=== PATIENT | male | born 1945 | race Caucasian/White ===

== ENCOUNTER → 2021-12-14 16:17 | Outpatient (CLI) | payer MEDICARE, SELFPAY | PROVIDERS: PCP Family Medicine; Visit Provider Ophthalmology | DX: Z01.812 Encounter for preprocedural laboratory examination (principal); Z20.822 Contact with and (suspected) exposure to COVID-19 | CPT/HCPCS: C9803; U0003; U0005 ==

== ENCOUNTER 2021-12-15 08:47 | Day surgery (SDC) | payer MEDICARE, OTHER, SELFPAY ==
[2021-12-15] VITALS (8 sets, daily range): BP systolic 131–170; BP diastolic 69–86; PULSE 56–64; RESP 16–18; TEMP 36.2–36.8; O2SAT 97–100; BMI 33.0
== END 2021-12-15 11:14 | disposition home or self-care (01) ==
LOC: OR 08:50
PROVIDERS: PCP Family Medicine; Visit Provider Ophthalmology
DX: H26.9 Unspecified cataract (principal); J44.9 Chronic obstructive pulmonary disease, unspecified; M19.90 Unspecified osteoarthritis, unspecified site; Z72.0 Tobacco use
CPT/HCPCS: 66982; V2632

== ENCOUNTER → 2021-12-28 11:04 | Outpatient (CLI) | payer MEDICARE, SELFPAY | PROVIDERS: PCP Family Medicine; Visit Provider Ophthalmology | DX: Z01.812 Encounter for preprocedural laboratory examination (principal); Z20.822 Contact with and (suspected) exposure to COVID-19 | CPT/HCPCS: C9803; U0003; U0005 ==

== ENCOUNTER 2021-12-29 07:31 | Day surgery (SDC) | payer MEDICARE, OTHER, SELFPAY ==
[2021-12-24 16:08] VITALS: BMI 33.0
[2021-12-29] VITALS (7 sets, daily range): BP systolic 135–169; BP diastolic 67–87; PULSE 54–60; RESP 16–18; TEMP 36.3–36.4; O2SAT 96–100
== END 2021-12-29 10:01 | disposition home or self-care (01) ==
LOC: OR 07:32
PROVIDERS: PCP Family Medicine; Visit Provider Ophthalmology
DX: H25.811 Combined forms of age-related cataract, right eye (principal)
CPT/HCPCS: 66984; V2632

== ENCOUNTER → 2022-02-09 08:56 | Outpatient (CLI) | payer MEDICARE, OTHER, SELFPAY ==
--- NOTE | 2022-02-09 09:04 | XR_ITS ---
FINAL REPORT CLINICAL HISTORY: hand pain..no trauma FINDINGS: Right hand Three views were obtained. There is no acute fracture or dislocation. There are moderate degenerative changes of the 1st carpometacarpal joint. Mild degenerative changes are seen elsewhere in the hand and wrist. There is several soft tissue calcifications at the palm. IMPRESSION: Degenerative changes without acute bony abnormality. Reviewed, Interpreted and Dictated by Spenser Gong III, MD Transcribed by Eleonora Bazan Authenticated and [facility]
--- NOTE | 2022-02-09 09:04 | XR_ITS ---
FINAL REPORT CLINICAL HISTORY: hand pain..no trauma FINDINGS: Left hand Three views were obtained. There is no acute fracture or dislocation. There are moderate degenerative changes of the 1st carpometacarpal joint. Mild degenerative changes are seen elsewhere in the hand and wrist. There is calcification in the region of the triangular fibrocartilage. IMPRESSION: Degenerative changes without acute bony abnormality. Reviewed, Interpreted and Dictated by Spenser Gong III, MD Transcribed by Eleonora Bazan Authenticated and [facility]
== END ==
PROVIDERS: PCP Family Medicine; Visit Provider Orthopaedic Surgery
DX: M79.641 Pain in right hand; M79.642 Pain in left hand
CPT/HCPCS: 73130

== ENCOUNTER → 2022-12-30 10:54 | Outpatient (POV) | payer MEDICARE, OTHER, SELFPAY ==
[2022-12-30 11:20] VITALS: BP 116/65; PULSE 69; RESP 20; O2SAT 100; BMI 32.4
--- NOTE | 2022-12-30 13:38 | EXP.PAIN.OV ---
HPI Data of Consult Patient: new to practice Consult date: 12/30/22 Requesting Physician: Charity Yang APRN Primary Care Provider: Raphael Mendoza MD Consult Narrative Reason for consult: Low back pain, bilateral leg pain, left buttocks pain History of present illness: Mr. Basurto is a 77 year old male who presents today as a new patient. He is a referral from Dr. Mendoza's office. Today he rates his pain a 7 out of 10. Patient states his pain is all in his low back with radiating symptoms into his lower extremities with numbness and tingling along with left buttocks pain. Patient states this has been going on for over 12 years and progressively worsened over time. 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 He does also have a history of neck pain with cervical fusion years ago and he still continues to have numbness into his bilateral hands and fingers. Patient does describe his back pain as a achy sensation that is worse with increased activity. Patient states he has had injections in the past that did provide significant relief however approximately 2 years ago he went to a pain doctor in [place] who did a epidural that caused significant pain and worsening symptoms. He states at that time he decided to stop injective therapy however his back has gotten much worse and he feels like he needs injections again. Patient has tried Tylenol and ibuprofen along with topicals with minimal relief. He is currently in physical therapy at [facility] in [place] however he has not noticed significant relief. Patient does have a longstanding history of neuropathy and sciatica. He states years ago he did go to a chiropractor 6 different occasions and he was able to relieve his right SI pain. He does frequently use a walker to get around at home and does present today in wheelchair. Patient is currently managed with pregabalin 200 mg 3 times a day from an outside provider. Patient denies any side effects from this medication. Patient also denies any recent imaging of his lumbar spine for at least 10 years. His Dionisio is [id number]. Its been reviewed and appropriate. CC: Charity Yang APRN [facility] Disclaimer: The information contained in this section may have been updated after the patient was seen, as this information can be updated by other users. Medical History (Updated 12/30/22 @ 13:49 by Charity Yang APRN) Aneurysm Anxiety BPH (benign prostatic hyperplasia) Chronic pain syndrome DDD (degenerative disc disease) History of alcohol abuse History of substance abuse HLD (hyperlipidemia) HTN (hypertension) Hypertension Kyphosis Neuropathy Obesity Osteoarthritis Osteopenia Peripheral neuropathy Surgical History (Updated 12/30/22 @ 11:30 by Roula Holder, RN) History of heart bypass surgery Hx of cervical spinal arthrodesis S/p total knee replacement, bilateral Family History Other Cancer Social History (Updated 12/30/22 @ 11:30 by Roula Holder RN) Smoking Status: Current every day smoker tobacco type: cigarettes packs per day: 1 alcohol intake: never current occupational status: retired Travel in the last 8 weeks: None household members: spouse housing: house current occupational exposures/hazards: No caffeine: Yes Review of Systems Review of Systems Review of systems:: pertinent systems reviewed and negative unless documented below Review of systems (narrative): Review of Systems: General: No recent weight changes, no fever, no sleep disturbances Respiratory: No cough, no shortness of air, no recurring pulmonary infections Cardiovascular/peripheral vascular: No chest pain, no palpitations, no edema, no shortness of breath Gastrointestinal: No new onset incontinence, normal bowel movements reported Genitourinary: No new onset incontinence Musculoskeletal: L
== END ==
PROVIDERS: PCP Family Medicine; Visit Provider Nurse Practitioner Family
DX: M54.42 Lumbago with sciatica, left side; M54.41 Lumbago with sciatica, right side; G89.29 Other chronic pain; M54.16 Radiculopathy, lumbar region; M48.02 Spinal stenosis, cervical region; M79.18 Myalgia, other site; M50.10 Cervical disc disorder with radiculopathy, unspecified cervical region
CPT/HCPCS: 99202; G0463

== ENCOUNTER 2023-01-14 10:31 | Day surgery (SDC) | payer MEDICARE, OTHER, SELFPAY ==
[2023-01-14 10:44] VITALS: BP 132/78; PULSE 66; RESP 16; TEMP 36.6; O2SAT 97; BMI 31.5
[2023-01-14 11:03] VITALS: BP 126/80; PULSE 81; RESP 18; O2SAT 97
[2023-01-14 11:04] VITALS: BP 126/80; PULSE 82; RESP 18; O2SAT 97
--- NOTE | 2023-01-14 11:18 | EXP.PAIN.PRO ---
Procedure Date: 01/14/23 Time: 10:50 Anesthesiologist:: Yared Lockhart CRNA Complications:: None Pre-procedure Diagnosis:: Degenerative disc lumbar spine multilevels. Lumbar radiculopathy. Lumbar spondylosis. Multilevel lumbar facet arthropathy. Post-procedure Diagnosis:: Same. Indications for Procedure:: Patient is a pleasant 77-year-old male that comes our clinic today for lumbar epidural steroid injection at L4-5 level. Patient states he has difficulty standing, sitting, walking for any distance secondary to extreme low back pain as well as bilateral hip and leg radicular symptoms. He rates his pain 7/10. Procedure Details:: Procedure: Lumbar epidural steroid injection under fluoroscopy Informed consent was obtained and the risks and benefits of the procedure were explained to the patient. The patient was taken to the procedure room and noninvasive monitors placed, including noninvasive blood pressure cuff and pulse oximeter. The back was viewed using C-arm Fluoroscopy and prepped using Chloraprep as a cleansing solution and the L4-L5 interspace was palpated. Skin and subcutaneous tissues were anesthetized using lidocaine 1.5% and a 25-gauge needle. After this, an 18-gauge Touhy epidural needle was placed into the L4-L5 interspace and advanced using fluoroscopic guidance and loss of resistance to air until the epidural space was encountered. After confirmation of needle placement in the epidural space, with dye, a solution containing normal saline, 3 mL and Depo-Medrol 80 mg were incrementally injected into the lumbar epidural space. The patient tolerated the procedure well with no complications. The patient was observed in the Pain Clinic and then discharged home neurologically intact. Plan and Disposition:: Patient was discharged without incident.
[2023-01-14 11:20] VITALS: BP 131/72; PULSE 62; RESP 18; O2SAT 96
== END 2023-01-14 11:20 | disposition home or self-care (01) ==
PROVIDERS: PCP Family Medicine; Visit Provider Nurse Anesthetist, Certified Registered
DX: M51.16 Intervertebral disc disorders with radiculopathy, lumbar region (principal); M47.26 Other spondylosis with radiculopathy, lumbar region
CPT/HCPCS: 62323; J1040

== ENCOUNTER → 2023-02-02 12:36 | Outpatient (POV) | payer MEDICARE, OTHER, SELFPAY ==
--- NOTE | 2023-02-02 12:45 | EXP.PAIN.SOA ---
[facility] Pain Management SOAP Note Subjective:: Patient is a pleasant 77-year-old male who presents today for follow-up of lumbar epidural steroid injection L4-L5 on 01/14/2023. We are currently treating the patient for degenerative disc disease of cervical and lumbar spine with cervical and lumbar radiculopathy symptoms, cervical spinal stenosis, buttocks pain. Today he rates his pain a 7 out of 10. Patient states he had at least 80% improvement following this injection however after approximately 1 week he was back to his baseline. Patient does state during that 1 week he was able to increase his activity with decreased pain symptoms and felt overall more functional. Today he does continue to state that his more bothersome pain area is in his low back and describes it as a aching, throbbing sensation with numbness and tingling into his bilateral lower extremities. Patient does state the pain interferes with his ability perform activities of daily living such as cooking and cleaning. Patient does state that he was very impressed with how quick and painless the injection blanco. He is interested in repeating this injection at today's visit. He is currently managed with pregabalin 200 mg 3 times a day from an outside provider. Patient denies any side effects from this medication. Patient has tried and failed conservative therapy such as oral medications, heat and ice, topicals, physical therapy and chiropractor in the past. His Dionisio has been reviewed and is appropriate. Review of Systems: General: No recent weight changes, no fever, no sleep disturbances Respiratory: No cough, no shortness of air, no recurring pulmonary infections Cardiovascular/peripheral vascular: No chest pain, no palpitations, no edema, no shortness of breath Gastrointestinal: No new onset incontinence, normal bowel movements reported Genitourinary: No new onset incontinence Musculoskeletal: Low back pain, bilateral leg pain Psychiatric: [Normal mood/affect] Neurological: [Denies weakness in extremities], [denies balance issues] Objective:: Physical Exam: General: Alert and oriented x3, no acute distress, pleasant and cooperative Lungs: Respirations even and unlabored, symmetrical chest expansion Eyes: PERRL Musculoskeletal: Flexion and extension of lumbar [spine] somewhat guarded secondary to pain, [antalgic gait noted] Neurological: Speech clear, no gross sensory deficit Assessment:: Degenerative disc disease of cervical and lumbar spine with cervical and lumbar radiculopathy symptoms, cervical spinal stenosis, buttocks pain Plan:: Patient did have significant improvement of approximately 80% following his lumbar epidural however he is experiencing worsening pain in his low back and legs at today's visit. Patient had limited range of motion of his lumbar spine during today's exam. I have discussed with the patient that he may benefit from a repeat lumbar epidural steroid injection. Risk and benefits were explained to the patient and he would like to proceed forward with this plan of care. Patient is not on any blood thinners. We will schedule the patient an LESI L4-L5. Patient has been instructed to contact the clinic with any concerns before the next appointment. Dr. Dorsey has reviewed this note and agrees with this plan of care. This note was dictated using voice recognition software and make contain errors or omissions. [facility] Disclaimer: The information contained in this section may have been updated after the patient was seen, as this information can be updated by other users. Medical History Aneurysm Anxiety BPH (benign prostatic hyperplasia) Chronic pain syndrome DDD (degenerative disc disease) History of alcohol abuse History of substance abuse HLD (hyperlipidemia) HTN (hypertension) Hypertension Kyphosis Neuropathy Obesity Osteoarthritis Osteopenia Peripheral neuropathy Surgical History (Review
[2023-02-02 13:27] VITALS: BP 141/78; PULSE 64; RESP 18; O2SAT 98; BMI 33.0
== END ==
PROVIDERS: Visit Provider Nurse Practitioner Family
DX: M50.10 Cervical disc disorder with radiculopathy, unspecified cervical region (principal); M48.02 Spinal stenosis, cervical region; M51.16 Intervertebral disc disorders with radiculopathy, lumbar region; M79.18 Myalgia, other site
CPT/HCPCS: 99212; G0463

== ENCOUNTER 2023-02-15 10:46 | Day surgery (SDC) | payer MEDICARE, OTHER, SELFPAY ==
[2023-02-15 11:07] VITALS: BP 122/65; PULSE 64; RESP 16; TEMP 36.4; O2SAT 97; BMI 31.5
[2023-02-15 11:22] VITALS: BP 126/75; PULSE 72; RESP 18; O2SAT 96
[2023-02-15 11:26] VITALS: BP 126/75; PULSE 72; RESP 18; O2SAT 96
--- NOTE | 2023-02-15 11:26 | EXP.PAIN.PRO ---
Procedure Date: 02/15/23 Time: 11:15 Anesthesiologist:: Yared Lockhart CRNA Complications:: None Pre-procedure Diagnosis:: Degenerative disc lumbar spine multilevels. Lumbar radiculopathy. Lumbar spinal stenosis. Lumbar facet arthropathy. Lumbar spondylosis. Post-procedure Diagnosis:: Same. Indications for Procedure:: Very pleasant 77-year-old male that comes our clinic today for lumbar epidural steroid injection at the L4-5 level. Patient has had lumbar epidural steroid injection in the past with 1 to 2 weeks of significant improvement terms of his overall low back pain. He describes low back pain as constant, dull, aching. Patient denies any significant radiculopathy. Procedure Details:: Procedure: Lumbar epidural steroid injection under fluoroscopy Informed consent was obtained and the risks and benefits of the procedure were explained to the patient. The patient was taken to the procedure room and noninvasive monitors placed, including noninvasive blood pressure cuff and pulse oximeter. The back was viewed using C-arm Fluoroscopy and prepped using Chloraprep as a cleansing solution and the L4-L5 interspace was palpated. Skin and subcutaneous tissues were anesthetized using lidocaine 1.5% and a 25-gauge needle. After this, an 18-gauge Touhy epidural needle was placed into the L4-L5 interspace and advanced using fluoroscopic guidance and loss of resistance to air until the epidural space was encountered. After confirmation of needle placement in the epidural space, with dye, a solution containing normal saline, 3 mL and Depo-Medrol 80 mg were incrementally injected into the lumbar epidural space. The patient tolerated the procedure well with no complications. The patient was observed in the Pain Clinic and then discharged home neurologically intact. Plan and Disposition:: Patient was discharged without incident.
[2023-02-15 11:40] VITALS: BP 124/67; PULSE 58; RESP 20
== END 2023-02-15 11:40 | disposition home or self-care (01) ==
PROVIDERS: PCP Family Medicine; Visit Provider Nurse Anesthetist, Certified Registered
DX: M51.16 Intervertebral disc disorders with radiculopathy, lumbar region (principal); M48.061 Spinal stenosis, lumbar region without neurogenic claudication; M47.26 Other spondylosis with radiculopathy, lumbar region
CPT/HCPCS: 62323; J1040

== ENCOUNTER → 2023-03-02 13:48 | Outpatient (POV) | payer MEDICARE, OTHER, SELFPAY ==
[2023-03-02 14:40] VITALS: BP 149/67; PULSE 72; RESP 20; O2SAT 94; BMI 31.5
--- NOTE | 2023-03-02 15:43 | EXP.PAIN.SOA ---
[facility] Pain Management SOAP Note Subjective:: Patient is a pleasant 77-year-old male who presents today for follow-up of lumbar epidural steroid injection L4-L5 on 02/15/2023. We are currently treating the patient for degenerative disc disease of cervical and lumbar spine with cervical and lumbar radiculopathy symptoms, lumbar facet arthropathy, cervical spinal stenosis, buttocks pain. Today he rates his pain a 8 out of 10. Patient denies any new trauma or injury. He does state that he had approximately 50% improvement following this injection however it only lasted 1 week. Patient does state he is back to his baseline today and that all his pain seems to be around his low back and denies any additional radiating symptoms into his legs. Patient does state the pain is worse when he is twisting, bending or trying to get up from a seated or laying position to standing. Patient does describe the pain as an aching, throbbing sensation that does make performing activities of daily living such as cooking and cleaning difficult. He does state that he has been having to rely on a wheelchair more due to worsening pain with ambulation as well. Patient is currently managed with pregabalin 200 mg 3 times a day from outside provider. He denies any side effects from this medication. His Dionisio is [id number]. Its been reviewed and appropriate. Review of Systems: General: No recent weight changes, no fever, no sleep disturbances Respiratory: No cough, no shortness of air, no recurring pulmonary infections Cardiovascular/peripheral vascular: No chest pain, no palpitations, no edema, no shortness of breath Gastrointestinal: No new onset incontinence, normal bowel movements reported Genitourinary: No new onset incontinence Musculoskeletal: Low back pain Psychiatric: [Normal mood/affect] Neurological: [Denies weakness in extremities], [denies balance issues] Objective:: physical Exam: General: Alert and oriented x3, no acute distress, pleasant and cooperative Lungs: Respirations even and unlabored, symmetrical chest expansion Eyes: PERRL Musculoskeletal: Flexion and extension of lumbar [spine] somewhat guarded secondary to pain, [antalgic gait noted] positive Kemps test Neurological: Speech clear, no gross sensory deficit Assessment:: Degenerative disc disease of cervical and lumbar spine with cervical and lumbar radiculopathy symptoms, lumbar facet arthropathy, cervical spinal stenosis, buttocks pain Plan:: Patient is experiencing worsening pain in his low back with limited range of motion. Patient did have a positive Kemps test during today's exam. I have discussed with the patient that he may benefit from a lumbar medial branch block. Risk and benefits were discussed with the patient and he would like to proceed forward with this plan of care. Patient is not on any blood thinners. I have also counseled the patient in future he may benefit fit from a intrathecal pain pump trial. Risk and benefits and educational handouts were given at today's visit. I will discuss this at future appointments. I will also order the patient a compounded cream. Patient will be scheduled for a lumbar medial branch block bilaterally L4-L5 and L5-S1. Patient has been instructed to contact the clinic with any concerns before the next appointment. Dr. Dorsey has reviewed this note and agrees with this plan of care. This note was dictated using voice recognition software and make contain errors or omissions. [facility] Disclaimer: The information contained in this section may have been updated after the patient was seen, as this information can be updated by other users. Medical History Aneurysm Anxiety BPH (benign prostatic hyperplasia) Chronic pain syndrome DDD (degenerative disc disease) History of alcohol abuse History of substance abuse HLD (hyperlipidemia) HTN (hypertension) Hypertension Kyphosis Neuropathy Obesity Osteoart
== END ==
PROVIDERS: PCP Family Medicine; Visit Provider Nurse Practitioner Family
DX: M50.10 Cervical disc disorder with radiculopathy, unspecified cervical region (principal); M51.16 Intervertebral disc disorders with radiculopathy, lumbar region; M47.26 Other spondylosis with radiculopathy, lumbar region; M48.02 Spinal stenosis, cervical region; M79.18 Myalgia, other site
CPT/HCPCS: 99212; G0463

== ENCOUNTER 2023-03-22 12:53 | Day surgery (SDC) | payer MEDICARE, OTHER, SELFPAY ==
[2023-03-22 13:04] VITALS: BP 148/66; BP 151/67; PULSE 67; PULSE 73; RESP 18; TEMP 36.6; O2SAT 96; O2SAT 98; BMI 32.3
--- NOTE | 2023-03-22 13:40 | EXP.PAIN.PRO ---
Procedure Date: 03/22/23 Time: 13:40 Anesthesiologist:: Yared Lockhart CRNA Complications:: None Pre-procedure Diagnosis:: Degenerative disc lumbar spine multilevels. Lumbar radiculopathy. Lumbar spondylosis. Multilevel lumbar facet arthropathy. Lumbar spinal stenosis. Post-procedure Diagnosis:: Same. Indications for Procedure:: Patient is a very pleasant 78-year-old male comes our clinic today for medial branch blocks/facet injections bilateral L4-5, L5-S1. Patient has low back pain he describes as constant, dull, aching. Patient has difficulty standing or ambulating secondary to low back pain. Patient has difficulty with flexion, extension, left and right rotation. He rates his pain 8/10. Procedure Details:: Informed consent was obtained and the risk and benefits of the procedure was explained to the patient. Patient was taken to the procedure room where noninvasive monitors were placed, including noninvasive blood pressure cuff as well as pulse oximeter. The area over the lumbar spine was cleansed using chlorhexidine as a cleansing solution. I anesthetized the skin and subcutaneous tissues with 1% Lidocaine. I placed 22-gauge spinal needles into the facet joint/ medial branches of [L3-L4, L4-L5, and L5-S1] bilaterally. Needle placement was confirmed with fluoroscopy. After confirmation of needle placement, each site was injected with 1 mL of 1% lidocaine and 0.25 % Marcaine and 10 mg of Depo-Medrol. A total of 80 mg of depo medrol was used for bilateral medial branch blocks of [L3-L4, L4-L5, and L5-S1] bilaterally. Patient tolerated the procedure without difficulty. There were no complications. Plan and Disposition:: Patient was discharged without incident.
== END 2023-03-22 14:00 | disposition home or self-care (01) ==
PROVIDERS: PCP Family Medicine; Visit Provider Nurse Anesthetist, Certified Registered
DX: M47.896 Other spondylosis, lumbar region (principal); M51.16 Intervertebral disc disorders with radiculopathy, lumbar region
CPT/HCPCS: 64493; 64494; J1040

== ENCOUNTER 2023-10-17 09:37 | Outpatient (POV) | payer MEDICARE, OTHER, SELFPAY ==
--- OUTSIDE RECORDS SUMMARY | 2023-10-17 09:40 | XMS_ITS | Summary of Care ---
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 Name Role Phone Raphael Mendoza Primary Care Physician Unavailab le Encounter 05/11/22 - 05/25/22 [facility] [address] [place] [phone] Discharge Disposition: Discharged to Home or Self Care Attending Physician: Americo Hartman DO Admitting Physician: Americo Hartman DO Referring Physician: Conner Fry Dr Allergies, Adverse Reactions, Alerts Substance Reaction Severity Status No Known Allergies Active Assessment and Plan Extracted from: Title:Discharge Summary Rehab Author:Americo Hartman DO Date:05/25/22 Discharge Plan Discharge Summary Plan Discharge Medication Post Reconcillation (ST) Home Medications (11) Active acetaminophen 500 mg oral tablet 500 mg = 1 tab, PRN, Oral, q4hr aspirin 81 mg oral tablet, chewable 81 mg = 1 tab, Oral, Daily atorvastatin 40 mg oral tablet 40 mg = 1 tab, Oral, QHS bifidobacterium-lactobacillus oral capsule 1 cap, Oral, Daily DULoxetine 60 mg oral delayed release capsule 60 mg = 1 cap, Oral, Daily Lasix 20 mg oral tablet 20 mg = 1 tab, Oral, qM,W,F Multiple Vitamins with Minerals oral tablet 1 tab, Oral, Daily potassium chloride 10 mEq oral tablet, extended release 10 mEq = 1 tab, Oral, Daily pregabalin 150 mg oral capsule 300 mg = 2 cap, Oral, TID Protonix 20 mg oral delayed release tablet 20 mg = 1 tab, Oral, Daily traMADol 50 mg oral tablet 50 mg = 1 tab, PRN, Oral, q6hr . Disposition: Home with family Discharge Diet: No active diet orders available. Services: Pt will benefit from continuing therapy in an appropriate setting Follow appointments: f/u LMD in 1 to 2 weeks follow up labs as ordered - results to LMD Time Spent on Discharge: _58 minutes Please note that portions of this note have been completed with a voice recognition program. Efforts were made to edit the dictations, but occasionally words are missed transcribed and may demonstrate nonsensical language or typographical errors. Medications acetaminophen 500 mg oral tablet 500 mg = 1 tab, Tab, Oral, q4hr PRN, 0 Refill(s), PAIN (Scale 1-6) Start Date: 05/24/22 Status: Ordered aspirin 81 mg oral tablet, chewable 81 mg, = 1 tab, Indication: Intermittent claudication Tab-Chew, Oral, Daily, 30 tab, 0 Refill(s), Route to Pharmacy Electronically, [facility], 178, 05/18/22 5:26:00 EST, Height/Length Dosing, cm, 105.9, 05/18/22 5:26:00 EST, Weight... Start Date: 05/24/22 Status: Ordered atorvastatin 40 mg oral tablet 40 mg = 1 tab, Tab, Oral, QHS, 30 tab, 0 Refill(s), Route to Pharmacy Electronically, [facility], [address], 05/18/22 5:26:00 EST, Height/Length Dosing, cm, 105.9, 05/18/22 5:26:00 EST, Weight Dosing, kg Start Date: 05/24/22 Status: Ordered bifidobacterium-lactobacillus oral capsule 1 cap, Cap, Oral, Daily, 30 cap, 0 Refill(s), Route to Pharmacy Electronically, [facility], 178, 05/18/22 5:26:00 EST, Height/Length Dosing, cm, 105.9, 05/18/22 5:26:00 EST, WeightDosing, kg Start Date: 05/24/22 Stop Date: 06/23/22 Status: Ordered DULoxetine 60 mg oral delayed release capsule 60 mg = 1 cap, Cap-DR, Oral, Daily, 30 cap, 0 Refill(s), Route to Pharmacy Electronically, [facility], 178, 05/18/22 5:26:00 EST, Height/Length Dosing, cm, 105.9, 05/18/22 5:26:00 EST, Weight Dosing, kg Start Date: 05/24/22 Status: Ordered Lasix 20 mg oral tablet 20 mg = 1 tab, Tab, Oral, qM,W,F, 13 tab, 0 Refill(s), Route to Pharmacy Electronically, [facility], 178, 05/18/22 5:26:00 EST, Height/Length Dosing, cm, 105.9, 05/18/22 5:26:00 EST, Weight Dosing, kg Start Date: 05/24/22 Status: Ordered Multiple Vitamins with Minerals oral tablet 1 tab, Tab, Oral, Daily, 30 tab, 0 Refill(s), Route to Pharmacy Electronically, [facility], 178, 05/18/22 5:26:00 EST, Height/Length Dosing, cm, 105.9, 05/18/22 5:26:00 EST, WeightDosing, kg Start Date: 05/24/22 Stop Date: 06/23/22 Status: Ordered potassium chloride 10 mEq oral tablet, extended release 10 mEq = 1 tab, Tab-ER, Oral, Daily, 30 tab, 0 Refill(s), Route to Pharmacy Electronically, [facility], 178, 05/18/22 5:26:00 EST, Height/Length Dosing, cm, 105.9, 05/18/22 5:26:00EST, Weight Dosing, kg Start Date: 05/24/22 Status: Ordered pregabalin 150 mg oral capsule 300 mg, = 2 cap, Indication: Neuopathic Pain - Spinal Cap, Oral, TID, 180 cap, 0 Refill(s), Route to Pharmacy Electronically, [facility], 178, 05/18/22 5:26:00 EST, Height/Length Dosing, cm, 105.9, 05/18/22 5:26:00 EST, Weight Dosin... Start Date: 05/24/22 Status: Ordered Protonix 20 mg oral delayed release tablet 20 mg = 1 tab, Tab-DR, Oral, Daily, 30 tab, 0 Refill(s), Route to Pharmacy Electronically, [facility], 178, 05/18/22 5:26:00 EST, Height/Length Dosing, cm, 105.9, 05/18/22 5:26:00 EST, Weight Dosing, kg Start Date: 05/24/22 Status: Ordered traMADol 50 mg oral tablet 50 mg = 1 tab, Tab, Oral, q6hr PRN, 20 tab, 0 Refill(s), Dispense: 5 day, PAIN (Scale 7-10), Stop date 05/29/22 14:26:00 EST, Route to Pharmacy Electronically, [facility], 178, 05/18/22 5:26:00 EST, Height/Length Dosing, cm, 105.9,... Start Date: 05/24/22 Stop Date: 05/29/22 Status: Ordered Problem List Condition Effective Dates Status Health Status Inform ant Cognitive impairment(Confirmed) Active Dysphagia(Confirmed) Active Impaired mobility(Confirmed) Active Motor speech disorder(Confirmed) Active Self-care ability(Confirmed) Active Results Laboratory List Name Date Automated Diff HSL 05/24/22 Basic Metabolic Panel HSL 05/24/22 Complete Blood Count w/Auto Diff HSL C difficile Toxin Gene (PCR) HSL (CDiff Toxin Gene (PCR) HSL) 05/21/22 Automated Diff HSL 05/20/22 Basic Metabolic Panel HSL 05/20/22 Complete Blood Count w/Auto Diff HSL Basic Metabolic Panel HSL (BMP HSL) 05/06 09/25 Automated Diff HSL 05/17/22 Complete Blood Count w/Auto Diff HSL 05/27 Prealbumin HSL 05/12/22 Most recent to oldest [Reference Range]: 1 2 3 4 Creatinine Level 0.80 mg/dL (05/24/22 6:44 AM) 1.00 mg/dL (05/20/22 7:48 AM) 1.00 mg/dL (05/19/22 7:00 AM) Estimated Creatinine Clearance 63.02 mL/min 1 (05/24/22 6:44 AM) 63.02 mL/min 2 (05/20/22 7:48 AM) 63.02 mL/min 3 (05/19/22 7:00 AM) Corrected WBC HSL [4-12 x10(3)/mcL] 11 x10(3)/mcL (05/24/22 6:44 AM) 9 x10(3)/mcL (05/20/22 7:48 AM) 6 x10(3)/mcL (05/17/22 6:58 AM) WBC HSL [4.4-11.6 10^3/uL] 11.2 10^3/uL (05/24/22 6:44 AM) 8.8 10^3/uL (05/20/22 7:48 AM) 6.4 10^3/uL (05/17/22 6:58 AM) RBC HSL [04.10-05.80 10^3/uL] 04.50 10^3/uL (05/24/22 6:44 AM) 04.42 10^3/uL (05/20/22 7:48 AM) 04.27 10^3/uL (05/17/22 6:58 AM) Hemoglobin HSL [13.4-17.6 g/dL] 14.0 g/dL (05/24/22 6:44 AM) 13.8 g/dL (05/20/22 7:48 AM) 13.6 g/dL (05/17/22 6:58 AM) Hematocrit HSL [39.9-53.1 %] 39.1 % *LOW* (05/24/22 6:44 AM) 39.1 % *LOW* (05/20/22 7:48 AM) 38.2 % *LOW* (05/17/22 6:58 AM) MCV HSL [79.9-103.5 fL] 86.9 fL (05/24/22 6:44 AM) 88.5 fL (05/20/22 7:48 AM) 89.3 fL (05/17/22 6:58 AM) MCH HSL [25.9-34.1 g/dL] 31.2 g/dL (05/24/22 6:44 AM) 31.1 g/dL (05/20/22 7:48 AM) 31.8 g/dL (05/17/22 6:58 AM) MCHC HSL [31.9-35.4 g/dL] 35.9 g/dL *HI* (05/24/22 6:44 AM) 35.2 g/dL (05/20/22 7:48 AM) 35.6 g/dL *HI* (05/17/22 6:58 AM) Platelet HSL [149-451 10^3/uL] 167 10^3/uL (05/24/22 6:44 AM) 128 10^3/uL *LOW* (05/20/22 7:48 AM) 117 10^3/uL *LOW* (05/17/22 6:58 AM) RDW-CV% HSL [11.5-14.5 %] 13.6 % (05/24/22 6:44 AM) 13.9 % (05/20/22 7:48 AM) 13.9 % (05/17/22 6:58 AM) RDW-SD HSL [35.5-44.0 fL] 42.4 fL (05/24/22 6:44 AM) 42.4 fL (05/24/22 6:44 AM) 45.1 fL *HI* (05/20/22 7:48 AM) 45.1 fL *HI* (05/20/22 7:48 AM) MPV HSL [8.9-13.1 fL] 10.8 fL (05/24/22 6:44 AM) 10.5 fL (05/20/22 7:48 AM) 9.8 fL (05/17/22 6:58 AM) Neutrophil Auto HSL [39.6-77.4 %] 74.8 % (05/24/22 6:44 AM) 71.8 % (05/20/22 7:48 AM) 58.5 % (05/17/22 6:58 AM) Lymphocyte Auto HSL [17.7-51.9 %] 13.0 % *LOW* (05/24/22 6:44 AM) 16.1 % *LOW* (05/20/22 7:48 AM) 22.2 % (05/17/22 6:58 AM) Monocyte Auto HSL [2.9-10.5 %] 8.5 % (05/24/22 6:44 AM) 7.5 % (05/20/22 7:48 AM) 11.4 % *HI* (05/17/22 6:58 AM) Eosinophil Auto HSL [0.0-7.1 %] 2.4 % (05/24/22 6:44 AM) 3.8 % (05/20/22 7:48 AM) 6.4 % (05/17/22 6:58 AM) Basophil Auto HSL [0.0-9.1 %] 1.3 % (05/24/22 6:44 AM) 0.8 % (05/20/22 7:48 AM) 1.5 % (05/17/22 6:58 AM) Neutrophil Absolute HSL [1.1-5.4 10^3/uL] 8.4 10^3/uL *HI* (05/24/22 6:44 AM) 6.4 10^3/uL *HI* (05/20/22 7:48 AM) 3.7 10^3/uL (05/17/22 6:58 AM) Lymphocyte Absolute HSL [0.7-2.8 10^3/uL] 1.5 10^3/uL (05/24/22 6:44 AM) 1.4 10^3/uL (05/20/22 7:48 AM) 1.4 10^3/uL (05/17/22 6:58 AM) Monocyte Absolute HSL [0.0-1.1 10^3/uL] 1.0 10^3/uL (05/24/22 6:44 AM) 0.7 10^3/uL (05/20/22 7:48 AM) 0.7 10^3/uL (05/17/22 6:58 AM) Eosinophil Absolute HSL [0.0-0.5 10^3/uL] 0.3 10^3/uL (05/24/22 6:44 AM) 0.3 10^3/uL (05/20/22 7:48 AM) 0.4 10^3/uL (05/17/22 6:58 AM) Basophil Absolute HSL [0.00-0.06 10^3/uL] 0.10 10^3/uL *HI* (05/24/22 6:44 AM) 0.10 10^3/uL *HI* (05/20/22 7:48 AM) 0.10 10^3/uL *HI* (05/17/22 6:58 AM) Nucleated RBC HSL 0.0 *NA* (05/24/22 6:44 AM) 0.0 *NA* (05/20/22 7:48 AM) 0.0 *NA* (05/17/22 6:58 AM) Sodium HSL [135.9-146.1 mEq/L] 138.0 mEq/L (05/24/22 6:44 AM) 146.0 mEq/L (05/20/22 7:48 AM) 145.0 mEq/L (05/19/22 7:00 AM) Potassium HSL [3.4-4.6 mEq/L] 3.7 mEq/L (05/24/22 6:44 AM) 3.5 mEq/L (05/20/22 7:48 AM) 3.6 mEq/L (05/19/22 7:00 AM) Chloride HSL [95.9-106.1 mEq/L] 105.0 mEq/L (05/24/22 6:44 AM) 115.0 mEq/L *HI* (05/20/22 7:48 AM) 111.0 mEq/L *HI* (05/19/22 7:00 AM) Carbon Dioxide HSL [21.9-29.1 mEq/L] 24.0 mEq/L (05/24/22:44 AM) 23.0 mEq/L (05/20/22 7:48 AM) 27.0 mEq/L (05/19/22 7:00 AM) Anion Gap HSL [8-16 mmol/L] 13 mmol/L (05/24/22 6:44 AM) 12 mmol/L (05/20/22 7:48 AM) 11 mmol/L (05/19/22 7:00 AM) Glucose HSL [74.9-115.1 mg/dL] 98.0 mg/dL (05/24/22 6:44 AM) 119.0 mg/dL *HI* (05/20/22 7:48 AM) 97.0 mg/dL (05/19/22 7:00 AM) BUN HSL [10.9-23.1 mg/dL] 12.0 mg/dL (05/24/22 6:44 AM) 22.0 mg/dL (05/20/22 7:48 AM) 21.0 mg/dL (05/19/22 7:00 AM) Creatinine HSL [0.6-1.6 mg/dL] 0.8 mg/dL (05/24/22 6:44 AM) 1.0 mg/dL (05/20/22 7:48 AM) 1.0 mg/dL (05/19/22 7:00 AM) eGFR-AA HSL 78 *NA* (05/24/22 6:44 AM) 57 *NA* (05/20/22 7:48 AM) 58 *NA* (05/19/22 7:00 AM) eGFR-Non AA HSL 93 *NA* (05/24/22 6:44 AM) 69 *NA* (05/20/22 7:48 AM) 70 *NA* (05/19/22 7:00 AM) BUN/Creat Ratio HSL [5-20 ratio] 15 ratio (05/24/22 6:44 AM) 22 ratio *HI* (05/20/22 7:48 AM) 21 ratio *HI* (05/19/22 7:00 AM) Calcium Total HSL [8.9-11.1 mg/dL] 9.4 mg/dL (05/24/22 6:44 AM) 9.1 mg/dL (05/20/22 7:48 AM) 9.1 mg/dL (05/19/22 7:00 AM) Prealbumin HSL [14.9-36.1 mg/dL] 16.4 mg/dL (05/12/22 6:48 AM) Reason C Diff Toxin HSL Admission (05/21/22 7:00 AM) Toxogenic C Diff HSL Neg (05/21/22 7:00 AM) [id number]-[id number] HSL [Presumptive Neg] Presumptive Neg (05/21/22 7:00 AM) 1Result Comment: Calculated using method: Cockcroft-Gault (default) Calculated using Formula : (140-ageInYears)*IBW/(72) Age: 77 (44720087168.0) Serum Creatinine: 0.80 mg/dL (63684776499.0) Height: 178 cm (52185232368.0) Weight: 105.9 kg (IBW = 73.181 kg) 2Result Comment: Calculated using method: Cockcroft-Gault (default) Calculated using Formula : (140-ageInYears)*IBW/(72*scrInMGperDL) Age: 77 (93421535717.0) Serum Creatinine: 1.00 mg/dL (39910987795.0) Height: 178 cm (58799951837.0) Weight: 105.9 kg (IBW = 73.181 kg) 3Result Comment: Calculated using method: Cockcroft-Gault (default) Calculated using Formula : (140-ageInYears)*IBW/(72*scrInMGperDL) Age: 77 (35860587210.0) Serum Creatinine: 1.00 mg/dL (02811852797.0) Height: 178 cm (72681025144.0) Weight: 105.9 kg (IBW = 73.181 kg) Vital Signs Most recent to oldest [Reference Range]: 1 2 3 Temperature Oral F [96.4-99.1 DegF] 98.4 DegF (05/25/22 8:12 AM) 99 DegF (05/24/22 8:12 PM) 98.3 DegF (05/24/22 7:35 AM) Temperature Axillary F [96.4-99.1 DegF] 97.8 DegF (05/23/22 1:30 PM) Apical Heart Rate [60-100 bpm] 76 bpm (05/23/22 5:00 PM) 79 bpm (05/23/22 1:30 PM) Peripheral Pulse Rate [60-100 bpm] 86 bpm (05/25/22 8:12 AM) 92 bpm (05/24/22 8:12 PM) 75 bpm (05/24/22 7:36 AM) Respiratory Rate [14-20 br/min] 16 br/min (05/25/22 8:12 AM) 18 br/min (05/24/22 8:12 PM) 16 br/min (05/24/22 7:36 AM) Blood Pressure [90-140/60-90 mmHg] 121/74mmHg (05/25/22 8:12 AM) 104/71mmHg (05/24/22 7:35 AM) Systolic Blood Pressure [90-140 mmHg] 170 mmHg *HI* (05/24/22 8:12 PM) Diastolic Blood Pressure [60-90 mmHg] 85 mmHg (05/24/22 8:12 PM) Mean Arterial Pressure, Cuff 82 mmHg (05/24/22 7:35 AM) 106 mmHg (05/23/22 7:15 PM) 89 mmHg (05/22/22 7:13 PM) Vital Signs Additional Information Intialliy SpO2 84-87% on room air. Pt plaed on 2L O2, SpO2 98%. BP checked prior to placement of B aron hose (05/14/22 7:30 AM) Per PT- pt has low BP in earlier session. OT checked BP and pt 82/46, RN aware. Pt asympomatic and wishes to partipcate in therapy (05/13/22 11:00 AM) Temperature Oral [35.8-37.3 DegC] 37.2 DegC (05/24/22 8:12 PM) Temperature Oral 36.8 DegC 1 (05/24/22 7:35 AM) 36.4 DegC 2 (05/23/22 7:15 PM) 1Result Comment: Charted by SYSTEM secondary to charting of Temperature Oral F on a Vitals Monitor. Rule: VITALSLINK_CALCULATIONS_2 2Result Comment: Charted by SYSTEM secondary to charting of Temperature Oral F on a Vitals Monitor. Rule: VITALSLINK_CALCULATIONS_2 Care Team Personnel Name: Raphael Mendoza
--- NOTE | 2023-10-17 10:29 | EXP.PAIN.SOA ---
[facility] Pain Management SOAP Note Subjective:: Patient is a pleasant 78-year-old male who presents today for his second lumbar medial branch block bilaterally L4-L5 and L5-S1 on 03/22/2023. He denies any new trauma or injury. He rates his pain an 8 out of 10. Patient states that this 1 did not daily as well as his last. Patient states at least 40% however it only lasted for 1 week. Patient had 50% relief for more lasting 1 week with his first lumbar medial branch block. Patient states that he continues to still have the chronic low back pain that is worse with certain movements. He is prescribed pregabalin and duloxetine from an outside provider. His Dionisio has been reviewed and is appropriate. Review of Systems: General: No recent weight changes, no fever, no sleep disturbances Respiratory: No cough, no shortness of air, no recurring pulmonary infections Cardiovascular/peripheral vascular: No chest pain, no palpitations, no edema, no shortness of breath Gastrointestinal: No new onset incontinence, normal bowel movements reported Genitourinary: No new onset incontinence Musculoskeletal: Low back pain Psychiatric: [Normal mood/affect] Neurological: [Denies weakness in extremities], [denies balance issues] Objective:: Physical Exam: General: Alert and oriented x3, no acute distress, pleasant and cooperative Lungs: Respirations even and unlabored, symmetrical chest expansion Eyes: PERRL Musculoskeletal: Flexion and extension of lumbar [spine] somewhat guarded secondary to pain, [antalgic gait noted] positive Kemps test Neurological: Speech clear, no gross sensory deficit Assessment:: 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 I have discussed with the patient that he may benefit from a lumbar RFA however the patient is not interested in this option at this time. We will follow-up with this at future visits. I will send in a 2-week dose of tramadol 50 mg twice daily. Patient will return to clinic in 1 month for reevaluation of symptoms and plan of care. Patient has been instructed to contact the clinic with any concerns before the next appointment. Dr. Dorsey has reviewed this note and agrees with this plan of care. This note was dictated using voice recognition software and make contain errors or omissions. [facility] Disclaimer: The information contained in this section may have been updated after the patient was seen, as this information can be updated by other users. Medical History Kyphosis Osteoarthritis BPH (benign prostatic hyperplasia) Osteopenia DDD (degenerative disc disease) Peripheral neuropathy Chronic pain syndrome Anxiety Obesity HTN (hypertension) HLD (hyperlipidemia) Aneurysm History of alcohol abuse History of substance abuse Hypertension Neuropathy Surgical History Hx of cervical spinal arthrodesis S/p total knee replacement, bilateral History of heart bypass surgery Family History Other Cancer Social History (Updated 03/22/23 @ 13:05 by Frances Carpenter RN) Smoking Status: Current every day smoker tobacco type: cigarettes packs per day: 1 alcohol intake: never current occupational status: other Travel in the last 8 weeks: None household members: spouse housing: house current occupational exposures/hazards: No caffeine: Yes
[2023-10-17 10:46] VITALS: BP 140/74; PULSE 80; RESP 18; O2SAT 98; BMI 30.1
== END 2023-10-17 23:59 | disposition home or self-care (01) ==
PROVIDERS: Visit Provider Nurse Practitioner Family
DX: M51.16 Intervertebral disc disorders with radiculopathy, lumbar region (principal); M47.896 Other spondylosis, lumbar region; M50.10 Cervical disc disorder with radiculopathy, unspecified cervical region; M48.02 Spinal stenosis, cervical region; M79.18 Myalgia, other site
CPT/HCPCS: 99212; G0463

== ENCOUNTER 2023-11-16 08:55 | Outpatient (POV) | payer MEDICARE, OTHER, SELFPAY ==
--- NOTE | 2023-11-16 09:19 | EXP.PAIN.SOA ---
[facility] Pain Management SOAP Note Subjective:: Patient is a pleasant 78-year-old male who presents today for 1 month follow-up. Today he rates his pain an 8 out of 10. He denies any new trauma or injury. He does state that he continues to have the chronic pain they are in his low back. Patient states that the tramadol medication that we sent in did not seem to do anything. He stated he noticed no changes overall. Patient is requesting if we can do other medication. Patient is prescribed pregabalin and duloxetine from outside providers. His Dionisio has been reviewed and is appropriate. Review of Systems: General: No recent weight changes, no fever, no sleep disturbances Respiratory: No cough, no shortness of air, no recurring pulmonary infections Cardiovascular/peripheral vascular: No chest pain, no palpitations, no edema, no shortness of breath Gastrointestinal: No new onset incontinence, normal bowel movements reported Genitourinary: No new onset incontinence Musculoskeletal: Low back pain Psychiatric: [Normal mood/affect] Neurological: [Denies weakness in extremities], [denies balance issues] Objective:: Physical Exam: General: Alert and oriented x3, no acute distress, pleasant and cooperative Lungs: Respirations even and unlabored, symmetrical chest expansion Eyes: PERRL Musculoskeletal: Flexion and extension of lumbar [spine] somewhat guarded secondary to pain, [antalgic gait noted] Neurological: Speech clear, no gross sensory deficit Assessment:: 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 We did previously get cervical imaging. I have counseled the patient that we will try Mason 5 mg twice a day and provide a 1 month supply of this medication. Patient was counseled that we will have to see him monthly in order to prescribe this medication and that we will have to also do urine drug screens and possible random pill counts. Patient is agreeable to this option. We did discuss additional injection therapy such as the lumbar RFA however he does continue to state he has not been pleased with how the injections have done and that it is very temporary and he feels like the oral medications would be more beneficial. Patient will return to clinic in 1 month for reevaluation of symptoms and plan of care. Risks and benefits of the medication have been explained in detail to the patient. The patient does understand the risk of dependence on the medication when given over a prolonged period. Patient has been advised of risks of oversedation with the prescribed medication. Narcan has been offered to the paitent in the event of oversedation. Patient has been advised that a family member should also be educated regarding administration of Narcan. The patient has been advised to consult with his/her primary care provider and pharmacist regarding drug-drug interaction of medications currently prescribed. Patient has been prescribed a controlled substance after being counseled on the medication, medication safety, and possible side effects. Opioid contract was reviewed and signed by the patient, and that they have agreed to all of the terms set forth by our compliance program. Patient has been instructed to contact the clinic with any concerns before the next appointment. Dr. Dorsey has reviewed this note and agrees with this plan of care. This note was dictated using voice recognition software and make contain errors or omissions. [facility] Disclaimer: The information contained in this section may have been updated after the patient was seen, as this information can be updated by other users. Medical History Kyphosis Osteoarthritis BPH (benign prostatic hyperplasia) Osteopenia DDD (degenerative disc disease) Peripheral neuropathy Chronic pain syndrome Anxiety Obesity HTN (hypertension) HLD (hyperlipidemia) Aneurysm History of alcohol abuse History of substance abuse Hypertension Neuropathy Surgical History Hx of cervical spinal arthrodesis S/p total knee replacement, bilateral History of heart bypass surgery Family History Other Cancer Social History Smoking Status: Current every day smoker tobacco type: cigarettes packs per day: 1 alcohol intake: never current occupational status: other Travel in the last 8 weeks: None household members: spouse housing: house current occupational exposures/hazards: No caffeine: Yes
[2023-11-16 09:26] VITALS: BP 165/61; PULSE 60; RESP 18; O2SAT 96; BMI 31.5
== END 2023-11-16 23:59 | disposition home or self-care (01) ==
PROVIDERS: PCP Family Medicine; Visit Provider Nurse Practitioner Family
DX: M50.10 Cervical disc disorder with radiculopathy, unspecified cervical region (principal); M51.16 Intervertebral disc disorders with radiculopathy, lumbar region; M47.22 Other spondylosis with radiculopathy, cervical region; M48.02 Spinal stenosis, cervical region; M79.18 Myalgia, other site
CPT/HCPCS: 99212; G0463

== ENCOUNTER 2023-12-15 08:46 | Outpatient (POV) | payer MEDICARE, OTHER, SELFPAY ==
[2023-12-15 09:21] VITALS: BP 148/63; BP 174/93; PULSE 73; RESP 18; O2SAT 98; BMI 31.5
--- NOTE | 2023-12-15 10:24 | A.OFFVIS_ITS ---
[facility] Disclaimer: The information contained in this section may have been updated after the patient was seen, as this information can be updated by other users. Medical History Kyphosis Osteoarthritis BPH (benign prostatic hyperplasia) Osteopenia DDD (degenerative disc disease) Peripheral neuropathy Chronic pain syndrome Anxiety Obesity HTN (hypertension) HLD (hyperlipidemia) Aneurysm History of alcohol abuse History of substance abuse Hypertension Neuropathy Surgical History Hx of cervical spinal arthrodesis S/p total knee replacement, bilateral History of heart bypass surgery Family History Other Cancer Social History Smoking Status: Current every day smoker tobacco type: cigarettes packs per day: 1 alcohol intake: never current occupational status: other Travel in the last 8 weeks: None household members: spouse housing: house current occupational exposures/hazards: No caffeine: Yes PM Subjective & Objective Subjective Subjective:: Patient is a pleasant 78-year-old male who presents today for medication refill and follow-up. Today he rates his pain an 8 out of 10. Patient denies any new trauma or injury. Patient was tried on Gage 5 mg twice a day at his last visit and does state that this helps however it does not seem to help long and is requesting if we can do any additional changes to the medication. Patient does have chronic pain throughout his neck and low back and does have a prior cervical fusion. Patient is prescribed pregabalin and duloxetine from outside providers. His Dionisio has been reviewed and is appropriate. Review of Systems: General: No recent weight changes, no fever, no sleep disturbances Respiratory: No cough, no shortness of air, no recurring pulmonary infections Cardiovascular/peripheral vascular: No chest pain, no palpitations, no edema, no shortness of breath Gastrointestinal: No new onset incontinence, normal bowel movements reported Genitourinary: No new onset incontinence Musculoskeletal: Chronic neck and low back pain Psychiatric: [Normal mood/affect] Neurological: [Denies weakness in extremities], [denies balance issues] Pain at rest (0-10 scale): 8 Objective Objective:: Physical Exam: General: Alert and oriented x3, no acute distress, pleasant and cooperative Lungs: Respirations even and unlabored, symmetrical chest expansion Eyes: PERRL Musculoskeletal: Flexion and extension of cervical [spine] somewhat guarded secondary to pain, [antalgic gait noted] Neurological: Speech clear, no gross sensory deficit Has patient had previous pain injection?: No Conservative treatment options previously tried: Home exercise plan Length of treatment: Longer than 6 weeks and Prescription medications Length of treatment: Longer than 6 weeks Meds Home Medications and Allergies Home Medications Medication Instructions Recorded Confirmed Type duloxetine 60 mg capsule,delayed 1 cap PO DAILY . 02/09/22 12/15/23 History release furosemide 40 mg tablet 40 mg PO DAILY . 02/09/22 12/15/23 History pregabalin 200 mg capsule 200 mg PO TID . 02/09/22 12/15/23 History tramadol 50 mg tablet 50 mg PO BID PRN pain #28 tabs 10/17/23 12/15/23 Rx hydrocodone 5 mg-acetaminophen 325 1 tab PO BID #60 tabs 11/16/23 12/15/23 Rx mg tablet New Prescriptions to Start Prescriptions: Allergies Allergy/AdvReac Type Severity Reaction Status Date / Time No Known Allergies Allergy Verified 01/14/23 10:45 Assessment and Plan *Assessment and plan (1) Spinal stenosis, cervical region: Status: Acute Category: Medical Code(s): M48.02 - Spinal stenosis, cervical region (2) Lumbar radiculopathy: Status: Acute Category: Medical Code(s): M54.16 - Radiculopathy, lumbar region (3) Low back pain: Status: Acute Qualifiers: Chronicity: chronic Back pain laterality: bilateral Sciatica presence: with sciatica Sciatica laterality: bilateral sciatica Qualified Code(s): M54.42 - Lumbago with sciatica, left side; M54.41 - Lumbago with sciatica, right side; G89.29 - Other chronic pain Category: Medical Code(s): M54.50 - Low back pain, unspecified (4) Cervical radiculopathy: Status: Acute Category: Medical Code(s): M54.12 - Radiculopathy, cervical region (5) Degenerative disc disease, cervical: Status: Acute Category: Medical Code(s): M50.30 - Other cervical disc degeneration, unspecified cervical region Plan I have counseled the patient due to his chronic pain that he may be a beneficial candidate of a intrathecal pain pump trial. Risk and benefits and educational handouts were given at today's visit. We will change his prescription to Gage 7.5 mg 3 times a day and provide a 1 month supply of this medication. Patient will return to clinic in 1 month for reevaluation of symptoms and plan of care. Risks and benefits of the medication have been explained in detail to the patient. The patient does understand the risk of dependence on the medication when given over a prolonged period. Patient has been advised of risks of oversedation with the prescribed medication. Narcan has been offered to the paitent in the event of oversedation. Patient has been advised that a family member should also be educated regarding administration of Narcan. The patient has been advised to consult with his/her primary care provider and pharmacist regarding drug-drug interaction of medications currently prescribed. Patient has been prescribed a controlled substance after being counseled on the medication, medication safety, and possible side effects. Opioid contract was reviewed and signed by the patient, and that they have agreed to all of the terms set forth by our compliance program. Patient has been instructed to contact the clinic with any concerns before the next appointment. Dr. Dorsey has reviewed this note and agrees with this plan of care. This note was dictated using voice recognition software and make contain errors or omissions.
== END 2023-12-15 23:59 | disposition home or self-care (01) ==
PROVIDERS: PCP Family Medicine; Visit Provider Nurse Practitioner Family
DX: G89.29 Other chronic pain; M48.02 Spinal stenosis, cervical region; M50.10 Cervical disc disorder with radiculopathy, unspecified cervical region
CPT/HCPCS: 99212; G0463

== ENCOUNTER 2024-01-12 10:17 | Outpatient (POV) | payer MEDICARE, OTHER, SELFPAY ==
--- NOTE | 2024-01-12 10:21 | A.OFFVIS_ITS ---
[facility] Disclaimer: The information contained in this section may have been updated after the patient was seen, as this information can be updated by other users. Medical History Kyphosis Osteoarthritis BPH (benign prostatic hyperplasia) Osteopenia DDD (degenerative disc disease) Peripheral neuropathy Chronic pain syndrome Anxiety Obesity HTN (hypertension) HLD (hyperlipidemia) Aneurysm History of alcohol abuse History of substance abuse Hypertension Neuropathy Surgical History Hx of cervical spinal arthrodesis S/p total knee replacement, bilateral History of heart bypass surgery Family History Other Cancer Social History Smoking Status: Current every day smoker tobacco type: cigarettes packs per day: 1 alcohol intake: never current occupational status: other Travel in the last 8 weeks: None household members: spouse housing: house current occupational exposures/hazards: No caffeine: Yes PM Subjective & Objective Subjective Subjective:: Patient is a pleasant 78-year-old male who presents today for medication refill and follow-up. Today he rates his pain an 2 out of 10. Patient denies any new trauma or injury. He does continue to have pain throughout his neck and low back. Patient is prescribed [place] 7.5 mg 3 times a day from our office. He denies any side effects from this medication. This medication was increased at the last visit and he states it has been a complete difference from what his pain had been. He states that he wakes up with pain and that typically it does take about an hour for the medicine to kick in but will increase dosage and extra tablets is 100 times better than what it has been. Patient is prescribed pregabalin and duloxetine from outside providers. His Dionisio has been reviewed and is appropriate. Review of Systems: General: No recent weight changes, no fever, no sleep disturbances Respiratory: No cough, no shortness of air, no recurring pulmonary infections Cardiovascular/peripheral vascular: No chest pain, no palpitations, no edema, no shortness of breath Gastrointestinal: No new onset incontinence, normal bowel movements reported Genitourinary: No new onset incontinence Musculoskeletal: Chronic neck and low back pain Psychiatric: [Normal mood/affect] Neurological: [Denies weakness in extremities], [denies balance issues] Pain at rest (0-10 scale): 2 Objective Objective:: Physical Exam: General: Alert and oriented x3, no acute distress, pleasant and cooperative Lungs: Respirations even and unlabored, symmetrical chest expansion Eyes: PERRL Musculoskeletal: Flexion and extension of cervical [spine] somewhat guarded secondary to pain, [antalgic gait noted] Neurological: Speech clear, no gross sensory deficit Has patient had previous pain injection?: No Conservative treatment options previously tried: Prescription medications Length of treatment: Longer than 6 weeks Meds Home Medications and Allergies Home Medications ?Medication ?Instructions ?Recorded ?Confirmed ?Type duloxetine 60 mg capsule,delayed 1 cap PO DAILY . 02/09/22 12/15/23 History release furosemide 40 mg tablet 40 mg PO DAILY . 02/09/22 12/15/23 History pregabalin 200 mg capsule 200 mg PO TID . 02/09/22 12/15/23 History tramadol 50 mg tablet 50 mg PO BID PRN pain #28 tabs 10/17/23 12/15/23 Rx hydrocodone 5 mg-acetaminophen 325 1 tab PO BID #60 tabs 11/16/23 12/15/23 Rx mg tablet hydrocodone 7.5 mg-acetaminophen 1 tab PO TID #90 tabs 12/15/23 Rx 325 mg tablet New Prescriptions to Start Prescriptions: Allergies Allergy/AdvReac Type Severity Reaction Status Date / Time No Known Allergies Allergy Verified 01/14/23 10:45 Assessment and Plan *Assessment and plan (1) Lumbar radiculopathy: Status: Acute Category: Medical Code(s): M54.16 - Radiculopathy, lumbar region (2) Cervical radiculopathy: Status: Acute Category: Medical Code(s): M54.12 - Radiculopathy, cervical region (3) Degenerative disc disease, cervical: Status: Acute Category: Medical Code(s): M50.30 - Other cervical disc degeneration, unspecified cervical region Plan We will refill the patient's [place] and provide a 1 month supply of this medication. Patient will return to clinic in 1 month for reevaluation of symptoms and plan of care. Risks and benefits of the medication have been explained in detail to the patient. The patient does understand the risk of dependence on the medication when given over a prolonged period. Patient has been advised of risks of oversedation with the prescribed medication. Narcan has been offered to the paitent in the event of oversedation. Patient has been advised that a family member should also be educated regarding administration of Narcan. The patient has been advised to consult with his/her primary care provider and pharmacist regarding drug-drug interaction of medications currently prescribed. Patient has been prescribed a controlled substance after being counseled on the medication, medication safety, and possible side effects. Opioid contract was reviewed and signed by the patient, and that they have agreed to all of the terms set forth by our compliance program. Patient has been instructed to contact the clinic with any concerns before the next appointment. Dr. Dorsey has reviewed this note and agrees with this plan of care. This note was dictated using voice recognition software and make contain errors or omissions.
[2024-01-12 10:59] VITALS: BP 149/85; PULSE 65; RESP 18; O2SAT 95; BMI 31.5
== END 2024-01-12 23:59 | disposition home or self-care (01) ==
PROVIDERS: PCP Family Medicine; Visit Provider Nurse Practitioner Family
DX: M50.10 Cervical disc disorder with radiculopathy, unspecified cervical region (principal); F17.210 Nicotine dependence, cigarettes, uncomplicated; Z95.1 Presence of aortocoronary bypass graft; Z96.653 Presence of artificial knee joint, bilateral
CPT/HCPCS: 99212; G0463

== ENCOUNTER 2024-11-15 22:23 | Inpatient (IN) | payer MEDICARE, OTHER, SELFPAY ==
[2024-11-15 22:35] VITALS: BP 134/83; PULSE 50; RESP 20; TEMP 36.5; O2SAT 98
--- NOTE | 2024-11-15 22:36 | PC.NURSE ---
PT ARRIVED TO FLOOR AT 22:30 BY EMS
--- NOTE | 2024-11-15 22:44 | ECG_ITS ---
APPROVED REPORT Exam: Resting ECG HR:63 bpm ECG Measurements Heart Rate 63 AXES QRSd 158 QRS -67 QT 455 T 106 QTc 462 Conclusion UNCERTAIN IRREGULAR RHYTHM LEFT AXIS DEVIATION [QRS AXIS < -30] LEFT BUNDLE BRANCH BLOCK [120+ ms QRS DURATION, 80+ ms Q/S IN V1/V2, 85+ ms R IN I/aVL/V5/V6] ABNORMAL ECG UNCONFIRMED REPORT Electronically signed by : Alejo Gordillo MD 11/17/2024 12:48:50
--- NOTE | 2024-11-15 22:45 | XR_ITS ---
PROCEDURE INFORMATION: Exam: XR Chest Exam date and time: 11/15/2024 10:56 PM Age: 79 years old Clinical indication: Shortness of breath; Additional info: SOB TECHNIQUE: Imaging protocol: Radiologic exam of the chest. Views: 1 view. COMPARISON: No relevant prior studies available. FINDINGS: Lungs: Pulmonary vascular congestion and interstitial opacities bilaterally. No focal consolidation. Pleural spaces: Unremarkable. No pleural effusion. No pneumothorax. Heart/Mediastinum: The heart is enlarged. Prosthetic cardiac valve. Sternal wires. Bones/joints: Unremarkable. IMPRESSION: Cardiomegaly, pulmonary vascular congestion and interstitial opacities. Suspicious for congestive heart failure.
[2024-11-15 23:15] LABS: Basophils # 0.1 K/mm3 (0-0.2); Basophils % 0.9 % (0.1-2.0); Eosinophils # 0.3 Kmm3 (0.0-0.4); Eosinophils % 3.4 % (0.1-12.0); Hematocrit 38.1 % (42.0-52.0); Hemoglobin 12.4 g/dL (14.1-18.0); Immature Granulocytes # 0.08 10^3uL; Immature Granulocytes % 0.8 %; Lymphocytes # 1.1 K/mm3 (0.7-4.5); Lymphocytes % 11.6 % (10-50); Mean Corpuscular HGB Conc 32.5 g/dL (31.8-35.4); Mean Corpuscular Hemoglobin 27.2 pg (27.0-31.2); Mean Corpuscular Volume 83.6 fl (80-94); Mean Platelet Volume 11.3 fl (7.4-10.4); Monocytes # 0.8 K/mm3 (0.1-1.0); Neutrophils # 7.3 K/mm3 (1.8-7.8); Neutrophils % 75.3 % (37.0-80.0); Nucleated Red Blood Cells # 0 10^3/uL; Nucleated Red Blood Cells % 0 %; Platelet Count 162 K/mm3 (142-424); Red Blood Count 4.56 M/mm3 (4.60-6.20); Red Cell Distribution Width 18.5 % (11.5-17.5); Red Cell Distribution Width-SD 55.5 fL; White Blood Count 9.7 K/mm3 (4.8-10.8)
[2024-11-15 23:25] LABS: Albumin Level 3.6 g/dl (3.5-5.0); Chloride 104 mmol/L (98-107)
[2024-11-15 23:26] LABS: Potassium 3.4 mmoL/L (3.5-5.1); Sodium 139 mmol/L (136-145)
[2024-11-15 23:28] LABS: Alanine Aminotransferase 27 U/L (12-78); Anion Gap 7.4 mEq/L (5-15); Aspartate Amino Transferase 38 U/L (17-59); Blood Urea Nitrogen 32 mg/dl (9-20); Carbon Dioxide 31 mmol/L (22.0-30.0); Estimated Glomerular Filt Rate 64 ml/min (>60); GFR (African American) 78 ML/MIN (>60)
[2024-11-15 23:29] LABS: Albumin/Globulin Ratio 1.2 (1.1-1.8); Alkaline Phosphatase 149 U/L (38-126); Bilirubin,Total 0.8 mg/dl (0.2-1.3); Calcium 10.1 mg/dl (8.4-10.2); Chol/HDL Ratio 5.1 (1-3.5); Cholesterol 139 mg/dl (140-200); Glucose 103 mg/dl (74-100); HDL Cholesterol 27 mg/dl (40-60); Magnesium 1.8 mg/dl (1.6-2.3); Total Protein,Serum 6.6 g/dl (6.3-8.2); Triglycerides 64 mg/dl (30-150); VLDL Cholesterol 13 mg/dL (0-40)
[2024-11-15 23:38] LABS: INR 1.12 (0.9-1.1); Prothrombin Time 12.3 seconds (10.1-12.5)
[2024-11-15 23:39] VITALS: BMI 34.7
[2024-11-15 23:43] LABS: Direct LDL Cholesterol 87.93 mg/dL (100-129)
--- NOTE | 2024-11-15 23:45 | EXP.HP ---
History of Present Illness *Admission Date: 11/15/24 *Reason for visit:: SOB *History of present illness: Patient is a 79-year-old male with past medical history of CHF, who presents to the hospital due to complaints of bilateral lower extremity swelling as well as elevated troponin. Patient presented as a transfer from outside facility, patient was noted to have elevated troponin and was sent to [facility] for cardiology evaluation. Cardiology was called from the outside facility and recommended transfer. Patient otherwise denied active chest pain, he mentions he has been having shortness of breath as well as bilateral lower extremity edema. Patient denied fevers chills nausea vomiting diarrhea constipation dysuria. [facility] Disclaimer: The information contained in this section may have been updated after the patient was seen, as this information can be updated by other users. Medical History (Updated 11/16/24 @ 06:19 by Fracisco Tony MD) Kyphosis Osteoarthritis BPH (benign prostatic hyperplasia) Osteopenia DDD (degenerative disc disease) Peripheral neuropathy Chronic pain syndrome Anxiety Obesity HTN (hypertension) HLD (hyperlipidemia) Aneurysm History of alcohol abuse History of substance abuse Hypertension Neuropathy Surgical History Hx of cervical spinal arthrodesis S/p total knee replacement, bilateral History of heart bypass surgery Family History Other Cancer Social History (Updated 11/15/24 @ 23:21 by Lauren Mccabe RN) Smoking Status: Current every day smoker tobacco type: cigarettes packs per day: 1 alcohol intake: never current occupational status: other Travel in the last 8 weeks?: None household members: spouse housing: house current occupational exposures/hazards: No caffeine: Yes Have you lived/traveled outside [place] in past 30 days?: No Contact w/someone who lives/traveled outside [place] past 30 days?: No Exposure to someone with infectious disease in past 14 days?: No Do you have a fever (greater than 100.4 F or 38 C)?: No Have you tested positive for COVID-19?: No Exposed to someone with COVID-19 in past 14 days?: No Do you have a sore throat?: No Do you have a cough?: No Do you have any weakness?: No Do you have any diarrhea?: No Are you experiencing any unusual bleeding?: No Do you have any muscle aches/pain?: No Do you have any abdominal pain?: No Are you experiencing loss of taste or smell?: No Other Medical History Have you received the Flu Vaccine for this season: No Have you received the Pneumonia Vaccine: Yes Review of Systems Review of Systems Review of systems:: pertinent systems reviewed and negative unless documented below Meds Home Medications and Allergies Home Medications ?Medication ?Instructions ?Recorded ?Confirmed ?Type duloxetine 60 mg capsule,delayed 1 cap PO DAILY . 02/09/22 11/15/24 History release furosemide 40 mg tablet 40 mg PO DAILY . 02/09/22 11/15/24 History pregabalin 200 mg capsule 200 mg PO TID . 02/09/22 11/15/24 History New Prescriptions to Start Prescriptions: Allergies Allergy/AdvReac Type Severity Reaction Status Date / Time No Known Allergies Allergy Verified 01/14/23 10:45 Exam Data for Last 24 hours Vital signs and Labs for Last 24 Hours: O2 Del Method Room Air 11/15/24 22:29 Laboratory Results - last 24 hr 11/15/24 23:00: WBC 9.7, RBC 4.56 L, Hgb 12.4 L, Hct 38.1 L, MCV 83.6, MCH 27.2, MCHC 32.5, RDW 18.5 H, Plt Count 162, MPV 11.3 H, Neut % (Auto) 75.3, Lymph % (Auto) 11.6, [place] % (Auto) 8.0, Eos % (Auto) 3.4, Baso % (Auto) 0.9, Neut # (Auto) 7.3, Lymph # (Auto) 1.1, [place] # (Auto) 0.8, Eos # (Auto) 0.3, Baso # (Auto) 0.1, PT 12.3, INR 1.12 H, Sodium 139, Potassium 3.4 L, Chloride 104, Carbon Dioxide 31 H, Anion Gap 7.4, BUN 32 H, Creatinine 1.10, Estimated GFR 64, Est GFR ( Amer) 78, Glucose 103 H, Lactate 1.0, Calcium 10.1, Magnesium 1.8, Total Bilirubin 0.8, AST 38, ALT 27, Alkaline Phosphatase 149 H, Total Protein 6.6, Albumin 3.6, Globulin 3.0, Albumin/Globulin Ratio 1.2, Triglycerides 64, Cholesterol 139 L, VLDL Cholesterol 13, HDL Cholesterol 27 L, Cholesterol/HDL Ratio 5.1 H I & O for Last 24 hours: Intake & Output 11/12/24 11/13/24 11/14/24 11/15/24 23:59 23:59 23:59 23:59 Output Total 1150 / 1150 Balance -1150 / -1150 Weight 109.633 kg Constitutional Constitutional: no acute distress *Routine HEENT Exam Head: Present normocephalic Eye: Present EOMI and PERRL ENT: Present mucous membranes moist *Routine Neck Exam Neck: Present supple; Absent lymphadenopathy *Routine Respiratory Exam Respiratory: Present CTA bilaterally *Routine Cardiovascular Exam Cardiovascular: Present RRR *Routine Abdominal Exam Abdominal: Present soft and normoactive bowel sounds; Absent tenderness *Routine Rectal Exam Rectal:: deferred *Routine Genitalia Exam Genitalia:: deferred *Routine Extremities Exam Extremities: Present edema; Absent cyanosis or clubbing *Routine Skin Exam Skin: Present warm; Absent rash *Routine Neurological Exam Neurological: Present alert and oriented X3 Assessment and Plan *Assessment and plan (1) Acute CHF: Status: Acute Category: Medical Code(s): I50.9 - Heart failure, unspecified (2) Elevated troponin: Status: Acute Category: Medical Code(s): R79.89 - Other specified abnormal findings of blood chemistry Plan Patient is a 79-year-old male with past medical history of CHF, who presents to the hospital due to complaints of bilateral lower extremity swelling as well as elevated troponin. Patient presented as a transfer from outside facility, patient was noted to have elevated troponin and was sent to [facility] for cardiology evaluation. Cardiology was called from the outside facility and recommended transfer. Patient otherwise denied active chest pain, he mentions he has been having shortness of breath as well as bilateral lower extremity edema. Patient denied fevers chills nausea vomiting diarrhea constipation dysuria. Assessment and plan Shortness of breath, bilateral lower extremity edema likely secondary to acute CHF Ordered echocardiogram Ordered 20 IV twice daily Lasix Consult cardiology Monitor on cardiac telemetry Elevated troponin Order echocardiogram Consult cardiology Rule out ACS Chronic medical conditions Hypertension Hyperlipidemia Resume home medications when medication list is updated DVT prophylaxis-heparin
[2024-11-15 23:47] LABS: Troponin I 0.09 ng/ml (0.00-0.034)
[2024-11-16] VITALS (9 sets, daily range): BP systolic 110–157; BP diastolic 53–76; PULSE 45–74; RESP 13–20; TEMP 36.6–37.1; O2SAT 96–98; BMI 34.5
--- NOTE | 2024-11-16 04:11 | PC.NURSE ---
Pt was a direct admit from [facility] ED for NSTEMI and CHF Exacerbation. Pt is A&Ox4. Pt is on RA. Pt has 3+ pitting edema in BLE that is weeping. Pt has had 1650 ml of UOP since arrival. Pt has expiratory rhonchi bilaterally throughout lungs. Pt has been Afib with Bradycardia and a BBB on telemetry. Pt has not voiced any concerns at this time. Pt is resting in bed, call light is within reach. Plan of care ongoing.
--- NOTE | 2024-11-16 05:21 | CA_ITS ---
APPROVED REPORT EXAM: Comprehensive 2D, Doppler, and color-flow Echocardiogram Industrial Economics Professor: Elis Emmanuel RT(R) Ht: 5 ft 10 in Wt: 241lbs BSA: 2.26 BP: 142/79 mmHg Indications: NSTEMI, elevated troponins. 2D Dimensions EF AP2 42.4 % GL Strain -16.1 % M-Mode Dimensions RVDd 2.54 cm (0.9-2.6) LA Diam 4.22 cm (1.9-4.0) LVDd 5.71 cm (3.5-5.7) LVDs 4.92 cm (3.5-5.7) IVSd 1.33 cm (0.6-1.1) PWd 0.58 cm (0.6-1.1) EF (Teich) 29.10% FS 13.80% EDV (Teich) 160.70 mL ESV (Teich) 113.90 mL Aortic Valve LOREN Index 1.23 cm2/m2 AoV Peak Steve. 132.0 (50-130 cm/s) AO Peak GR. 6.90 mmHg AO Mean GR. 3.50 (<5 mmHg) AO VTI 27.9 (18-25 cm) LOREN (VTI) 2.85 (2.5-4.5 cm2) Left Ventricle The left ventricle is normal size. The left ventricular systolic function is low-normal. There is increased LV wall thickness. The septum is asynchronous. Diastolic function is indeterminate. LVEF is 50%. Right Ventricle Right ventricle is mildly dilated. The right ventricular systolic function is normal. Atria Left atrium is moderately dilated. Right atrium is moderately dilated. There is no Doppler evidence of interatrial shunt. Aortic Valve The aortic valve is mildly thickened. There is no aortic valvular stenosis. Mild aortic regurgitation. Mitral Valve The mitral valve is normal in structure. No evidence of mitral valve stenosis. Mild mitral regurgitation. Tricuspid Valve Tricuspid valve is grossly normal in structure and function. Trace tricuspid regurgitation. There is insufficient TR jet to estimate RVSP. Pulmonic Valve The pulmonary valve is normal in structure. Mild pulmonic regurgitation. Great Vessels The aortic root is normal in size. IVC is normal in size and collapses >50% with inspiration. Pericardium There is no pericardial effusion. Other Information Study Quality: Fair Conclusion Low-normal LV systolic function (LVEF 50%). Mild RV dilation with normal RV function. Biatrial dilation. Mild AI, mild MR, mild PI. Electronically signed by : Gail Dumont MD 11/16/2024 13:25:26
[2024-11-16] MEDS: FUROSEMIDE 20 MG/2 ML VIAL IV (05:56)
[2024-11-16 06:11] LABS: NT Pro Brain Natriuretic Pep. 8700 pg/mL (0-450)
--- NOTE | 2024-11-16 08:01 | HMH.PHAINT1 ---
Pharmacy Intervention Comments: MEDICATION RECONCILIATION COMPLETED ON PATIENT USING EXTERNAL FILL HISTORY FROM PHARMACY. -RENZO GREGORY, GREGD
[2024-11-16 08:15] LABS: NT Pro Brain Natriuretic Pep. 8510 pg/mL (0-450)
[2024-11-16] MEDS: DULOXETINE 30MG CAPSULE.DR 60 MG PO (08:16)
[2024-11-16] MEDS: HEPARIN SODIUM 5,000 UNIT/ML VIAL 5000 UNIT SUBCUT ×3 (08:16→20:28)
[2024-11-16] MEDS: PREGABALIN 100MG CAPSULE 200 MG PO ×2 (08:16→20:28)
[2024-11-16 08:48] LABS: Troponin I 0.08 ng/ml (0.00-0.034)
[2024-11-16 08:59] LABS: Hemoglobin A1C 5.6 % (4.0-6.0)
--- NOTE | 2024-11-16 10:14 | ECG_ITS ---
APPROVED REPORT Exam: Resting ECG HR:64 bpm ECG Measurements Heart Rate 64 AXES QRSd 162 QRS -73 QT 488 T 104 QTc 497 Conclusion ATRIAL FIBRILLATION WITH ABERRANT CONDUCTION OR VENTRICULAR PREMATURE COMPLEXES LEFT AXIS DEVIATION [QRS AXIS < -30] LEFT BUNDLE BRANCH BLOCK [120+ ms QRS DURATION, 80+ ms Q/S IN V1/V2, 85+ ms R IN I/aVL/V5/V6] ABNORMAL ECG UNCONFIRMED REPORT Electronically signed by : Alejo Gordillo MD 11/17/2024 12:48:43
[2024-11-16] MEDS: FUROSEMIDE 100MG/10ML VIAL 80 MG IV ×2 (11:19→17:01)
--- NOTE | 2024-11-16 12:10 | EXP.CARD.CON ---
History of Present Illness History of Present Illness Consult date: 11/16/24 Chief complaint: Shortness of breath and lower extremity edema History of present illness: 79-year-old white male with history of CAD status post CABG approximately 7 years ago as well as congestive heart failure and atrial fibrillation. He does not take medications for any of these conditions. States he sees a greenkeeper occasionally in [facility] but refuses medication. states he occasionally takes Lasix but often even refuses to take that. Patient presents with several weeks of worsening shortness of breath and severe lower extremity edema associated with orthopnea. In the emergency room here his EKG reveals atrial fibrillation with frequent ventricular ectopy, left bundle branch block, troponin peaked at 0.09 then trended down, proBNP 8700, chest x-ray consistent with congestive heart failure. [facility] Disclaimer: The information contained in this section may have been updated after the patient was seen, as this information can be updated by other users. Medical History (Updated 11/16/24 @ 12:16 by ROSHAN Louise) Kyphosis Osteoarthritis BPH (benign prostatic hyperplasia) Osteopenia DDD (degenerative disc disease) Peripheral neuropathy Chronic pain syndrome Anxiety Obesity HTN (hypertension) HLD (hyperlipidemia) Aneurysm History of alcohol abuse History of substance abuse Hypertension Neuropathy Surgical History Hx of cervical spinal arthrodesis S/p total knee replacement, bilateral History of heart bypass surgery Family History Other Cancer Social History (Updated 11/15/24 @ 23:21 by Lauren Mccabe RN) Smoking Status: Current every day smoker tobacco type: cigarettes packs per day: 1 alcohol intake: never current occupational status: other Travel in the last 8 weeks?: None household members: spouse housing: house current occupational exposures/hazards: No caffeine: Yes Have you lived/traveled outside [place] in past 30 days?: No Contact w/someone who lives/traveled outside [place] past 30 days?: No Exposure to someone with infectious disease in past 14 days?: No Do you have a fever (greater than 100.4 F or 38 C)?: No Have you tested positive for COVID-19?: No Exposed to someone with COVID-19 in past 14 days?: No Do you have a sore throat?: No Do you have a cough?: No Do you have any weakness?: No Do you have any diarrhea?: No Are you experiencing any unusual bleeding?: No Do you have any muscle aches/pain?: No Do you have any abdominal pain?: No Are you experiencing loss of taste or smell?: No Review of Systems Constitutional Constitutional: Denies fatigue and Reports weakness Eyes Eyes: Denies loss of vision ENT Ears, Nose, Mouth, and Throat: Denies hearing loss and Denies vertigo *Cardiovascular Cardiovascular: Reports dyspnea, Reports dyspnea on exertion, Reports edema and Denies syncope *Respiratory Respiratory: Denies cough, Reports dyspnea and Reports dyspnea on exertion *Gastrointestinal Gastrointestinal: Denies change in stool character, Denies nausea and Denies vomiting *Genitourinary Genitourinary: Denies difficulty urinating *Musculoskeletal Musculoskeletal: Denies muscle weakness Integumentary/Breasts Skin/Breast: Denies changing lesions *Neurologic Neurologic: Denies loss of vision, Denies syncope, Denies vertigo and Reports weakness Endocrine Endocrine: Denies fatigue Exam Data for Last 24 hours Vital signs and Labs for Last 24 Hours: Temp Pulse Resp BP Pulse Ox O2 Del Method O2 Flow Rate 98.1 F 74 18 144/76 H 97 Room Air 2 11/16/24 08:00 11/16/24 08:00 11/16/24 08:00 11/16/24 08:00 11/16/24 08:00 11/16/24 09:00 11/15/24 22:35 Laboratory Results - last 24 hr 11/15/24 23:00: WBC 9.7, RBC 4.56 L, Hgb 12.4 L, Hct 38.1 L, MCV 83.6, MCH 27.2, MCHC 32.5, RDW 18.5 H, Plt Count 162, MPV 11.3 H, Neut % (Auto) 75.3, Lymph % (Auto) 11.6, Jennings % (Auto) 8.0, Eos % (Auto) 3.4, Baso % (Auto) 0.9, Neut # (Auto) 7.3, Lymph # (Auto) 1.1, Jennings # (Auto) 0.8, Eos # (Auto) 0.3, Baso # (Auto) 0.1, PT 12.3, INR 1.12 H, Sodium 139, Potassium 3.4 L, Chloride 104, Carbon Dioxide 31 H, Anion Gap 7.4, BUN 32 H, Creatinine 1.10, Estimated GFR 64, Est GFR ( Amer) 78, Glucose 103 H, Lactate 1.0, Calcium 10.1, Magnesium 1.8, Total Bilirubin 0.8, AST 38, ALT 27, Alkaline Phosphatase 149 H, Troponin I 0.09 H, NT-Pro-B Natriuret Pep 8700 H, Total Protein 6.6, Albumin 3.6, Globulin 3.0, Albumin/Globulin Ratio 1.2, Triglycerides 64, Cholesterol 139 L, LDL Cholesterol Direct 87.93 L, VLDL Cholesterol 13, HDL Cholesterol 27 L, Cholesterol/HDL Ratio 5.1 H 11/16/24 07:25: Hemoglobin A1c 5.6, Troponin I 0.08 H, NT-Pro-B Natriuret Pep 8510 H I & O for Last 24 hours: Intake & Output 11/13/24 11/14/24 11/15/24 11/16/24 23:59 23:59 23:59 23:59 Intake Total 360 / 360 Output Total 1150 / 1150 1100 / 1100 Balance -1150 / -1150 -740 / -740 Weight 241 lb 11.2 oz Constitutional Constitutional: no acute distress and cooperative *Routine HEENT Exam Eye: Present PERRL *Routine Respiratory Exam Respiratory: Present CTA bilaterally; Absent accessory muscle use, wheezes or crackles *Routine Cardiovascular Exam Cardiovascular: Present RRR, Normal S1 and Normal S2; Absent murmur, gallop or rubs *Routine Abdominal Exam Abdominal: Present soft; Absent tenderness *Routine Extremities Exam Extremities: Present edema and pulses intact; Absent cyanosis Comments: Severe bilateral lower extremity edema with erythema noted thigh-high *Routine Skin Exam Skin: Present intact; Absent erythema or wounds *Routine Neurological Exam Neurological: Present alert and oriented X3 Routine Psychiatric Exam Psychiatric: Present cooperative Meds Home Medications and Allergies Home Medications ?Medication ?Instructions ?Recorded ?Confirmed ?Type duloxetine 60 mg capsule,delayed 60 mg PO DAILY 02/09/22 11/16/24 History release furosemide 40 mg tablet 40 mg PO DAILY 02/09/22 11/15/24 History pregabalin 200 mg capsule 200 mg PO BID 02/09/22 11/16/24 History albuterol sulfate 90 mcg/actuation 2 puff inhalation Q4HP PRN 11/16/24 11/16/24 History aerosol inhaler Shortness Of Breath fluticasone 250 mcg-salmeterol 50 1 inh inhalation BID 11/16/24 11/16/24 History mcg/dose blistr powdr for inhalation ([facility]) New Prescriptions to Start Prescriptions: Allergies Allergy/AdvReac Type Severity Reaction Status Date / Time No Known Allergies Allergy Verified 01/14/23 10:45 Assessment and Plan *Assessment and plan (1) Acute on chronic left systolic heart failure: Status: Acute Category: Medical Code(s): I50.23 - Acute on chronic systolic (congestive) heart failure (2) NSTEMI (non-ST elevated myocardial infarction): Status: Acute Category: Medical Code(s): I21.4 - Non-ST elevation (NSTEMI) myocardial infarction (3) Paroxysmal atrial fibrillation: Status: Acute Category: Medical Code(s): I48.0 - Paroxysmal atrial fibrillation (4) PVCs (premature ventricular contractions): Status: Acute Category: Medical Code(s): I49.3 - Ventricular premature depolarization (5) Left bundle branch block: Status: Acute Category: Medical Code(s): I44.7 - Left bundle-branch block, unspecified (6) Noncompliance with medication regimen: Status: Acute Category: Medical Code(s): Z91.148 - Patient's other noncompliance with medication regimen for other reason Plan Acute on chronic left systolic heart failure - Unknown duration, reports history of CHF but details are unclear - Presented here with severe peripheral and pulmonary edema, proBNP 8000 - Check 2D echo - Start Lasix 80 mg twice daily - Strict I/O - Start beta-juani and ARB, SGLT2 later NSTEMI - Acute congestive heart failure with elevated troponin, left bundle branch block, ventricular ectopy - Patient denies anginal chest pains at this time and is in no distress - Continue heparin, add aspirin, beta-juani, statin - Plan for left heart cath on Tuesday after diuresis this Atrial fibrillation - Not on OAC or rate control at home - Add beta-juani here - Continue heparin PVC - Frequent ventricular ectopy noted on EKG - Continue telemetry monitoring - Add beta-juani - Consider addition of amnio Nonadherence to treatment - Despite patient's numerous diagnoses and symptoms he does not take medications at home - This was discussed with him in detail, if he wants to live he will need to comply with medication regimen, he is agreeable *Will add GDMT, diuresis over the weekend, plan for left heart cath Tuesday. 2D echo is pending.
--- OUTSIDE RECORDS SUMMARY | 2024-11-16 13:07 | XMS_ITS | Data Portability ---
Author Organization [facility] TREVON Martinez ADMIN Address [address] [place] [id number] Assessment No assessment recorded. Plan of Treatment Reminders Order Date Submit Date Provider Last Modified By Organization Details Last Modified Time Details Appointments AWV 30 2024 10:00A Viki Mendoza MD Not available Not available Not available Medicare Annual Wellness 30min 2024 08:30A M Raphael Mendoza MD Not available Not available Not available Lab PSA, total, serum or plasma 2023 024 [facility], [address], [address], [place], [address], 12/15/2023 08:23:59 CMP, serum or plasma 2023 024 [facility], [address], [address], [place], [address], 12/15/2023 08:23:57 lipid panel, serum 2023 024 [facility], [address], [address], [place], [address], 12/15/2023 08:23:57 CBC w/ auto diff 2023 024 [facility], [address], [address], [place], [address], 12/15/2023 08:23:56 thyroid panel, serum 2023 024 [facility], [address], [address], [place], [address], 12/15/2023 08:23:58 CMP, serum or plasma 2022 023 [facility], [address], [address], [place], [address], 12/01/2022 04:09:02 PSA, total, serum or plasma 2022 023 [facility], [address], [address], [place], [address], 12/01/2022 04:09:03 CBC w/ auto diff 2022 023 [facility], [address], [address], [place], [address], 12/01/2022 04:09:00 CMP, serum or plasma 2022 023 [email or web address] [facility], [address], [address], [place], [address], 12/08/2022 10:12:09 lipid panel, serum 2022 023 [facility], [address], [address], [place], [address], 12/01/2022 04:09:02 vitamin B12 + folate, serum or blood 2021 022 [facility], [address], [address], [place], [address], 03/24/2022 08:20:24 Referral None recorded. Procedures None recorded. Surgeries None recorded. Imaging pharmacol ogic nuclear stress test 2023 024 [email or web address] [facility], [address], [place], [address], 03/28/2024 11:57:47 LDCT, chest, for lung cancer screening 2022 023 [email or web address] [facility] [place] (Centralized Scheduling), [address], [place], [address], 01/26/2023 16:58:12 Medication Orders Lasix 40 mg tablet 2023 024 [facility], [address] [place] [address], [address], 12/06/2023 10:04:25 potassium chloride ER 10 mEq tablet,ex tended release 2023 024 [facility], [address] [place] [address], [address], 12/06/2023 10:04:26 Xarelto 20 mg tablet 2023 024 [facility], [address] [place] [address], [address], 12/06/2023 10:04:24 Advair Diskus 250 mcg-50 mcg/dose powder for inhalatio n 2023 024 [facility], [address] [place] [address], [address], 12/06/2023 10:04:29 Wixela Inhub 100 mcg-50 mcg/dose powder for inhalatio n 2023 024 [facility], [address] [place] [address], [address], 12/14/2023 10:11:45 duloxetin e 60 mg capsule,d elayed release 2023 024 [facility], [address] [place] [address], [id number], 12/06/2023 09:10:56 triamcino lone acetonide 0.1 % topical ointment [email or web address]/[facility], [address] [place] [address], [address], 10/14/2023 11:11:19 ketoconaz ole 200 mg tablet [address]/Pharmacy #2332, [address] [place] [address], [address], 11/30/2022 10:16:25 Ozempic 0.25 mg or 0.5 mg (2 mg/1.5 mL) subcutane ous pen injector [email or web address]/[facility], [address] [place] [address], [id number], 11/30/2022 10:16:04 Patient TargetsNo targets recorded. Patient Instructions Encounter Date Encounter Id Patient Instructions Last Modified By Organization Details Last Modified Time 11/30/2022 [id number] advance directives: care instructions [email or web address] Not available 11/30/2022 11:20:29 Health Maintenance Recommendations: (5-10 year screening/prevent ion plan) [email or web address] Not available 11/30/2022 10:13:54 12/14/2023 [id number] advance directives: care instructions [email or web address] Not available 12/14/2023 10:23:41 Health Maintenance Recommendations: (5-10 year screening/prevent ion plan) [email or web address] Not available 12/14/2023 09:54:18 Reason for Referral None Reported. Results Created Date Observation Date Name Description Value Unit Range Abnormal Flag Note LastModifiedBy Organization Detail LastModifiedTime 03/23/2003/24/2022 VITAM IN B12 AND FOLAT E vitamin B12 609 pg/mL 232-12 45 Not Available [facility] ([facility]) [address] [facility], [place], [address], 03/24/2022 08:20:24 03/23/2003/24/2022 VITAM IN B12 AND FOLAT E folate (folic acid), serum 19.8 NG/mL >3.0 A serum folat e vicki ntrat ion of less than 3.1 ng/mL is consi dered to repre sent clini cade defic iency . Not Available [facility] ([facility]) [address] [place], [address], 03/24/2022 08:20:24 12/01/1912/01/2022 CBC WITH DIFFE RENTI AL/PL ATELE T WBC 7.6 x10e3 /uL 3.4-10 .8 Not Available [facility] ([facility]) [address] [place], [address], 12/01/2022 04:09:00 12/01/19 23 12/01/2022 CBC WITH DIFFE RENTI AL/PL ATELE T RBC 4.72 x10e6 /uL 4.14-5 .80 Not Available [facility] ([facility]) [address] [place], [address], 12/01/2022 04:09:00 12/01/1912/01/2022 CBC WITH DIFFE RENTI AL/PL ATELE T hemoglobin 13.8 g/dL 13.0-1 7.7 Not Available [facility] ([facility]) [address] [place], [address], 12/01/2022 04:09:00 12/01/19 23 12/01/2022 CBC WITH DIFFE RENTI AL/PL ATELE T hematocrit 41.5 % 37.5-5 1.0 Not Available [facility] ([facility]) [address] [place], [address], 12/01/2022 04:09:00 12/01/19 23 12/01/2022 CBC WITH DIFFE RENTI AL/PL ATELE T MCV 88 fL 79-97 Not Available [facility] ([facility]) [address] [place], [address], 12/01/2022 04:09:00 12/01/19 23 12/01/2022 CBC WITH DIFFE RENTI AL/PL ATELE T MCH 29.2 pg 26.6-3 3.0 Not Available [facility] ([facility]) [address] [facility], [place], [address], 12/01/2022 04:09:00 12/01/19 23 12/01/2022 CBC WITH DIFFE RENTI AL/PL ATELE T MCHC 33.3 g/dL 31.5-3 5.7 Not Available [facility] ([facility]) [address] [facility], [place], [address], 12/01/2022 04:09:00 12/01/19 23 12/01/2022 CBC WITH DIFFE RENTI AL/PL ATELE T RDW 14.0 % 11.6-1 5.4 Not Available [facility] ([facility]) [address] [facility], [place], [address], 12/01/2022 04:09:00 12/01/1912/01/2022 CBC WITH DIFFE RENTI AL/PL ATELE T platelets 176 x10e3 /uL 150-45 0 Not Available [facility] ([facility]) [address] [place], [address], 12/01/2022 04:09:00 12/01/19 23 12/01/2022 CBC WITH DIFFE RENTI AL/PL ATELE T neutrophils 64 % not estab. Not Available [facility] ([facility]) [address] [place], [address], 12/01/2022 04:09:00 12/01/19 23 12/01/2022 CBC WITH DIFFE RENTI AL/PL ATELE T lymphs 20 % not estab. Not Available [facility] ([facility]) [address] [place], [address], 12/01/2022 04:09:00 12/01/19 23 12/01/2022 CBC WITH DIFFE RENTI AL/PL ATELE T monocytes 8 % not estab. Not Available [facility] ([facility]) [address] [place], [address], 12/01/2022 04:09:00 12/01/19 23 12/01/2022 CBC WITH DIFFE RENTI AL/PL ATELE T eos 7 % not estab. Not Available [facility] ([facility]) [address] [facility], [place], [address], 12/01/2022 04:09:00 12/01/1912/01/2022 CBC WITH DIFFE RENTI AL/PL ATELE T basos 1 % not estab. Not Available [facility] ([facility]) [address] [place], [address], 12/01/2022 04:09:00 12/01/19 23 12/01/2022 CBC WITH DIFFE RENTI AL/PL ATELE T immature cells SIDE GUIDER Not Available [facility] ([facility]) [address] [place], [address], 12/01/2022 04:09:00 12/01/1912/01/2022 CBC WITH DIFFE RENTI AL/PL ATELE T neutrophils (absolute) 4.9 x10e3 /uL 1.4-7. 0 Not Available [facility] ([facility]) [address] [place], [address], 12/01/2022 04:09:00 12/01/1912/01/2022 CBC WITH DIFFE RENTI AL/PL ATELE T lymphs (absolute) 1.5 x10e3 /uL 0.7-3. 1 Not Available [facility] ([facility]) [address] [place], [address], 12/01/2022 04:09:00 12/01/19 23 12/01/2022 CBC WITH DIFFE RENTI AL/PL ATELE T monocytes(ab solute) 0.6 x10e3 /uL 0.1-0. 9 Not Available [facility] ([facility]) [address] [facility], [place], [address], 12/01/2022 04:09:00 12/01/19 23 12/01/2022 CBC WITH DIFFE RENTI AL/PL ATELE T eos (absolute) 0.5 x10e3 /uL 0.0-0. 4 above high normal Not Available [facility] ([facility]) [address] [facility], [place], [address], 12/01/2022 04:09:00 12/01/19 23 12/01/2022 CBC WITH DIFFE RENTI AL/PL ATELE T baso (absolute) 0.1 x10e3 /uL 0.0-0. 2 Not Available [facility] ([facility]) [address] [facility], [place], [address], 12/01/2022 04:09:00 12/01/19 23 12/01/2022 CBC WITH DIFFE RENTI AL/PL ATELE T immature granulocytes 0 % not estab. Not Available [facility] ([facility]) [address] [facility], [place], [address], 12/01/2022 04:09:00 12/01/1912/01/2022 CBC WITH DIFFE RENTI AL/PL ATELE T immature grans (abs) 0.0 x10e3 /uL 0.0-0. 1 Not Available [facility] ([facility]) [address] [facility], [place], [address], 12/01/2022 04:09:00 12/01/19 23 12/01/2022 CBC WITH DIFFE RENTI AL/PL ATELE T NRBC SIDE GUIDER Not Available [facility] ([facility]) [address] [facility], [place], [address], 12/01/2022 04:09:00 12/01/19 23 12/01/2022 CBC WITH DIFFE RENTI AL/PL ATELE T hematology comments: SIDE GUIDER Not Available [facility] ([facility]) [address] [facility], [place], [address], 12/01/2022 04:09:00 12/01/19 23 12/01/2022 COMP. METAB OLIC PANEL (14) glucose 99 mg/dL 70-99 Not Available [facility] ([facility]) [address] [facility], [place], [address], 12/01/2022 04:09:02 12/01/19 23 12/01/2022 COMP. METAB OLIC PANEL (14) BUN 13 mg/dL 8-27 Not Available [facility] ([facility]) [address] [facility], [place], [address], 12/01/2022 04:09:02 12/01/19 23 12/01/2022 COMP. METAB OLIC PANEL (14) creatinine 1.07 mg/dL 0.76-1 .27 Not Available [facility] ([facility]) [address] [place], [address], 12/01/2022 04:09:02 12/01/19 23 12/01/2022 COMP. METAB OLIC PANEL (14) eGFR 71 mL/mi n/1.7 3 >59 Not Available [facility] ([facility]) [address] [place], [address], 12/01/2022 04:09:02 12/01/19 23 12/01/2022 COMP. METAB OLIC PANEL (14) BUN/creatini ne ratio 12 10-24 Not Available [facility] ([facility]) [address] [place], [address], 12/01/2022 04:09:02 12/01/19 23 12/01/2022 COMP. METAB OLIC PANEL (14) sodium 138 mmol/ L 134-14 4 Not Available [facility] ([facility]) [address] [place], [address], 12/01/2022 04:09:02 12/01/19 23 12/01/2022 COMP. METAB OLIC PANEL (14) potassium 4.3 mmol/ L 3.5-5. 2 Not Available [facility] ([facility]) [address] [place], [address], 12/01/2022 04:09:02 12/01/19 23 12/01/2022 COMP. METAB OLIC PANEL (14) chloride 102 mmol/ L 96-106 Not Available [facility] ([facility]) [address] [place], [address], 12/01/2022 04:09:02 12/01/19 23 12/01/2022 COMP. METAB OLIC PANEL (14) carbon dioxide, total 24 mmol/ L 20-29 Not Available [facility] ([facility]) [address] [place], [address], 12/01/2022 04:09:02 12/01/19 23 12/01/2022 COMP. METAB OLIC PANEL (14) calcium 9.2 mg/dL 8.6-10 .2 Not Available [facility] ([facility]) [address] [place], [address], 12/01/2022 04:09:02 12/01/19 23 12/01/2022 COMP. METAB OLIC PANEL (14) protein, total 7.0 g/dL 6.0-8. 5 Not Available [facility] ([facility]) [address] [place], [address], 12/01/2022 04:09:02 12/01/19 23 12/01/2022 COMP. METAB OLIC PANEL (14) albumin 3.8 g/dL 3.7-4. 7 Eff ectiv e December 13, 2022 Album in refer ence inter vincenzo will be duggan ing to: Age Male Femal e 0 - 7 days 3.6 - 4.9 3.6 - 4.9 8 - 30 days 3.5 - 4.6 3.5 - 4.6 1 - 6 month s 3.7 - 4.8 3.7 - 4.8 7 month s - 2 years 4.0 - 5.0 4.0 - 5.0 3 - 5 years 4.1 - 5.0 4.1 - 5.0 6 - 12 years 4.2 - 5.0 4.2 - 5.0 13 - 30 years 4.3 - 5.2 4.0 - 5.0 31 - 50 years 4.1 - 5.1 3.9 - 4.9 51 - 60 years 3.8 - 4.9 3.8 - 4.9 61 - 70 years 3.9 - 4.9 3.9 - 4.9 71 - 80 years 3.8 - 4.8 3.8 - 4.8 81 - 89 years 3.7 - 4.7 3.7 - 4.7 90 - 199 years 3.6 - 4.6 3.6 - 4.6 Not Available [facility] ([facility]) [address] [place], [address], 12/01/2022 04:09:02 12/01/19 23 12/01/2022 COMP. METAB OLIC PANEL (14) globulin, total 3.2 g/dL 1.5-4. 5 Not Available [facility] ([facility]) [address] [place], [address], 12/01/2022 04:09:02 12/01/19 23 12/01/2022 COMP. METAB OLIC PANEL (14) A/G ratio 1.2 1.2-2. 2 Not Available [facility] ([facility]) [address] [place], [address], 12/01/2022 04:09:02 12/01/19 23 12/01/2022 COMP. METAB OLIC PANEL (14) bilirubin, total 0.4 mg/dL 0.0-1. 2 Not Available [facility] ([facility]) [address] [place], [address], 12/01/2022 04:09:02 12/01/19 23 12/01/2022 COMP. METAB OLIC PANEL (14) alkaline phosphatase 116 IU/L 44-121 Not Available [facility]) [address] [place], [address], 12/01/2022 04:09:02 12/01/19 23 12/01/2022 COMP. METAB OLIC PANEL (14) AST (SGOT) 17 IU/L 0-40 Not Available [facility] ([facility]) [address] [place], [address], 12/01/2022 04:09:02 12/01/19 23 12/01/2022 COMP. METAB OLIC PANEL (14) ALT (SGPT) 7 IU/L 0-44 Not Available [facility] ([facility]) [address] [facility], [place], [address], 12/01/2022 04:09:02 12/01/19 23 12/01/2022 LIPID PANEL cholesterol, total 143 mg/dL 100-19 9 Not Available [facility] ([facility]) [address] [place], [address], 12/01/2022 04:09:02 12/01/19 23 12/01/2022 LIPID PANEL triglyceride s 110 mg/dL 0-149 Not Available [facility] ([facility]) [address] [place], [address], 12/01/2022 04:09:02 12/01/19 23 12/01/2022 LIPID PANEL HDL cholesterol 24 mg/dL >39 below low normal Not Available [facility] ([facility]) [address] [place], [address], 12/01/2022 04:09:02 06/27/12/01/2022 LIPID PANEL VLDL cholesterol cade 21 mg/dL 5-40 Not Available [facility] ([facility]) [address] [facility], [place], [address], 12/01/2022 04:09:02 12/01/19 23 12/01/2022 LIPID PANEL LDL chol calc ([facility]) 98 mg/dL 0-99 Not Available [facility]) [address] [facility], [place], [address], 12/01/2022 04:09:02 12/01/19 23 12/01/2022 LIPID PANEL comment: SIDE GUIDER Not Available [facility] ([facility]) [address] [facility], [place], [address], 12/01/2022 04:09:02 12/01/19 23 12/01/2022 PROST ATE-S PECIF IC AG prostate specific Ag 2.2 NG/mL 0.0-4. 0 Karen ECLIA metho dolog y. Accor ding to the Ameri can [employer] i[employer] n, Serum PSA shoul d decre ase and remai n at undet ectab le level s after radic al prost atect nirmala. The AUA defin es bioch emica l recur rence as an initi al PSA value 0.2 ng/mL or great er follo wed by a subse quent confi rmato ry PSA value 0.2 ng/mL or great er. Value s obtai nadia with diffe rent assay metho ds or kits canno t be used inter duggan eably . Resul ts canno t be inter prete d as absol mynor evide nce of the prese nce or absen ce of david hayes se. Not Available [facility] ([facility]) [address] [facility], [place], [address], 12/01/2022 04:09:03 12/14/19 24 12/15/2023 CBC WITH DIFFE RENTI AL/PL ATELE T WBC 8.1 x10e3 /uL 3.4-10 .8 Not Available [facility] ([facility]) [address] [facility], [place], [address], 12/15/2023 08:23:56 12/14/19 24 12/15/2023 CBC WITH DIFFE RENTI AL/PL ATELE T RBC 5.01 x10e6 /uL 4.14-5 .80 Not Available [facility] ([facility]) [address] [facility], [place], [address], 12/15/2023 08:23:56 12/14/19 24 12/15/2023 CBC WITH DIFFE RENTI AL/PL ATELE T hemoglobin 14.3 g/dL 13.0-1 7.7 Not Available [facility] ([facility]) [address] [facility], [place], [address], 12/15/2023 08:23:56 12/14/19 24 12/15/2023 CBC WITH DIFFE RENTI AL/PL ATELE T hematocrit 44.1 % 37.5-5 1.0 Not Available [facility] ([facility]) [address] [place], [address], 12/15/2023 08:23:56 12/14/19 24 12/15/2023 CBC WITH DIFFE RENTI AL/PL ATELE T MCV 88 fL 79-97 Not Available [facility] ([facility]) [address] [place], [address], 12/15/2023 08:23:56 12/14/19 24 12/15/2023 CBC WITH DIFFE RENTI AL/PL ATELE T MCH 28.5 pg 26.6-3 3.0 Not Available [facility] ([facility]) [address] [place], [address], 12/15/2023 08:23:56 12/14/19 24 12/15/2023 CBC WITH DIFFE RENTI AL/PL ATELE T MCHC 32.4 g/dL 31.5-3 5.7 Not Available [facility] ([facility]) [address] [facility], [place], [address], 12/15/2023 08:23:56 12/14/19 24 12/15/2023 CBC WITH DIFFE RENTI AL/PL ATELE T RDW 13.8 % 11.6-1 5.4 Not Available [facility] ([facility]) [address] [facility], [place], [address], 12/15/2023 08:23:56 12/14/19 24 12/15/2023 CBC WITH DIFFE RENTI AL/PL ATELE T platelets 192 x10e3 /uL 150-45 0 Not Available [facility] ([facility]) [address] [facility], [place], [address], 12/15/2023 08:23:56 12/14/19 24 12/15/2023 CBC WITH DIFFE RENTI AL/PL ATELE T neutrophils 67 % not estab. Not Available [facility] ([facility]) [address] [facility], [place], [address], 12/15/2023 08:23:56 12/14/19 24 12/15/2023 CBC WITH DIFFE RENTI AL/PL ATELE T lymphs 19 % not estab. Not Available [facility] ([facility]) [address] [facility], [place], [address], 12/15/2023 08:23:56 12/14/19 24 12/15/2023 CBC WITH DIFFE RENTI AL/PL ATELE T monocytes 7 % not estab. Not Available [facility] ([facility]) [address] [facility], [place], [address], 12/15/2023 08:23:56 12/14/19 24 12/15/2023 CBC WITH DIFFE RENTI AL/PL ATELE T eos 6 % not estab. Not Available [facility] ([facility]) [address] [facility], [place], [address], 12/15/2023 08:23:56 12/14/19 24 12/15/2023 CBC WITH DIFFE RENTI AL/PL ATELE T basos 1 % not estab. Not Available [facility] ([facility]) [address] [place], [address], 12/15/2023 08:23:56 12/14/19 24 12/15/2023 CBC WITH DIFFE RENTI AL/PL ATELE T immature cells SIDE GUIDER Not Available [facility] ([facility]) [address] [place], [address], 12/15/2023 08:23:56 12/14/19 24 12/15/2023 CBC WITH DIFFE RENTI AL/PL ATELE T neutrophils (absolute) 5.3 x10e3 /uL 1.4-7. 0 Not Available [facility] ([facility]) [address] [place], [address], 12/15/2023 08:23:56 12/14/19 24 12/15/2023 CBC WITH DIFFE RENTI AL/PL ATELE T lymphs (absolute) 1.6 x10e3 /uL 0.7-3. 1 Not Available [facility] ([facility]) [address] [place], [address], 12/15/2023 08:23:56 12/14/19 24 12/15/2023 CBC WITH DIFFE RENTI AL/PL ATELE T monocytes(ab solute) 0.6 x10e3 /uL 0.1-0. 9 Not Available [facility] ([facility]) [address] [place], [address], 12/15/2023 08:23:56 12/14/19 24 12/15/2023 CBC WITH DIFFE RENTI AL/PL ATELE T eos (absolute) 0.5 x10e3 /uL 0.0-0. 4 above high normal Not Available [facility] ([facility]) [address] [place], [address], 12/15/2023 08:23:56 12/14/19 24 12/15/2023 CBC WITH DIFFE RENTI AL/PL ATELE T baso (absolute) 0.1 x10e3 /uL 0.0-0. 2 Not Available [facility] ([facility]) [address] [facility], [place], [address], 12/15/2023 08:23:56 12/14/19 24 12/15/2023 CBC WITH DIFFE RENTI AL/PL ATELE T immature granulocytes 0 % not estab. Not Available [facility] ([facility]) [address] [facility], [place], [address], 12/15/2023 08:23:56 12/14/19 24 12/15/2023 CBC WITH DIFFE RENTI AL/PL ATELE T immature grans (abs) 0.0 x10e3 /uL 0.0-0. 1 Not Available [facility] ([facility]) [address] [facility], [place], [address], 12/15/2023 08:23:56 12/14/19 24 12/15/2023 CBC WITH DIFFE RENTI AL/PL ATELE T NRBC SIDE GUIDER Not Available [facility] ([facility]) [address] [facility], [place], [address], 12/15/2023 08:23:56 12/14/19 24 12/15/2023 CBC WITH DIFFE RENTI AL/PL ATELE T hematology comments: SIDE GUIDER Not Available [facility] ([facility]) [address] [facility], [place], [address], 12/15/2023 08:23:56 12/14/19 24 12/15/2023 COMP. METAB OLIC PANEL (14) glucose 99 mg/dL 70-99 Not Available [facility] ([facility]) [address] [facility], [place], [address], 12/15/2023 08:23:57 12/14/19 24 12/15/2023 COMP. METAB OLIC PANEL (14) BUN 23 mg/dL 8-27 Not Available [facility] ([facility]) [address] [facility], [place], [address], 12/15/2023 08:23:57 12/14/19 24 12/15/2023 COMP. METAB OLIC PANEL (14) creatinine 1.20 mg/dL 0.76-1 .27 Not Available [facility] ([facility]) [address] [facility], [place], [address], 12/15/2023 08:23:57 12/14/19 24 12/15/2023 COMP. METAB OLIC PANEL (14) eGFR 62 mL/mi n/1.7 3 >59 Not Available [facility] ([facility]) [address] [facility], [place], [address], 12/15/2023 08:23:57 12/14/19 24 12/15/2023 COMP. METAB OLIC PANEL (14) BUN/creatini ne ratio 19 10-24 Not Available [facility] ([facility]) [address] [facility], [place], [address], 12/15/2023 08:23:57 12/14/19 24 12/15/2023 COMP. METAB OLIC PANEL (14) sodium 139 mmol/ L 134-14 4 Not Available [facility] ([facility]) [address] [facility], [place], [address], 12/15/2023 08:23:57 12/14/19 24 12/15/2023 COMP. METAB OLIC PANEL (14) potassium 4.2 mmol/ L 3.5-5. 2 Not Available [facility] ([facility]) [address] [facility], [place], [address], 12/15/2023 08:23:57 12/14/19 24 12/15/2023 COMP. METAB OLIC PANEL (14) chloride 99 mmol/ L 96-106 Not Available [facility] ([facility]) [address] [place], [address], 12/15/2023 08:23:57 12/14/19 24 12/15/2023 COMP. METAB OLIC PANEL (14) carbon dioxide, total 22 mmol/ L 20-29 Not Available [facility] ([facility]) [address] [place], [address], 12/15/2023 08:23:57 12/14/19 24 12/15/2023 COMP. METAB OLIC PANEL (14) calcium 9.3 mg/dL 8.6-10 .2 Not Available [facility] ([facility]) [address] [place], [address], 12/15/2023 08:23:57 12/14/19 24 12/15/2023 COMP. METAB OLIC PANEL (14) protein, total 7.2 g/dL 6.0-8. 5 Not Available [facility] ([facility]) [address] [place], [address], 12/15/2023 08:23:57 12/14/19 24 12/15/2023 COMP. METAB OLIC PANEL (14) albumin 4.0 g/dL 3.8-4. 8 Not Available [facility] ([facility]) [address] [place], [address], 12/15/2023 08:23:57 12/14/19 24 12/15/2023 COMP. METAB OLIC PANEL (14) globulin, total 3.2 g/dL 1.5-4. 5 Not Available [facility] ([facility]) [address] [place], [address], 12/15/2023 08:23:57 12/14/19 24 12/15/2023 COMP. METAB OLIC PANEL (14) bilirubin, total 0.4 mg/dL 0.0-1. 2 Not Available [facility] ([facility]) [address] [place], [address], 12/15/2023 08:23:57 12/14/19 24 12/15/2023 COMP. METAB OLIC PANEL (14) alkaline phosphatase 120 IU/L 44-121 Not Available [facility] ([facility]) [address] [facility], [place], [address], 12/15/2023 08:23:57 12/14/19 24 12/15/2023 COMP. METAB OLIC PANEL (14) AST (SGOT) 16 IU/L 0-40 Not Available [facility] ([facility]) [address] [place], [address], 12/15/2023 08:23:57 12/14/19 24 12/15/2023 COMP. METAB OLIC PANEL (14) ALT (SGPT) 10 IU/L 0-44 Not Available [facility] ([facility]) [address], [place], [address], 12/15/2023 08:23:57 12/14/19 24 12/15/2023 LIPID PANEL cholesterol, total 142 mg/dL 100-19 9 Not Available [facility] ([facility]) [address] [facility], [place], [address], 12/15/2023 08:23:57 12/14/19 24 12/15/2023 LIPID PANEL triglyceride s 87 mg/dL 0-149 Not Available [facility] ([facility]) [address] [place], [address], 12/15/2023 08:23:57 12/14/19 24 12/15/2023 LIPID PANEL HDL cholesterol 30 mg/dL >39 below low normal Not Available [facility] ([facility]) [address] [place], [address], 12/15/2023 08:23:57 12/14/19 24 12/15/2023 LIPID PANEL VLDL cholesterol cade 17 mg/dL 5-40 Not Available [facility] ([facility]) [address] [place], [address], 12/15/2023 08:23:57 12/14/19 24 12/15/2023 LIPID PANEL LDL chol calc ([facility]) 95 mg/dL 0-99 Not Available [facility] ([facility]) [address] [place], [address], 12/15/2023 08:23:57 12/14/19 24 12/15/2023 LIPID PANEL LDL calc comment: SIDE GUIDER Not Available [facility] ([facility]) [address] [place], [address], 12/15/2023 08:23:57 12/14/19 24 12/15/2023 THYRO ID PANEL WITH TSH TSH 1.220 uIU/m L 0.450- 4.500 Not Available [facility] ([facility]) [address] [place], [address], 12/15/2023 08:23:58 12/14/19 24 12/15/2023 THYRO ID PANEL WITH TSH thyroxine (T4) 7.2 ug/dL 4.5-12 .0 Not Available [facility] ([facility]) [address] [place], [address], 12/15/2023 08:23:58 12/14/19 24 12/15/2023 THYRO ID PANEL WITH TSH T3 uptake 31 % 24-39 Not Available [facility] ([facility]) [address] [place], [address], 12/15/2023 08:23:58 12/14/19 24 12/15/2023 THYRO ID PANEL WITH TSH free thyroxine index 2.2 1.2-4. 9 Not Available [facility] ([facility]) [address] [place], [address], 12/15/2023 08:23:58 12/14/19 24 12/15/2023 PROST ATE-S PECIF IC AG prostate specific Ag 3.5 NG/mL 0.0-4. 0 Karen ECLIA metho dolog y. Accor wesley to the [employer]i can [employer] i[employer] n, Serum PSA shoul d decre ase and remai n at undet ectab le level s after radic al prost atect nirmala. The AUA defin es bioch emica l recur rence as an initi al PSA value 0.2 ng/mL or great er follo wed by a subse quent confi rmato ry PSA value 0.2 ng/mL or great er. Value s obtai nadia with diffe rent assay metho ds or kits canno t be used inter duggan eably . Resul ts canno t be inter prete d as absol mynor evide nce of the prese nce or absen ce of [facility] se. Not Available [facility] ([facility]) [address] [facility], [place], [address], 12/15/2023 08:23:59 04/06/20 22 04/05/2022 MRI, lumba r spine , w/o contr ast No observ ation record ed. [email or web address] [facility] [address], [place], [address], 04/06/2022 09:48:22 04/26/20 22 04/26/2022 MRI, brain , w/o contr ast No observ ation record ed. [email or web address] [facility] [address], [place], [address], 05/03/2022 08:24:44 11/25/19 23 10/31/2014 DEXA No observ ation record ed. [email or web address] Not Available 17:09:05 12/15/19 24 12/15/2023 elect jaime irizarry am No observ ation record ed. [facility] [place] [place] [facility] [address], [place], [address], 12/15/2023 16:23:03 12/15/19 24 12/06/2023 elect jaime irizarry am No observ ation record ed. [facility] [place] [place] [facility] [address], [place], [address], 12/15/2023 16:22:37 03/07/20 24 03/07/2024 XR, chest No observ ation record ed. [email or web address] [facility] (Radiology) [address] , [place], [address], 03/09/2024 11:18:01 Result Notes None recorded. Problems Name Problem SNOMED Code Status Onset Date Resolution Date Notes Provider Name and Address Organization Details Recorded Time Obesity 791977461 Active Bing Couch null, [place] - [facility] - [facility] & [place] 2 11:27:47 Degenerati on of lumbar interverte bral disc 40693064 Active Bing Couch [place], [place] [facility] [place] [facility] & [place] 2 11:27:47 Low back pain 148829601 Active 2011 Bing Couch null, [place] [facility] [place] [facility] & [place] 2 11:27:47 Neuropathy 007307425 Active Bing Couch [place], [place] [facility] [place] & [place] 2 11:27:47 Pruritic disorder 219415861 Active 2010 Bing Couch [place], [place] [facility] [place] & [place] 2 11:27:47 Benign essential hypertensi on 6490939 Active 2010 Bing Couch null, [place] [facility] [place] & [place] 2 11:27:47 First degree atrioventr icular block 012458320 Active Bing Couch null, [place] [facility] [place] & [place] 2 11:27:47 Chronic pain 14987031 Active Bing Couch null[place] [facility] [place] & [place] 2 11:27:47 Generalize d anxiety disorder 68928018 Active 2011 Bing Couch null[place] [facility] [place] & [place] 2 11:27:47 Long-term current use of drug therapy 853334891 Active Bing Vázquez null, [place] [facility] [place] & [place] 2 11:27:47 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 480901653 Active 2010 Bing Baronech null, [place] [facility] [place] & [place] 2 11:27:47 Contact dermatitis 63244336 Active 2011 Bing Couch [place] [facility] [place] & [place] 2 11:27:47 Coronary arterioscl erosis 14842478 Active Bing Baronech [place] [facility] [place] & [place] 2 11:27:47 Disorder of cardiovasc ular system 33586017 Active Bing Baronech null, [place] [facility] [place] & [place] 2 11:27:47 Acute bronchitis 64492692 Active Bign Baronech null[place] [facility] [place] & [place] 2 11:27:47 Hypertensi ve disorder 40106080 Active Bing Couch [place] [facility] [place] & [place] 2 11:27:47 Kyphosis of thoracic spine 381648824 Active Bing Baronech [place] [facility] [place] & [place] 2 11:27:47 Chronic pain syndrome 728151782 Active Bing Lizabethch null[place] [facility] [place] & [place] 2 11:27:47 Arthritis of right knee 9519828453261 102 Active Bing Couch [place] [facility] [place] & [place] 2 11:27:47 Coronary arterioscl erosis in [place] artery 4516116962552 Active Bing Couch [place] [facility] [place] [facility] [place] 2 11:27:47 Chronic obstructiv e pulmonary disease 47789647 Active 2011 Bing Couch [place] & [place] 2 11:27:47 Morbid obesity 780845567 Active Bing Couch [place] [facility] & [place] 2 11:27:48 Arthritis of left knee 5618535249875 104 Active Bing Couch [place] [facility] [place] & [place] 2 11:27:48 Tobacco dependence syndrome 99679507 Active Bing Couch [place] [facility] [place] & [place] 2 11:27:48 Eruption 292654597 Active 2010 Bing Couch [place] & [place] 2 11:27:48 Abnormal gait 11645796 Active Bing Couch [place] & [place] 2 11:27:48 Sinusitis 35861260 Active Bing Couch [place] & [place] 2 11:27:48 Osteopenia 996695088 Active Bing Couch [place] & [place] 2 11:27:48 Hereditary peripheral neuropathy 44326817 Active 2010 Bing Couch [place] 2 11:27:48 Hyperlipid emia 82867985 Active Bing Couch [place] & [place] 2 11:27:48 Injury of tendon 141760141 Active Bing Couch [place] & [place] 2 11:27:48 Aortic aneurysm 70636251 Active 2011 Bing Couch [place] [facility] 2 11:27:48 Cigarette smoker 86811430 Active [address], [place], [address] , [place] [facility] [place] & [place] 4 09:35:07 Dyspnea 245942181 Active [address], [place], [address] , [facility] - [facility] & [place] 4 09:39:15 Coronary atheroscle rosis 533681160 Active 2023 Doron Nicholas MD [address], [place], [address] , [facility] & [place] 4 09:39:43 Paroxysmal atrial fibrillati on 575444359 Active 2023 Doron Nicholas MD [address] , [place], [address] , [facility] & [place] 4 10:01:02 Ischemic congestive cardiomyop athy 243710722 Active 2023 Doron Nicholas MD [address], [place], [address] , [facility] & [place] 4 10:02:51 Notes:Some problems listed i n Document: #[id number] could not be added to this patient's chart. Please review this document and add these problems to the patient's chart manually as needed. Problem Notes None recorded. Procedures Surgical History Date Name Laterality Status Provider Name and Address Organization Details Recorded Time 9 [facility]G [facility] & [place] 11/24/2022 16:56:29 8 procedure [facility] & [place] 11/24/2022 16:57:32 repair of tendo achilles [facility] & [place] 11/24/2022 16:55:48 Imaging Results None recorded. Procedure Notes None recorded. Medical Equipment None Reported. Allergies No known drug allergies Medications Name Sig Start Date Stop Date Status Note LastModified by Organization Details LastModified Time losartan 50 mg tablet TAKE 1/2 TABLET BY MOUTH DAILY 10/13 completed Not Available Not Available Not Available amoxicillin 500 mg capsule TAKE 1 TABLET 3 TIMES PER DAY FOR 7 DAYS 03/23 completed Not Available Not Available Not Available furosemide 40 mg tablet TAKE 1.5 TABLETS EVERY 12 HOURS BY ORAL ROUTE FOR 90 DAYS. active Not Available Not Available No t Available atorvastati n 40 mg tablet TAKE 1 TABLET BY MOUTH EVERY DAY AT NIGHT 10/13 completed Not Available Not Available Not Available doxycycline hyclate 100 mg capsule TAKE 1 CAPSULE BY MOUTH TWICE A DAY FOR 7 DAYS 03/23 completed Not Available Not Available Not Available ketoconazol e 200 mg tablet TAKE 1 TABLET BY MOUTH EVERY DAY IN THE MORNING FOR 5 DAYS 11/30 completed Not Available Not Available Not Available ibuprofen 800 mg tablet TAKE 1 TABLET BY MOUTH EVERY 6 HOURS NEEDED FOR PAIN 03/23 completed Not Available Not Available Not Available hydrocodone 5 mg-acetamin ophen 325 mg tablet TAKE ONE TABLET BY MOUTH TWICE DAILY MAY CAUSE DROWSINES S active Not Available Not Available No t Available prednisone 20 mg tablet PLEASE SEE ATTACHED FOR DETAILED DIRECTION S 11/30 completed Not Available Not Available Not Available clobetasol 0.05 % topical cream APPLY TO AFFECTED AREA TWICE A DAY 10/13 completed Not Available Not Available Not Available potassium chloride ER 10 mEq tablet,exte nded release TAKE 1 TABLET BY MOUTH EVERY DAY active Not Available Not Available No t Available aspirin 81 mg tablet,gabriel yed release TAKE 1 TABLET BY MOUTH EVERY DAY active Not Available Not Available No t Available tramadol 50 mg tablet TAKE ONE TABLET BY MOUTH TWICE DAILY NEEDED FOR PAIN active Not Available Not Available No t Available carvedilol 3.125 mg tablet TAKE 1 TABLET BY MOUTH TWICE A DAY 10/13 completed Not Available Not Available Not Available pantoprazol e 20 mg tablet,gabriel yed release 11/30 completed Not Available Not Available Not Available hydrocodone 7.5 mg-acetamin ophen 325 mg tablet TAKE ONE TABLET BY MOUTH THREE TIMES DAILY active Not Available Not Available No t Available pantoprazol e 40 mg tablet,gabriel yed release TAKE 1 TABLET BY MOUTH IN THE MORNING FOR 14 DAYS 11/30 completed Not Available Not Available Not Available triamcinolo ne acetonide 0.1 % topical ointment APPLY THIN COAT TO AFFECTED AREA TWICE A DAY 10/13 completed Not Available Not Available Not Available aspirin 81 mg chewable tablet 03/23 completed Not Available Not Available Not Available hydrocortis one 2.5 % topical cream APPLY TO AFFECTED AREA TWICE A DAY 05/10 /2024 completed Not Available Not Available Not Available lisinopril 5 mg tablet TAKE 1 TABLET BY MOUTH EVERY DAY 11/30 completed Not Available Not Available Not Available mupirocin 2 % topical ointment PLEASE SEE ATTACHED FOR DETAILED DIRECTION S 10/13 completed Not Available Not Available Not Available furosemide 20 mg tablet TAKE 1 TABLET BY MOUTH EVERY DAY 10/13 completed Not Available Not Available Not Available nystatin 100,000 unit/gram topical powder APPLY TO AFFECTED AREA EXTERNALL Y TWICE A DAY DIRECTED FOR 10 DAYS 10/13 completed Not Available Not Available Not Available methylpredn isolone 4 mg tablets in a dose pack TAKE 6 TABLETS ON DAY 1 DIRECTED ON PACKAGE AND DECREASE BY 1 TAB EACH DAY FOR A TOTAL OF 6 DAYS 11/30 completed Not Available Not Available Not Available albuterol sulfate HFA 90 mcg/actuati on aerosol inhaler NEEDED 2 PUFFS BY MOUTH EVERY 4-6 HOURS NEEDED FOR WHEEZE active Not Available Not Available No t Available betamethaso ne dipropionat e 0.05 % lotion APPLY 1 APPLICATI ON TOPICALLY EVERY DAY FOR 10 DAYS 11/30 completed Not Available Not Available Not Available doxycycline hyclate 100 mg tablet TAKE 1 TABLET BY MOUTH TWICE A DAY FOR 10 DAYS 11/30 completed Not Available Not Available Not Available naproxen 500 mg tablet TAKE 1 TABLET BY MOUTH TWICE A DAY FOR 14 DAYS 11/30 completed Not Available Not Available Not Available escitalopra m 10 mg tablet TAKE 1 TABLET BY MOUTH EVERY DAY 03/23 completed Not Available Not Available Not Available Klor-Con M20 mEq tablet,exte nded release TAKE 1 TABLET BY MOUTH EVERY DAY 11/30 completed Not Available Not Available Not Available Klor-Con M10 mEq tablet,exte nded release TAKE 1 TABLET BY MOUTH EVERY DAY 10/13 completed Not Available Not Available Not Available duloxetine 30 mg capsule,del ayed release TAKE 1 CAPSULE BY MOUTH EVERY DAY FOR 90 DAYS active Not Available Not Available No t Available duloxetine 60 mg capsule,del ayed release TAKE 1 CAPSULE BY MOUTH EVERY DAY 12/05 completed Not Available Not Available Not Available Cymbalta 20 mg capsule,del ayed release Take 1 {capsule} twice a day by oral route. 03/23 completed Not Available Not Available Not Available pregabalin 100 mg capsule TAKE 1 CAPSULE BY MOUTH THREE TIMES A DAY active Not Available Not Available No t Available pregabalin 150 mg capsule 03/23 completed Not Available Not Available Not Available pregabalin 200 mg capsule TAKE 1 CAPSULE BY MOUTH TWICE A DAY FOR 90 DAYS 10/13 completed Not Available Not Available Not Available pregabalin 300 mg capsule 11/30 completed Not Available Not Available Not Available varenicline tartrate 0.5 mg (11)-1 mg (42) tablets in a dose pack TAKE 1 STARTR PK BY ORAL ROUTE DIRECTED. 11/30 completed Not Available Not Available Not Available cholecalcif kem (vitamin D3) 1,250 mcg (50,000 unit) capsule TAKE 1 CAPSULE BY MOUTH EVERY 84 HOURS 11/30 completed Not Available Not Available Not Available buprenorphi ne 2 mg-naloxone 0.[address] 1 FILM 3 TIMES A DAY BY SUBLINGUA L ROUTE FOR 30 DAYS. 03/23 completed Not Available Not Available Not Available Antiseptic Skin Cleanser (chlorhexid ine) 4 % liquid SHOWER EACH DAY WITH SOLUTION FOR 5 DAYS BEGINNING 5 DAYS BEFORE SURGERY. 11/30 completed Not Available Not Available Not Available Xarelto 20 mg tablet TAKE 1 TABLET BY MOUTH EVERY DAY active Not Available Not Available No t Available buprenorphi ne 4 mg-naloxone [address] 1 FILM TWICE A DAY BY SUBLINGUA L ROUTE FOR 30 DAYS. 03/23 completed Not Available Not Available Not Available potassium chloride ER 20 mEq tablet,exte nded release TAKE 1 TABLET BY MOUTH DAILY 12/13 completed Not Available Not Available Not Available Ozempic 0.25 mg or 0.5 mg (2 mg/1.5 mL) subcutaneou s pen injector INJECT 1MG SUBCUTANE OUSLY WEEKLY 11/30 completed Not Available Not Available Not Available Wixela Inhub 250 mcg-50 mcg/dose powder for inhalation INHALE 1 PUFF TWICE A DAY 2023 active Not Available Not Available Not Avai lable Wixela Inhub 100 mcg-50 mcg/dose powder for inhalation INHALE 1 PUFF TWICE A DAY BY INHALATIO N ROUTE. 12/13 completed Not Available Not Available Not Available Vitals Date Recorded Body height Body mass index (BMI) Body weight Body temperature Oxygen saturation Oxygen saturation in Arterial blood by Pulse oximetry Heart rate Systolic blood pressure Diastolic blood pressure Provider Name and Address Organization Details Last Updated DateTime 4 177.8 cm 34.3 kg/m2 929075. 58 g 98.1 [degF] 96 % 96 % 60 /min 134 mm[Hg] 76 mm[Hg] Bing Baronesimin [facility] & [place] 4 11:09:59 Date Recorded Body height Body mass index (BMI) Body weight Body temperature Oxygen saturation Oxygen saturation in Arterial blood by Pulse oximetry Heart rate Systolic blood pressure Diastolic blood pressure Provider Name and Address Organization Details Last Updated DateTime 3 177.8 cm 32.4 kg/m2 080113. 88 g 97.5 [degF] 89 % 89 % 81 /min 124 mm[Hg] 70 mm[Hg] Bing Baronesimin SADI [facility] [place] 3 10:18:16 Date Recorded Body height Body mass index (BMI) Body weight Oxygen saturation Oxygen saturation in Arterial blood by Pulse oximetry Heart rate Systolic blood pressure Diastolic blood pressure Provider Name and Address Organization Details Last Updated DateTime 4 177.8 cm 33 kg/m2 380859. 25 g 97 % 97 % 41 /min 128 mm[Hg] 78 mm[Hg] Briana Man S[facility] [place] 4 09:13:04 Date Recorded Body height Body mass index (BMI) Body weight Body temperature Oxygen saturation Oxygen saturation in Arterial blood by Pulse oximetry Heart rate Systolic blood pressure Diastolic blood pressure Provider Name and Address Organization Details Last Updated DateTime 4 177.8 cm 32.1 kg/m2 106123. 69 g 97.3 [degF] 96 % 96 % 64 /min 156 mm[Hg] 84 mm[Hg] Bing AVITIA [facility] [place] 4 10:11:07 Date Recorded Body weight Body mass index (BMI) Body height Body temperature Oxygen saturation Oxygen saturation in Arterial blood by Pulse oximetry Heart rate Systolic blood pressure Diastolic blood pressure Provider Name and Address Organization Details Last Updated DateTime 2 589342. 32 g 35.4 kg/m2 177.8 cm 98.2 [degF] 95 % 95 % 67 /min 120 mm[Hg] 70 mm[Hg] Bing AVITIA [facility] [place] 11:27:32 Social History Question Answer Notes LastModified by Organizat ion Details LastModified Time Tobacco Smoking Status Current Every Day Smoker Bing [email or web address], [facility] & [place] 03/23/2022 11:35:49 Do You Have An Advance Directive? Yes Information not available 11/30/2022 Are You Blind Or Do You Have Difficulty Seeing? No [email or web address] Information not available 11/30/2022 What Is Your Level Of Caffeine Consumption? Moderate [email or web address] Information not available 12/06/2023 Are You Deaf Or Do You Have Serious Difficulty Hearing? Yes [email or web address] Information not available 12/14/2023 What Type Of Diet Are You Following? REGULAR [email or web address] Information not available 11/30/2022 Have There Been Any Changes To Your Family Or Social Situation? No [email or web address] Information not available 11/30/2022 In General, Would You Say Your Health Is Good [email or web address] Information not available 12/14/2023 How Would You Describe The Condition Of Your Mouth And Teeth including False Teeth Or Dentures? Fair [email or web address] Information not available 12/14/2023 Each Night, How Many Hours Of Sleep Do You Usually Get? 5-6 Hours [email or web address] Information not available 12/14/2023 Do You Snore Or Has Anyone Told You That You Snore? No [email or web address] Information not available 11/30/2022 In The Past 7 Days, How Often Have You [place] Sleepy During The Daytime? Always [email or web address] Information not available 11/30/2022 Do You Have Chronic Pain? Yes [email or web address] Information not available 11/30/2022 If Yes, Location Of Pain Back [email or web address] Information not available 11/30/2022 In The Past 7 Days, How Would You Rate Your Pain? Moderate Pain(4-6) Information not available 11/30/2022 Are You In A Pain Management Program? No [email or web address] Information not available 11/30/2022 Do You Take Opioids For Your Pain? No [email or web address] Information not available 11/30/2022 How Often Is Stress A Problem For You In Handling Such Things As: Your Health, Your Finances, Your Family And Social Relationships, Your Work? Sometimes [email or web address] Information not available 11/30/2022 How Often Do You Get The Social And Emotional Support You Need: Usually [email or web address] Information not available 11/30/2022 In The Past 7 Days, Did You Need Help From Others To Take Care Of Things Such As Laundry And Housekeep- Ing, Banking, Shopping, Using The Telephone, Food Preparation, Transportation, Or Taking Your Own Medications? Yes Information not available 11/30/2022 Do You Live Alone? No Information not available 11/30/2022 Does Your Home Have Any Fall Risks (un-level Floors, Unfastened Rugs, Poor Lighting, Etc)? No [email or web address] Information not available 11/30/2022 Do You Feel Safe At Home? Yes [email or web address] Information not available 12/14/2023 What Is Your Current Pack Years? [email or web address] Information not available 03/23/2022 What Is Your Relationship Status? [email or web address] Information not available 11/30/2022 Do You Use Your Seat Belt Or Car Seat Routinely? Yes [email or web address] Information not available 11/30/2022 Do You Have Smoke And Carbon Monoxide Detectors In Your Home? Yes [email or web address] Information not available 11/30/2022 At What Age Did You Start Smoking Tobacco? 17 Reduced To 11-15 A Day [email or web address] Information not available 03/23/2022 How Much Tobacco Do You Smoke? 1 PPD [email or web address] Information not available 03/23/2022 How Many Years Have You Smoked Tobacco? 60 [email or web address] Information not available 12/14/2023 Do You Have Difficulty Walking Or Climbing Stairs? Yes Information not available 11/30/2022 Sex: Male Functional Status Question Answer Note LastModified by Organizat ion Details LastModified Time Do you use any illicit or recreational drugs? No [email or web address] Information not available 12/06/2023 What is your level of alcohol consumption? None Information not available 03/23/2022 Do you have transportation difficulties? No Information not available 11/30/2022 Are you able to walk? [email or web address] Information not available 11/30/2022 Do you have difficulty doing errands alone? Yes [email or web address] Information not available 11/30/2022 Are you able to care for yourself? Yes [email or web address] Information not available 11/30/2022 Do you have difficulty dressing or bathing? No [email or web address] Information not available 11/30/2022 What is your exercise level? None [email or web address] Information not available 11/30/2022 Mental Status Question Answer Note LastModified by Organizat ion Details LastModified Time Do you feel stressed (tense, restless, nervous, or anxious, or unable to sleep at night)? [id number] [email or web address] Information not available 11/30/2022 Do you have difficulty concentrating, remembering or making decisions? No [email or web address] Information no t available 11/30/2022 Family History Relationship Description Onset Age of this Age Resolved Age Notes LastModified by Organization Details LastModified Time Father Malignant neoplastic disease [email or web address] Not available 2023 09:34:23 Mother Malignant neoplastic disease [email or web address] Not available 2023 09:34:23 Medical History Condition Response Anxiety Disorder Y Muscle, Joint, or Bone Problems Y Heart Disease Y Depression Y Immunizations Vaccine Type Date Status Note Provider Nam e and Address Organization Details Recorded Time Influenza, high-dose, quadrivalent, PF 2 completed Luz Maria Garza- SUSAN null, [place] - [facility] [place] & [place] 11/24/2022 16:55:19 COVID-19, mRNA, LNP-S, PF, 100 mcg/0.5mL dose or 50 mcg/0.25mL dose 2 completed Luz Maria DAVIS null, [place] - [facility] & [place] 11/24/2022 16:55:19 COVID-19, mRNA, LNP-S, bivalent, PF, 50 mcg/0.5 mL or 25mcg/0.25 mL dose 2 completed Luz Maria DAVIS [place], [place] [facility] [place] [facility] [place] 11/24/2022 16:55:19 Influenza, high-dose, trivalent, PF 7 completed Luz Maria Garza- RCT [place], [place] [facility] [place] [facility] [place] 11/24/2022 16:55:19 Influenza, adjuvanted, trivalent, PF 9 completed Chrissy Ksenia [place] [facility] [place] [facility] [place] 10/12/2023 09:32:07 Influenza, adjuvanted, trivalent, PF 8 completed Chrissy Ksenia [place] [facility] [place] [facility] [place] 10/12/2023 09:32:07 zoster recombinant 1 completed Chrissy Ksenia [place] [facility] [place] [facility] [place] 10/12/2023 09:32:07 COVID-19, mRNA, LNP-S, PF, 100 mcg/0.5mL dose or 50 mcg/0.25mL dose 1 completed Chrissy Ksenia [place] [facility] [place] [facility] [place] 10/12/2023 09:32:07 COVID-19, mRNA, LNP-S, PF, 100 mcg/0.5mL dose or 50 mcg/0.25mL dose 1 completed Chrissy Ksenia null[place] [facility] [place] [facility] [place] 10/12/2023 09:32:07 COVID-19, mRNA, LNP-S, PF, 100 mcg/0.5mL dose or 50 mcg/0.25mL dose 1 completed Chrissy Ksenia [place] [facility] [place] [facility] [place] 10/12/2023 09:32:08 pneumococcal polysaccharide PPV23 1 completed Chrissy Ksenia [place] [facility] [place] [facility] [place] 10/12/2023 09:32:08 Tdap 0 completed Chrissy Ksenia [place] [facility] [place] & [place] 10/12/2023 09:32:08 Pneumococcal conjugate PCV 13 9 completed Chrissy Ksenia [place] [facility] [place] [facility] [place] 10/12/2023 09:32:08 Influenza, high-dose, trivalent, PF 5 completed Chrissy cardoza, SADI - [facility] - [place] & [place] 10/12/2023 09:32:08 Influenza, split virus, quadrivalent, PF 1 completed Chrissy Mccormack null, SADI - [facility] [place] & [place] 10/12/2023 09:32:08 Influenza, split virus, quadrivalent, PF 0 completed Chrissy cardoza, SADI - [facility] [place] & [place] 10/12/2023 09:32:08 Past Encounters Encounter ID Performer Location Encounter Start Date Encounter Closed Date Diagnosis/Indication Diagnosis SNOMED-CT Code Diagnosis ICD10 Code Diagnosis Note [id number] Raphael Mendoza MD [address] [place] [address] 03/23/2022 11:14:02 03/23/2022 11:56:51 Morbid obesity 419383707 E66.01 Neuropathy 164707431 G62 .9 Candidiasis of skin 4988 3006 B37.2 [id number] Raphael Mendoza MD [address] [place] [address] 11/30/2022 09:53:28 11/30/2022 11:01:07 Tobacco dependence syndrome 32152995 F17.210 Obesity 295962969 E66.9 Adult heal th examination 282146019 Z00.00 Discussed need for living well with patient.No evidence of cognitive decline based on verbal interactio ns and physical exam patient. Currently being treated for depression successful ly with Cymbalta. Due to his recent surgery and use of a rolling walker he is a bit of a fall risk. We have discuss some preventive strategies . Medication s reviewed reconciled . He is currently on Lyrica only. No longer on narcotics. Preventive maintenanc e strategies discussed patient and copy in chart. He is due for low-dose lung cancer screening test because of his history of continued nicotine abuse. Depressive disorder 3548 9007 F32.A Low back pain 797693045 M54.50 Nocturia 724004986 R35.1 Eczema 68439176 L30.9 [id number] Raphael Mendoza MD [facility] [address] [place] [address] 10/14/2023 10:49:14 10/14/2023 11:48:09 Chronic low back pain 922496232 M54.50 Depressive disorder 3548 9007 F32.A Asthma 218023396 J45.90 9 [id number] Raphael Mendoza MD [facility] [address] [place] [address] 12/14/2023 09:49:36 12/14/2023 10:41:44 Adult health examination 378162556 Z00.00 Discussed need for living well with patient.No evidence of cognitive decline based on verbal interactio ns and physical exam patient. Currently being treated for depression successful ly with Cymbalta.M edications reviewed reconciled . He is currently on Lyrica only. No longer on narcotics. Preventive maintenanc e strategies discussed patient and copy in chart. He is due for low-dose lung cancer screening test because of his history of continued nicotine abuse. Paroxysmal atrial fibrillation 497662888 I48.0 Ischemic c ongestive cardiomyopathy 620277356 I25.5 Nocturia 082179048 R35.1 Tobacco de pendence syndrome 94640706 F17.799 [id number] Doron Nicholas MD [facility] [address] [place] [address] 12/06/2023 08:55:25 12/06/2023 10:21:12 Cigarette smoker 20600467 F17.210 Complete smoking cessation strongly urged.Risk s associated with smoking including cardiovasc ular affects of [place] stroke in addition to high risk of long bladder and other cancers were discussed. Tips and resources provided as noted below We discuss many products that can help you quit smoking. These products include a nicotine patch, gum, lozenge, nasal spray, and inhaler or other prescripti on medication she has not motivated to quit at this point For more helpful tips and resources, visit:[facility] s smoke-free programs at www.smokef ree.gov 877-44U-QU IT ([phone]) Total of 7 minutes were spent discussing the above Chronic ob structive pulmonary disease 77196201 J44.9 Coronary atherosclerosis 852361065 I25.700 LVEF 45% with wall motion abnormalit ies. Will order stress test for ischemic evaluation .continue aggressive risk factor modificati on Dyspnea 545880696 R06.00 Given clinical presentati on and risk profile , will get stress test for ischemic evaluation and risk stratifica tion Paroxysmal atrial fibrillation 584292820 I48.0 rates well controlled . Will start Xarelto. Ischemic c ongestive cardiomyopathy 910794208 I25.5 LVEF around 45% possibly ischemic, stress test pendingcli nically well compensate d Noncomplia nce with medication regimen 284587687 Z91.148 he has been noncomplia nt with his medication s including statin and anticoagul ation. Health Concerns Section Related Observation LastModified by Organization Detai ls LastModified Time None Recorded Concern Status LastModified by Organization Details LastModified Time None Recorded Advance Directives Directive Y: Payers Insurance Date Sequence Insurance Name Policy Number Policy [place] Covered Member ID [place] Member ID Guarantor Name 10/14/2023 2 [employer] (MEDICARE SUPPLEMENT) José Basurto [id number] José Basurto 01/07/2024 1 [place] José Basurto [id number] José Basurto Notes Date Note Type Note Provider Name and Address Organization Details Recorded Time 2 text/html he is here for few problems. He is having issues with morbid obesity. We put him on Ozempic and what he is tolerating the medication is not really seeing much improvement in his weight. He is on 0.5 mg weekly right now. 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 He has a neurology appointment in the upcoming days. Review of his chart shows this been awhile since we have done a B12 and folate level on this patient. He continues to struggle regarding rash in his groin. Was given the statin powder which seems to make it go away but it just comes right back after he stops the medication. He is primarily wheelchair-bound due to his Raphael Mendoza MD [address], [place], [address], [facility] 03/23/2022 12:53:18 3 text/html He is here for Medicare annual wellness exam discuss his medical problems. He is history of chronic neck and back pain. , depression, COPD with continued nicotine abuse, obesity. He had surgery down a [place] for his neck and seems to be doing much better. He is currently off all narcotic prescriptions but still taking Lyrica. Currently on Cymbalta for his depressive disorder seems to be doing well. His past medical history, social history, surgical history, family history reviewed and preventive maintenance strategies discussed with the patient. Raphael Mendoza MD [address], [place], [address], [facility] [place] 11/30/2022 11:21:18 4 text/html He is here for follow-up. He and his girlfriend who moved back to [place] after the winter in [place]. He is history of chronic low back pain followed by pain management in [place], depression, asthma. He continues get Lyrica from his pain medicine physician in [place]. He needs a new power mobility device. Needs a prescription for this as I believe he already has the paperwork filled out. He is having worsening depression because of his limitations from a physical standpoint he gets very depressed. Especially in his time of year when mowing the yd seems to be something he truly enjoys. He has history of asthma needs refill of his inhaler. Raphael Mendoza MD [address], [place], [address], [facility] [place] 10/14/2023 11:54:43 4 text/html 78 M here for post hospital fuI saw him in the hospital with decompensated heart failure in a setting of noncompliance with diuretic therapy. He is here for follow-up. He has no specific complaints. Has mild peripheral edema but has been taking Lasix. He was also found to be in atrial fibrillation which is a new diagnosis. He is supposed to be on Eliquis but not on his medication list today. He is in AFib but rates are well controlled and asymptomaticNot taking statin either- will reorderHe has a h/o non compliance with mediactions :I saw in with decompensated systolic heart failure due to noncompliance with diuretic regimen. +Coronary artery disease, status post coronary artery bypass grafting.+Atrial fibrillation new diagnosis. The patient denies any palpitations orprior history of atrial fibrillation, rates are well controlled. Continuewith Eliquis for cerebrovascular accident prophylaxis.+Hyperlipid emia. We will get lipid profile. Initiate statin given underlyingcoronary artery disease.+Hypertension. Blood pressure is on the higher side. We will start Coreg3.125 b.i.d.+Tobacco abuse. 1pk/day, not motivated to quit EKG 12/06/2023 atrial fibrillation rate of 61, PVCs, anterior septal Q-waves Echocardiogram 11/2023 showed EF around 45% with hypokinesis to akinesis in theinferior and posterior wall. Mild AI, mild MR. social history: [facility] [place], Doron Nicholas MD [address], [place], [address], [facility] [place] 12/06/2023 16:49:48 4 text/html He is here for Medicare annual wellness exam discuss his medical problems. He is history of paroxysmal atrial fibrillation, ischemic cardiomyopathy, chronic low back pain.He continues see cardiology locally. Continues do relatively well. He is on Xarelto currently. He is on Lyrica for his chronic pain. Currently not on narcotics. Continues to struggle regarding pain. Limits his ability to perform most ADLs. His past medical history, social history, surgical history, family history reviewed and preventive maintenance strategies discussed patient. Raphael Mendoza MD [address], [place], [address], [facility] [place] 12/14/2023 12:40:16
--- OUTSIDE RECORDS SUMMARY | 2024-11-16 13:07 | XMS_ITS | Data Portability ---
Author Organization [place] - [facility] [place], Main Office Address [address] [facility] [address] [place] [address] Care Team Providers Care Support Team Assoc Name Role Phone VIOLETA WEST OTHER CANDY JOHNSON Primary Care Provider SOFI HE[facility] Vascular Surgeon Assessment No assessment recorded. Plan of Treatment Reminders Order Date Submit Date Provider Last Modified By Organization Details Last Modified Time Details Appointments None recorded. Lab None recorded. Referral None recorded. Procedures None recorded. Surgeries None recorded. Imaging US, echocardiog luis, transthorac ic, complete, w/ color flow 2020 021 ELIANA Not available 10:40:17 electrocard iogram 2019 020 ELIANA In-Office Order, Internal Use Only DO Not Attach Compendium DO Not Attach Compendium, Do Not Delete/merge, [id number] 0 12:11:01 Medication Orders None recorded. Patient TargetsNo targets recorded. Patient Instructions Encounter Date Encounter Id Patient Instructions Last Modified By Organization Details Last Modified Time 08/01/2019 [id number] high blood pressure: care instructions vluu Not available 08/01/2019 12:02:26 learning about high blood pressure vluu Not available 08/01/2019 12:02:27 high cholesterol : care instructions vluu Not available 08/01/2019 12:02:26 heart failure: care instructions vluu Not available 08/01/2019 12:02:27 learning about heart failure vluu Not available 08/01/2019 12:02:27 04/24/2021 [id number] high blood pressure: care instructions vluu Not available 04/24/2021 12:12:47 learning about high blood pressure vluu Not available 04/24/2021 12:12:48 high cholesterol : care instructions vluu Not available 04/24/2021 12:12:47 heart failure: care instructions vluu Not available 04/24/2021 12:12:47 learning about heart failure vluu Not available 04/24/2021 12:12:48 07/01/2021 [id number] high blood pressure: care instructions vluu Not available 07/01/2021 17:09:59 learning about high blood pressure vluu Not available 07/01/2021 17:09:59 high cholesterol : care instructions vluu Not available 07/01/2021 17:09:59 heart failure: care instructions vluu Not available 07/01/2021 17:09:59 learning about heart failure vluu Not available 07/01/2021 17:09:59 Reason for Referral None Reported. Results Created Date Observation Date Name Description Value Unit Range Abnormal Flag Note LastModifiedBy Organization Detail LastModifiedTime 04/29/20 21 04/29/2021 [facility] [place] sodium 141 mmol/ L 136-14 5 Not Available [facility] [address], [address], 04/29/2021 13:37:57 04/29/20 21 04/29/2021 [facility] [place] potassium 3.9 mmol/ L 3.5-5. 1 Not Available [facility] [address], [address], 04/29/2021 13:37:57 04/29/20 21 04/29/2021 [facility] [place] chloride 115 mmol/ L 98-107 high Not Available [address], [address], 04/29/2021 13:37:57 04/29/20 21 04/29/2021 [facility] [place] carbon dioxide 21 mmol/ L 21-32 Not Available [facility] [address], [address], 04/29/2021 13:37:57 04/29/20 21 04/29/2021 [facility] [place] BUN 31 mg/dL 7-18 high Not Available [facility] [address], [address], 04/29/2021 13:37:57 04/29/20 21 04/29/2021 [facility] [place] creatinine 1.10 mg/dL 0.60-1 .30 Not Available [facility] [address], [address], 04/29/2021 13:37:57 04/29/20 21 04/29/2021 [facility] [place] glucose 100 mg/dL 74-106 Not Available [facility] [address], [address], 04/29/2021 13:37:57 04/29/20 21 04/29/2021 [facility] [place] calcium 9.2 mg/dL 8.5-10 .1 Not Available [facility] [address], [address], 04/29/2021 13:37:57 04/29/20 21 04/29/2021 [facility] [place] eGFR non 64 mL/mi n/1.7 3_m2 The estim ated GFR (Glom erula r Filtr ation Rate) is based on the CKD-E PI ([employer] Research Technician yovani Kidne y Disea se Epide miolo gy Colla borat ion). Creat inine -base d equat ions are not recom yvonne d for use with: pregn ant women ; patie nts with denia us co-mo rbid condi tions ; and hospi taliz ed patie nts, parti cular ly those with acute renal failu re; perso ns with extre mes in muscl e mass and diet. Creat inine -base d estim ating equat ions shoul d be used only for patie nts with stabl e creat inine vicki ntrat ions. The equat ion has not been valid ated in patie nts less than 18 years old. Inter preta tion of eGFR Value s eGFR (mL/m in/1. 73m2) Inter preta tion ?90 Malina l 60-89 Mild decre ase 45-59 Mild to moder ate decre ase 30-44 Moder ate to sever e decre ase 15-29 Sever e decre ase <15 Kidne y failu re eGFR, estim ated glome rular filtr ation rate. Not Available [facility] [address] [place] [address], [address], 04/29/2021 13:37:57 04/29/20 21 04/29/2021 BMPWT CA eGFR 75 mL/mi n/1.7 3_m2 The estim ated GFR (Glom erula r Filtr ation Rate) is based on the CKD-E PI ([employer] Research Technician yovani Kidne y Disea se Epide miolo gy Colla borat ion). Creat inine -base d equat ions are not recom yvonne d for use with: pregn ant women ; patie nts with denia us co-mo rbid condi tions ; and hospi taliz ed patie nts, parti cular ly those with acute renal failu re; perso ns with extre mes in muscl e mass and diet. Creat inine -base d estim ating equat ions shoul d be used only for patie nts with stabl e creat inine vicki ntrat ions. The equat ion has not been valid ated in patie nts less than 18 years old. Inter preta tion of eGFR Value s eGFR (mL/m in/1. 73m2) Inter preta tion ?90 Malina l 60-89 Mild decre ase 45-59 Mild to moder ate decre ase 30-44 Moder ate to sever e decre ase 15-29 Sever e decre ase <15 Kidne y failu re eGFR, estim ated glome rular filtr ation rate. Not Available [facility] [address] [place] [address], [address], 04/29/2021 13:37:57 04/29/20 21 04/29/2021 [facility] [place] anion gap 9 Not Available Physicia ns [address], [address], 04/29/2021 13:37:57 04/29/20 21 04/29/2021 [facility] [place] BUN/crea ratio 28 ratio Not Available Physic [facility] [address] [place], [address], 04/29/2021 13:37:57 08/01/19 20 08/01/2019 suzi irizarry am No observ ation record ed. vluu In-Office Order Internal Use Only DO Not Attach Compendium DO Not Attach Compendium, Do Not Delete/merge, [id number] 04/24/2021 12:05:02 09/30/19 21 09/26/2020 trans -thor acic echoc ardio gram (TTE) (PROC ) No observ ation record ed. vluu Not Available 2020 12:05:02 03/27/20 21 03/20/2021 US, echoc ardio gram, trans thora cic, compl ete, w/ color flow No observ ation record ed. vluu Not Available 2020 12:05:02 05/05/20 21 05/05/2021 cta abdom en pelvi s [facility] Patien t: SHERMAN Y , JOSÉ W [id number] : 9[birth year] Sex: Male Locati on: [facility] RAD Orderi ng Physic tino: DANICA GARCIA MD Comput ed Tomogr aphy ACCESS ION EXAM DATE/T CARMEN 520-21 -[id number] 2020 09:10 EST Reason For Exam i71.4 Report PROCED URE INFORM ATION: Exam: CTA Abdome n and Pelvis Withou t And With Contra st Exam date and time: 2020 9:00 AM Age: 76 years old Clinic al indica tion: Abdomi nal aortic aneury sm, withou t ruptur e; Condit ion or diseas e; Other: Aaa withou t ruptur e; Prior surger y; Surger y type: Cabg x 3, aaa repair ; Additi onal info: I71.4 TECHNI QUE: Imagin g protoc ol: Comput ed tomogr aphic angiog nathanael of the abdome n and pelvis withou t and with contra st. 3D render ing (Not superv ised by radiol ogist) : MIP and/or 3D recons tructe d images were create d by the techno logist . Radiat ion optimi zation : All CT scans at this facili ty use at least one of these dose optimi zation techni ques: automa aron exposu re contro l; mA and/or kV adjust ment per patien t size (inclu clotilde target ed exams where dose is matche d to clinic al indica tion); or iterat aaron recons tructi on. Contra st materi al: ISO 370; Contra st volume : 100 ml; Contra st route: INTRAV ENOUS (IV); COMPAR BERYL: CT Abdome n Pelvis WO 2020 2:52 PM FINDIN GS: Lungs: Linear scarri ng noted at right lung base. Aorta: Periph eral vascul ar athero sclero tic change s are seen. Patien t is status post aortic stent graft repair of an abdomi nal aortic aneury sm curren tly measur ing 6.5 x 7.3 cm, simila r to prior study. No endole ak. Celiac trunk and mesent consuelo arteri es: No superi or mesent consuelo or celiac artery occlus ion or signif icant stenos is. Inferi or mesent consuelo artery origin is occlud ed.. Renal arteri es: No occlus ion or signif icant stenos is. Right iliac arteri es: No occlus ion or signif icant stenos is. Left iliac arteri es: No occlus ion or signif icant stenos is. Liver: No mass. Gallbl adder and bile ducts: Unrema rkable . No calcif ied stones . No ductal dilati on. Pancre as: Unrema rkable . No mass. No ductal dilati on. Spleen : Unrema rkable . No spleno megaly . Adrena l glands : Unrema rkable . No mass. Kidney s and ureter s: Unrema rkable . No solid mass. No hydron ephros is. Stomac h and bowel: There is coloni c divert iculos is withou t inflam mation or fluid collec tion. Append ix: No eviden ce of append icitis . Comput ed Tomogr aphy Report Intrap eriton eal space: Unrema rkable . No free air. No signif icant fluid collec tion. Lymph nodes: Unrema rkable . No enlarg ed lymph nodes. Urinar y bladde r: Unrema rkable . No mass. Reprod uctive : Unrema rkable as visual ized. Bones/ joints : No acute fractu re. No disloc ation. Soft tissue s: Small fatty ventra l hernia . IMPRES VICKY: Patien t is status post aortic stent graft repair of an abdomi nal aortic aneury sm curren tly measur ing 6.5 x 7.3 cm, simila r to prior study. No endole ak. Maximiliano Schultz MD On 2020 09:47: 14; [facility] [id number] Final Signed by: MAXIMILIANO SCHULTZ MD Signed (Elect ronsusi Signat bruce): 2020 09:47 am [facility] [address] [place], [address], 05/05/2021 10:33:25 05/08/20 21 05/04/2021 US, echoc ardio gram, trans thora cic, compl ete, w/ color flow No observ ation record ed. [facility] - Radiology Scheduling [address] [facility], [place], [address], 07/01/2021 17:07:54 05/20/20 22 05/06/2022 US, echoc ardio gram, trans thora cic, compl ete, w/ color flow No observ ation record ed. [email or web address] [facility] [address], [place], [address], 05/21/2022 13:06:55 Result Notes None recorded. Problems Name Problem SNOMED Code Status Onset Date Resolution Date Notes Provider Name and Address Organization Details Recorded Time Rupture of gastrocn emius tendon 353857383 Active Darryl Crockett LPN null, [place] [facility] [place] 9 15:04:54 Ruptured Achilles tendon - traumati c 074418482 Active Darryl Crockett LPN null, [facility] [place] 9 15:04:54 Lacerati on of lower limb 983081953 Active Darryl Crockett LPN null, [place] [facility] [place] 15:04:54 Open wound of lower leg 923664734 Active Darryl Crockett LPN null, [place] [facility] [place] 15:04:54 Hematoma 868295068 Active Darryl Crockett LPN null, [place] [facility] [place] 15:04:54 Follow-u p visit Completed 09/21/2018 ABDIRASHID CHRISTIE MD [address] ,[address] [place] [address], [phone], [facility] - [facility] [place] 9 15:50:13 Ulcer of heel 967764307 Active Darryl Crockett LPN null, [place] [facility] [place] 15:04:54 Osteoart hritis of knee 313601849 Active Darryl Crockett LPN null, [place] [facility] [place] 15:04:54 Swelling of lower leg 817912679 Completed 09/21/2018 ABDIRASHID CHRISTIE MD [address] ,[address] [place] [address], [phone], [facility] - [facility] [place] 15:50:25 Impairme nt of balance 007388919 Completed 09/21/2018 ABDIRASHID CHRISTIE MD [address] ,[address] [place] [address], [address], [facility] - [facility]14 [place] 9 15:50:21 Ankle pain 635951786 Completed 09/21/2018 ABDIRASHID CHRISTIE MD [address], [place], [address], [facility] - [facility] [place] 9 15:50:33 Tendinit is 95170999 Active Darryl Crockett LPN null, [place] [facility] [place] 15:04:54 Edema of lower extremit y 065704762 Active Darryl Crockett LPN null, [place] [facility] [place] 15:04:54 Arthriti s 4947576 Active VIOLETA WEST MD [address] [place], [address], [address] 7 21:57:07 Coronary arterios clerosis 25480672 Active 2018 S/P CABG 3 vessel, LAD, OM and PDA in 08/2018 ABDIRASHID CHRISTIE MD [address] ,[address], [place], [address], [address] 9 15:49:30 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 823852646 Active 2018 EF 38% by echocardi ogram in 08/2018 ABDIRASHID CHRISTIE MD [address] ,[address] [facility], [place], [address], [address] 9 15:50:06 Essentia l hyperten vicky 73257817 Active 2018 ABDIRASHID CHRISTIE MD [address] ,[address] [place] [address], [address], [address] 9 15:53:46 Hyperlip idemia 11662595 Active 2018 ABDIRASHID CHRISTIE MD [address] ,[address] [place] [address], [address], [address] 9 15:53:53 Overweig ht 595138594 Active 2018 ABDIRASHID CHRISTIE MD [address] ,[address] [place] [address], [address], [address] 9 15:54:04 Congesti ve heart failure 62628102 Active 2018 ABDIRASHID CHRISTIE MD [address], [place], [address], [address] 9 15:54:13 Problem Notes None recorded. Procedures Surgical History Date Name Laterality Status Provider Name and Address Organization Details Recorded Time 022 echocardiogram completed ABDIRASHID CHRISTIE MD [address] [address] [place] [address], [phone], [address] 05/21/2022 13:05:22 021 echocardiogram completed ABDIRASHID CHRISTIE MD [address], [place], [address] [place] [address], [address] 05/21/2022 13:04:10 021 Other completed America Bashir LPN [address] 07/01/2021 16:51:09 021 echocardiogram completed ABDIRASHID CHRISTIE MD [address], [place], [address] [place] [address], [address] 09/30/2020 12:17:32 020 Electrocardiogram complete completed America Bashir [address] 08/01/2019 11:43:31 019 Electrocardiogram complete completed America Bashir [address] 04/18/2019 12:24:07 019 Electrocardiogram complete completed ABDIRASHID CHRISTIE MD [address], [place], [address] [place] [address] 10/18/2018 10:07:44 019 Other completed ABDIRASHID CHRISTIE MD [address], [place], [address] [place] [address] 10/20/2018 14:41:49 019 cardiac catheterization completed ABDIRASHID CHRISTIE MD [address], [place], [address] [place] [address] 03/20/2021 16:42:35 019 echocardiogram completed ABDIRASHID CHRISTIE MD [address], [place], [address] [place] [address] 09/21/2018 15:52:59 019 Cabg vein three completed ABDIRASHID CHRISTIE MD [address], [place], [address] [place] [address], [address] 09/21/2018 15:52:19 016 [place]orticosteroid [place] [address] [place] [address], [phone], [facility] - [address] 11/25/2015 13:19:45 016 Corticosteroid Injection completed Briana Jones [place] - [address] 10/21/2015 12:51:53 016 Cortisone Injection (Knee) 80 [place] [address] [place] [address], [phone], [facility] - [address] 07/02/2015 10:49:10 015 Synvisc/Gel-One Injection completed VIOLETA WEST MD [address] [place] [address], [address], [address] 05/20/2015 23:39:34 015 Synvisc/Gel-One Injection completed VIOLETA WEST MD [address] [place] [address], [address], [address] 05/06/2015 10:33:08 015 Synvisc/Gel-One Injection completed VIOLETA WEST MD [address] [place] [address], [phone], [address] 04/29/2015 14:33:01 015 Cortisone Injection (Knee) completed Abiola Osullivan [address] 04/08/2015 10:33:45 015 Other completed Rashmi Villeda [address] 10/14/2014 10:21:27 Remove tonsils and adenoids completed Es Gomez [address] 08/20/2014 15:16:33 Imaging Results None recorded. Procedure Notes None recorded. Medical Equipment None Reported. Allergies No known drug allergies Medications Name Sig Start Date Stop Date Status Note LastModified by Organization Details LastModified Time budesonid e 0.5 mg/2ml susp 09/21 completed Not Available Not Available Not Available chantix starting month brandon 0.5 mg x11 & 1 mg x 42 tabs 04/18 completed Not Available Not Available Not Available tramadol hcl er 200 mg tb24 09/21 completed Not Available Not Available Not Available furosemid e 40 mg tabs 09/21 completed Not Available Not Available Not Available pregabali n 150 mg caps 04/18 completed Not Available Not Available Not Available dexametha sone 0.5 mg/5ml soln 04/18 completed Not Available Not Available Not Available lyrica 150 mg caps 04/18 completed Not Available Not Available Not Available zohydro er 15 mg c12a 09/21 completed Not Available Not Available Not Available escitalop luis oxalate 10 mg tabs 04/18 completed Not Available Not Available Not Available butrans 5 mcg/hr ptwk 09/21 completed Not Available Not Available Not Available metoprolo l tartrate 25 mg tabs 09/21 completed Not Available Not Available Not Available amitiza 8 mcg caps 10/18 completed Not Available Not Available Not Available advair diskus 250-50 mcg/dose aepb 09/21 completed Not Available Not Available Not Available Prescript ion - New 09/21 completed Xeroform Not Available Not Available Not Available amiodaron e hcl 200 mg tabs 09/21 completed Not Available Not Available Not Available monteluka st sodium 10 mg tabs 09/21 completed Not Available Not Available Not Available hydrocodo ne/acetam inophen 10-325 mg tabs 04/18 completed Not Available Not Available Not Available buprenorp jone 5 mcg/hr ptwk 10/18 completed Not Available Not Available Not Available atorvasta tin calcium 40 mg tabs 04/18 completed Not Available Not Available Not Available furosemid e 20 mg tabs 04/18 completed Not Available Not Available Not Available buprenorp jone 15 mcg/hr ptwk 04/18 completed Not Available Not Available Not Available buprenorp jone 7.5 mcg/hr ptwk 04/18 completed Not Available Not Available Not Available lisinopri l 20 mg tabs 04/18 completed Not Available Not Available Not Available benzonata te 100 mg caps 09/21 completed Not Available Not Available Not Available metoprolo l succinate er 25 mg tb24 09/21 completed Not Available Not Available Not Available alprazola m 0.5 mg tabs 09/21 completed Not Available Not Available Not Available potassium chloride er 20 meq tbcr 04/18 completed Not Available Not Available Not Available cephalexi n 500 mg caps 09/21 completed Not Available Not Available Not Available lyrica 300 mg caps 09/21 completed Not Available Not Available Not Available hydrocodo ne/acetam inophen 5-325 mgtabs 09/21 completed Not Available Not Available Not Available linzess 145 mcg caps 04/18 completed Not Available Not Available Not Available zolpidem tartrate 5 mg tabs 09/21 completed Not Available Not Available Not Available proair hfa 108 (90 base) mcg/act aers 09/21 completed Not Available Not Available Not Available wixela inhub 250-50 mcg/dose aepb 04/18 completed Not Available Not Available Not Available amitiza 24 mcg caps 04/18 completed Not Available Not Available Not Available celecoxib 200 mg capsule TAKE 1 CAPSULES BY MOUTH THE DAY BEFORE SURGERY; THEN TAKE 2 CAPSULES BY MOUTH THE DAY OF SURGERY WITH A SIP OF WATER 07/01 completed Not Available Not Available Not Available Santyl 250 unit/gram topical ointment USE DIRECTED active Not Available Not Available No t Available amoxicill in 500 mg capsule 07/01 completed Not Available Not Available Not Available furosemid e 40 mg tablet TAKE 1 TABLET BY MOUTH EVERY DAY 2020 active Not Available Not Available Not Avai lable atorvasta tin 40 mg tablet TAKE ONE TABLET BY MOUTH ONE TIME DAILY AT BEDTIME active Not Available Not Available No t Available silver sulfadiaz ine 1 % topical cream 07/01 completed Not Available Not Available Not Available carvedilo l 6.25 mg tablet 07/01 completed Not Available Not Available Not Available prednison e 10 mg tablet TAKE 2 TABLETS BY MOUTH TWICE A DAY FOR 5 DAYS THEN 1 TAB TWICE A DAY active Not Available Not Available No t Available doxycycli ne hyclate 100 mg capsule 07/01 completed Not Available Not Available Not Available atorvasta tin 10 mg tablet TAKE ONE TABLET BY MOUTH ONE TIME DAILY 04/24 completed Not Available Not Available Not Available azithromy sandra 250 mg tablet TAKE TWO TABLETS BY MOUTH ON DAY 1, THEN TAKE ONE TABLET EVERY DAY ON DAYS 2-5 09/21 completed Not Available Not Available Not Available ibuprofen 800 mg tablet Take by oral route for 6 days. 07/01 completed Not Available Not Available Not Available amiodaron e 200 mg tablet TAKE ONE TABLET BY MOUTH ONE TIME DAILY 10/18 completed Not Available Not Available Not Available benzonata te 200 mg capsule TAKE ONE CAPSULE BY MOUTH 3 TIMES A DAY NEEDED active Not Available Not Available No t Available hydrocodo ne 5 mg-acetam inophen 325 mg tablet TAKE ONE TABLET BY MOUTH EVERY 4 HOURS NEEDED FOR PAIN 10/18 completed Not Available Not Available Not Available Celestone Soluspan 6 mg/mL suspensio n for injection Take 1.5 mL as needed by injectio n route as directed . 09/21 completed Not Available Not Available Not Available ondansetr on HCl 8 mg tablet TAKE 1 TABLET BY MOUTH EVERY DAY 09/21 completed Not Available Not Available Not Available promethaz ine 12.5 mg tablet Take 1 tablet as needed by oral route as needed. 2014 active Not Available Not Available Not Avai lable lisinopri l 20 mg tablet Take 1 tablet every day by oral route for 90 days. 07/01 completed Not Available Not Available Not Available prednison e 20 mg tablet TAKE 1 TABLET BY MOUTH TWICE A DAY 07/01 completed Not Available Not Available Not Available Synvisc 16 mg/2 mL intra-art icular syringe 09/21 completed SYNVISC APPLICAT ION Not Available Not Available Not Available clobetaso l 0.05 % topical cream DIRECTED APPLY TO RASH ON ARMS AND LEGS TWICE DAILY FOR 10 DAYS active Not Available Not Available No t Available lidocaine HCl 2 % mucosal jelly 09/21 completed Not Available Not Available Not Available amlodipin e 5 mg tablet TAKE 1 TABLET BY MOUTH EVERY DAY 09/21 completed Not Available Not Available Not Available sulfameth oxazole 800 mg-trimet hoprim 160 mg tablet active Not Available Not Available Not Available hydrocodo ne 10 mg-acetam inophen 325 mg tablet TAKE ONE TABLET BY MOUTH EVERY 4 TO 6 HOURS NEEDED FOR PAIN 07/01 completed Not Available Not Available Not Available tramadol 50 mg tablet TAKE ONE TABLET BY MOUTH EVERY 6 TO 8 HOURS NEEDED FOR PAIN 08/01 completed Not Available Not Available Not Available Depo-Medr ol 80 mg/mL suspensio n for injection Take 80 mg as needed by injectio n route as needed for 1 day. 09/21 completed Not Available Not Available Not Available alprazola m 0.5 mg tablet TAKE 1 TABLET BY MOUTH TWICE A DAY NEEDED 09/21 completed Not Available Not Available Not Available Marcaine 0.5 % (5 mg/mL) injection solution 09/21 completed Not Available Not Available Not Available potassium chloride ER 20 mEq tablet,ex tended release(p art/cryst ) Take 1 tablet every day by oral route as needed. active Not Available Not Available No t Available oxycodone -acetamin ophen 10 mg-325 mg tablet 07/01 completed Not Available Not Available Not Available benzonata te 100 mg capsule TAKE TWO CAPSULES BY MOUTH THREE TIMES A DAY FOR 5 DAYS NEEDED FOR COUGH 10/18 completed Not Available Not Available Not Available cephalexi n 500 mg capsule TAKE ONE CAPSULE BY MOUTH EVERY 6 HOURS FOR 10 DAYS 07/01 completed Not Available Not Available Not Available Promethaz ine VC 6.25 mg-5 mg/5 mL oral syrup TAKE 1 TEASPOON FUL BY MOUTH EVERY 6 HOURS 09/21 completed Not Available Not Available Not Available Guaifenes in AC 10 mg-100 mg/5 mL oral liquid TAKE 10 ML BY MOUTH AT BEDTIME NEEDED 09/21 completed Not Available Not Available Not Available promethaz ine 25 mg tablet TAKE 1/2 TABLET BY MOUTH NEEDED 09/21 completed Not Available Not Available Not Available Advair Diskus 250 mcg-50 mcg/dose powder for inhalatio n INHALE 1 PUFF TWICE DAILY 09/21 completed Not Available Not Available Not Available mupirocin calcium 2 % topical cream APPLY TO AFFECTED AREA 3 TIMES DAILY FOR 10 DAYS 09/21 completed Not Available Not Available Not Available docusate sodium 100 mg capsule TAKE 1 CAPSULE( S) TWICE DAILY active Not Available Not Available No t Available omeprazol e 20 mg capsule,d elayed release TAKE ONE CAPSULE BY MOUTH EVERY DAY NEEDED FOR GERD 09/21 completed Not Available Not Available Not Available budesonid e 0.5 mg/2 mL suspensio n for nebulizat ion INHALE ONE VIAL VIA NEBULIZE R TWICE A DAY 09/21 completed Not Available Not Available Not Available monteluka st 10 mg tablet TAKE ONE TABLET BY MOUTH ONE TIME DAILY AT BEDTIME active Not Available Not Available No t Available lisinopri l 5 mg tablet Take 1 tablet every day by oral route for 90 days. active Not Available Not Available No t Available mupirocin 2 % topical ointment APPLY TO NOSTRILS THREE TIMES A DAY FOR 7 DAYS PRIOR TO SURGERY; DO NOT USE THE DAY OF PREADMIT AT HOSPITAL 07/01 completed Not Available Not Available Not Available furosemid e 20 mg tablet TAKE ONE TABLET BY MOUTH ONE TIME DAILY NEEDED 04/10 completed Not Available Not Available Not Available metoprolo l succinate ER 25 mg tablet,ex tended release 24 hr Take 1 tablet every day by oral route for 90 days. 2021 active Not Available Not Available Not Avai lable Aspir-81 mg tablet,de layed release Take 1 tablet every day by oral route. active Not Available Not Available No t Available cefuroxim e axetil 500 mg tablet TAKE 1 TABLET BY MOUTH EVERY 12 HOURS active Not Available Not Available No t Available levofloxa sandra 500 mg tablet TAKE 1 TABLET BY MOUTH FOR 10 DAYS active Not Available Not Available No t Available zolpidem 10 mg tablet TAKE 1 TABLET BY MOUTH AT BEDTIME 09/21 completed Not Available Not Available Not Available albuterol sulfate HFA 90 mcg/actua tion aerosol inhaler INHALE TWO PUFFS BY MOUTH EVERY 4 HOURS NEEDED FOR WHEEZING active Not Available Not Available No t Available doxycycli ne hyclate 100 mg tablet Take 1 tablet twice a day by oral route for 7 days. 07/01 completed Not Available Not Available Not Available nicotine 7 mg/24 hr daily transderm al patch Apply 1 patch every day by transder mal route. 04/18 completed Not Available Not Available Not Available oxycodone 5 mg tablet TAKE ONE TO TWO TABLETS BY MOUTH EVERY 4 HOURS NEEDED FOR PAIN 07/01 completed Not Available Not Available Not Available hydroxyzi ne pamoate 25 mg capsule 07/01 completed Not Available Not Available Not Available escitalop luis 10 mg tablet TAKE ONE TABLET BY MOUTH ONE TIME DAILY 07/01 completed Not Available Not Available Not Available metoprolo l tartrate 25 mg tablet TAKE ONE-HALF TABLET BY MOUTH TWICE A DAY 09/21 completed Not Available Not Available Not Available duloxetin e 30 mg capsule,d elayed release 07/01 completed Not Available Not Available Not Available duloxetin e 60 mg capsule,d elayed release Take 1 capsule every day by oral route for 30 days. active Not Available Not Available No t Available pregabali n 150 mg capsule TAKE ONE CAPSULE BY MOUTH FOUR TIMES A DAY FOR 30 DAYS 07/01 completed Not Available Not Available Not Available pregabali n 200 mg capsule Take 1 capsule 3 times a day by oral route for 30 days. active Not Available Not Available No t Available Lyrica 100 mg capsule TAKE ONE CAPSULE BY MOUTH 4 TIMES A DAY 09/21 completed Not Available Not Available Not Available Lyrica 300 mg capsule TAKE ONE CAPSULE BY MOUTH TWICE A DAY 09/21 completed Not Available Not Available Not Available zolpidem ER 12.5 mg tablet,ex tended release,m ultiphase TAKE 1 TABLET BY MOUTH AT BEDTIME 09/21 completed Not Available Not Available Not Available albuterol 2 puff inhalati on every 4 hours as needed for wheezing 07/01 completed Not Available Not Available Not Available Amitiza 24 mcg capsule TAKE ONE CAPSULE BY MOUTH TWICE A DAY WITH MEALS FOR 30 DAYS 04/18 completed Not Available Not Available Not Available Chantix 0.5 mg tablet 07/01 completed Not Available Not Available Not Available cholecalc iferol (vitamin D3) 1,250 mcg (50,000 unit) capsule TAKE 1 CAPSULE BY MOUTH ONCE A WEEK FOR 14 DAYS PRIOR TO SURGERY 07/01 completed Not Available Not Available Not Available CoQ-10 100 mg capsule Take 1 capsule every day by oral route. 2018 active Not Available Not Available Not Avai lable Voltaren 1 % topical gel APPLY 2 GRAM TO THE AFFECTED AREA(S) BY TOPICAL ROUTE 4 TIMES PER DAY active Not Available Not Available No t Available Amitiza 8 mcg capsule TAKE ONE CAPSULE BY MOUTH TWICE A DAY WITH MEAL(S) 10/18 completed Not Available Not Available Not Available buprenorp jone 2 mg-naloxo ne 0.5 mg sublingua l film Place 1 film every day by sublingu al route for 30 days. 07/01 completed Not Available Not Available Not Available buprenorp jone 5 mcg/hour weekly transderm al patch APPLY ONE PATCH TO THE SKIN EVERY WEEK DIRECTED FOR 28 DAYS 04/18 completed Not Available Not Available Not Available Chantix Starting Month Box 0.5 mg (11)-1 mg (42) tablets in dose pack 07/01 completed Not Available Not Available Not Available Linzess 145 mcg capsule TAKE ONE CAPSULE BY MOUTH ONE TIME DAILY DIRECTED 04/18 completed Not Available Not Available Not Available buprenorp jone 4 mg-naloxo ne 1 mg sublingua l film Place 1 film every day by sublingu al route for 30 days. active Not Available Not Available No t Available buprenorp jone 15 mcg/hour weekly transderm al patch APPLY ONE PATCH TO THE SKIN EVERY WEEK. REMOVE OLD PATCH BEFORE REPLACIN G WITH NEW PATCH 04/18 completed Not Available Not Available Not Available potassium chloride ER 20 mEq tablet,ex tended release 07/01 completed Not Available Not Available Not Available buprenorp jone 7.5 mcg/hour weekly transderm al patch APPLY 1 PATCH TO THE SKIN EVERY 7 DAYS DIRECTED , REMOVE OLD PATCH BEFORE APPLYING NEW PATCH 04/18 completed Not Available Not Available Not Available Zohydro ER 15 mg capsule, oral only,exte nded release TAKE ONE CAPSULE BY MOUTH EVERY 12 HOURS DIRECTED FOR 30 DAYS 09/21 completed Not Available Not Available Not Available Fluzone High-Dose (PF) 180 mcg/0.5 mL intramusc ular syringe TO BE ADMINIST ERED BY PHARMACI ST FOR IMMUNIZA TION 10/18 completed Not Available Not Available Not Available Entresto 24 mg-26 mg tablet Take 1 tablet twice a day by oral route for 30 days. 2021 active Not Available Not Available Not Avai lable Symproic 0.2 mg tablet 07/01 completed Not Available Not Available Not Available Fluad 65yr up(PF)45 mcg(15 mcgx3)/0. 5 mL intramusc ular syringe DIRECTED 10/18 completed Not Available Not Available Not Available Fluad 65yr up(PF)45 mcg(15 mcgx3)/0. 5 mL intramusc ular syringe USE DIRECTED 04/18 completed Not Available Not Available Not Available Vitals Date Recorded Body height Body mass index (BMI) Body weight Respiratory rate Heart rate Oxygen saturation Oxygen saturation in Arterial blood by Pulse oximetry Systolic blood pressure Diastolic blood pressure Provider Name and Address Organization Details Last Updated DateTime 2 175.26 cm 35.6 kg/m2 787264. 76 g 15 /min 69 /min 96 % 96 % 128 mm[Hg] 72 mm[Hg] America [facility] [place] 2 16:53:38 Date Recorded Body height Body mass index (BMI) Body weight Respiratory rate Oxygen saturation Oxygen saturation in Arterial blood by Pulse oximetry Heart rate Systolic blood pressure Diastolic blood pressure Provider Name and Address Organization Details Last Updated DateTime 0 175.26 cm 31.2 kg/m2 36060.9 9 g 16 /min 98 % 98 % 58 /min 122 mm[Hg] 74 mm[Hg] America Bashir [facility]14 [place] 0 11:42:40 Date Recorded Body weight Heart rate Respiratory rate Oxygen saturation Oxygen saturation in Arterial blood by Pulse oximetry Body temperature Body mass index (BMI) Body height Systolic blood pressure Diastolic blood pressure Provider Name and Address Organization Details Last Updated DateTime 1 13967.3 2 g 62 /min 16 /min 95 % 95 % 97.5 [degF] 32.5 kg/m2 175.26 cm 120 mm[Hg] 80 mm[Hg] Mj Billingsley [facility]14 [place] 1 09:31:11 Date Recorded Body height Body mass index (BMI) Body weight Heart rate Respiratory rate Oxygen saturation Oxygen saturation in Arterial blood by Pulse oximetry Body temperature Systolic blood pressure Diastolic blood pressure Provider Name and Address Organization Details Last Updated DateTime 1 175.26 cm 32.5 kg/m2 12958.3 2 g 61 /min 16 /min 97 % 97 % 97.1 [degF] 130 mm[Hg] 62 mm[Hg] Zhane zavala [facility]14 [place] 1 14:28:10 Date Recorded Body height Body mass index (BMI) Body weight Heart rate Respiratory rate Oxygen saturation Oxygen saturation in Arterial blood by Pulse oximetry Systolic blood pressure Diastolic blood pressure Provider Name and Address Organization Details Last Updated DateTime 1 175.26 cm 35.4 kg/m2 093597. 17 g 70 /min 15 /min 97 % 97 % 129 mm[Hg] 67 mm[Hg] America Bashir, LEATHER CARVER [facility]14 [place] 12:26:57 Social History Question Answer Notes LastModified by Organizat ion Details LastModified Time Tobacco Smoking Status Former Smoker Es cardoza, [address] 08/20/2014 15:16:34 What Is Your Level Of Caffeine Consumption? Occasional [email or web address] Information not available 08/20/2014 Marital Status Informatio n not available 08/20/2014 What Was The Date Of Your Most Recent Tobacco Screening? 10/18/2018 Information not available 12/29/2018 How Many Children Do You Have? 0 [email or web address] Information not available 08/20/2014 At What Age Did You Start Smoking Tobacco? 39 [email or web address] Information not available 08/20/2014 How Much Tobacco Do You Smoke? 0.5 PPD [email or web address] Information not available 08/20/2014 Sex: Unknown Functional Status Question Answer Note LastModified by Organizat ion Details LastModified Time What is your level of alcohol consumption? 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 Family History Relationship Description Onset Age of this Age Resolved Age Notes LastModified by Organization Details LastModified Time Father Hypertensive disorder Not available 2016 21:57:07 Mother Dementia [email or web address] Not available 06/07/2016 21:57:07 Medical History Condition Response Coronary Artery Disease N Heart Problems N Gout N Thyroid disorder N Blood clot/deep vein thrombosis N Hernia N Migraines N Thyroid Problems N Blood Clots N Lung Disease N GI Problems N Depression N Anemia N No past medical history reported N Ulcers N Heart Attack ([place]) N Diabetes N Anxiety Disorder N Bleeding Disorder N Hiatal hernia N Arthritis N Seizures/Epilepsy N Headaches or Migraines N Tuberculosis N AIDS/HIV N Immunizations N Urinary Tract Infection N Asthma N Leg or Foot Ulcers N Peripheral Vascular Disease N GERD/Reflux N Hepatitis N Liver Disease N Heart Disease N Rheumatoid Arthritis N Pulmonary Embolism N Dialysis N Hypertension N Osteoporosis N Kidney Disease N Past Encounters Encounter ID Performer Location Encounter Start Date Encounter Closed Date Diagnosis/Indication Diagnosis SNOMED-CT Code Diagnosis ICD10 Code Diagnosis Note [id number] VIOLETA WEST MD [facility] [address] [address] 08/20/2014 14:38:32 08/20/2014 15:38:45 Rupture of gastrocnemius tendon 287607678 Ruptured A chilles tendon - traumatic 581164085 Laceration of lower limb 603450429 [id number] VIOLETA WEST [facility] [address] [address] 09/17/2014 10:56:12 09/17/2014 11:42:44 Laceration of lower limb 174590611 Ruptured A chilles tendon - traumatic 552913888 Open wound of lower leg 966405464 verbal consent obtained and wound debrided. no complicati ons noted. xeroform drsg applied. recommend daily xeroform drsg changes. wbat with boot and wedges. f/u 2 weeks. no xrays. [id number] MD [facility] [address] [address] 10/01/2014 12:56:48 10/01/2014 13:29:57 Ruptured Achilles tendon - traumatic 119497158 wbat with boot. non viable tissue removed with forceps. xeroform dressing applied. f/u 2 weeks. Hematoma 524045291 verba l consent obtained. hematoma debrided with 15 blade scalpel. stable base obtained. xeroform dressing applied. boot applied. wound rn instructio ns given for donut dressing. may d/c boot when not wb. f/u 2 weeks. Ulcer of heel 019766948 wound debrided and dressed. elevate and donut pressure relief dressing rx'd. f/u 2 weeks. [id number] VIOLETA WEST MD [facility] [address] [place] [address] 10/14/2014 09:38:55 10/14/2014 10:31:36 Rupture of gastrocnemius tendon 516008878 continue wbat with boot. removed one wedge. f/u north to remove one juanjo every 2 weeks. d/c boot in 6-8 weeks. start PT when appropriat e. Ulcer of heel 502771234 wound debrided and dressed. elevate and donut pressure relief dressing rx'd. f/u 2 weeks. [id number] MD [facility]ON [facility]ARD[address] [facility] [address] [employer] [address] [place] [address] 03/11/2015 08:53:59 03/11/2015 09:18:07 Rupture of gastrocnemius tendon 965617505 M66.369 Recommende d physical therapy for Achilles tendon due to residual pain. Patient doesn't have a car available for him to use. Discussed expected maximum of 75% in strength compared to right calf. Will order an MRI if pain persists. Ulcer of heel 884960482 L97.409 monitor changes. [id number] MD DAMON [facility]OD[facility]ARD[address] [facility] [address] [address] 04/08/2015 09:15:32 04/08/2015 09:47:05 Rupture of gastrocnemius tendon 778113447 M66.362 Continue physical therapy for gastroc tendon due to improvemen t. Patient doesn't have a car available for him to use. Discussed expected maximum of 75% in strength compared to right calf. Will order an MRI if pain persists. monitor changes. Ulcer of heel 885109472 L97.409 monitor changes. Osteoarthr itis of knee 072370288 M17.0 Discussed non-surgic al and surgical options. Discussed bilateral knee cortisone injections to alleviate current pain. Recommende d bilateral Synvisc injections due to arthritic changes. Discussed that patient's typically notice a decrease in pain after the 1st injection more so than the 2nd. Discussed that a cortisone injection is sometimes necessary after Synvisc to help with residual swelling. [id number] MD DAMON STODDARD[facility] [facility] [address] [address] 04/29/2015 09:33:30 04/29/2015 10:00:29 Osteoarthritis of knee 392357140 M17.0 Discussed Synvisc injections due to arthritic changes to alleviate pain. Rupture of gastrocnemius tendon 426899907 M66.362 continue activity as tolerated. pt is undergoing home exercise program. [id number] MD DAMON STODDARD[facility] [facility] [address] [place] [address] 05/06/2015 09:30:21 05/06/2015 11:36:30 Osteoarthritis of knee 312713047 M17.0 Patient received his 2nd round of Synvisc injections in bilateral knees in the office today. RTC 1 week for 3rd injection Rupture of gastrocnemius tendon 953386202 M66.362 continue activity as tolerated. pt is undergoing home exercise program. [id number] MD DAMON STODDARD[facility] [facility] [address] [place] [address] 05/13/2015 09:38:28 05/13/2015 10:08:38 Osteoarthritis of knee 677131530 M17.0 Bilateral knees - 3rd round of Synvisc injections in bilateral knees was administer ed in the office today. Patient should begin noticing an improvemen t with pain over the next few weeks. He cannot receive another round of injections for 6 months. This was discussed with the patient. If the injections fail to alleviate pain, will further discuss additional options for pain treatment. I do not have any xrays of the patient's knees therefore he will need to get xrays done so I can evaluate additional treatment options, including possible knee replacemen t. Follow up in 1 month if pain does not resolve. Rupture of gastrocnemius tendon 399065543 M66.362 continue activity as tolerated. [id number] VIOLETA WEST MD [facility] [address] [place] [address] 07/02/2015 08:37:47 07/02/2015 09:28:38 Osteoarthritis of knee 401019233 M17.0 Patient completed his Synvisc injections on 05/13/15. Explained that a cortisone injection is sometimes necessary after Synvisc to help with residual swelling. Recommende d a cortisone injection in his right knee today since the pain has worsened. Right knee injection given. Patient will RTC for a left knee cortisone injection at his convenienc e. Rupture of gastrocnemius tendon 232967837 M66.362 Continue physical therapy as long as the patient reports improvemen t in his gait and pain. continue gentle stretches to improve pliability . Swelling of lower leg 44 8458120 R22.42 continue PT and lymphedema massage. Impairment of balance 38 0111722 R26.89 continue PT. if not improving then will consider neurology consult. [id number] MD DAMON STODDARDTIN [facility] [address] [address] 10/21/2015 11:32:35 10/21/2015 12:30:38 Ankle pain 327208013 M25.572 No acute osseous abnormalit y noted in xrays. Due to severe worsening, I offered the patient a cortisone inj at this time. He agreed and tolerated the procedure well. f/u prn. Edema of l ower extremity 352112816 R60.0 Inflammati on should improve with inj. f/u prn. Tendinitis 14116065 M77. 9 Discussed US results with the patient. Cortisone inj given. f/u prn. Rupture of gastrocnemius tendon 204109380 M66.362 pt is s/p gastrocnem ius tendon repair on 08/26/14. Osteoarthr itis of knee 875072326 M17.0 Previous cortisone inj did not provide any relief. Pt would like to proceed with b/l TKA when he returns to [place] in the fall. Discussed the r/b/a of TKA as well as the post-opera tive and recovery period. Explained to the patient that b/l TKA has increased risks and complicati ons, and advised pt to start with more painful knee before proceeding with the other at a later time. Pt understand s and will f/u in the fall. [id number] MD DAMON STODDARDTIN [facility] [address] [address] 10/28/2015 09:42:28 10/28/2015 10:05:37 Ankle pain 836443175 M25.572 Pain has improved but still persists 1 week following cortisone inj. Begin physical therapy 3x/week x6 weeks. Will also order for an MRI if symptoms do not improve with physical therapy prior to next visit. Edema of l ower extremity 009299642 R60.0 Inflammati on has improved but still persists 1 week following cortisone inj. Begin physical therapy 3x/week x6 weeks. Will also order for an MRI if symptoms do not improve with physical therapy prior to next visit. Tendinitis 33735312 M76. 62 See above Rupture of gastrocnemius tendon 227718848 M66.362 Inflammati on and pain improved but still persists 1 week following cortisone inj. and s/p gastrocnem ius tendon repair on 08/26/14. Begin physical therapy 3x/week x6 weeks. Will also order for an MRI if symptoms do not improve with physical therapy prior to next visit. See above. Osteoarthr itis of knee 358082428 M17.0 Pt would like to proceed with b/l TKA when he returns to [place] in the fall. Discussed the r/b/a of TKA as well as the post-opera tive and recovery period. Explained to the patient that b/l TKA has increased risks and complicati ons, and advised pt to start with more painful knee before proceeding with the other at a later time. Pt understand s and will f/u in the fall. [id number] VIOLETA WEST MD [facility] [address] [facility] [address] [place] [address] 11/18/2015 09:39:10 11/18/2015 10:10:00 Ankle pain 616091021 M25.572 Per patient, previous cortisone inj provided minimal relief, however pt reports improvemen t with physical therapy. Cont PT. Patient would like to go [place]. Explained to pt that going home is acceptable at this time. Advised pt to cont swimming and perform PT exercises at home. RICE. pain meds prn. f/u prn. Edema of l ower extremity 100505269 R60.0 Inflammati on has improved. Will monitor. f/u prn Tendinitis 96861265 M76. 62 See above Rupture of gastrocnemius tendon 756779187 M66.362 s/p gastrocnem ius tendon repair on 08/26/14. Patient reports improvemen t with physical therapy. Cont PT. f/u prn Osteoarthr itis of knee 593638007 M17.0 Pt would like to proceed with b/l TKA when he returns to [place] in the fall. Discussed the r/b/a of TKA as well as the post-opera tive and recovery period. Explained to the patient that b/l TKA has increased risks and complicati ons, and advised pt to start with more painful knee before proceeding with the other at a later time. Pt understand s and will f/u in the fall. Arthritis 0620966 M19.17 2 Reviewed MRI results with the pt. Will monitor. [id number] MD DAMON STODDARD[facility] [facility] [address] [facility] [address] [place] [address] 11/25/2015 10:11:52 11/25/2015 10:49:09 Ankle pain 889947251 M25.572 Discussed MRI results. Pt reports minimal improvemen t in pain. Discussed r/b/a of arthroscop y with subchondro plasty and arthrobros trum, as well as the post-opera tive tx and recovery period. Discussed home emily for PT/OT before and after sx. Explained that swelling may persist after sx. Pt understand s and will call to schedule. Advised pt to cont swimming and perform PT exercises. RICE. pain meds prn. f/u prn Edema of l ower extremity 141556203 R60.0 Will monitor. Tendinitis 84541071 M76. 62 Due to severe worsening, I offered the pt a cortisone inj at this time. He agreed and tolerated the procedure well. US results: limited study- ATFL thickening ; mild ankle effusion; partial tear of ATFL Rupture of gastrocnemius tendon 844218579 M66.362 s/p gastrocnem ius tendon repair on 08/26/14. Patient reports improvemen t with physical therapy. Cont PT. f/u prn Osteoarthr itis of knee 654970735 M17.0 Pt would like to proceed with b/l TKA when he returns to [place] in the fall. Discussed the r/b/a of TKA as well as the post-opera tive and recovery period. Explained to the patient that b/l TKA has increased risks and complicati ons, and advised pt to start with more painful knee before proceeding with the other at a later time. Pt understand s and will f/u in the fall. Arthritis 4151908 M19.17 2 Reviewed MRI results with the pt. Discussed surgical tx. f/u prn [id number] MD [facility] [address] [facility] [address] [place] [address] 04/13/2016 16:08:51 04/13/2016 16:41:50 Edema of lower extremity 887446844 R60.0 Will monitor. Arthritis 2618993 M19.17 2 Reviewed MRI results with the pt. Discussed surgical tx. f/u prn Osteoarthr itis of knee 905361055 M17.0 Discussed the r/b/a of Left TKA as well as the post-opera tive and recovery period. Explained to the patient that b/l TKA has increased risks and complicati ons, and advised pt to start with more painful knee before proceeding with the other at a later time. Rx: norco. Tentative surgery date: 05/07/16. F/u for 1st post-op appointmen t on 05/25/16. patient encouraged to go to pre op knee replacemen t coaching/c lass with his . [id number] VIOLETA WEST MD [facility] [address] [facility] [address] [place] [address] 05/25/2016 09:16:59 05/25/2016 10:15:43 Osteoarthritis of knee 960709467 M17.0 Discussed the r/b/a of Left TKA as well as the post-opera tive and recovery period. Explained to the patient that b/l TKA has increased risks and complicati ons, and advised pt to start with more painful knee before proceeding with the other at a later time. Will call pt to schedule tentative sx date in June. F/u for 1st post-op appointmen t. patient encouraged to go to pre op knee replacemen t coaching/c lass with his . Edema of l ower extremity [id number] R60.0 Will monitor. Arthritis 6781227 M19.17 2 Reviewed MRI results with the pt. Discussed surgical tx. f/u prn [id number] ABDIRASHID CHRISTIE MD [address] [place] [address] 09/21/2018 14:15:25 09/21/2018 15:52:09 Coronary arteriosclerosis 72659873 I25.10 Review diagnosis and care plan. Discuss cardiac rehab post CABG and he wants to do that in [place] as he is going back there soon. Discuss risk modificati on. FU in 6mo when he returns to [place] for the next season. Advise to see his local cardiologi st when he gets back to [place]. 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 Recent loss blood pressure at his physical therapy (80/50), and tolerates current medication s with acceptable blood pressure. Essential hypertension 42598873 I10 Continue to take current medication s, encourage to stay physically active as tolerate. Hyperlipidemia 07328272 E78.2 Continue medication , advise to bring a copy of the latest lab to the next OV when he has it done with his PCP for review. Overweight 545417084 E66 .3 Review weight reduction strategy, encouragem ent and support provided. Congestive heart failure 01984602 I50.9 Stable with medication s and to continue. Review risk of CHF exacerbati on. [id number] ABDIRASHID CHRISTIE MD [address] [place] [address] 10/18/2018 08:31:31 10/18/2018 10:12:23 Hyperlipidemia 53357919 E78.2 Tolerates atorvastat in and to continue. Encourage to bring a copy of the latest lab result to the next OV. Essential hypertension 37227444 I10 Continue to take current medication s, encourage to stay physically active as tolerate. Coronary arteriosclerosis 58927696 I25.10 Stable with medication s to continue metoprolol and furosemide . Discuss risk modificati on. Discuss cardiac rehab in [place] when he is back home. FU in 6mo when he returns to [place] for the next winter. ECG today shows sinus rhythm, will stop amiodarone . Generalize d ischemic myocardial dysfunction 718819716 I25.5 Stable with medication s to continue metoprolol and furosemide . Congestive heart failure 87349660 I50.9 Review risk of CHF exacerbati on. Continue furosemide . Monitor. Overweight 388853657 E66 .3 Review weight reduction strategy, encouragem ent and support provided. Edema of l ower extremity 441271903 R60.0 New findings, will send for leg US to screen for DVT. Will call with result and advice. [id number] ABDIRASHID CHRISTIE MD [address] [place] [address] 04/18/2019 11:05:27 04/18/2019 12:41:18 Congestive heart failure 08070968 I50.9 Stable without over fluid retention. Continue furosemide . Monitor. Hyperlipidemia 59468660 E78.2 He has stopped atorvastat in due to leg cramp. Restart at lower dose of 10mg qd with coq10. Essential hypertension 92292354 I10 Blood pressure is acceptable and to continue medication s, encourage to stay physically active as tolerate. Coronary arteriosclerosis 50663723 I25.10 Stable without episodes and to continue monitor. Discuss risk modificati on. FU in 6mo. Generalize d ischemic myocardial dysfunction 822189272 I25.5 Stable, continue furosemide . Repeat echocardio gram to assess LVEF, will call with result and advice. Overweight 163338878 E66 .3 Review weight reduction strategy, encouragem ent and support provided. Pain in right knee 16193 58557 28486 M25.[address] Lopez, cardiac clearance letter sent via [employer]. [id number] ABDIRASHID CHRISTIE MD [address] [facility] [address] [place] [address] 08/01/2019 11:12:20 08/01/2019 12:09:55 Coronary arteriosclerosis 15230002 I25.10 Stable with ASA and to continue medication and monitor. Preop ECG today shows sinus rhythm with PVCs and acceptable heart rate. Discuss risk modificati on. FU in 6mo. Congestive heart failure 70221922 I50.9 Stable with acceptable blood pressure and no signs of fluid retention, review risk of CHF exacerbati on. Continue furosemide prn. Monitor. Essential hypertension 27239973 I10 Blood pressure is stable and to continue medication s. Encourage to stay physically active as tolerate. Hyperlipidemia 73355540 E78.2 Tolerates low dose of atorvastat in with coq10 and to continue. Repeat lab annually. Generalize d ischemic myocardial dysfunction 131012485 I25.5 Stable, monitor. Overweight 689385566 E66 .3 Review weight reduction strategy, encouragem ent and support provided. Pain in right knee 62162 71979 19162 M25.[address] Lopez, cardiac clearance letter sent via [employer]. [id number] SOFI HEART MD [address] [place] [address] 04/03/2021 08:47:23 04/03/2021 09:48:13 Abdominal aortic aneurysm without rupture 02858341 I71.4 Status post endovascul ar repair. Overall progressin g satisfacto rily. Slight erythema in the vicinity of the groin incisions. There appears to be no marley evidence of infection. However given the insertion of a aortic endograft the patient is going to be placed prophylact ically on doxycyclin e for 1 week. He will continue with localized wound care. Follow-up in 1 week for staple removal. Also he is to be scheduled 4 to 6 weeks from the procedure for a baseline CTA [id number] SOFI HEART MD [address] [place] [address] 04/13/2021 14:04:32 04/13/2021 15:31:55 Abdominal aortic aneurysm without rupture 85515646 I71.4 Status post endovascul ar repair. Overall progressin g satisfacto rily. [place] were removed. Patient at this point is cleared to resume all of his physical activities . Within the next 2 to 4 weeks a baseline CTA of the abdomen pelvis will be obtained. Depending those findings further recommenda tions will follow [id number] ABDIRASHID CHRISTIE MD [address] [place] [address] 04/24/2021 11:26:37 04/24/2021 12:24:04 Coronary arteriosclerosis 24496919 I25.10 Stable without episodes. Discuss risk modificati on. Congestive heart failure 23302794 I50.9 Stable with medication s, review risk of CHF exacerbati on. Essential hypertension 09852916 I10 Blood pressure is stable and to continue medication s. Encourage to stay physically active as tolerate. Hyperlipidemia 35565949 E78.2 Tolerates low dose of atorvastat in with coq10 and to continue. Repeat lab annually. Generalize d ischemic myocardial dysfunction 453657556 I25.5 Will repeat echocardio gram. Continue medication s. FU in 2 m, consider AICD if EF is still low. Overweight 093752354 E66 .3 Review weight reduction strategy, encouragem ent and support provided. [id number] ABDIRASHID CHRISTIE MD [address] [place] [address] 07/01/2021 16:00:14 07/01/2021 17:40:07 Hyperlipidemia 61441449 E78.2 Stable and to continue medication s. Repeat lab annually. Essential hypertension 26495129 I10 Blood pressure is good, monitor. Encourage to stay physically active as tolerate. Coronary arteriosclerosis 94394071 I25.10 Stable as he tolerates daily physical activities . Review and encourage to report back if having sxs. Discuss risk modificati on. FU in 3m. Congestive heart failure 27461475 I50.9 Stable edema, continue monitor, review risk of CHF exacerbati on. Generalize d ischemic myocardial dysfunction 275392087 I25.5 Result of the echocardio gram reviewed, EF 38%, continue current medication s. Overweight 393386321 E66 .3 Review weight reduction strategy, encouragem ent and support provided. Health Concerns Section Related Observation LastModified by Organization Detai ls LastModified Time None Recorded Concern Status LastModified by Organization Details LastModified Time None Recorded Advance Directives Directive None Recorded Payers Insurance Date Sequence Insurance Name Policy Number Policy [place] Covered Member ID [place] Member ID Guarantor Name 09/13/2024 1 [place] José Basurto [id number] José Basurto 05/21/2023 2 [employer] (MEDICARE SUPPLEMENT) José Basurto [id number] José Basurto 05/21/2023 2 INTERFACE REVIEW REQUIRED José Basurto [id number] José Basurto 05/21/2023 2 [employer] - LOCAL 150 (SECONDARY) José Basurto [id number] José Basurto Notes Date Note Type Note Provider Name and Address Organization Details Recorded Time 08/01/2019 text/html Mr Basurto comes in for follow up of CAD s/p CABG 3 vessel in 08/2018, ischemic cardiomyopathy, CHF, HTN, HLD and overweight. Had a successful knee surgery with good result and no pain without cardiac complications. He now needs to have the left knee surgery due to pain, uses a cane to walk, no chest pain, no palpitations or dizziness, some shortness of breath at baseline. Weight is stable. ABDIRASHID CHRISTIE MD [address], [place], [address], [address] 08/01/2019 12:09:45 04/03/2021 text/html Patient is a 76-year-old gentleman who approximately a week ago underwent an endovascular peripheral infrarenal abdominal aortic aneurysm. Appears to be doing well. However he did develop some erythema at the site of the groin incisions. No fevers no chills. Slight clear drainage. No foul order. No purulence. Some difficulty ambulating due to overall debility. SOFI HEART MD [address] [place] [address], [address], [address] 04/03/2021 10:09:26 04/13/2021 text/html Patient is a 76-year-old gentleman who approximately 2 weeks ago underwent an endovascular repair of an infrarenal abdominal aortic aneurysm. Appears to be doing well. He developed some erythema at the left groin. He was placed on a short course of doxycycline. Returns now for follow-up. Appears to be doing well. No fevers no chills. No incision dehiscence. No drainage. He does complain of constipation. SOFI HEART MD [address] [place] [address], [phone], [address] 04/13/2021 17:05:53 04/24/2021 text/html Mr Basurto comes in for follow up of CAD s/p CABG 3 vessel in 08/2018, ischemic cardiomyopathy, CHF, HTN, HLD and overweight. Shortness of breath and limited walking, weight is stable, edema is stable. No palpitations. ABDIRASHID CHRISTIE MD [address], [place], [address], [address] 04/24/2021 12:27:46 07/01/2021 text/html Mr Basurto comes in for follow up of CAD s/p CABG 3 vessel in 08/2018, ischemic cardiomyopathy, CHF, HTN, HLD and overweight. Stable shortness of breath, walks daily using a cane, tolerates ok with slow pace, edema is stable, had echocardiogram done with result reviewed. He is not sure what medications he is taking at home. ABDIRASHID CHRISTIE MD [address] [facility], [place], [address], [facility] [place] 07/01/2021 17:19:37
--- OUTSIDE RECORDS SUMMARY | 2024-11-16 13:07 | XMS_ITS | Clinical Summary ---
Author Organization [facility] Address [address] [place] [address] Care Team Providers Care Supervisor Cigarette Making Department Name Role Phone Peyton Alan DO Primary Care Provider [phone] Allergies No known active allergies Active Problems Problem Noted Date Diagnosed Date Bilateral arm weakness 06/09/2022 Immunizations Immunization Administration Dates Next Due Influenza, High Dose Seasonal, Preservative Free 02/02/2021 Moderna SARS-CoV-2 Vaccination 08/28/2020,2020 Pneumococcal Conjugate PCV 13 08/19/2018 Pneumococcal Polysaccharide PPSV23 02/02/2021 Tdap 05/13/2020,04/17/2020 Family History Medical History Relation Name Comments Cancer Father Cancer Mother Relation Name Status Comments Father Mother Social History Tobacco Use Types Packs/Day Years Used Date Smoking Tobacco: Never Assessed Sex and Gender Information Value Date Recorded Sex Assigned at Not on file Legal Sex Male 9:31 PM EDT Gender Identity Not on file Sexual Orientation Not on file Last Filed Vital Signs Vital Sign Reading Time Taken Comments Blood Pressure 113/70 02/02/2021 2:08 PM EDT Pulse 81 02/02/2021 2:08 PM EDT Temperature - - Respiratory Rate 12 08/04/2020 8:38 AM EST Oxygen Saturation - - Inhaled Oxygen Concentration - - Weight 98.2 kg (216 lb 7.9 oz) 04/10/2020 1:18 A M EST Height 175 cm (5' 8.9 ) 02/02/2021 2:08 PM EDT Body Mass Index 32.81 04/09/2020 10:10 AM EST Plan of Treatment Health Maintenance Due Date Last Done Comments Zoster Vaccines (2 of 2) 04/03/2021 02/06/2021 Medicare Annual Wellness (AWV) 11/14/2022 10/15/2021 COVID-19 Vaccine ( season) 2024 05/04/2021, 08/28/2020, 07/31/2020 Influenza Vaccine (Season Ended) 2025 02/24/2022, 02/02/2021, 03/16/2020, Additional history exists Pneumococcal Vaccine: 65+ Years Completed 02/02/2021, 08/19/2018 HIB Vaccines Aged Out No longer eligi ble based on patient's age to complete this topic HPV Vaccines Aged Out No longer eligi ble based on patient's age to complete this topic Hepatitis A Vaccines Aged Out No long er eligible based on patient's age to complete this topic Hepatitis B Vaccines Aged Out No long er eligible based on patient's age to complete this topic IPV Vaccines Aged Out No longer eligi ble based on patient's age to complete this topic Meningococcal B Vaccine Aged Out No l onger eligible based on patient's age to complete this topic Meningococcal Vaccine Aged Out No magaly mery eligible based on patient's age to complete this topic Rotavirus Vaccines Aged Out No longer eligible based on patient's age to complete this topic Insurance MEDICARE [facility] OTHER GENERIC COMMERCIAL Care Teams Supervisor Cigarette Making Department Relationship Specialty Start Date End Date Peyton Alan DO [address] [place], [place] [id number] PCP - General 05/13/20
--- OUTSIDE RECORDS SUMMARY | 2024-11-16 13:07 | XMS_ITS | Data Portability ---
Author Organization [place] - [employer], [employer], [facility] Address [address] [place] [address] Care Team Providers Care Head Of Stock Name Role Phone CAMERON YAP Primary Care Provider [phone] CAMERON YAP Referring Provider [phone] FRANCISCO WOODY Referring Provider [phone] Assessment Encounter Date Assessment Date Assessment LastModified by Organization Details LastModified Time 08/20/2015 08/20/2015 cough keeping pt awake- will give meds to use at bedtime tcalamari Not available 08/20/2015 11:32:17 Plan of Treatment Reminders Order Date Submit Date Provider Last Modified By Organization Details Last Modified Time Details Appointments None recorded. Lab None recorded. Referral None recorded. Procedures None recorded. Surgeries None recorded. Imaging None recorded. Medication Orders Zithromax Z-Du 250 mg tablet 2015 016 tcal[facility]ari [id number], [address] [place], [address], 6 11:32:17 Cheratussi n AC 10 mg-100 mg/5 mL oral liquid 2015 016 tcalamari [id number], [address] [place], [address], 6 11:32:17 ceftriaxon e 1 gram solution for injection 2015 016 tcalamari Not available 6 11:32:17 Patient TargetsNo targets recorded. Patient Instructions Encounter Date Encounter Id Patient Instructions Last Modified By Organization Details Last Modified Time 08/20/2015 [id number] bronchitis: care instructions tcalamari Not available 08/20/2015 11:32:17 bronchial infection. Recommend to use Mucinex max strength during the day. Fluids. To start antibiotics tomorrow since you got the shot here Use the robitussin with codeine to use at bedtime- 2 teaspoons zyrtec daily to dry up the post nasal drainage Return to the clinic if not better or if worsened symptoms tcalamari Not available 08/20/2015 09:30:15 Reason for Referral None Reported. Problems Name Problem SNOMED Code Status Onset Date Resolution Date Notes Provider Name and Address Organization Details Recorded Time Hypertensive disorder 30773600 Active Elsa Gabriel [facility], [employer] 6 08:24:26 Problem Notes None recorded. Procedures Surgical History Date Name Laterality Status Provider Name and Address Organization Details Recorded Time 5 [facility] 08/20/2015 08:23:02 Imaging Results None recorded. Procedure Notes None recorded. Medical Equipment None Reported. Allergies No known drug allergies Medications Name Sig Start Date Stop Date Status Note LastModified by Organization Details LastModified Time Santyl 250 unit/gram topical ointment active Not Available Not Available Not Available prednisone 10 mg tablet active Not Available Not Available No t Available azithromycin 250 mg tablet TAKE TWO TABLETS BY MOUTH ON DAY 1, THEN TAKE ONE TABLET EVERY DAY ON DAYS 2-5 active Not Available Not Available No t Available benzonatate 200 mg capsule active Not Available Not Availab le Not Available ondansetron HCl 8 mg tablet active Not Available Not Available Not Available prednisone 20 mg tablet active Not Available Not Available No t Available clobetasol 0.05 % topical cream active Not Available Not Available Not Available amlodipine 5 mg tablet active Not Available Not Available No t Available hydrocodone 10 mg-acetaminoph en 325 mg tablet active Not Available Not Available Not Available alprazolam 0.5 mg tablet active Not Available Not Available No t Available ceftriaxone 1 gram solution for injection 2015 active 1GM given IM Not Available Not Available Not Available amlodipine 10 mg tablet Take 1 tablet every day by oral route. active Not Available Not Available No t Available Guaifenesin AC 10 mg-100 mg/5 mL oral liquid TAKE 10 ML BY MOUTH AT BEDTIME NEEDED active Not Available Not Available No t Available Advair Diskus 250 mcg-50 mcg/dose powder for inhalation active Not Available Not Available N ot Available hydrocodone-ho matropine 5 mg-1.5 mg/5 mL oral solution active Not Available Not Availabl e Not Available mupirocin calcium 2 % topical cream active Not Available Not Availabl e Not Available omeprazole 20 mg capsule,delaye d release active Not Available Not Available No t Available mupirocin 2 % topical ointment active Not Available Not Available Not Available levofloxacin 500 mg tablet active Not Available Not Availabl e Not Available zolpidem 10 mg tablet active Not Available Not Available Not Available escitalopram 10 mg tablet active Not Available Not Available Not Available metoprolol tartrate 25 mg tablet active Not Available Not Available Not Available Lyrica 100 mg capsule active Not Available Not Available Not Available zolpidem ER 12.5 mg tablet,extende d release,multip hase active Not Available Not Available Not Available Voltaren 1 % topical gel active Not Available Not Available Not Available Vitals Date Recorded Oxygen saturation Oxygen saturation in Arterial blood by Pulse oximetry Body mass index (BMI) Body temperature Body weight Heart rate Body height Systolic blood pressure Diastolic blood pressure Provider Name and Address Organization Details Last Updated DateTime 6 96 % 96 % 33.4 kg/m2 98.1 [degF] 010017. 52302 g 71 /min 175.26 cm 140 mm[Hg] 60 mm[Hg] [facility] 6 08:49:28 Social History Question Answer Notes LastModified by [employer] Details LastModified Time Tobacco Smoking Status Current Every Day Smoker Elsa [facility] 08/20/2015 08:24:26 Which Illicit Or Recreational Drugs Have You Used? Denies Information not available 08/20/2015 Alcohol Use No Information n ot available 08/20/2015 Marital Status Informatio n not available 08/20/2015 How Much Tobacco Do You Smoke? 1 PPD Information not available 08/20/2015 How Many Years Have You Smoked Tobacco? 35 Information not available 08/20/2015 Sex: Unknown Functional Status Question Answer Note LastModified by Organizat ion Details LastModified Time What is your exercise level? Occasional Information not available 08/20/2015 Mental Status None recorded. Family History Relationship Description Onset Age of this Age Resolved Age Notes LastModified by Organization Details LastModified Time Mother Old-age 96 tcalamari Not available 08/20/2015 09:17:58 Father Myocardial infarction 53 tcalamari Not available 08/19 09:17:58 Medical History Condition Response Emphysema/COPD Y Arthritis Y High blood pressure Y Back pain Y Past Encounters Encounter ID Performer Location Encounter Start Date Encounter Closed Date Diagnosis/Indication Diagnosis SNOMED-CT Code Diagnosis ICD10 Code Diagnosis Note [id number] ROSHAN Temple [facility] [address] [place] [address] 08/20/2015 08:01:06 08/20/2015 09:34:57 Acute bronchitis 64664617 J20.9 Health Concerns Section Related Observation LastModified by Organization Detai ls LastModified Time None Recorded Concern Status LastModified by Organization Details LastModified Time None Recorded Advance Directives Directive None Recorded Payers Insurance Date Sequence Insurance Name Policy Number Policy [place] Covered Member ID [place] Member ID Guarantor Name 08/20/2015 2 [employer] (MEDICARE SUPPLEMENT) José Basurto [id number] José Basurto 04/07/2020 1 [place] Jsoé Basurto Jr [id number] José Basurto 08/20/2015 2 [place] José Basurto Jr [id number] José Basurto Notes Date Note Type Note Provider Name and Address Organization Details Recorded Time 08/20/2015 text/html Cough / ColdReported bypatient.Reason for visit:acute complaint Quality:productive ;deep;hacky Sputum Quality:yellow;whi te Severity:moderate Duration:intermitt ent Onset/Timin days ago Alleviating factors:nothing helps Aggravating factors:lying down Associated Symptoms:congestio n;cold/flu like symptoms;sore throat(last night); no fever; no post nasal drip ROSHAN Temple [address] [facility] [address], [place], [address], [facility] - [facility] 08/20/2015 11:32:23
[2024-11-16] MEDS: IRBESARTAN 75MG TABLET 75 MG PO (14:51)
[2024-11-16] MEDS: METOPROLOL SUCCINATE XL 25MG TABLET 25 MG PO (14:51)
[2024-11-16] MEDS: ASPIRIN EC 81MG TABLET 81 MG PO (14:51)
[2024-11-16] MEDS: NICOTINE 21MG/24HR PATCH 21 MG TD (17:02)
[2024-11-16 17:44] LABS: Microscopic, Urine URINE MICROSCOPIC (MICROSCOPIC)
--- NOTE | 2024-11-16 17:45 | PC.NURSE ---
a&ox4. tolerating ra w/ sats >90%. Pt has 3+ pitting edema in BLE. Pt has had 3000 ml of UOP since 0000 11/16. diuretics given per aug. Pt has been Afib with Bradycardia and a BBB on tele. pt did have a bm this shift. ambulatory to BR with walker and standby assistance. call light is within reach. no needs at this time.
[2024-11-16 18:00] LABS: Appearance,Urine CLEAR (Clear); Bilirubin,Urine Negative (Negative); Blood, Urine Negative (Negative); Color,Urine YELLOW (Yellow); Glucose,Urine (UA) Negative (Negative); Ketones,Urine Negative (Negative); Leukocyte Esterase,Urine Negative (Negative); Nitrate,Urine Negative (Negative); Protein,Urine Negative (Negative); Urobilinogen,Urine 0.2 EU/dl (0.2)
[2024-11-16 18:38] LABS: Amorphous Sediment,Urine Trace /lpf; Bacteria,Urine 1+ /lpf; RBC,Urine Occasional #/hpf (0-3); Squamous Epithelial Cell,Urine Occasional #/hpf (0-5)
[2024-11-16] MEDS: ATORVASTATIN 40MG TABLET 80 MG PO (20:28)
--- NOTE | 2024-11-16 21:50 | P.PN_ITS ---
Subjective *Date: 11/16/24 *Time: 21:50 Exam Data for Last 24 hours Vital signs and Labs for Last 24 Hours: Temp Pulse Resp BP Pulse Ox O2 Del Method O2 Flow Rate 98.6 F 52 L 18 110/53 L 98 Room Air 2 11/16/24 19:58 11/16/24 20:00 11/16/24 20:00 11/16/24 19:58 11/16/24 20:00 11/16/24 21:00 11/16/24 19:58 Laboratory Results - last 24 hr 11/15/24 23:00: WBC 9.7, RBC 4.56 L, Hgb 12.4 L, Hct 38.1 L, MCV 83.6, MCH 27.2, MCHC 32.5, RDW 18.5 H, Plt Count 162, MPV 11.3 H, Neut % (Auto) 75.3, Lymph % (Auto) 11.6, Reeves % (Auto) 8.0, Eos % (Auto) 3.4, Baso % (Auto) 0.9, Neut # (Auto) 7.3, Lymph # (Auto) 1.1, Reeves # (Auto) 0.8, Eos # (Auto) 0.3, Baso # (Auto) 0.1, PT 12.3, INR 1.12 H, Sodium 139, Potassium 3.4 L, Chloride 104, Carbon Dioxide 31 H, Anion Gap 7.4, BUN 32 H, Creatinine 1.10, Estimated GFR 64, Est GFR ( Amer) 78, Glucose 103 H, Lactate 1.0, Calcium 10.1, Magnesium 1.8, Total Bilirubin 0.8, AST 38, ALT 27, Alkaline Phosphatase 149 H, Troponin I 0.09 H, NT-Pro-B Natriuret Pep 8700 H, Total Protein 6.6, Albumin 3.6, Globulin 3.0, Albumin/Globulin Ratio 1.2, Triglycerides 64, Cholesterol 139 L, LDL Cholesterol Direct 87.93 L, VLDL Cholesterol 13, HDL Cholesterol 27 L, Cholesterol/HDL Ratio 5.1 H 11/16/24 07:25: Hemoglobin A1c 5.6, Troponin I 0.08 H, NT-Pro-B Natriuret Pep 8510 H 11/16/24 17:40: Urine Color Yellow, Urine Appearance Clear, Urine pH 7.0, Ur Specific Thornton 1.010, Urine Protein Negative, Urine Glucose (UA) Negative, Urine Ketones Negative, Urine Blood Negative, Urine Nitrate Negative, Urine Bilirubin Negative, Urine Urobilinogen 0.2, Ur Leukocyte Esterase Negative, Urine RBC Occasional, Urine WBC 3-5, Ur Squamous Epith Cells Occasional, Amorphous Sediment Trace, Urine Bacteria 1+ Temp Pulse Resp BP Pulse Ox O2 Del Method O2 Flow Rate 98.1 F 74 18 144/76 H 97 Room Air 2 11/16/24 08:00 11/16/24 08:00 11/16/24 08:00 11/16/24 08:00 11/16/24 08:00 11/16/24 09:00 11/15/24 22:35 Laboratory Results - last 24 hr 11/15/24 23:00: WBC 9.7, RBC 4.56 L, Hgb 12.4 L, Hct 38.1 L, MCV 83.6, MCH 27.2, MCHC 32.5, RDW 18.5 H, Plt Count 162, MPV 11.3 H, Neut % (Auto) 75.3, Lymph % (Auto) 11.6, Reeves % (Auto) 8.0, Eos % (Auto) 3.4, Baso % (Auto) 0.9, Neut # (Auto) 7.3, Lymph # (Auto) 1.1, Reeves # (Auto) 0.8, Eos # (Auto) 0.3, Baso # ( Auto) 0.1, PT 12.3, INR 1.12 H, Sodium 139, Potassium 3.4 L, Chloride 104, Carbon Dioxide 31 H, Anion Gap 7.4, BUN 32 H, Creatinine 1.10, Estimated GFR 64, Est GFR ( Amer) 78, Glucose 103 H, Lactate 1.0, Calcium 10.1, Magnesium 1.8, Total Bilirubin 0.8, AST 38, ALT 27, Alkaline Phosphatase 149 H, Troponin I 0.09 H, NT-Pro-B Natriuret Pep 8700 H, Total Protein 6.6, Albumin 3.6, Globulin 3.0, Albumin/Globulin Ratio 1.2, Triglycerides 64, Cholesterol 139 L, LDL Cholesterol Direct 87.93 L, VLDL Cholesterol 13, HDL Cholesterol 27 L, Cholesterol/HDL Ratio 5.1 H 11/16/24 07:25: Hemoglobin A1c 5.6, Troponin I 0.08 H, NT-Pro-B Natriuret Pep 8510 H I & O for Last 24 hours: Intake & Output 11/13/24 11/14/24 11/15/24 11/16/24 23:59 23:59 23:59 23:59 Intake Total 960 / 960 Output Total 1150 / 1150 4500 / 4500 Balance -1150 / -1150 -3540 / -3540 Weight 109.633 kg 109.6 kg Intake & Output 11/13/24 11/14/24 11/15/24 11/16/24 23:59 23:59 23:59 23:59 Intake Total 360 / 360 Output Total 1150 / 1150 1100 / 1100 Balance -1150 / -1150 -740 / -740 Weight 241 lb 11.2 oz Constitutional Constitutional: no acute distress and cooperative *Routine HEENT Exam Eye: Present PERRL *Routine Respiratory Exam Respiratory: Present CTA bilaterally; Absent accessory muscle use, wheezes or crackles *Routine Cardiovascular Exam Cardiovascular: Present RRR, Normal S1 and Normal S2; Absent murmur, gallop or rubs *Routine Abdominal Exam Abdominal: Present soft; Absent tenderness *Routine Extremities Exam Extremities: Present edema and pulses intact; Absent cyanosis Comments: Severe bilateral lower extremity edema with erythema noted thigh-high *Routine Skin Exam Skin: Present intact; Absent erythema or wounds *Routine Neurological Exam Neurological: Present alert and oriented X3 Routine Psychiatric Exam Psychiatric: Present cooperative Assessment and Plan *Assessment and plan (1) Acute CHF: Status: Acute Category: Medical Code(s): I50.9 - Heart failure, unspecified (2) Elevated troponin: Status: Acute Category: Medical Code(s): R79.89 - Other specified abnormal findings of blood chemistry Plan Patient is a 79-year-old male with past medical history of CHF, who presents to the hospital due to complaints of bilateral lower extremity swelling as well as elevated troponin. Patient presented as a transfer from outside facility, patient was noted to have elevated troponin and was sent to [facility] for cardiology evaluation. Cardiology was called from the outside facility and recommended transfer. Patient otherwise denied active chest pain, he mentions he has been having shortness of breath as well as bilateral lower extremity edema. Patient denied fevers chills nausea vomiting diarrhea constipation dysuria. Assessment and plan Shortness of breath, bilateral lower extremity edema likely secondary to acute CHF #NSTEMI Ordered echocardiogram Increased IV Lasix 80 mg twice daily Consult cardiology, recommend diuresing over the weekend and possible heart cath on Tuesday. However, states patient will likely refuse. Will reevaluate tomorrow. Monitor on cardiac telemetry Elevated troponin Order echocardiogram Consult cardiology Rule out ACS Chronic medical conditions Hypertension Hyperlipidemia Resume home medications when medication list is updated DVT prophylaxis-heparin
[2024-11-16] MEDS: ONDANSETRON 4MG/2ML VIAL 4 MG IV (22:45)
[2024-11-17] VITALS (7 sets, daily range): BP systolic 97–115; BP diastolic 54–64; PULSE 50–70; RESP 13–21; TEMP 36.3–37; O2SAT 93–97; BMI 33.5
--- NOTE | 2024-11-17 04:30 | PC.NURSE ---
Patient is alert and oriented x4. He was observed to have eyes closed, respirations even and unlabored, and no apparent distress throughout the majority of the night. Patient has remained on 2 L of oxygen via nasal cannula during resting periods to maintain oxygen saturations > 90%. Lung sounds diminished upon auscultation, heart rate irregular. Afib/BBB/PVCs on telemetry. Bilateral lower extremities were assessed; no weeping or moisture was noticed. However, redness and swelling was observed (+ 2 edema in left leg, +3 edema in right leg). Both legs were elevated with pillows. Scattered scabs noted to upper forehead and back of neck areas, left lower forearm skin tear remains dressed with a band-aid (clean, dry, intact). No reports of chest pain. A male purewick remains in place for monitoring urine output (documented accordingly). Patient ambulates with standby assistance + use of a walker in his room/to the bathroom. Scheduled medications administered per AUG. Zofran was given once for nausea; reported relief was given by the patient post-administration. At this time, the patient is resting in bed without any further complaints. No new needs thus far. Call light within reach.
[2024-11-17 06:53] LABS: Lactate Venous 1.6 mmol/L (0.4-2.0); VBG Base Excess 4.7 mmol/L (-2.4-2.3); VBG PCO2 52.8 mmol/L (35-51); VBG PH 7.37 mmol/L (7.31-7.41); VBG PO2 51.7 mmol/L (28-40); VBG Total CO2 31.6 mmol/L (23-27)
[2024-11-17 07:10] LABS: Basophils # 0.1 K/mm3 (0-0.2); Basophils % 0.6 % (0.1-2.0); Eosinophils # 0.3 Kmm3 (0.0-0.4); Eosinophils % 4.3 % (0.1-12.0); Hematocrit 38.6 % (42.0-52.0); Hemoglobin 12.1 g/dL (14.1-18.0); Immature Granulocytes # 0.04 10^3uL; Immature Granulocytes % 0.5 %; Lymphocytes # 0.9 K/mm3 (0.7-4.5); Lymphocytes % 10.9 % (10-50); Mean Corpuscular HGB Conc 31.3 g/dL (31.8-35.4); Mean Corpuscular Hemoglobin 26.7 pg (27.0-31.2); Mean Platelet Volume 11.8 fl (7.4-10.4); Monocytes # 0.8 K/mm3 (0.1-1.0); Monocytes % 9.5 % (1.7-9.3); Neutrophils # 5.8 K/mm3 (1.8-7.8); Neutrophils % 74.2 % (37.0-80.0); Nucleated Red Blood Cells # 0 10^3/uL; Nucleated Red Blood Cells % 0 %; Platelet Count 162 K/mm3 (142-424); Red Blood Count 4.54 M/mm3 (4.60-6.20); Red Cell Distribution Width 18.7 % (11.5-17.5); Red Cell Distribution Width-SD 57.3 fL; White Blood Count 7.9 K/mm3 (4.8-10.8)
[2024-11-17 07:16] LABS: Chol/HDL Ratio 5.6 (1-3.5); Cholesterol 134 mg/dl (140-200); HDL Cholesterol 24 mg/dl (40-60); Triglycerides 74 mg/dl (30-150); VLDL Cholesterol 15 mg/dL (0-40)
[2024-11-17 07:20] LABS: Albumin Level 3.4 g/dl (3.5-5.0); Chloride 109 mmol/L (98-107); Potassium 3.5 mmoL/L (3.5-5.1); Sodium 144 mmol/L (136-145)
[2024-11-17 07:22] LABS: Blood Urea Nitrogen 36 mg/dl (9-20); Creatinine Clearance Estimated 68 mL/min (50-200); Estimated Glomerular Filt Rate 53 ml/min (>60); GFR (African American) 64 ML/MIN (>60)
[2024-11-17 07:23] LABS: Alanine Aminotransferase 21 U/L (12-78); Albumin/Globulin Ratio 1.1 (1.1-1.8); Alkaline Phosphatase 118 U/L (38-126); Anion Gap 5.5 mEq/L (5-15); Aspartate Amino Transferase 34 U/L (17-59); Calcium 8.8 mg/dl (8.4-10.2); Carbon Dioxide 33 mmol/L (22.0-30.0); Glucose 96 mg/dl (74-100); Total Protein,Serum 6.4 g/dl (6.3-8.2)
[2024-11-17 07:27] LABS: Direct LDL Cholesterol 86.91 mg/dL (100-129)
[2024-11-17] MEDS: FUROSEMIDE 100MG/10ML VIAL 80 MG IV ×2 (08:24→16:29)
[2024-11-17] MEDS: ENOXAPARIN 40MG/0.4ML SYRINGE 40 MG SUBCUT (08:24)
[2024-11-17] MEDS: NICOTINE 21MG/24HR PATCH 21 MG TD (08:24)
[2024-11-17] MEDS: IRBESARTAN 75MG TABLET 75 MG PO (08:24)
[2024-11-17] MEDS: DULOXETINE 30MG CAPSULE.DR 60 MG PO (08:25)
[2024-11-17] MEDS: METOPROLOL SUCCINATE XL 25MG TABLET 25 MG PO (08:25)
[2024-11-17] MEDS: PREGABALIN 100MG CAPSULE 200 MG PO ×2 (08:25→21:04)
[2024-11-17] MEDS: ASPIRIN EC 81MG TABLET 81 MG PO (08:25)
[2024-11-17] MEDS: BELLADONNA ALKALOIDS 60 ML ML PO (12:17)
[2024-11-17] MEDS: SPIRONOLACTONE 25MG TABLET 25 MG PO (12:23)
--- NOTE | 2024-11-17 14:57 | PC.NURSE ---
Aox 4, up with assistance times one, on 02-2L nc, pt and ot following, cardiac diet, 20g L AC SL, purewick in place and bed alarm active.
--- NOTE | 2024-11-17 15:36 | HMH.PTEV ---
Physical Therapy Evaluation Rehab PT IP Evaluation Start: 11/17/24 11:57 Freq: ONCE Status: Active Protocol: Document 11/17/24 15:16 LUPILLO (Rec: 11/17/24 15:22 LUPILLO Desktop) Subjective/History History History Per H&P: Patient is an 79-year-old male with past medical history of CHF, who presents to the hospital due to complaints of bilateral lower extremity swelling as well as elevated troponin. Patient presented as a transfer from outside facility, patient was noted to have elevated troponin and was sent to [facility] for cardiology evaluation. Cardiology was called from the outside facility and recommended transfer. Patient otherwise denied active chest pain, he mentions he has been having shortness of breath as well as bilateral lower extremity edema. Patient denied fevers chills nausea vomiting diarrhea constipation dysuria. Subjective Subjective Pt reports he lives with his who care for him as needed. Pt is normally IND with mobility using a RW. Pt lives in a single-story home and is still driving. Pt denies fall in past 60 days. New diagnosis of No cancer in past 12 months? [facility] How much help from another person do you currently need... Turning from your None back to your side while in a flat bed without using bedrails? Moving from lying on A little back to sitting on the side of a flat bed without using bedrails? Moving to and from a None bed to a chair ( including a wheelchair)? Standing up from a None chair using your arms? (e.g., wheelchair, bedside chair) Walking in hospital None room? Climbing 3-5 steps A little with a railing? Mobility Score 22 Mobility Level [facility] Mobility Walk 25 feet or more Mobility Calculator Rehab PT IP Eval Objective Appearance Patient Behavior Appropriate,Cooperative Patient Orientation Person,Situation Difficulty following none instructions Speech Pattern Clear Ambulation Patient Able to Yes Ambulate Ambulation Observation IP General Gait Antalgic Gait,Wide Based Gait Pattern Observation Ambulation Distance 40 (feet) Ambulation Assistive Rolling Walker Device Ambulation Ability Supervision/Stand by Balance Ability to Arise Able, uses arms to help Sitting Balance Steady, safe Standing Balance Steady, wide stance Dynamic Sitting Good Balance Ability Dynamic Standing Good Balance Ability Transfers Bed Transfer Ability Minimal x 1 (25% assist) Sit to Stand Bed Supervision/Stand by Transfer Ability Rehab PT IP prob,goals,plan Problems Date of Evaluation: 11/17/24 PT IP Problems Bed Mobility,Gait,Balance,Self care Rehab Potential Rehab Potential Good Plan PT Intervention Plan Bed Mobility,Transfers,Gait,Balance,Therapeutic Exercise Other Intervention 1-2 times Plan PT Plan Frequency Daily Duration LOS Discharge Goals Bed Transfer Ability Supervision/Stand by Sit to Stand Chair Independent Transfer Ability Discharge Plan PT Discharge Plan Pt is almost at his baseline with his mobility but would benefit from skilled acute care PT to address endurance deficits and prevent functional decline while at [facility]. Pt most appropriate for a d/c home with PT services. Eval Complexity Eval Charge Codes 97839 - Moderate Complexity PHYSICIAN CERTIFICATION: I certify the specified therapy services for José Basurto are required, authorized, and reviewed every 30 days.
--- NOTE | 2024-11-17 18:48 | EXP.PN ---
Subjective *Date: 11/17/24 *Time: 18:48 Interval history: Patient states he feels better today, breathing better. Less fluid on his body. Highly recommended heart cath on Tuesday, patient states he will think about it. Exam Data for Last 24 hours Vital signs and Labs for Last 24 Hours: Temp Pulse Resp BP Pulse Ox O2 Del Method O2 Flow Rate 97.9 F 53 L 16 110/62 93 L Nasal Cannula 2 11/17/24 16:00 11/17/24 16:00 11/17/24 16:00 11/17/24 16:00 11/17/24 16:00 11/17/24 18:26 11/17/24 18:26 Laboratory Results - last 24 hr 11/17/24 06:00: VBG pH 7.37, VBG pCO2 52.8 H, VBG pO2 51.7 H, VBG HCO3 30.0, VBG Total CO2 31.6 H, VBG O2 Saturation 84.0 H, VBG Base Excess 4.7 H, VBG Lactic Acid 1.6 11/17/24 06:25: WBC 7.9, RBC 4.54 L, Hgb 12.1 L, Hct 38.6 L, MCV 85.0, MCH 26.7 L, MCHC 31.3 L, RDW 18.7 H, Plt Count 162, MPV 11.8 H, Neut % (Auto) 74.2, Lymph % (Auto) 10.9, [place] % (Auto) 9.5 H, Eos % (Auto) 4.3, Baso % (Auto) 0.6, Neut # (Auto) 5.8, Lymph # (Auto) 0.9, [place] # (Auto) 0.8, Eos # (Auto) 0.3, Baso # (Auto) 0.1, Sodium 144, Potassium 3.5, Chloride 109 H, Carbon Dioxide 33 H, Anion Gap 5.5, BUN 36 H, Creatinine 1.30 H, Estimated Creat Clear 68, Estimated GFR 53 L, Est GFR ( Amer) 64, Glucose 96, Calcium 8.8, Magnesium 2.0 D, Total Bilirubin 1.0, AST 34, ALT 21, Alkaline Phosphatase 118, Total Protein 6.4, Albumin 3.4 L, Globulin 3.0, Albumin/Globulin Ratio 1.1, Triglycerides 74, Cholesterol 134 L, LDL Cholesterol Direct 86.91 L, VLDL Cholesterol 15, HDL Cholesterol 24 L, Cholesterol/HDL Ratio 5.6 H Temp Pulse Resp BP Pulse Ox O2 Del Method O2 Flow Rate 98.1 F 74 18 144/76 H 97 Room Air 2 11/16/24 08:00 11/16/24 08:00 11/16/24 08:00 11/16/24 08:00 11/16/24 08:00 11/16/24 09:00 11/15/24 22:35 Laboratory Results - last 24 hr 11/15/24 23:00: WBC 9.7, RBC 4.56 L, Hgb 12.4 L, Hct 38.1 L, MCV 83.6, MCH 27.2, MCHC 32.5, RDW 18.5 H, Plt Count 162, MPV 11.3 H, Neut % (Auto) 75.3, Lymph % (Auto) 11.6, [place] % (Auto) 8.0, Eos % (Auto) 3.4, Baso % (Auto) 0.9, Neut # (Auto) 7.3, Lymph # (Auto) 1.1, [place] # (Auto) 0.8, Eos # (Auto) 0.3, Baso # (Auto) 0.1, PT 12.3, INR 1.12 H, Sodium 139, Potassium 3.4 L, Chloride 104, Carbon Dioxide 31 H, Anion Gap 7.4, BUN 32 H, Creatinine 1.10, Estimated GFR 64, Est GFR ( Amer) 78, Glucose 103 H, Lactate 1.0, Calcium 10.1, Magnesium 1.8, Total Bilirubin 0.8, AST 38, ALT 27, Alkaline Phosphatase 149 H, Troponin I 0.09 H, NT-Pro-B Natriuret Pep 8700 H, Total Protein 6.6, Albumin 3.6, Globulin 3.0, Albumin/Globulin Ratio 1.2, Triglycerides 64, Cholesterol 139 L, LDL Cholesterol Direct 87.93 L, VLDL Cholesterol 13, HDL Cholesterol 27 L, Cholesterol/HDL Ratio 5.1 H 11/16/24 07:25: Hemoglobin A1c 5.6, Troponin I 0.08 H, NT-Pro-B Natriuret Pep 8510 H I & O for Last 24 hours: Intake & Output 11/14/24 11/15/24 11/16/2411/17/25 23:59 23:59 23:59 23:59 Intake Total 1060 / 1414 1794 / 1794 Output Total 1150 / 1150 4850 / 4950 1500 / 1500 Balance -1150 / -1150 -3790 / -3536 294 / 294 Weight 109.633 kg 109.6 kg 106.231 kg Intake & Output 11/13/24 11/14/24 11/15/24 11/16/24 23:59 23:59 23:59 23:59 Intake Total 360 / 360 Output Total 1150 / 1150 1100 / 1100 Balance -1150 / -1150 -740 / -740 Weight 241 lb 11.2 oz Constitutional Constitutional: no acute distress and cooperative *Routine HEENT Exam Eye: Present PERRL *Routine Respiratory Exam Respiratory: Present CTA bilaterally; Absent accessory muscle use, wheezes or crackles *Routine Cardiovascular Exam Cardiovascular: Present RRR, Normal S1 and Normal S2; Absent murmur, gallop or rubs *Routine Abdominal Exam Abdominal: Present soft; Absent tenderness *Routine Extremities Exam Extremities: Present edema and pulses intact; Absent cyanosis Comments: Severe bilateral lower extremity edema with erythema noted thigh-high *Routine Skin Exam Skin: Present intact; Absent erythema or wounds *Routine Neurological Exam Neurological: Present alert and oriented X3 Routine Psychiatric Exam Psychiatric: Present cooperative Assessment and Plan *Assessment and plan (1) Acute CHF: Status: Acute Category: Medical Code(s): I50.9 - Heart failure, unspecified (2) Elevated troponin: Status: Acute Category: Medical Code(s): R79.89 - Other specified abnormal findings of blood chemistry Plan Patient is a 79-year-old male with past medical history of CHF, who presents to the hospital due to complaints of bilateral lower extremity swelling as well as elevated troponin. Patient presented as a transfer from outside facility, patient was noted to have elevated troponin and was sent to [facility] for cardiology evaluation. Cardiology was called from the outside facility and recommended transfer. Patient otherwise denied active chest pain, he mentions he has been having shortness of breath as well as bilateral lower extremity edema. Patient denied fevers chills nausea vomiting diarrhea constipation dysuria. Assessment and plan Shortness of breath, bilateral lower extremity edema likely secondary to acute CHF #NSTEMI Ordered echocardiogram Continue IV Lasix 80 mg twice daily Consult cardiology, recommend diuresing over the weekend and heart cath on Tuesday. However, states patient will likely refuse. Patient states he will think about it. Monitor on cardiac telemetry Elevated troponin Order echocardiogram Consult cardiology Rule out ACS Chronic medical conditions Hypertension Hyperlipidemia Resume home medications when medication list is updated DVT prophylaxis-heparin
[2024-11-17] MEDS: ATORVASTATIN 40MG TABLET 80 MG PO (21:04)
[2024-11-18] VITALS: BP 107/62; PULSE 60; PULSE 70; RESP 21; TEMP 36.8; O2SAT 95
[2024-11-18 04:00] VITALS: BP 118/64; PULSE 50; PULSE 60; RESP 16; TEMP 36.7; O2SAT 98; BMI 33.4
--- NOTE | 2024-11-18 05:29 | PC.NURSE ---
Pt is A&Ox4. Pt is tolerating 2L well @ 98%. Pt has rested well this shift. Pt denies pain and needs when asked. Diuresis is ongoing Pt has lost 2 lbs in the past 24 hours.
[2024-11-18 06:27] LABS: Basophils # 0.1 K/mm3 (0-0.2); Basophils % 0.6 % (0.1-2.0); Eosinophils # 0.5 Kmm3 (0.0-0.4); Eosinophils % 4.7 % (0.1-12.0); Hematocrit 37.9 % (42.0-52.0); Immature Granulocytes # 0.06 10^3uL; Immature Granulocytes % 0.6 %; Lymphocytes # 1.3 K/mm3 (0.7-4.5); Mean Corpuscular HGB Conc 31.7 g/dL (31.8-35.4); Mean Corpuscular Hemoglobin 27.1 pg (27.0-31.2); Mean Corpuscular Volume 85.7 fl (80-94); Mean Platelet Volume 11.5 fl (7.4-10.4); Monocytes # 0.9 K/mm3 (0.1-1.0); Monocytes % 9.5 % (1.7-9.3); Neutrophils % 71.6 % (37.0-80.0); Nucleated Red Blood Cells # 0 10^3/uL; Nucleated Red Blood Cells % 0 %; Platelet Count 169 K/mm3 (142-424); Red Blood Count 4.42 M/mm3 (4.60-6.20); Red Cell Distribution Width 18.7 % (11.5-17.5); Red Cell Distribution Width-SD 58.2 fL; White Blood Count 9.8 K/mm3 (4.8-10.8)
[2024-11-18 06:54] LABS: Albumin Level 3.2 g/dl (3.5-5.0); Chloride 107 mmol/L (98-107); Potassium 3.7 mmoL/L (3.5-5.1); Sodium 143 mmol/L (136-145)
[2024-11-18 06:56] LABS: Anion Gap 6.7 mEq/L (5-15); Blood Urea Nitrogen 46 mg/dl (9-20); Carbon Dioxide 33 mmol/L (22.0-30.0); Creatinine Clearance Estimated 63 mL/min (50-200); Estimated Glomerular Filt Rate 49 ml/min (>60); GFR (African American) 59 ML/MIN (>60)
[2024-11-18 06:57] LABS: Alanine Aminotransferase 16 U/L (12-78); Albumin/Globulin Ratio 1.1 (1.1-1.8); Alkaline Phosphatase 120 U/L (38-126); Aspartate Amino Transferase 28 U/L (17-59); Bilirubin,Total 0.5 mg/dl (0.2-1.3); Calcium 8.7 mg/dl (8.4-10.2); Glucose 116 mg/dl (74-100); Total Protein,Serum 6.2 g/dl (6.3-8.2)
[2024-11-18 08:00] VITALS: BP 139/54; PULSE 56; PULSE 60; RESP 16; TEMP 36.6; O2SAT 97
[2024-11-18] MEDS: PREGABALIN 100MG CAPSULE 200 MG PO ×2 (08:00→20:21)
[2024-11-18] MEDS: ENOXAPARIN 40MG/0.4ML SYRINGE 40 MG SUBCUT (08:00)
[2024-11-18] MEDS: FUROSEMIDE 100MG/10ML VIAL 80 MG IV ×2 (08:00→15:19)
[2024-11-18] MEDS: IRBESARTAN 75MG TABLET 75 MG PO (08:00)
[2024-11-18] MEDS: NICOTINE 21MG/24HR PATCH 21 MG TD (08:00)
[2024-11-18] MEDS: DULOXETINE 30MG CAPSULE.DR 60 MG PO (08:01)
[2024-11-18] MEDS: ASPIRIN EC 81MG TABLET 81 MG PO (08:01)
[2024-11-18] MEDS: METOPROLOL SUCCINATE XL 25MG TABLET 25 MG PO (08:01)
[2024-11-18] MEDS: SPIRONOLACTONE 25MG TABLET 25 MG PO (08:01)
[2024-11-18 12:00] VITALS: BP 134/71; PULSE 58; PULSE 60; RESP 17; TEMP 36.6; O2SAT 96
--- NOTE | 2024-11-18 15:28 | EXP.PN ---
Subjective *Date: 11/18/24 *Time: 15:28 Interval history: Patient feeling much better, but desaturating on room air. Adamantly refusing [facility] that Dr. Butler recommends tomorrow, will reevaluate tomorrow. Continue diuresis, wean oxygen as tolerated. Exam Data for Last 24 hours Vital signs and Labs for Last 24 Hours: Temp Pulse Resp BP Pulse Ox O2 Del Method O2 Flow Rate 98 F 58 L 17 134/71 96 Nasal Cannula 2 11/18/24 12:00 11/18/24 12:00 11/18/24 12:00 11/18/24 12:00 11/18/24 12:00 11/18/24 14:14 11/18/24 14:14 Laboratory Results - last 24 hr 11/18/24 06:00: WBC 9.8, RBC 4.42 L, Hgb 12.0 L, Hct 37.9 L, MCV 85.7, MCH 27.1, MCHC 31.7 L, RDW 18.7 H, Plt Count 169, MPV 11.5 H, Neut % (Auto) 71.6, Lymph % (Auto) 13.0, Weber % (Auto) 9.5 H, Eos % (Auto) 4.7, Baso % (Auto) 0.6, Neut # (Auto) 7.0, Lymph # (Auto) 1.3, [place] # (Auto) 0.9, Eos # (Auto) 0.5 H, Baso # (Auto) 0.1, Sodium 143, Potassium 3.7, Chloride 107, Carbon Dioxide 33 H, Anion Gap 6.7, BUN 46 H D, Creatinine 1.40 H, Estimated Creat Clear 63, Estimated GFR 49 L, Est GFR ( Amer) 59, Glucose 116 H D, Calcium 8.7, Magnesium 2.0, Total Bilirubin 0.5, AST 28, ALT 16, Alkaline Phosphatase 120, Total Protein 6.2 L, Albumin 3.2 L, Globulin 3.0, Albumin/Globulin Ratio 1.1 Temp Pulse Resp BP Pulse Ox O2 Del Method O2 Flow Rate 98.1 F 74 18 144/76 H 97 Room Air 2 11/16/24 08:00 11/16/24 08:00 11/16/24 08:00 11/16/24 08:00 11/16/24 08:00 11/16/24 09:00 11/15/24 22:35 Laboratory Results - last 24 hr 11/15/24 23:00: WBC 9.7, RBC 4.56 L, Hgb 12.4 L, Hct 38.1 L, MCV 83.6, MCH 27.2, MCHC 32.5, RDW 18.5 H, Plt Count 162, MPV 11.3 H, Neut % (Auto) 75.3, Lymph % (Auto) 11.6, [place] % (Auto) 8.0, Eos % (Auto) 3.4, Baso % (Auto) 0.9, Neut # (Auto) 7.3, Lymph # (Auto) 1.1, [place] # (Auto) 0.8, Eos # (Auto) 0.3, Baso # (Auto) 0.1, PT 12.3, INR 1.12 H, Sodium 139, Potassium 3.4 L, Chloride 104, Carbon Dioxide 31 H, Anion Gap 7.4, BUN 32 H, Creatinine 1.10, Estimated GFR 64, Est GFR ( Amer) 78, Glucose 103 H, Lactate 1.0, Calcium 10.1, Magnesium 1.8, Total Bilirubin 0.8, AST 38, ALT 27, Alkaline Phosphatase 149 H, Troponin I 0.09 H, NT-Pro-B Natriuret Pep 8700 H, Total Protein 6.6, Albumin 3.6, Globulin 3.0, Albumin/Globulin Ratio 1.2, Triglycerides 64, Cholesterol 139 L, LDL Cholesterol Direct 87.93 L, VLDL Cholesterol 13, HDL Cholesterol 27 L, Cholesterol/HDL Ratio 5.1 H 11/16/24 07:25: Hemoglobin A1c 5.6, Troponin I 0.08 H, NT-Pro-B Natriuret Pep 8510 H I & O for Last 24 hours: Intake & Output 11/15/24 11/16/24 11/17/24 11/18/24 23:59 23:59 23:59 23:59 Intake Total 1060 / 1414 2033 / 2033 840 / 840 Output Total 1150 / 1150 4850 / 4950 1500 / 1500 950 / 950 Balance -1150 / -1150 -3790 / -3536 534 / 534 -110 / -110 Weight 109.633 kg 109.6 kg 106.231 kg 105.857 kg Intake & Output 11/13/24 11/14/24 11/15/24 11/16/24 23:59 23:59 23:59 23:59 Intake Total 360 / 360 Output Total 1150 / 1150 1100 / 1100 Balance -1150 / -1150 -740 / -740 Weight 241 lb 11.2 oz Constitutional Constitutional: no acute distress and cooperative *Routine HEENT Exam Eye: Present PERRL *Routine Respiratory Exam Respiratory: Present CTA bilaterally; Absent accessory muscle use, wheezes or crackles *Routine Cardiovascular Exam Cardiovascular: Present RRR, Normal S1 and Normal S2; Absent murmur, gallop or rubs *Routine Abdominal Exam Abdominal: Present soft; Absent tenderness *Routine Extremities Exam Extremities: Present edema and pulses intact; Absent cyanosis *Routine Skin Exam Skin: Present intact; Absent erythema or wounds *Routine Neurological Exam Neurological: Present alert and oriented X3 Routine Psychiatric Exam Psychiatric: Present cooperative Assessment and Plan *Assessment and plan (1) Acute CHF: Status: Acute Category: Medical Code(s): I50.9 - Heart failure, unspecified (2) Elevated troponin: Status: Acute Category: Medical Code(s): R79.89 - Other specified abnormal findings of blood chemistry Plan José Basurto is a 79-year-old male who presented with shortness of breath, increased leg swelling from OSH and was transferred for HFpEF exacerbation and NSTEMI. #HFpEF exacerbation #NSTEMI #History of CABG #Medical nonadherence #Hypertension #Hyperlipidemia ? Presented with shortness of breath, pulmonary edema, leg swelling. BNP 8510. Per , patient has not been adherent to his medications. He is very hard headed. ? Troponin peaked at 0.09, but EKG revealed LBBB. Spoke with Dr. Butler, highly recommends LHC on Tuesday. However, patient is profusely refusing LHC even after extensive conversations about risks of not doing so including sudden cardiac . ? ECHO 11/16/2024 reveals LVEF 50% with biatrial dilation. A1c 5.6, LDL 86, follow-up TSH. ? Continue IV Lasix 80 mg twice daily, spironolactone 25 mg. Net -4.5 L. ? Continue aspirin 81 mg, atorvastatin 80 mg, metoprolol succinate 25 mg, irbesartan 75 mg. ? Continuous cardiac telemetry. ? Continues to desaturate on room air to mid 80s, requiring 2 L nasal cannula. Wean as tolerated. New requirement on admission. #Anxiety depression ? Continue home duloxetine 60 mg. Full code DVT prophylaxis: Lovenox 40 mg
[2024-11-18 16:00] VITALS: BP 112/60; PULSE 59; PULSE 60; RESP 18; TEMP 36.7; O2SAT 94
[2024-11-18 20:00] VITALS: BP 100/50; PULSE 50; PULSE 64; RESP 18; TEMP 36.8; O2SAT 95
[2024-11-18] MEDS: ATORVASTATIN 40MG TABLET 80 MG PO (20:21)
[2024-11-18] MEDS: FLUTICASONE/SALMETEROL 250/50MCG DISKUS 1 PUFF IH (21:27)
[2024-11-19] VITALS (17 sets, daily range): BP systolic 92–155; BP diastolic 52–91; PULSE 46–70; RESP 16–23; TEMP 36.6–36.8; O2SAT 92–100; BMI 32.6
--- NOTE | 2024-11-19 05:46 | PC.NURSE ---
Pt is A&Ox4 and currently tolerating 2L well at this time. Pt edema has decreased somewhat this weekend. Pt continues to state that he is not going to go through with a heart cath today. Pt denies pain and has had no acute changes to note this shift. Pt remains in Afib with a BBB on telemetry.
[2024-11-19] MEDS: FLUTICASONE/SALMETEROL 250/50MCG DISKUS 1 PUFF IH (06:13)
[2024-11-19 07:09] LABS: Albumin Level 3.5 g/dl (3.5-5.0); Basophils # 0.1 K/mm3 (0-0.2); Basophils % 0.6 % (0.1-2.0); Chloride 107 mmol/L (98-107); Eosinophils # 0.4 Kmm3 (0.0-0.4); Eosinophils % 4.5 % (0.1-12.0); Hematocrit 40.2 % (42.0-52.0); Hemoglobin 12.1 g/dL (14.1-18.0); Immature Granulocytes # 0.06 10^3uL; Immature Granulocytes % 0.6 %; Lymphocytes # 1.1 K/mm3 (0.7-4.5); Lymphocytes % 11.8 % (10-50); Mean Corpuscular HGB Conc 30.1 g/dL (31.8-35.4); Mean Corpuscular Hemoglobin 26.1 pg (27.0-31.2); Mean Corpuscular Volume 86.6 fl (80-94); Mean Platelet Volume 11.7 fl (7.4-10.4); Monocytes % 10.5 % (1.7-9.3); Neutrophils # 6.9 K/mm3 (1.8-7.8); Nucleated Red Blood Cells # 0 10^3/uL; Nucleated Red Blood Cells % 0 %; Platelet Count 157 K/mm3 (142-424); Red Blood Count 4.64 M/mm3 (4.60-6.20); Red Cell Distribution Width 18.8 % (11.5-17.5); Red Cell Distribution Width-SD 58.4 fL; White Blood Count 9.6 K/mm3 (4.8-10.8)
[2024-11-19 07:10] LABS: Potassium 3.5 mmoL/L (3.5-5.1); Sodium 142 mmol/L (136-145)
[2024-11-19 07:12] LABS: Alanine Aminotransferase 15 U/L (12-78); Albumin/Globulin Ratio 1.1 (1.1-1.8); Alkaline Phosphatase 124 U/L (38-126); Anion Gap 4.5 mEq/L (5-15); Aspartate Amino Transferase 25 U/L (17-59); Bilirubin,Total 1.2 mg/dl (0.2-1.3); Blood Urea Nitrogen 47 mg/dl (9-20); Carbon Dioxide 34 mmol/L (22.0-30.0); Creatinine Clearance Estimated 62 mL/min (50-200); Estimated Glomerular Filt Rate 49 ml/min (>60); GFR (African American) 59 ML/MIN (>60); Globulin 3.1 g/dL (1.3-3.2); Total Protein,Serum 6.6 g/dl (6.3-8.2)
[2024-11-19 07:13] LABS: Calcium 8.8 mg/dl (8.4-10.2); Glucose 95 mg/dl (74-100); Magnesium 2.1 mg/dl (1.6-2.3)
[2024-11-19 07:42] LABS: Thyroid Stimulating Hormone 0.57 uIU/mL (0.465-4.68)
[2024-11-19] MEDS: ASPIRIN EC 81MG TABLET 81 MG PO (09:42)
[2024-11-19] MEDS: IRBESARTAN 75MG TABLET 75 MG PO (09:42)
[2024-11-19] MEDS: METOPROLOL SUCCINATE XL 25MG TABLET 25 MG PO (09:42)
[2024-11-19] MEDS: ENOXAPARIN 40MG/0.4ML SYRINGE 40 MG SUBCUT (09:43)
[2024-11-19] MEDS: DULOXETINE 30MG CAPSULE.DR 60 MG PO (09:43)
[2024-11-19] MEDS: SPIRONOLACTONE 25MG TABLET 25 MG PO (09:43)
[2024-11-19] MEDS: FUROSEMIDE 100MG/10ML VIAL 80 MG IV ×2 (09:43→16:21)
[2024-11-19] MEDS: NICOTINE 21MG/24HR PATCH 21 MG TD (11:02)
[2024-11-19] MEDS: PREGABALIN 100MG CAPSULE 200 MG PO (11:02)
--- NOTE | 2024-11-19 11:20 | P.PN_ITS ---
Subjective Subjective Date: 11/19/24 Time: 09:30 Principal diagnosis: nonstemi, acute on chronic HFpEF Interval history: This is an 79-year-old patient who was admitted to the hospital with acute on chronic HFpEF and a non-STEMI. The patient has been diuresed over the weekend with IV Lasix. He has a -7 L fluid balance since admission. He states his shortness of breath has significantly improved. However, he is still short of breath with exertion but this is much better. His bilateral lower extremity edema has significantly improved. He denies any chest pain or pressure. He denies any fever, chills, nausea, vomiting or diarrhea. He did have an elevated troponin consistent with a non-STEMI. The patient was recommended to have left cardiac catheterization today after he was diuresed. However, he is apprehensive to proceed with left cardiac catheterization at this time. Exam Data for Last 24 hours Vital signs and Labs for Last 24 Hours: Temp Pulse Resp BP Pulse Ox O2 Del Method O2 Flow Rate 97.9 F 46 L 18 129/55 L 96 Nasal Cannula 2 11/19/24 08:00 11/19/24 08:00 11/19/24 08:00 11/19/24 08:00 11/19/24 08:00 11/19/24 09:00 11/19/24 09:00 Laboratory Results - last 24 hr 11/19/24 05:52: WBC 9.6, RBC 4.64, Hgb 12.1 L, Hct 40.2 L, MCV 86.6, MCH 26.1 L, MCHC 30.1 L, RDW 18.8 H, Plt Count 157, MPV 11.7 H, Neut % (Auto) 72.0, Lymph % (Auto) 11.8, [place] % (Auto) 10.5 H, Eos % (Auto) 4.5, Baso % (Auto) 0.6, Neut # (Auto) 6.9, Lymph # (Auto) 1.1, [place] # (Auto) 1.0, Eos # (Auto) 0.4, Baso # (Auto) 0.1, Sodium 142, Potassium 3.5, Chloride 107, Carbon Dioxide 34 H, Anion Gap 4.5 L, BUN 47 H, Creatinine 1.40 H, Estimated Creat Clear 62, Estimated GFR 49 L, Est GFR ( Amer) 59, Glucose 95, Calcium 8.8, Magnesium 2.1, Total Bilirubin 1.2, AST 25, ALT 15, Alkaline Phosphatase 124, Total Protein 6.6, Albumin 3.5, Globulin 3.1, Albumin/Globulin Ratio 1.1, TSH 0.57 I & O for Last 24 hours: Intake & Output 11/16/24 11/17/24 11/18/24 11/19/24 23:59 23:59 23:59 23:59 Intake Total 1060 / 1414 2033 / 2033 1320 / 1560 240 / 240 Output Total 4850 / 4950 1500 / 1500 3750 / 3750 525 / 525 Balance -3790 / -3536 534 / 534 -2430 / -2190 -285 / -285 Weight 241 lb 10.026 oz 234 lb 3.2 oz 233 lb 6 oz 228 lb Constitutional Constitutional: no acute distress and obese *Routine HEENT Exam Head: Present normocephalic and atraumatic ENT: Present mucous membranes moist *Routine Neck Exam Neck: Present supple, full ROM and normal carotid upstroke; Absent JVD, carotid bruit or lymphadenopathy *Routine Respiratory Exam Respiratory: Present CTA bilaterally, normal respiratory effort, able to speak in complete sentences and symmetric chest movement *Routine Cardiovascular Exam Cardiovascular: Present RRR, Normal S1 and Normal S2; Absent murmur or gallop *Routine Abdominal Exam Abdominal: Present soft and normoactive bowel sounds; Absent tenderness, distended or organomegaly *Routine Extremities Exam Extremities: Present edema, full ROM, pulses intact and normal capillary refill; Absent cyanosis or clubbing *Routine Skin Exam Skin: Present intact and warm; Absent erythema *Routine Neurological Exam Neurological: Present alert, oriented X3 and CN II-XII intact; Absent sensory deficit or motor deficit Routine Psychiatric Exam Psychiatric: Present normal affect Progress Note: A&P Assessment and plan (1) NSTEMI (non-ST elevated myocardial infarction): Status: Acute (2) Elevated troponin: Status: Acute (3) Acute on chronic heart failure with preserved ejection fraction (HFpEF): Status: Acute (4) Paroxysmal atrial fibrillation: Status: Acute (5) PVCs (premature ventricular contractions): Status: Acute (6) History of coronary artery bypass graft: Status: Acute (7) HLD (hyperlipidemia): Status: Acute (8) HTN (hypertension): Status: Acute Assessment and Plan Assessment and Plan for All Diagnoses:: Plan: 1. The patient presented to the emergency department with shortness of breath and edema. The patient was found to have an acute on chronic exacerbation of HFpEF. He has been diuresed with IV Lasix over the weekend. He has a -7 L fluid balance since being in the hospital. Continue with diuresis with IV Lasix and oral spironolactone at this time. 2. The patient also had an elevated troponin consistent with a non-STEMI. After a very long discussion with the patient he is agreeable in proceeding with left cardiac catheterization to evaluate his coronary artery disease due to his non-STEMI, elevated troponin and atypical angina. The patient has known coronary artery disease status post CABG. He has not followed with cardiology consistently and only sees cardiology in [facility] on occasion. 3. Will plan to proceed with left cardiac catheterization today to evaluate his coronary artery disease due to his elevated troponin, non-STEMI and atypical angina. 4. The patient has been educated the risk and benefits of proceeding with left cardiac catheterization. The patient verbalizes understanding and is agreeable in proceeding with the procedure. 5. Continue irbesartan and metoprolol for his non-STEMI and HFpEF. 6. The patient does have atrial fibrillation. He is currently on metoprolol. 7. The patient has not been on long-term anticoagulation. He should be on long-term anticoagulation prior to discharge home due to his atrial fibrillation. He is currently on Lovenox. 8. Blood pressure is well-controlled. 9. His LDL goal is less than 55. LDL is 86. He has been started on a statin. 10. Further recommendations will be made pending the patient's response to treatment and the results of his left cardiac catheterization today. Thank you for the opportunity to help participate in the care of this patient. All recommendations and orders are per Dr. Dumont.
--- NOTE | 2024-11-19 11:21 | IR_ITS ---
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 COMPLICATIONS None Estimated Blood Loss: Less than 10 mls TECHNIQUE One percent lidocaine used to anesthetize the right groin. The right femoral artery was accessed via the Seldinger technique and a 5 Citizen [place] sheath was placed in the right femoral artery. A JL 4, JR4 catheter were used to perform left heart catheterization, left ventriculogram selective coronary angiography as well as selective engagement of the 2 vein grafts and the left internal mammary artery. At the end the diagnostic angiogram therapeutic Was administered giving a therapeutic ACT and an EBU 3.75 guide catheter was used to intubate the left main artery followed by Choice PT extra-support wire placed distally into the LAD. A 4 mm x 12 mm lithotripsy balloon was deployed at 5 david up and down the proximal and mid LAD pretreated the calcified stenosis. Following this a 4 mm x 38 mm Isiah frontier stent was deployed in the proximal to mid LAD and deployed at 16 david. An additional 4.5 x 22 mm Isiah frontier stent was placed proximal to the first stent yet still overlapping and deployed at 20 david. The balloon was advanced a full length and deployed at 20 david. An additional 3.5 x 8 mm Kimberly frontier stent was placed distal to the for stent that was placed yet still overlapping the stent and deployed at 20 david. Excellent angiograph results were obtained with CYRUS-3 flow being present before and after the procedure. At the end of the procedure the apparatus was removed the groin is reprepped closure change sheath was removed and hemostasis was achieved using Angio-Seal device patient was transferred to the postop putting in stable condition ANGIOGRAPHIC RESULTS The left main artery Normal The left anterior descending artery Has proximal eccentric 50 been 70% followed by additional 70% eccentric calcified stenosis with additional 40% followed by a mid vessel 40% stenosis. The LAD is large and wraps the apex The circumflex artery Ostially occluded The right coronary artery Subtotally approximately occluded and completely occluded at mid vessel The GONZALEZ ventriculogram reveals Reduced ejection fraction anterior apical hypokinesis estimate ejection fraction 30% The left ventricular end-diastolic pressure 20 mmHg GAMBLE graft is occluded Left subclavian artery has a 30 mm trans stenotic ostial stenosis/gradient Saphenous graft to the circumflex arteries patent Saphenous graft to the posterior descending artery is patent IMPRESSION Loss of GAMBLE graft to an LAD Heavily calcified ostial proximal and mid LAD with successful stenting reducing the lesions with intravascular lithotripsy followed by 3 contiguous drug-eluting stents reducing the stenosis to 0% Moderate persistent left subclavian artery stenosis Patent saphenous to the circumflex artery and patent saphenous to the right coronary LV gram indicating reduced ejection fraction Elevated LVEDP PLAN 1. Dual antiplatelet therapy 2. If the echocardiogram was good quality then no additional recommendations are made and I would stick with the 50% ejection fraction on echo. If the echo was poor quality I would consider repeating it with Definity to determine if the ejection fraction is 50 or closer to 30 as LV G suggests 3. If ejection fraction is reduced recommend GDMT for LV dysfunction 4. LDL less than 55 achieved with high intensity statin 5. Avoidance of tobacco products 6. Risk factor modification 7. Cardiac rehabilitation 8. If ejection fraction is less than 35% consider LifeVest Electronically signed by : Demond Butler MD 11/19/2024 13:41:48
--- NOTE | 2024-11-19 11:41 | HMH.OTEV ---
OT Inpatient Evaluation Rehab OT IP Evaluation Start: 11/17/24 11:57 Freq: ONCE Status: Active Protocol: Document 11/19/24 11:35 SOLA (Rec: 11/19/24 11:41 SOLA [id number]) Rehab OT IP Assessment Subjective History Per H&P: Patient is an 79-year-old male with past medical history of CHF, who presents to the hospital due to complaints of bilateral lower extremity swelling as well as elevated troponin. Patient presented as a transfer from outside facility, patient was noted to have elevated troponin and was sent to [facility] for cardiology evaluation. Cardiology was called from the outside facility and recommended transfer. Patient otherwise denied active chest pain, he mentions he has been having shortness of breath as well as bilateral lower extremity edema. Patient denied fevers chills nausea vomiting diarrhea constipation dysuria. Subjective I am tired. Pt was supine in bed when therapy arrived. Pt agreed to participate in OT eval this morning. Pt orient x3. Pt reports he lives with his who care for him as needed in a single story home with a few steps with handrails. Pt reported ind in ADLs/IADLs. Pt reports they still drive. Pt reports using walker for functional mobility. Pt reports they have a shower chair and grab bars. Pt reports no O2 use at home, currently on 2 L O2 at [facility]. Pt denies fall in past 60 days. Pt reported they did not want to get out of bed into chair this morning. They reported they wanted to wait for . Pt left supine in bed with call light and all other needs within reach. Objective Patient Orientation Person,Place,Birthday Decrease in Yes Endurance Rehab OT IP prob,goals,plan Problems Date of Evaluation: 11/19/24 OT IP Problems Bed Mobility,Transfers,Balance,Self care,Safety Rehab Potential Rehab Potential Good Equipment Needs Assistive Devices Straight Cane,Standard Walker,Rolling / Wheeled Walker Plan OT intervention Plan Bed Mobility,Transfers,Balance,Self care,Safety, Therapeutic Exercise OT Plan Frequency Daily Duration LOS Discharge Goals Bed Mobility Ability Assistance x1 Sit to Stand Chair Minimal x 1 (25% assist) Transfer Ability Chair Transfer Minimal x 1 (25% assist) Ability Chair Transfer Sit to/from Ambulatory Technique Chair Transfer Standard Walker,Straight Cane,Rolling Walker Assistive Devices Feeding Ability Assist with Tray Set Up Decrease in No Endurance Discharge Plan OT Discharge Plan OT and PT discussed pt as PT completed eval over weekend and pt too tired to engage in any therapeutic activity. Pt is almost at his baseline with his functional mobility and self-care but would benefit from skilled acute care OT to address endurance deficits and prevent functional decline while at [facility]. Pt most appropriate for a d/c home with OT services. Eval Complexity Eval Charge Codes 75840 - Moderate Complexity PHYSICIAN CERTIFICATION: I certify the specified therapy services for José Basurto are required, authorized, and reviewed every 30 days.
[2024-11-19] MEDS: HEPARIN 1,000 UNITS/500ML NS (CATH LAB) 3000 UNIT IV (11:46)
[2024-11-19] MEDS: diphenhydrAMINE 50MG/ML VIAL 50 MG IV (11:46)
[2024-11-19] MEDS: 0.9 % SODIUM CHLORIDE 500 ML 25 ML IV (11:46)
[2024-11-19] MEDS: LIDOCAINE 1% 10ML MDV 10 ML IJ (11:46)
--- NOTE | 2024-11-19 11:58 | SW/DCPLANNER ---
Spoke with patient's regarding home health services once patient is medically stable and ready for discharge. Patient's stated that they are interested in home health and that her could benefit from it. I faxed patients information to [facility] health and they are able to accept patient. Jackie LOPEZ Manager Hardware
[2024-11-19] MEDS: FENTANYL 100MCG/2ML VIAL 50 MCG IV (12:23)
[2024-11-19] MEDS: MIDAZOLAM HCL 1MG/ML 5ML VIAL 1 MG IV (12:23)
[2024-11-19] MEDS: FENTANYL 100MCG/2ML VIAL 25 MCG IV (12:58)
[2024-11-19] MEDS: MIDAZOLAM 2MG/2ML VIAL 1 MG IV (12:58)
[2024-11-19] MEDS: CLOPIDOGREL 300MG TABLET 600 MG PO (13:11)
--- NOTE | 2024-11-19 14:19 | EXP.DC.SUM ---
General Admission date:: 11/15/24 Discharge date: 11/19/24 HPI HPI HPI: Patient is a 79-year-old male with past medical history of CHF, who presents to the hospital due to complaints of bilateral lower extremity swelling as well as elevated troponin. Patient presented as a transfer from outside facility, patient was noted to have elevated troponin and was sent to [facility] for cardiology evaluation. Cardiology was called from the outside facility and recommended transfer. Patient otherwise denied active chest pain, he mentions he has been having shortness of breath as well as bilateral lower extremity edema. Patient denied fevers chills nausea vomiting diarrhea constipation dysuria. Hospital Course Hospital Course Hospital Course: José Basurto is a 79-year-old male who presented with shortness of breath, increased leg swelling from OSH and was transferred for HFpEF exacerbation and NSTEMI. Tolerated diuresis. Given response and improvement clinically, was taken for heart cath on Tuesday. Findings per report below. Ultimately received 3 drug-eluting stents to his LAD. Stable discharge home with further management as an outpatient. Problems addressed as follows: #HFpEF exacerbation #NSTEMI #History of CABG #Medical nonadherence #Hypertension #Hyperlipidemia ? Presented with shortness of breath, pulmonary edema, leg swelling. BNP 8510. Per , patient has not been adherent to his medications. He is very hard headed per her report. Troponin peaked at 0.09, but EKG revealed LBBB. Cardiology consulted over the weekend. Recommended left heart cath on Tuesday. Patient was resistant initially, but agreeable after much discussion. TSH obtained during admission was normal at 0.57. No signs of hypothyroid. Echo obtained on 11/16 revealing EF 50% with biatrial dilation. A1c normal at 5.6. LDL 86. Aggressive diuresis through the weekend with net -7.7 L during admission. Will continue diuresis at discharge Lasix 40 mg daily and spironolactone 25 mg daily. Heart cath performed on 11/19/2024. Findings as follows: Loss of GAMBLE graft to an LAD. Heavily calcified ostial proximal and mid LAD with successful stenting reducing the lesions with intravascular lithotripsy followed by 3 contiguous drug-eluting stents reducing the stenosis to 0%. Moderate persistent left subclavian artery stenosis. Patent saphenous to the circumflex artery and patent saphenous to the right coronary LV gram indicating reduced ejection fraction, Elevated LVEDP Post cath, cardiology recommends continuing medical management with metoprolol succinate 25 mg daily, Plavix 75 mg daily, Lipitor 80 mg daily, aspirin 81 mg daily. Has a component of paroxysmal A-fib. Initiated on apixaban 5 mg twice daily. Will continue triple therapy for 1 month. Wean to Plavix and Eliquis thereafter. Follow-up with cardiology as an outpatient. #Anxiety depression: Continue home duloxetine 60 mg. Neuropathy: Continue pregabalin 200 mg twice daily Total time spent on discharge 32 minutes in counseling, documentation, chart review, and direct care with patient. Exam Data for Last 24 hours Vital signs and Labs for Last 24 Hours: Temp Pulse Resp BP Pulse Ox O2 Del Method O2 Flow Rate 98.1 F 63 17 118/69 94 L Room Air 2 11/19/24 13:05 11/19/24 14:05 11/19/24 14:05 11/19/24 14:05 11/19/24 14:05 11/19/24 14:05 11/19/24 09:00 Laboratory Results - last 24 hr 11/19/24 05:52: WBC 9.6, RBC 4.64, Hgb 12.1 L, Hct 40.2 L, MCV 86.6, MCH 26.1 L, MCHC 30.1 L, RDW 18.8 H, Plt Count 157, MPV 11.7 H, Neut % (Auto) 72.0, Lymph % (Auto) 11.8, [place] % (Auto) 10.5 H, Eos % (Auto) 4.5, Baso % (Auto) 0.6, Neut # (Auto) 6.9, Lymph # (Auto) 1.1, [place] # (Auto) 1.0, Eos # (Auto) 0.4, Baso # (Auto) 0.1, Sodium 142, Potassium 3.5, Chloride 107, Carbon Dioxide 34 H, Anion Gap 4.5 L, BUN 47 H, Creatinine 1.40 H, Estimated Creat Clear 62, Estimated GFR 49 L, Est GFR ( Amer) 59, Glucose 95, Calcium 8.8, Magnesium 2.1, Total Bilirubin 1.2, AST 25, ALT 15, Alkaline Phosphatase 124, Total Protein 6.6, Albumin 3.5, Globulin 3.1, Albumin/Globulin Ratio 1.1, TSH 0.57 I & O for Last 24 hours: Intake & Output 11/16/24 11/17/24 11/18/24 11/19/24 23:59 23:59 23:59 23:59 Intake Total 1060 / 1414 4 / 2034 1320 / 1560 240 / 240 Output Total 4850 / 4950 1500 / 1500 3750 / 3750 1125 / 1125 Balance -3790 / -3536 534 / 534 -2430 / -2190 -885 / -885 Weight 109.6 kg 106.231 kg 105.857 kg 103.419 kg Constitutional Constitutional: no acute distress, obese, chronically ill appearing and cooperative *Routine HEENT Exam Head: Present normocephalic and atraumatic Eye: Present EOMI ENT: Present mucous membranes moist *Routine Neck Exam Neck: Present supple, full ROM and normal carotid upstroke; Absent JVD, carotid bruit or lymphadenopathy *Routine Respiratory Exam Respiratory: Present CTA bilaterally, normal respiratory effort, able to speak in complete sentences and symmetric chest movement; Absent rhonchi or wheezes *Routine Cardiovascular Exam Cardiovascular: Present RRR, Normal S1 and Normal S2; Absent murmur or gallop *Routine Abdominal Exam Abdominal: Present soft, normoactive bowel sounds and distended; Absent tenderness or organomegaly *Routine Rectal Exam Patient deferred: visual exam *Routine Exam Patient deferred: penile exam *Routine Extremities Exam Extremities: Present edema (Trace, improved), full ROM, pulses intact and normal capillary refill; Absent cyanosis or clubbing *Routine Skin Exam Skin: Present intact and warm; Absent erythema Comments: Stasis dermatitis bilateral lower leg *Routine Neurological Exam Neurological: Present alert, oriented X3, CN II-XII intact and moving all extremities; Absent sensory deficit, motor deficit or altered mental status Routine Psychiatric Exam Psychiatric: Present normal affect Results Data Completed and Pending Labs on day of discharge: Labs from last 24 hours 11/19/24 05:52 WBC 9.6 RBC 4.64 Hgb 12.1 L Hct 40.2 L MCV 86.6 MCH 26.1 L MCHC 30.1 L RDW 18.8 H Plt Count 157 MPV 11.7 H Neut % (Auto) 72.0 Lymph % (Auto) 11.8 [place] % (Auto) 10.5 H Eos % (Auto) 4.5 Baso % (Auto) 0.6 Neut # (Auto) 6.9 Lymph # (Auto) 1.1 [place] # (Auto) 1.0 Eos # (Auto) 0.4 Baso # (Auto) 0.1 Sodium 142 Potassium 3.5 Chloride 107 Carbon Dioxide 34 H Anion Gap 4.5 L BUN 47 H Creatinine 1.40 H Estimated Creat Clear 62 Estimated GFR 49 L Est GFR ( Amer) 59 Glucose 95 Calcium 8.8 Magnesium 2.1 Total Bilirubin 1.2 AST 25 ALT 15 Alkaline Phosphatase 124 Total Protein 6.6 Albumin 3.5 Globulin 3.1 Albumin/Globulin Ratio 1.1 TSH 0.57 DS: Diagnosis Discharge Diagnosis (1) NSTEMI (non-ST elevated myocardial infarction): Status: Acute Code(s): I21.4 - Non-ST elevation (NSTEMI) myocardial infarction (2) Elevated troponin: Status: Acute Code(s): R79.89 - Other specified abnormal findings of blood chemistry (3) Acute on chronic heart failure with preserved ejection fraction (HFpEF): Status: Acute Code(s): I50.33 - Acute on chronic diastolic (congestive) heart failure (4) Paroxysmal atrial fibrillation: Status: Acute Code(s): I48.0 - Paroxysmal atrial fibrillation (5) PVCs (premature ventricular contractions): Status: Acute Code(s): I49.3 - Ventricular premature depolarization (6) History of coronary artery bypass graft: Status: Acute Code(s): Z95.1 - Presence of aortocoronary bypass graft (7) HLD (hyperlipidemia): Status: Acute Code(s): E78.5 - Hyperlipidemia, unspecified (8) HTN (hypertension): Status: Acute Code(s): I10 - Essential (primary) hypertension (9) CAD (coronary artery disease): Status: Acute Code(s): I25.10 - Atherosclerotic heart disease of [place] coronary artery without angina pectoris Meds Home Medications and Allergies Home Medications ?Medication ?Instructions ?Recorded ?Confirmed ?Type duloxetine 60 mg capsule,delayed 60 mg PO DAILY 02/09/22 11/16/24 History release furosemide 40 mg tablet 40 mg PO DAILY 02/09/22 11/15/24 History pregabalin 200 mg capsule 200 mg PO BID 02/09/22 11/16/24 History albuterol sulfate 90 mcg/actuation 2 puff inhalation Q4HP PRN 11/16/24 11/16/24 History aerosol inhaler Shortness Of Breath fluticasone 250 mcg-salmeterol 50 1 inh inhalation BID 11/16/24 11/16/24 History mcg/dose blistr powdr for inhalation ([employer] Inhub) apixaban 5 mg tablet 5 mg PO BID #60 tabs 11/19/24 Rx aspirin 81 mg tablet,delayed 81 mg PO DAILY 30 days #30 tabs 11/19/24 Rx release atorvastatin 40 mg tablet 80 mg (2 x 40 mg) PO HS 30 days 11/19/24 Rx #60 tabs clopidogrel 75 mg tablet 75 mg PO DAILY 30 days #30 tabs 11/19/24 Rx metoprolol succinate 25 mg 25 mg PO DAILY 30 days #30 tabs 11/19/24 Rx tablet,extended release 24 hr spironolactone 25 mg tablet 25 mg PO DAILY 30 days #30 tabs 11/19/24 Rx New Prescriptions to Start Prescriptions: apixaban Negin,Frank aspirin Negin,Frank atorvastatin Negin,Frank clopidogrel Negin,Frank metoprolol succinate Negin,Frank spironolactone Frank Kam Allergies Allergy/AdvReac Type Severity Reaction Status Date / Time No Known Allergies Allergy Verified 01/14/23 10:45 Discharge Plan Disposition Patient Disposition: Home Health Service Condition: Fair Discharge Order Discharge Orders: Discharge Order (Routine); Ordered 11/19/24 Ordered By: Frank Kam Follow up Plan Follow up with: Manuel King PA [Physician Boxing Machine Operator, Cardiology] - 11/27/24 11:15 am Raphael Mendoza MD [Primary Care Provider, Medical] - 11/26/24 2:45 pm Prescriptions/Medication Reconciliation: New atorvastatin 40 mg Tablet 80 mg PO HS 30 Days Qty: 60 0RF clopidogrel 75 mg Tablet 75 mg PO DAILY 30 Days Qty: 30 0RF aspirin 81 mg Tablet,Delayed Release (Dr/Ec) 81 mg PO DAILY 30 Days Qty: 30 0RF spironolactone 25 mg Tablet 25 mg PO DAILY 30 Days Qty: 30 0RF metoprolol succinate 25 mg Tablet Extended Release 24 Hr 25 mg PO DAILY 30 Days Qty: 30 0RF apixaban 5 mg tablet 5 mg PO BID Qty: 60 0RF Continued pregabalin 200 mg capsule 200 mg PO BID Patient Comments: TAKE 1 CAPSULE BY MOUTH THREE TIMES A DAY duloxetine 60 mg capsule,delayed release(DR/EC) 60 mg PO DAILY furosemide 40 mg tablet 40 mg PO DAILY Patient Comments: TAKE 1 TABLET BY MOUTH EVERY DAY fluticasone propion-salmeterol [Wixela Inhub] 250-50 mcg/dose blister with device 1 inh INHALATION BID Patient Comments: INHALE 1 PUFF TWICE A DAY albuterol sulfate 90 mcg/actuation HFA aerosol inhaler 2 puff INHALATION Q4HP PRN (Reason: Shortness Of Breath) Patient Comments: TAKE 2 PUFFS BY MOUTH EVERY 4 TO 6 HOURS NEEDED FOR WHEEZE Problem Reconciliation Problems Reviewed?: Yes Patient Discharge Instructions ACTIVITY: Continue current activity DIET: continue same diet Patient Instructions: DI for Heart Failure, Stop Light Heart Failure Print Language: Malian Providers Primary Care Provider: Raphael Mendoza Admit Provider: Frank Kam Attending Provider: Frank Kam
--- NOTE | 2024-11-19 14:43 | PC.NURSE ---
after discussion with cardiology, patient agreed to cardiac cath. consent was signed and on chart.
--- NOTE | 2024-11-19 14:44 | PC.NURSE ---
patient arrived back to floor after heart cath, dressing to right groin puncture site is C/D/I, no s/s of pseudoaneurysm/hematoma. patient laying supine and can elevate HOB at 1500.
[2024-11-19] MEDS: IOPAMIDOL-370 (76%);100ML BOTTLE 150 ML IV (15:05)
[2024-11-19 15:08] LABS: CATHL Activated Clotting Time 339 SEC (74-125)
--- NOTE | 2024-11-20 10:45 | SW/DCPLANNER ---
Spoke with patient on the phone. Patient stated that he is doing well. Patient stated that he is aware of his upcoming appointments. Patient stated that he was able to get his new medicine picked up. Patient stated that he has no concerns or questions at this time. Jackie John
== END 2024-11-19 18:03 | disposition home health service (06) | DRG 323 ==
PROVIDERS: Internal Medicine; Physician Assistant; Student in an Organized Health Care Education/Training Program; Admitting Provider Internal Medicine Adolescent Medicine; PCP Family Medicine; Visit Provider Internal Medicine Adolescent Medicine
PROC: 4A023N7 Measurement of Cardiac Sampling and Pressure, Left Heart, Percutaneous Approach (ICD-10-PCS; CPT 93452; principal; 2024-11-19 11:30)
DX: I11.0 Hypertensive heart disease with heart failure (principal); I21.4 Non-ST elevation (NSTEMI) myocardial infarction; I50.33 Acute on chronic diastolic (congestive) heart failure; E78.5 Hyperlipidemia, unspecified; I48.0 Paroxysmal atrial fibrillation; F41.9 Anxiety disorder, unspecified; F32.A Depression, unspecified; G62.9 Polyneuropathy, unspecified; F17.210 Nicotine dependence, cigarettes, uncomplicated; I44.7 Left bundle-branch block, unspecified; I49.3 Ventricular premature depolarization; I25.10 Atherosclerotic heart disease of native coronary artery without angina pectoris; Z95.1 Presence of aortocoronary bypass graft; Z91.148 Patient's other noncompliance with medication regimen for other reason; Z91.199 Patient's noncompliance with other medical treatment and regimen due to unspecified reason; Z79.899 Other long term (current) drug therapy
CPT/HCPCS: 36415; 71045; 80053; 80061; 81001; 82803; 83036; 83605; 83735; 83880; 84443; 84484; 85025; 85347; 85610; 93005; 93306; 94640; 97116; 97162; 97166; 99152; 99153; C1725; C1760; C1761; C1769; C1874; C1894; J1200; J1644; J1650; J1938; J2003; J2250; J2405; J3010; J7040; Q9967

== ENCOUNTER 2024-11-27 10:28 | Outpatient (CLI) | payer MEDICARE, OTHER, SELFPAY ==
--- OUTSIDE RECORDS SUMMARY | 2024-11-27 10:32 | XMS_ITS | Data Portability ---
Author Organization [place] [facility] [employer] [employer], [facility] Address [address] [place] [address] Care Team Providers Care Diversional Therapist'S Assistant Name Role Phone CAMERON YAP Primary Care Provider CAMERON YAP Referring Provider FRANCISCO WOODY Referring Provider Assessment Encounter Date Assessment Date Assessment LastModified [...] mg tablet [address] [id number] [facility], [address] [place], [address], 6 11:32:17 Cheratussi n AC 10 mg-100 mg/5 mL oral liquid 2015 [address] [id number] [facility], [address] [place], [address], 6 11:32:17 ceftriaxon e 1 gram solution for injection 2015 016 tcalamari Not available 6 11:32:17 Patient TargetsNo targets recorded. Patient Instructions Encounter Date Encounter Id Patient Instructions Last Modified By Organization Details Last Modified Time 08/20/2015 [id number] bronchitis: care instructions tcalamari Not available 08/20/2015 [...] Address Organization Details Recorded Time Hypertensive disorder 38423156 Active Elsa Gabriel [facility] 6 08:24:26 Problem Notes None recorded. Procedures Surgical History Date Name Laterality Status Provider Name and Address Organization Details Recorded Time 5 Foot [facility] 08/20/2015 08:23:02 Imaging Results None recorded. Procedure [...] % 96 % 33.4 kg/m2 98.1 [degF] 678529. 84349 g 71 /min 175.26 cm 140 mm[Hg] 60 mm[Hg] Sinai Smith [facility] 6 08:49:28 Social History Question Answer Notes LastModified by [employer] ion Details LastModified Time Tobacco Smoking Status Current Every Day Smoker Elsa cardoza [facility] [place] 08/20/2015 08:24:26 Which Illicit Or Recreational [...] available 08/19 09:17:58 Medical History Condition Response Back pain Y High blood pressure Y Emphysema/COPD Y Arthritis Y Past Encounters Encounter ID Performer Location Encounter Start Date Encounter Closed Date Diagnosis/Indication Diagnosis SNOMED-CT Code Diagnosis ICD10 Code Diagnosis Note [id number] ROSHAN Temple [facility] [address] [place] [address] 08/20/2015 08:01:06 08/20/2015 09:34:57 Acute bronchitis 46938212 J20.9 Health Concerns Section Related Observation LastModified by Organization Detai ls LastModified Time None Recorded Concern Status LastModified by Organization Details LastModified Time None Recorded Advance Directives Directive None Recorded Payers Insurance Date Sequence Insurance Name Policy Number Policy [place] Covered Member ID [place] Member ID Guarantor Name 08/20/2015 2 [employer] (MEDICARE SUPPLEMENT) José Basurto [id number] José Basurto 04/07/2020 1 [place] José Basurto Jr [id number] José Basurto 08/20/2015 2 [place] José Basurto Jr [id number] José Basurto Notes Date Note Type Note Provider Name and Address Organization Details Recorded Time 08/20/2015 text/html Cough / ColdReported bypatient.Reason for visit:acute complaint Quality:productive ;deep;hacky Sputum Quality:yellow;whi te Severity:moderate Duration:intermitt ent Onset/Timin days ago Alleviating factors:nothing helps Aggravating factors:lying down Associated Symptoms:congestio n;cold/flu like symptoms;sore throat(last night); no fever; no post nasal drip ROSHAN Temple [address] [facility] [address], [place], [address], [facility] 08/20/2015 11:32:23
--- OUTSIDE RECORDS SUMMARY | 2024-11-27 10:32 | XMS_ITS | Data Portability ---
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 Plan of Treatment Reminders Order Date Submit Date Provider Last Modified By Organization Details Last Modified Time Details Appointments Medicare Annual Wellness 30min 2024 08:30A M Kirsty Mendoza MD Not available Not available Not available Lab PSA, total, serum or plasma 2023 024 EL[facility], [address], [address], [place], [address], 12/15/2023 08:23:59 CMP, serum or plasma 2023 024 ELIANA [facility], [address], [address], [place], [address], 12/15/2023 08:23:57 lipid panel, serum 2023 024 ELIANA [facility], [address], [address], [place], [address], 12/15/2023 08:23:57 CBC w/ auto diff 2023 024 ELIANA [facility], [address], [address], [place], [address], 12/15/2023 08:23:56 thyroid panel, serum 2023 024 ELIANA [facility], [address], [address], [place], [address], 12/15/2023 08:23:58 CMP, serum or plasma 2022 023 ELIANA [facility], [address], [address], [place], [address], 12/01/2022 04:09:02 PSA, total, serum or plasma 2022 023 ELIANA [facility], [address], [address], [place], [address], 12/01/2022 04:09:03 CBC w/ auto diff 2022 023 ELIANA [facility], [address], [address], [place], [address], 12/01/2022 04:09:00 CMP, serum or plasma 2022 023 [email or web address] [facility], [address], [address], [place], [address], 12/08/2022 10:12:09 lipid panel, serum 2022 023 ELIANA [facility], [address], [address], [place], [address], 12/01/2022 04:09:02 vitamin B12 + folate, serum or blood 2021 022 ELIANA [facility], [address], [address], [place], [address], 03/24/2022 08:20:24 Referral None recorded. Procedures None recorded. Surgeries None recorded. Imaging pharmacol ogic nuclear stress test 2023 024 [email or web address] [facility], [address], [place], [address], 03/28/2024 11:57:47 LDCT, chest, for lung cancer screening 2022 023 [email or web address] [facility] (Central[facility] Scheduling), [address], [place], [address], 01/26/2023 16:58:12 Medication Orders Lasix 40 mg tablet 2023 024 [facility], [address] [place] [address], [address], 12/06/2023 10:04:25 potassium chloride ER 10 mEq tablet,ex tended release 2023 024 [facility], [address] [place] [address], [address], 12/06/2023 10:04:26 Xarelto 20 mg tablet 2023 024 [facility], [address] [place] [address], [address], 12/06/2023 10:04:24 Advair Diskus 250 mcg-50 mcg/dose powder for inhalatio n 2023 024 [facility], [address] [place] [address], [address], 12/06/2023 10:04:29 Wixela Inhub 100 mcg-50 mcg/dose powder for inhalatio n 2023 024 [facility], [address] [place] [address], [address], 12/14/2023 10:11:45 duloxetin e 60 mg capsule,d elayed release 2023 024 [facility], [address] [place] [address], [address], 12/06/2023 09:10:56 triamcino lone acetonide 0.1 % topical ointment [email or web address], [address] [place], [address], 10/14/2023 11:11:19 ketoconaz ole 200 mg tablet [email or web address], [address] [place] [address], [address], 11/30/2022 10:16:25 Ozempic 0.25 mg or 0.5 mg (2 mg/1.5 mL) subcutane ous pen injector [id number] [place] [address], [address] [place] [address], [address], 11/30/2022 10:16:04 Patient TargetsNo targets recorded. Patient Instructions Encounter Date Encounter Id Patient Instructions Last Modified By Organization Details Last Modified Time 11/30/2022 [id number] advance directives: care instructions [email or web address] Not available 11/30/2022 11:20:29 Health Maintenance Recommendations: (5-10 year screening/prevent ion plan) Not available 11/30/2022 10:13:54 12/14/2023 [id number] advance directives: care instructions [email or web address] Not available 12/14/2023 10:23:41 Health Maintenance Recommendations: (5-10 year screening/prevent ion plan) [email or web address] Not available 12/14/2023 09:54:18 Reason for Referral None Reported. Results Created Date Observation Date Name Description Value Unit Range Abnormal Flag Note LastModifiedBy Organization Detail LastModifiedTime 03/23/2003/24/2022 VITAM IN B12 AND FOLAT E vitamin B12 609 pg/mL 232-12 45 Not Available [facility] ([facility] [place] [facility]) [address], [place], [place], [address], 03/24/2022 08:20:24 03/23/2003/24/2022 VITAM IN B12 AND FOLAT E folate (folic acid), serum 19.8 NG/mL >3.0 A serum folat e vicki ntrat ion of less than 3.1 ng/mL is consi dered to repre sent clini cade defic iency . Not Available [facility] ([facility] [place] [facility]) [address], [place], [place], [address], 03/24/2022 08:20:24 12/01/19 23 12/01/2022 CBC WITH DIFFE RENTI AL/PL ATELE T WBC 7.6 x10e3 /uL 3.4-10 .8 Not Available [facility] ([facility] [place] [facility]) [address] [place], [address], 12/01/2022 04:09:00 12/01/19 23 12/01/2022 CBC WITH DIFFE RENTI AL/PL ATELE T RBC 4.72 x10e6 /uL 4.14-5 .80 Not Available [facility] ([facility] [place] [facility]) [address] [place], [address], 12/01/2022 04:09:00 12/01/19 23 12/01/2022 CBC WITH DIFFE RENTI AL/PL ATELE T hemoglobin 13.8 g/dL 13.0-1 7.7 Not Available [facility] ([facility] [place] [facility]) [address] [place], [address], 12/01/2022 04:09:00 12/01/19 23 12/01/2022 CBC WITH DIFFE RENTI AL/PL ATELE T hematocrit 41.5 % 37.5-5 1.0 Not Available [facility] ([facility] [place] [facility]) [address] [place], [address], 12/01/2022 04:09:00 12/01/19 23 12/01/2022 CBC WITH DIFFE RENTI AL/PL ATELE T MCV 88 fL 79-97 Not Available [facility] ([facility] [place] [facility]) [address] [facility] [place], [address], 12/01/2022 04:09:00 12/01/19 23 12/01/2022 CBC WITH DIFFE RENTI AL/PL ATELE T MCH 29.2 pg 26.6-3 3.0 Not Available [facility] ([facility] [place] [facility]) [address], [place], [place], [address], 12/01/2022 04:09:00 12/01/19 23 12/01/2022 CBC WITH DIFFE RENTI AL/PL ATELE T MCHC 33.3 g/dL 31.5-3 5.7 Not Available [facility] ([facility] [place] [facility]) [address], [place], [place], [address], 12/01/2022 04:09:00 12/01/19 23 12/01/2022 CBC WITH DIFFE RENTI AL/PL ATELE T RDW 14.0 % 11.6-1 5.4 Not Available [facility] ([facility] [place] [facility]) [address], [place], [place], [address], 12/01/2022 04:09:00 12/01/1912/01/2022 CBC WITH DIFFE RENTI AL/PL ATELE T platelets 176 x10e3 /uL 150-45 0 Not Available [facility] ([facility] [place] [facility]) [address], [place], [place], [address], 12/01/2022 04:09:00 12/01/19 23 12/01/2022 CBC WITH DIFFE RENTI AL/PL ATELE T neutrophils 64 % not estab. Not Available [facility] ([facility] [place] [facility]) [address], [place], [place], [address], 12/01/2022 04:09:00 12/01/19 23 12/01/2022 CBC WITH DIFFE RENTI AL/PL ATELE T lymphs 20 % not estab. Not Available [facility] ([facility] [place] [facility]) [address], [place], [place], [address], 12/01/2022 04:09:00 12/01/19 23 12/01/2022 CBC WITH DIFFE RENTI AL/PL ATELE T monocytes 8 % not estab. Not Available [facility] ([facility] [place] [facility]) [address], [place], [place], [address], 12/01/2022 04:09:00 12/01/19 23 12/01/2022 CBC WITH DIFFE RENTI AL/PL ATELE T eos 7 % not estab. Not Available [facility] ([facility] [place] [facility]) [address], [place], [place], [address], 12/01/2022 04:09:00 12/01/19 23 12/01/2022 CBC WITH DIFFE RENTI AL/PL ATELE T basos 1 % not estab. 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 0 Not Available [facility] ([facility] [place] [facility]) [address] [place], [address], 12/01/2022 04:09:00 12/01/1912/01/2022 CBC WITH DIFFE RENTI AL/PL ATELE T lymphs (absolute) 1.5 x10e3 /uL 0.7-3. 1 Not Available [facility] ([facility] [place] [facility]) [address] [place], [address], 12/01/2022 04:09:00 12/01/19 23 12/01/2022 CBC WITH DIFFE RENTI AL/PL ATELE T monocytes(ab solute) 0.6 x10e3 /uL 0.1-0. 9 Not Available [facility] ([facility] [place] [facility]) [address], [place], [place], [address], 12/01/2022 04:09:00 12/01/19 23 12/01/2022 CBC WITH DIFFE RENTI AL/PL ATELE T eos (absolute) 0.5 x10e3 /uL 0.0-0. 4 above high normal Not Available [facility] ([facility] [place] [facility]) [address] [place], [address], 12/01/2022 04:09:00 12/01/19 23 12/01/2022 CBC WITH DIFFE RENTI AL/PL ATELE T baso (absolute) 0.1 x10e3 /uL 0.0-0. 2 Not Available [facility] ([facility] [place] [facility]) [address], [place], [place], [address], 12/01/2022 04:09:00 12/01/19 23 12/01/2022 CBC WITH DIFFE RENTI AL/PL ATELE T immature granulocytes 0 % not estab. Not Available [facility] ([facility] [place] [facility]) [address], [place], [place], [address], 12/01/2022 04:09:00 12/01/1912/01/2022 CBC WITH DIFFE RENTI AL/PL ATELE T immature grans (abs) 0.0 x10e3 /uL 0.0-0. 1 Not Available [facility] ([facility] [place] [facility]) [address] [place], [address], 12/01/2022 04:09:00 12/01/19 23 12/01/2022 CBC WITH DIFFE RENTI AL/PL ATELE T NRBC SHAKE LOADER Not Available [facility] ([facility] [place] [facility]) [address] [place], [address], 12/01/2022 04:09:00 12/01/19 23 12/01/2022 CBC WITH DIFFE RENTI AL/PL ROSALIND T hematology comments: SHAKE LOADER Not Available [facility] ([facility] [place] [facility]) [address], [place], [place], [address], 12/01/2022 04:09:00 12/01/19 23 12/01/2022 COMP. METAB OLIC PANEL (14) glucose 99 mg/dL 70-99 Not Available [facility] ([facility] [place] [facility]) [address], [place], [place], [address], 12/01/2022 04:09:02 12/01/19 23 12/01/2022 COMP. METAB OLIC PANEL (14) BUN 13 mg/dL 8-27 Not Available [facility] ([facility] [place] [facility]) [address], [place], [place], [address], 12/01/2022 04:09:02 12/01/19 23 12/01/2022 COMP. METAB OLIC PANEL (14) creatinine 1.07 mg/dL 0.76-1 .27 Not Available [facility] ([facility] [place] [facility]) [address] [place], [address], 12/01/2022 04:09:02 12/01/19 23 12/01/2022 COMP. METAB OLIC PANEL (14) eGFR 71 mL/mi n/1.7 3 >59 Not Available [facility] ([facility] [place] [facility]) [address], [place], [place], [address], 12/01/2022 04:09:02 12/01/19 23 12/01/2022 COMP. METAB OLIC PANEL (14) BUN/creatini ne ratio 12 10-24 Not Available [facility] ([facility] [place] [facility]) [address] [place], [address], 12/01/2022 04:09:02 12/01/19 23 12/01/2022 COMP. METAB OLIC PANEL (14) sodium 138 mmol/ L 134-14 4 Not Available [facility] ([facility] [place] [facility]) [address] [place], [address], 12/01/2022 04:09:02 12/01/19 23 12/01/2022 COMP. METAB OLIC PANEL (14) potassium 4.3 mmol/ L 3.5-5. 2 Not Available [facility] ([facility] [place] [facility]) [address] [place], [address], 12/01/2022 04:09:02 12/01/19 23 12/01/2022 COMP. METAB OLIC PANEL (14) chloride 102 mmol/ L 96-106 Not Available [facility] ([facility] [place] [facility]) [address] [place], [address], 12/01/2022 04:09:02 12/01/19 23 12/01/2022 COMP. METAB OLIC PANEL (14) carbon dioxide, total 24 mmol/ L 20-29 Not Available [facility] ([facility] [place] [facility]) [address] [place], [address], 12/01/2022 04:09:02 12/01/19 23 12/01/2022 COMP. METAB OLIC PANEL (14) calcium 9.2 mg/dL 8.6-10 .2 Not Available [facility] ([facility] [place] [facility]) [address], [place], [address], 12/01/2022 04:09:02 12/01/19 23 12/01/2022 COMP. METAB OLIC PANEL (14) protein, total 7.0 g/dL 6.0-8. 5 Not Available [facility] ([facility] [place] [facility]) [address], [place], [address], 12/01/2022 04:09:02 12/01/19 23 12/01/2022 COMP. METAB [...] 4.6 3.6 - 4.6 Not Available [facility] ([facility] [place] [facility]) [address] [place], [address], 12/01/2022 04:09:02 12/01/19 23 12/01/2022 COMP. METAB OLIC PANEL (14) globulin, total 3.2 g/dL 1.5-4. 5 Not Available [facility] ([facility] [place] [facility]) [address] [place], [address], 12/01/2022 04:09:02 12/01/19 23 12/01/2022 COMP. METAB OLIC PANEL (14) A/G ratio 1.2 1.2-2. 2 Not Available [facility] ([facility] [place] [facility]) [address] [place], [address], 12/01/2022 04:09:02 12/01/19 23 12/01/2022 COMP. METAB OLIC PANEL (14) bilirubin, total 0.4 mg/dL 0.0-1. 2 Not Available [facility] ([facility] [place] [facility]) [address], [place], [address], 12/01/2022 04:09:02 12/01/19 23 12/01/2022 COMP. METAB OLIC PANEL (14) alkaline phosphatase 116 IU/L 44-121 Not Available [facility] ([facility] [place] [facility]) [address] [place], [address], 12/01/2022 04:09:02 12/01/19 23 12/01/2022 COMP. METAB OLIC PANEL (14) AST (SGOT) 17 IU/L 0-40 Not Available [facility] ([facility] [place] [facility]) [address], [place], [address], 12/01/2022 04:09:02 12/01/19 23 12/01/2022 COMP. METAB OLIC PANEL (14) ALT (SGPT) 7 IU/L 0-44 Not Available [facility] ([facility] [place] [facility]) [address], [place], [address], 12/01/2022 04:09:02 12/01/19 23 12/01/2022 LIPID PANEL cholesterol, total 143 mg/dL 100-19 9 Not Available [facility] ([facility] [place] [facility]) [address], [place], [address], 12/01/2022 04:09:02 12/01/19 23 12/01/2022 LIPID PANEL triglyceride s 110 mg/dL 0-149 Not Available [facility] ([facility] [place] [facility]) [address], [place], [address], 12/01/2022 04:09:02 12/01/19 23 12/01/2022 LIPID PANEL HDL cholesterol 24 mg/dL >39 below low normal Not Available [facility] ([facility] [place] [facility]) [address], [place], [address], 12/01/2022 04:09:02 12/01/19 23 12/01/2022 LIPID PANEL VLDL cholesterol cade 21 mg/dL 5-40 Not Available [facility] ([facility] [place] [facility]) [address], [place], [place], [address], 12/01/2022 04:09:02 12/01/19 23 12/01/2022 LIPID PANEL LDL chol calc ([facility]) 98 mg/dL 0-99 Not Available [facility] ([facility] [place] [facility]) [address], [place], [place], [address], 12/01/2022 04:09:02 12/01/19 23 12/01/2022 LIPID PANEL comment: SHAKE LOADER Not Available [facility] ([facility] [place] [facility]) [address], [place], [place], [address], 12/01/2022 04:09:02 12/01/19 23 12/01/2022 PROST ATE-S [...] kits canno t be used inter duggan eageo . Resul ts canno t be inter prete d as absol [place] evide nce of the prese nce or absen ce of david hayes se. Not Available [facility] ([facility] [place] [facility]) [address], [place], [place], [address], 12/01/2022 04:09:03 12/14/19 24 12/15/2023 CBC WITH DIFFE RENTI AL/PL ATELE T WBC 8.1 x10e3 /uL 3.4-10 .8 Not Available [facility] ([facility] [place] [facility]) [address], [place], [place], [address], 12/15/2023 08:23:56 12/14/19 24 12/15/2023 CBC WITH DIFFE RENTI AL/PL ATELE T RBC 5.01 x10e6 /uL 4.14-5 .80 Not Available [facility] ([facility] [place] [facility]) [address], [place], [place], [address], 12/15/2023 08:23:56 12/14/19 24 12/15/2023 CBC WITH DIFFE RENTI AL/PL ATELE T hemoglobin 14.3 g/dL 13.0-1 7.7 Not Available [facility] ([facility] [place] [facility]) [address], [place], [place], [address], 12/15/2023 08:23:56 12/14/19 24 12/15/2023 CBC WITH DIFFE RENTI AL/PL ATELE T hematocrit 44.1 % 37.5-5 1.0 Not Available [facility] ([facility] [place] [facility]) [address] [place], [address], 12/15/2023 08:23:56 12/14/19 24 12/15/2023 CBC WITH DIFFE RENTI AL/PL ATELE T MCV 88 fL 79-97 Not Available [facility] ([facility] [place] [facility]) [address] [place], [address], 12/15/2023 08:23:56 12/14/19 24 12/15/2023 CBC WITH DIFFE RENTI AL/PL ATELE T MCH 28.5 pg 26.6-3 3.0 Not Available [facility] ([facility] [place] [facility]) [address] [place], [address], 12/15/2023 08:23:56 12/14/19 24 12/15/2023 CBC WITH DIFFE RENTI AL/PL ATELE T MCHC 32.4 g/dL 31.5-3 5.7 Not Available [facility] ([facility] [place] [facility]) [address], [place], [place], [address], 12/15/2023 08:23:56 12/14/19 24 12/15/2023 CBC WITH DIFFE RENTI AL/PL ATELE T RDW 13.8 % 11.6-1 5.4 Not Available [facility] ([facility] [place] [facility]) [address], [place], [place], [address], 12/15/2023 08:23:56 12/14/19 24 12/15/2023 CBC WITH DIFFE RENTI AL/PL ATELE T platelets 192 x10e3 /uL 150-45 0 Not Available [facility] ([facility] [place] [facility]) [address], [place], [place], [address], 12/15/2023 08:23:56 12/14/19 24 12/15/2023 CBC WITH DIFFE RENTI AL/PL ATELE T neutrophils 67 % not estab. Not Available [facility] ([facility] [place] [facility]) [address], [place], [place], [address], 12/15/2023 08:23:56 12/14/19 24 12/15/2023 CBC WITH DIFFE RENTI AL/PL ATELE T lymphs 19 % not estab. Not Available [facility] ([facility] [place] [facility]) [address], [place], [place], [address], 12/15/2023 08:23:56 12/14/19 24 12/15/2023 CBC WITH DIFFE RENTI AL/PL ATELE T monocytes 7 % not estab. Not Available [facility] ([facility] [place] [facility]) [address], [place], [place], [address], 12/15/2023 08:23:56 12/14/19 24 12/15/2023 CBC WITH DIFFE RENTI AL/PL ATELE T eos 6 % not estab. Not Available [facility] ([facility] [place] [facility]) [address], [place], [place], [address], 12/15/2023 08:23:56 12/14/19 24 12/15/2023 CBC WITH DIFFE RENTI AL/PL ATELE T basos 1 % not estab. 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 0 Not Available [facility] ([facility] [place] [facility]) [address] [place], [address], 12/15/2023 08:23:56 12/14/19 24 12/15/2023 CBC WITH DIFFE RENTI AL/PL ATELE T lymphs (absolute) 1.6 x10e3 /uL 0.7-3. 1 Not Available [facility] ([facility] [place] [facility]) [address] [place], [address], 12/15/2023 08:23:56 12/14/19 24 12/15/2023 CBC WITH DIFFE RENTI AL/PL ATELE T monocytes(ab solute) 0.6 x10e3 /uL 0.1-0. 9 Not Available [facility] ([facility] [place] [facility]) [address] [place], [address], 12/15/2023 08:23:56 12/14/19 24 12/15/2023 CBC WITH DIFFE RENTI AL/PL ATELE T eos (absolute) 0.5 x10e3 /uL 0.0-0. 4 above high normal Not Available [facility] ([facility] [place] [facility]) [address] [place], [address], 12/15/2023 08:23:56 12/14/19 24 12/15/2023 CBC WITH DIFFE RENTI AL/PL ATELE T baso (absolute) 0.1 x10e3 /uL 0.0-0. 2 Not Available [facility] ([facility] [place] [facility]) [address], [place], [place], [address], 12/15/2023 08:23:56 12/14/19 24 12/15/2023 CBC WITH DIFFE RENTI AL/PL ATELE T immature granulocytes 0 % not estab. Not Available [facility] ([facility] [place] [facility]) [address], [place], [place], [address], 12/15/2023 08:23:56 12/14/19 24 12/15/2023 CBC WITH DIFFE RENTI AL/PL ATELE T immature grans (abs) 0.0 x10e3 /uL 0.0-0. 1 Not Available [facility] ([facility] [place] [facility]) [address], [place], [place], [address], 12/15/2023 08:23:56 12/14/19 24 12/15/2023 CBC WITH DIFFE RENTI AL/PL ATELE T NRBC SHAKE LOADER Not Available [facility] ([facility] [place] [facility]) [address], [place], [place], [address], 12/15/2023 08:23:56 12/14/19 24 12/15/2023 CBC WITH DIFFE RENTI AL/PL ATELE T hematology comments: SHAKE LOADER Not Available [facility] ([facility] [place] [facility]) [address], [place], [place], [address], 12/15/2023 08:23:56 12/14/19 24 12/15/2023 COMP. METAB OLIC PANEL (14) glucose 99 mg/dL 70-99 Not Available [facility] ([facility] [place] [facility]) [address], [place], [place], [address], 12/15/2023 08:23:57 12/14/19 24 12/15/2023 COMP. METAB OLIC PANEL (14) BUN 23 mg/dL 8-27 Not Available [facility] ([facility] [place] [facility]) [address], [place], [place], [address], 12/15/2023 08:23:57 12/14/19 24 12/15/2023 COMP. METAB OLIC PANEL (14) creatinine 1.20 mg/dL 0.76-1 .27 Not Available [facility] ([facility] [place] [facility]) [address], [place], [place], [address], 12/15/2023 08:23:57 12/14/19 24 12/15/2023 COMP. METAB OLIC PANEL (14) eGFR 62 mL/mi n/1.7 3 >59 Not Available [facility] ([facility] [place] [facility]) [address], [place], [place], [address], 12/15/2023 08:23:57 12/14/19 24 12/15/2023 COMP. METAB OLIC PANEL (14) BUN/creatini ne ratio 19 10-24 Not Available [facility] ([facility] [place] [facility]) [address], [place], [place], [address], 12/15/2023 08:23:57 12/14/19 24 12/15/2023 COMP. METAB OLIC PANEL (14) sodium 139 mmol/ L 134-14 4 Not Available [facility] ([facility] [place] [facility]) [address] [place], [address], 12/15/2023 08:23:57 12/14/19 24 12/15/2023 COMP. METAB OLIC PANEL (14) potassium 4.2 mmol/ L 3.5-5. 2 Not Available [facility] ([facility] [place] [facility]) [address], [place], [place], [address], 12/15/2023 08:23:57 12/14/19 24 12/15/2023 COMP. METAB OLIC PANEL (14) chloride 99 mmol/ L 96-106 Not Available [facility] ([facility] [place] [facility]) [address], [place], [address], 12/15/2023 08:23:57 12/14/19 24 12/15/2023 COMP. METAB OLIC PANEL (14) carbon dioxide, total 22 mmol/ L 20-29 Not Available [facility] ([facility] [place] [facility]) [address] [place], [address], 12/15/2023 08:23:57 12/14/19 24 12/15/2023 COMP. METAB OLIC PANEL (14) calcium 9.3 mg/dL 8.6-10 .2 Not Available [facility] ([facility] [place] [facility]) [address] [place], [address], 12/15/2023 08:23:57 12/14/19 24 12/15/2023 COMP. METAB OLIC PANEL (14) protein, total 7.2 g/dL 6.0-8. 5 Not Available [facility] ([facility] [place] [facility]) [address], [place], [address], 12/15/2023 08:23:57 12/14/19 24 12/15/2023 COMP. METAB OLIC PANEL (14) albumin 4.0 g/dL 3.8-4. 8 Not Available [facility] ([facility] [place] [facility]) [address], [place], [address], 12/15/2023 08:23:57 12/14/19 24 12/15/2023 COMP. METAB OLIC PANEL (14) globulin, total 3.2 g/dL 1.5-4. 5 Not Available [facility] ([facility]) [address], [place], [address], 12/15/2023 08:23:57 12/14/19 24 12/15/2023 COMP. METAB OLIC PANEL (14) bilirubin, total 0.4 mg/dL 0.0-1. 2 Not Available [facility] ([facility]) [address], [place], [place], [address], 12/15/2023 08:23:57 12/14/19 24 12/15/2023 COMP. METAB OLIC PANEL (14) alkaline phosphatase 120 IU/L 44-121 Not Available [facility] ([facility]) [address], [place], [place], [address], 12/15/2023 08:23:57 12/14/19 24 12/15/2023 COMP. METAB OLIC PANEL (14) AST (SGOT) 16 IU/L 0-40 Not Available [facility] ([facility]) [address], [place], [place], [address], 12/15/2023 08:23:57 12/14/19 24 12/15/2023 COMP. METAB OLIC PANEL (14) ALT (SGPT) 10 IU/L 0-44 Not Available [facility] ([facility] [place] [facility]) [address], [place], [place], [address], 12/15/2023 08:23:57 12/14/19 24 12/15/2023 LIPID PANEL cholesterol, total 142 mg/dL 100-19 9 Not Available [facility] ([facility] [place] [facility]) [address], [place], [place], [address], 12/15/2023 08:23:57 12/14/19 24 12/15/2023 LIPID PANEL triglyceride s 87 mg/dL 0-149 Not Available [facility] ([facility] [place] [facility]) [address] [place], [address], 12/15/2023 08:23:57 12/14/19 24 12/15/2023 LIPID PANEL HDL cholesterol 30 mg/dL >39 below low normal Not Available [facility] ([facility] [place] [facility]) [address] [place], [address], 12/15/2023 08:23:57 12/14/19 24 12/15/2023 LIPID PANEL VLDL cholesterol cade 17 mg/dL 5-40 Not Available [facility] ([facility] [place] [facility]) [address] [place], [address], 12/15/2023 08:23:57 12/14/19 24 12/15/2023 LIPID PANEL LDL chol calc ([facility]) 95 mg/dL 0-99 Not Available [facility] ([facility] [place] [facility]) [address] [place], [address], 12/15/2023 08:23:57 12/14/19 24 12/15/2023 LIPID PANEL 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 Not Available [facility] ([facility] [place] [facility]) [address] [place], [address], 12/15/2023 08:23:57 12/14/19 24 12/15/2023 THYRO ID PANEL WITH TSH TSH 1.220 uIU/m L 0.450- 4.500 Not Available [facility] ([facility] [place] [facility]) [address] [place], [address], 12/15/2023 08:23:58 12/14/19 24 12/15/2023 THYRO ID PANEL WITH TSH thyroxine (T4) 7.2 ug/dL 4.5-12 .0 Not Available [facility] ([facility] [place] [facility]) [address] [place], [address], 12/15/2023 08:23:58 12/14/19 24 12/15/2023 THYRO ID PANEL WITH TSH T3 uptake 31 % 24-39 Not Available [facility] ([facility] [place] [facility]) [address] [place], [address], 12/15/2023 08:23:58 12/14/19 24 12/15/2023 THYRO ID PANEL WITH TSH free thyroxine index 2.2 1.2-4. 9 Not Available [facility] ([facility] [place] [facility]) [address] [place], [address], 12/15/2023 08:23:58 12/14/19 24 12/15/2023 PROST ATE-S [...] t be inter prete d as absol [place] evide nce of the prese nce or absen ce of david navarro se. Not Available [facility] ([facility] [place] [facility]) [address], [place], [place], [address], 12/15/2023 08:23:59 04/06/20 22 04/05/2022 MRI, lumba r spine , w/o contr ast No observ ation record ed. [facility] [address] [facility] [address], [place], [address], 04/06/2022 09:48:22 04/26/20 22 04/26/2022 MRI, brain , w/o contr ast No observ ation record ed. [email or web address] [facility] [address] [facility] [address], [place], [address], 05/03/2022 08:24:44 11/25/19 23 10/31/2014 DEXA No observ ation record ed. [email or web address] Not Available 17:09:05 12/15/19 24 12/15/2023 elect jaime irizarry am No observ ation record ed. [facility] [address] [facility] [address], [place], [address], 12/15/2023 16:23:03 12/15/19 24 12/06/2023 elect rocar diogr am No observ ation record ed. [facility] [address], [place], [address], 12/15/2023 16:22:37 03/07/20 24 03/07/2024 XR, chest No observ ation record ed. [address] (Radiology) [address] , [place], [address], 03/09/2024 11:18:01 11/18/19 25 11/16/2024 elect rocar diogr am, routi ne ECG, 12 leads min No observ ation record ed. [address], [place], [address], 11/19/2024 08:56:47 11/18/19 25 11/15/2024 elect rocar diogr am, routi ne ECG, 12 leads min No observ ation record ed. [address], [place], [address], 11/19/2024 08:56:37 Result Notes None recorded. Problems Name Problem SNOMED Code Status Onset Date Resolution Date Notes Provider Name and Address Organization Details Recorded Time Obesity 933764659 Active Bing Couch null, [place] [facility] [place] & [place] 2 11:27:47 Degenerati on of lumbar interverte bral disc 61317164 Active Bing Couch [place] & [place] 2 11:27:47 Low back pain 139349204 Active 2011 Bing Couch [place], [place] 2 11:27:47 Neuropathy 583280921 Active Bing Couch [place] 2 11:27:47 Pruritic disorder 678348480 Active 2010 Bing Couch [place] 2 11:27:47 Benign essential hypertensi on 7121362 Active 2010 Bing Couch [place] 2 11:27:47 First degree atrioventr icular block 992261003 Active Bing Baronech [place] 2 11:27:47 Chronic pain 68714260 Active Bing Lizabethch [place] 2 11:27:47 Generalize d anxiety disorder 38097954 Active 2011 Bing Lizabethch [place] 2 11:27:47 Long-term current use of drug therapy 641150079 Active Bing Couch [place] 2 11:27:47 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 027367435 Active 2010 Bing Couch [place] 2 11:27:47 Contact dermatitis 14138977 Active 2011 Bing Lizabethch [place] 2 11:27:47 Coronary arterioscl erosis 66943575 Active Bing Couch [place] 2 11:27:47 Disorder of cardiovasc ular system 43768369 Active Bing Couch [place] 2 11:27:47 Acute bronchitis 03964775 Active Bing Couch [place] 2 11:27:47 Hypertensi ve disorder 86193038 Active Bing Couch [place] 2 11:27:47 Kyphosis of thoracic spine 821243783 Active Bing Couch [place] & [place] 2 11:27:47 Chronic pain syndrome 858748562 Active Bing Couch [place] 2 11:27:47 Arthritis of right knee 5752697472985 102 Active Bing Couch [place] 2 11:27:47 Coronary arterioscl erosis in [place] artery 0139606204913 Active Bing Couch [place] 2 11:27:47 Chronic obstructiv e pulmonary disease 06087202 Active 2011 Bing Couch [place] 2 11:27:47 Morbid obesity 293474472 Active Bing Couch [place] 2 11:27:48 Arthritis of left knee 8608087454190 104 Active Bing Couch [place] 2 11:27:48 Tobacco dependence syndrome 60560057 Active Bing Couch [place] 2 11:27:48 Eruption 822155708 Active 2010 Bing Couch [place] 2 11:27:48 Abnormal gait 05943171 Active Bing Couch [place] 2 11:27:48 Sinusitis 16761939 Active Bing Couch [place] 2 11:27:48 Osteopenia 103942616 Active Bing Couch [place] 2 11:27:48 Hereditary peripheral neuropathy 63304210 Active 2010 Bing Couch [place] 2 11:27:48 Hyperlipid emia 64835799 Active Bing Couch [place] 2 11:27:48 Injury of tendon 289932008 Active Bing cardoza, [place] 2 11:27:48 Aortic aneurysm 57585139 Active 2011 Bing cardoza, [place] 2 11:27:48 Cigarette smoker 98290996 Active 2023 Doron Nicholas MD [address] [place], [address] , [place] [facility] & [place] 4 09:35:07 Dyspnea 841955714 Active 2023 Doron Nicholas MD [address] [facility] [address] , [place] [facility] & [place] 4 09:39:15 Coronary atheroscle rosis 763954378 Active 2023 Doron Nicholas MD [address] [facility] [address] , [place] [facility] & [place] 4 09:39:43 Paroxysmal atrial fibrillati on 191076212 Active 2023 Doron Nicholas MD [address] [place], [address] , [place] [facility] [facility] & [place] 4 10:01:02 Ischemic congestive cardiomyop athy 385070044 Active 2023 Doron Nicholas MD [address] [place], [address] , [place] [facility] & [place] 4 10:02:51 Notes:Some problems listed i n Document: #[id number] could not be added to this patient's chart. Please review this document and add these problems to the patient's chart manually as needed. Problem Notes None recorded. Procedures Surgical History Date Name Laterality Status Provider Name and Address Organization Details Recorded Time 2 cervical arthrodesis completed Gianna Cordon [place] 11/26/2024 13:52:09 9 CABG completed Luz Maria Garza- SUSAN [place] [facility] & [place] 11/24/2022 16:56:29 8 procedure completed Luz Maria Garza- RUST [place] [facility] & [place] 11/24/2022 16:57:32 repair of tendo achilles completed Luz Maria Garza- RUST [place] [facility] [place] & [place] 11/24/2022 16:55:48 Imaging Results None recorded. Procedure [...] Updated DateTime 4 177.8 cm 34.3 kg/m2 214178. 58 g 98.1 [degF] 96 % 96 % 60 /min 134 mm[Hg] 76 mm[Hg] [facility] 4 11:09:59 Date Recorded Body height Body mass index (BMI) Body weight Body temperature Oxygen saturation Oxygen saturation in Arterial blood by Pulse oximetry Heart rate Systolic blood pressure Diastolic blood pressure Provider Name and Address Organization Details Last Updated DateTime 3 177.8 cm 32.4 kg/m2 128600. 88 g 97.5 [degF] 89 % 89 % 81 /min 124 mm[Hg] 70 mm[Hg] [facility] & [place] 3 10:18:16 Date Recorded Body height Body mass index (BMI) Body weight Oxygen saturation Oxygen saturation in Arterial blood by Pulse oximetry Heart rate Systolic blood pressure Diastolic blood pressure Provider Name and Address Organization Details Last Updated DateTime 4 177.8 cm 33 kg/m2 978386. 25 g 97 % 97 % 41 /min 128 mm[Hg] 78 mm[Hg] Briana Man [facility] & [place] 4 09:13:04 Date Recorded Body height Body mass index (BMI) Body weight Body temperature Oxygen saturation Oxygen saturation in Arterial blood by Pulse oximetry Heart rate Systolic blood pressure Diastolic blood pressure Provider Name and Address Organization Details Last Updated DateTime 4 177.8 cm 32.1 kg/m2 004637. 69 g 97.3 [degF] 96 % 96 % 64 /min 156 mm[Hg] 84 mm[Hg] Bing AVITIA [facility] & [place] 4 10:11:07 Date Recorded Body weight Body mass index (BMI) Body height Body temperature Oxygen saturation Oxygen saturation in Arterial blood by Pulse oximetry Heart rate Systolic blood pressure Diastolic blood pressure Provider Name and Address Organization Details Last Updated DateTime 2 494314. 32 g 35.4 kg/m2 177.8 cm 98.2 [degF] 95 % 95 % 67 /min 120 mm[Hg] 70 mm[Hg] Bing AVITIA [facility] & [place] 2 11:27:32 Social History Question Answer Notes LastModified by Organizat ion Details LastModified Time Tobacco Smoking Status Current Every Day Smoker Bing Vázquez [facility] & [place] 03/23/2022 11:35:49 Do You Have An Advance Directive? Yes [email or web address] Information not available 11/30/2022 Are You Blind Or Do You Have Difficulty Seeing? No [email or web address] Information not available 11/30/2022 What Is Your Level Of Caffeine Consumption? Moderate [email or web address] Information not available 12/06/2023 Are You Deaf Or Do You Have Serious Difficulty Hearing? Yes [email or web address] Information not available 12/14/2023 What Type Of Diet Are You Following? REGULAR Information not available 11/30/2022 Have There Been Any Changes To Your Family Or Social Situation? No Information not available 11/30/2022 In General, Would You Say Your Health Is Good [email or web address] Information not available 12/14/2023 How Would You Describe The Condition Of Your Mouth And Teeth i ncluding False Teeth Or Dentures? Fair [email or web address] Information not available 12/14/2023 Each Night, How Many Hours Of Sleep Do You Usually Get? 5-6 Hours [email or web address] Information not available 12/14/2023 Do You Snore Or Has Anyone Told You That You Snore? No [email or web address] Information not available 11/30/2022 In The Past 7 Days, How Often Have You [place] Sleepy During The Daytime? Always [email or web address] Information not available 11/30/2022 Do You Have Chronic Pain? Yes [email or web address] Information not available 11/30/2022 If Yes, Location Of Pain Back [email or web address] Information not available 11/30/2022 In The Past 7 Days, How Would You Rate Your Pain? Moderate Pain(4-6) [email or web address] Information not available 11/30/2022 Are You In A Pain Management Program? No [email or web address] Information not available 11/30/2022 Do You Take Opioids For Your Pain? No [email or web address] Information not available 11/30/2022 How Often Is Stress A Problem For You In Handling Such Things As: Your Health, Your Finances, Your Family And Social Relationships, Your Work? Sometimes [email or web address] Information not available 11/30/2022 How Often Do You Get The Social And Emotional Support You Need: Usually [email or web address] Information not available 11/30/2022 In The Past 7 Days, Did You Need Help From Others To Take Care Of Things Such As Laundry And Housekeep- Ing, Banking, Shopping, Using The Telephone, Food Preparation, Transportation, Or Taking Your Own Medications? Yes Information not available 11/30/2022 Do You Live Alone? No [email or web address] Information not available 11/30/2022 Does Your Home Have Any Fall Risks (un-level Floors, Unfastened Rugs, Poor Lighting, Etc)? No Information not available 11/30/2022 Do You Feel Safe At Home? Yes [email or web address] Information not available 12/14/2023 What Is Your Current Pack Years? [email or web address] ears [email or web address] Information not available 03/23/2022 What Is Your Relationship Status? [email or web address] Information not available 11/30/2022 Do You Use Your Seat Belt Or Car Seat Routinely? Yes Information not available 11/30/2022 Do You Have Smoke And Carbon Monoxide Detectors In Your Home? Yes Information not available 11/30/2022 At What Age Did You Start Smoking Tobacco? 17 Reduced To 11-15 A Day [email or web address] Information not available 03/23/2022 How Much Tobacco Do You Smoke? 1 PPD [email or web address] Information not available 03/23/2022 How Many Years Have You Smoked Tobacco? 60 Information not available 12/14/2023 Do You Have Difficulty Walking Or Climbing Stairs? Yes [email or web address] Information not available 11/30/2022 Sex: Male Functional Status Question Answer Note LastModified by Organizat ion Details LastModified Time Do you use any illicit or recreational drugs? No Information not available 12/06/2023 What is your level of alcohol consumption? None [email or web address] Information not available 03/23/2022 Do you have transportation difficulties? No [email or web address] Information not available 11/30/2022 Are you able to walk? YESASSIST [email or web address] Information not available 11/30/2022 Do you have difficulty doing errands alone? Yes [email or web address] Information not available 11/30/2022 Are you able to care for yourself? Yes [email or web address] Information not available 11/30/2022 Do you have difficulty dressing or bathing? No Information not available 11/30/2022 What is your exercise level? None [email or web address] Information not available 11/30/2022 Mental Status Question Answer Note LastModified by Organizat ion Details LastModified Time Do you feel stressed (tense, restless, nervous, or anxious, or unable to sleep at night)? [id number] [email or web address] Information not available 11/30/2022 Do you have difficulty concentrating, remembering or making decisions? No [email or web address] Information no t available 11/30/2022 Family History Relationship Description Onset Age of this Age Resolved Age Notes LastModified by Organization Details LastModified Time Father Malignant neoplastic disease [email or web address] Not available 2023 09:34:23 Mother Malignant neoplastic disease [email or web address] Not available 2023 09:34:23 Mother Alzheimer's disease [email or web address] Not available 2024 13:58:27 Brother Malignant neoplastic disease [email or web address] Not available 2024 13:58:53 Medical History Condition Response Anxiety Disorder Y Coronary Artery Disease Y Heart Problems Other Y Obesity Y Arthritis Y Eczema Y Asthma Y COPD Y Depression Y High Cholesterol Y Heart Disease Y Hypertension Y Osteoporosis Immunizations Vaccine Type Date Status Note Provider Nam e and Address Organization Details Recorded Time Influenza, high-dose, quadrivalent, PF 2 completed Luz Maria Garza- [facility] [place], [place] 11/24/2022 16:55:19 COVID-19, mRNA, LNP-S, PF, 100 mcg/0.5mL dose or 50 mcg/0.25mL dose 2 completed Luz Maria Garza- [place] & [place] 11/24/2022 16:55:19 COVID-19, mRNA, LNP-S, bivalent, PF, 50 mcg/0.5 mL or 25mcg/0.25 mL dose 2 completed Luz Maria Garza- [place] 11/24/2022 16:55:19 Influenza, high-dose, trivalent, PF 7 completed Luz Maria Garza- [place] 11/24/2022 16:55:19 Influenza, adjuvanted, trivalent, PF 9 completed Chrissy Mccormack [place] 10/12/2023 09:32:07 Influenza, adjuvanted, trivalent, PF 8 completed Chrissy [place] 10/12/2023 09:32:07 zoster recombinant 1 completed Chrissy Mccormack [place] 10/12/2023 09:32:07 COVID-19, mRNA, LNP-S, PF, 100 mcg/0.5mL dose or 50 mcg/0.25mL dose 1 completed Chrissy Mccormack [place] 10/12/2023 09:32:07 COVID-19, mRNA, LNP-S, PF, 100 mcg/0.5mL dose or 50 mcg/0.25mL dose 1 completed Chrissy [place] 10/12/2023 09:32:07 COVID-19, mRNA, LNP-S, PF, 100 mcg/0.5mL dose or 50 mcg/0.25mL dose 1 completed Chrissy [place] 10/12/2023 09:32:08 pneumococcal polysaccharide PPV23 1 completed Chrissy [place] 10/12/2023 09:32:08 Tdap 0 completed Chrissy [place] 10/12/2023 09:32:08 Pneumococcal conjugate PCV 13 9 completed Chrissy [place] 10/12/2023 09:32:08 Influenza, high-dose, trivalent, PF 5 completed Chrissy [place] 10/12/2023 09:32:08 Influenza, split virus, quadrivalent, PF 1 completed Chrissy [place] 10/12/2023 09:32:08 Influenza, split virus, quadrivalent, PF 0 completed Chrissy [place] 10/12/2023 09:32:08 Past Encounters Encounter ID Performer Location Encounter Start Date Encounter Closed Date Diagnosis/Indication Diagnosis SNOMED-CT Code Diagnosis ICD10 Code Diagnosis Note [id number] MD Ramsey Garcia [facility] [address] [facility] [address] [place] [address] 03/23/2022 11:14:02 03/23/2022 11:56:51 Morbid obesity 342859884 E66.01 Neuropathy 439651310 G62 .9 Candidiasis of skin 4988 3006 B37.2 [id number] Kirsty Mendoza MD [facility] [address] [facility] [address] [place] [address] 11/30/2022 09:53:28 11/30/2022 11:01:07 Tobacco dependence syndrome 64581455 F17.210 Obesity 446739991 E66.9 Adult heal th examination 168924559 Z00.00 Discussed need for living well with [...] disorder 3548 9007 F32.A Low back pain 349697310 M54.50 Nocturia 860328305 R35.1 Eczema 43577074 L30.9 [id number] Kirsty Mendoza MD [facility] [address] [facility] [address] [place] [address] 10/14/2023 10:49:14 10/14/2023 11:48:09 Chronic low back pain 136362695 M54.50 Depressive disorder 3548 9007 F32.A Asthma 936901467 J45.90 9 [id number] Kirsty Mendoza MD [facility] [address] [place] [address] 12/14/2023 09:49:36 12/14/2023 10:41:44 Adult health examination 055304304 Z00.00 Discussed need for living well with [...] of continued nicotine abuse. Paroxysmal atrial fibrillation 906077420 I48.0 Ischemic c ongestive cardiomyopathy 112316012 I25.5 Nocturia 309946882 R35.1 Tobacco de pendence syndrome 51611394 F17.672 [id number] Doron Nicholas MD [facility] [address] [place] [address] 12/06/2023 08:55:25 12/06/2023 10:21:12 Cigarette smoker 70462398 F17.210 Complete smoking cessation strongly urged.Risk s associated with smoking including cardiovasc ular affects of MA stroke in addition to high risk of long bladder and other cancers were discussed. Tips and resources provided as noted below We discuss many products that can help you quit smoking. These products include a nicotine patch, gum, lozenge, nasal spray, and inhaler or other prescripti on medication she has not motivated to quit at this point For more helpful tips and resources, visit:[facility] [place]' s smoke-free programs at www.smokef ree.gov 877-44U-QU IT ) Total of 7 minutes were spent discussing the above Chronic ob structive pulmonary disease 04383844 J44.9 Coronary atherosclerosis 205105148 I25.700 LVEF 45% with wall motion abnormalit ies. Will order stress test for ischemic evaluation .continue aggressive risk factor modificati on Dyspnea 283394700 R06.00 Given clinical presentati on and risk profile , will get stress test for ischemic evaluation and risk stratifica tion Paroxysmal atrial fibrillation 768112465 I48.0 rates well controlled . Will start Xarelto. Ischemic c ongestive cardiomyopathy 696842537 I25.5 LVEF around 45% possibly ischemic, stress test pendingcli nically well compensate d Noncomplia nce with medication regimen 292970899 Z91.148 he has been noncomplia nt with his medication s including statin and anticoagul ation. Health Concerns Section Related Observation LastModified by Organization Detai ls LastModified Time None Recorded Concern Status LastModified by Organization Details LastModified Time None Recorded Advance Directives Directive Y: Payers Insurance Date Sequence Insurance Name Policy Number Policy [place] Covered Member ID [place] Member ID Guarantor Name 10/14/2023 2 [employer] (MEDICARE SUPPLEMENT) José Basurto [id number] José Basurto 11/26/2024 1 [place] José Basurto Jr [id number] José Basurto Notes Date Note Type Note [...] He is primarily wheelchair-bound due to his Kirsty Mendoza MD [address], [place], [address], [facility] & [place] 03/23/2022 12:53:18 3 text/html He is here for Medicare annual wellness exam discuss his medical problems. He is history of chronic neck and back pain. , depression, COPD with continued nicotine abuse, obesity. He had surgery down a [place] for his neck and seems to be doing much better. He is currently off all narcotic prescriptions but still taking Lyrica. Currently on Cymbalta for his depressive disorder seems to be doing well. His past medical history, social history, surgical history, family history reviewed and preventive maintenance strategies discussed with the patient. Kirsty Mendoza MD [address], [place], [address], [facility] & [place] 11/30/2022 11:21:18 4 text/html He is here for follow-up. He and his girlfriend who moved back to [place] after the winter in [place]. He is history of chronic low back pain followed by pain management in [place], depression, asthma. He continues get Lyrica from his pain medicine physician in [place]. He needs a new power mobility device. [...] of asthma needs refill of his inhaler. Kirsty Mendoza MD [address], [place], [address], [facility] & [place] 10/14/2023 11:54:43 4 text/html 78 M here [...] AI, mild MR. social history: He is pins [place] in [place], Doron Nicholas MD [address], [place], [address], [facility] & [place] 12/06/2023 16:49:48 4 text/html He is here [...] reviewed and preventive maintenance strategies discussed patient. Kirsty Mendoza MD [address], [place], [id number], [facility] - [facility] - [place] & [place] 12/14/2023 12:40:16
--- OUTSIDE RECORDS SUMMARY | 2024-11-27 10:33 | XMS_ITS | Data Portability ---
Author Organization [facility]14 [place], Main Office Address [address] [facility] [facility] [address] [place] [address] Care Team Providers Care Digital Cartographer Name Role Phone VIOLETA WEST OTHER CANDY [...] DO Not Attach Compendium, Do Not Delete/merge, [id number] 0 12:11:01 Medication Orders None recorded. Patient TargetsNo targets recorded. Patient Instructions Encounter Date Encounter Id Patient Instructions Last Modified By Organization Details Last Modified Time 08/01/2019 [id number] high blood pressure: care instructions vluu Not available 08/01/2019 12:02:26 learning about high blood pressure vluu Not available 08/01/2019 12:02:27 high cholesterol : care instructions vluu Not available 08/01/2019 12:02:26 heart failure: care instructions vluu Not available 08/01/2019 12:02:27 learning about heart failure vluu Not available 08/01/2019 12:02:27 04/24/2021 [id number] high blood pressure: care instructions vluu Not available 04/24/2021 12:12:47 learning about high blood pressure vluu Not available 04/24/2021 12:12:48 high cholesterol : care instructions vluu Not available 04/24/2021 12:12:47 heart failure: care instructions vluu Not available 04/24/2021 12:12:47 learning about heart failure vluu Not available 04/24/2021 12:12:48 07/01/2021 [id number] high blood pressure: care instructions vluu Not [...] mmol/ L 136-14 5 Not Available Physicians [address], [address], 04/29/2021 13:37:57 04/29/20 21 04/29/2021 BMPWT CA potassium 3.9 mmol/ L 3.5-5. 1 Not Available Physicians [address], [address], 04/29/2021 13:37:57 04/29/2004/29/2021 [facility] [place] chloride 115 mmol/ L 98-107 high Not Available [address], [address], 04/29/2021 13:37:57 04/29/20 21 04/29/2021 [facility] [place] carbon dioxide 21 mmol/ L 21-32 Not Available Physicians [address], [address], 04/29/2021 13:37:57 04/29/20 21 04/29/2021 [facility] [place] BUN 31 mg/dL 7-18 high Not Available Physicians [address], [address], 04/29/2021 13:37:57 04/29/20 21 04/29/2021 [facility] [place] creatinine 1.10 mg/dL 0.60-1 .30 Not Available Physicians [address], [address], 04/29/2021 13:37:57 04/29/20 21 04/29/2021 [facility] CA glucose 100 mg/dL 74-106 Not Available Physicians [address], [address], 04/29/2021 13:37:57 04/29/2004/29/2021 [facility] CA calcium 9.2 mg/dL 8.5-10 .1 Not Available Physicians [address], [address], 04/29/2021 13:37:57 04/29/20 21 04/29/2021 [facility] CA eGFR non 64 mL/mi n/1.7 3_m2 The estim ated GFR (Glom erula r Filtr ation Rate) is based on the CKD-E PI (Handy Man yovani Kidne y Disea se Epide miolo [...] rular filtr ation rate. Not Available Physicians [address], [address], 04/29/2021 13:37:57 04/29/20 21 04/29/2021 BMPWT CA eGFR 75 mL/mi n/1.7 3_m2 The estim ated GFR (Glom erula r Filtr ation Rate) is based on the CKD-E PI (Handy Man yovani Kidne y Disea se Epide miolo [...] rular filtr ation rate. Not Available [facility] [address] [place] [address], [address], 04/29/2021 13:37:57 04/29/20 21 04/29/2021 BMPWT CA anion gap 9 Not Available Physicia ns [address], [address], 04/29/2021 13:37:57 04/29/20 21 04/29/2021 [facility] [place] BUN/crea ratio 28 ratio Not Available Physic ians [facility] [address], [place], [address], 04/29/2021 13:37:57 08/01/19 20 08/01/2019 suzi sandoval [email or web address] am No observ ation record ed. vluu In-Office Order Internal Use Only DO Not Attach Compendium DO Not Attach Compendium, Do Not Delete/merge, [id number] 04/24/2021 12:05:02 09/30/19 21 09/26/2020 trans -thor acic echoc ardio gram (TTE) (PROC ) No observ ation record ed. vluu Not Available 2020 12:05:02 03/27/20 21 03/20/2021 US, echoc ardio gram, trans thora cic, compl ete, w/ color flow No observ ation record ed. vluu Not Available 2020 12:05:02 05/05/20 21 05/05/2021 cta abdom en pelvi s [facility] Pat[facility]: SHERMAN Y JR, JOSÉ W [id number] Sex: Male Locati on: [facility] RAD Orderi Physic tino: DANICA GARCIA MD Comput ed [...] images were create d by the techno merlynt . Radiat ion optimi zation : All [...] Maximiliano Schultz MD On 2020 09:47: 14; -[facility] [id number] Final Signed by: MAXIMILIANO SCHULTZ MD Signed (Elect ronsusi Signat ure): 2020 09:47 am EST [facility] [address] [place], [address], 05/05/2021 10:33:25 05/08/20 21 05/04/2021 US, echoc ardio gram, trans thora cic, compl ete, w/ color flow No observ ation record ed. [facility] - Radiology Scheduling [address] [place], [address], 07/01/2021 17:07:54 05/20/20 22 05/06/2022 US, echoc ardio gram, trans thora cic, compl ete, w/ color flow No observ ation record ed. [email or web address] [facility] [address] [facility] [address], [place], [address], 05/21/2022 13:06:55 Result Notes None recorded. Problems Name Problem SNOMED Code Status Onset Date Resolution Date Notes Provider Name and Address Organization Details Recorded Time Rupture of gastrocn emius tendon 120339822 Active Darryl Crockett LPN null, [place] [facility]14 [place] 9 15:04:54 Ruptured Achilles tendon - traumati c 374935947 Active Darryl Crockett LPN null, [place] [facility]14 [place] 15:04:54 Lacerati on of lower limb 111763159 Active Darryl Crockett LPN null, [place] [facility]14 [place] 15:04:54 Open wound of lower leg 451025932 Active Darryl Crockett LPN null, [place] [facility] [place] 15:04:54 Hematoma 879662408 Active Darryl Crockett LPN null, [place] [facility]14 [place] 15:04:54 Follow-u p visit Completed 09/21/2018 ABDIRASHID CHRISTIE MD [address], [place], [address], [facility] - [address] 15:50:13 Ulcer of heel 327695809 Active Darryl Crockett LPN null, [place] [facility]14 [place] 15:04:54 Osteoart hritis of knee 875797288 Active Darryl Crockett LPN null, [place] - [address] 15:04:54 Swelling of lower leg 710437349 Completed 09/21/2018 ABDIRASHID CHRISTIE MD [address] ,[address] [place] [address], [address], [address] 15:50:25 Impairme nt of balance 957569557 Completed 09/21/2018 ABDIRASHID CHRISTIE MD [address] ,[address] [place] [address], [address], [address] 15:50:21 Ankle pain 411490057 Completed 09/21/2018 ABDIRASHID CHRISTIE MD [address], [place], [address], [facility] - [address] 9 15:50:33 Tendinit is 03597331 Active Darryl Crockett LPN null, [place] [facility]14 [place] 15:04:54 Edema of lower extremit y 776425171 Active Darryl Crockett LPN null, [place] [facility]14 [place] 15:04:54 Arthriti s 8694214 Active VIOLETA WEST MD [address] [place], [address], [address] 7 21:57:07 Coronary arterios clerosis 54482715 Active 2018 S/P CABG 3 vessel, LAD, OM and PDA in 08/2018 ABDIRASHID CHRISTIE MD [address] ,[address] [place] [address], [address], [address] 9 15:49:30 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 369033526 Active 2018 EF 38% by dave ogram in 08/2018 ABDIRASHID CHRISTIE MD [address] ,[address] [place] [address], [address], [address] 9 15:50:06 Essentia l hyperten vicky 17992214 Active 2018 ABDIRASHID CHRISTIE MD [address] ,[address] [place] [address], [address], [address] 9 15:53:46 Hyperlip idemia 89684684 Active 2018 ABDIRASHID CHRISTIE MD [address] ,[address] [facility], [place], [address], [address] 9 15:53:53 Overweig ht 350194434 Active 2018 ABDIRASHID CHRISTIE MD [address] ,[address] [place] [address], [address], [address] 9 15:54:04 Congesti ve heart failure 16358229 Active 2018 ABDIRASHID CHRISTIE MD [address] ,[address] [place] [address], [address], [address] 9 15:54:13 Problem Notes None recorded. Procedures Surgical History Date Name Laterality Status Provider Name and Address Organization Details Recorded Time 022 echocardiogram completed ABDIRASHID CHRISTIE MD [address] [place] [address], [address], [address] 05/21/2022 13:05:22 021 echocardiogram completed ABDIRASHID CHRISTIE MD [address], [place], [address], [address] 05/21/2022 13:04:10 021 Other completed America Bashir LPN [address] 07/01/2021 16:51:09 021 echocardiogram completed ABDIRASHID CHRISTIE MD [address], [place], [address], [address] 09/30/2020 12:17:32 020 Electrocardiogram complete completed America Bashir [address] 08/01/2019 11:43:31 019 Electrocardiogram complete completed America Bashir [address] 04/18/2019 12:24:07 019 Electrocardiogram complete completed ABDIRASHID CHRISTIE MD [address], [place], [place], [address] [place] [address] 10/18/2018 10:07:44 019 Other completed ABDIRASHID CHRISTIE MD [address], [place], [address], [address] 10/20/2018 14:41:49 019 cardiac catheterization completed ABDIRASHID CHRISTIE MD [address], [place], [address], [address] 03/20/2021 16:42:35 019 echocardiogram completed ABDIRASHID CHRITSIE MD [address], [place], [address], [address] 09/21/2018 15:52:59 019 Cabg vein three completed ABDIRASHID CHRISTIE MD [address], [place], [address], [address] 09/21/2018 15:52:19 016 Corticosteroid Injection completed VIOLETA WEST MD [address] [place] [address], [address], [address] 11/25/2015 13:19:45 016 Corticosteroid Injection completed Briana Jones [address] 10/21/2015 12:51:53 016 Cortisone Injection (Knee) 80 MG completed VIOLETA WEST MD [address] [place] [address], [address], [address] 07/02/2015 10:49:10 015 Synvisc/Gel-One Injection completed VIOLETA WEST MD [address] [place] [address], [address], [address] 05/20/2015 23:39:34 015 Synvisc/Gel-One Injection completed VIOLETA WEST MD [address] [place] [address], [address], [address] 05/06/2015 10:33:08 015 Synvisc/Gel-One Injection completed VIOLETA WEST MD [address] [place] [address], [address], [address] 04/29/2015 14:33:01 015 Cortisone Injection (Knee) completed Abiola Osullivan [address] 04/08/2015 10:33:45 015 Other completed Rashmi Villeda [address] 10/14/2014 10:21:27 Remove tonsils and adenoids completed Es Gomez [address] 08/20/2014 15:16:33 Imaging Results None recorded. [...] Available Not Available Not Available Fluzone High-Dose 2014- (PF) 180 mcg/0.5 mL intramusc ular syringe [...] Updated DateTime 2 175.26 cm 35.6 kg/m2 188447. 76 g 15 /min 69 /min 96 % 96 % 128 mm[Hg] 72 mm[Hg] America Bashir LPN [facility]14 [place] 2 16:53:38 Date Recorded Body height Body mass index (BMI) Body weight Respiratory rate Oxygen saturation Oxygen saturation in Arterial blood by Pulse oximetry Heart rate Systolic blood pressure Diastolic blood pressure Provider Name and Address Organization Details Last Updated DateTime 0 175.26 cm 31.2 kg/m2 69669.9 9 g 16 /min 98 % 98 % 58 /min 122 mm[Hg] 74 mm[Hg] America Bashir LPN [facility]14 [place] 0 11:42:40 Date Recorded Body weight Heart rate Respiratory rate Oxygen saturation Oxygen saturation in Arterial blood by Pulse oximetry Body temperature Body mass index (BMI) Body height Systolic blood pressure Diastolic blood pressure Provider Name and Address Organization Details Last Updated DateTime 1 20138.3 2 g 62 /min 16 /min 95 % 95 % 97.5 [degF] 32.5 kg/m2 175.26 cm 120 mm[Hg] 80 mm[Hg] Mj Billingsley CMA [facility]14 [place] 1 09:31:11 Date Recorded Body height Body mass index (BMI) Body weight Heart rate Respiratory rate Oxygen saturation Oxygen saturation in Arterial blood by Pulse oximetry Body temperature Systolic blood pressure Diastolic blood pressure Provider Name and Address Organization Details Last Updated DateTime 1 175.26 cm 32.5 kg/m2 89175.3 2 g 61 /min 16 /min 97 % 97 % 97.1 [degF] 130 mm[Hg] 62 mm[Hg] Zhane zavala RN [place] - [facility]14 [place] 1 14:28:10 Date Recorded Body height Body mass index (BMI) Body weight Heart rate Respiratory rate Oxygen saturation Oxygen saturation in Arterial blood by Pulse oximetry Systolic blood pressure Diastolic blood pressure Provider Name and Address Organization Details Last Updated DateTime 1 175.26 cm 35.4 kg/m2 672023. 17 g 70 /min 15 /min 97 % 97 % 129 mm[Hg] 67 mm[Hg] America Bashir, NANNY/HOUSEHOLD MANAGER [facility]14 [place] 12:26:57 Social History Question Answer Notes LastModified by [email or web address] Details LastModified Time Tobacco Smoking Status Former Smoker Es cardoza, [address] 08/20/2014 15:16:34 What Is Your Level Of Caffeine Consumption? Occasional [email or web address] Information not available 08/20/2014 Marital Status [email or web address] Informatio n not available 08/20/2014 What Was The Date Of Your Most Recent Tobacco Screening? 10/18/2018 Information not available 12/29/2018 How Many Children Do You Have? 0 [email or web address] Information not available 08/20/2014 At What Age Did You Start Smoking Tobacco? 39 [email or web address] Information not available 08/20/2014 How Much Tobacco Do You Smoke? 0.5 PPD [email or web address] Information not available 08/20/2014 Sex: Unknown Functional Status Question Answer Note LastModified by Organizat ion Details LastModified Time What is your level of alcohol consumption? 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 Family History Relationship Description Onset Age of this Age Resolved Age Notes LastModified by Organization Details LastModified Time Father Hypertensive disorder [email or web address] Not available 2016 21:57:07 Mother Dementia [email or web address] Not available 06/07/2016 21:57:07 Medical History Condition Response Coronary Artery Disease N Gout N Blood clot/deep vein thrombosis N Thyroid disorder N Hernia N Lung Disease N Depression N Blood Clots N No past medical history reported N Anxiety Disorder N Hiatal hernia N Arthritis N Leg or Foot Ulcers N Liver Disease N Rheumatoid Arthritis N Dialysis N Kidney Disease N Heart Problems N Migraines N Thyroid Problems N GI Problems N Anemia N Heart Attack (SD) N Ulcers N Diabetes N Bleeding Disorder N Seizures/Epilepsy N Headaches or Migraines N Tuberculosis N AIDS/HIV N Immunizations N Urinary Tract Infection N Asthma N Peripheral Vascular Disease N GERD/Reflux N Hepatitis N Heart Disease N Pulmonary Embolism N Hypertension N Osteoporosis N Past Encounters Encounter ID Performer Location Encounter Start Date Encounter Closed Date Diagnosis/Indication Diagnosis SNOMED-CT Code Diagnosis ICD10 Code Diagnosis Note [id number] VIOLETA WEST MD [address] [address] 08/20/2014 14:38:32 08/20/2014 15:38:45 Rupture of gastrocnemius tendon 978648933 Ruptured A chilles tendon - traumatic 459788354 Laceration of lower limb 247148219 [id number] VIOLETA WEST MD [address] [facility] [address] [address] 09/17/2014 10:56:12 09/17/2014 11:42:44 Laceration of lower limb 086726053 Ruptured A chilles tendon - traumatic 139015056 Open wound of lower leg 461012082 verbal consent obtained and wound debrided. no complicati ons noted. xeroform drsg applied. recommend daily xeroform drsg changes. wbat with boot and wedges. f/u 2 weeks. no xrays. [id number] MD DAMON STODDARD[facility] [facility] [address] [address] 10/01/2014 12:56:48 10/01/2014 13:29:57 Ruptured Achilles tendon - traumatic 444652991 wbat with boot. non viable tissue removed with forceps. xeroform dressing applied. f/u 2 weeks. Hematoma 352287408 verba l consent obtained. hematoma debrided with 15 blade scalpel. stable base obtained. xeroform dressing applied. boot applied. wound rn instructio ns given for donut dressing. october d/c boot when not wb. f/u 2 weeks. Ulcer of heel 078732098 wound debrided and dressed. elevate and donut pressure relief dressing rx'd. f/u 2 weeks. [id number] VIOLETA WEST MD [address] [place] [address] 10/14/2014 09:38:55 10/14/2014 10:31:36 Rupture of gastrocnemius tendon 727060734 continue wbat with boot. removed one wedge. f/u north to remove one juanjo every 2 weeks. d/c boot in 6-8 weeks. start PT when appropriat e. Ulcer of heel 679614926 wound debrided and dressed. elevate and donut pressure relief dressing rx'd. f/u 2 weeks. [id number] MD DAMON STODDARD[address] [facility] [place] [address] 03/11/2015 08:53:59 03/11/2015 09:18:07 Rupture of gastrocnemius tendon 075347453 M66.369 Recommende d physical therapy for Achilles tendon due to residual pain. Patient doesn't have a car available for him to use. Discussed expected maximum of 75% in strength compared to right calf. Will order an MRI if pain persists. Ulcer of heel 953664090 L97.409 monitor changes. [id number] MD DAMON STODDARD[address] [facility] [address] [facility] [address] [place] [address] 04/08/2015 09:15:32 04/08/2015 09:47:05 Rupture of gastrocnemius tendon 757364490 M66.362 Continue physical therapy for gastroc tendon due to improvemen t. Patient doesn't have a car available for him to use. Discussed expected maximum of 75% in strength compared to right calf. Will order an MRI if pain persists. monitor changes. Ulcer of heel 218572590 L97.409 monitor changes. Osteoarthr itis of knee 975806360 M17.0 Discussed non-surgic al and surgical options. Discussed bilateral knee cortisone injections to alleviate current pain. Recommende d bilateral Synvisc injections due to arthritic changes. Discussed that patient's typically notice a decrease in pain after the 1st injection more so than the 2nd. Discussed that a cortisone injection is sometimes necessary after Synvisc to help with residual swelling. [id number] MD DAMON STODDARD[address] [facility] [address] 04/29/2015 09:33:30 04/29/2015 10:00:29 Osteoarthritis of knee 497878249 M17.0 Discussed Synvisc injections due to arthritic changes to alleviate pain. Rupture of gastrocnemius tendon 413200524 M66.362 continue activity as tolerated. pt is undergoing home exercise program. [id number] MD DAMON STODDARD[address] [facility] [place] [address] 05/06/2015 09:30:21 05/06/2015 11:36:30 Osteoarthritis of knee 868190272 M17.0 Patient received his 2nd round of Synvisc injections in bilateral knees in the office today. RTC 1 week for 3rd injection Rupture of gastrocnemius tendon 565338279 M66.362 continue activity as tolerated. pt is undergoing home exercise program. [id number] MD DAMON STODDARD[address] [facility] [address] [place] [address] 05/13/2015 09:38:28 05/13/2015 10:08:38 Osteoarthritis of knee 437615575 M17.0 Bilateral knees - 3rd round of [...] does not resolve. Rupture of gastrocnemius tendon 488703294 M66.362 continue activity as tolerated. [id number] VIOLETA WEST MD [address] [place] [address] 07/02/2015 08:37:47 07/02/2015 09:28:38 Osteoarthritis of knee 268500092 M17.0 Patient completed his Synvisc injections on 05/13/15. Explained that a cortisone injection is sometimes necessary after Synvisc to help with residual swelling. Recommende d a cortisone injection in his right knee today since the pain has worsened. Right knee injection given. Patient will RTC for a left knee cortisone injection at his convenien e. Rupture of gastrocnemius tendon 660529649 M66.362 Continue physical therapy as long as the patient reports improvemen t in his gait and pain. continue gentle stretches to improve pliability . Swelling of lower leg 44 0421825 R22.42 continue PT and lymphedema massage. Impairment of balance 38 2709211 R26.89 continue PT. if not improving then will consider neurology consult. [id number] MD DAMON STODDARDTIN [facility] [address] [address] 10/21/2015 11:32:35 10/21/2015 12:30:38 Ankle pain 830141140 M25.572 No acute osseous abnormalit y noted in xrays. Due to severe worsening, I offered the patient a cortisone inj at this time. He agreed and tolerated the procedure well. f/u prn. Edema of l ower extremity 669173300 R60.0 Inflammati on should improve with inj. f/u prn. Tendinitis 09872811 M77. 9 Discussed US results with the patient. Cortisone inj given. f/u prn. Rupture of gastrocnemius tendon 828280749 M66.362 pt is s/p gastrocnem ius tendon repair on 08/26/14. Osteoarthr itis of knee 224642375 M17.0 Previous cortisone inj did not provide any relief. Pt would like to proceed with b/l TKA when he returns to [place] in the fall. Discussed the r/b/a of TKA as well as the post-opera tive and recovery period. Explained to the patient that b/l TKA has increased risks and complicati ons, and advised pt to start with more painful knee before proceeding with the other at a later time. Pt understand s and will f/u in the fall. [id number] MD FABIANA STODDARD [facility] [address] [address] 10/28/2015 09:42:28 10/28/2015 10:05:37 Ankle pain 404107288 M25.572 Pain has improved but still persists 1 week following cortisone inj. Begin physical therapy 3x/week x6 weeks. Will also order for an MRI if symptoms do not improve with physical therapy prior to next visit. Edema of l ower extremity 474386900 R60.0 Inflammati on has improved but still persists 1 week following cortisone inj. Begin physical therapy 3x/week x6 weeks. Will also order for an MRI if symptoms do not improve with physical therapy prior to next visit. Tendinitis 41382227 M76. 62 See above Rupture of gastrocnemius tendon 357490936 M66.362 Inflammati on and pain improved but still persists 1 week following cortisone inj. and s/p gastrocnem ius tendon repair on 08/26/14. Begin physical therapy 3x/week x6 weeks. Will also order for an MRI if symptoms do not improve with physical therapy prior to next visit. See above. Osteoarthr itis of knee 282224228 M17.0 Pt would like to proceed with b/l TKA when he returns to [place] in the fall. Discussed the r/b/a of TKA as well as the post-opera tive and recovery period. Explained to the patient that b/l TKA has increased risks and complicati ons, and advised pt to start with more painful knee before proceeding with the other at a later time. Pt understand s and will f/u in the fall. [id number] VIOLETA WEST MD [facility] [address] [facility] [address] [place] [address] 11/18/2015 09:39:10 11/18/2015 10:10:00 Ankle pain 520516278 M25.572 Per patient, previous cortisone inj provided minimal relief, however pt reports improvemen t with physical therapy. Cont PT. Patient would like to go North. Explained to pt that going home is acceptable at this time. Advised pt to cont swimming and perform PT exercises at home. RICE. pain meds prn. f/u prn. Edema of l ower extremity 963825693 R60.0 Inflammati on has improved. Will monitor. f/u prn Tendinitis 69033031 M76. 62 See above Rupture of gastrocnemius tendon 784761973 M66.362 s/p gastrocnem ius tendon repair on 08/26/14. Patient reports improvemen t with physical therapy. Cont PT. f/u prn Osteoarthr itis of knee 129431336 M17.0 Pt would like to proceed with b/l TKA when he returns to [place] in the fall. Discussed the r/b/a of TKA as well as the post-opera tive and recovery period. Explained to the patient that b/l TKA has increased risks and complicati ons, and advised pt to start with more painful knee before proceeding with the other at a later time. Pt understand s and will f/u in the fall. Arthritis 7142994 M19.17 2 Reviewed MRI results with the pt. Will monitor. [id number] MD DAMON [address] [facility] [address] [place] [address] 11/25/2015 10:11:52 11/25/2015 10:49:09 Ankle pain 441874482 M25.572 Discussed MRI results. Pt reports minimal [...] f/u prn Edema of l ower extremity 657261126 R60.0 Will monitor. Tendinitis [id number] M76. 62 Due to severe worsening, I offered the pt a cortisone inj at this time. He agreed and tolerated the procedure well. US results: limited study- ATFL thickening ; mild ankle effusion; partial tear of ATFL Rupture of gastrocnemius tendon [id number] M66.362 s/p gastrocnem ius tendon repair on 08/26/14. Patient reports improvemen t with physical therapy. Cont PT. f/u prn Osteoarthr itis of knee 048466865 M17.0 Pt would like to proceed with b/l TKA when he returns to [place] in the fall. Discussed the r/b/a of TKA as well as the post-opera tive and recovery period. Explained to the patient that b/l TKA has increased risks and complicati ons, and advised pt to start with more painful knee before proceeding with the other at a later time. Pt understand s and will f/u in the fall. Arthritis 0739398 M19.17 2 Reviewed MRI results with the pt. Discussed surgical tx. f/u prn [id number] MD [address]ON [address] [place] [address] 04/13/2016 16:08:51 04/13/2016 16:41:50 Edema of lower extremity 525112656 R60.0 Will monitor. Arthritis 0478739 M19.17 2 Reviewed MRI results with the pt. Discussed surgical tx. f/u prn Osteoarthr itis of knee 467799012 M17.0 Discussed the r/b/a of Left TKA [...] replacemen t coaching/c lass with his . [id number] VIOLETA WEST MD [address] [facility] [address] [place] [address] 05/25/2016 09:16:59 05/25/2016 10:15:43 Osteoarthritis of knee 148285552 M17.0 Discussed the r/b/a of Left TKA [...] his . Edema of l ower extremity 344778668 R60.0 Will monitor. Arthritis 6130374 M19.17 2 Reviewed MRI results with the pt. Discussed surgical tx. f/u prn [id number] ABDIRASHID CHRISTIE MD [address] [place] [address] 09/21/2018 14:15:25 09/21/2018 15:52:09 Coronary arteriosclerosis 09422768 I25.10 Review diagnosis and care plan. Discuss cardiac rehab post CABG and he wants to do that in [place] as he is going back there soon. Discuss risk modificati on. FU in 6mo when he returns to [place] for the next season. Advise to see his local cardiologi st when he gets back to [place]. Generalize d ischemic myocardial dysfunction 186364265 I25.5 Stable without evidence of heart failure. Recent loss blood pressure at his physical therapy (80/50), and tolerates current medication s with acceptable blood pressure. Essential hypertension 03740103 I10 Continue to take current medication s, encourage to stay physically active as tolerate. Hyperlipidemia 98925233 E78.2 Continue medication , advise to bring a copy of the latest lab to the next OV when he has it done with his PCP for review. Overweight 604656238 E66 .3 Review weight reduction strategy, encouragem ent and support provided. Congestive heart failure 49478534 I50.9 Stable with medication s and to continue. Review risk of CHF exacerbati on. [id number] ABDIRASHID CHRISTIE MD [address] [place] [address] 10/18/2018 08:31:31 10/18/2018 10:12:23 Hyperlipidemia 24000674 E78.2 Tolerates atorvastat in and to continue. Encourage to bring a copy of the latest lab result to the next OV. Essential hypertension 68562625 I10 Continue to take current medication s, encourage to stay physically active as tolerate. Coronary arteriosclerosis 80936534 I25.10 Stable with medication s to continue metoprolol and furosemide . Discuss risk modificati on. Discuss cardiac rehab in [place] when he is back home. FU in 6mo when he returns to [place] for the next winter. ECG today shows sinus rhythm, will stop amiodarone . Generalize d ischemic myocardial dysfunction 189809875 I25.5 Stable with medication s to continue metoprolol and furosemide . Congestive heart failure 11463878 I50.9 Review risk of CHF exacerbati on. Continue furosemide . Monitor. Overweight 393701866 E66 .3 Review weight reduction strategy, encouragem ent and support provided. Edema of l ower extremity 788924705 R60.0 New findings, will send for leg US to screen for DVT. Will call with result and advice. [id number] ABDIRASHID CHRISTIE MD [address] [place] [address] 04/18/2019 11:05:27 04/18/2019 12:41:18 Congestive heart failure 75005356 I50.9 Stable without over fluid retention. Continue furosemide . Monitor. Hyperlipidemia 69276522 E78.2 He has stopped atorvastat in due to leg cramp. Restart at lower dose of 10mg qd with coq10. Essential hypertension 45287531 I10 Blood pressure is acceptable and to continue medication s, encourage to stay physically active as tolerate. Coronary arteriosclerosis 96443057 I25.10 Stable without episodes and to continue monitor. Discuss risk modificati on. FU in 6mo. Generalize d ischemic myocardial dysfunction 416521966 I25.5 Stable, continue furosemide . Repeat echocardio gram to assess LVEF, will call with result and advice. Overweight 247447351 E66 .3 Review weight reduction strategy, encouragem ent and support provided. Pain in right knee 36677 87604 36389 M25.[address] Lopez, cardiac clearance letter sent via [employer]. [id number] ABDIRASHID CHRISTIE MD [address] [facility] [address] [place] [address] 08/01/2019 11:12:20 08/01/2019 12:09:55 Coronary arteriosclerosis 16683579 I25.10 Stable with ASA and to continue medication and monitor. Preop ECG today shows sinus rhythm with PVCs and acceptable heart rate. Discuss risk modificati on. FU in 6mo. Congestive heart failure 04548166 I50.9 Stable with acceptable blood pressure and no signs of fluid retention, review risk of CHF exacerbati on. Continue furosemide prn. Monitor. Essential hypertension 93613361 I10 Blood pressure is stable and to continue medication s. Encourage to stay physically active as tolerate. Hyperlipidemia 94784459 E78.2 Tolerates low dose of atorvastat in with coq10 and to continue. Repeat lab annually. Generalize d ischemic myocardial dysfunction 599548668 I25.5 Stable, monitor. Overweight 070247973 E66 .3 Review weight reduction strategy, encouragem ent and support provided. Pain in right knee 09951 46806 08752 M25.[address] Lopez, cardiac clearance letter sent via [employer]. [id number] SOFI HEART MD [address] [place] [address] 04/03/2021 08:47:23 04/03/2021 09:48:13 Abdominal aortic aneurysm without rupture 23990437 I71.4 Status post endovascul ar repair. Overall [...] from the procedure for a baseline CTA [id number] SOFI HEART MD [address] [place] [address] 04/13/2021 14:04:32 04/13/2021 15:31:55 Abdominal aortic aneurysm without rupture 04250105 I71.4 Status post endovascul ar repair. Overall progressin g satisfacto rily. Gunlock were removed. Patient at this point is cleared to resume all of his physical activities . Within the next 2 to 4 weeks a baseline CTA of the abdomen pelvis will be obtained. Depending those findings further recommenda tions will follow [id number] ABDIRASHID CHRISTIE MD [address] [place] [address] 04/24/2021 11:26:37 04/24/2021 12:24:04 Coronary arteriosclerosis 48864714 I25.10 Stable without episodes. Discuss risk modificati on. Congestive heart failure 18338792 I50.9 Stable with medication s, review risk of CHF exacerbati on. Essential hypertension 45852513 I10 Blood pressure is stable and to continue medication s. Encourage to stay physically active as tolerate. Hyperlipidemia 24947878 E78.2 Tolerates low dose of atorvastat in with coq10 and to continue. Repeat lab annually. Generalize d ischemic myocardial dysfunction 539744704 I25.5 Will repeat echocardio gram. Continue medication s. FU in 2 m, consider AICD if EF is still low. Overweight 948231761 E66 .3 Review weight reduction strategy, encouragem ent and support provided. [id number] ABDIRASHID CHRISTIE MD [address] [place] [address] 07/01/2021 16:00:14 07/01/2021 17:40:07 Hyperlipidemia 14688770 E78.2 Stable and to continue medication s. Repeat lab annually. Essential hypertension 35798653 I10 Blood pressure is good, monitor. Encourage to stay physically active as tolerate. Coronary arteriosclerosis 83786602 I25.10 Stable as he tolerates daily physical activities . Review and encourage to report back if having sxs. Discuss risk modificati on. FU in 3m. Congestive heart failure 35675549 I50.9 Stable edema, continue monitor, review risk of CHF exacerbati on. Generalize d ischemic myocardial dysfunction 183510684 I25.5 Result of the echocardio gram reviewed, EF 38%, continue current medication s. Overweight 093324612 E66 .3 Review weight reduction strategy, encouragem ent and support provided. Health Concerns Section Related Observation LastModified by Organization Detai ls LastModified Time None Recorded Concern Status LastModified by Organization Details LastModified Time None Recorded Advance Directives Directive None Recorded Payers Insurance Date Sequence Insurance Name Policy Number Policy [place] Covered Member ID [place] Member ID Guarantor Name 09/13/2024 1 [place] José Basurto [id number] José Basurto 05/21/2023 2 [employer] (MEDICARE SUPPLEMENT) José Basurto [id number] José Basurto 05/21/2023 2 INTERFACE REVIEW REQUIRED José Basurto [id number] José Basurto 05/21/2023 2 [employer] - LOCAL [facility] (SECONDARY) José Basurto [id number] José Basurto Notes Date Note Type Note [...] baseline. Weight is stable. ABDIRASHID CHRISTIE MD [address], [place], [address], [address] 08/01/2019 12:09:45 04/03/2021 text/html Patient is a 76-year-old gentleman who approximately a week ago underwent an endovascular peripheral infrarenal abdominal aortic aneurysm. Appears to be doing well. However he did develop some erythema at the site of the groin incisions. No fevers no chills. Slight clear drainage. No foul order. No purulence. Some difficulty ambulating due to overall debility. SOFI HEART MD [address] [place] [address], [address], [address] 04/03/2021 10:09:26 04/13/2021 text/html Patient is [...] does complain of constipation. SOFI HEART MD [address] [place] [address], [address], [address] 04/13/2021 17:05:53 04/24/2021 text/html Mr Basurto comes in for follow up of CAD s/p CABG 3 vessel in 08/2018, ischemic cardiomyopathy, CHF, HTN, HLD and overweight. Shortness of breath and limited walking, weight is stable, edema is stable. No palpitations. ABDIRASHID CHRISTIE MD [address], [place], [address], [address] 04/24/2021 12:27:46 07/01/2021 text/html Mr Basurto [...] is taking at home. ABDIRASHID CHRISTIE MD [address] [facility], [place], [address], [facility] [place] 07/01/2021 17:19:37
[2024-11-27 11:13] LABS: Basophils # 0.1 K/mm3 (0-0.2); Basophils % 1.2 % (0.1-2.0); Eosinophils # 0.4 Kmm3 (0.0-0.4); Eosinophils % 3.5 % (0.1-12.0); Hematocrit 39.7 % (42.0-52.0); Hemoglobin 12.6 g/dL (14.1-18.0); Immature Granulocytes # 0.43 10^3uL; Immature Granulocytes % 3.6 %; Lymphocytes # 1.2 K/mm3 (0.7-4.5); Lymphocytes % 10.1 % (10-50); Mean Corpuscular HGB Conc 31.7 g/dL (31.8-35.4); Monocytes # 0.7 K/mm3 (0.1-1.0); Monocytes % 5.7 % (1.7-9.3); Neutrophils % 75.9 % (37.0-80.0); Nucleated Red Blood Cells # 0 10^3/uL; Nucleated Red Blood Cells % 0 %; Platelet Count 211 K/mm3 (142-424); Red Blood Count 4.67 M/mm3 (4.60-6.20); Red Cell Distribution Width 18.6 % (11.5-17.5); Red Cell Distribution Width-SD 57.2 fL; White Blood Count 11.9 K/mm3 (4.8-10.8)
[2024-11-27 11:41] LABS: Chloride 105 mmol/L (98-107); Sodium 144 mmol/L (136-145)
[2024-11-27 11:44] LABS: Blood Urea Nitrogen 48 mg/dl (9-20); Carbon Dioxide 28 mmol/L (22.0-30.0); Estimated Glomerular Filt Rate 58 ml/min (>60); GFR (African American) 70 ML/MIN (>60)
[2024-11-27 11:45] LABS: Calcium 8.5 mg/dl (8.4-10.2); Glucose 105 mg/dl (74-100)
== END 2024-11-27 23:59 | disposition home or self-care (01) ==
LOC: LAB 10:29
PROVIDERS: PCP Family Medicine; Visit Provider Internal Medicine
DX: I25.10 Atherosclerotic heart disease of native coronary artery without angina pectoris (principal); I10 Essential (primary) hypertension
CPT/HCPCS: 36415; 80048; 85025

== ENCOUNTER 2024-11-29 06:41 | Inpatient (IN) | payer MEDICARE, OTHER, SELFPAY ==
[2024-11-29] VITALS (19 sets, daily range): BP systolic 112–156; BP diastolic 54–83; PULSE 66–80; RESP 16–23; TEMP 36.6–37.1; O2SAT 91–96; BMI 33.0; BMI 35.1
--- NOTE | 2024-11-29 06:51 | ED_ITS ---
Discharge Plan Disposition Patient Disposition: Admitted Prescriptions Prescriptions: No Action pregabalin 200 mg capsule 200 mg PO BID Patient Comments: TAKE 1 CAPSULE BY MOUTH THREE TIMES A DAY duloxetine 60 mg capsule,delayed release(DR/EC) 60 mg PO DAILY furosemide 40 mg tablet 40 mg PO DAILY Patient Comments: TAKE 1 TABLET BY MOUTH EVERY DAY fluticasone propion-salmeterol [Wixela Inhub] 250-50 mcg/dose blister with device 1 inh INHALATION BID Patient Comments: INHALE 1 PUFF TWICE A DAY albuterol sulfate 90 mcg/actuation HFA aerosol inhaler 2 puff INHALATION Q4HP PRN (Reason: Shortness Of Breath) Patient Comments: TAKE 2 PUFFS BY MOUTH EVERY 4 TO 6 HOURS NEEDED FOR WHEEZE atorvastatin 40 mg Tablet 80 mg PO HS 30 Days Qty: 60 0RF clopidogrel 75 mg Tablet 75 mg PO DAILY 30 Days Qty: 30 0RF aspirin 81 mg Tablet,Delayed Release (Dr/Ec) 81 mg PO DAILY 30 Days Qty: 30 0RF spironolactone 25 mg Tablet 25 mg PO DAILY 30 Days Qty: 30 0RF metoprolol succinate 25 mg Tablet Extended Release 24 Hr 25 mg PO DAILY 30 Days Qty: 30 0RF apixaban 5 mg tablet 5 mg PO BID Qty: 60 0RF Referrals Follow up/Referrals: Provider,Referral, [Primary Care Provider, Medical] - See instructions Clinical Impressions Clinical Impression: Acute upper GI bleed, Melena Instructions Patient Instructions: DI for Acute Abdominal Pain Print Language Print Language: Russian Discharge ED Provider: Gary Nava General Adult HPI <Gary Nava MD - Last Filed: 11/29/24 07:05> General Chief complaint: Abdominal Pain Stated complaint: abd pain, nausea, trouble breathing Time Seen by Provider: 11/29/24 06:45 History of Present Illness HPI narrative: 79-year-old male with history of heart failure, hypertension hyperlipidemia, recent heart cath through the groin, prior AAA repair, paroxysmal A-fib presents for abdominal pain that started last night with 4 bowel movements this morning. Reports some nausea but no vomiting. Reports pain is significant. Denies any other abdominal surgery. Related Data Home Medications ?Medication ?Instructions ?Recorded ?Confirmed duloxetine 60 mg capsule,delayed 60 mg PO DAILY 11/16/24 release furosemide 40 mg tablet 40 mg PO DAILY 02/09/2211/04 pregabalin 200 mg capsule 200 mg PO BID 02/09/2211/16 albuterol sulfate 90 mcg/actuation 2 puff inhalation Q 4HP PRN 11/16/24 11/16/24 aerosol inhaler Shortness Of Breath fluticasone 250 mcg-salmeterol 50 1 inh inhalation BID 11/16/24 11/16/24 mcg/dose blistr powdr for inhalation (Wixela Inhub) Previous Rx's ?Medication ?Instructions ?Recorded apixaban 5 mg tablet 5 mg PO BID #60 tabs 5 aspirin 81 mg tablet,delayed 81 mg PO DAILY 30 days #3 0 tabs 11/19/24 release atorvastatin 40 mg tablet 80 mg (2 x 40 mg) PO HS 30 d ays 11/19/24 #60 tabs clopidogrel 75 mg tablet 75 mg PO DAILY 30 days #30 t abs 11/19/24 metoprolol succinate 25 mg 25 mg PO DAILY 30 days #30 tabs 11/19/24 tablet,extended release 24 hr spironolactone 25 mg tablet 25 mg PO DAILY 30 days #30 tabs 11/19/24 Allergies Allergy/AdvReac Type Severity Reaction Status Date / Time No Known Allergies Allergy Verified 01/14/23 10:45 [facility] <Gary Nava MD - Last Filed: 11/29/24 07:05> [facility] Disclaimer: The information contained in this section may have been updated after the patient was seen, as this information can be updated by other users. Medical History (Updated 11/29/24 @ 08:41 by Bret Belle MD) Acute on chronic heart failure with preserved ejection fraction (HFpEF) PVCs (premature ventricular contractions) Paroxysmal atrial fibrillation NSTEMI (non-ST elevated myocardial infarction) Kyphosis Osteoarthritis BPH (benign prostatic hyperplasia) Osteopenia DDD (degenerative disc disease) Peripheral neuropathy Chronic pain syndrome Anxiety Obesity HTN (hypertension) HLD (hyperlipidemia) Aneurysm History of alcohol abuse History of substance abuse Hypertension Neuropathy Surgical History (Updated 11/23/24 @ 00:00 by Gavin Silva) History of coronary artery bypass graft Hx of cervical spinal arthrodesis S/p total knee replacement, bilateral History of heart bypass surgery Family History Other Cancer Social History (Updated 11/15/24 @ 23:21 by Lauren Mccabe RN) Smoking Status: Current every day smoker tobacco type: cigarettes packs per day: 1 alcohol intake: never current occupational status: other Travel in the last 8 weeks?: None household members: spouse housing: house current occupational exposures/hazards: No caffeine: Yes Have you lived/traveled outside [place] in past 30 days?: No Contact w/someone who lives/traveled outside US past 30 days?: No Exposure to someone with infectious disease in past 14 days?: No Do you have a fever (greater than 100.4 F or 38 C)?: No Have you tested positive for COVID-19?: No Exposed to someone with COVID-19 in past 14 days?: No Do you have a sore throat?: No Do you have a cough?: No Do you have any weakness?: Yes Do you have any diarrhea?: No Are you experiencing any unusual bleeding?: No Do you have any muscle aches/pain?: No Do you have any abdominal pain?: Yes Are you experiencing loss of taste or smell?: No Other Medical History Have you received the Flu Vaccine for this season: No Have you received the Pneumonia Vaccine: No <Gary Nava MD - Last Filed: 11/29/24 07:05> ROS Obtained: Yes All systems reviewed & no additional complaints except as documented Physical Exam <Gary Nava MD - Last Filed: 11/29/24 07:05> General General appearance: alert and in no apparent distress Head Head exam: atraumatic and normocephalic Eye Eye exam: Present normal appearance, PERRL and EOMI ENT ENT exam: Present normal oropharynx and normal external ear exam Neck Neck exam: Present normal inspection and full ROM Chest Chest inspection: Present normal inspection and symmetric chest wall rise; Absent tenderness Respiratory Respiratory exam: Present normal lung sounds bilaterally; Absent respiratory distress Cardiovascular Cardiovascular exam: Present regular rate and normal rhythm Abdominal Exam Abdominal exam: Present soft, distention and tenderness (Mild, generalized); Absent guarding Extremities Exam Extremities exam: Present edema; Absent joint swelling Back Exam Back exam: Present normal inspection; Absent tenderness Neurological Exam Neurological exam: Present alert and oriented X3; Absent motor sensory deficit Psychiatric Psychiatric exam: Present normal affect and normal mood Skin Skin exam: Present warm, dry and normal color Lymphatic Lymphatic Findings: no adenopathy Medical Decision Making <Gary Nava MD - Last Filed: 11/29/24 07:05> Medical Records Medical records reviewed: Yes I reviewed the patient's medical records. Screening: Per USPSTF and CDC recommendations, given the prevalence of disease in our region, it is our hospital?s policy to screen for HIV and viral Hepatitis for all patients aged 18 and over and those with ongoing risk factors. Dionisio Inquiry Pt receiving controlled substance: No Dionisio was queried for this patient: No Vital Signs: 11/29/24 06:52 11/29/24 07:02 11/29/24 07:30 Temperature 98.1 F Temperature Source Oral Pulse Rate 67 66 Pulse Rate [Right Radial] 76 Respiratory Rate 16 18 19 Blood Pressure 134/74 135/65 Blood Pressure [Right Arm] 134/54 L Blood Pressure Mean 78 85 Blood Pressure Mean [Right Arm] 80 Blood Pressure Position [Right Arm] Sitting 02 Sat by Pulse Oximetry 96 96 91 L Oxygen Delivery Method Room Air 11/29/24 08:00 Temperature Temperature Source Pulse Rate 80 Pulse Rate [Right Radial] Respiratory Rate 23 Blood Pressure 120/63 Blood Pressure [Right Arm] Blood Pressure Mean Blood Pressure Mean [Right Arm] Blood Pressure Position [Right Arm] 02 Sat by Pulse Oximetry 92 L Oxygen Delivery Method Lab Data Lab results reviewed: Yes I reviewed the patient's lab results. Lab Results 11/29/24 06:49: WBC 14.1 H, RBC 3.91 L, Hgb 10.7 L, Hct 33.4 L, MCV 85.4, MCH 27.4, MCHC 32.0, RDW 18.8 H, Plt Count 206, MPV 11.9 H, Neut % (Auto) 67.0, Lymph % (Auto) 16.2, [facility] % (Auto) 6.3, Eos % (Auto) 3.8, Baso % (Auto) 1.3, N eut # (Auto) 9.5 H, Lymph # (Auto) 2.3, [facility] # (Auto) 0.9, Eos # (Auto) 0.5 H, Baso # (Auto) 0.2, Total Counted 100, Neutrophils % (Manual) 72, Lymphocytes % (Manual) 24, Monocytes % (Manual) 3, Eosinophils % (Manual) 1, Platelet Estimate Normal, Hypochromasia 1+, Sodium 145, Potassium 4.4, Chloride 106, Carbon Dioxide 28, Anion Gap 15.4 H, BUN 85 H D, Creatinine 1.20, Estimated Creat Clear 72, Estimated GFR 58 L, Est GFR ( Amer) 70, Glucose 98, Calcium 8.6, Total Bilirubin 0.2, AST 34, ALT 18, Alkaline Phosphatase 113, Total Protein 6.5, Albumin 3.6, Globulin 2.9, Albumin/Globulin Ratio 1.2, Lipase 79 11/29/24 07:42: Lactate 1.7 11/29/24 06:49 11/29/24 06:49 Orders (Tests/Meds): ED MEDICATIONS Discontinued Medications Generic Name Dose Route Start Last Admin Trade Name Freq PRN Reason Stop Dose Admin Acetaminophen 1,000 mg 11/29/24 06:51 11/29/24 06:58 Acetaminophen 500mg Tab PO 11/29/24 06:52 1,000 mg ONCE ONE Administration Belladonna Alkaloids 60 ml 11/29/24 06:51 11/29/24 06:58 Belladonna Alkaloids 60 Ml Ml PO 11/29/24 06:52 60 ml ONCE ONE Administration Lactated Ringer's 1,000 mls @ 999 mls/hr 11/29/24 07:38 11/29/24 07:45 Lactated Ringer's 1000 Ml Bag IV 11/29/24 08:38 999 mls/hr .Q1H1M ONE Administration Iopamidol 80 ml 11/29/24 07:18 11/29/24 07:18 Iopamidol-370 (76%);100ml Bottle IV 11/29/24 07:19 80 ml ONCE ONE Administration Ondansetron HCl 4 mg 11/29/24 06:51 11/29/24 06:58 Ondansetron 4mg/2ml Vial IV 11/29/24 06:52 4 mg ONCE ONE Administration Sodium Chloride 50 ml 11/29/24 07:18 11/29/24 07:18 0.9 % Sodium Chloride 50 Ml Vial IV 11/29/24 07:19 50 ml ONCE ONE Administration Sodium Chloride 10 ml 11/29/24 07:18 11/29/24 07:18 Sodium Chloride 0.9% 10ml Syr (Rad Only) IV 11/29/24 07:19 10 ml ONCE ONE Administration ORDERS Category Date Time Status CT angio abdomen pelvis Stat Cat Scan 11/29/24 06:51 Completed GI consult [Consult to Gastroenterology] [CONS] Routine Cons 11/29/24 08:11 Active General Surgery Consult [Consult to General Surgery] [ Cons 11/29/24 08:38 Ordered CONS] Stat CBC w/Auto Diff [Complete Blood Count Auto Diff] Stat Lab 11/29/24 06:49 Completed CMP [Comprehensive Metabolic Panel] Stat Lab 11/29/24 06:49 Completed Lactic Acid Stat Lab 11/29/24 07:42 Completed Lipase Stat Lab 11/29/24 06:49 Completed Occult Blood,Stool Stat Lab 11/29/24 08:07 Ordered EKG Request [ECG Request] Stat Y 11/29/24 06:53 Ordered ECG Data Tracing #1: I reviewed this ECG and interpreted as documented below: Atrial fibrillation with ventricular rate of 73, frequent PVCs. ECG initial impression date: 11/29/24 ECG initial impression time: 06:52 Medical Decision Narrative: 79-year-old male with history of coronary artery disease, AAA status postrepair, heart failure presents for abdominal pain starting last night with multiple bowel movements this morning, nausea but no vomiting. History was obtained via interactive discussion with patient, family, chart review. On arrival, patient is [afebrile, hemodynamically stable, satting appropriately, alert, oriented x4, GCS 15], moving all extremities spontaneously. Full physical exam performed and significant for abdominal distention with mild generalized tenderness. Differential includes but is not limited to gastroenteritis, colitis, mesenteric ischemia, pancreatitis,. Patient was given Zofran, Tylenol, GI cocktail for symptomatic management and correction of underlying abnormalities. Workup initiated including CBC CMP lipase CT angio abdomen pelvis. At this time care handoff to oncoming physician. <Bret Belle MD - Last Filed: 11/29/24 08:41> Vital Signs: 11/29/24 06:52 11/29/24 07:02 11/29/24 07:30 Temperature 98.1 F Temperature Source Oral Pulse Rate 67 66 Pulse Rate [Right Radial] 76 Respiratory Rate 16 18 19 Blood Pressure 134/74 135/65 Blood Pressure [Right Arm] 134/54 L Blood Pressure Mean 78 85 Blood Pressure Mean [Right Arm] 80 Blood Pressure Position [Right Arm] Sitting 02 Sat by Pulse Oximetry 96 96 91 L Oxygen Delivery Method Room Air 11/29/24 08:00 Temperature Temperature Source Pulse Rate 80 Pulse Rate [Right Radial] Respiratory Rate 23 Blood Pressure 120/63 Blood Pressure [Right Arm] Blood Pressure Mean Blood Pressure Mean [Right Arm] Blood Pressure Position [Right Arm] 02 Sat by Pulse Oximetry 92 L Oxygen Delivery Method Lab Data Lab Results 11/29/24 06:49: WBC 14.1 H, RBC 3.91 L, Hgb 10.7 L, Hct 33.4 L, MCV 85.4, MCH 27.4, MCHC 32.0, RDW 18.8 H, Plt Count 206, MPV 11.9 H, Neut % (Auto) 67.0, Lymph % (Auto) 16.2, [facility] % (Auto) 6.3, Eos % (Auto) 3.8, Baso % (Auto) 1.3, N eut # (Auto) 9.5 H, Lymph # (Auto) 2.3, [facility] [place] # (Auto) 0.9, Eos # (Auto) 0.5 H, Baso # (Auto) 0.2, Total Counted 100, Neutrophils % (Manual) 72, Lymphocytes % (Manual) 24, Monocytes % (Manual) 3, Eosinophils % (Manual) 1, Platelet Estimate Normal, Hypochromasia 1+, Sodium 145, Potassium 4.4, Chloride 106, Carbon Dioxide 28, Anion Gap 15.4 H, BUN 85 H D, Creatinine 1.20, Estimated Creat Clear 72, Estimated GFR 58 L, Est GFR ( Amer) 70, Glucose 98, Calcium 8.6, Total Bilirubin 0.2, AST 34, ALT 18, Alkaline Phosphatase 113, Total Protein 6.5, Albumin 3.6, Globulin 2.9, Albumin/Globulin Ratio 1.2, Lipase 79 11/29/24 07:42: Lactate 1.7 Orders (Tests/Meds): ED MEDICATIONS Discontinued Medications Generic Name Dose Route Start Last Admin Trade Name Freq PRN Reason Stop Dose Admin Acetaminophen 1,000 mg 11/29/24 06:51 11/29/24 06:58 Acetaminophen 500mg Tab PO 11/29/24 06:52 1,000 mg ONCE ONE Administration Belladonna Alkaloids 60 ml 11/29/24 06:51 11/29/24 06:58 Belladonna Alkaloids 60 Ml Ml PO 11/29/24 06:52 60 ml ONCE ONE Administration Lactated Ringer's 1,000 mls @ 999 mls/hr 11/29/24 07:38 11/29/24 07:45 Lactated Ringer's 1000 Ml Bag IV 11/29/24 08:38 999 mls/hr .Q1H1M ONE Administration Iopamidol 80 ml 11/29/24 07:18 11/29/24 07:18 Iopamidol-370 (76%);100ml Bottle IV 11/29/24 07:19 80 ml ONCE ONE Administration Ondansetron HCl 4 mg 11/29/24 06:51 11/29/24 06:58 Ondansetron 4mg/2ml Vial IV 11/29/24 06:52 4 mg ONCE ONE Administration Sodium Chloride 50 ml 11/29/24 07:18 11/29/24 07:18 0.9 % Sodium Chloride 50 Ml Vial IV 11/29/24 07:19 50 ml ONCE ONE Administration Sodium Chloride 10 ml 11/29/24 07:18 11/29/24 07:18 Sodium Chloride 0.9% 10ml Syr (Rad Only) IV 11/29/24 07:19 10 ml ONCE ONE Administration ORDERS Category Date Time Status CT angio abdomen pelvis Stat Cat Scan 11/29/24 06:51 Completed GI consult [Consult to Gastroenterology] [CONS] Routine Cons 11/29/24 08:11 Active General Surgery Consult [Consult to General Surgery] [ Cons 11/29/24 08:38 Ordered CONS] Stat CBC w/Auto Diff [Complete Blood Count Auto Diff] Stat Lab 11/29/24 06:49 Completed CMP [Comprehensive Metabolic Panel] Stat Lab 11/29/24 06:49 Completed Lactic Acid Stat Lab 11/29/24 07:42 Completed Lipase Stat Lab 11/29/24 06:49 Completed Occult Blood,Stool Stat Lab 11/29/24 08:07 Ordered EKG Request [ECG Request] Stat Y 11/29/24 06:53 Ordered Medical Decision Narrative: 79-year-old male with history of coronary artery disease, AAA status postrepair, heart failure presents for abdominal pain starting last night with multiple bowel movements this morning, nausea but no vomiting. History was obtained via interactive discussion with patient, family, chart review. On arrival, patient is afebrile, hemodynamically stable, satting appropriately, alert, oriented x4, GCS 15, moving all extremities spontaneously. Full physical exam performed and significant for abdominal distention with mild generalized tenderness. Differential includes but is not limited to gastroenteritis, colitis, mesenteric ischemia, pancreatitis,. Patient was given Zofran, Tylenol, GI cocktail for symptomatic management and correction of underlying abnormalities. Workup initiated including CBC CMP lipase CT angio abdomen pelvis. At this time care handoff to oncoming physician. Barbra: I assumed primary responsibility for this patient after signout from previous physician. Hemoglobin dropped from 12.6-10.7, white count 12-14 over the period of 2 days.Patient has isolated BUN elevation to 85 with normal creatinine at 1.2 with normal LFTs, normal lipase. Rectal exam performed and patient has grossly melanotic stool. Sent for fecal occult which was indeterminate for what ever reason, not specified. Because patient had grossly melanotic stool, I do not feel appropriate to perform another. I also independently interpreted patient's CT scan. No obvious evidence of acute arterial GI bleed, no evidence of mesenteric ischemia, wedge infarct, failure of aortic bypass graft, aortoenteric fistula, or other signs of ischemia. No evidence of mesenteric fat stranding, or intra-abdominal fat stranding in general. Gastroenterology was consulted. On vacation. General surgery was contacted around 8:[address] Marquez states that he will do the upper and lower endoscopies for further definitive evaluation and management. Spoke to hospitalist again, agreeable to admission. Procedures <Gary Nava MD - Last Filed: 11/29/24 07:05> Risk/Benefits of Procedure(s) Were Explained: Yes Critical Care <Gary Nava MD - Last Filed: 11/29/24 07:05> Critical Care Time Critical Care Time: No
--- NOTE | 2024-11-29 06:51 | CT_ITS ---
FINAL REPORT TECHNIQUE: Pre-and postcontrast images of the abdomen through the pelvis were performed by computed tomography. Extensive 3-D reconstruction images were performed. A CTA was performed. This study was performed with techniques to keep radiation doses as low as reasonably achievable (ALARA). Individualized dose reduction techniques using automated exposure control or adjustment of mA and/or kV according to the patient's size were employed. CLINICAL HISTORY: diarrhea, abd pain out of proportion, hx AAA COMPARISON: none FINDINGS: ABDOMEN: The lung bases are clear. Precontrast images demonstrate no evidence of nephrolithiasis. No adrenal masses are identified. The liver, spleen and pancreas are unremarkable. Gallbladder unremarkable. No bowel obstruction or bowel wall thickening. Mild diverticular disease of the left colon. PELVIS: The appendix is normal. Moderate sigmoid diverticulosis. No evidence of bowel wall thickening. The urinary bladder is unremarkable. There is no significant free fluid or adenopathy. The bony pelvis is unremarkable. CTA: There is an infrarenal abdominal aortic aneurysm measuring up to 6.0 cm on coronal imaging. Aortic stent graft is present. 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 SMA widely patent. ALOK occluded proximally, typical finding following stent graft repair. Mild left renal artery stenosis. Right renal artery widely patent. IMPRESSION: No evidence of central mesenteric arterial occlusive disease aside from normal ALOK occlusion. No evidence of bowel obstruction or bowel wall thickening. Reviewed, Interpreted and Dictated by Ioana Hall MD Transcribed by Oralia Lockett Authenticated and [facility]
--- NOTE | 2024-11-29 06:52 | ECG_ITS ---
APPROVED REPORT Exam: Resting ECG HR:73 bpm ECG Measurements Heart Rate 73 AXES QRSd 134 QRS -44 QT 412 T 97 QTc 438 Conclusion ATRIAL FIBRILLATION WITH ABERRANT CONDUCTION OR VENTRICULAR PREMATURE COMPLEXES LEFT AXIS DEVIATION [QRS AXIS < -30] INTRAVENTRICULAR CONDUCTION DELAY [130+ ms QRS DURATION] ABNORMAL ECG UNCONFIRMED REPORT Electronically signed by : NADEGE SHUKLA, 11/30/2024 04:12:01
[2024-11-29] MEDS: BELLADONNA ALKALOIDS 60 ML ML PO (06:58)
[2024-11-29] MEDS: ONDANSETRON 4MG/2ML VIAL 4 MG IV ×2 (06:58→21:22)
[2024-11-29] MEDS: ACETAMINOPHEN 500MG TAB 1000 MG PO (06:58)
[2024-11-29 07:00] LABS: Basophils # 0.2 K/mm3 (0-0.2); Basophils % 1.3 % (0.1-2.0); Eosinophils # 0.5 Kmm3 (0.0-0.4); Eosinophils % 3.8 % (0.1-12.0); Hematocrit 33.4 % (42.0-52.0); Hemoglobin 10.7 g/dL (14.1-18.0); Immature Granulocytes # 0.76 10^3uL; Immature Granulocytes % 5.4 %; Lymphocytes # 2.3 K/mm3 (0.7-4.5); Lymphocytes % 16.2 % (10-50); Mean Corpuscular Hemoglobin 27.4 pg (27.0-31.2); Mean Corpuscular Volume 85.4 fl (80-94); Mean Platelet Volume 11.9 fl (7.4-10.4); Monocytes # 0.9 K/mm3 (0.1-1.0); Monocytes % 6.3 % (1.7-9.3); Neutrophils # 9.5 K/mm3 (1.8-7.8); Nucleated Red Blood Cells # 0.04 10^3/uL; Nucleated Red Blood Cells % 0.3 %; Platelet Count 206 K/mm3 (142-424); Red Blood Count 3.91 M/mm3 (4.60-6.20); Red Cell Distribution Width 18.8 % (11.5-17.5); Red Cell Distribution Width-SD 57.2 fL; White Blood Count 14.1 K/mm3 (4.8-10.8)
[2024-11-29 07:07] LABS: MANUAL DIFFERENTIAL MANUAL DIFFERENTIAL (MANUAL DIFF)
--- OUTSIDE RECORDS SUMMARY | 2024-11-29 07:13 | XMS_ITS | Clinical Summary ---
Author Organization [facility] Address [address] [place] [id number] Care Team Providers Care Cork Insulator Name Role Phone Peyton Alan DO Primary Care Provider [phone] Allergies No known active allergies Active Problems [...] age to complete this topic Insurance MEDICARE [facility] OTHER GENERIC COMMERCIAL Care Teams Cork Insulator Relationship Specialty Start Date End Date Peyton Alan DO [address] [place], [place] [id number] PCP - General 05/13/20
--- OUTSIDE RECORDS SUMMARY | 2024-11-29 07:14 | XMS_ITS | Data Portability ---
Author Organization [facility] [place], Main Office Address [address] [facility] [address] [place] [address] Care Team Providers Care Afterschool Name Role Phone VIOLETA WEST OTHER CANDY [...] DO Not Attach Compendium, Do Not Delete/merge, [id number] 0 12:11:01 Medication Orders None recorded. Patient TargetsNo targets recorded. Patient Instructions Encounter Date Encounter Id Patient Instructions Last Modified By Organization Details Last Modified Time 08/01/2019 [id number] high blood pressure: care instructions vluu Not available 08/01/2019 12:02:26 learning about high blood pressure vluu Not available 08/01/2019 12:02:27 high cholesterol : care instructions vluu Not available 08/01/2019 12:02:26 heart failure: care instructions vluu Not available 08/01/2019 12:02:27 learning about heart failure vluu Not available 08/01/2019 12:02:27 04/24/2021 [id number] high blood pressure: care instructions vluu Not available 04/24/2021 12:12:47 learning about high blood pressure vluu Not available 04/24/2021 12:12:48 high cholesterol : care instructions vluu Not available 04/24/2021 12:12:47 heart failure: care instructions vluu Not available 04/24/2021 12:12:47 learning about heart failure vluu Not available 04/24/2021 12:12:48 07/01/2021 [id number] high blood pressure: care instructions vluu Not [...] mmol/ L 136-14 5 Not Available Physicians [address], [address], 04/29/2021 13:37:57 04/29/20 21 04/29/2021 BMP[facility] [place] potassium 3.9 mmol/ L 3.5-5. 1 Not Available Physicians [address], [address], 04/29/2021 13:37:57 04/29/2004/29/2021 [facility] [place] chloride 115 mmol/ L 98-107 high Not Available [address], [address], 04/29/2021 13:37:57 04/29/20 21 04/29/2021 [facility] [place] carbon dioxide 21 mmol/ L 21-32 Not Available Physicians [address], [address], 04/29/2021 13:37:57 04/29/20 21 04/29/2021 [facility] [place] BUN 31 mg/dL 7-18 high Not Available Physicians [address], [address], 04/29/2021 13:37:57 04/29/20 21 04/29/2021 [facility] [place] creatinine 1.10 mg/dL 0.60-1 .30 Not Available Physicians [address], [address], 04/29/2021 13:37:57 04/29/20 21 04/29/2021 [facility] [place] glucose 100 mg/dL 74-106 Not Available Physicians [address], [address], 04/29/2021 13:37:57 04/29/2004/29/2021 [facility] [place] calcium 9.2 mg/dL 8.5-10 .1 Not Available Physicians [address], [address], 04/29/2021 13:37:57 04/29/20 21 04/29/2021 [facility] CA eGFR non 64 mL/mi n/1.7 3_m2 The estim ated GFR (Glom erula r Filtr ation Rate) is based on the CKD-E PI (Communications Supervisor yovani Kidne y Disea se Epide miolo [...] rular filtr ation rate. Not Available Physicians [address], [address], 04/29/2021 13:37:57 04/29/20 21 04/29/2021 BMPWT CA eGFR 75 mL/mi n/1.7 3_m2 The estim ated GFR (Glom erula r Filtr ation Rate) is based on the CKD-E PI (Communications Supervisor yovani Kidne y Disea se Epide miolo [...] rular filtr ation rate. Not Available [facility] [address] [place] [address], [address], 04/29/2021 13:37:57 04/29/20 21 04/29/2021 BMP[facility] CA anion gap 9 Not Available Physicia ns [address], [address], 04/29/2021 13:37:57 04/29/20 21 04/29/2021 [facility] [place] BUN/crea ratio 28 ratio Not Available Physic ians [facility] [address], [place], [address], 04/29/2021 13:37:57 08/01/19 20 08/01/2019 suzi sandoval [email or web address] am No observ ation record ed. [email or web address] In-Office Order Internal Use Only DO Not Attach Compendium DO Not Attach Compendium, Do Not Delete/merge, [id number] 04/24/2021 12:05:02 09/30/19 21 09/26/2020 trans -thor acic echoc ardio gram (TTE) (PROC ) No observ ation record ed. vluu Not Available 2020 12:05:02 03/27/20 21 03/20/2021 US, echoc ardio gram, trans thora cic, compl ete, w/ color flow No observ ation record ed. vluu Not Available 2020 12:05:02 05/05/20 21 05/05/2021 cta abdom en pelvi s [facility]: SHERMAN Y JR, JOSÉ W [id number] : 943 Sex: Male Locati on: [facility] RAD Orderi Physic tino: DANICA GARCIA [...] Maximiliano Schultz MD On 2020 09:47: 14; -[facility] [id number] Final Signed by: MAXIMILIANO SCHULTZ MD Signed (Elect ronsusi Signat ure): 2020 09:47 am EST [facility] [address] [place], [address], 05/05/2021 10:33:25 05/08/20 21 05/04/2021 US, echoc ardio gram, trans thora cic, compl ete, w/ color flow No observ ation record ed. [facility] - Radiology Scheduling [address] [place], [address], 07/01/2021 17:07:54 05/20/20 22 05/06/2022 US, echoc ardio gram, trans thora cic, compl ete, w/ color flow No observ ation record ed. [email or web address] [facility] [address] [facility] [address], [place], [address], 05/21/2022 13:06:55 Result Notes None recorded. Problems Name Problem SNOMED Code Status Onset Date Resolution Date Notes Provider Name and Address Organization Details Recorded Time Rupture of gastrocn emius tendon 218946158 Active Darryl Crockett LPN null, [place] - [facility] [place] 9 15:04:54 Ruptured Achilles tendon - traumati c 722060438 Active Darryl Crockett LPN null, [place] - [facility]14 [place] 15:04:54 Lacerati on of lower limb 608295705 Active Darryl Crockett LPN null, [place] - [facility]14 [place] 15:04:54 Open wound of lower leg 967310150 Active Darryl Crockett LPN null, [place] - [facility]14 [place] 15:04:54 Hematoma 985377181 Active Darryl Crockett LPN null, [place] - [facility]14 [place] 15:04:54 Follow-u p visit Completed 09/21/2018 ABDIRASHID CHRISTIE MD [address], [place], [address], [facility] - [address] 15:50:13 Ulcer of heel 357220838 Active Darryl Crockett LPN null, [place] - [facility]14 [place] 15:04:54 Osteoart hritis of knee 537267516 Active Darryl Crockett LPN [place], [place] - [address] 15:04:54 Swelling of lower leg 559796603 Completed 09/21/2018 ABDIRASHID CHRISTIE MD [address] ,[address] [place] [address], [address], [address] 15:50:25 Impairme nt of balance 376789196 Completed 09/21/2018 ABDIRASHID CHRISTIE MD [address] ,[address] [place] [address], [address], [address] 15:50:21 Ankle pain 574827983 Completed 09/21/2018 ABDIRASHID CHRISTIE MD [address], [place], [address], [facility] - [address] 9 15:50:33 Tendinit is 89175111 Active Darryl Crockett LPN null, [place] - [facility]14 [place] 15:04:54 Edema of lower extremit y 536850997 Active Darryl Crockett LPN null, [place] - [facility]14 [place] 15:04:54 Arthriti s 2774468 Active VIOLETA WEST MD [address] [place], [address], [address] 7 21:57:07 Coronary arterios clerosis 34579881 Active 2018 S/P CABG 3 vessel, LAD, OM and PDA in 08/2018 ABDIRASHID CHRISTIE MD [address] ,[address] [place] [address], [address], [address] 9 15:49:30 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 774146907 Active 2018 EF 38% by dave ogram in 08/2018 ABDIRASHID CHRISTIE MD [address] ,[address] [place] [address], [address], [address] 9 15:50:06 Essentia l hyperten vicky 51912451 Active 2018 ABDIRASHID CHRISTIE MD [address] ,[address] [place] [address], [address], [address] 9 15:53:46 Hyperlip idemia 31211055 Active 2018 ABDIRASHID CHRISTIE MD [address] ,[address] [facility], [place], [address], [address] 9 15:53:53 Overweig ht 156928424 Active 2018 ABDIRASHID CHRISTIE MD [address] ,[address] [place] [address], [address], [address] 9 15:54:04 Congesti ve heart failure 90426877 Active 2018 ABDIRASHID CHRISTIE MD [address] ,[address] [place] [address], [address], [address] 9 15:54:13 Problem Notes None recorded. Procedures Surgical History Date Name Laterality Status Provider Name and Address Organization Details Recorded Time 022 echocardiogram completed ABDIRASHID CHRISTIE MD [address] [place] [address], [address], [address] 05/21/2022 13:05:22 021 echocardiogram completed ABDIRASHID CHRISTIE MD [address], [place], [address], [address] 05/21/2022 13:04:10 021 Other completed America Bashir LPN [address] 07/01/2021 16:51:09 021 echocardiogram completed ABDIRASHID CHRISTIE MD [address], [place], [address], [address] 09/30/2020 12:17:32 020 Electrocardiogram complete completed America Bashir [address] 08/01/2019 11:43:31 019 Electrocardiogram complete completed America Bashir [address] 04/18/2019 12:24:07 019 Electrocardiogram complete completed ABDIRASHID CHRISTIE MD [address], [place], [place], [address] [place] [address] 10/18/2018 10:07:44 019 Other completed ABDIRASHID CHRISTIE MD [address], [place], [address], [address] 10/20/2018 14:41:49 019 cardiac catheterization completed ABDIRASHID CHRISTIE MD [address], [place], [address], [address] 03/20/2021 16:42:35 019 echocardiogram completed ABDIRASHID CHRISTIE MD [address], [place], [address], [address] 09/21/2018 15:52:59 019 Cabg vein three completed ABDIRASHID CHRISTIE MD [address], [place], [address], [address] 09/21/2018 15:52:19 016 Corticosteroid Injection completed VIOLETA WEST MD [address] [place] [address], [address], [address] 11/25/2015 13:19:45 016 Corticosteroid Injection completed Briana Jones [address] 10/21/2015 12:51:53 016 Cortisone Injection (Knee) 80 MG completed VIOLETA WEST MD [address] [place] [address], [address], [address] 07/02/2015 10:49:10 015 Synvisc/Gel-One Injection completed VIOLETA WEST MD [address] [place] [address], [address], [address] 05/20/2015 23:39:34 015 Synvisc/Gel-One Injection completed VIOLETA WEST MD [address] [place] [address], [address], [address] 05/06/2015 10:33:08 015 Synvisc/Gel-One Injection completed VIOLETA WEST MD [address] [place] [address], [address], [address] 04/29/2015 14:33:01 015 Cortisone Injection (Knee) completed Abiola Osullivan [address] 04/08/2015 10:33:45 015 Other completed Rashmi Villeda [address] 10/14/2014 10:21:27 Remove tonsils and adenoids completed Es Gomez [address] 08/20/2014 15:16:33 Imaging Results None recorded. [...] Updated DateTime 2 175.26 cm 35.6 kg/m2 077129. 76 g 15 /min 69 /min 96 % 96 % 128 mm[Hg] 72 mm[Hg] America Bashir LPN [facility]14 [place] 2 16:53:38 Date Recorded Body height Body mass index (BMI) Body weight Respiratory rate Oxygen saturation Oxygen saturation in Arterial blood by Pulse oximetry Heart rate Systolic blood pressure Diastolic blood pressure Provider Name and Address Organization Details Last Updated DateTime 0 175.26 cm 31.2 kg/m2 46794.9 9 g 16 /min 98 % 98 % 58 /min 122 mm[Hg] 74 mm[Hg] America Bashir LPN [facility]14 [place] 0 11:42:40 Date Recorded Body weight Heart rate Respiratory rate Oxygen saturation Oxygen saturation in Arterial blood by Pulse oximetry Body temperature Body mass index (BMI) Body height Systolic blood pressure Diastolic blood pressure Provider Name and Address Organization Details Last Updated DateTime 1 21759.3 2 g 62 /min 16 /min 95 % 95 % 97.5 [degF] 32.5 kg/m2 175.26 cm 120 mm[Hg] 80 mm[Hg] Mj Billingsley CMA [facility]14 [place] 1 09:31:11 Date Recorded Body height Body mass index (BMI) Body weight Heart rate Respiratory rate Oxygen saturation Oxygen saturation in Arterial blood by Pulse oximetry Body temperature Systolic blood pressure Diastolic blood pressure Provider Name and Address Organization Details Last Updated DateTime 1 175.26 cm 32.5 kg/m2 66191.3 2 g 61 /min 16 /min 97 % 97 % 97.1 [degF] 130 mm[Hg] 62 mm[Hg] Zhane zavala RN [place] - [facility]14 [place] 1 14:28:10 Date Recorded Body height Body mass index (BMI) Body weight Heart rate Respiratory rate Oxygen saturation Oxygen saturation in Arterial blood by Pulse oximetry Systolic blood pressure Diastolic blood pressure Provider Name and Address Organization Details Last Updated DateTime 1 175.26 cm 35.4 kg/m2 281454. 17 g 70 /min 15 /min 97 % 97 % 129 mm[Hg] 67 mm[Hg] America Bashir, [employer] [facility]14 [place] 12:26:57 Social History Question Answer Notes LastModified by [email or web address] Details LastModified Time Tobacco Smoking Status Former Smoker Es cardoza, [address] 08/20/2014 15:16:34 What Is Your Level Of Caffeine Consumption? Occasional [email or web address] Information not available 08/20/2014 Marital Status [email or web address] Informatio n not available 08/20/2014 What Was The Date Of Your Most Recent Tobacco Screening? 10/18/2018 Information not available 12/29/2018 How Many Children Do You Have? 0 Information not available 08/20/2014 At What Age Did You Start Smoking Tobacco? 39 [email or web address] Information not available 08/20/2014 How Much Tobacco Do You Smoke? 0.5 PPD [email or web address] Information not available 08/20/2014 Sex: Unknown Functional Status Question Answer Note LastModified by Organizat ion Details LastModified Time What is your level of alcohol consumption? 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 Family History Relationship Description Onset Age of this Age Resolved Age Notes LastModified by Organization Details LastModified Time Father Hypertensive disorder [email or web address] Not available 2016 21:57:07 Mother Dementia [email or web address] Not available 06/07/2016 21:57:07 Medical History Condition Response Coronary Artery Disease N Heart Problems N Gout N Thyroid disorder N Blood clot/deep vein thrombosis N Hernia N Migraines N Thyroid Problems N Lung Disease N Depression N Blood Clots N GI Problems N Anemia N No past medical history reported N Ulcers N Heart Attack ([place]) N Anxiety Disorder N Diabetes N Bleeding Disorder N Seizures/Epilepsy N Hiatal hernia N Arthritis N Headaches or Migraines N Tuberculosis N Immunizations N AIDS/HIV N Urinary Tract Infection N Asthma N Leg or Foot Ulcers N Peripheral Vascular Disease N GERD/Reflux N Hepatitis N Liver Disease N Heart Disease N Rheumatoid Arthritis N Pulmonary Embolism N Dialysis N Hypertension N Osteoporosis N Kidney Disease N Past Encounters Encounter ID Performer Location Encounter Start Date Encounter Closed Date Diagnosis/Indication Diagnosis SNOMED-CT Code Diagnosis ICD10 Code Diagnosis Note [id number] VIOLETA WEST MD [address] [facility] [address] 08/20/2014 14:38:32 08/20/2014 15:38:45 Rupture of gastrocnemius tendon 880259000 Ruptured A chilles tendon - traumatic 858583140 Laceration of lower limb 679901172 [id number] VIOLETA WEST MD [address] [facility] [address] [address] 09/17/2014 10:56:12 09/17/2014 11:42:44 Laceration of lower limb 555595984 Ruptured A chilles tendon - traumatic 888097413 Open wound of lower leg 508069315 verbal consent obtained and wound debrided. no complicati ons noted. xeroform drsg applied. recommend daily xeroform drsg changes. wbat with boot and wedges. f/u 2 weeks. no xrays. [id number] MD DAMON STODDARD[facility] [facility] [address] [address] 10/01/2014 12:56:48 10/01/2014 13:29:57 Ruptured Achilles tendon - traumatic 151385098 wbat with boot. non viable tissue removed with forceps. xeroform dressing applied. f/u 2 weeks. Hematoma 269537695 verba l consent obtained. hematoma debrided with 15 blade scalpel. stable base obtained. xeroform dressing applied. boot applied. wound rn instructio ns given for donut dressing. october d/c boot when not wb. f/u 2 weeks. Ulcer of heel 041374351 wound debrided and dressed. elevate and donut pressure relief dressing rx'd. f/u 2 weeks. [id number] VIOLETA WEST MD [address] [place] [address] 10/14/2014 09:38:55 10/14/2014 10:31:36 Rupture of gastrocnemius tendon 796871719 continue wbat with boot. removed one wedge. f/u north to remove one juanjo every 2 weeks. d/c boot in 6-8 weeks. start PT when appropriat e. Ulcer of heel 607745853 wound debrided and dressed. elevate and donut pressure relief dressing rx'd. f/u 2 weeks. [id number] MD DAMON STOD[facility]ARD[address] [facility] [address] [place] [address] 03/11/2015 08:53:59 03/11/2015 09:18:07 Rupture of gastrocnemius tendon 296591287 M66.369 Recommende d physical therapy for Achilles tendon due to residual pain. Patient doesn't have a car available for him to use. Discussed expected maximum of 75% in strength compared to right calf. Will order an MRI if pain persists. Ulcer of heel 702971388 L97.409 monitor changes. [id number] MD DAMON STOD[facility]ARD[address] [facility] [address] [facility] [facility] [address] [place] [address] 04/08/2015 09:15:32 04/08/2015 09:47:05 Rupture of gastrocnemius tendon 174690803 M66.362 Continue physical therapy for gastroc tendon due to improvemen t. Patient doesn't have a car available for him to use. Discussed expected maximum of 75% in strength compared to right calf. Will order an MRI if pain persists. monitor changes. Ulcer of heel 431609677 L97.409 monitor changes. Osteoarthr itis of knee 319849182 M17.0 Discussed non-surgic al and surgical options. Discussed bilateral knee cortisone injections to alleviate current pain. Recommende d bilateral Synvisc injections due to arthritic changes. Discussed that patient's typically notice a decrease in pain after the 1st injection more so than the 2nd. Discussed that a cortisone injection is sometimes necessary after Synvisc to help with residual swelling. [id number] MD DAMON [address]ODDARD[address] [facility] [address] [address] 04/29/2015 09:33:30 04/29/2015 10:00:29 Osteoarthritis of knee 529224298 M17.0 Discussed Synvisc injections due to arthritic changes to alleviate pain. Rupture of gastrocnemius tendon 443985917 M66.362 continue activity as tolerated. pt is undergoing home exercise program. [id number] MD DAMON STOD[address]ARD[address] [facility] [address] [place] [address] 05/06/2015 09:30:21 05/06/2015 11:36:30 Osteoarthritis of knee 664460156 M17.0 Patient received his 2nd round of Synvisc injections in bilateral knees in the office today. RTC 1 week for 3rd injection Rupture of gastrocnemius tendon 948867504 M66.362 continue activity as tolerated. pt is undergoing home exercise program. [id number] MD DAMON STOD[address]ARD[address] [facility] [address] [place] [address] 05/13/2015 09:38:28 05/13/2015 10:08:38 Osteoarthritis of knee 163854296 M17.0 Bilateral knees - 3rd round of [...] does not resolve. Rupture of gastrocnemius tendon 657727129 M66.362 continue activity as tolerated. [id number] VIOLETA WEST MD [address] [place] [address] 07/02/2015 08:37:47 07/02/2015 09:28:38 Osteoarthritis of knee 714155836 M17.0 Patient completed his Synvisc injections on 05/13/15. Explained that a cortisone injection is sometimes necessary after Synvisc to help with residual swelling. Recommende d a cortisone injection in his right knee today since the pain has worsened. Right knee injection given. Patient will RTC for a left knee cortisone injection at his convenien e. Rupture of gastrocnemius tendon 196283357 M66.362 Continue physical therapy as long as the patient reports improvemen t in his gait and pain. continue gentle stretches to improve pliability . Swelling of lower leg 44 9247199 R22.42 continue PT and lymphedema massage. Impairment of balance 38 1942719 R26.89 continue PT. if not improving then will consider neurology consult. [id number] MD DAMON STODDARD[facility]IN [facility] [address] [address] 10/21/2015 11:32:35 10/21/2015 12:30:38 Ankle pain 631757665 M25.572 No acute osseous abnormalit y noted in xrays. Due to severe worsening, I offered the patient a cortisone inj at this time. He agreed and tolerated the procedure well. f/u prn. Edema of l ower extremity 139509710 R60.0 Inflammati on should improve with inj. f/u prn. Tendinitis 46781783 M77. 9 Discussed US results with the patient. Cortisone inj given. f/u prn. Rupture of gastrocnemius tendon 065146228 M66.362 pt is s/p gastrocnem ius tendon repair on 08/26/14. Osteoarthr itis of knee 698817021 M17.0 Previous cortisone inj did not provide any relief. Pt would like to proceed with b/l TKA when he returns to [place] in the fall. Discussed the r/b/a of TKA as well as the post-opera tive and recovery period. Explained to the patient that b/l TKA has increased risks and complicati ons, and advised pt to start with more painful knee before proceeding with the other at a later time. Pt understand s and will f/u in the fall. [id number] MD FABIANA STODDARD [facility] [address] [address] 10/28/2015 09:42:28 10/28/2015 10:05:37 Ankle pain 148882296 M25.572 Pain has improved but still persists 1 week following cortisone inj. Begin physical therapy 3x/week x6 weeks. Will also order for an MRI if symptoms do not improve with physical therapy prior to next visit. Edema of l ower extremity 295721619 R60.0 Inflammati on has improved but still persists 1 week following cortisone inj. Begin physical therapy 3x/week x6 weeks. Will also order for an MRI if symptoms do not improve with physical therapy prior to next visit. Tendinitis 89883674 M76. 62 See above Rupture of gastrocnemius tendon 917088720 M66.362 Inflammati on and pain improved but still persists 1 week following cortisone inj. and s/p gastrocnem ius tendon repair on 08/26/14. Begin physical therapy 3x/week x6 weeks. Will also order for an MRI if symptoms do not improve with physical therapy prior to next visit. See above. Osteoarthr itis of knee 259855561 M17.0 Pt would like to proceed with b/l TKA when he returns to [place] in the fall. Discussed the r/b/a of TKA as well as the post-opera tive and recovery period. Explained to the patient that b/l TKA has increased risks and complicati ons, and advised pt to start with more painful knee before proceeding with the other at a later time. Pt understand s and will f/u in the fall. [id number] VIOLETA WEST MD [facility] [address] [facility] [address] [place] [address] 11/18/2015 09:39:10 11/18/2015 10:10:00 Ankle pain 543157516 M25.572 Per patient, previous cortisone inj provided minimal relief, however pt reports improvemen t with physical therapy. Cont PT. Patient would like to go North. Explained to pt that going home is acceptable at this time. Advised pt to cont swimming and perform PT exercises at home. RICE. pain meds prn. f/u prn. Edema of l ower extremity 830338480 R60.0 Inflammati on has improved. Will monitor. f/u prn Tendinitis 20934478 M76. 62 See above Rupture of gastrocnemius tendon 062312412 M66.362 s/p gastrocnem ius tendon repair on 08/26/14. Patient reports improvemen t with physical therapy. Cont PT. f/u prn Osteoarthr itis of knee 856646354 M17.0 Pt would like to proceed with b/l TKA when he returns to [place] in the fall. Discussed the r/b/a of TKA as well as the post-opera tive and recovery period. Explained to the patient that b/l TKA has increased risks and complicati ons, and advised pt to start with more painful knee before proceeding with the other at a later time. Pt understand s and will f/u in the fall. Arthritis 1946783 M19.17 2 Reviewed MRI results with the pt. Will monitor. [id number] MD DAMON [address]ARD[address] [facility] [address] [facility] [address] [place] [address] 11/25/2015 10:11:52 11/25/2015 10:49:09 Ankle pain 390111639 M25.572 Discussed MRI results. Pt reports minimal [...] f/u prn Edema of l ower extremity [id number] R60.0 Will monitor. Tendinitis 56838744 M76. 62 Due to severe worsening, I offered the pt a cortisone inj at this time. He agreed and tolerated the procedure well. US results: limited study- ATFL thickening ; mild ankle effusion; partial tear of ATFL Rupture of gastrocnemius tendon [id number] M66.362 s/p gastrocnem ius tendon repair on 08/26/14. Patient reports improvemen t with physical therapy. Cont PT. f/u prn Osteoarthr itis of knee [id number] M17.0 Pt would like to proceed with b/l TKA when he returns to [place] in the fall. Discussed the r/b/a of TKA as well as the post-opera tive and recovery period. Explained to the patient that b/l TKA has increased risks and complicati ons, and advised pt to start with more painful knee before proceeding with the other at a later time. Pt understand s and will f/u in the fall. Arthritis 5850428 M19.17 2 Reviewed MRI results with the pt. Discussed surgical tx. f/u prn [id number] MD [address]ON [address] [place] [address] 04/13/2016 16:08:51 04/13/2016 16:41:50 Edema of lower extremity 260560132 R60.0 Will monitor. Arthritis 9701541 M19.17 2 Reviewed MRI results with the pt. Discussed surgical tx. f/u prn Osteoarthr itis of knee 215567444 M17.0 Discussed the r/b/a of Left TKA [...] replacemen t coaching/c lass with his . [id number] VIOLETA WEST MD [address] [facility] [address] [place] [address] 05/25/2016 09:16:59 05/25/2016 10:15:43 Osteoarthritis of knee 109913474 M17.0 Discussed the r/b/a of Left TKA [...] his . Edema of l ower extremity 781127556 R60.0 Will monitor. Arthritis 3878089 M19.17 2 Reviewed MRI results with the pt. Discussed surgical tx. f/u prn [id number] ABDIRASHID CHRISTIE MD [address] [place] [address] 09/21/2018 14:15:25 09/21/2018 15:52:09 Coronary arteriosclerosis 73154133 I25.10 Review diagnosis and care plan. Discuss cardiac rehab post CABG and he wants to do that in [place] as he is going back there soon. Discuss risk modificati on. FU in 6mo when he returns to [place] for the next season. Advise to see his local cardiologi st when he gets back to [place]. Generalize d ischemic myocardial dysfunction 101260069 I25.5 Stable without evidence of heart failure. Recent loss blood pressure at his physical therapy (80/50), and tolerates current medication s with acceptable blood pressure. Essential hypertension 39624839 I10 Continue to take current medication s, encourage to stay physically active as tolerate. Hyperlipidemia 63451748 E78.2 Continue medication , advise to bring a copy of the latest lab to the next OV when he has it done with his PCP for review. Overweight 214109511 E66 .3 Review weight reduction strategy, encouragem ent and support provided. Congestive heart failure 31303620 I50.9 Stable with medication s and to continue. Review risk of CHF exacerbati on. [id number] ABDIRASHID CHRISTIE MD [address] [place] [address] 10/18/2018 08:31:31 10/18/2018 10:12:23 Hyperlipidemia 09667880 E78.2 Tolerates atorvastat in and to continue. Encourage to bring a copy of the latest lab result to the next OV. Essential hypertension 34012678 I10 Continue to take current medication s, encourage to stay physically active as tolerate. Coronary arteriosclerosis 21454392 I25.10 Stable with medication s to continue metoprolol and furosemide . Discuss risk modificati on. Discuss cardiac rehab in [place] when he is back home. FU in 6mo when he returns to [place] for the next winter. ECG today shows sinus rhythm, will stop amiodarone . Generalize d ischemic myocardial dysfunction 742021882 I25.5 Stable with medication s to continue metoprolol and furosemide . Congestive heart failure 63700638 I50.9 Review risk of CHF exacerbati on. Continue furosemide . Monitor. Overweight 916652181 E66 .3 Review weight reduction strategy, encouragem ent and support provided. Edema of l ower extremity 398322559 R60.0 New findings, will send for leg US to screen for DVT. Will call with result and advice. [id number] ABDIRASHID CHRISTIE MD [address] [place] [address] 04/18/2019 11:05:27 04/18/2019 12:41:18 Congestive heart failure 10150081 I50.9 Stable without over fluid retention. Continue furosemide . Monitor. Hyperlipidemia 51535653 E78.2 He has stopped atorvastat in due to leg cramp. Restart at lower dose of 10mg qd with coq10. Essential hypertension 62057848 I10 Blood pressure is acceptable and to continue medication s, encourage to stay physically active as tolerate. Coronary arteriosclerosis 41783680 I25.10 Stable without episodes and to continue monitor. Discuss risk modificati on. FU in 6mo. Generalize d ischemic myocardial dysfunction 155691761 I25.5 Stable, continue furosemide . Repeat echocardio gram to assess LVEF, will call with result and advice. Overweight 110368457 E66 .3 Review weight reduction strategy, encouragem ent and support provided. Pain in right knee 37723 28451 71786 M25.[address] Lopez, cardiac clearance letter sent via [employer]. [id number] ABDIRASHID CHRISTIE MD [address] [facility] [address] [place] [address] 08/01/2019 11:12:20 08/01/2019 12:09:55 Coronary arteriosclerosis 26726607 I25.10 Stable with ASA and to continue medication and monitor. Preop ECG today shows sinus rhythm with PVCs and acceptable heart rate. Discuss risk modificati on. FU in 6mo. Congestive heart failure 45741736 I50.9 Stable with acceptable blood pressure and no signs of fluid retention, review risk of CHF exacerbati on. Continue furosemide prn. Monitor. Essential hypertension 44904874 I10 Blood pressure is stable and to continue medication s. Encourage to stay physically active as tolerate. Hyperlipidemia 89379097 E78.2 Tolerates low dose of atorvastat in with coq10 and to continue. Repeat lab annually. Generalize d ischemic myocardial dysfunction 511836187 I25.5 Stable, monitor. Overweight 419962989 E66 .3 Review weight reduction strategy, encouragem ent and support provided. Pain in right knee 16297 80448 36928 M25.[address] Lopez, cardiac clearance letter sent via [employer]. [id number] SOFI HEART MD [address] [facility] [address] [place] [address] 04/03/2021 08:47:23 04/03/2021 09:48:13 Abdominal aortic aneurysm without rupture 12029238 I71.4 Status post endovascul ar repair. Overall [...] from the procedure for a baseline CTA [id number] SOFI HEART MD [address] [place] [address] 04/13/2021 14:04:32 04/13/2021 15:31:55 Abdominal aortic aneurysm without rupture 88840875 I71.4 Status post endovascul ar repair. Overall progressin g satisfacto rily. [place] were removed. Patient at this point is cleared to resume all of his physical activities . Within the next 2 to 4 weeks a baseline CTA of the abdomen pelvis will be obtained. Depending those findings further recommenda tions will follow [id number] ABDIRASHID CHRISTIE MD [address] [place] [address] 04/24/2021 11:26:37 04/24/2021 12:24:04 Coronary arteriosclerosis 10649505 I25.10 Stable without episodes. Discuss risk modificati on. Congestive heart failure 78906537 I50.9 Stable with medication s, review risk of CHF exacerbati on. Essential hypertension 12550997 I10 Blood pressure is stable and to continue medication s. Encourage to stay physically active as tolerate. Hyperlipidemia 58946233 E78.2 Tolerates low dose of atorvastat in with coq10 and to continue. Repeat lab annually. Generalize d ischemic myocardial dysfunction 746606797 I25.5 Will repeat echocardio gram. Continue medication s. FU in 2 m, consider AICD if EF is still low. Overweight 807201843 E66 .3 Review weight reduction strategy, encouragem ent and support provided. [id number] ABDIRASHID CHRISTIE MD [address] [place] [address] 07/01/2021 16:00:14 07/01/2021 17:40:07 Hyperlipidemia 48893772 E78.2 Stable and to continue medication s. Repeat lab annually. Essential hypertension 55748572 I10 Blood pressure is good, monitor. Encourage to stay physically active as tolerate. Coronary arteriosclerosis 84619760 I25.10 Stable as he tolerates daily physical activities . Review and encourage to report back if having sxs. Discuss risk modificati on. FU in 3m. Congestive heart failure 19746874 I50.9 Stable edema, continue monitor, review risk of CHF exacerbati on. Generalize d ischemic myocardial dysfunction 288592365 I25.5 Result of the echocardio gram reviewed, EF 38%, continue current medication s. Overweight 995636336 E66 .3 Review weight reduction strategy, encouragem ent and support provided. Health Concerns Section Related Observation LastModified by Organization Detai ls LastModified Time None Recorded Concern Status LastModified by Organization Details LastModified Time None Recorded Advance Directives Directive None Recorded Payers Insurance Date Sequence Insurance Name Policy Number Policy [place] Covered Member ID [place] Member ID Guarantor Name 09/13/2024 1 [place] (MEDICARE[place] José Basurto [id number] José Basurto 05/21/2023 2 [employer] (MEDICARE SUPPLEMENT) José Basurto [id number] José Basurto 05/21/2023 2 INTERFACE REVIEW REQUIRED José Basurto [id number] José Basurto 05/21/2023 2 [employer] - [facility] (SECONDARY) José Basurto [id number] José Basurto Notes Date Note Type Note [...] baseline. Weight is stable. ABDIRASHID CHRISTIE MD [address], [place], [phone], [address] 08/01/2019 12:09:45 04/03/2021 text/html Patient is a 76-year-old gentleman who approximately a week ago underwent an endovascular peripheral infrarenal abdominal aortic aneurysm. Appears to be doing well. However he did develop some erythema at the site of the groin incisions. No fevers no chills. Slight clear drainage. No foul order. No purulence. Some difficulty ambulating due to overall debility. SOFI HEART MD [address] [place] [address], [phone], [address] 04/03/2021 10:09:26 04/13/2021 text/html Patient is [...] does complain of constipation. SOFI HEART MD [address] [place] [address], [phone], [address] 04/13/2021 17:05:53 04/24/2021 text/html Mr Basurto comes in for follow up of CAD s/p CABG 3 vessel in 08/2018, ischemic cardiomyopathy, CHF, HTN, HLD and overweight. Shortness of breath and limited walking, weight is stable, edema is stable. No palpitations. ABDIRASHID CHRISTIE MD [address], [place], [address], [address] 04/24/2021 12:27:46 07/01/2021 text/html Mr Basurto [...] is taking at home. ABDIRASHID CHRISTIE MD [address] [facility], [place], [address], [facility] [place] 07/01/2021 17:19:37
--- OUTSIDE RECORDS SUMMARY | 2024-11-29 07:14 | XMS_ITS | Data Portability ---
Author Organization [facility] & TREVON Martinez ADMIN Address [address] [place] [id number] Care Team Providers Care Roller Turner Name Role Phone KIRSTY MENDOZA Primary Care Provider Assessment No assessment recorded. Plan of Treatment Reminders Order Date Submit Date Provider Last Modified By Organization Details Last Modified Time Details Appointments Medicare Annual Wellness 30min 2024 08:30A M Kirsty Mendoza MD Not available Not available Not available Lab PSA, total, serum or plasma 2023 024 [facility], [address], [address], [place], [address], 12/15/2023 08:23:59 CMP, serum or plasma 2023 024 EL[facility]NA [facility], [address], [address], [place], [address], 12/15/2023 08:23:57 lipid panel, serum 2023 024 [facility], [address], [address], [place], [address], 12/15/2023 08:23:57 CBC w/ auto diff 2023 024 EL[facility]NA [facility], [address], [address], [place], [address], 12/15/2023 08:23:56 thyroid panel, serum 2023 024 [facility]NA [facility], [address], [address], [place], [address], 12/15/2023 08:23:58 CMP, serum or plasma 2022 023 [facility], [address], [address], [place], [address], 12/01/2022 04:09:02 PSA, total, serum or plasma 2022 023 [facility], [address], [address], [place], [address], 12/01/2022 04:09:03 CBC w/ auto diff 2022 023 EL[facility]NA [facility], [address], [address], [place], [address], 12/01/2022 04:09:00 CMP, serum or plasma 2022 023 [email or web address] [facility], [address], [address], [place], [address], 12/08/2022 10:12:09 lipid panel, serum 2022 023 ELIANA [facility], [address], [address], [place], [address], 12/01/2022 04:09:02 vitamin B12 + folate, serum or blood 2021 022 ELIANA [facility], [address], [address], [place], [address], 03/24/2022 08:20:24 Referral None recorded. Procedures None recorded. Surgeries None recorded. Imaging pharmacol ogic nuclear stress test 2023 024 [email or web address] [facility], [address], [place], [address], 03/28/2024 11:57:47 LDCT, chest, for lung cancer screening 2022 023 [email or web address] [facility] ([facility] Sched[facility]), [address], [place], [address], 01/26/2023 16:58:12 Medication Orders Lasix 40 mg tablet 2023 024 [facility], [address] [place] [address], [address], 12/06/2023 10:04:25 potassium chloride ER 10 mEq tablet,ex tended release 2023 024 [facility], [address] [place] [address], [address], 12/06/2023 10:04:26 Xarelto 20 mg tablet 2023 024 [facility], [address] [place] [address], [address], 12/06/2023 10:04:24 Advair Diskus 250 mcg-50 mcg/dose powder for inhalatio n 2023 024 [facility] [address] [place] [address], [address], 12/06/2023 10:04:29 Wixela Inhub 100 mcg-50 mcg/dose powder for inhalatio n 2023 024 [facility], [address] [place] [address], [address], 12/14/2023 10:11:45 duloxetin e 60 mg capsule,d elayed release 2023 024 [facility] [address] [place] [address], [address], 12/06/2023 09:10:56 triamcino lone acetonide 0.1 % topical ointment [email or web address], [address] [place], [address], 10/14/2023 11:11:19 ketoconaz ole 200 mg tablet [email or web address], [address] [place] [address], [address], 11/30/2022 10:16:25 Ozempic 0.25 mg or 0.5 mg (2 mg/1.5 mL) subcutane ous pen injector [id number], [address] [place] [address], [address], 11/30/2022 10:16:04 Patient TargetsNo targets recorded. Patient Instructions Encounter Date Encounter Id Patient Instructions Last Modified By Organization Details Last Modified Time 11/30/2022 [id number] advance directives: care instructions [email or web address] Not available 11/30/2022 11:20:29 Health Maintenance Recommendations: (5-10 year screening/prevent ion plan) [email or web address] Not available 11/30/2022 10:13:54 12/14/2023 [id number] advance directives: care instructions [email or web address] Not available 12/14/2023 10:23:41 Health Maintenance Recommendations: (5-10 year screening/prevent ion plan) [email or web address] Not available 12/14/2023 09:54:18 Reason for Referral None Reported. Results Created Date Observation Date Name Description Value Unit Range Abnormal Flag Note LastModifiedBy Organization Detail LastModifiedTime 03/23/2003/24/2022 VITAM IN B12 AND FOLAT E vitamin B12 609 pg/mL 232-12 45 Not Available [facility] ([facility]) [address] [facility], [place], [address], 03/24/2022 08:20:24 03/23/2003/24/2022 VITAM IN B12 AND FOLAT E folate (folic acid), serum 19.8 NG/mL >3.0 A serum folat e vicki ntrat ion of less than 3.1 ng/mL is consi dered to repre sent clini cade defic iency . Not Available [facility] ([facility]) [address] [facility], [place], [address], 03/24/2022 08:20:24 12/01/19 23 12/01/2022 CBC WITH DIFFE RENTI AL/PL ATELE T WBC 7.6 x10e3 /uL 3.4-10 .8 Not Available [facility] ([facility]) [address] [place], [address], 12/01/2022 04:09:00 12/01/19 23 12/01/2022 CBC WITH DIFFE RENTI AL/PL ATELE T RBC 4.72 x10e6 /uL 4.14-5 .80 Not Available [facility] ([facility]) [address] [place], [address], 12/01/2022 04:09:00 12/01/19 23 12/01/2022 CBC WITH DIFFE RENTI AL/PL ATELE T hemoglobin 13.8 g/dL 13.0-1 7.7 Not Available [facility] ([facility]) [address] [place], [address], 12/01/2022 04:09:00 12/01/19 23 12/01/2022 CBC WITH DIFFE RENTI AL/PL ATELE T hematocrit 41.5 % 37.5-5 1.0 Not Available [facility] ([facility]) [address] [place], [address], 12/01/2022 04:09:00 12/01/19 23 12/01/2022 CBC WITH DIFFE RENTI AL/PL ATELE T MCV 88 fL 79-97 Not Available [facility] ([facility]) [address] [facility] [place], [address], 12/01/2022 04:09:00 12/01/19 23 12/01/2022 CBC WITH DIFFE RENTI AL/PL ATELE T MCH 29.2 pg 26.6-3 3.0 Not Available [facility] ([facility]) [address] [facility], [place], [address], 12/01/2022 04:09:00 12/01/19 23 12/01/2022 CBC WITH DIFFE RENTI AL/PL ATELE T MCHC 33.3 g/dL 31.5-3 5.7 Not Available [facility] ([facility]) [address] [facility], [place], [address], 12/01/2022 04:09:00 12/01/19 23 12/01/2022 CBC WITH DIFFE RENTI AL/PL ATELE T RDW 14.0 % 11.6-1 5.4 Not Available [facility] ([facility]) [address] [facility], [place], [address], 12/01/2022 04:09:00 12/01/1912/01/2022 CBC WITH DIFFE RENTI AL/PL ATELE T platelets 176 x10e3 /uL 150-45 0 Not Available [facility] ([facility]) [address] [facility], [place], [address], 12/01/2022 04:09:00 12/01/19 23 12/01/2022 CBC WITH DIFFE RENTI AL/PL ATELE T neutrophils 64 % not estab. Not Available [facility] ([facility]) [address] [facility], [place], [address], 12/01/2022 04:09:00 12/01/19 23 12/01/2022 CBC WITH DIFFE RENTI AL/PL ATELE T lymphs 20 % not estab. Not Available [facility] ([facility]) [address] [facility], [place], [address], 12/01/2022 04:09:00 12/01/19 23 12/01/2022 CBC WITH DIFFE RENTI AL/PL ATELE T monocytes 8 % not estab. Not Available [facility] ([facility]) [address] [facility], [place], [address], 12/01/2022 04:09:00 12/01/19 23 12/01/2022 CBC WITH DIFFE RENTI AL/PL ATELE T eos 7 % not estab. Not Available [facility] ([facility]) [address] [facility], [place], [address], 12/01/2022 04:09:00 12/01/19 23 12/01/2022 CBC WITH DIFFE RENTI AL/PL ATELE T basos 1 % not estab. 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 0 Not Available [facility] ([facility]) [address] [place], [address], 12/01/2022 04:09:00 12/01/1912/01/2022 CBC WITH DIFFE RENTI AL/PL ATELE T lymphs (absolute) 1.5 x10e3 /uL 0.7-3. 1 Not Available [facility] ([facility]) [address] [place], [address], 12/01/2022 04:09:00 12/01/19 23 12/01/2022 CBC WITH DIFFE RENTI AL/PL ATELE T monocytes(ab solute) 0.6 x10e3 /uL 0.1-0. 9 Not Available [facility] ([facility]) [address] [facility], [place], [address], 12/01/2022 04:09:00 12/01/19 23 12/01/2022 CBC WITH DIFFE RENTI AL/PL ATELE T eos (absolute) 0.5 x10e3 /uL 0.0-0. 4 above high normal Not Available [facility] ([facility]) [address] [place], [address], 12/01/2022 04:09:00 12/01/19 23 12/01/2022 CBC WITH DIFFE RENTI AL/PL ATELE T baso (absolute) 0.1 x10e3 /uL 0.0-0. 2 Not Available [facility] ([facility]) [address] [facility], [place], [address], 12/01/2022 04:09:00 12/01/19 23 12/01/2022 CBC WITH DIFFE RENTI AL/PL ATELE T immature granulocytes 0 % not estab. Not Available [facility] ([facility]) [address] [facility], [place], [address], 12/01/2022 04:09:00 12/01/1912/01/2022 CBC WITH DIFFE RENTI AL/PL ATELE T immature grans (abs) 0.0 x10e3 /uL 0.0-0. 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 METAB OLIC PANEL (14) glucose 99 mg/dL 70-99 Not Available [facility] ([facility]) [address] [facility], [place], [address], 12/01/2022 04:09:02 12/01/19 23 12/01/2022 COMP. METAB OLIC PANEL (14) BUN 13 mg/dL 8-27 Not Available [facility] ([facility]) [address] [facility], [place], [address], 12/01/2022 04:09:02 12/01/19 23 12/01/2022 COMP. METAB OLIC PANEL (14) creatinine 1.07 mg/dL 0.76-1 .27 Not Available [facility] ([facility]) [address] [place], [address], 12/01/2022 04:09:02 12/01/19 23 12/01/2022 COMP. METAB OLIC PANEL (14) eGFR 71 mL/mi n/1.7 3 >59 Not Available [facility] ([facility]) [address] [facility], [place], [address], 12/01/2022 04:09:02 12/01/19 23 12/01/2022 COMP. METAB OLIC PANEL (14) BUN/creatini ne ratio 12 10-24 Not Available [facility] ([facility]) [address] [place], [address], 12/01/2022 04:09:02 12/01/19 23 12/01/2022 COMP. METAB OLIC PANEL (14) sodium 138 mmol/ L 134-14 4 Not Available [facility] ([facility]) [address] [place], [address], 12/01/2022 04:09:02 12/01/19 23 12/01/2022 COMP. METAB OLIC PANEL (14) potassium 4.3 mmol/ L 3.5-5. 2 Not Available [facility] ([facility]) [address] [place], [address], 12/01/2022 04:09:02 12/01/19 23 12/01/2022 COMP. METAB OLIC PANEL (14) chloride 102 mmol/ L 96-106 Not Available [facility] ([facility]) [address] [place], [address], 12/01/2022 04:09:02 12/01/19 23 12/01/2022 COMP. METAB OLIC PANEL (14) carbon dioxide, total 24 mmol/ L 20-29 Not Available [facility] ([facility]) [address] [place], [address], 12/01/2022 04:09:02 12/01/19 23 12/01/2022 COMP. METAB OLIC PANEL (14) calcium 9.2 mg/dL 8.6-10 .2 Not Available [facility] ([facility]) [address] [facility] [place], [address], 12/01/2022 04:09:02 12/01/19 23 12/01/2022 COMP. METAB OLIC PANEL (14) protein, total 7.0 g/dL 6.0-8. 5 Not Available [facility] ([facility]) [address] [facility] [place], [address], 12/01/2022 04:09:02 12/01/19 23 12/01/2022 COMP. METAB [...] 4.6 3.6 - 4.6 Not Available [facility] ([facility]) [address] [place], [address], 12/01/2022 04:09:02 12/01/19 23 12/01/2022 COMP. METAB OLIC PANEL (14) globulin, total 3.2 g/dL 1.5-4. 5 Not Available [facility] ([facility]) [address] [place], [address], 12/01/2022 04:09:02 12/01/19 23 12/01/2022 COMP. METAB OLIC PANEL (14) A/G ratio 1.2 1.2-2. 2 Not Available [facility] ([facility]) [address] [place], [address], 12/01/2022 04:09:02 12/01/19 23 12/01/2022 COMP. METAB OLIC PANEL (14) bilirubin, total 0.4 mg/dL 0.0-1. 2 Not Available [facility] ([facility]) [address] [facility] [place] [place], [address], 12/01/2022 04:09:02 12/01/19 23 12/01/2022 COMP. METAB OLIC PANEL (14) alkaline phosphatase 116 IU/L 44-121 Not Available [facility] ([facility]) [address] [place], [address], 12/01/2022 04:09:02 12/01/19 23 12/01/2022 COMP. METAB OLIC PANEL (14) AST (SGOT) 17 IU/L 0-40 Not Available [facility] ([facility]) [address] [facility] [place] [place], [address], 12/01/2022 04:09:02 12/01/19 23 12/01/2022 COMP. METAB OLIC PANEL (14) ALT (SGPT) 7 IU/L 0-44 Not Available [facility] ([facility]) [address] [facility] [place], [address], 12/01/2022 04:09:02 12/01/19 23 12/01/2022 LIPID PANEL cholesterol, total 143 mg/dL 100-19 9 Not Available [facility] ([facility]) [address] [facility] [place] [place], [address], 12/01/2022 04:09:02 12/01/19 23 12/01/2022 LIPID PANEL triglyceride s 110 mg/dL 0-149 Not Available [facility] ([facility]) [address] [facility] [place] [place], [address], 12/01/2022 04:09:02 12/01/19 23 12/01/2022 LIPID PANEL HDL cholesterol 24 mg/dL >39 below low normal Not Available [facility] ([facility]) [address] [facility] [place] [place], [address], 12/01/2022 04:09:02 12/01/19 23 12/01/2022 LIPID PANEL VLDL cholesterol cade 21 mg/dL 5-40 Not Available [facility] ([facility]) [address] [facility], [place], [address], 12/01/2022 04:09:02 12/01/19 23 12/01/2022 LIPID PANEL LDL chol calc ([facility]) 98 mg/dL 0-99 Not Available [facility] ([facility]) [address] [facility], [place], [address], 12/01/2022 04:09:02 12/01/19 23 12/01/2022 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 Not Available [facility] ([facility]) [address] [facility], [place], [address], 12/01/2022 04:09:03 12/14/19 24 12/15/2023 CBC WITH DIFFE RENTI AL/PL ATELE T WBC 8.1 x10e3 /uL 3.4-10 .8 Not Available [facility] ([facility]) [address] [facility], [place], [address], 12/15/2023 08:23:56 12/14/19 24 12/15/2023 CBC WITH DIFFE RENTI AL/PL ATELE T RBC 5.01 x10e6 /uL 4.14-5 .80 Not Available [facility] ([facility]) [address] [facility], [place], [address], 12/15/2023 08:23:56 12/14/19 24 12/15/2023 CBC WITH DIFFE RENTI AL/PL ATELE T hemoglobin 14.3 g/dL 13.0-1 7.7 Not Available [facility] ([facility]) [address] [facility], [place], [address], 12/15/2023 08:23:56 12/14/19 24 12/15/2023 CBC WITH DIFFE RENTI AL/PL ATELE T hematocrit 44.1 % 37.5-5 1.0 Not Available [facility] ([facility]) [address] [place], [address], 12/15/2023 08:23:56 12/14/19 24 12/15/2023 CBC WITH DIFFE RENTI AL/PL ATELE T MCV 88 fL 79-97 Not Available [facility] ([facility]) [address] [place], [address], 12/15/2023 08:23:56 12/14/19 24 12/15/2023 CBC WITH DIFFE RENTI AL/PL ATELE T MCH 28.5 pg 26.6-3 3.0 Not Available [facility] ([facility]) [address] [place], [address], 12/15/2023 08:23:56 12/14/19 24 12/15/2023 CBC WITH DIFFE RENTI AL/PL ATELE T MCHC 32.4 g/dL 31.5-3 5.7 Not Available [facility] ([facility]) [address] [facility], [place], [address], 12/15/2023 08:23:56 12/14/19 24 12/15/2023 CBC WITH DIFFE RENTI AL/PL ATELE T RDW 13.8 % 11.6-1 5.4 Not Available [facility] ([facility]) [address] [facility], [place], [address], 12/15/2023 08:23:56 12/14/19 24 12/15/2023 CBC WITH DIFFE RENTI AL/PL ATELE T platelets 192 x10e3 /uL 150-45 0 Not Available [facility] ([facility]) [address] [facility], [place], [address], 12/15/2023 08:23:56 12/14/19 24 12/15/2023 CBC WITH DIFFE RENTI AL/PL ATELE T neutrophils 67 % not estab. Not Available [facility] ([facility]) [address] [facility], [place], [address], 12/15/2023 08:23:56 12/14/19 24 12/15/2023 CBC WITH DIFFE RENTI AL/PL ATELE T lymphs 19 % not estab. Not Available [facility] ([facility]) [address] [facility], [place], [address], 12/15/2023 08:23:56 12/14/19 24 12/15/2023 CBC WITH DIFFE RENTI AL/PL ATELE T monocytes 7 % not estab. Not Available [facility] ([facility]) [address] [facility], [place], [address], 12/15/2023 08:23:56 12/14/19 24 12/15/2023 CBC WITH DIFFE RENTI AL/PL ATELE T eos 6 % not estab. Not Available [facility] ([facility]) [address] [facility], [place], [address], 12/15/2023 08:23:56 12/14/19 24 12/15/2023 CBC WITH DIFFE RENTI AL/PL ATELE T basos 1 % not estab. 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 0 Not Available [facility] ([facility]) [address] [place], [address], 12/15/2023 08:23:56 12/14/19 24 12/15/2023 CBC WITH DIFFE RENTI AL/PL ATELE T lymphs (absolute) 1.6 x10e3 /uL 0.7-3. 1 Not Available [facility] ([facility]) [address] [place], [address], 12/15/2023 08:23:56 12/14/19 24 12/15/2023 CBC WITH DIFFE RENTI AL/PL ATELE T monocytes(ab solute) 0.6 x10e3 /uL 0.1-0. 9 Not Available [facility] ([facility]) [address] [place], [address], 12/15/2023 08:23:56 12/14/19 24 12/15/2023 CBC WITH DIFFE RENTI AL/PL ATELE T eos (absolute) 0.5 x10e3 /uL 0.0-0. 4 above high normal Not Available [facility] ([facility]) [address] [place], [address], 12/15/2023 08:23:56 12/14/19 24 12/15/2023 CBC WITH DIFFE RENTI AL/PL ATELE T baso (absolute) 0.1 x10e3 /uL 0.0-0. 2 Not Available [facility] ([facility]) [address] [facility], [place], [address], 12/15/2023 08:23:56 12/14/19 24 12/15/2023 CBC WITH DIFFE RENTI AL/PL ATELE T immature granulocytes 0 % not estab. Not Available [facility] ([facility]) [address] [facility], [place], [address], 12/15/2023 08:23:56 12/14/19 24 12/15/2023 CBC WITH DIFFE RENTI AL/PL ATELE T immature grans (abs) 0.0 x10e3 /uL 0.0-0. 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 METAB OLIC PANEL (14) glucose 99 mg/dL 70-99 Not Available [facility] ([facility]) [address] [facility], [place], [address], 12/15/2023 08:23:57 12/14/19 24 12/15/2023 COMP. METAB OLIC PANEL (14) BUN 23 mg/dL 8-27 Not Available [facility] ([facility]) [address] [facility], [place], [address], 12/15/2023 08:23:57 12/14/19 24 12/15/2023 COMP. METAB OLIC PANEL (14) creatinine 1.20 mg/dL 0.76-1 .27 Not Available [facility] ([facility]) [address] [facility], [place], [address], 12/15/2023 08:23:57 12/14/19 24 12/15/2023 COMP. METAB OLIC PANEL (14) eGFR 62 mL/mi n/1.7 3 >59 Not Available [facility] ([facility]) [address] [facility], [place], [address], 12/15/2023 08:23:57 12/14/19 24 12/15/2023 COMP. METAB OLIC PANEL (14) BUN/creatini ne ratio 19 10-24 Not Available [facility] ([facility]) [address] [facility], [place], [address], 12/15/2023 08:23:57 12/14/19 24 12/15/2023 COMP. METAB OLIC PANEL (14) sodium 139 mmol/ L 134-14 4 Not Available [facility] ([facility]) [address] [place], [address], 12/15/2023 08:23:57 12/14/19 24 12/15/2023 COMP. METAB OLIC PANEL (14) potassium 4.2 mmol/ L 3.5-5. 2 Not Available [facility] ([facility]) [address] [facility], [place], [address], 12/15/2023 08:23:57 12/14/19 24 12/15/2023 COMP. METAB OLIC PANEL (14) chloride 99 mmol/ L 96-106 Not Available [facility] ([facility]) [address] [facility] [place] [place], [address], 12/15/2023 08:23:57 12/14/19 24 12/15/2023 COMP. METAB OLIC PANEL (14) carbon dioxide, total 22 mmol/ L 20-29 Not Available [facility] ([facility]) [address] [place], [address], 12/15/2023 08:23:57 12/14/19 24 12/15/2023 COMP. METAB OLIC PANEL (14) calcium 9.3 mg/dL 8.6-10 .2 Not Available [facility] ([facility]) [address] [place], [address], 12/15/2023 08:23:57 12/14/19 24 12/15/2023 COMP. METAB OLIC PANEL (14) protein, total 7.2 g/dL 6.0-8. 5 Not Available [facility] ([facility]) [address] [facility] [place] [place], [address], 12/15/2023 08:23:57 12/14/19 24 12/15/2023 COMP. METAB OLIC PANEL (14) albumin 4.0 g/dL 3.8-4. 8 Not Available [facility] ([facility]) [address] [facility] [place] [place], [address], 12/15/2023 08:23:57 12/14/19 24 12/15/2023 COMP. METAB OLIC PANEL (14) globulin, total 3.2 g/dL 1.5-4. 5 Not Available [facility] ([facility]) [address] [facility] [place] [place], [address], 12/15/2023 08:23:57 12/14/19 24 12/15/2023 COMP. METAB OLIC PANEL (14) bilirubin, total 0.4 mg/dL 0.0-1. 2 Not Available [facility] ([facility]) [address] [facility], [place], [address], 12/15/2023 08:23:57 12/14/19 24 12/15/2023 COMP. METAB OLIC PANEL (14) alkaline phosphatase 120 IU/L 44-121 Not Available [facility] ([facility]) [address] [facility], [place], [address], 12/15/2023 08:23:57 12/14/19 24 12/15/2023 COMP. METAB OLIC PANEL (14) AST (SGOT) 16 IU/L 0-40 Not Available [facility] ([facility]) [address] [facility], [place], [address], 12/15/2023 08:23:57 12/14/19 24 12/15/2023 COMP. METAB OLIC PANEL (14) ALT (SGPT) 10 IU/L 0-44 Not Available [facility] ([facility]) [address] [facility], [place], [address], 12/15/2023 08:23:57 12/14/19 24 12/15/2023 LIPID PANEL cholesterol, total 142 mg/dL 100-19 9 Not Available [facility] ([facility]) [address] [facility], [place], [address], 12/15/2023 08:23:57 12/14/19 24 12/15/2023 LIPID PANEL triglyceride s 87 mg/dL 0-149 Not Available [facility] ([facility]) [address] [place], [address], 12/15/2023 08:23:57 12/14/19 24 12/15/2023 LIPID PANEL HDL cholesterol 30 mg/dL >39 below low normal Not Available [facility] ([facility]) [address] [place], [address], 12/15/2023 08:23:57 12/14/19 24 12/15/2023 LIPID PANEL VLDL cholesterol cade 17 mg/dL 5-40 Not Available [facility] ([facility]) [address] [place], [address], 12/15/2023 08:23:57 12/14/19 24 12/15/2023 LIPID PANEL LDL chol calc ([facility]) 95 mg/dL 0-99 Not Available [facility] ([facility]) [address] [place], [address], 12/15/2023 08:23:57 12/14/19 24 12/15/2023 LIPID PANEL LDL calc comment: [employer]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 Not Available [facility] ([facility]) [address] [place], [address], 12/15/2023 08:23:57 12/14/19 24 12/15/2023 THYRO ID PANEL WITH TSH TSH 1.220 uIU/m L 0.450- 4.500 Not Available [facility] ([facility]) [address] [place], [address], 12/15/2023 08:23:58 12/14/19 24 12/15/2023 THYRO ID PANEL WITH TSH thyroxine (T4) 7.2 ug/dL 4.5-12 .0 Not Available [facility] ([facility]) [address] [place], [address], 12/15/2023 08:23:58 12/14/19 24 12/15/2023 THYRO ID PANEL WITH TSH T3 uptake 31 % 24-39 Not Available [facility] ([facility]) [address] [place], [address], 12/15/2023 08:23:58 12/14/19 24 12/15/2023 THYRO ID PANEL WITH TSH free thyroxine index 2.2 1.2-4. 9 Not Available [facility] ([facility]) [address] [place], [address], 12/15/2023 08:23:58 12/14/19 24 12/15/2023 PROST ATE-S [...] t be inter prete d as absol bishop paiute evide nce of the prese nce or absen ce of david navarro se. Not Available [facility] ([facility]) [address] [facility], [place], [address], 12/15/2023 08:23:59 04/06/20 22 04/05/2022 MRI, lumba r spine , w/o contr ast No observ ation record ed. [facility] [address] [facility] [address], [place], [address], 04/06/2022 09:48:22 04/26/20 22 04/26/2022 MRI, brain , w/o contr ast No observ ation record ed. [email or web address] [facility] [address] [facility] [address], [place], [address], 05/03/2022 08:24:44 11/25/19 23 10/31/2014 DEXA No observ ation record ed. [email or web address] Not Available 17:09:05 12/15/19 24 12/15/2023 elect jaime irizarry am No observ ation record ed. [facility] [address] [facility] [address], [place], [address], 12/15/2023 16:23:03 12/15/19 24 12/06/2023 elect rocar diogr am No observ ation record ed. [facility] [address], [place], [address], 12/15/2023 16:22:37 03/07/20 24 03/07/2024 XR, chest No observ ation record ed. [address] (Radiology) [address] , [place], [address], 03/09/2024 11:18:01 11/18/19 25 11/16/2024 elect rocar diogr am, routi ne ECG, 12 leads min No observ ation record ed. [address], [place], [address], 11/19/2024 08:56:47 11/18/19 25 11/15/2024 elect rocar diogr am, routi ne ECG, 12 leads min No observ ation record ed. [address], [place], [address], 11/19/2024 08:56:37 Result Notes None recorded. Problems Name Problem SNOMED Code Status Onset Date Resolution Date Notes Provider Name and Address Organization Details Recorded Time Obesity 933228374 Active Bing Couch null, [place] [facility] [place] & [place] 2 11:27:47 Degenerati on of lumbar interverte bral disc 68295685 Active Bing Couch [place], [place] [place] & [place] 2 11:27:47 Low back pain 561216227 Active 2011 Bing Couch [place], [place] 2 11:27:47 Neuropathy 305130175 Active Bing Couch [place] 2 11:27:47 Pruritic disorder 765831112 Active 2010 Bing Couch [place] 2 11:27:47 Benign essential hypertensi on 7057731 Active 2010 Bing Couch [place] 2 11:27:47 First degree atrioventr icular block 297658561 Active Bing Baronech null, [place] 2 11:27:47 Chronic pain 25744510 Active Bing Lizabethch [place] 2 11:27:47 Generalize d anxiety disorder 02995076 Active 2011 Bing Lizabethch [place] 2 11:27:47 Long-term current use of drug therapy 827395654 Active Bing Couch [place] 2 11:27:47 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 847676176 Active 2010 Bing Couch [place] 2 11:27:47 Contact dermatitis 21433065 Active 2011 Bing Lizabethch [place] 2 11:27:47 Coronary arterioscl erosis 41905008 Active Bing Couch [place] 2 11:27:47 Disorder of cardiovasc ular system 23415423 Active Bing Couch [place] 2 11:27:47 Acute bronchitis 98043459 Active Bing Couch [place] 2 11:27:47 Hypertensi ve disorder 93747013 Active Bing Couch [place] 2 11:27:47 Kyphosis of thoracic spine 357003561 Active Bing Couch [place] 2 11:27:47 Chronic pain syndrome 732657473 Active Bing Couch [place] 2 11:27:47 Arthritis of right knee 3428530370811 102 Active Bing Couch [place] 2 11:27:47 Coronary arterioscl erosis in [place] artery 5514950620753 Active Bing Couch [place] 2 11:27:47 Chronic obstructiv e pulmonary disease 54199569 Active 2011 Bing Couch [place] 2 11:27:47 Morbid obesity 348715645 Active Bing Couch [place] 2 11:27:48 Arthritis of left knee 9771188477035 104 Active Bing Couch [place] 2 11:27:48 Tobacco dependence syndrome 48996691 Active Bing Couch [place] 2 11:27:48 Eruption 243616778 Active 2010 Bing Couch [place] 2 11:27:48 Abnormal gait 04343811 Active Bing Couch [place] 2 11:27:48 Sinusitis 29904008 Active Bing Couch [place] 2 11:27:48 Osteopenia 403161769 Active Bing Couch [place] 2 11:27:48 Hereditary peripheral neuropathy 64905435 Active 2010 Bing Couch [place] 2 11:27:48 Hyperlipid emia 50566606 Active Bing Couch [place] 2 11:27:48 Injury of tendon 648599693 Active Bing cardoza, [place] & [place] 2 11:27:48 Aortic aneurysm 12717093 Active 2011 Bing cardoza, [place] 2 11:27:48 Cigarette smoker 92296203 Active 2023 Doron Nicholas MD [address] [place], [address] , [place] [facility] [place] 4 09:35:07 Dyspnea 034479252 Active 2023 Doron Nichloas MD [address] [facility] [address] , [place] - [facility] & [place] 4 09:39:15 Coronary atheroscle rosis 153902318 Active 2023 Doron Nicholas MD [address] [facility] [address] , [place] [facility] [facility] & [place] 4 09:39:43 Paroxysmal atrial fibrillati on 681537070 Active 2023 Doron Nicholas MD [address] [place], [address] , [place] [facility] [facility] & [place] 4 10:01:02 Ischemic congestive cardiomyop athy 496581732 Active 2023 Doron Nicholas MD [address] [place], [address] , [place] [facility] & [place] 4 10:02:51 Notes:Some problems listed i n Document: #[id number] could not be added to this patient's chart. Please review this document and add these problems to the patient's chart manually as needed. Problem Notes None recorded. Procedures Surgical History Date Name Laterality Status Provider Name and Address Organization Details Recorded Time 2 cervical arthrodesis completed Gianna Cordon [place] & [place] 11/26/2024 13:52:09 9 CABG completed Luz Maria Garza- [facility] [place] [facility] [place] & [place] 11/24/2022 16:56:29 8 procedure completed Luz Maria Garza- [facility] [place] [facility] [place] & [place] 11/24/2022 16:57:32 repair of tendo achilles completed Luz Maria Garza- [facility] [place] [facility] [place] & [place] 11/24/2022 16:55:48 Imaging Results None recorded. Procedure [...] Updated DateTime 4 177.8 cm 34.3 kg/m2 205002. 58 g 98.1 [degF] 96 % 96 % 60 /min 134 mm[Hg] 76 mm[Hg] [facility] 4 11:09:59 Date Recorded Body height Body mass index (BMI) Body weight Body temperature Oxygen saturation Oxygen saturation in Arterial blood by Pulse oximetry Heart rate Systolic blood pressure Diastolic blood pressure Provider Name and Address Organization Details Last Updated DateTime 3 177.8 cm 32.4 kg/m2 767488. 88 g 97.5 [degF] 89 % 89 % 81 /min 124 mm[Hg] 70 mm[Hg] [facility] & [place] 3 10:18:16 Date Recorded Body height Body mass index (BMI) Body weight Oxygen saturation Oxygen saturation in Arterial blood by Pulse oximetry Heart rate Systolic blood pressure Diastolic blood pressure Provider Name and Address Organization Details Last Updated DateTime 4 177.8 cm 33 kg/m2 099789. 25 g 97 % 97 % 41 /min 128 mm[Hg] 78 mm[Hg] Briana Man [facility] & [place] 4 09:13:04 Date Recorded Body height Body mass index (BMI) Body weight Body temperature Oxygen saturation Oxygen saturation in Arterial blood by Pulse oximetry Heart rate Systolic blood pressure Diastolic blood pressure Provider Name and Address Organization Details Last Updated DateTime 4 177.8 cm 32.1 kg/m2 616626. 69 g 97.3 [degF] 96 % 96 % 64 /min 156 mm[Hg] 84 mm[Hg] Bing AVITIA [facility] & [place] 4 10:11:07 Date Recorded Body weight Body mass index (BMI) Body height Body temperature Oxygen saturation Oxygen saturation in Arterial blood by Pulse oximetry Heart rate Systolic blood pressure Diastolic blood pressure Provider Name and Address Organization Details Last Updated DateTime 2 330609. 32 g 35.4 kg/m2 177.8 cm 98.2 [degF] 95 % 95 % 67 /min 120 mm[Hg] 70 mm[Hg] Bing AVITIA [facility] & [place] 2 11:27:32 Social History Question Answer Notes LastModified by Organizat ion Details LastModified Time Tobacco Smoking Status Current Every Day Smoker Bing Vázquez [facility] & [place] 03/23/2022 11:35:49 Do You Have An Advance Directive? Yes [email or web address] Information not available 11/30/2022 Are You Blind Or Do You Have Difficulty Seeing? No [email or web address] Information not available 11/30/2022 What Is Your Level Of Caffeine Consumption? Moderate [email or web address] Information not available 12/06/2023 Are You Deaf Or Do You Have Serious Difficulty Hearing? Yes Information not available 12/14/2023 What Type Of Diet Are You Following? REGULAR [email or web address] Information not available 11/30/2022 Have There Been Any Changes To Your Family Or Social Situation? No [email or web address] Information not available 11/30/2022 In General, Would You Say Your Health Is Good [email or web address] Information not available 12/14/2023 How Would You Describe The Condition Of Your Mouth And Teeth including False Teeth Or Dentures? Fair [email or web address] Information not available 12/14/2023 Each Night, How Many Hours Of Sleep Do You Usually Get? 5-6 Hours [email or web address] Information not available 12/14/2023 Do You Snore Or Has Anyone Told You That You Snore? No [email or web address] Information not available 11/30/2022 In The Past 7 Days, How Often Have You [place] Sleepy During The Daytime? Always [email or web address] Information not available 11/30/2022 Do You Have Chronic Pain? Yes [email or web address] Information not available 11/30/2022 If Yes, Location Of Pain Back [email or web address] Information not available 11/30/2022 In The Past 7 Days, How Would You Rate Your Pain? Moderate Pain(4-6) [email or web address] Information not available 11/30/2022 Are You In A Pain Management Program? No Information not available 11/30/2022 Do You Take Opioids For Your Pain? No [email or web address] Information not available 11/30/2022 How Often Is Stress A Problem For You In Handling Such Things As: Your Health, Your Finances, Your Family And Social Relationships, Your Work? Sometimes [email or web address] Information not available 11/30/2022 How Often Do You Get The Social And Emotional Support You Need: Usually [email or web address] Information not available 11/30/2022 In The Past 7 Days, Did You Need Help From Others To Take Care Of Things Such As Laundry And Housekeep- Ing, Banking, Shopping, Using The Telephone, Food Preparation, Transportation, Or Taking Your Own Medications? Yes Information not available 11/30/2022 Do You Live Alone? No [email or web address] Information not available 11/30/2022 Does Your Home Have Any Fall Risks (un-level Floors, Unfastened Rugs, Poor Lighting, Etc)? No [email or web address] Information not available 11/30/2022 Do You Feel Safe At Home? Yes Information not available 12/14/2023 What Is Your Current Pack Years? 30ormorepacky ears [email or web address] Information not available 03/23/2022 What Is Your Relationship Status? [email or web address] Information not available 11/30/2022 Do You Use Your Seat Belt Or Car Seat Routinely? Yes [email or web address] Information not available 11/30/2022 Do You Have Smoke And Carbon Monoxide Detectors In Your Home? Yes [email or web address] Information not available 11/30/2022 At What Age Did You Start Smoking Tobacco? 17 Reduced To 11-15 A Day [email or web address] Information not available 03/23/2022 How Much Tobacco Do You Smoke? 1 PPD Information not available 03/23/2022 How Many Years Have You Smoked Tobacco? 60 [email or web address] Information not available 12/14/2023 Do You Have Difficulty Walking Or Climbing Stairs? Yes [email or web address] Information not available 11/30/2022 Sex: Male Functional Status Question Answer Note LastModified by Organizat ion Details LastModified Time Do you use any illicit or recreational drugs? No [email or web address] Information not available 12/06/2023 What is your level of alcohol consumption? None Information not available 03/23/2022 Do you have transportation difficulties? No [email or web address] Information not available 11/30/2022 Are you able to walk? [email or web address] Information not available 11/30/2022 Do you have difficulty doing errands alone? Yes [email or web address] Information not available 11/30/2022 Are you able to care for yourself? Yes [email or web address] Information not available 11/30/2022 Do you have difficulty dressing or bathing? No [email or web address] Information not available 11/30/2022 What is your exercise level? None [email or web address] Information not available 11/30/2022 Mental Status Question Answer Note LastModified by Organizat ion Details LastModified Time Do you feel stressed (tense, restless, nervous, or anxious, or unable to sleep at night)? [id number] Information not available 11/30/2022 Do you have difficulty concentrating, remembering or making decisions? No [email or web address] Information no t available 11/30/2022 Family History Relationship Description Onset Age of this Age Resolved Age Notes LastModified by Organization Details LastModified Time Father Malignant neoplastic disease [email or web address] Not available 2023 09:34:23 Mother Malignant neoplastic disease [email or web address] Not available 05/08/ 2024 09:34:23 Mother Alzheimer's disease [email or web address] Not available [...] Garza- [facility] [place], [place] 11/24/2022 16:55:19 COVID-19, mRNA, LNP-S, PF, 100 mcg/0.5mL dose or 50 mcg/0.25mL dose 2 completed Luz Maria Garza- [facility] [place] 11/24/2022 16:55:19 COVID-19, mRNA, LNP-S, bivalent, PF, 50 mcg/0.5 mL or 25mcg/0.25 mL dose 2 completed Luz Maria Garza- [facility] [place] 11/24/2022 16:55:19 Influenza, high-dose, trivalent, PF 7 completed Luz Maria Garza- [place] 11/24/2022 16:55:19 Influenza, adjuvanted, trivalent, PF 9 completed Chrissy Mccormack [place] 10/12/2023 09:32:07 Influenza, adjuvanted, trivalent, PF 8 completed Chrissy Ksenia [place] 10/12/2023 09:32:07 zoster recombinant 1 completed Chrissy Mccormack [place] 10/12/2023 09:32:07 COVID-19, mRNA, LNP-S, PF, 100 mcg/0.5mL dose or 50 mcg/0.25mL dose 1 completed Chrissy Mccormack [place] 10/12/2023 09:32:07 COVID-19, mRNA, LNP-S, PF, 100 mcg/0.5mL dose or 50 mcg/0.25mL dose 1 completed Chrissy [place]senia [place] 10/12/2023 09:32:07 COVID-19, mRNA, LNP-S, PF, 100 mcg/0.5mL dose or 50 mcg/0.25mL dose 1 completed Chrissy [place]senia [place] 10/12/2023 09:32:08 pneumococcal polysaccharide PPV23 1 completed Chrissy [place] 10/12/2023 09:32:08 Tdap 0 completed Chrissy Ksen[place] 10/12/2023 09:32:08 Pneumococcal conjugate PCV 13 9 completed Chrissy Ksenia [place] 10/12/2023 09:32:08 Influenza, high-dose, trivalent, PF 5 completed Chrissy [place] 10/12/2023 09:32:08 Influenza, split virus, quadrivalent, PF 1 completed Chrissy [place]sen[place] 10/12/2023 09:32:08 Influenza, split virus, quadrivalent, PF 0 completed Chrissy [place] [facility] & [place] 10/12/2023 09:32:08 Past Encounters Encounter ID Performer Location Encounter Start Date Encounter Closed Date Diagnosis/Indication Diagnosis SNOMED-CT Code Diagnosis ICD10 Code Diagnosis Note [id number] Kirsty Mendoza MD [address] [place] [address] 03/23/2022 11:14:02 03/23/2022 11:56:51 Morbid obesity 244101496 E66.01 Neuropathy 132255221 G62 .9 Candidiasis of skin 4988 3006 B37.2 [id number] Kirsty Mendoza MD [facility] [address] [facility] [address] [place] [address] 11/30/2022 09:53:28 11/30/2022 11:01:07 Tobacco dependence syndrome 82342643 F17.210 Obesity 196446848 E66.9 Adult heal th examination 959368747 Z00.00 Discussed need for living well with [...] disorder 3548 9007 F32.A Low back pain 023385330 M54.50 Nocturia 538827477 R35.1 Eczema 26944672 L30.9 [id number] Kirsty Mendoza MD [facility] [address] [facility] [address] [place] [address] 10/14/2023 10:49:14 10/14/2023 11:48:09 Chronic low back pain 189650103 M54.50 Depressive disorder 3548 9007 F32.A Asthma 488248903 J45.90 9 [id number] Kirsty Mendoza MD [facility] [address] [place] [address] 12/14/2023 09:49:36 12/14/2023 10:41:44 Adult health examination 768218046 Z00.00 Discussed need for living well with [...] of continued nicotine abuse. Paroxysmal atrial fibrillation 685394717 I48.0 Ischemic c ongestive cardiomyopathy 681910432 I25.5 Nocturia 518453456 R35.1 Tobacco de pendence syndrome 62647800 F17.089 [id number] Doron Nicholas MD [facility] [address] [place] [address] 12/06/2023 08:55:25 12/06/2023 10:21:12 Cigarette smoker 00470828 F17.210 Complete smoking cessation strongly urged.Risk s associated with smoking including cardiovasc ular affects of [place] stroke in addition to high risk of long bladder and other cancers were discussed. Tips and resources provided as noted below We discuss many products that can help you quit smoking. These products include a nicotine patch, gum, lozenge, nasal spray, and inhaler or other prescripti on medication she has not motivated to quit at this point For more helpful tips and resources, visit:[facility] Cancer Soper' s smoke-free programs at www.smokef ree.gov 877-44U-QU IT ) Total of 7 minutes were spent discussing the above Chronic ob structive pulmonary disease 32118829 J44.9 Coronary atherosclerosis 262882046 I25.700 LVEF 45% with wall motion abnormalit ies. Will order stress test for ischemic evaluation .continue aggressive risk factor modificati on Dyspnea 225926126 R06.00 Given clinical presentati on and risk profile , will get stress test for ischemic evaluation and risk stratifica tion Paroxysmal atrial fibrillation 058132094 I48.0 rates well controlled . Will start Xarelto. Ischemic c ongestive cardiomyopathy 535981987 I25.5 LVEF around 45% possibly ischemic, stress test pendingcli nically well compensate d Noncomplia nce with medication regimen 688201146 Z91.148 he has been noncomplia nt with his medication s including statin and anticoagul ation. Health Concerns Section Related Observation LastModified by Organization Detai ls LastModified Time None Recorded Concern Status LastModified by Organization Details LastModified Time None Recorded Advance Directives Directive Y: Payers Insurance Date Sequence Insurance Name Policy Number Policy [place] Covered Member ID [place] Member ID Guarantor Name 10/14/2023 2 [employer] (MEDICARE SUPPLEMENT) José Basurto [id number] José Luna Alconde 11/26/2024 1 [place] José Basurto Jr [id number] José Luna Artemrashad Notes Date Note Type Note Provider Name [...] his Kirsty Mendoza MD [address], [place], [address], [facility] 03/23/2022 12:53:18 3 text/html He is here for Medicare annual wellness exam discuss his medical problems. He is history of chronic neck and back pain. , depression, COPD with continued nicotine abuse, obesity. He had surgery down a [place] for his neck and seems to be doing much better. He is currently off all narcotic prescriptions but still taking Lyrica. Currently on Cymbalta for his depressive disorder seems to be doing well. His past medical history, social history, surgical history, family history reviewed and preventive maintenance strategies discussed with the patient. Kirsty Mendoza MD [address], [place], [address], [facility] 11/30/2022 11:21:18 4 text/html He is here for follow-up. He and his girlfriend who moved back to [place] after the winter in [place]. He is history of chronic low back pain followed by pain management in [place], depression, asthma. He continues get Lyrica from his pain medicine physician in [place]. He needs a new power mobility device. [...] inhaler. Kirsty Mendoza MD [address], [place], [address], [facility] & [place] 10/14/2023 11:54:43 4 text/html 78 M here [...] social history: He is [place] in [place], Doron Nicholas MD [address], [place], [address], [facility] & [place] 12/06/2023 16:49:48 4 text/html He is here [...] maintenance strategies discussed patient. Kirsty Mendoza MD [address], [place], [address], [facility] - [place] - [place] & [place] 12/14/2023 12:40:16
--- OUTSIDE RECORDS SUMMARY | 2024-11-29 07:14 | XMS_ITS | Data Portability ---
Author Organization [place] - [employer], [employer], [facility] Address [address] [place] [address] Care Team Providers Care Brick Paver Name Role Phone CAMERON YAP Primary Care Provider CAMERON YAP Referring Provider [phone] FRANCISCO WOODY Referring Provider Assessment Encounter Date [...] mg tablet 2015 016 t[facility]ari [id number], [address] [place], [address], 6 11:32:17 Cheratussi n AC 10 mg-100 mg/5 mL oral liquid 2015 016 tcal[id number], [address] [place], [address], 6 11:32:17 ceftriaxon e 1 gram solution for injection 2015 016 tcalamari Not available 6 11:32:17 Patient TargetsNo targets recorded. Patient Instructions Encounter Date Encounter Id Patient Instructions Last Modified By Organization Details Last Modified Time 08/20/2015 [id number] bronchitis: care instructions tcalamari Not available 08/20/2015 [...] Address Organization Details Recorded Time Hypertensive disorder [id number] Active Elsa Gabriel [facility] 6 08:24:26 Problem Notes None recorded. Procedures Surgical History Date Name Laterality Status Provider Name and Address Organization Details Recorded Time 5 Foot [facility] completed [facility] 08/20/2015 08:23:02 Imaging Results None recorded. Procedure [...] % 96 % 33.4 kg/m2 98.1 [degF] 265085. 63322 g 71 /min 175.26 cm 140 mm[Hg] 60 mm[Hg] Sinai Smith [facility] 6 08:49:28 Social History Question Answer Notes LastModified by Reppify ion Details LastModified Time Tobacco Smoking Status Current Every Day Smoker Elsa cardoza [facility] 08/20/2015 08:24:26 Which Illicit Or Recreational [...] SNOMED-CT Code Diagnosis ICD10 Code Diagnosis Note [id number] ROSHAN Temple G [facility] [address] [place] [address] 08/20/2015 08:01:06 08/20/2015 09:34:57 Acute bronchitis 64281134 J20.9 Health Concerns Section Related Observation LastModified by Organization Detai ls LastModified Time None Recorded Concern Status LastModified by Organization Details LastModified Time None Recorded Advance Directives Directive None Recorded Payers Insurance Date Sequence Insurance Name Policy Number Policy [place] Covered Member ID [place] Member ID Guarantor Name 08/20/2015 2 [employer] (MEDICARE SUPPLEMENT) José Basurto [id number] José Basurto 04/07/2020 1 [place] José Basurto Jr [id number] José Basurto 08/20/2015 2 [place] José Basurto Jr [id number] José Basurto Notes Date Note Type Note Provider Name and Address Organization Details Recorded Time 08/20/2015 text/html Cough / ColdReported bypatient.Reason for visit:acute complaint Quality:productive ;deep;hacky Sputum Quality:yellow;whi te Severity:moderate Duration:intermitt ent Onset/Timin days ago Alleviating factors:nothing helps Aggravating factors:lying down Associated Symptoms:congestio n;cold/flu like symptoms;sore throat(last night); no fever; no post nasal drip ROSHAN Temple [address] [facility] [address], [place], [address], [facility] 08/20/2015 11:32:23
[2024-11-29] MEDS: SODIUM CHLORIDE 0.9% 10ML SYR (RAD ONLY) 10 ML IV (07:18)
[2024-11-29] MEDS: IOPAMIDOL-370 (76%);100ML BOTTLE 80 ML IV (07:18)
[2024-11-29] MEDS: 0.9 % SODIUM CHLORIDE 50 ML VIAL IV (07:18)
[2024-11-29 07:21] LABS: Albumin Level 3.6 g/dl (3.5-5.0); Chloride 106 mmol/L (98-107); Potassium 4.4 mmoL/L (3.5-5.1); Sodium 145 mmol/L (136-145)
[2024-11-29 07:23] LABS: Alanine Aminotransferase 18 U/L (12-78); Anion Gap 15.4 mEq/L (5-15); Aspartate Amino Transferase 34 U/L (17-59); Carbon Dioxide 28 mmol/L (22.0-30.0); Creatinine Clearance Estimated 72 mL/min (50-200); Estimated Glomerular Filt Rate 58 ml/min (>60); GFR (African American) 70 ML/MIN (>60)
[2024-11-29 07:24] LABS: Albumin/Globulin Ratio 1.2 (1.1-1.8); Alkaline Phosphatase 113 U/L (38-126); Bilirubin,Total 0.2 mg/dl (0.2-1.3); Calcium 8.6 mg/dl (8.4-10.2); Globulin 2.9 g/dL (1.3-3.2); Glucose 98 mg/dl (74-100); Lipase 79 U/L (23-300); Total Protein,Serum 6.5 g/dl (6.3-8.2)
--- NOTE | 2024-11-29 07:32 | PC.NURSE ---
Rounded on the pt. no new complaints at this time. no needs voiced. call neil in reach.
[2024-11-29 07:38] LABS: Blood Urea Nitrogen 85 mg/dl (9-20)
[2024-11-29] MEDS: LACTATED RINGERS 1000ML 1,000 ML 999 ML IV (07:45)
[2024-11-29 07:59] LABS: Lactic Acid 1.7 mmol/L (0.7-2.1)
--- NOTE | 2024-11-29 08:09 | PC.NURSE ---
speaking with the hospitalist about admission.
--- NOTE | 2024-11-29 08:11 | PC.NURSE ---
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
--- NOTE | 2024-11-29 08:14 | PC.NURSE ---
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
[2024-11-29 08:26] LABS: Eosinophils % 1 % (0-3); Hypochromasia 1+; Lymphocytes % 24 % (10-50); Monocytes % 3 % (2-9); Neutrophils % 72 % (42-76); Platelet Estimate Normal; Total Cells Counted 100
--- NOTE | 2024-11-29 08:26 | PC.NURSE ---
spoke with who states to admit the pt and he will scope him.
--- NOTE | 2024-11-29 08:42 | EXP.HP ---
History of Present Illness *Admission Date: 11/29/24 *Reason for visit:: nausea, weakness *History of present illness: Mr. Basurto is an 79-year-old male with history of heart failure, hypertension, hyperlipidemia. Underwent heart cath 10 days ago through the right groin. Has paroxysmal A-fib and prior AAA repair. On triple therapy with aspirin, Plavix, Eliquis. Presented to the ER today due to complaint of nausea without vomiting but this was followed by multiple bowel movements. Had some abdominal pain. That is improved at this time. Denies chest pain or shortness of breath. No loss of consciousness. Did not appreciate if his bowel movements were black or bloody. On arrival to the ER, patient is hemodynamically stable. Workup including labs showed white count of 14, hemoglobin of 10, down 2 points in 3 days. Creatinine 1.2 but BUN severely elevated 85. Strong concern for GI bleed. Medicine consulted for admission and further management [facility] Disclaimer: The information contained in this section may have been updated after the patient was seen, as this information can be updated by other users. Medical History Acute on chronic heart failure with preserved ejection fraction (HFpEF) PVCs (premature ventricular contractions) Paroxysmal atrial fibrillation NSTEMI (non-ST elevated myocardial infarction) Kyphosis Osteoarthritis BPH (benign prostatic hyperplasia) Osteopenia DDD (degenerative disc disease) Peripheral neuropathy Chronic pain syndrome Anxiety Obesity HTN (hypertension) HLD (hyperlipidemia) Aneurysm History of alcohol abuse History of substance abuse Hypertension Neuropathy Surgical History History of coronary artery bypass graft Hx of cervical spinal arthrodesis S/p total knee replacement, bilateral History of heart bypass surgery Family History Other Cancer Social History Smoking Status: Current every day smoker tobacco type: cigarettes packs per day: 1 alcohol intake: never current occupational status: other Travel in the last 8 weeks?: None household members: spouse housing: house current occupational exposures/hazards: No caffeine: Yes Have you lived/traveled outside US in past 30 days?: No Contact w/someone who lives/traveled outside US past 30 days?: No Exposure to someone with infectious disease in past 14 days?: No Do you have a fever (greater than 100.4 F or 38 C)?: No Have you tested positive for COVID-19?: No Exposed to someone with COVID-19 in past 14 days?: No Do you have a sore throat?: No Do you have a cough?: No Do you have any weakness?: Yes Do you have any diarrhea?: No Are you experiencing any unusual bleeding?: No Do you have any muscle aches/pain?: No Do you have any abdominal pain?: Yes Are you experiencing loss of taste or smell?: No Other Medical History Have you received the Flu Vaccine for this season: No Have you received the Pneumonia Vaccine: No Review of Systems Review of Systems Review of systems (narrative): 14 point review of systems performed, pertinent positives and negatives as per HPI Meds Home Medications and Allergies Home Medications ?Medication ?Instructions ?Recorded ?Confirmed ?Type duloxetine 60 mg capsule,delayed 60 mg PO DAILY 02/09/22 11/29/24 History release furosemide 40 mg tablet 40 mg PO DAILY 02/09/22 11/29/24 History pregabalin 200 mg capsule 200 mg PO BID 02/09/22 11/29/24 History albuterol sulfate 90 mcg/actuation 2 puff inhalation Q4HP PRN 11/16/24 11/29/24 History aerosol inhaler Shortness Of Breath fluticasone 250 mcg-salmeterol 50 1 inh inhalation BID 11/16/24 11/29/24 History mcg/dose blistr powdr for inhalation (Wixela Inhub) apixaban 5 mg tablet 5 mg PO BID #60 tabs 11/19/24 11/29/24 Rx aspirin 81 mg tablet,delayed 81 mg PO DAILY 30 days #30 tabs 11/19/24 11/29/24 Rx release clopidogrel 75 mg tablet 75 mg PO DAILY 30 days #30 tabs 11/19/24 11/29/24 Rx metoprolol succinate 25 mg 25 mg PO DAILY 30 days #30 tabs 11/19/24 11/29/24 Rx tablet,extended release 24 hr spironolactone 25 mg tablet 25 mg PO DAILY 30 days #30 tabs 11/19/24 11/29/24 Rx atorvastatin 80 mg tablet 80 mg PO HS 11/29/24 11/29/24 History New Prescriptions to Start Prescriptions: Allergies Allergy/AdvReac Type Severity Reaction Status Date / Time No Known Allergies Allergy Verified 01/14/23 10:45 Exam Data for Last 24 hours Vital signs and Labs for Last 24 Hours: Temp Pulse Resp BP Pulse Ox O2 Del Method 98.1 F 80 23 120/63 92 L Room Air 11/29/24 06:52 11/29/24 08:00 11/29/24 08:00 11/29/24 08:00 11/29/24 08:00 11/29/24 06:52 Laboratory Results - last 24 hr 11/29/24 06:49: WBC 14.1 H, RBC 3.91 L, Hgb 10.7 L, Hct 33.4 L, MCV 85.4, MCH 27.4, MCHC 32.0, RDW 18.8 H, Plt Count 206, MPV 11.9 H, Neut % (Auto) 67.0, Lymph % (Auto) 16.2, [place] % (Auto) 6.3, Eos % (Auto) 3.8, Baso % (Auto) 1.3, Neut # (Auto) 9.5 H, Lymph # (Auto) 2.3, [place] # (Auto) 0.9, Eos # (Auto) 0.5 H, Baso # (Auto) 0.2, Total Counted 100, Neutrophils % (Manual) 72, Lymphocytes % (Manual) 24, Monocytes % (Manual) 3, Eosinophils % (Manual) 1, Platelet Estimate Normal, Hypochromasia 1+, Sodium 145, Potassium 4.4, Chloride 106, Carbon Dioxide 28, Anion Gap 15.4 H, BUN 85 H D, Creatinine 1.20, Estimated Creat Clear 72, Estimated GFR 58 L, Est GFR ( Amer) 70, Glucose 98, Calcium 8.6, Total Bilirubin 0.2, AST 34, ALT 18, Alkaline Phosphatase 113, Total Protein 6.5, Albumin 3.6, Globulin 2.9, Albumin/Globulin Ratio 1.2, Lipase 79 11/29/24 07:42: Lactate 1.7 I & O for Last 24 hours: Intake & Output 11/26/24 11/27/24 11/28/24 11/29/24 23:59 23:59 23:59 23:59 Weight 104.326 kg Constitutional Constitutional: no acute distress, obese, chronically ill appearing and cooperative *Routine HEENT Exam Head: Present normocephalic Eye: Present EOMI and PERRL ENT: Present mucous membranes moist *Routine Neck Exam Neck: Present supple; Absent lymphadenopathy *Routine Respiratory Exam Respiratory: Present CTA bilaterally; Absent rhonchi, wheezes or crackles *Routine Cardiovascular Exam Cardiovascular: Present RRR *Routine Abdominal Exam Abdominal: Present soft and normoactive bowel sounds; Absent tenderness *Routine Rectal Exam Rectal:: deferred *Routine Genitalia Exam Genitalia:: deferred *Routine Extremities Exam Extremities: Present edema (Trace bilateral lower extremity); Absent cyanosis or clubbing *Routine Skin Exam Skin: Present intact and warm; Absent rash *Routine Neurological Exam Neurological: Present alert, oriented X3 and moving all extremities; Absent altered mental status Assessment and Plan *Assessment and plan (1) Acute upper GI bleed: Status: Acute Category: Medical Code(s): K92.2 - Gastrointestinal hemorrhage, unspecified (2) Chronic heart failure with preserved ejection fraction (HFpEF, >= 50%): Status: Acute Category: Medical Code(s): I50.32 - Chronic diastolic (congestive) heart failure (3) CAD (coronary artery disease): Status: Acute Qualifiers: Coronary Disease-Associated Artery/Lesion type: [place] artery [place] vs. transplanted heart: [place] heart Associated angina: without angina Qualified Code(s): I25.10 - Atherosclerotic heart disease of [place] coronary artery without angina pectoris Category: Medical Code(s): I25.10 - Atherosclerotic heart disease of [place] coronary artery without angina pectoris (4) HLD (hyperlipidemia): Status: Acute Qualifiers: Hyperlipidemia type: mixed hyperlipidemia Qualified Code(s): E78.2 - Mixed hyperlipidemia Category: Medical Code(s): E78.5 - Hyperlipidemia, unspecified (5) HTN (hypertension): Status: Acute Qualifiers: Hypertension type: primary hypertension Qualified Code(s): I10 - Essential (primary) hypertension Category: Medical Code(s): I10 - Essential (primary) hypertension (6) Acute blood loss anemia: Status: Acute Category: Medical Code(s): D62 - Acute posthemorrhagic anemia (7) Obesity (BMI 30.0-34.9): Status: Acute Category: Medical Code(s): E66.811 - Obesity, class 1 Plan José Basurto is a 79-year-old male who presented with upset stomach and multiple episodes of bowel movements this morning. Found to have worsening anemia. Highly suspicious for GI bleed. Elevated BUN disproportionate to creatinine. Discussed case with ER physician, request admission for further management of suspected upper GI bleed in patient who recently received stenting 10 days ago. I decided to admit for further care. Necessitating inpatient management. Have consulted surgery to evaluate for possible EGD. Cardiology consulted to assist with medication management given recent stenting and need for antiplatelet therapy as well as anticoagulation. Problems addressed as follows: Suspected upper GI bleed Acute blood loss anemia - Hemoglobin 2 days ago of 12.6, 10.7 on presentation. Multiple bowel movements this morning suspected secondary to cathartic effect of blood loss. On triple therapy with aspirin, Plavix, Eliquis. - BUN elevated 85, disproportionate to creatinine of 1.2, consistent with GI blood - Discussed case with surgery, planning on scoping in the morning. - Initiating on pantoprazole 80 mg bolus once. Continue 40 mg IV twice daily - Initiate misoprostol 200 mg every 6 hours due to component of NSAID and suspected irritation of stomach versus ulceration - Repeat H&H ordered for this afternoon. Transfusion threshold of hemoglobin of 9 given CAD, recent stenting, CHF. - Repeat CBC, CMP, magnesium ordered - Abdomen/pelvis CT per my review with no extravasation of contrast into the lumen of the gut. Relatively unremarkable CT #HFpEF, stable #History of CABG # CAD status post stenting 10 days ago #Hypertension #Hyperlipidemia ?Recent cath performed on 11/19. Received 3 stents to LAD. Currently on triple therapy with aspirin, Plavix, Eliquis. -Consulted cardiology, will hold aspirin at this time and Eliquis. Continue Plavix 75 mg daily -No chest pain. No concern for ACS ? ECHO 11/16/2024 reveals LVEF 50% with biatrial dilation. A1c 5.6, LDL 86 ?Continue lipid milligrams nightly Lasix 40 mg daily, metoprolol succinate 25 mg daily, and spironolactone 25 mg daily - Reevaluate anticoagulation at discharge pending findings on EGD #Anxiety depression ? Continue home duloxetine 60 mg. Full code DVT prophylaxis: On hold due to GI bleed Full liquid diet today, n.p.o. at midnight for possible scope in the
--- NOTE | 2024-11-29 09:00 | PC.NURSE ---
spoke with house regarding bed for admission
--- NOTE | 2024-11-29 09:22 | PC.NURSE ---
attempted to call report. per RN they will call me back
--- NOTE | 2024-11-29 09:32 | PC.NURSE ---
report called to Davy GODOY
--- NOTE | 2024-11-29 09:49 | PC.NURSE ---
Pt arrived to floor via wheelchair from ER @ 0266
--- NOTE | 2024-11-29 11:32 | EXP.SURG.CON ---
History of Present Illness *Admission Date: 11/29/24 *Reason for visit:: Melena, anemia *History of present illness: Patient is an 79-year-old male with history of congestive heart failure, coronary artery disease, hyperlipidemia, prior coronary artery bypass grafting, left bundle branch block, history of paroxysmal atrial fibrillation, previous abdominal aortic aneurysm repair, spinal stenosis, from [facility] with recent admission to this facility on 11/15/2024 after transfer from outside facility due to elevated troponins. He was treated for non-STEMI and underwent deployment of multiple stents. He was started on Eliquis, Plavix, and aspirin. Patient presented to the emergency department early this morning due to abdominal pain and multiple bowel movements. Evaluation revealed hemoglobin at 10.7 which was down from prior 12.6 48 hours prior along with an isolated BUN elevation to 85 with normal creatinine. He was found to have grossly melanic stool. He had CT angiogram of the abdomen and pelvis which revealed no evidence of central mesenteric arterial occlusive disease aside from normal ALOK occlusion. No evidence of bowel obstruction or bowel wall thickening. He was admitted for inpatient management and surgical consultation was obtained for GI blood loss. [facility] Disclaimer: The information contained in this section may have been updated after the patient was seen, as this information can be updated by other users. Medical History (Updated 11/29/24 @ 08:41 by Bret Belle MD) Acute on chronic heart failure with preserved ejection fraction (HFpEF) PVCs (premature ventricular contractions) Paroxysmal atrial fibrillation NSTEMI (non-ST elevated myocardial infarction) Kyphosis Osteoarthritis BPH (benign prostatic hyperplasia) Osteopenia DDD (degenerative disc disease) Peripheral neuropathy Chronic pain syndrome Anxiety Obesity HTN (hypertension) HLD (hyperlipidemia) Aneurysm History of alcohol abuse History of substance abuse Hypertension Neuropathy Surgical History (Updated 11/23/24 @ 00:00 by Gavin Silva) History of coronary artery bypass graft Hx of cervical spinal arthrodesis S/p total knee replacement, bilateral History of heart bypass surgery Family History Other Cancer Social History (Updated 11/15/24 @ 23:21 by Lauren Mccabe RN) Smoking Status: Current every day smoker tobacco type: cigarettes packs per day: 1 alcohol intake: never current occupational status: other Travel in the last 8 weeks?: None household members: spouse housing: house current occupational exposures/hazards: No caffeine: Yes Have you lived/traveled outside [place] in past 30 days?: No Contact w/someone who lives/traveled outside US past 30 days?: No Exposure to someone with infectious disease in past 14 days?: No Do you have a fever (greater than 100.4 F or 38 C)?: No Have you tested positive for COVID-19?: No Exposed to someone with COVID-19 in past 14 days?: No Do you have a sore throat?: No Do you have a cough?: No Do you have any weakness?: Yes Do you have any diarrhea?: No Are you experiencing any unusual bleeding?: No Do you have any muscle aches/pain?: No Do you have any abdominal pain?: Yes Are you experiencing loss of taste or smell?: No Meds Home Medications and Allergies Home Medications ?Medication ?Instructions ?Recorded ?Confirmed ?Type duloxetine 60 mg capsule,delayed 60 mg PO DAILY 02/09/22 11/29/24 History release furosemide 40 mg tablet 40 mg PO DAILY 02/09/22 11/29/24 History pregabalin 200 mg capsule 200 mg PO BID 02/09/22 11/29/24 History albuterol sulfate 90 mcg/actuation 2 puff inhalation Q4HP PRN 11/16/24 11/29/24 History aerosol inhaler Shortness Of Breath fluticasone 250 mcg-salmeterol 50 1 inh inhalation BID 11/16/24 11/29/24 History mcg/dose blistr powdr for inhalation ([employer] In[employer]) apixaban 5 mg tablet 5 mg PO BID #60 tabs 11/19/24 11/29/24 Rx aspirin 81 mg tablet,delayed 81 mg PO DAILY 30 days #30 tabs 11/19/24 11/29/24 Rx release clopidogrel 75 mg tablet 75 mg PO DAILY 30 days #30 tabs 11/19/24 11/29/24 Rx metoprolol succinate 25 mg 25 mg PO DAILY 30 days #30 tabs 11/19/24 11/29/24 Rx tablet,extended release 24 hr spironolactone 25 mg tablet 25 mg PO DAILY 30 days #30 tabs 11/19/24 11/29/24 Rx atorvastatin 80 mg tablet 80 mg PO HS 11/29/24 11/29/24 History New Prescriptions to Start Prescriptions: Allergies Allergy/AdvReac Type Severity Reaction Status Date / Time No Known Allergies Allergy Verified 01/14/23 10:45 Exam (Inpt) Vital signs and Labs for Last 24 Hours: Temp Pulse Resp BP Pulse Ox O2 Del Method 98.3 F 74 19 124/62 92 L Room Air 11/29/24 09:39 11/29/24 09:56 11/29/24 09:56 11/29/24 09:56 11/29/24 09:00 11/29/24 09:39 Laboratory Results - last 24 hr 11/29/24 06:49: WBC 14.1 H, RBC 3.91 L, Hgb 10.7 L, Hct 33.4 L, MCV 85.4, MCH 27.4, MCHC 32.0, RDW 18.8 H, Plt Count 206, MPV 11.9 H, Neut % (Auto) 67.0, Lymph % (Auto) 16.2, [place] % (Auto) 6.3, Eos % (Auto) 3.8, Baso % (Auto) 1.3, Neut # (Auto) 9.5 H, Lymph # (Auto) 2.3, [place] # (Auto) 0.9, Eos # (Auto) 0.5 H, Baso # (Auto) 0.2, Total Counted 100, Neutrophils % (Manual) 72, Lymphocytes % (Manual) 24, Monocytes % (Manual) 3, Eosinophils % (Manual) 1, Platelet Estimate Normal, Hypochromasia 1+, Sodium 145, Potassium 4.4, Chloride 106, Carbon Dioxide 28, Anion Gap 15.4 H, BUN 85 H D, Creatinine 1.20, Estimated Creat Clear 72, Estimated GFR 58 L, Est GFR ( Amer) 70, Glucose 98, Calcium 8.6, Total Bilirubin 0.2, AST 34, ALT 18, Alkaline Phosphatase 113, Total Protein 6.5, Albumin 3.6, Globulin 2.9, Albumin/Globulin Ratio 1.2, Lipase 79 11/29/24 07:42: Lactate 1.7 I & O for Labs for Last 24 Hours: Intake & Output 11/26/24 11/27/24 11/28/24 11/29/24 11:59 11:59 11:59 11:59 Weight 230 lb Constitutional: no acute distress GI: Present soft; Absent tenderness Rectal (male): Present deferred Results Labs 11/29/24 06:49 11/29/24 06:49 Labs: Laboratory Results - last 24 hr 11/29/24 06:49: WBC 14.1 H, RBC 3.91 L, Hgb 10.7 L, Hct 33.4 L, MCV 85.4, MCH 27.4, MCHC 32.0, RDW 18.8 H, Plt Count 206, MPV 11.9 H, Neut % (Auto) 67.0, Lymph % (Auto) 16.2, [place] % (Auto) 6.3, Eos % (Auto) 3.8, Baso % (Auto) 1.3, Neut # (Auto) 9.5 H, Lymph # (Auto) 2.3, [place] # (Auto) 0.9, Eos # (Auto) 0.5 H, Baso # (Auto) 0.2, Total Counted 100, Neutrophils % (Manual) 72, Lymphocytes % (Manual) 24, Monocytes % (Manual) 3, Eosinophils % (Manual) 1, Platelet Estimate Normal, Hypochromasia 1+, Sodium 145, Potassium 4.4, Chloride 106, Carbon Dioxide 28, Anion Gap 15.4 H, BUN 85 H D, Creatinine 1.20, Estimated Creat Clear 72, Estimated GFR 58 L, Est GFR ( Amer) 70, Glucose 98, Calcium 8.6, Total Bilirubin 0.2, AST 34, ALT 18, Alkaline Phosphatase 113, Total Protein 6.5, Albumin 3.6, Globulin 2.9, Albumin/Globulin Ratio 1.2, Lipase 79 11/29/24 07:42: Lactate 1.7 Assessment and Plan *Assessment and plan (1) Acute upper GI bleed: Status: Acute Category: Medical Code(s): K92.2 - Gastrointestinal hemorrhage, unspecified (2) Melena: Status: Acute Category: Medical Code(s): K92.1 - Melena Plan Patient has evidence of mild anemia with GI blood loss. At this time no evidence of any appreciable acute bleeding. Plan will be for medical management. Understandably with his recent stenting after non-STEMI he needs to stay on dual antiplatelet therapy. Plan will be for tentative EGD tomorrow for diagnostic and potentially therapeutic purposes if indicated.
[2024-11-29] MEDS: PANTOPRAZOLE SODIUM 80 MG in 0.9 % SODIUM CHLORIDE 100 ML 100 MG IV (13:22)
[2024-11-29] MEDS: ASPIRIN EC 81MG TABLET 81 MG PO (13:24)
[2024-11-29] MEDS: CLOPIDOGREL 75MG TAB 75 MG PO (13:25)
[2024-11-29] MEDS: miSOPROStoL 200 MCG TABLET PO ×2 (13:28→19:45)
--- NOTE | 2024-11-29 15:03 | EXP.CARD.CON ---
History of Present Illness History of Present Illness Consult date: 11/29/24 Requesting physician: Frank Kam Consult reason: known to you Chief complaint: GI bleed, recent coronary stenting, A. fib, HFpEF Additional Medical History:: 1. HFpEF A. Echo, 11/2024, LVEF 50%, mild RV dilation with normal RV function. Mild biatrial dilation. Mild AI/MR/PI. B. Exacerbation, 11/16/2024 2. CAD with history of CABG A. Cardiac catheterization, 11/19/2024, occluded GAMBLE to LAD, patent SVG to circumflex, patent SVG to RCA. Lithotripsy with 3 LESA placed to ostial proximal and mid LAD. Left subclavian artery has a 30 mm trans stenotic ostial stenosis/gradient. LVEDP 20 mmHg. 3. Atrial fibrillation A. Started Eliquis therapy 11/2024 4. History of CVA A. Early 2024 5. History of medication noncompliance 6. Frequent ventricular ectopy noted during hospitalization 11/2024 A. Beta-juani therapy 7. Hypertension 8. Hyperlipidemia A. Statin therapy 9. History of anxiety/depression History of present illness: 79-year-old white male recently discharged from [facility] after treatment of HFpEF, non-STEMI and coronary stenting presented with nausea and multiple bowel movements. ER evaluation revealed melanotic stool with decrease in hemoglobin from 12.6-10.7 over the period of 2 days with isolated elevated BUN to 85 with normal creatinine. Patient was admitted for further GI evaluation. Due to recent coronary stenting cardiology consulted for guidance on DAPT therapy in the setting of oral anticoagulation (Eliquis) for his A-fib. At this time we will discontinue aspirin. Hold Eliquis. Continue Plavix. Patient denies any chest pain, pressure or tightness and in fact states his previous chest pain resolved with coronary stenting earlier this month. [facility] Disclaimer: The information contained in this section may have been updated after the patient was seen, as this information can be updated by other users. Medical History (Updated 11/29/24 @ 15:35 by Frank Kam MD) Acute on chronic heart failure with preserved ejection fraction (HFpEF) PVCs (premature ventricular contractions) Paroxysmal atrial fibrillation NSTEMI (non-ST elevated myocardial infarction) Kyphosis Osteoarthritis BPH (benign prostatic hyperplasia) Osteopenia DDD (degenerative disc disease) Peripheral neuropathy Chronic pain syndrome Anxiety Obesity HTN (hypertension) HLD (hyperlipidemia) Aneurysm History of alcohol abuse History of substance abuse Hypertension Neuropathy Surgical History (Updated 11/23/24 @ 00:00 by Gavin Silva) History of coronary artery bypass graft Hx of cervical spinal arthrodesis S/p total knee replacement, bilateral History of heart bypass surgery Family History Other Cancer Social History (Updated 11/15/24 @ 23:21 by Lauren Mccabe RN) Smoking Status: Current every day smoker tobacco type: cigarettes packs per day: 1 alcohol intake: never current occupational status: other Travel in the last 8 weeks?: None household members: spouse housing: house current occupational exposures/hazards: No caffeine: Yes Have you lived/traveled outside [place] in past 30 days?: No Contact w/someone who lives/traveled outside [place] past 30 days?: No Exposure to someone with infectious disease in past 14 days?: No Do you have a fever (greater than 100.4 F or 38 C)?: No Have you tested positive for COVID-19?: No Exposed to someone with COVID-19 in past 14 days?: No Do you have a sore throat?: No Do you have a cough?: No Do you have any weakness?: Yes Do you have any diarrhea?: No Are you experiencing any unusual bleeding?: No Do you have any muscle aches/pain?: No Do you have any abdominal pain?: Yes Are you experiencing loss of taste or smell?: No Review of Systems Review of Systems Review of systems:: pertinent systems reviewed and negative unless documented below *Cardiovascular Cardiovascular: Denies chest pain and Reports dyspnea on exertion *Respiratory Respiratory: Reports dyspnea on exertion *Gastrointestinal Gastrointestinal: Reports diarrhea, Reports melena and Denies vomiting Exam Data for Last 24 hours Vital signs and Labs for Last 24 Hours: Temp Pulse Resp BP Pulse Ox O2 Del Method 98.3 F 74 19 124/62 92 L Room Air 11/29/24 09:39 11/29/24 09:56 11/29/24 09:56 11/29/24 09:56 11/29/24 09:00 11/29/24 09:39 Laboratory Results - last 24 hr 11/29/24 06:49: WBC 14.1 H, RBC 3.91 L, Hgb 10.7 L, Hct 33.4 L, MCV 85.4, MCH 27.4, MCHC 32.0, RDW 18.8 H, Plt Count 206, MPV 11.9 H, Neut % (Auto) 67.0, Lymph % (Auto) 16.2, [place] % (Auto) 6.3, Eos % (Auto) 3.8, Baso % (Auto) 1.3, Neut # (Auto) 9.5 H, Lymph # (Auto) 2.3, [place] # (Auto) 0.9, Eos # (Auto) 0.5 H, Baso # (Auto) 0.2, Total Counted 100, Neutrophils % (Manual) 72, Lymphocytes % (Manual) 24, Monocytes % (Manual) 3, Eosinophils % (Manual) 1, Platelet Estimate Normal, Hypochromasia 1+, Sodium 145, Potassium 4.4, Chloride 106, Carbon Dioxide 28, Anion Gap 15.4 H, BUN 85 H D, Creatinine 1.20, Estimated Creat Clear 72, Estimated GFR 58 L, Est GFR ( Amer) 70, Glucose 98, Calcium 8.6, Total Bilirubin 0.2, AST 34, ALT 18, Alkaline Phosphatase 113, Total Protein 6.5, Albumin 3.6, Globulin 2.9, Albumin/Globulin Ratio 1.2, Lipase 79 11/29/24 07:42: Lactate 1.7 I & O for Last 24 hours: Intake & Output 11/27/24 11/28/24 11/29/24 11/30/24 11:59 11:59 11:59 11:59 Intake Total 400 / 400 Output Total 600 / 600 Balance -200 / -200 Weight 230 lb Constitutional Constitutional: no acute distress Comments: Alert and oriented with ability to answer questions appropriately. *Routine Respiratory Exam Respiratory: Present CTA bilaterally; Absent rhonchi or wheezes *Routine Cardiovascular Exam Cardiovascular: Present irregularly irregular; Absent murmur, gallop or rubs *Routine Extremities Exam Extremities: Present edema *Routine Neurological Exam Neurological: Present alert, oriented X3 and CN II-XII intact Meds Home Medications and Allergies Home Medications ?Medication ?Instructions ?Recorded ?Confirmed ?Type duloxetine 60 mg capsule,delayed 60 mg PO DAILY 02/09/22 11/29/24 History release furosemide 40 mg tablet 40 mg PO DAILY 02/09/22 11/29/24 History pregabalin 200 mg capsule 200 mg PO BID 02/09/22 11/29/24 History albuterol sulfate 90 mcg/actuation 2 puff inhalation Q4HP PRN 11/16/24 11/29/24 History aerosol inhaler Shortness Of Breath fluticasone 250 mcg-salmeterol 50 1 inh inhalation BID 11/16/24 11/29/24 History mcg/dose blistr powdr for inhalation ([facility]ix[facility] Inhub) apixaban 5 mg tablet 5 mg PO BID #60 tabs 11/19/24 11/29/24 Rx aspirin 81 mg tablet,delayed 81 mg PO DAILY 30 days #30 tabs 11/19/24 11/29/24 Rx release clopidogrel 75 mg tablet 75 mg PO DAILY 30 days #30 tabs 11/19/24 11/29/24 Rx metoprolol succinate 25 mg 25 mg PO DAILY 30 days #30 tabs 11/19/24 11/29/24 Rx tablet,extended release 24 hr spironolactone 25 mg tablet 25 mg PO DAILY 30 days #30 tabs 11/19/24 11/29/24 Rx atorvastatin 80 mg tablet 80 mg PO HS 11/29/24 11/29/24 History New Prescriptions to Start Prescriptions: Allergies Allergy/AdvReac Type Severity Reaction Status Date / Time No Known Allergies Allergy Verified 01/14/23 10:45 Assessment and Plan *Assessment and plan (1) Melena: Status: Acute Category: Medical Code(s): K92.1 - Melena (2) CAD (coronary artery disease): Status: Acute Qualifiers: Coronary Disease-Associated Artery/Lesion type: [place] artery [place] vs. transplanted heart: [place] heart Associated angina: without angina Qualified Code(s): I25.10 - Atherosclerotic heart disease of [place] coronary artery without angina pectoris Category: Medical Code(s): I25.10 - Atherosclerotic heart disease of [place] coronary artery without angina pectoris (3) HLD (hyperlipidemia): Status: Acute Qualifiers: Hyperlipidemia type: mixed hyperlipidemia Qualified Code(s): E78.2 - Mixed hyperlipidemia Category: Medical Code(s): E78.5 - Hyperlipidemia, unspecified (4) HTN (hypertension): Status: Acute Qualifiers: Hypertension type: primary hypertension Qualified Code(s): I10 - Essential (primary) hypertension Category: Medical Code(s): I10 - Essential (primary) hypertension (5) History of coronary artery bypass graft: Status: Acute Category: Surgical Code(s): Z95.1 - Presence of aortocoronary bypass graft (6) Chronic heart failure with preserved ejection fraction (HFpEF, >= 50%): Status: Acute Category: Medical Code(s): I50.32 - Chronic diastolic (congestive) heart failure (7) Acute on chronic heart failure with preserved ejection fraction (HFpEF): Status: Acute Category: Medical Code(s): I50.33 - Acute on chronic diastolic (congestive) heart failure Plan 1. Nausea, abdominal pain with multiple BMs with subsequent melanotic stool -Plan for EGD in a.m. -Monitor hemoglobin with threshold of 9 for consideration of transfusion -On Cytotec and PPI therapy 2. CAD, prior bypass with recent LAD stenting, 11/19/2024 -Discontinue aspirin and continue Plavix therapy -On metoprolol and statin therapy -GDMT not implemented due to prior hypotension 3. History of hypertension, well-controlled 4. HFpEF -Continue spironolactone and use Lasix as needed 5. Hyperlipidemia, continue statin therapy 6. History of CVA 7. History of A-fib with CHADS-VASC score of 7 (9.6% chance of CVA per year) with HAS BLED score of 4 (8.9% risk of recurrent bleed) -Continue rate control with metoprolol -Holding Eliquis due to GI bleed. We should definitely consider restarting in near future (1-2 wks) due to prior CVA and Consider referral for Watchman device as outpatient. No plans for cardiac testing. Restart spironolactone and use lasix PRN
[2024-11-29 16:57] LABS: Hematocrit 26.8 % (42.0-52.0)
[2024-11-29 17:03] LABS: Hemoglobin 8.7 g/dL (14.1-18.0)
[2024-11-29] MEDS: FLUTICASONE/SALMETEROL 250/50MCG DISKUS 1 PUFF IH (18:12)
--- NOTE | 2024-11-29 18:55 | ECG_ITS ---
APPROVED REPORT Exam: Resting ECG HR:75 bpm ECG Measurements Heart Rate 75 AXES QRSd 142 QRS -51 QT 396 T 101 QTc 425 Conclusion ATRIAL FIBRILLATION WITH ABERRANT CONDUCTION OR VENTRICULAR PREMATURE COMPLEXES LEFT AXIS DEVIATION [QRS AXIS < -30] LEFT BUNDLE BRANCH BLOCK [120+ ms QRS DURATION, 80+ ms Q/S IN V1/V2, 85+ ms R IN I/aVL/V5/V6] ABNORMAL ECG UNCONFIRMED REPORT Electronically signed by : Alejo Gordillo MD 12/01/2024 07:52:03
--- NOTE | 2024-11-29 20:57 | PC.NURSE ---
Patient left for with staff for ICU at 20:56.
--- NOTE | 2024-11-29 21:19 | PC.NURSE ---
Pt arrived to ICU unit via bed from [facility] @20:59
[2024-11-29] MEDS: PANTOPRAZOLE 40MG VIAL 40 MG IV (21:23)
[2024-11-29] MEDS: 0.9 % SODIUM CHLORIDE 250 ML 100 ML IV (21:32)
[2024-11-29] MEDS: ATORVASTATIN 40MG TABLET 80 MG PO (22:34)
[2024-11-30] VITALS (35 sets, daily range): BP systolic 93–165; BP diastolic 45–97; PULSE 66–85; RESP 16–27; TEMP 36.4–36.9; O2SAT 91–99; BMI 34.9; BMI 34.7
[2024-11-30] MEDS: 0.9 % SODIUM CHLORIDE 250 ML 100 ML IV (00:24)
[2024-11-30] MEDS: miSOPROStoL 200 MCG TABLET PO (01:23)
--- NOTE | 2024-11-30 02:30 | PC.NURSE ---
Pt called out to this RN c/o SOA. Pt sat 96% on RA on assessment. RR 24. Auscultated pt lungs. Pt noted to have fine crackles in his RLL. 2L nc applied to pt for comfort. Blood titrated down to 100ml/hr. Hospitalist notified-states she will order one time dose lasix.
[2024-11-30] MEDS: FUROSEMIDE 40MG/4ML VIAL 40 MG IV (02:41)
[2024-11-30 03:35] LABS: Hematocrit 31.7 % (42.0-52.0)
[2024-11-30 04:03] LABS: Hemoglobin 10.3 g/dL (14.1-18.0)
[2024-11-30] MEDS: ACETAMINOPHEN 325MG TAB 650 MG PO (04:55)
[2024-11-30] MEDS: ONDANSETRON 4MG/2ML VIAL 4 MG IV ×2 (05:08→17:40)
--- NOTE | 2024-11-30 05:19 | PC.NURSE ---
Notified Angel Luis Oviedo pt is complaining of felling overall not well. Pt will not give details as to symptoms he is feeling to make him feel unwell. Angel Luis Oviedo states she will order tylenol for pt PRN
--- NOTE | 2024-11-30 05:23 | ECG_ITS ---
APPROVED REPORT Exam: Resting ECG HR:80 bpm ECG Measurements Heart Rate 80 AXES QRSd 147 QRS -46 QT 408 T 108 QTc 445 Conclusion ATRIAL FIBRILLATION WITH ABERRANT CONDUCTION OR VENTRICULAR PREMATURE COMPLEXES LEFT AXIS DEVIATION [QRS AXIS < -30] LEFT BUNDLE BRANCH BLOCK [120+ ms QRS DURATION, 80+ ms Q/S IN V1/V2, 85+ ms R IN I/aVL/V5/V6] ABNORMAL ECG UNCONFIRMED REPORT Electronically signed by : Alejo Gordillo MD 12/01/2024 07:51:55
--- NOTE | 2024-11-30 05:23 | PC.NURSE ---
Cardiac rhythm appears different from earlier in shift. EKG ordered. RT notified.
[2024-11-30 06:08] LABS: Basophils # 0.1 K/mm3 (0-0.2); Basophils % 0.7 % (0.1-2.0); Eosinophils # 0.4 Kmm3 (0.0-0.4); Eosinophils % 2.4 % (0.1-12.0); Hematocrit 32.4 % (42.0-52.0); Hemoglobin 10.2 g/dL (14.1-18.0); Immature Granulocytes # 0.35 10^3uL; Immature Granulocytes % 2.4 %; Lymphocytes # 1.2 K/mm3 (0.7-4.5); Lymphocytes % 8.2 % (10-50); Mean Corpuscular HGB Conc 31.5 g/dL (31.8-35.4); Mean Corpuscular Hemoglobin 27.1 pg (27.0-31.2); Mean Corpuscular Volume 85.9 fl (80-94); Mean Platelet Volume 11.6 fl (7.4-10.4); Monocytes # 0.9 K/mm3 (0.1-1.0); Monocytes % 6.1 % (1.7-9.3); Neutrophils # 11.8 K/mm3 (1.8-7.8); Neutrophils % 80.2 % (37.0-80.0); Nucleated Red Blood Cells # 0.05 10^3/uL; Nucleated Red Blood Cells % 0.3 %; Platelet Count 149 K/mm3 (142-424); Red Blood Count 3.77 M/mm3 (4.60-6.20); Red Cell Distribution Width 17.6 % (11.5-17.5); Red Cell Distribution Width-SD 53.6 fL; White Blood Count 14.7 K/mm3 (4.8-10.8)
[2024-11-30 06:17] LABS: Albumin Level 3.2 g/dl (3.5-5.0); Chloride 109 mmol/L (98-107); Potassium 3.8 mmoL/L (3.5-5.1); Sodium 145 mmol/L (136-145)
[2024-11-30 06:20] LABS: Alanine Aminotransferase 15 U/L (12-78); Albumin/Globulin Ratio 1.2 (1.1-1.8); Alkaline Phosphatase 91 U/L (38-126); Anion Gap 13.8 mEq/L (5-15); Aspartate Amino Transferase 28 U/L (17-59); Bilirubin,Total 0.6 mg/dl (0.2-1.3); Blood Urea Nitrogen 68 mg/dl (9-20); Calcium 8.5 mg/dl (8.4-10.2); Carbon Dioxide 26 mmol/L (22.0-30.0); Creatinine Clearance Estimated 79 mL/min (50-200); Estimated Glomerular Filt Rate 64 ml/min (>60); GFR (African American) 78 ML/MIN (>60); Globulin 2.7 g/dL (1.3-3.2); Glucose 125 mg/dl (74-100); Magnesium 1.9 mg/dl (1.6-2.3); Total Protein,Serum 5.9 g/dl (6.3-8.2)
--- NOTE | 2024-11-30 06:37 | EXP.SURG.PN ---
Subjective Narrative: Patient transferred to ICU for closer monitoring yesterday after he developed some abdominal symptomatology and increasing confusion. Noted to have hemoglobin decreased to 8.7. Received 2 units transfusion with posttransfusion hemoglobin of 10.3. Exam Data for Last 24 hours Vital signs and Labs for Last 24 Hours: Temp Pulse Resp BP Pulse Ox O2 Del Method O2 Flow Rate 98.4 F 72 18 128/64 97 Nasal Cannula 2 11/30/24 04:00 11/30/24 06:00 11/30/24 06:00 11/30/24 06:00 11/30/24 06:00 11/30/24 04:56 11/30/24 04:56 Laboratory Results - last 24 hr 11/29/24 06:45: Blood Type Confirm B Positive 11/29/24 06:49: WBC 14.1 H, RBC 3.91 L, Hgb 10.7 L, Hct 33.4 L, MCV 85.4, MCH 27.4, MCHC 32.0, RDW 18.8 H, Plt Count 206, MPV 11.9 H, Neut % (Auto) 67.0, Lymph % (Auto) 16.2, [place] % (Auto) 6.3, Eos % (Auto) 3.8, Baso % (Auto) 1.3, Neut # (Auto) 9.5 H, Lymph # (Auto) 2.3, [place] # (Auto) 0.9, Eos # (Auto) 0.5 H, Baso # (Auto) 0.2, Total Counted 100, Neutrophils % (Manual) 72, Lymphocytes % (Manual) 24, Monocytes % (Manual) 3, Eosinophils % (Manual) 1, Platelet Estimate Normal, Hypochromasia 1+, Sodium 145, Potassium 4.4, Chloride 106, Carbon Dioxide 28, Anion Gap 15.4 H, BUN 85 H D, Creatinine 1.20, Estimated Creat Clear 72, Estimated GFR 58 L, Est GFR ( Amer) 70, Glucose 98, Calcium 8.6, Total Bilirubin 0.2, AST 34, ALT 18, Alkaline Phosphatase 113, Total Protein 6.5, Albumin 3.6, Globulin 2.9, Albumin/Globulin Ratio 1.2, Lipase 79 11/29/24 07:42: Lactate 1.7 11/29/24 16:48: Hgb 8.7 L D, Hct 26.8 L 11/29/24 19:00: Blood Type B Positive, Antibody Screen Negative, Crossmatch (AHG) See Detail 11/30/24 03:04: Hgb 10.3 L D, Hct 31.7 L 11/30/24 05:33: WBC 14.7 H, RBC 3.77 L, Hgb 10.2 L, Hct 32.4 L, MCV 85.9, MCH 27.1, MCHC 31.5 L, RDW 17.6 H, Plt Count 149 D, MPV 11.6 H, Neut % (Auto) 80.2 H, Lymph % (Auto) 8.2 L, [place] % (Auto) 6.1, Eos % (Auto) 2.4, Baso % (Auto) 0.7, Neut # (Auto) 11.8 H, Lymph # (Auto) 1.2, [place] # (Auto) 0.9, Eos # (Auto) 0.4, Baso # (Auto) 0.1, Sodium 145, Potassium 3.8, Chloride 109 H, Carbon Dioxide 26, Anion Gap 13.8, BUN 68 H, Creatinine 1.10, Estimated Creat Clear 79, Estimated GFR 64, Est GFR ( Amer) 78, Glucose 125 H D, Calcium 8.5, Magnesium 1.9, Total Bilirubin 0.6, AST 28, ALT 15, Alkaline Phosphatase 91, Total Protein 5.9 L, Albumin 3.2 L D, Globulin 2.7, Albumin/Globulin Ratio 1.2 I & O for Last 24 hours: Intake & Output 11/27/24 11/28/24 11/29/24 11/30/24 11:59 11:59 11:59 11:59 Intake Total 1500 / 1500 Output Total 1999 / 1999 Balance -500 / -500 Weight 230 lb 231 lb 0.006 oz Progress Note: A&P Assessment and plan (1) Melena: Status: Acute Assessment and plan: Tentative EGD this morning. (2) CAD (coronary artery disease): Status: Acute (3) HLD (hyperlipidemia): Status: Acute (4) HTN (hypertension): Status: Acute (5) History of coronary artery bypass graft: Status: Acute (6) Chronic heart failure with preserved ejection fraction (HFpEF, >= 50%): Status: Acute (7) Acute on chronic heart failure with preserved ejection fraction (HFpEF): Status: Acute (8) Acute upper GI bleed: Status: Acute (9) Acute blood loss anemia: Status: Acute (10) Obesity (BMI 30.0-34.9): Status: Acute
--- NOTE | 2024-11-30 06:39 | PC.NURSE ---
Pt alert and oriented x4 this AM. Some confusion noted throughout night. Pt has made multiple complaints to staff that he does not feel good. When pt asked what is bothering him, he states he does not know. Pt has been given 2x doses of Zofran PRN for nausea and 1x dose tylenol PRN for generalized pain. Pt continues to be on 2L nc this AM for pt comfort. O2 sat upper 90s. Pt has been afib/bbb with frequent PVCs noted on telemetry. Pt received 2 units of PRBC during shift. Pt did state he felt short of breath while 2nd unit was finishing. One time dose lasix was administered. Pt has had a large amount of urine output since receiving lasix. 1000ml measured, 2 large unmeasured voids due to purewick malfunction. Call light within reach.
--- NOTE | 2024-11-30 08:04 | P.PN_ITS ---
Subjective *Date: 11/30/24 *Time: 21:32 Interval history: Patient was again diaphoretic this morning and just not feeling well. Complaining of nausea. Concerned this may be a side effect from the misoprostol. Seems to get worse after taking medication. N.p.o. awaiting scope this morning. Denies any bright red blood per rectum or hematemesis overnight. On 2 L oxygen. Medical Exam Vital signs and Labs for Last 24 Hours: Vital Signs Temp Pulse Pulse Resp BP BP Pulse Ox 11/30/24 06:47 11/30/24 06:00 72 18 97 11/30/24 06:00 128/64 11/30/24 04:56 11/30/24 04:13 71 11/30/24 04:00 98.4 F 74 27 H 133/60 94 L 11/30/24 03:46 98.2 F 76 17 151/97 H 98 11/30/24 02:57 11/30/24 02:46 98.1 F 67 18 140/63 99 11/30/24 02:15 72 94 L 11/30/24 01:50 98.1 F 71 19 119/82 91 L 11/30/24 01:35 97.6 F 68 18 126/55 L 94 L 11/30/24 01:20 97.7 F 66 17 127/73 98 11/30/24 01:05 97.8 F 76 20 137/72 96 11/30/24 01:00 97.7 F 70 20 138/67 97 11/30/24 00:55 98.0 F 77 22 117/65 98 11/30/24 00:53 11/30/24 00:50 97.6 F 71 19 142/65 H 96 11/30/24 00:45 97.8 F 73 21 123/71 93 L 11/30/24 00:19 97.6 F 85 19 132/73 98 11/30/24 00:10 97.9 F 70 16 165/81 H 95 11/30/24 00:08 77 11/29/24 23:10 98.1 F 68 17 136/66 92 L 11/29/24 22:55 97.8 F 68 18 141/56 H 92 L 11/29/24 22:40 98.4 F 76 20 129/69 91 L 11/29/24 22:30 11/29/24 22:25 98.6 F 79 22 137/75 93 L 11/29/24 22:20 98.7 F 70 20 126/72 94 L 11/29/24 22:15 98.5 F 72 19 141/64 H 93 L 11/29/24 22:13 98.4 F 74 21 134/55 L 93 L 11/29/24 22:01 76 20 128/69 91 L 11/29/24 22:01 98.2 F 77 19 128/69 91 L 11/29/24 21:45 77 94 L 11/29/24 21:21 98.1 F 78 19 156/83 H 96 11/29/24 21:20 78 11/29/24 21:00 11/29/24 18:59 11/29/24 09:56 74 19 124/62 11/29/24 09:39 98.3 F 70 20 112/63 11/29/24 09:19 11/29/24 09:00 17 124/70 92 L 11/29/24 08:30 75 18 121/69 91 L O2 Del Method O2 Flow Rate 11/30/24 06:47 Nasal Cannula 2 11/30/24 06:00 11/30/24 06:00 11/30/24 04:56 Nasal Cannula 2 11/30/24 04:13 11/30/24 04:00 Nasal Cannula 2 11/30/24 03:46 11/30/24 02:57 Nasal Cannula 2 11/30/24 02:46 11/30/24 02:15 Room Air 11/30/24 01:50 11/30/24 01:35 11/30/24 01:20 11/30/24 01:05 11/30/24 01:00 11/30/24 00:55 11/30/24 00:53 Room Air 11/30/24 00:50 11/30/24 00:45 11/30/24 00:19 11/30/24 00:10 11/30/24 00:08 11/29/24 23:10 11/29/24 22:55 11/29/24 22:40 11/29/24 22:30 Room Air 11/29/24 22:25 11/29/24 22:20 11/29/24 22:15 11/29/24 22:13 11/29/24 22:01 Room Air 11/29/24 22:01 11/29/24 21:45 Room Air 11/29/24 21:21 Room Air 11/29/24 21:20 11/29/24 21:00 Room Air 11/29/24 18:59 Room Air 11/29/24 09:56 11/29/24 09:39 Room Air 11/29/24 09:19 Room Air 11/29/24 09:00 11/29/24 08:30 Intake and Output 11/29/24 11/30/24 11/30/24 23:59 07:59 15:59 Intake Total 600 / 1000 500 / 500 Output Total 400 / 1000 1450 / 1450 Balance 200 / 0 -950 / -950 Intake: Intake, Oral Amount 600 / 1000 Intake (Blood Product) Amt 0 / 0 500 / 500 Red Blood Cells Unit 0 / 0 250 / 250 [id number] Red Blood Cells Unit 250 / 250 [id number] Output: Output, Urine Amount 400 / 1000 1450 / 1450 Other: Number of Unmeasured Voids 0 0 Weight 104.78 kg 104.78 kg Patient Weight 11/30/24 23:59 Weight 104.78 kg Laboratory Results - last 24 hr 11/29/24 06:45: Blood Type Confirm B Positive 11/29/24 06:49: Total Counted 100, Neutrophils % (Manual) 72, Lymphocytes % (Manual) 24, Monocytes % (Manual) 3, Eosinophils % (Manual) 1, Platelet Estimate Normal, Hypochromasia 1+ 11/29/24 07:42: Lactate 1.7 11/29/24 16:48: Hgb 8.7 L D, Hct 26.8 L 11/29/24 19:00: Blood Type B Positive, Antibody Screen Negative, Crossmatch (AHG) See Detail 11/30/24 03:04: Hgb 10.3 L D, Hct 31.7 L 11/30/24 05:33: WBC 14.7 H, RBC 3.77 L, Hgb 10.2 L, Hct 32.4 L, MCV 85.9, MCH 27.1, MCHC 31.5 L, RDW 17.6 H, Plt Count 149 D, MPV 11.6 H, Neut % (Auto) 80.2 H, Lymph % (Auto) 8.2 L, [place] % (Auto) 6.1, Eos % (Auto) 2.4, Baso % (Auto) 0.7, Neut # (Auto) 11.8 H, Lymph # (Auto) 1.2, [place] # (Auto) 0.9, Eos # (Auto) 0.4, Baso # (Auto) 0.1, Sodium 145, Potassium 3.8, Chloride 109 H, Carbon Dioxide 26, Anion Gap 13.8, BUN 68 H, Creatinine 1.10, Estimated Creat Clear 79, Estimated GFR 64, Est GFR ( Amer) 78, Glucose 125 H D, Calcium 8.5, Magnesium 1.9, Total Bilirubin 0.6, AST 28, ALT 15, Alkaline Phosphatase 91, Total Protein 5.9 L, Albumin 3.2 L D, Globulin 2.7, Albumin/Globulin Ratio 1.2 I & O for Labs for Last 24 Hours: Intake & Output 11/27/24 11/28/24 11/29/24 11/30/24 23:59 23:59 23:59 23:59 Intake Total 1000 / 1000 500 / 500 Output Total 1000 / 1000 1450 / 1450 Balance 0 / 0 -950 / -950 Weight 104.78 kg 104.78 kg Constitutional: Present mild distress, obese, chronically ill appearing and cooperative Head: Present atraumatic and normocephalic ENT: Present normal exam Respiratory: Present normal respiratory effort; Absent rhonchi, wheezes or crackles Comment:: Irregular rhythm, pacemaker in left chest, well-healed sternotomy scar GI: Present soft, tenderness (Mild epigastric) and normal bowel sounds; Absent distention Extremities: Present normal inspection and full ROM Skin: Present intact; Absent erythema Neuro: Present Grossly Intact, alert, awake and moves all extremities Comment:: Baseline mentation. She is oriented. Assessment and Plan *Assessment and plan (1) Acute upper GI bleed: Status: Acute Category: Medical Code(s): K92.2 - Gastrointestinal hemorrhage, unspecified (2) Chronic heart failure with preserved ejection fraction (HFpEF, >= 50%): Status: Acute Category: Medical Code(s): I50.32 - Chronic diastolic (congestive) heart failure (3) CAD (coronary artery disease): Status: Acute Qualifiers: Coronary Disease-Associated Artery/Lesion type: [place] artery [place] vs. transplanted heart: [place] heart Associated angina: without angina Qualified Code(s): I25.10 - Atherosclerotic heart disease of [place] coronary artery without angina pectoris Category: Medical Code(s): I25.10 - Atherosclerotic heart disease of [place] coronary artery without angina pectoris (4) HLD (hyperlipidemia): Status: Acute Qualifiers: Hyperlipidemia type: mixed hyperlipidemia Qualified Code(s): E78.2 - Mixed hyperlipidemia Category: Medical Code(s): E78.5 - Hyperlipidemia, unspecified (5) HTN (hypertension): Status: Acute Qualifiers: Hypertension type: primary hypertension Qualified Code(s): I10 - E ssential (primary) hypertension Category: Medical Code(s): I10 - Essential (primary) hypertension (6) Acute blood loss anemia: Status: Acute Category: Medical Code(s): D62 - Acute posthemorrhagic anemia (7) Obesity (BMI 30.0-34.9): Status: Acute Category: Medical Code(s): E66.811 - Obesity, class 1 Plan José Basurto is a 79-year-old male who presented with upset stomach and multiple episodes of bowel movements this morning. Found to have worsening anemia. Highly suspicious for GI bleed. Elevated BUN disproportionate to creatinine. Discussed case with ER physician, request admission for further management of suspected upper GI bleed in patient who recently received stenting 10 days ago. I decided to admit for further care. Necessitating inpatient management. Have consulted surgery to evaluate for possible EGD. Cardiology consulted to assist with medication management given recent stenting and need for antiplatelet therapy as well as anticoagulation. Taken for EGD this morning. Problems addressed as follows: Upper GI bleed Peptic ulcer Acute blood loss anemia - Hemoglobin prior to admission 12.6, 10.7 on admission, dropped last night to low 8 range. Patient was diaphoretic. Transfused 2 units. Improved to 10.2 this morning. White count 14.7, likely reactive. - BUN improved this morning 68, creatinine 1.1 - EGD performed by surgery, reviewed results, found to have punctate ulcer. Was injected with epi and clipped. Had some oozing. Will continue clear liquid diet. -Continue pantoprazole 40 mg IV twice daily. Discontinue misoprostol due to patient's symptoms concerning for side effect of nausea, diaphoresis, upset stomach -Repeat CBC, CMP, magnesium ordered for the morning. - Transfusion threshold hemoglobin less than 9. Received 2 units yesterday. Stable today. Will monitor for stable hemoglobin prior to discharge home #HFpEF, stable #History of CABG # CAD status post stenting 10 days ago #Hypertension #Hyperlipidemia ?Recent cath performed on 11/19. Received 3 stents to LAD. Currently on triple therapy with aspirin, Plavix, Eliquis. -Consulted cardiology, will hold aspirin at this time and Eliquis. Continue Plavix 75 mg daily -No chest pain. No concern for ACS ? ECHO 11/16/2024 reveals LVEF 50% with biatrial dilation. A1c 5.6, LDL 86 ?Continue Lipitor 80 mg nightly Lasix 40 mg daily, metoprolol succinate 25 mg daily, and spironolactone 25 mg daily #Anxiety depression: Continue home duloxetine 60 mg. Full code DVT prophylaxis: On hold due to GI bleed Clear liquid diet
[2024-11-30] MEDS: SPIRONOLACTONE 25MG TABLET 25 MG PO (08:46)
[2024-11-30] MEDS: PREGABALIN 100MG CAPSULE 200 MG PO ×2 (08:46→20:23)
[2024-11-30] MEDS: DULOXETINE 30MG CAPSULE.DR 60 MG PO (08:47)
[2024-11-30] MEDS: PANTOPRAZOLE 40MG VIAL 40 MG IV ×2 (08:47→20:23)
[2024-11-30] MEDS: SODIUM CHLORIDE 0.9% 10ML VIAL 10 ML IV ×2 (08:47→20:23)
[2024-11-30] MEDS: METOPROLOL SUCCINATE XL 25MG TABLET 25 MG PO (08:47)
--- NOTE | 2024-11-30 09:22 | PC.NURSE ---
patient went to surgery via bed with surgery RN @[phone]
[2024-11-30] MEDS: EPINEPHrine 0.1 MG/ML 10ML SYRINGE (CRASH CART) 1 MG (10:21)
--- NOTE | 2024-11-30 10:23 | P.PN_ITS ---
Subjective Subjective Date: 11/30/24 Time: 10:23 Principal diagnosis: GI bleed, recent coronary stenting Interval history: 79-year-old white male complaining of nausea and not feeling well. Patient appears diaphoretic with baseline vitals including heart rate and blood pressure appear stable. Going for EGD this AM Exam Data for Last 24 hours Vital signs and Labs for Last 24 Hours: Temp Pulse Resp BP Pulse Ox O2 Del Method O2 Flow Rate 98.0 F 82 20 130/67 99 Nasal Cannula 2 11/30/24 09:09 11/30/24 09:09 11/30/24 09:09 11/30/24 09:09 11/30/24 09:09 11/30/24 09:09 11/30/24 09:00 FiO2 2 11/30/24 09:09 Laboratory Results - last 24 hr 11/29/24 06:45: Blood Type Confirm B Positive 11/29/24 16:48: Hgb 8.7 L D, Hct 26.8 L 11/29/24 19:00: Blood Type B Positive, Antibody Screen Negative, Crossmatch (AHG) See Detail 11/30/24 03:04: Hgb 10.3 L D, Hct 31.7 L 11/30/24 05:33: WBC 14.7 H, RBC 3.77 L, Hgb 10.2 L, Hct 32.4 L, MCV 85.9, MCH 27.1, MCHC 31.5 L, RDW 17.6 H, Plt Count 149 D, MPV 11.6 H, Neut % (Auto) 80.2 H, Lymph % (Auto) 8.2 L, [place] % (Auto) 6.1, Eos % (Auto) 2.4, Baso % (Auto) 0.7, Neut # (Auto) 11.8 H, Lymph # (Auto) 1.2, [place] # (Auto) 0.9, Eos # (Auto) 0.4, Baso # (Auto) 0.1, Sodium 145, Potassium 3.8, Chloride 109 H, Carbon Dioxide 26, Anion Gap 13.8, BUN 68 H, Creatinine 1.10, Estimated Creat Clear 79, Estimated GFR 64, Est GFR ( Amer) 78, Glucose 125 H D, Calcium 8.5, Magnesium 1.9, Total Bilirubin 0.6, AST 28, ALT 15, Alkaline Phosphatase 91, Total Protein 5.9 L, Albumin 3.2 L D, Globulin 2.7, Albumin/Globulin Ratio 1.2 I & O for Last 24 hours: Intake & Output 11/27/24 11/28/24 11/29/24 11/30/24 11:59 11:59 11:59 11:59 Intake Total 1500 / 1500 Output Total 2450 / 2450 Balance -950 / -950 Weight 230 lb 231 lb 0.006 oz Constitutional Constitutional: mild distress and moderate distress *Routine Respiratory Exam Respiratory: Present CTA bilaterally *Routine Cardiovascular Exam Cardiovascular: Present RRR Progress Note: A&P Assessment and plan (1) Melena: Status: Acute (2) CAD (coronary artery disease): Status: Acute (3) HLD (hyperlipidemia): Status: Acute (4) HTN (hypertension): Status: Acute (5) History of coronary artery bypass graft: Status: Acute (6) Acute on chronic heart failure with preserved ejection fraction (HFpEF): Status: Acute (7) Acute upper GI bleed: Status: Acute (8) Acute blood loss anemia: Status: Acute (9) Obesity (BMI 30.0-34.9): Status: Acute (10) NSTEMI (non-ST elevated myocardial infarction): Status: Acute (11) Paroxysmal atrial fibrillation: Status: Acute (12) PVCs (premature ventricular contractions): Status: Acute Assessment and Plan Assessment and Plan for All Diagnoses:: 1. Nausea, abdominal pain with multiple BMs with subsequent melanotic stool -EGD today -Monitor hemoglobin with threshold of 9 for consideration of transfusion -On Cytotec and PPI therapy 2. CAD, prior bypass with recent LAD stenting, 11/19/2024 -Discontinue aspirin and continue Plavix therapy -On metoprolol and statin therapy -GDMT not implemented due to prior hypotension 3. History of hypertension, well-controlled 4. HFpEF -Continue spironolactone and use Lasix as needed 5. Hyperlipidemia, continue statin therapy 6. History of CVA 7. History of A-fib with CHADS-VASC score of 7 (9.6% chance of CVA per year) with HAS BLED score of 4 (8.9% risk of recurrent bleed) -Continue rate control with metoprolol -Holding Eliquis due to GI bleed. We should definitely consider restarting in near future (1-2 wks) due to prior CVA. -Consider referral for Watchman device as outpatient. Nothing further to add. Continue plavix. Follow up in office in 1-2 wks to consider restarting eliquis and referring for Watchman device.
--- NOTE | 2024-11-30 10:30 | P.PCN_ITS ---
Procedure: Date: 11/30/24 Patient Date of :: 1945 Procedure Performed:: Esophagogastroduodenoscopy with epinephrine injection and clip deployment for hemostasis Indications:: Patient is an 79-year-old male with history of congestive heart failure, coronary artery disease, hyperlipidemia, prior coronary artery bypass grafting, left bundle branch block, history of paroxysmal atrial fibrillation, previous abdominal aortic aneurysm repair, spinal stenosis with recent admission to this facility on 11/15/2024 after transfer from outside facility due to elevated troponins. He was treated for non-STEMI and underwent deployment of multiple stents. He was started on Eliquis, Plavix, and aspirin. Patient presented to the emergency department early this morning due to abdominal pain and multiple bowel movements. Evaluation revealed hemoglobin at 10.7 which was down from prior 12.6 48 hours prior along with an isolated BUN elevation to 85 with normal creatinine. He was found to have grossly melanic stool. He had CT angiogram of the abdomen and pelvis which revealed no evidence of central mesenteric arterial occlusive disease aside from normal ALOK occlusion. No evidence of bowel obstruction or bowel wall thickening. He was admitted for inpatient management and surgical consultation was obtained for GI blood loss. In the afternoon of 11/29/2024 he did have further decrease in his hemoglobin to 8.7 and was transferred to the intensive care unit for close monitoring. He underwent 2 unit transfusion with posttransfusion hemoglobin of 10.3. . Performing Provider:: Spenser Marquez MD Referring Provider:: . Sedation:: MAC sedation Procedure:: Patient history was obtained and appropriate physical examination was performed. Patient's medications and allergies were reviewed. Informed consent was obtained after explaining the benefits, alternatives, and risks of the procedure including, but not limited to, bleeding, perforation, missed lesions, and adverse reaction to anesthesia medications. Patient was transported to endoscopy procedure room. Patient was connected to monitoring devices. Throughout the procedure the patient's blood pressure, pulse, and oxygen saturations were monitored continuously. Patient identification and planned procedure were verified by the staff. Patient was positioned in lateral decubitus position. Olympus endoscope was inserted via the oropharynx. Esophagus was cannulated. There was some mild tortuosity to the esophagus consistent with esophageal dysmotility. Gastroesophageal junction was encountered at 42 cm from the incisors. Stomach was cannulated and insufflated. There was liquid heme like material within the stomach. This was largely irrigated and suctioned free. Retroflexion revealed a small sliding hiatal hernia. There was evidence of presumed diffuse scattered erosions consistent with erosive gastritis. Gastric mucosa easily bled with minimal manipulation/instrumentation. Pylorus was traversed. Within the duoden al bulb there appeared to be fresher appearing blood. It was difficult to evaluate any source but there did appear to be some evidence of erosive duodenitis characterized by punctate exudates. The endoscope was able to be advanced into the distal duodenum which appeared relatively unremarkable. I was once again withdrawn into the duodenal bulb and the second portion of the duodenum was carefully inspected. There was a punctate area which appeared to show likely some slow ooze of fresher blood. Irrigation and suctioning was performed of this area this appeared to be a small punctate ulcer with visible red spot. Due to the stigmata of recent bleeding and evidence of ongoing slow ooze epinephrine was injected circumferentially consisting of a total of 2-1/2 cc epinephrine. This resulted in mucosal blanching. Thorough inspection was then carried out this did appear to be a tiny ulcer with visible red spot consistent with healing visible vessel. A couple of hemoclips were deployed for assurance of hemostasis. The area appeared to be completely hemostatic at the time of completion of the procedure. Stomach was desufflated and the endoscope was withdrawn. . Findings:: Mild esophageal dysmotility Gastroesophageal junction at 42 cm Small sliding hiatal hernia Liquid he material within the stomach Erosive antral gastritis Erosive duodenitis Punctate ulcer in the second portion of the duodenum, post bulbar, with slow ooze and stigmata of bleeding, epinephrine injected and Hemoclip x 2 deployed Recommendations:: Limited to clear liquids for today. Maximize medical therapy. Transfuse as needed. Monitor hemoglobin hematocrit Complications:: None immediately apparent Estimated blood obtained (mL): 2 Colonoscopy Component Colonoscopy Component Was a colonoscopy performed during today's procedure?: No
--- NOTE | 2024-11-30 10:37 | P.PNANES_ITS ---
[facility] Disclaimer: The information contained in this section may have been updated after the patient was seen, as this information can be updated by other users. Medical History Acute on chronic heart failure with preserved ejection fraction (HFpEF) PVCs (premature ventricular contractions) Paroxysmal atrial fibrillation NSTEMI (non-ST elevated myocardial infarction) Kyphosis Osteoarthritis BPH (benign prostatic hyperplasia) Osteopenia DDD (degenerative disc disease) Peripheral neuropathy Chronic pain syndrome Anxiety Obesity HTN (hypertension) HLD (hyperlipidemia) Aneurysm History of alcohol abuse History of substance abuse Hypertension Neuropathy Surgical History History of coronary artery bypass graft Hx of cervical spinal arthrodesis S/p total knee replacement, bilateral History of heart bypass surgery Family History Other Cancer Social History Smoking Status: Current every day smoker tobacco type: cigarettes packs per day: 1 alcohol intake: never substance use type: denies use current occupational status: other Travel in the last 8 weeks?: None household members: spouse housing: house current occupational exposures/hazards: No caffeine: Yes [facility] Anesthesia Checklist Patient Identification Patient Identification: Arm Band and Family Structural Data Admitted From: Inpatient Planned Operative Procedure/s: EGD Consent for Planned Operative Procedure(s) Verified: Yes Verified Documents: Surgical Consent and History and Physical NPO Status Verified Time NPO: 00:00 Additional verifications Anesthesia Reactions: No Hx Blood Transfusions: No Blood Transfusion Reaction: No Airway Assessment Mallampati Score:: Class II C-Spine Mobility Assessed: Yes TMJ Mobility Assessed: Yes Dentition: Dentures-good fit (dentures removed) Neurological Assessment Level of Consciousness: Awake Anesthesia Plan Anesthesia Risk discussed: Yes Anesthesia Plan: Verified ASA Class: III Anesthesia Type: MAC
--- NOTE | 2024-11-30 10:51 | PC.NURSE ---
patient arrived back to the ICU in room 264 via bed from surgery with surgery RN @[phone]
[2024-11-30] MEDS: CLOPIDOGREL 75MG TAB 75 MG PO (11:26)
--- NOTE | 2024-11-30 12:12 | PC.NURSE ---
brianne care and pure wick change was done on patient per Qshift protocol and due to a pure wick malfunction.
--- NOTE | 2024-11-30 14:37 | HMH.PTEV ---
Physical Therapy Evaluation Rehab PT IP Evaluation Start: 11/30/24 08:58 Freq: ONCE Status: Active Protocol: Document 11/30/24 14:33 LUPILLO (Rec: 11/30/24 14:37 LUPILLO [id number]) Subjective/History History History Per H&P: Mr. Bsaurto is an 79-year-old male with history of heart failure, hypertension, hyperlipidemia. Underwent heart cath 10 days ago through the right groin. Has paroxysmal A-fib and prior AAA repair. On triple therapy with aspirin, Plavix, Eliquis. Presented to the ER today due to complaint of nausea without vomiting but this was followed by multiple bowel movements. Had some abdominal pain. That is improved at this time. Denies chest pain or shortness of breath. No loss of consciousness. Did not appreciate if his bowel movements were black or bloody. On arrival to the ER, patient is hemodynamically stable. Workup including labs showed white count of 14 , hemoglobin of 10, down 2 points in 3 days. Creatinine 1.2 but BUN severely elevated 85. Strong concern for GI bleed. Medicine consulted for admission and further management Subjective Subjective PLOF: IND with short amb distances using rollator. Still driving. HOME: lives with in single-story home with 0 KELSI. Available assistance: able to assist as needed but not 27/12 per her report. New diagnosis of No cancer in past 12 months? [facility] How much help from another person do you currently need... Turning from your A little back to your side while in a flat bed without using bedrails? Moving from lying on A little back to sitting on the side of a flat bed without using bedrails? Moving to and from a A little bed to a chair ( including a wheelchair)? Standing up from a A little chair using your arms? (e.g., wheelchair, bedside chair) Walking in hospital A little room? Climbing 3-5 steps A lot with a railing? Mobility Score 17 Mobility Level [facility] Mobility 5 Stand (1 or more minutes) Mobility Calculator Rehab PT IP Eval Objective Appearance Patient Behavior Appropriate,Cooperative Patient Orientation Situation Difficulty following none instructions Speech Pattern Clear Ambulation Patient Able to Yes Ambulate Ambulation Observation IP General Gait Wide Based Gait Pattern Observation Ambulation Distance 5 (feet) Ambulation Ability Minimal x 1 (25% assist) Balance Ability to Arise Able, uses arms to help Sitting Balance Steady, safe Standing Balance Steady, wide stance Dynamic Sitting Good Balance Ability Dynamic Standing Fair Balance Ability Transfers Bed Transfer Ability Minimal x 1 (25% assist) Sit to Stand Bed Minimal x 1 (25% assist) Transfer Ability Rehab PT IP prob,goals,plan Problems Date of Evaluation: 11/30/24 PT IP Problems Bed Mobility,Transfers,Gait,Balance,Self care,Safety Rehab Potential Rehab Potential Good Plan PT Intervention Plan Bed Mobility,Transfers,Gait,Balance,Self care,Safety, Therapeutic Exercise Other Intervention 1-2 times Plan PT Plan Frequency Daily Duration LOS Discharge Goals Bed Transfer Ability Supervision/Stand by Sit to Stand Chair Supervision/Stand by Transfer Ability Discharge Plan PT Discharge Plan Initial physical therapy evaluation performed. Patient presents below baseline at this time in functional mobility, transfers, and strength. Pt only safe to d/c home if he is able to secure 24/7 assistance or improve his mobility while at [facility]. If not, PT recommending short-term rehabilitation stay upon d/c from [facility] to maximize safety. Pt would benefit from skilled PT while at [facility] to prevent further functional decline and maximize safety with mobility. Eval Complexity Eval Charge Codes 47670 - Moderate Complexity PHYSICIAN CERTIFICATION: I certify the specified therapy services for José Basurto JR are required, authorized, and reviewed every 30 days.
--- NOTE | 2024-11-30 14:38 | SW/DCPLANNER ---
Addendum entered by Salima Foley 12/03/24 10:55: I faxed patient's information to [facility] and will update when i hear if they can accept patient or not. Jackie John Original Note: I spoke w/ patient and his regarding plans once medically stable for discharge. PT/OT evaluated patient and recommended SNF level of care. I had a lengthy discussion w/ patient and regarding placement. Patient would require private pay due to OBS status. stated that she was not interested in private pay and felt comfortable taking patient home w/ home health services. stated that [facility] was set up previous discharge (11 days ago) and they've yet to hear from agency. is interested in [facility] or [facility]. CM will set up home health services at time of discharge. Per patient has all appropriate DME at home.
--- OUTSIDE RECORDS SUMMARY | 2024-11-30 14:43 | XMS_ITS | Clinical Summary ---
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
--- OUTSIDE RECORDS SUMMARY | 2024-11-30 14:44 | XMS_ITS | Data Portability ---
Author Organization [facility] [place], Main Office Address [address] [facility] [address] [place] [address] Care Team Providers Care Septic Tank Servicer Name Role Phone VIOLETA WEST OTHER CANDY [...] DO Not Attach Compendium, Do Not Delete/merge, [id number] 0 12:11:01 Medication Orders None recorded. Patient TargetsNo targets recorded. Patient Instructions Encounter Date Encounter Id Patient Instructions Last Modified By Organization Details Last Modified Time 08/01/2019 [id number] high blood pressure: care instructions vluu Not available 08/01/2019 12:02:26 learning about high blood pressure vluu Not available 08/01/2019 12:02:27 high cholesterol : care instructions vluu Not available 08/01/2019 12:02:26 heart failure: care instructions vluu Not available 08/01/2019 12:02:27 learning about heart failure vluu Not available 08/01/2019 12:02:27 04/24/2021 [id number] high blood pressure: care instructions vluu Not available 04/24/2021 12:12:47 learning about high blood pressure vluu Not available 04/24/2021 12:12:48 high cholesterol : care instructions vluu Not available 04/24/2021 12:12:47 heart failure: care instructions vluu Not available 04/24/2021 12:12:47 learning about heart failure vluu Not available 04/24/2021 12:12:48 07/01/2021 [id number] high blood pressure: care instructions vluu Not [...] mmol/ L 136-14 5 Not Available Physicians [address], [address], 04/29/2021 13:37:57 04/29/20 21 04/29/2021 [facility] [place] potassium 3.9 mmol/ L 3.5-5. 1 Not Available Physicians [address], [address], 04/29/2021 13:37:57 04/29/2004/29/2021 [facility] [place] chloride 115 mmol/ L 98-107 high Not Available [address], [address], 04/29/2021 13:37:57 04/29/20 21 04/29/2021 [facility] [place] carbon dioxide 21 mmol/ L 21-32 Not Available Physicians [address], [address], 04/29/2021 13:37:57 04/29/20 21 04/29/2021 [facility] [place] BUN 31 mg/dL 7-18 high Not Available Physicians [address], [address], 04/29/2021 13:37:57 04/29/20 21 04/29/2021 [facility] [place] creatinine 1.10 mg/dL 0.60-1 .30 Not Available Physicians [address], [address], 04/29/2021 13:37:57 04/29/20 21 04/29/2021 [facility] [place] glucose 100 mg/dL 74-106 Not Available Physicians [address], [address], 04/29/2021 13:37:57 04/29/2004/29/2021 [facility] [place] calcium 9.2 mg/dL 8.5-10 .1 Not Available Physicians [address], [address], 04/29/2021 13:37:57 04/29/20 21 04/29/2021 [facility] [place] eGFR non 64 mL/mi n/1.7 3_m2 The estim ated GFR (Glom erula r Filtr ation Rate) is based on the CKD-E PI (Ic Design Engineer yovani Kidne y Disea se Epide miolo [...] rular filtr ation rate. Not Available Physicians [address], [address], 04/29/2021 13:37:57 04/29/20 21 04/29/2021 [facility] CA eGFR 75 mL/mi n/1.7 3_m2 The estim ated GFR (Glom erula r Filtr ation Rate) is based on the CKD-E PI (Ic Design Engineer yovani Kidne y Disea se Epide miolo [...] rular filtr ation rate. Not Available [facility] [address] [place] [address], [address], 04/29/2021 13:37:57 04/29/20 21 04/29/2021 [facility] [place] anion gap 9 Not Available Physicia ns [address], [address], 04/29/2021 13:37:57 04/29/20 21 04/29/2021 [facility] [place] BUN/crea ratio 28 ratio Not Available Physic ians [facility] [address], [place], [address], 04/29/2021 13:37:57 08/01/19 20 08/01/2019 suzi sandoval [email or web address] am No observ ation record ed. vluu In-Office Order Internal Use Only DO Not Attach Compendium DO Not Attach Compendium, Do Not Delete/merge, [id number] 04/24/2021 12:05:02 09/30/19 21 09/26/2020 trans -thor acic echoc ardio gram (TTE) (PROC ) No observ ation record ed. vluu Not Available 2020 12:05:02 03/27/20 21 03/20/2021 US, echoc ardio gram, trans thora cic, compl ete, w/ color flow No observ ation record ed. vluu Not Available 2020 12:05:02 05/05/20 21 05/05/2021 cta abdom en pelvi s [facility]: SHERMAN Y JR, JOSÉ W [id number] Sex: Male Locati on: [facility] RAD Orderi Physic tino: DANICA GARCIA MD [...] Maximiliano Schultz MD On 2020 09:47: 14; -[facility] [id number] Final Signed by: MAXIMILIANO SCHULTZ MD Signed (Elect ronsusi Signat ure): 2020 09:47 am EST [facility] [address] [place], [address], 05/05/2021 10:33:25 05/08/20 21 05/04/2021 US, echoc ardio gram, trans thora cic, compl ete, w/ color flow No observ ation record ed. [facility] - Radiology Scheduling [address] [place], [address], 07/01/2021 17:07:54 05/20/20 22 05/06/2022 US, echoc ardio gram, trans thora cic, compl ete, w/ color flow No observ ation record ed. [facility] [address] [facility] [address], [place], [address], 05/21/2022 13:06:55 Result Notes None recorded. Problems Name Problem SNOMED Code Status Onset Date Resolution Date Notes Provider Name and Address Organization Details Recorded Time Rupture of gastrocn emius tendon 908997250 Active Darryl Crockett LPN null, [place] - [facility] [place] 9 15:04:54 Ruptured Achilles tendon - traumati c 114731880 Active Darryl Crockett LPN [place], [place] - [facility] [place] 15:04:54 Lacerati on of lower limb 244106983 Active Darryl Crockett LPN null, [place] - [facility] [place] 15:04:54 Open wound of lower leg 643546905 Active Darryl Crockett LPN null, [place] - [facility] [place] 15:04:54 Hematoma 833734120 Active Darryl Crockett LPN null, [place] - [facility] [place] 15:04:54 Follow-u p visit Completed 09/21/2018 ABDIRASHID CHRISTIE MD [address], [place], [address], [facility] - [address] 15:50:13 Ulcer of heel 353969351 Active Darryl Crockett LPN null, [place] - [facility] [place] 15:04:54 Osteoart hritis of knee 903457251 Active Darryl Crockett LPN [place] - [address] 15:04:54 Swelling of lower leg 636966454 Completed 09/21/2018 ABDIRASHID CHRISTIE MD [address] ,[address] [place] [address], [address], [address] 15:50:25 Impairme nt of balance 601688046 Completed 09/21/2018 ABDIRASHID CHRISTIE MD [address] ,[address] [place] [address], [address], [address] 15:50:21 Ankle pain 365220493 Completed 09/21/2018 ABDIRASHID CHRISTIE MD [address], [place], [address], [facility] - [address] 9 15:50:33 Tendinit is 40917439 Active Darryl Crockett LPN null, [place] - [facility] [place] 15:04:54 Edema of lower extremit y 828065567 Active Darryl Crockett LPN null, [place] - [facility] [place] 15:04:54 Arthriti s 5688271 Active VIOLETA WEST MD [address] [place], [address], [address] 7 21:57:07 Coronary arterios clerosis 90242267 Active 2018 S/P CABG 3 vessel, LAD, OM and PDA in 08/2018 ABDIRASHID CHRISTIE MD [address] ,[address] [place] [address], [address], [address] 9 15:49:30 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 007226527 Active 2018 EF 38% by dave ogram in 08/2018 ABDIRASHID CHRISTIE MD [address] ,[address] [place] [address], [address], [address] 9 15:50:06 Essentia l hyperten vicky 09312740 Active 2018 ABDIRASHID CHRISTIE MD [address] ,[address] [place] [address], [address], [address] 9 15:53:46 Hyperlip idemia 28823021 Active 2018 ABDIRASHID CHRISTIE MD [address] ,[address] [facility], [place], [address], [address] 9 15:53:53 [place]weig ht 409961633 Active 2018 ABDIRASHID CHRISTIE MD [address] ,[address] [place] [address], [address], [address] 9 15:54:04 Congesti ve heart failure 05554622 Active 2018 ABDIRASHID CHRISTIE MD [address] ,[address] [place] [address], [address], [address] 9 15:54:13 Problem Notes None recorded. Procedures Surgical History Date Name Laterality Status Provider Name and Address Organization Details Recorded Time 022 echocardiogram completed ABDIRASHID CHRISTIE MD [address] [place] [address], [address], [address] 05/21/2022 13:05:22 021 echocardiogram completed ABDIRASHID CHRISTIE MD [address], [place], [address], [address] 05/21/2022 13:04:10 021 Other completed America Bashir LPN [address] 07/01/2021 16:51:09 021 echocardiogram completed ABDIRASHID CHRISTIE MD [address], [place], [address], [address] 09/30/2020 12:17:32 020 Electrocardiogram complete completed America Bashir [address] 08/01/2019 11:43:31 019 Electrocardiogram complete completed America Bashir [address] 04/18/2019 12:24:07 019 Electrocardiogram complete completed ABDIRASHID CHRISTIE MD [address], [place], [address] [place] [address] 10/18/2018 10:07:44 019 Other completed ABDIRASHID CHRISTIE MD [address], [place], [address], [address] 10/20/2018 14:41:49 019 cardiac catheterization completed ABDIRASHID CHRISTIE MD [address], [place], [address], [address] 03/20/2021 16:42:35 019 echocardiogram completed ABDIRASHID CHRISTIE MD [address], [place], [address], [address] 09/21/2018 15:52:59 019 Cabg vein three completed ABDIRASHID CHRISTIE MD [address], [place], [address], [address] 09/21/2018 15:52:19 016 Corticosteroid Injection completed VIOLETA WEST MD [address] [place] [address], [address], [address] 11/25/2015 13:19:45 016 Corticosteroid Injection completed Briana Jones [address] 10/21/2015 12:51:53 016 Cortisone Injection (Knee) 80 MG completed VIOLETA WEST MD [address] [place] [address], [address], [address] 07/02/2015 10:49:10 015 Synvisc/Gel-One Injection completed VIOLETA WEST MD [address] [place] [address], [address], [address] 05/20/2015 23:39:34 015 Synvisc/Gel-One Injection completed VIOLETA WEST MD [address] [place] [address], [address], [address] 05/06/2015 10:33:08 015 Synvisc/Gel-One Injection completed VIOLETA WEST MD [address] [place] [address], [address], [address] 04/29/2015 14:33:01 015 Cortisone Injection (Knee) completed Abiola Osullivan [address] 04/08/2015 10:33:45 015 Other completed Rashmi Villeda [address] 10/14/2014 10:21:27 Remove tonsils and adenoids completed Es Gomez [address] 08/20/2014 15:16:33 Imaging Results None recorded. [...] Updated DateTime 2 175.26 cm 35.6 kg/m2 631387. 76 g 15 /min 69 /min 96 % 96 % 128 mm[Hg] 72 mm[Hg] America Bashir LPN [facility]14 [place] 2 16:53:38 Date Recorded Body height Body mass index (BMI) Body weight Respiratory rate Oxygen saturation Oxygen saturation in Arterial blood by Pulse oximetry Heart rate Systolic blood pressure Diastolic blood pressure Provider Name and Address Organization Details Last Updated DateTime 0 175.26 cm 31.2 kg/m2 00095.9 9 g 16 /min 98 % 98 % 58 /min 122 mm[Hg] 74 mm[Hg] America Bashir LPN [facility]14 [place] 0 11:42:40 Date Recorded Body weight Heart rate Respiratory rate Oxygen saturation Oxygen saturation in Arterial blood by Pulse oximetry Body temperature Body mass index (BMI) Body height Systolic blood pressure Diastolic blood pressure Provider Name and Address Organization Details Last Updated DateTime 1 45889.3 2 g 62 /min 16 /min 95 % 95 % 97.5 [degF] 32.5 kg/m2 175.26 cm 120 mm[Hg] 80 mm[Hg] Mj Billingsley CMA [facility]14 [place] 1 09:31:11 Date Recorded Body height Body mass index (BMI) Body weight Heart rate Respiratory rate Oxygen saturation Oxygen saturation in Arterial blood by Pulse oximetry Body temperature Systolic blood pressure Diastolic blood pressure Provider Name and Address Organization Details Last Updated DateTime 1 175.26 cm 32.5 kg/m2 38190.3 2 g 61 /min 16 /min 97 % 97 % 97.1 [degF] 130 mm[Hg] 62 mm[Hg] Zhane zavala RN [place] - [facility] [place] 1 14:28:10 Date Recorded Body height Body mass index (BMI) Body weight Heart rate Respiratory rate Oxygen saturation Oxygen saturation in Arterial blood by Pulse oximetry Systolic blood pressure Diastolic blood pressure Provider Name and Address Organization Details Last Updated DateTime 1 175.26 cm 35.4 kg/m2 645640. 17 g 70 /min 15 /min 97 % 97 % 129 mm[Hg] 67 mm[Hg] America Bashir, AVIONICS SYSTEM ENGINEER [facility] [place] 12:26:57 Social History Question Answer Notes LastModified by [employer] Details LastModified Time Tobacco Smoking Status Former Smoker Es cardoza, [address] 08/20/2014 15:16:34 What Is Your Level Of Caffeine Consumption? Occasional [email or web address] Information not available 08/20/2014 Marital Status [email or web address] Informatio n not available 08/20/2014 What Was The Date Of Your Most Recent Tobacco Screening? 10/18/2018 Information not available 12/29/2018 How Many Children Do You Have? 0 [email or web address] Information not available 08/20/2014 At What Age Did You Start Smoking Tobacco? 39 [email or web address] Information not available 08/20/2014 How Much Tobacco Do You Smoke? 0.5 PPD [email or web address] Information not available 08/20/2014 Sex: Unknown Functional Status Question Answer Note LastModified by Organizat ion Details LastModified Time What is your level of alcohol consumption? 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 Family History Relationship Description Onset Age of this Age Resolved Age Notes LastModified by Organization Details LastModified Time Father Hypertensive disorder [email or web address] Not available 2016 21:57:07 Mother Dementia [email or web address] Not available 06/07/2016 21:57:07 Medical History Condition [...] GI Problems N Anemia N Heart Attack (ND) N Ulcers N Diabetes N Bleeding Disorder [...] SNOMED-CT Code Diagnosis ICD10 Code Diagnosis Note [id number] VIOLETA WEST MD [address] [facility] [address] [address] 08/20/2014 14:38:32 08/20/2014 15:38:45 Rupture of gastrocnemius tendon 128547639 Ruptured A chilles tendon - traumatic 025652865 Laceration of lower limb 541284535 [id number] VIOLETA WEST MD [address] [address] [address] 09/17/2014 10:56:12 09/17/2014 11:42:44 Laceration of lower limb 450775805 Ruptured A chilles tendon - traumatic 673813849 Open wound of lower leg 360274861 verbal consent obtained and wound debrided. no complicati ons noted. xeroform drsg applied. recommend daily xeroform drsg changes. wbat with boot and wedges. f/u 2 weeks. no xrays. [id number] MD DAMON STODDARD[facility] [facility] [address] [address] 10/01/2014 12:56:48 10/01/2014 13:29:57 Ruptured Achilles tendon - traumatic 274161536 wbat with boot. non viable tissue removed with forceps. xeroform dressing applied. f/u 2 weeks. Hematoma 433705775 verba l consent obtained. hematoma debrided with 15 blade scalpel. stable base obtained. xeroform dressing applied. boot applied. wound rn instructio ns given for donut dressing. october d/c boot when not wb. f/u 2 weeks. Ulcer of heel 175496407 wound debrided and dressed. elevate and donut pressure relief dressing rx'd. f/u 2 weeks. [id number] VIOLETA WEST MD [address] [place] [address] 10/14/2014 09:38:55 10/14/2014 10:31:36 Rupture of gastrocnemius tendon 448809923 continue wbat with boot. removed one wedge. f/u north to remove one juanjo every 2 weeks. d/c boot in 6-8 weeks. start PT when appropriat e. Ulcer of heel 061355204 wound debrided and dressed. elevate and donut pressure relief dressing rx'd. f/u 2 weeks. [id number] MD DAMON STODDARD[address] [facility] [place] [address] 03/11/2015 08:53:59 03/11/2015 09:18:07 Rupture of gastrocnemius tendon 382083154 M66.369 Recommende d physical therapy for Achilles tendon due to residual pain. Patient doesn't have a car available for him to use. Discussed expected maximum of 75% in strength compared to right calf. Will order an MRI if pain persists. Ulcer of heel 459122706 L97.409 monitor changes. [id number] MD DAMON STODDARD[address] [facility] [address] [place] [address] 04/08/2015 09:15:32 04/08/2015 09:47:05 Rupture of gastrocnemius tendon 480537941 M66.362 Continue physical therapy for gastroc tendon due to improvemen t. Patient doesn't have a car available for him to use. Discussed expected maximum of 75% in strength compared to right calf. Will order an MRI if pain persists. monitor changes. Ulcer of heel 063473965 L97.409 monitor changes. Osteoarthr itis of knee 344216735 M17.0 Discussed non-surgic al and surgical options. Discussed bilateral knee cortisone injections to alleviate current pain. Recommende d bilateral Synvisc injections due to arthritic changes. Discussed that patient's typically notice a decrease in pain after the 1st injection more so than the 2nd. Discussed that a cortisone injection is sometimes necessary after Synvisc to help with residual swelling. [id number] MD DAMON [address]ARD[address] [facility] [address] 04/29/2015 09:33:30 04/29/2015 10:00:29 Osteoarthritis of knee 146282814 M17.0 Discussed Synvisc injections due to arthritic changes to alleviate pain. Rupture of gastrocnemius tendon 346093986 M66.362 continue activity as tolerated. pt is undergoing home exercise program. [id number] MD DAMON STOD[address]ARD[address] [place] [address] 05/06/2015 09:30:21 05/06/2015 11:36:30 Osteoarthritis of knee 190924136 M17.0 Patient received his 2nd round of Synvisc injections in bilateral knees in the office today. RTC 1 week for 3rd injection Rupture of gastrocnemius tendon 573984162 M66.362 continue activity as tolerated. pt is undergoing home exercise program. [id number] MD DAMON STOD[address] [place] [address] 05/13/2015 09:38:28 05/13/2015 10:08:38 Osteoarthritis of knee 132263025 M17.0 Bilateral knees - 3rd round of [...] does not resolve. Rupture of gastrocnemius tendon 392145463 M66.362 continue activity as tolerated. [id number] VIOLETA WEST MD [address] [place] [address] 07/02/2015 08:37:47 07/02/2015 09:28:38 Osteoarthritis of knee 067735877 M17.0 Patient completed his Synvisc injections on 05/13/15. Explained that a cortisone injection is sometimes necessary after Synvisc to help with residual swelling. Recommende d a cortisone injection in his right knee today since the pain has worsened. Right knee injection given. Patient will RTC for a left knee cortisone injection at his convenien e. Rupture of gastrocnemius tendon 569008574 M66.362 Continue physical therapy as long as the patient reports improvemen t in his gait and pain. continue gentle stretches to improve pliability . Swelling of lower leg 44 9797360 R22.42 continue PT and lymphedema massage. Impairment of balance 38 2309184 R26.89 continue PT. if not improving then will consider neurology consult. [id number] MD DAMON STODDARD[facility]IN [facility] [address] [address] 10/21/2015 11:32:35 10/21/2015 12:30:38 Ankle pain 430078538 M25.572 No acute osseous abnormalit y noted in xrays. Due to severe worsening, I offered the patient a cortisone inj at this time. He agreed and tolerated the procedure well. f/u prn. Edema of l ower extremity 087084258 R60.0 Inflammati on should improve with inj. f/u prn. Tendinitis 17725458 M77. 9 Discussed US results with the patient. Cortisone inj given. f/u prn. Rupture of gastrocnemius tendon 023880081 M66.362 pt is s/p gastrocnem ius tendon repair on 08/26/14. Osteoarthr itis of knee 064275922 M17.0 Previous cortisone inj did not provide any relief. Pt would like to proceed with b/l TKA when he returns to [place] in the fall. Discussed the r/b/a of TKA as well as the post-opera tive and recovery period. Explained to the patient that b/l TKA has increased risks and complicati ons, and advised pt to start with more painful knee before proceeding with the other at a later time. Pt understand s and will f/u in the fall. [id number] MD FABIANA STODDARD [facility] [address] [address] 10/28/2015 09:42:28 10/28/2015 10:05:37 Ankle pain 348000122 M25.572 Pain has improved but still persists 1 week following cortisone inj. Begin physical therapy 3x/week x6 weeks. Will also order for an MRI if symptoms do not improve with physical therapy prior to next visit. Edema of l ower extremity 610930720 R60.0 Inflammati on has improved but still persists 1 week following cortisone inj. Begin physical therapy 3x/week x6 weeks. Will also order for an MRI if symptoms do not improve with physical therapy prior to next visit. Tendinitis 95887842 M76. 62 See above Rupture of gastrocnemius tendon 208668754 M66.362 Inflammati on and pain improved but still persists 1 week following cortisone inj. and s/p gastrocnem ius tendon repair on 08/26/14. Begin physical therapy 3x/week x6 weeks. Will also order for an MRI if symptoms do not improve with physical therapy prior to next visit. See above. Osteoarthr itis of knee 171927755 M17.0 Pt would like to proceed with b/l TKA when he returns to [place] in the fall. Discussed the r/b/a of TKA as well as the post-opera tive and recovery period. Explained to the patient that b/l TKA has increased risks and complicati ons, and advised pt to start with more painful knee before proceeding with the other at a later time. Pt understand s and will f/u in the fall. [id number] VIOLETA WEST MD [facility] [address] [facility] [address] [place] [address] 11/18/2015 09:39:10 11/18/2015 10:10:00 Ankle pain 571632202 M25.572 Per patient, previous cortisone inj provided minimal relief, however pt reports improvemen t with physical therapy. Cont PT. Patient would like to go [place]. Explained to pt that going home is acceptable at this time. Advised pt to cont swimming and perform PT exercises at home. RICE. pain meds prn. f/u prn. Edema of l ower extremity 892230107 R60.0 Inflammati on has improved. Will monitor. f/u prn Tendinitis 81921409 M76. 62 See above Rupture of gastrocnemius tendon 914922642 M66.362 s/p gastrocnem ius tendon repair on 08/26/14. Patient reports improvemen t with physical therapy. Cont PT. f/u prn Osteoarthr itis of knee 736465165 M17.0 Pt would like to proceed with b/l TKA when he returns to [place] in the fall. Discussed the r/b/a of TKA as well as the post-opera tive and recovery period. Explained to the patient that b/l TKA has increased risks and complicati ons, and advised pt to start with more painful knee before proceeding with the other at a later time. Pt understand s and will f/u in the fall. Arthritis 1298337 M19.17 2 Reviewed MRI results with the pt. Will monitor. [id number] MD DAMON STOD[address]ARD[address] [facility] [facility] [address] [place] [address] 11/25/2015 10:11:52 11/25/2015 10:49:09 Ankle pain 968661517 M25.572 Discussed MRI results. Pt reports minimal [...] f/u prn Edema of l ower extremity 953673990 R60.0 Will monitor. Tendinitis 61877900 M76. 62 Due to severe worsening, I offered the pt a cortisone inj at this time. He agreed and tolerated the procedure well. US results: limited study- ATFL thickening ; mild ankle effusion; partial tear of ATFL Rupture of gastrocnemius tendon 208714084 M66.362 s/p gastrocnem ius tendon repair on 08/26/14. Patient reports improvemen t with physical therapy. Cont PT. f/u prn Osteoarthr itis of knee 231697347 M17.0 Pt would like to proceed with b/l TKA when he returns to [place] in the fall. Discussed the r/b/a of TKA as well as the post-opera tive and recovery period. Explained to the patient that b/l TKA has increased risks and complicati ons, and advised pt to start with more painful knee before proceeding with the other at a later time. Pt understand s and will f/u in the fall. Arthritis 8065181 M19.17 2 Reviewed MRI results with the pt. Discussed surgical tx. f/u prn [id number] MD DAMON [address]OD[address]ARD[address] [place] [address] 04/13/2016 16:08:51 04/13/2016 16:41:50 Edema of lower extremity [id number] R60.0 Will monitor. Arthritis 0738561 M19.17 2 Reviewed MRI results with the pt. Discussed surgical tx. f/u prn Osteoarthr itis of knee 672211522 M17.0 Discussed the r/b/a of Left TKA [...] replacemen t coaching/c lass with his . [id number] VIOLETA WEST MD [address] [facility] [address] [place] [address] 05/25/2016 09:16:59 05/25/2016 10:15:43 Osteoarthritis of knee 047619193 M17.0 Discussed the r/b/a of Left TKA [...] his . Edema of l ower extremity 578470019 R60.0 Will monitor. Arthritis 8782720 M19.17 2 Reviewed MRI results with the pt. Discussed surgical tx. f/u prn [id number] ABDIRASHID CHRISTIE MD [address] [place] [address] 09/21/2018 14:15:25 09/21/2018 15:52:09 Coronary arteriosclerosis 34383940 I25.10 Review diagnosis and care plan. Discuss cardiac rehab post CABG and he wants to do that in [place] as he is going back there soon. Discuss risk modificati on. FU in 6mo when he returns to [place] for the next season. Advise to see his local cardiologi st when he gets back to [place]. Generalize d ischemic myocardial dysfunction 010390427 I25.5 Stable without evidence of heart failure. Recent loss blood pressure at his physical therapy (80/50), and tolerates current medication s with acceptable blood pressure. Essential hypertension 16233184 I10 Continue to take current medication s, encourage to stay physically active as tolerate. Hyperlipidemia 33268961 E78.2 Continue medication , advise to bring a copy of the latest lab to the next OV when he has it done with his PCP for review. Overweight 641161236 E66 .3 Review weight reduction strategy, encouragem ent and support provided. Congestive heart failure 01991128 I50.9 Stable with medication s and to continue. Review risk of CHF exacerbati on. [id number] ABDIRASHID CHRISTIE MD [address] [place] [address] 10/18/2018 08:31:31 10/18/2018 10:12:23 Hyperlipidemia 09653177 E78.2 Tolerates atorvastat in and to continue. Encourage to bring a copy of the latest lab result to the next OV. Essential hypertension 13527674 I10 Continue to take current medication s, encourage to stay physically active as tolerate. Coronary arteriosclerosis 58695373 I25.10 Stable with medication s to continue metoprolol and furosemide . Discuss risk modificati on. Discuss cardiac rehab in [place] when he is back home. FU in 6mo when he returns to [place] for the next winter. ECG today shows sinus rhythm, will stop amiodarone . 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 Congestive heart failure 10865077 I50.9 Review risk of CHF exacerbati on. Continue furosemide . Monitor. Overweight 004882085 E66 .3 Review weight reduction strategy, encouragem ent and support provided. Edema of l ower extremity 827135482 R60.0 New findings, will send for leg US to screen for DVT. Will call with result and advice. [id number] ABDIRASHID CHRISTIE MD [address] [place] [address] 04/18/2019 11:05:27 04/18/2019 12:41:18 Congestive heart failure 52676382 I50.9 Stable without over fluid retention. Continue furosemide . Monitor. Hyperlipidemia 73820086 E78.2 He has stopped atorvastat in due to leg cramp. Restart at lower dose of 10mg qd with coq10. Essential hypertension 04925039 I10 Blood pressure is acceptable and to continue medication s, encourage to stay physically active as tolerate. Coronary arteriosclerosis 87162232 I25.10 Stable without episodes and to continue monitor. Discuss risk modificati on. FU in 6mo. Generalize d ischemic myocardial dysfunction 902570237 I25.5 Stable, continue furosemide . Repeat echocardio gram to assess LVEF, will call with result and advice. Overweight 182942621 E66 .3 Review weight reduction strategy, encouragem ent and support provided. Pain in right knee 60640 49686 52136 M25.[address] Lopez, cardiac clearance letter sent via [employer]. [id number] ABDIRASHID CHRISTIE MD [address] [facility] [address] [place] [address] 08/01/2019 11:12:20 08/01/2019 12:09:55 Coronary arteriosclerosis 76928112 I25.10 Stable with ASA and to continue medication and monitor. Preop ECG today shows sinus rhythm with PVCs and acceptable heart rate. Discuss risk modificati on. FU in 6mo. Congestive heart failure 92741210 I50.9 Stable with acceptable blood pressure and no signs of fluid retention, review risk of CHF exacerbati on. Continue furosemide prn. Monitor. Essential hypertension 16145146 I10 Blood pressure is stable and to continue medication s. Encourage to stay physically active as tolerate. Hyperlipidemia 24418260 E78.2 Tolerates low dose of atorvastat in with coq10 and to continue. Repeat lab annually. Generalize d ischemic myocardial dysfunction 112299740 I25.5 Stable, monitor. Overweight 193260016 E66 .3 Review weight reduction strategy, encouragem ent and support provided. Pain in right knee 68281 90377 34916 M25.[address] Lopez, cardiac clearance letter sent via [employer]. [id number] SOFI HEART MD [address] [place] [address] 04/03/2021 08:47:23 04/03/2021 09:48:13 Abdominal aortic aneurysm without rupture 89962143 I71.4 Status post endovascul ar repair. Overall [...] from the procedure for a baseline CTA [id number] SOFI HEART MD [address] [place] [address] 04/13/2021 14:04:32 04/13/2021 15:31:55 Abdominal aortic aneurysm without rupture 76387039 I71.4 Status post endovascul ar repair. Overall progressin g satisfacto rily. Cobb were removed. Patient at this point is cleared to resume all of his physical activities . Within the next 2 to 4 weeks a baseline CTA of the abdomen pelvis will be obtained. Depending those findings further recommenda tions will follow [id number] ABDIRASHID CHRISTIE MD [address] [place] [address] 04/24/2021 11:26:37 04/24/2021 12:24:04 Coronary arteriosclerosis 93475941 I25.10 Stable without episodes. Discuss risk modificati on. Congestive heart failure 62715908 I50.9 Stable with medication s, review risk of CHF exacerbati on. Essential hypertension 58126213 I10 Blood pressure is stable and to continue medication s. Encourage to stay physically active as tolerate. Hyperlipidemia 28060866 E78.2 Tolerates low dose of atorvastat in with coq10 and to continue. Repeat lab annually. Generalize d ischemic myocardial dysfunction 051176623 I25.5 Will repeat echocardio gram. Continue medication s. FU in 2 m, consider AICD if EF is still low. Overweight 351247758 E66 .3 Review weight reduction strategy, encouragem ent and support provided. [id number] ABDIRASHID CHRISTIE MD [address] [place] [address] 07/01/2021 16:00:14 07/01/2021 17:40:07 Hyperlipidemia 03737013 E78.2 Stable and to continue medication s. Repeat lab annually. Essential hypertension 72453787 I10 Blood pressure is good, monitor. Encourage to stay physically active as tolerate. Coronary arteriosclerosis 40365231 I25.10 Stable as he tolerates daily physical activities . Review and encourage to report back if having sxs. Discuss risk modificati on. FU in 3m. Congestive heart failure 07900139 I50.9 Stable edema, continue monitor, review risk of CHF exacerbati on. Generalize d ischemic myocardial dysfunction 115417008 I25.5 Result of the echocardio gram reviewed, EF 38%, continue current medication s. Overweight 364635456 E66 .3 Review weight reduction strategy, encouragem ent and support provided. Health Concerns Section Related Observation LastModified by Organization Detai ls LastModified Time None Recorded Concern Status LastModified by Organization Details LastModified Time None Recorded Advance Directives Directive None Recorded Payers Insurance Date Sequence Insurance Name Policy Number Policy [place] Covered Member ID [place] Member ID Guarantor Name 09/13/2024 1 [place] José Basurto [id number] José Basurto 05/21/2023 2 [employer] (MEDICARE SUPPLEMENT) José Basurto [id number] José Basurto 05/21/2023 2 INTERFACE REVIEW REQUIRED José Basurto [id number] José Basurto 05/21/2023 2 [employer] - LOCAL 150 (SECONDARY) José Basurto [id number] José Basurto Notes Date Note Type Note [...] baseline. Weight is stable. ABDIRASHID CHRISTIE MD [address], [place], [address], [address] 08/01/2019 12:09:45 04/03/2021 text/html Patient is a 76-year-old gentleman who approximately a week ago underwent an endovascular peripheral infrarenal abdominal aortic aneurysm. Appears to be doing well. However he did develop some erythema at the site of the groin incisions. No fevers no chills. Slight clear drainage. No foul order. No purulence. Some difficulty ambulating due to overall debility. SOFI HEART MD [address] [place] [address], [address], [address] 04/03/2021 10:09:26 04/13/2021 text/html Patient is [...] does complain of constipation. SOFI HEART MD [address] [place] [address], [address], [address] 04/13/2021 17:05:53 04/24/2021 text/html Mr Basurto comes in for follow up of CAD s/p CABG 3 vessel in 08/2018, ischemic cardiomyopathy, CHF, HTN, HLD and overweight. Shortness of breath and limited walking, weight is stable, edema is stable. No palpitations. ABDIRASHID CHRISTIE MD [address], [place], [address], [address] 04/24/2021 12:27:46 07/01/2021 text/html Mr Basurto [...] is taking at home. ABDIRASHID CHRISTIE MD [address] [facility], [place], [address], [facility] [place] 07/01/2021 17:19:37
--- OUTSIDE RECORDS SUMMARY | 2024-11-30 14:44 | XMS_ITS | Data Portability ---
Author Organization [place] - [employer], [employer], [facility] Address [address] [place] [address] Care Team Providers Care [employer] Name Role Phone CAMERON YAP Primary Care Provider [phone] CAMERON YAP Referring Provider FRANCISCO WOODY Referring Provider [phone] Assessment Encounter Date Assessment Date Assessment LastModified [...] 2015 016 [address] [id number], [address] [place], [address], 6 11:32:17 Cheratussi n AC 10 mg-100 mg/5 mL oral liquid 2015 016 [address] [id number] [facility], [address] [place], [address], 6 11:32:17 ceftriaxon e 1 gram solution for injection 2015 016 t[place]ari Not available 6 11:32:17 Patient TargetsNo targets recorded. Patient Instructions Encounter Date Encounter Id Patient Instructions Last Modified By Organization Details Last Modified Time 08/20/2015 [id number] bronchitis: care instructions tcalamari Not available 08/20/2015 [...] Address Organization Details Recorded Time Hypertensive disorder [id number] Active Elsa Gabriel [facility] 6 08:24:26 Problem Notes None recorded. Procedures Surgical History Date Name Laterality Status Provider Name and Address Organization Details Recorded Time 5 Foot [facility] 08/20/2015 08:23:02 Imaging Results None recorded. Procedure [...] % 96 % 33.4 kg/m2 98.1 [degF] 347894. 13758 g 71 /min 175.26 cm 140 mm[Hg] 60 mm[Hg] Sinai Smith [facility] 6 08:49:28 Social History Question Answer Notes LastModified by [employer] ion Details LastModified Time Tobacco Smoking Status Current Every Day Smoker Elsa cardoza [facility] 08/20/2015 08:24:26 Which Illicit Or Recreational Drugs [...] SNOMED-CT Code Diagnosis ICD10 Code Diagnosis Note [id number] ROSHAN Temple G [facility] [address] [place] [address] 08/20/2015 08:01:06 08/20/2015 09:34:57 Acute bronchitis 91906759 J20.9 Health Concerns Section Related Observation LastModified by Organization Detai ls LastModified Time None Recorded Concern Status LastModified by Organization Details LastModified Time None Recorded Advance Directives Directive None Recorded Payers Insurance Date Sequence Insurance Name Policy Number Policy [place] Covered Member ID [place] Member ID Guarantor Name 08/20/2015 2 [employer] (MEDICARE SUPPLEMENT) José Basurto [id number] José Basurto 04/07/2020 1 [place] José Basurto Jr [id number] José Basurto 08/20/2015 2 [place] José Basurto Jr [id number] José Basurto Notes Date Note Type Note Provider Name and Address Organization Details Recorded Time 08/20/2015 text/html Cough / ColdReported bypatient.Reason for visit:acute complaint Quality:productive ;deep;hacky Sputum Quality:yellow;whi te Severity:moderate Duration:intermitt ent Onset/Timin days ago Alleviating factors:nothing helps Aggravating factors:lying down Associated Symptoms:congestio n;cold/flu like symptoms;sore throat(last night); no fever; no post nasal drip ROSHAN Temple [address] [facility], [place], [address], [facility] 08/20/2015 11:32:23
--- OUTSIDE RECORDS SUMMARY | 2024-11-30 14:44 | XMS_ITS | Data Portability ---
Author Organization [facility] & TREVON Martinez ADMIN Address [address] [place] [id number] Care Team Providers Care Investment Officer Name Role Phone KIRSTY MENDOZA Primary Care Provider [phone] Assessment No assessment recorded. Plan of Treatment Reminders Order Date Submit Date Provider Last Modified By Organization Details Last Modified Time Details Appointments Medicare Annual Wellness 30min 2024 08:30A M Kirsty Mendoza MD Not available Not available Not available Lab PSA, total, serum or plasma 2023 024 ELIANA [facility], [address], [address], [place], [address], 12/15/2023 08:23:59 CMP, serum or plasma 2023 024 ELIANA [facility], [address], [address], [place], [address], 12/15/2023 08:23:57 lipid panel, serum 2023 024 ELIANA [facility], [address], [address], [place], [address], 12/15/2023 08:23:57 CBC w/ auto diff 2023 024 ELIANA [facility], [address], [address], [place], [address], 12/15/2023 08:23:56 thyroid panel, serum 2023 024 ELIANA [facility], [address], [address], [place], [address], 12/15/2023 08:23:58 CMP, serum or plasma 2022 023 ELIANA [facility], [address], [address], [place], [address], 12/01/2022 04:09:02 PSA, total, serum or plasma 2022 023 ELIANA [facility], [address], [address], [place], [address], 12/01/2022 04:09:03 CBC w/ auto diff 2022 023 ELIANA [facility], [address], [address], [place], [address], 12/01/2022 04:09:00 CMP, serum or plasma 2022 023 [email or web address] [facility], [address], [address], [place], [address], 12/08/2022 10:12:09 lipid panel, serum 2022 023 ELIANA [facility], [address], [address], [place], [address], 12/01/2022 04:09:02 vitamin B12 + folate, serum or blood 2021 022 ELIANA [facility], [address], [address], [place], [address], 03/24/2022 08:20:24 Referral None recorded. Procedures None recorded. Surgeries None recorded. Imaging pharmacol ogic nuclear stress test 2023 024 [email or web address] [facility], [address], [place], [address], 03/28/2024 11:57:47 LDCT, chest, for lung cancer screening 2022 023 [email or web address] [facility] ([facility]), [address], [place], [address], 01/26/2023 16:58:12 Medication Orders Lasix 40 mg tablet 2023 024 [facility], [address] [place] [address], [address], 12/06/2023 10:04:25 potassium chloride ER 10 mEq tablet,ex tended release 2023 024 [facility], [address] [place] [address], [address], 12/06/2023 10:04:26 Xarelto 20 mg tablet 2023 024 [facility], [address] [place] [address], [address], 12/06/2023 10:04:24 Advair Diskus 250 mcg-50 mcg/dose powder for inhalatio n 2023 024 [facility], [address] [place] [address], [address], 12/06/2023 10:04:29 Wixela Inhub 100 mcg-50 mcg/dose powder for inhalatio n [address] [facility], [address] [place] [address], [address], 12/14/2023 10:11:45 duloxetin e 60 mg capsule,d elayed release 2023 024 [facility], [address] [place] [address], [address], 12/06/2023 09:10:56 triamcino lone acetonide 0.1 % topical ointment [email or web address], [address] [place], [address], 10/14/2023 11:11:19 ketoconaz ole 200 mg tablet [email or web address], [address] [place] [address], [address], 11/30/2022 10:16:25 Ozempic 0.25 mg or 0.5 mg (2 mg/1.5 mL) subcutane ous pen injector [email or web address], [address] [place] [address], [id number], 11/30/2022 10:16:04 Patient TargetsNo targets recorded. Patient Instructions Encounter Date Encounter Id Patient Instructions Last Modified By Organization Details Last Modified Time 11/30/2022 [id number] advance directives: care instructions [email or web address] Not available 11/30/2022 11:20:29 Health Maintenance Recommendations: (5-10 year screening/prevent ion plan) [email or web address] Not available 11/30/2022 10:13:54 12/14/2023 [id number] advance directives: care instructions [email or web address] Not available 12/14/2023 10:23:41 Health Maintenance Recommendations: (5-10 year screening/prevent ion plan) [email or web address] Not available 12/14/2023 09:54:18 Reason for Referral None Reported. Results Created Date Observation Date Name Description Value Unit Range Abnormal Flag Note LastModifiedBy Organization Detail LastModifiedTime 03/23/2003/24/2022 VITAM IN B12 AND FOLAT E vitamin B12 609 pg/mL 232-12 45 Not Available [facility] ([facility]) [address] [facility], [place], [address], 03/24/2022 08:20:24 03/23/2003/24/2022 VITAM IN B12 AND FOLAT E folate (folic acid), serum 19.8 NG/mL >3.0 A serum folat e vicki ntrat ion of less than 3.1 ng/mL is consi dered to repre sent clini cade defic iency . Not Available [facility] ([facility]) [address] [facility], [place], [address], 03/24/2022 08:20:24 12/01/19 23 12/01/2022 CBC WITH DIFFE RENTI AL/PL ATELE T WBC 7.6 x10e3 /uL 3.4-10 .8 Not Available [facility] ([facility]) [address] [place], [address], 12/01/2022 04:09:00 12/01/19 23 12/01/2022 CBC WITH DIFFE RENTI AL/PL ATELE T RBC 4.72 x10e6 /uL 4.14-5 .80 Not Available [facility] ([facility]) [address] [place], [address], 12/01/2022 04:09:00 12/01/19 23 12/01/2022 CBC WITH DIFFE RENTI AL/PL ATELE T hemoglobin 13.8 g/dL 13.0-1 7.7 Not Available [facility] ([facility]) [address] [place], [address], 12/01/2022 04:09:00 12/01/19 23 12/01/2022 CBC WITH DIFFE RENTI AL/PL ATELE T hematocrit 41.5 % 37.5-5 1.0 Not Available [facility] ([facility]) [address] [place], [address], 12/01/2022 04:09:00 12/01/19 23 12/01/2022 CBC WITH DIFFE RENTI AL/PL ATELE T MCV 88 fL 79-97 Not Available [facility] ([facility]) [address] [place], [address], 12/01/2022 04:09:00 12/01/19 23 12/01/2022 CBC WITH DIFFE RENTI AL/PL ATELE T MCH 29.2 pg 26.6-3 3.0 Not Available [facility] ([facility]) [address] [facility], [place], [address], 12/01/2022 04:09:00 12/01/19 23 12/01/2022 CBC WITH DIFFE RENTI AL/PL ATELE T MCHC 33.3 g/dL 31.5-3 5.7 Not Available [facility] ([facility]) [address] [facility], [place], [address], 12/01/2022 04:09:00 12/01/19 23 12/01/2022 CBC WITH DIFFE RENTI AL/PL ATELE T RDW 14.0 % 11.6-1 5.4 Not Available [facility] ([facility]) [address] [facility], [place], [address], 12/01/2022 04:09:00 12/01/1912/01/2022 CBC WITH DIFFE RENTI AL/PL ATELE T platelets 176 x10e3 /uL 150-45 0 Not Available [facility] ([facility]) [address] [facility], [place], [address], 12/01/2022 04:09:00 12/01/19 23 12/01/2022 CBC WITH DIFFE RENTI AL/PL ATELE T neutrophils 64 % not estab. Not Available [facility] ([facility]) [address] [facility], [place], [address], 12/01/2022 04:09:00 12/01/19 23 12/01/2022 CBC WITH DIFFE RENTI AL/PL ATELE T lymphs 20 % not estab. Not Available [facility] ([facility]) [address] [facility], [place], [address], 12/01/2022 04:09:00 12/01/19 23 12/01/2022 CBC WITH DIFFE RENTI AL/PL ATELE T monocytes 8 % not estab. Not Available [facility] ([facility]) [address] [facility], [place], [address], 12/01/2022 04:09:00 12/01/19 23 12/01/2022 CBC WITH DIFFE RENTI AL/PL ATELE T eos 7 % not estab. Not Available [facility] ([facility]) [address] [facility], [place], [address], 12/01/2022 04:09:00 12/01/19 23 12/01/2022 CBC WITH DIFFE RENTI AL/PL ATELE T basos 1 % not estab. Not Available [facility] ([facility]) [address] [place], [address], 12/01/2022 04:09:00 12/01/19 23 12/01/2022 CBC WITH DIFFE RENTI AL/PL ATELE T immature cells RUSSIAN LANGUAGE PROFESSOR Not Available [facility] ([facility]) [address] [place], [address], 12/01/2022 04:09:00 12/01/19 23 12/01/2022 CBC WITH DIFFE RENTI AL/PL ATELE T neutrophils (absolute) 4.9 x10e3 /uL 1.4-7. 0 Not Available [facility] ([facility]) [address] [place], [address], 12/01/2022 04:09:00 12/01/1912/01/2022 CBC WITH DIFFE RENTI AL/PL ATELE T lymphs (absolute) 1.5 x10e3 /uL 0.7-3. 1 Not Available [facility] ([facility]) [address] [place], [address], 12/01/2022 04:09:00 12/01/19 23 12/01/2022 CBC WITH DIFFE RENTI AL/PL ATELE T monocytes(ab solute) 0.6 x10e3 /uL 0.1-0. 9 Not Available [facility] ([facility]) [address] [facility], [place], [address], 12/01/2022 04:09:00 12/01/19 23 12/01/2022 CBC WITH DIFFE RENTI AL/PL ATELE T eos (absolute) 0.5 x10e3 /uL 0.0-0. 4 above high normal Not Available [facility] ([facility]) [address] [place], [address], 12/01/2022 04:09:00 12/01/19 23 12/01/2022 CBC WITH DIFFE RENTI AL/PL ATELE T baso (absolute) 0.1 x10e3 /uL 0.0-0. 2 Not Available [facility] ([facility]) [address] [facility], [place], [address], 12/01/2022 04:09:00 12/01/19 23 12/01/2022 CBC WITH DIFFE RENTI AL/PL ATELE T immature granulocytes 0 % not estab. Not Available [facility] ([facility]) [address] [facility], [place], [address], 12/01/2022 04:09:00 12/01/1912/01/2022 CBC WITH DIFFE RENTI AL/PL ATELE T immature grans (abs) 0.0 x10e3 /uL 0.0-0. 1 Not Available [facility] ([facility]) [address] [place], [address], 12/01/2022 04:09:00 12/01/19 23 12/01/2022 CBC WITH DIFFE RENTI AL/PL ATELE T NRBC RUSSIAN LANGUAGE PROFESSOR Not Available [facility] ([facility]) [address] [place], [address], 12/01/2022 04:09:00 12/01/19 23 12/01/2022 CBC WITH DIFFE RENTI AL/PL ROSALIND T hematology comments: RUSSIAN LANGUAGE PROFESSOR Not Available [facility] ([facility]) [address] [facility], [place], [address], 12/01/2022 04:09:00 12/01/19 23 12/01/2022 COMP. METAB OLIC PANEL (14) glucose 99 mg/dL 70-99 Not Available [facility] ([facility]) [address] [facility], [place], [address], 12/01/2022 04:09:02 12/01/19 23 12/01/2022 COMP. METAB OLIC PANEL (14) BUN 13 mg/dL 8-27 Not Available [facility] ([facility]) [address] [facility], [place], [address], 12/01/2022 04:09:02 12/01/19 23 12/01/2022 COMP. METAB OLIC PANEL (14) creatinine 1.07 mg/dL 0.76-1 .27 Not Available [facility] ([facility]) [address] [place], [address], 12/01/2022 04:09:02 12/01/19 23 12/01/2022 COMP. METAB OLIC PANEL (14) eGFR 71 mL/mi n/1.7 3 >59 Not Available [facility] ([facility]) [address] [facility], [place], [address], 12/01/2022 04:09:02 12/01/19 23 12/01/2022 COMP. METAB OLIC PANEL (14) BUN/creatini ne ratio 12 10-24 Not Available [facility] ([facility]) [address] [place], [address], 12/01/2022 04:09:02 12/01/19 23 12/01/2022 COMP. METAB OLIC PANEL (14) sodium 138 mmol/ L 134-14 4 Not Available [facility] ([facility]) [address] [place], [address], 12/01/2022 04:09:02 12/01/19 23 12/01/2022 COMP. METAB OLIC PANEL (14) potassium 4.3 mmol/ L 3.5-5. 2 Not Available [facility] ([facility]) [address] [place], [address], 12/01/2022 04:09:02 12/01/19 23 12/01/2022 COMP. METAB OLIC PANEL (14) chloride 102 mmol/ L 96-106 Not Available [facility] ([facility]) [address] [place], [address], 12/01/2022 04:09:02 12/01/19 23 12/01/2022 COMP. METAB OLIC PANEL (14) carbon dioxide, total 24 mmol/ L 20-29 Not Available [facility] ([facility]) [address] [place], [address], 12/01/2022 04:09:02 12/01/19 23 12/01/2022 COMP. METAB OLIC PANEL (14) calcium 9.2 mg/dL 8.6-10 .2 Not Available [facility] ([facility]) [address] [facility] [place], [address], 12/01/2022 04:09:02 12/01/19 23 12/01/2022 COMP. METAB OLIC PANEL (14) protein, total 7.0 g/dL 6.0-8. 5 Not Available [facility] ([facility]) [address] [facility] [place], [address], 12/01/2022 04:09:02 12/01/19 23 12/01/2022 COMP. METAB [...] 4.6 3.6 - 4.6 Not Available [facility] ([facility]) [address] [place], [address], 12/01/2022 04:09:02 12/01/19 23 12/01/2022 COMP. METAB OLIC PANEL (14) globulin, total 3.2 g/dL 1.5-4. 5 Not Available [facility] ([facility]) [address] [place], [address], 12/01/2022 04:09:02 12/01/19 23 12/01/2022 COMP. METAB OLIC PANEL (14) A/G ratio 1.2 1.2-2. 2 Not Available [facility] ([facility]) [address] [place], [address], 12/01/2022 04:09:02 12/01/19 23 12/01/2022 COMP. METAB OLIC PANEL (14) bilirubin, total 0.4 mg/dL 0.0-1. 2 Not Available [facility] ([facility]) [address] [facility] [place], [address], 12/01/2022 04:09:02 12/01/19 23 12/01/2022 COMP. METAB OLIC PANEL (14) alkaline phosphatase 116 IU/L 44-121 Not Available [facility] ([facility]) [address] [place], [address], 12/01/2022 04:09:02 12/01/19 23 12/01/2022 COMP. METAB OLIC PANEL (14) AST (SGOT) 17 IU/L 0-40 Not Available [facility] ([facility]) [address] [facility] [place], [address], 12/01/2022 04:09:02 12/01/19 23 12/01/2022 COMP. METAB OLIC PANEL (14) ALT (SGPT) 7 IU/L 0-44 Not Available [facility] ([facility]) [address] [facility] [place], [address], 12/01/2022 04:09:02 12/01/19 23 12/01/2022 LIPID PANEL cholesterol, total 143 mg/dL 100-19 9 Not Available [facility] ([facility]) [address] [facility] [place], [address], 12/01/2022 04:09:02 12/01/19 23 12/01/2022 LIPID PANEL triglyceride s 110 mg/dL 0-149 Not Available [facility] ([facility]) [address] [facility] [place] [place], [address], 12/01/2022 04:09:02 12/01/19 23 12/01/2022 LIPID PANEL HDL cholesterol 24 mg/dL >39 below low normal Not Available [facility] ([facility]) [address] [facility] [place], [address], 12/01/2022 04:09:02 12/01/19 23 12/01/2022 LIPID PANEL VLDL cholesterol cade 21 mg/dL 5-40 Not Available [facility] ([facility]) [address] [facility], [place], [address], 12/01/2022 04:09:02 12/01/19 23 12/01/2022 LIPID PANEL LDL chol calc ([facility]) 98 mg/dL 0-99 Not Available [facility] ([facility]) [address] [facility], [place], [address], 12/01/2022 04:09:02 12/01/19 23 12/01/2022 LIPID PANEL comment: RUSSIAN LANGUAGE PROFESSOR Not Available [facility] ([facility]) [address] [facility], [place], [address], 12/01/2022 04:09:02 12/01/19 23 12/01/2022 PROST ATE-S [...] t be inter prete d as absol pilot point evide nce of the prese nce or absen ce of david hayes se. Not Available [facility] ([facility]) [address] [facility], [place], [address], 12/01/2022 04:09:03 12/14/19 24 12/15/2023 CBC WITH DIFFE RENTI AL/PL ATELE T WBC 8.1 x10e3 /uL 3.4-10 .8 Not Available [facility] ([facility]) [address] [facility], [place], [address], 12/15/2023 08:23:56 12/14/19 24 12/15/2023 CBC WITH DIFFE RENTI AL/PL ATELE T RBC 5.01 x10e6 /uL 4.14-5 .80 Not Available [facility] ([facility]) [address] [facility], [place], [address], 12/15/2023 08:23:56 12/14/19 24 12/15/2023 CBC WITH DIFFE RENTI AL/PL ATELE T hemoglobin 14.3 g/dL 13.0-1 7.7 Not Available [facility] ([facility]) [address] [facility], [place], [address], 12/15/2023 08:23:56 12/14/19 24 12/15/2023 CBC WITH DIFFE RENTI AL/PL ATELE T hematocrit 44.1 % 37.5-5 1.0 Not Available [facility] ([facility]) [address] [place], [address], 12/15/2023 08:23:56 12/14/19 24 12/15/2023 CBC WITH DIFFE RENTI AL/PL ATELE T MCV 88 fL 79-97 Not Available [facility] ([facility]) [address] [place], [address], 12/15/2023 08:23:56 12/14/19 24 12/15/2023 CBC WITH DIFFE RENTI AL/PL ATELE T MCH 28.5 pg 26.6-3 3.0 Not Available [facility] ([facility]) [address] [place], [address], 12/15/2023 08:23:56 12/14/19 24 12/15/2023 CBC WITH DIFFE RENTI AL/PL ATELE T MCHC 32.4 g/dL 31.5-3 5.7 Not Available [facility] ([facility]) [address] [facility], [place], [address], 12/15/2023 08:23:56 12/14/19 24 12/15/2023 CBC WITH DIFFE RENTI AL/PL ATELE T RDW 13.8 % 11.6-1 5.4 Not Available [facility] ([facility]) [address] [facility], [place], [address], 12/15/2023 08:23:56 12/14/19 24 12/15/2023 CBC WITH DIFFE RENTI AL/PL ATELE T platelets 192 x10e3 /uL 150-45 0 Not Available [facility] ([facility]) [address] [facility], [place], [address], 12/15/2023 08:23:56 12/14/19 24 12/15/2023 CBC WITH DIFFE RENTI AL/PL ATELE T neutrophils 67 % not estab. Not Available [facility] ([facility]) [address] [facility], [place], [address], 12/15/2023 08:23:56 12/14/19 24 12/15/2023 CBC WITH DIFFE RENTI AL/PL ATELE T lymphs 19 % not estab. Not Available [facility] ([facility]) [address] [facility], [place], [address], 12/15/2023 08:23:56 12/14/19 24 12/15/2023 CBC WITH DIFFE RENTI AL/PL ATELE T monocytes 7 % not estab. Not Available [facility] ([facility]) [address] [facility], [place], [address], 12/15/2023 08:23:56 12/14/19 24 12/15/2023 CBC WITH DIFFE RENTI AL/PL ATELE T eos 6 % not estab. Not Available [facility] ([facility]) [address] [facility], [place], [address], 12/15/2023 08:23:56 12/14/19 24 12/15/2023 CBC WITH DIFFE RENTI AL/PL ATELE T basos 1 % not estab. Not Available [facility] ([facility]) [address] [place], [address], 12/15/2023 08:23:56 12/14/19 24 12/15/2023 CBC WITH DIFFE RENTI AL/PL ATELE T immature cells RUSSIAN LANGUAGE PROFESSOR Not Available [facility] ([facility]) [address] [place], [address], 12/15/2023 08:23:56 12/14/19 24 12/15/2023 CBC WITH DIFFE RENTI AL/PL ATELE T neutrophils (absolute) 5.3 x10e3 /uL 1.4-7. 0 Not Available [facility] ([facility]) [address] [place], [address], 12/15/2023 08:23:56 12/14/19 24 12/15/2023 CBC WITH DIFFE RENTI AL/PL ATELE T lymphs (absolute) 1.6 x10e3 /uL 0.7-3. 1 Not Available [facility] ([facility]) [address] [place], [address], 12/15/2023 08:23:56 12/14/19 24 12/15/2023 CBC WITH DIFFE RENTI AL/PL ATELE T monocytes(ab solute) 0.6 x10e3 /uL 0.1-0. 9 Not Available [facility] ([facility]) [address] [place], [address], 12/15/2023 08:23:56 12/14/19 24 12/15/2023 CBC WITH DIFFE RENTI AL/PL ATELE T eos (absolute) 0.5 x10e3 /uL 0.0-0. 4 above high normal Not Available [facility] ([facility]) [address] [place], [address], 12/15/2023 08:23:56 12/14/19 24 12/15/2023 CBC WITH DIFFE RENTI AL/PL ATELE T baso (absolute) 0.1 x10e3 /uL 0.0-0. 2 Not Available [facility] ([facility]) [address] [facility], [place], [address], 12/15/2023 08:23:56 12/14/19 24 12/15/2023 CBC WITH DIFFE RENTI AL/PL ATELE T immature granulocytes 0 % not estab. Not Available [facility] ([facility]) [address] [facility], [place], [address], 12/15/2023 08:23:56 12/14/19 24 12/15/2023 CBC WITH DIFFE RENTI AL/PL ATELE T immature grans (abs) 0.0 x10e3 /uL 0.0-0. 1 Not Available [facility] ([facility]) [address] [facility], [place], [address], 12/15/2023 08:23:56 12/14/19 24 12/15/2023 CBC WITH DIFFE RENTI AL/PL ATELE T NRBC RUSSIAN LANGUAGE PROFESSOR Not Available [facility] ([facility]) [address] [facility], [place], [address], 12/15/2023 08:23:56 12/14/19 24 12/15/2023 CBC WITH DIFFE RENTI AL/PL ATELE T hematology comments: RUSSIAN LANGUAGE PROFESSOR Not Available [facility] ([facility]) [address] [facility], [place], [address], 12/15/2023 08:23:56 12/14/19 24 12/15/2023 COMP. METAB OLIC PANEL (14) glucose 99 mg/dL 70-99 Not Available [facility] ([facility]) [address] [facility], [place], [address], 12/15/2023 08:23:57 12/14/19 24 12/15/2023 COMP. METAB OLIC PANEL (14) BUN 23 mg/dL 8-27 Not Available [facility] ([facility]) [address] [facility], [place], [address], 12/15/2023 08:23:57 12/14/19 24 12/15/2023 COMP. METAB OLIC PANEL (14) creatinine 1.20 mg/dL 0.76-1 .27 Not Available [facility] ([facility]) [address] [facility], [place], [address], 12/15/2023 08:23:57 12/14/19 24 12/15/2023 COMP. METAB OLIC PANEL (14) eGFR 62 mL/mi n/1.7 3 >59 Not Available [facility] ([facility]) [address] [facility], [place], [address], 12/15/2023 08:23:57 12/14/19 24 12/15/2023 COMP. METAB OLIC PANEL (14) BUN/creatini ne ratio 19 10-24 Not Available [facility] ([facility]) [address] [facility], [place], [address], 12/15/2023 08:23:57 12/14/19 24 12/15/2023 COMP. METAB OLIC PANEL (14) sodium 139 mmol/ L 134-14 4 Not Available [facility] ([facility]) [address] [place], [address], 12/15/2023 08:23:57 12/14/19 24 12/15/2023 COMP. METAB OLIC PANEL (14) potassium 4.2 mmol/ L 3.5-5. 2 Not Available [facility] ([facility]) [address] [facility], [place], [address], 12/15/2023 08:23:57 12/14/19 24 12/15/2023 COMP. METAB OLIC PANEL (14) chloride 99 mmol/ L 96-106 Not Available [facility] ([facility]) [address] [facility] [place], [address], 12/15/2023 08:23:57 12/14/19 24 12/15/2023 COMP. METAB OLIC PANEL (14) carbon dioxide, total 22 mmol/ L 20-29 Not Available [facility] ([facility]) [address] [place], [address], 12/15/2023 08:23:57 12/14/19 24 12/15/2023 COMP. METAB OLIC PANEL (14) calcium 9.3 mg/dL 8.6-10 .2 Not Available [facility] ([facility]) [address] [place], [address], 12/15/2023 08:23:57 12/14/19 24 12/15/2023 COMP. METAB OLIC PANEL (14) protein, total 7.2 g/dL 6.0-8. 5 Not Available [facility] ([facility]) [address] [facility] [place], [address], 12/15/2023 08:23:57 12/14/19 24 12/15/2023 COMP. METAB OLIC PANEL (14) albumin 4.0 g/dL 3.8-4. 8 Not Available [facility] ([facility]) [address] [facility] [place], [address], 12/15/2023 08:23:57 12/14/19 24 12/15/2023 COMP. METAB OLIC PANEL (14) globulin, total 3.2 g/dL 1.5-4. 5 Not Available [facility] ([facility]) [address] [facility] [place], [address], 12/15/2023 08:23:57 12/14/19 24 12/15/2023 COMP. METAB OLIC PANEL (14) bilirubin, total 0.4 mg/dL 0.0-1. 2 Not Available [facility] ([facility]) [address] [facility], [place], [address], 12/15/2023 08:23:57 12/14/19 24 12/15/2023 COMP. METAB OLIC PANEL (14) alkaline phosphatase 120 IU/L 44-121 Not Available [facility] ([facility]) [address] [facility], [place], [address], 12/15/2023 08:23:57 12/14/19 24 12/15/2023 COMP. METAB OLIC PANEL (14) AST (SGOT) 16 IU/L 0-40 Not Available [facility] ([facility]) [address] [facility], [place], [address], 12/15/2023 08:23:57 12/14/19 24 12/15/2023 COMP. METAB OLIC PANEL (14) ALT (SGPT) 10 IU/L 0-44 Not Available [facility] ([facility]) [address] [facility], [place], [address], 12/15/2023 08:23:57 12/14/19 24 12/15/2023 LIPID PANEL cholesterol, total 142 mg/dL 100-19 9 Not Available [facility] ([facility]) [address] [facility], [place], [address], 12/15/2023 08:23:57 12/14/19 24 12/15/2023 LIPID PANEL triglyceride s 87 mg/dL 0-149 Not Available [facility] ([facility]) [address] [place], [address], 12/15/2023 08:23:57 12/14/19 24 12/15/2023 LIPID PANEL HDL cholesterol 30 mg/dL >39 below low normal Not Available [facility] ([facility]) [address] [place], [address], 12/15/2023 08:23:57 12/14/19 24 12/15/2023 LIPID PANEL VLDL cholesterol cade 17 mg/dL 5-40 Not Available [facility] ([facility]) [address] [place], [address], 12/15/2023 08:23:57 12/14/19 24 12/15/2023 LIPID PANEL LDL chol calc ([facility]) 95 mg/dL 0-99 Not Available [facility] ([facility]) [address] [place], [address], 12/15/2023 08:23:57 12/14/19 24 12/15/2023 LIPID PANEL LDL calc comment: [employer] Not Available [facility] ([facility]) [address] [place], [address], 12/15/2023 08:23:57 12/14/19 24 12/15/2023 THYRO ID PANEL WITH TSH TSH 1.220 uIU/m L 0.450- 4.500 Not Available [facility] ([facility]) [address] [place], [address], 12/15/2023 08:23:58 12/14/19 24 12/15/2023 THYRO ID PANEL WITH TSH thyroxine (T4) 7.2 ug/dL 4.5-12 .0 Not Available [facility] ([facility]) [address] [place], [address], 12/15/2023 08:23:58 12/14/19 24 12/15/2023 THYRO ID PANEL WITH TSH T3 uptake 31 % 24-39 Not Available [facility] ([facility]) [address] [place], [address], 12/15/2023 08:23:58 12/14/19 24 12/15/2023 THYRO ID PANEL WITH TSH free thyroxine index 2.2 1.2-4. 9 Not Available [facility] ([facility]) [address] [place], [address], 12/15/2023 08:23:58 12/14/19 24 12/15/2023 PROST ATE-S [...] t be inter prete d as absol pilot point evide nce of the prese nce or absen ce of david navarro se. Not Available [facility] ([facility]) [address] [facility], [place], [address], 12/15/2023 08:23:59 04/06/20 22 04/05/2022 MRI, lumba r spine , w/o contr ast No observ ation record ed. [email or web address] [facility] [address] [facility] [address], [place], [address], 04/06/2022 09:48:22 04/26/20 22 04/26/2022 MRI, brain , w/o contr ast No observ ation record ed. [email or web address] [facility] [address] [facility] [address], [place], [address], 05/03/2022 08:24:44 11/25/19 23 10/31/2014 DEXA No observ ation record ed. [email or web address] Not Available 17:09:05 12/15/19 24 12/15/2023 elect jaime irizarry am No observ ation record ed. [facility] [address] [facility] [address], [place], [address], 12/15/2023 16:23:03 12/15/19 24 12/06/2023 elect rocar diogr am No observ ation record ed. [facility] [address], [place], [address], 12/15/2023 16:22:37 03/07/20 24 03/07/2024 XR, chest No observ ation record ed. [address] (Radiology) [address] , [place], [address], 03/09/2024 11:18:01 11/18/19 25 11/16/2024 elect rocar diogr am, routi ne ECG, 12 leads min No observ ation record ed. [address], [place], [address], 11/19/2024 08:56:47 11/18/19 25 11/15/2024 elect rocar diogr am, routi ne ECG, 12 leads min No observ ation record ed. [address], [place], [address], 11/19/2024 08:56:37 Result Notes None recorded. Problems Name Problem SNOMED Code Status Onset Date Resolution Date Notes Provider Name and Address Organization Details Recorded Time Obesity 325333330 Active Bing Couch null, [place] & [place] 2 11:27:47 Degenerati on of lumbar interverte bral disc 12988039 Active Bing Couch [place] 2 11:27:47 Low back pain 913956425 Active 2011 Bing Couch [place] 2 11:27:47 Neuropathy 427587854 Active Bing Couch [place] 2 11:27:47 Pruritic disorder 287705726 Active 2010 Bing Couch [place] 2 11:27:47 Benign essential hypertensi on 7280462 Active 2010 Bing Couch [place] 2 11:27:47 First degree atrioventr icular block 444710174 Active Bing Baronech [place] 2 11:27:47 Chronic pain 75663988 Active Bing Lizabethch [place] 2 11:27:47 Generalize d anxiety disorder 06790542 Active 2011 Bing Lizabethch [place] 2 11:27:47 Long-term current use of drug therapy 190283410 Active Bing Couch [place] 2 11:27:47 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 267214020 Active 2010 Bing Couch [place] 2 11:27:47 Contact dermatitis 09038423 Active 2011 Bing Lizabethch [place] 2 11:27:47 Coronary arterioscl erosis 80730186 Active Bing Couch [place] 2 11:27:47 Disorder of cardiovasc ular system 49995439 Active Bing Couch [place] 2 11:27:47 Acute bronchitis 31352656 Active Bing Couch [place] 2 11:27:47 Hypertensi ve disorder 95358748 Active Bing Couch [place] 2 11:27:47 Kyphosis of thoracic spine 744681664 Active Bing Couch [place] 2 11:27:47 Chronic pain syndrome 268806190 Active Bing Couch [place] 2 11:27:47 Arthritis of right knee 6622087857405 102 Active Bing Couch [place] 2 11:27:47 Coronary arterioscl erosis in [place] artery 9903021465641 Active Bing Couch [place] 2 11:27:47 Chronic obstructiv e pulmonary disease 93960020 Active 2011 Bing Couch [place] 2 11:27:47 Morbid obesity 808083357 Active Bing Couch [place] 2 11:27:48 Arthritis of left knee 4911003721897 104 Active Bing Couch [place] 2 11:27:48 Tobacco dependence syndrome 97889949 Active Bing Couch [place] 2 11:27:48 Eruption 024726626 Active 2010 Bing Couch [place] 2 11:27:48 Abnormal gait 41542023 Active Bing Couch [place] 2 11:27:48 Sinusitis 17278367 Active Bing Couch [place] 2 11:27:48 Osteopenia 725930900 Active Bing Couch [place] 2 11:27:48 Hereditary peripheral neuropathy 94864702 Active 2010 Bing Couch [place] 2 11:27:48 Hyperlipid emia 47911360 Active Bing Couch [place] 2 11:27:48 Injury of tendon 120724275 Active Bing cardoza[place] 2 11:27:48 Aortic aneurysm 80896519 Active 2011 Bing cardoza, [place] 2 11:27:48 Cigarette smoker 48925993 Active 2023 Doron Nichoals MD [address] [place], [address] , [place] 4 09:35:07 Dyspnea 382552356 Active 2023 Doron Nicholas MD [address] [facility] [address] , [place] [facility] [facility] & [place] 4 09:39:15 Coronary atheroscle rosis 826936166 Active 2023 Doron Nicholas MD [address] [facility] [address] , [place] [facility] & [place] 4 09:39:43 Paroxysmal atrial fibrillati on 070123459 Active 2023 Doron Nicholas MD [address] [place], [address] , [place] [facility] & [place] 4 10:01:02 Ischemic congestive cardiomyop athy 694312571 Active 2023 Doron Nicholas MD [address] [place], [address] , [place] [facility] & [place] 4 10:02:51 Notes:Some problems listed i n Document: #[id number] could not be added to this patient's chart. Please review this document and add these problems to the patient's chart manually as needed. Problem Notes None recorded. Procedures Surgical History Date Name Laterality Status Provider Name and Address Organization Details Recorded Time 2 cervical arthrodesis completed Gianna Cordon [place] 11/26/2024 13:52:09 9 CABG completed Luz Maria Garza- [facility] 11/24/2022 16:56:29 8 procedure completed Luz Maria Garza- [facility] [place] [facility] [place] 11/24/2022 16:57:32 repair of tendo achilles completed Luz Maria Garza- [facility] [place] [facility] [place] 11/24/2022 16:55:48 Imaging Results None recorded. Procedure [...] Updated DateTime 4 177.8 cm 34.3 kg/m2 910923. 58 g 98.1 [degF] 96 % 96 % 60 /min 134 mm[Hg] 76 mm[Hg] [facility] 4 11:09:59 Date Recorded Body height Body mass index (BMI) Body weight Body temperature Oxygen saturation Oxygen saturation in Arterial blood by Pulse oximetry Heart rate Systolic blood pressure Diastolic blood pressure Provider Name and Address Organization Details Last Updated DateTime 3 177.8 cm 32.4 kg/m2 349183. 88 g 97.5 [degF] 89 % 89 % 81 /min 124 mm[Hg] 70 mm[Hg] [facility] & [place] 3 10:18:16 Date Recorded Body height Body mass index (BMI) Body weight Oxygen saturation Oxygen saturation in Arterial blood by Pulse oximetry Heart rate Systolic blood pressure Diastolic blood pressure Provider Name and Address Organization Details Last Updated DateTime 4 177.8 cm 33 kg/m2 685775. 25 g 97 % 97 % 41 /min 128 mm[Hg] 78 mm[Hg] Briana Man [facility] & [place] 4 09:13:04 Date Recorded Body height Body mass index (BMI) Body weight Body temperature Oxygen saturation Oxygen saturation in Arterial blood by Pulse oximetry Heart rate Systolic blood pressure Diastolic blood pressure Provider Name and Address Organization Details Last Updated DateTime 4 177.8 cm 32.1 kg/m2 124446. 69 g 97.3 [degF] 96 % 96 % 64 /min 156 mm[Hg] 84 mm[Hg] Bing AVITIA [facility] & [place] 4 10:11:07 Date Recorded Body weight Body mass index (BMI) Body height Body temperature Oxygen saturation Oxygen saturation in Arterial blood by Pulse oximetry Heart rate Systolic blood pressure Diastolic blood pressure Provider Name and Address Organization Details Last Updated DateTime 2 069834. 32 g 35.4 kg/m2 177.8 cm 98.2 [degF] 95 % 95 % 67 /min 120 mm[Hg] 70 mm[Hg] Bing AVITIA [facility] & [place] 2 11:27:32 Social History Question Answer Notes LastModified by Organizat ion Details LastModified Time Tobacco Smoking Status Current Every Day Smoker Bing Vázquez [facility] & [place] 03/23/2022 11:35:49 Do You Have An Advance Directive? Yes [email or web address] Information not available 11/30/2022 Are You Blind Or Do You Have Difficulty Seeing? No [email or web address] Information not available 11/30/2022 What Is Your Level Of Caffeine Consumption? Moderate [email or web address] Information not available 12/06/2023 Are You Deaf Or Do You Have Serious Difficulty Hearing? Yes [email or web address] Information not available 12/14/2023 What Type Of Diet Are You Following? REGULAR [email or web address] Information not available 11/30/2022 Have There Been Any Changes To Your Family Or Social Situation? No Information not available 11/30/2022 In General, Would You Say Your Health Is Good [email or web address] Information not available 12/14/2023 How Would You Describe The Condition Of Your Mouth And Teeth including False Teeth Or Dentures? Fair [email or web address] Information not available 12/14/2023 Each Night, How Many Hours Of Sleep Do You Usually Get? 5-6 Hours Information not available 12/14/2023 Do You Snore Or Has Anyone Told You That You Snore? No [email or web address] Information not available 11/30/2022 In The Past 7 Days, How Often Have You [place] Sleepy During The Daytime? Always [email or web address] Information not available 11/30/2022 Do You Have Chronic Pain? Yes [email or web address] Information not available 11/30/2022 If Yes, Location Of Pain Back [email or web address] Information not available 11/30/2022 In The Past 7 Days, How Would You Rate Your Pain? Moderate Pain(4-6) [email or web address] Information not available 11/30/2022 Are You In A Pain Management Program? No [email or web address] Information not available 11/30/2022 Do You Take Opioids For Your Pain? No [email or web address] Information not available 11/30/2022 How Often Is Stress A Problem For You In Handling Such Things As: Your Health, Your Finances, Your Family And Social Relationships, Your Work? Sometimes [email or web address] Information not available 11/30/2022 How Often Do You Get The Social And Emotional Support You Need: Usually [email or web address] Information not available 11/30/2022 In The Past 7 Days, Did You Need Help From Others To Take Care Of Things Such As Laundry And Housekeep- Ing, Banking, Shopping, Using The Telephone, Food Preparation, Transportation, Or Taking Your Own Medications? Yes [email or web address] Information not available 11/30/2022 Do You Live Alone? No [email or web address] Information not available 11/30/2022 Does Your Home Have Any Fall Risks (un-level Floors, Unfastened Rugs, Poor Lighting, Etc)? No [email or web address] Information not available 11/30/2022 Do You Feel Safe At Home? Yes [email or web address] Information not available 12/14/2023 What Is Your Current Pack Years? [email or web address] Information not available 03/23/2022 What Is Your Relationship Status? Information not available 11/30/2022 Do You Use Your Seat Belt Or Car Seat Routinely? Yes [email or web address] Information not available 11/30/2022 Do You Have Smoke And Carbon Monoxide Detectors In Your Home? Yes [email or web address] Information not available 11/30/2022 At What Age Did You Start Smoking Tobacco? 17 Reduced To 11-15 A Day Information not available 03/23/2022 How Much Tobacco Do You Smoke? 1 PPD [email or web address] Information not available 03/23/2022 How Many Years Have You Smoked Tobacco? 60 [email or web address] Information not available 12/14/2023 Do You Have Difficulty Walking Or Climbing Stairs? Yes [email or web address] Information not available 11/30/2022 Sex: Male Functional Status Question Answer Note LastModified by Organizat ion Details LastModified Time Do you use any illicit or recreational drugs? No [email or web address] Information not available 12/06/2023 What is your level of alcohol consumption? None [email or web address] Information not available 03/23/2022 Do you have transportation difficulties? No Information not available 11/30/2022 Are you able to walk? YESASSIST [email or web address] Information not available 11/30/2022 Do you have difficulty doing errands alone? Yes [email or web address] Information not available 11/30/2022 Are you able to care for yourself? Yes [email or web address] Information not available 11/30/2022 Do you have difficulty dressing or bathing? No Information not available 11/30/2022 What is your exercise level? None Information not available 11/30/2022 Mental Status Question Answer Note LastModified by Organizat ion Details LastModified Time Do you feel stressed (tense, restless, nervous, or anxious, or unable to sleep at night)? [id number] Information not available 11/30/2022 Do you have difficulty concentrating, remembering or making decisions? No [email or web address] Information no t available 11/30/2022 Family History [...] Medical History Condition Response Anxiety Disorder Y Heart Problems Coronary Artery Disease Y Other Y Obesity Y Arthritis Y Eczema Y Depression Y COPD Y Asthma Y High Cholesterol Y Heart Disease Y Hypertension Y Osteoporosis Immunizations Vaccine Type Date Status Note Provider Nam e and Address Organization Details Recorded Time Influenza, high-dose, quadrivalent, PF 2 completed Luz Maria Garza- [facility] [place] 11/24/2022 16:55:19 COVID-19, mRNA, LNP-S, PF, 100 mcg/0.5mL dose or 50 mcg/0.25mL dose 2 completed Luz Maria Garza- [facility] [place] 11/24/2022 16:55:19 COVID-19, mRNA, LNP-S, bivalent, PF, 50 mcg/0.5 mL or 25mcg/0.25 mL dose 2 completed Luz Maria Garza- [facility] [place] 11/24/2022 16:55:19 Influenza, high-dose, trivalent, PF 7 completed Luz Maria Garza- [place] 11/24/2022 16:55:19 Influenza, adjuvanted, trivalent, PF 9 completed Chrissy Mccormack [place] 10/12/2023 09:32:07 Influenza, adjuvanted, trivalent, PF 8 completed Chrissy [place]sen[place] 10/12/2023 09:32:07 zoster recombinant 1 completed Chrissy Mccormack [place] 10/12/2023 09:32:07 COVID-19, mRNA, LNP-S, PF, 100 mcg/0.5mL dose or 50 mcg/0.25mL dose 1 completed Chrissy Mccormack [place] 10/12/2023 09:32:07 COVID-19, mRNA, LNP-S, PF, 100 mcg/0.5mL dose or 50 mcg/0.25mL dose 1 completed Chrissy [place] 10/12/2023 09:32:07 COVID-19, mRNA, LNP-S, PF, 100 mcg/0.5mL dose or 50 mcg/0.25mL dose 1 completed Chrissy [place] 10/12/2023 09:32:08 pneumococcal polysaccharide PPV23 1 completed Chrissy [place] 10/12/2023 09:32:08 Tdap 0 completed Chrissy [place] 10/12/2023 09:32:08 Pneumococcal conjugate PCV 13 9 completed Chrissy [place] 10/12/2023 09:32:08 Influenza, high-dose, trivalent, PF 5 completed Chrissy [place] 10/12/2023 09:32:08 Influenza, split virus, quadrivalent, PF 1 completed Chrissy [place] 10/12/2023 09:32:08 Influenza, split virus, quadrivalent, PF 0 completed Chrissy [place] [facility] & [place] 10/12/2023 09:32:08 Past Encounters Encounter ID Performer Location Encounter Start Date Encounter Closed Date Diagnosis/Indication Diagnosis SNOMED-CT Code Diagnosis ICD10 Code Diagnosis Note [id number] Kirsty Mendoza MD [address] [place] [address] 03/23/2022 11:14:02 03/23/2022 11:56:51 Morbid obesity 017133801 E66.01 Neuropathy 006438667 G62 .9 Candidiasis of skin 4988 3006 B37.2 [id number] Kirsty Mendoza MD [facility] [address] [facility] [address] [place] [address] 11/30/2022 09:53:28 11/30/2022 11:01:07 Tobacco dependence syndrome 49989652 F17.210 Obesity 819312617 E66.9 Adult heal th examination 582861272 Z00.00 Discussed need for living well with [...] disorder 3548 9007 F32.A Low back pain 006028529 M54.50 Nocturia 957011411 R35.1 Eczema 08965728 L30.9 [id number] Kirsty Mendoza MD [facility] [address] [facility] [address] [place] [address] 10/14/2023 10:49:14 10/14/2023 11:48:09 Chronic low back pain 873807373 M54.50 Depressive disorder 3548 9007 F32.A Asthma 588512393 J45.90 9 [id number] Kirsty Mendoza MD [facility] [address] [place] [address] 12/14/2023 09:49:36 12/14/2023 10:41:44 Adult health examination 077749798 Z00.00 Discussed need for living well with [...] of continued nicotine abuse. Paroxysmal atrial fibrillation 589992931 I48.0 Ischemic c ongestive cardiomyopathy 828734046 I25.5 Nocturia 097960631 R35.1 Tobacco de pendence syndrome 34726508 F17.222 [id number] Doron Nicholas MD [facility] [address] [place] [address] 12/06/2023 08:55:25 12/06/2023 10:21:12 Cigarette smoker 50240568 F17.210 Complete smoking cessation strongly urged.Risk s associated with smoking including cardiovasc ular affects of DE stroke in addition to high risk of long bladder and other cancers were discussed. Tips and resources provided as noted below We discuss many products that can help you quit smoking. These products include a nicotine patch, gum, lozenge, nasal spray, and inhaler or other prescripti on medication she has not motivated to quit at this point For more helpful tips and resources, visit:[facility]' s smoke-free programs at www.smokef ree.gov 877-44U-QU IT ) Total of 7 minutes were spent discussing the above Chronic ob structive pulmonary disease 52313470 J44.9 Coronary atherosclerosis 743214274 I25.700 LVEF 45% with wall motion abnormalit ies. Will order stress test for ischemic evaluation .continue aggressive risk factor modificati on Dyspnea 844622670 R06.00 Given clinical presentati on and risk profile , will get stress test for ischemic evaluation and risk stratifica tion Paroxysmal atrial fibrillation 866436548 I48.0 rates well controlled . Will start Xarelto. Ischemic c ongestive cardiomyopathy 730291474 I25.5 LVEF around 45% possibly ischemic, stress test pendingcli nically well compensate d Noncomplia nce with medication regimen 622182138 Z91.148 he has been noncomplia nt with his medication s including statin and anticoagul ation. Health Concerns Section Related Observation LastModified by Organization Detai ls LastModified Time None Recorded Concern Status LastModified by Organization Details LastModified Time None Recorded Advance Directives Directive Y: Payers Insurance Date Sequence Insurance Name Policy Number Policy [place] Covered Member ID [place] Member ID Guarantor Name 10/14/2023 2 [employer] (MEDICARE SUPPLEMENT) José Basurto [id number] José Luna Alconde 11/26/2024 1 [place] José Basurto Jr [id number] José Luna Artemrashad Notes Date Note Type [...] his Kirsty Mendoza MD [address], [place], [address], [facility] 03/23/2022 12:53:18 3 text/html He is here for Medicare annual wellness exam discuss his medical problems. He is history of chronic neck and back pain. , depression, COPD with continued nicotine abuse, obesity. He had surgery down a [place] for his neck and seems to be doing much better. He is currently off all narcotic prescriptions but still taking Lyrica. Currently on Cymbalta for his depressive disorder seems to be doing well. His past medical history, social history, surgical history, family history reviewed and preventive maintenance strategies discussed with the patient. Kirsty Mendoza MD [address], [place], [address], [facility] 11/30/2022 11:21:18 4 text/html He is here for follow-up. He and his girlfriend who moved back to [place] after the winter in [place]. He is history of chronic low back pain followed by pain management in [place], depression, asthma. He continues get Lyrica from his pain medicine physician in [place]. He needs a new power mobility device. [...] inhaler. Kirsty Mendoza MD [address], [place], [address], [facility] & [place] 10/14/2023 11:54:43 4 text/html 78 M here [...] social history: He is pins [place] in [place], Doron Nicholas MD [address], [place], [address], [facility] & [place] 12/06/2023 16:49:48 4 text/html He is here [...] maintenance strategies discussed patient. Kirsty Mendoza MD [address], [place], [address], [facility] - [place] - [place] & [place] 12/14/2023 12:40:16
--- NOTE | 2024-11-30 15:14 | PC.NURSE ---
patient has done well since return from [facility]. at bedside. sitting in chair at this time. tolerating clear liquids. no bm as of now. no complaints of nausea or pain this after noon. some confusion this morning. remains on room air some desats with sleep. encouraged to ring out as needed.
--- NOTE | 2024-11-30 15:54 | PC.NURSE ---
patient left ICU via recliner with SRNA to [facility] room 209 @3700
--- NOTE | 2024-11-30 16:34 | PC.NURSE ---
Pt arrived to floor @2128
[2024-11-30] MEDS: ATORVASTATIN 40MG TABLET 80 MG PO (20:22)
[2024-12-01] VITALS (18 sets, daily range): BP systolic 85–149; BP diastolic 39–76; PULSE 60–82; RESP 12–18; TEMP 36.1–36.7; O2SAT 93–100; BMI 15.1
--- NOTE | 2024-12-01 02:00 | PC.NURSE ---
Pt. was up in the recliner chair asleep. He was incontinent of urine. Pt. states he thought he had the purewick in place. Pt. was assisted back to bed, cleaned up and purewick was applied. Pt. comfortable in bed and is going to try to sleep.
--- NOTE | 2024-12-01 04:58 | PC.NURSE ---
Pt. was alert and orientated toight. Pt on room air. denies any Shortness of breath, chest pains, light headedness, dizziness or abdominal pain. Pt. was up in recliner until he had an incontinent episode and was assisted to the bed. Purewick was place. Pt. slept well this shift. Personal items and call neil in reach. safety measures in place including a bed alsrm.
--- NOTE | 2024-12-01 05:00 | PC.NURSE ---
Fresh Ice Water given and room trash taken out by this SRNA at 0440
[2024-12-01] MEDS: ONDANSETRON 4MG/2ML VIAL 4 MG IV (05:20)
[2024-12-01 07:50] LABS: Basophils # 0.1 K/mm3 (0-0.2); Basophils % 0.7 % (0.1-2.0); Eosinophils # 0.3 Kmm3 (0.0-0.4); Hematocrit 28.1 % (42.0-52.0); Hemoglobin 8.6 g/dL (14.1-18.0); Immature Granulocytes # 0.22 10^3uL; Immature Granulocytes % 1.9 %; Lymphocytes # 1.1 K/mm3 (0.7-4.5); Lymphocytes % 9.4 % (10-50); Mean Corpuscular HGB Conc 30.6 g/dL (31.8-35.4); Mean Corpuscular Hemoglobin 27.5 pg (27.0-31.2); Mean Corpuscular Volume 89.8 fl (80-94); Monocytes # 0.8 K/mm3 (0.1-1.0); Monocytes % 7.3 % (1.7-9.3); Neutrophils # 8.9 K/mm3 (1.8-7.8); Neutrophils % 77.7 % (37.0-80.0); Nucleated Red Blood Cells # 0.05 10^3/uL; Nucleated Red Blood Cells % 0.4 %; Platelet Count 134 K/mm3 (142-424); Red Blood Count 3.13 M/mm3 (4.60-6.20); Red Cell Distribution Width 18.3 % (11.5-17.5); White Blood Count 11.4 K/mm3 (4.8-10.8)
[2024-12-01 08:04] LABS: Chloride 111 mmol/L (98-107)
[2024-12-01 08:05] LABS: Potassium 4.1 mmoL/L (3.5-5.1); Sodium 146 mmol/L (136-145)
[2024-12-01] MEDS: CLOPIDOGREL 75MG TAB 75 MG PO (08:05)
[2024-12-01] MEDS: METOPROLOL SUCCINATE XL 25MG TABLET 25 MG PO (08:06)
[2024-12-01] MEDS: DULOXETINE 30MG CAPSULE.DR 60 MG PO (08:06)
[2024-12-01] MEDS: SPIRONOLACTONE 25MG TABLET 25 MG PO (08:06)
[2024-12-01] MEDS: PANTOPRAZOLE 40MG VIAL 40 MG IV ×2 (08:06→21:26)
[2024-12-01 08:07] LABS: Alanine Aminotransferase 13 U/L (12-78); Alkaline Phosphatase 83 U/L (38-126); Anion Gap 10.1 mEq/L (5-15); Aspartate Amino Transferase 34 U/L (17-59); Bilirubin,Total 0.8 mg/dl (0.2-1.3); Blood Urea Nitrogen 54 mg/dl (9-20); Carbon Dioxide 29 mmol/L (22.0-30.0); Creatinine Clearance Estimated 29 mL/min (50-200); Estimated Glomerular Filt Rate 53 ml/min (>60); GFR (African American) 64 ML/MIN (>60)
[2024-12-01 08:08] LABS: Albumin/Globulin Ratio 1.1 (1.1-1.8); Calcium 8.6 mg/dl (8.4-10.2); Globulin 2.7 g/dL (1.3-3.2); Glucose 114 mg/dl (74-100); Magnesium 2.1 mg/dl (1.6-2.3); Total Protein,Serum 5.7 g/dl (6.3-8.2)
[2024-12-01] MEDS: PREGABALIN 100MG CAPSULE 200 MG PO ×2 (08:13→20:36)
[2024-12-01] MEDS: FLUTICASONE/SALMETEROL 250/50MCG DISKUS 1 PUFF IH ×2 (10:22→20:07)
--- NOTE | 2024-12-01 11:03 | P.PN_ITS ---
Subjective Narrative: Feels well today. No bowel movement. No vomiting. Hgb lance appropriately after 2U PRBCs, drifted down to 8.5. Exam Data for Last 24 hours Vital signs and Labs for Last 24 Hours: Temp Pulse Resp BP Pulse Ox O2 Del Method O2 Flow Rate 97.6 F 75 14 115/58 L 99 Room Air 2 12/01/24 04:00 12/01/24 04:00 12/01/24 04:00 12/01/24 04:00 12/01/24 04:00 12/01/24 09:00 11/30/24 09:00 FiO2 2 11/30/24 09:09 Laboratory Results - last 24 hr 12/01/24 06:55: WBC 11.4 H, RBC 3.13 L, Hgb 8.6 L, Hct 28.1 L, MCV 89.8, MCH 27.5, MCHC 30.6 L, RDW 18.3 H, Plt Count 134 L, MPV 12.0 H, Neut % (Auto) 77.7, Lymph % (Auto) 9.4 L, [place] % (Auto) 7.3, Eos % (Auto) 3.0, Baso % (Auto) 0.7, Neut # (Auto) 8.9 H, Lymph # (Auto) 1.1, [place] # (Auto) 0.8, Eos # (Auto) 0.3, Baso # (Auto) 0.1, Sodium 146 H, Potassium 4.1, Chloride 111 H, Carbon Dioxide 29, Anion Gap 10.1, BUN 54 H, Creatinine 1.30 H, Estimated Creat Clear 29, Estimated GFR 53 L, Est GFR ( Amer) 64, Glucose 114 H, Calcium 8.6, Magnesium 2.1 D, Total Bilirubin 0.8, AST 34, ALT 13, Alkaline Phosphatase 83, Total Protein 5.7 L, Albumin 3.0 L, Globulin 2.7, Albumin/Globulin Ratio 1.1 I & O for Last 24 hours: Intake & Output 11/28/24 11/29/24 11/30/24 12/01/24 23:59 23:59 23:59 23:59 Intake Total 1000 / 1000 890 / 1130 240 / 240 Output Total 1000 / 1000 1850 / 1850 175 / 175 Balance 0 / 0 -960 / -720 65 / 65 Weight 231 lb 229 lb 4.492 oz 100 lb Constitutional Constitutional: no acute distress and cooperative *Routine Abdominal Exam Abdominal: Present soft; Absent tenderness or distended Comments: chronically incarcerated umbilical hernia Progress Note: A&P Assessment and plan (1) Acute upper GI bleed: Status: Acute Assessment and plan: PPD#1 s/p EGD, findings of oozing duodenal ulcer, clipped and injected with Epi. Doing well. Feel much better after blood. Appropriate response after transfusion, but Hgb drifted back down today. No melena, no tachycardia, no hypotension, no pallor, no lightheadedness. Consider recheck Hgb today or tomorrow to assess stability before discharge. (2) Chronic heart failure with preserved ejection fraction (HFpEF, >= 50%): Status: Acute (3) CAD (coronary artery disease): Status: Acute (4) HLD (hyperlipidemia): Status: Acute (5) HTN (hypertension): Status: Acute (6) Acute blood loss anemia: Status: Acute (7) Obesity (BMI 30.0-34.9): Status: Acute
[2024-12-01 15:48] LABS: Hematocrit 27.4 % (42.0-52.0); Hemoglobin 8.3 g/dL (14.1-18.0)
--- NOTE | 2024-12-01 19:25 | P.PN_ITS ---
Subjective *Date: 12/01/24 *Time: 19:25 Interval history: Patient feeling better this morning. Denies nausea or vomiting. Denies chest pain. Stable on room air. Morning labs showed continued drop in hemoglobin however. Tolerating clear liquid diet Medical Exam Vital signs and Labs for Last 24 Hours: Vital Signs Temp Pulse Pulse Resp BP BP Pulse Ox 12/01/24 18:30 12/01/24 18:15 97.7 F 65 18 92/49 L 100 12/01/24 18:10 97.0 F L 62 18 85/50 L 97 12/01/24 18:05 97.4 F L 66 18 99/59 L 98 12/01/24 18:00 97.4 F L 82 18 149/76 H 97 12/01/24 17:56 97.4 F L 61 18 113/54 L 98 12/01/24 17:00 12/01/24 16:00 97.8 F 65 16 102/70 L 96 12/01/24 16:00 60 12/01/24 15:00 12/01/24 12:42 12/01/24 12:00 70 12/01/24 12:00 97.4 F L 64 16 110/69 95 12/01/24 11:00 12/01/24 09:00 12/01/24 08:00 80 12/01/24 08:00 98.0 F 67 18 110/50 L 96 12/01/24 08:00 12/01/24 07:00 12/01/24 05:00 12/01/24 04:00 97.6 F 75 14 115/58 L 99 12/01/24 04:00 69 12/01/24 03:00 12/01/24 01:00 12/01/24 00:00 76 12/01/24 00:00 97.8 F 64 14 120/62 99 11/30/24 23:00 11/30/24 21:02 75 11/30/24 21:00 11/30/24 20:00 98 11/30/24 20:00 98.1 F 72 16 124/56 L 98 O2 Del Method 12/01/24 18:30 Room Air 12/01/24 18:15 12/01/24 18:10 12/01/24 18:05 12/01/24 18:00 12/01/24 17:56 12/01/24 17:00 Room Air 12/01/24 16:00 Room Air 12/01/24 16:00 12/01/24 15:00 Room Air 12/01/24 12:42 Room Air 12/01/24 12:00 12/01/24 12:00 Room Air 12/01/24 11:00 Room Air 12/01/24 09:00 Room Air 12/01/24 08:00 12/01/24 08:00 Room Air 12/01/24 08:00 Room Air 12/01/24 07:00 Room Air 12/01/24 05:00 Room Air 12/01/24 04:00 12/01/24 04:00 12/01/24 03:00 Room Air 12/01/24 01:00 Room Air 12/01/24 00:00 12/01/24 00:00 Room Air 11/30/24 23:00 Room Air 11/30/24 21:02 11/30/24 21:00 Room Air 11/30/24 20:00 Room Air 11/30/24 20:00 Room Air Intake and Output 12/01/24 12/01/24 12/01/24 07:59 15:59 23:59 Intake Total 240 / 360 120 / 360 0 / 360 Output Total 175 / 175 0 / 175 Balance 65 / 185 120 / 185 0 / 185 Intake: Intake, Oral Amount 240 / 360 120 / 360 Intake (Blood Product) Amt 0 / 0 Red Blood Cells Unit 0 / 0 [id number] Output: Output, Urine Amount 175 / 175 0 / 175 Other: Number of Voids 1 Number of Unmeasured Voids 0 1 Weight 45.359 kg Patient Weight 12/01/24 23:59 Weight 45.359 kg Laboratory Results - last 24 hr 11/29/24 19:00: Blood Type B Positive, Antibody Screen Negative, Crossmatch (AHG) See Detail 12/01/24 06:55: WBC 11.4 H, RBC 3.13 L, Hgb 8.6 L, Hct 28.1 L, MCV 89.8, MCH 27.5, MCHC 30.6 L, RDW 18.3 H, Plt Count 134 L, MPV 12.0 H, Neut % (Auto) 77.7, Lymph % (Auto) 9.4 L, [place] % (Auto) 7.3, Eos % (Auto) 3.0, Baso % (Auto) 0.7, Neut # (Auto) 8.9 H, Lymph # (Auto) 1.1, [place] # (Auto) 0.8, Eos # (Auto) 0.3, Baso # (Auto) 0.1, Sodium 146 H, Potassium 4.1, Chloride 111 H, Carbon Dioxide 29, Anion Gap 10.1, BUN 54 H, Creatinine 1.30 H, Estimated Creat Clear 29, Est imated GFR 53 L, Est GFR ( Amer) 64, Glucose 114 H, Calcium 8.6, Magnesium 2.1 D, Total Bilirubin 0.8, AST 34, ALT 13, Alkaline Phosphatase 83, Total Protein 5.7 L, Albumin 3.0 L, Globulin 2.7, Albumin/Globulin Ratio 1.1 12/01/24 15:00: Hgb 8.3 L, Hct 27.4 L I & O for Labs for Last 24 Hours: Intake & Output 11/28/24 11/29/24 11/30/24 12/01/24 23:59 23:59 23:59 23:59 Intake Total 1000 / 1000 890 / 1130 360 / 360 Output Total 1000 / 1000 1850 / 1850 175 / 175 Balance 0 / 0 -960 / -720 185 / 185 Weight 104.78 kg 104 kg 45.359 kg Constitutional: Present no acute distress, obese, chronically ill appearing and cooperative Head: Present atraumatic and normocephalic ENT: Present normal exam Respiratory: Present normal respiratory effort; Absent rhonchi, wheezes or crackles Comment:: Irregular rhythm, pacemaker in left chest, well-healed sternotomy scar GI: Present soft and normal bowel sounds; Absent distention or tenderness Extremities: Present normal inspection and full ROM Skin: Present intact; Absent erythema Neuro: Present Grossly Intact, alert, awake, oriented x 3 and moves all extremities Assessment and Plan *Assessment and plan (1) Acute upper GI bleed: Status: Acute Category: Medical Code(s): K92.2 - Gastrointestinal hemorrhage, unspecified (2) Chronic heart failure with preserved ejection fraction (HFpEF, >= 50%): Status: Acute Category: Medical Code(s): I50.32 - Chronic diastolic (congestive) heart failure (3) CAD (coronary artery disease): Status: Acute Qualifiers: Coronary Disease-Associated Artery/Lesion type: [place] artery [place] vs. transplanted heart: [place] heart Associated angina: without angina Qualified Code(s): I25.10 - Atherosclerotic heart disease of [place] coronary artery without angina pectoris Category: Medical Code(s): I25.10 - Atherosclerotic heart disease of [place] coronary artery without angina pectoris (4) HLD (hyperlipidemia): Status: Acute Qualifiers: Hyperlipidemia type: mixed hyperlipidemia Qualified Code(s): E78.2 - Mixed hyperlipidemia Category: Medical Code(s): E78.5 - Hyperlipidemia, unspecified (5) HTN (hypertension): Status: Acute Qualifiers: Hypertension type: primary hypertension Qualified Code(s): I10 - Essential (primary) hypertension Category: Medical Code(s): I10 - Essential (primary) hypertension (6) Acute blood loss anemia: Status: Acute Category: Medical Code(s): D62 - Acute posthemorrhagic anemia (7) Obesity (BMI 30.0-34.9): Status: Acute Category: Medical Code(s): E66.811 - Obesity, class 1 Plan José Basurto is a 79-year-old male who presented with upset stomach and multiple episodes of bowel movements this morning. Found to have worsening anemia. Highly suspicious for GI bleed. Elevated BUN disproportionate to creatinine. Discussed case with ER physician, request admission for further management of suspected upper GI bleed in patient who recently received stenting 10 days ago. I decided to admit for further care. Necessitating inpatient management. Have consulted surgery to evaluate for possible EGD. Cardiology consulted to assist with medication management given recent stenting and need for antiplatelet therapy as well as anticoagulation. Taken for EGD 11/30 with finding of punctate ulceration with oozing. Serial hemoglobins being monitored. Continues to require patient management. Problems addressed as follows: Upper GI bleed Peptic ulcer Acute blood loss anemia - Hemoglobin prior to admission 12.6, 10.7 on admission, responded to transfusion yesterday with hemoglobin above 10. Dropped again this morning to 8.6. Will monitor serial H&H this afternoon, if remains less than 9, will transfuse 1 unit. If drops further, will need to consider reevaluation for bleeding. Appears hemodynamically stable. - BUN continuing to improve at 54, hemoglobin 1.3. Repeat CBC, CMP, magnesium ordered for the morning. - EGD performed 11/30, reviewed results, found to have punctate ulcer. Was injected with epi and clipped. Had some oozing. Will continue clear liquid diet. -Continue pantoprazole 40 mg IV twice daily. - Transfusion threshold hemoglobin less than 9. Received 2 units yesterday. Administer 1 unit today. Repeat H&H this afternoon. If hemoglobin tomorrow remains above 9, plan for discharge #HFpEF, stable #History of CABG # CAD status post stenting 10 days ago #Hypertension #Hyperlipidemia ?Recent cath performed on 11/19. Received 3 stents to LAD. Currently on triple therapy with aspirin, Plavix, Eliquis. -Consulted cardiology, will hold aspirin at this time and Eliquis. Continue Plavix 75 mg daily -No chest pain. No concern for ACS ? ECHO 11/16/2024 reveals LVEF 50% with biatrial dilation. A1c 5.6, LDL 86 ?Continue Lipitor 80 mg nightly Lasix 40 mg daily, metoprolol succinate 25 mg daily, and spironolactone 25 mg daily #Anxiety depression: Continue home duloxetine 60 mg. Full code DVT prophylaxis: On hold due to GI bleed regular diet
[2024-12-01] MEDS: ATORVASTATIN 40MG TABLET 80 MG PO (20:37)
[2024-12-01] MEDS: SODIUM CHLORIDE 0.9% 10ML VIAL 10 ML IV (21:26)
[2024-12-02] VITALS: BP 98/52; PULSE 50; PULSE 58; RESP 12; TEMP 36.8; O2SAT 98
[2024-12-02 04:00] VITALS: BP 122/67; PULSE 54; PULSE 60; RESP 14; TEMP 36.6; O2SAT 98; BMI 15.1
--- NOTE | 2024-12-02 06:03 | PC.NURSE ---
Pt has recieved ice water and bedside tablehas been cleaned off.
[2024-12-02] MEDS: FLUTICASONE/SALMETEROL 250/50MCG DISKUS 1 PUFF IH (06:26)
[2024-12-02 06:42] LABS: Basophils # 0.1 K/mm3 (0-0.2); Basophils % 0.7 % (0.1-2.0); Eosinophils # 0.5 Kmm3 (0.0-0.4); Eosinophils % 4.2 % (0.1-12.0); Hematocrit 29.7 % (42.0-52.0); Immature Granulocytes # 0.19 10^3uL; Immature Granulocytes % 1.8 %; Lymphocytes # 1.3 K/mm3 (0.7-4.5); Mean Corpuscular Hemoglobin 28.7 pg (27.0-31.2); Mean Corpuscular Volume 89.7 fl (80-94); Mean Platelet Volume 12.2 fl (7.4-10.4); Monocytes # 0.8 K/mm3 (0.1-1.0); Monocytes % 7.1 % (1.7-9.3); Neutrophils # 7.9 K/mm3 (1.8-7.8); Neutrophils % 74.2 % (37.0-80.0); Nucleated Red Blood Cells # 0.06 10^3/uL; Nucleated Red Blood Cells % 0.6 %; Platelet Count 127 K/mm3 (142-424); Red Blood Count 3.31 M/mm3 (4.60-6.20); Red Cell Distribution Width 17.4 % (11.5-17.5); Red Cell Distribution Width-SD 53.6 fL; White Blood Count 10.7 K/mm3 (4.8-10.8)
[2024-12-02 06:50] LABS: Hemoglobin 9.5 g/dL (14.1-18.0)
[2024-12-02 06:58] LABS: Albumin Level 3.1 g/dl (3.5-5.0); Chloride 110 mmol/L (98-107); Potassium 3.8 mmoL/L (3.5-5.1); Sodium 144 mmol/L (136-145)
[2024-12-02 07:01] LABS: Alanine Aminotransferase 14 U/L (12-78); Albumin/Globulin Ratio 1.1 (1.1-1.8); Alkaline Phosphatase 83 U/L (38-126); Anion Gap 9.8 mEq/L (5-15); Aspartate Amino Transferase 41 U/L (17-59); Bilirubin,Total 0.8 mg/dl (0.2-1.3); Blood Urea Nitrogen 40 mg/dl (9-20); Carbon Dioxide 28 mmol/L (22.0-30.0); Creatinine Clearance Estimated 31 mL/min (50-200); Estimated Glomerular Filt Rate 58 ml/min (>60); GFR (African American) 70 ML/MIN (>60); Globulin 2.8 g/dL (1.3-3.2); Total Protein,Serum 5.9 g/dl (6.3-8.2)
[2024-12-02 07:02] LABS: Calcium 8.4 mg/dl (8.4-10.2); Glucose 107 mg/dl (74-100)
--- NOTE | 2024-12-02 07:28 | EXP.DC.SUM ---
General Admission date:: 11/29/24 Discharge date: 12/02/24 HPI HPI HPI: Mr. Basurto is an 79-year-old male with history of heart failure, hypertension, hyperlipidemia. Underwent heart cath 10 days ago through the right groin. Has paroxysmal A-fib and prior AAA repair. On triple therapy with aspirin, Plavix, Eliquis. Presented to the ER today due to complaint of nausea without vomiting but this was followed by multiple bowel movements. Had some abdominal pain. That is improved at this time. Denies chest pain or shortness of breath. No loss of consciousness. Did not appreciate if his bowel movements were black or bloody. On arrival to the ER, patient is hemodynamically stable. Workup including labs showed white count of 14, hemoglobin of 10, down 2 points in 3 days. Creatinine 1.2 but BUN severely elevated 85. Strong concern for GI bleed. Medicine consulted for admission and further management Hospital Course Hospital Course Hospital Course: José Basurto is a 79-year-old male who presented with upset stomach and multiple episodes of bowel movements this morning. Found to have worsening anemia. Highly suspicious for GI bleed. Elevated BUN disproportionate to creatinine. Discussed case with ER physician, request admission for further management of suspected upper GI bleed in patient who recently received stenting 10 days ago. I decided to admit for further care. Necessitating inpatient management. Have consulted surgery to evaluate for possible EGD. Cardiology consulted to assist with medication management given recent stenting and need for antiplatelet therapy as well as anticoagulation. Taken for EGD 11/30 with finding of punctate ulceration with oozing. Serial hemoglobin stable after bleeding addressed. Adjustments made to meds. Stable discharge home with close follow-up. Problems addressed as follows: Upper GI bleed Peptic ulcer Acute blood loss anemia - Hemoglobin prior to admission 12.6, 10.7 on admission, hemoglobin dropped during admission. Had multiple dark stools prior to admission. Hemoglobin dropped below 9 necessitating transfusion. Initially administered 2 units with improvement to 10, dropped again to mid 8 range. Transfused third unit with improvement to 9.5. Remained stable thereafter. Surgery was consulted on admission, patient was taken for EGD on 11/30. Found to have punctate ulcer that was bruising. Was on triple therapy due to recent heart cath with 3 stents placed in addition to A-fib. Diet was slowly advanced. Given stability and hemoglobin and tolerance of p.o. intake, patient stable discharge home with close follow-up as an outpatient with surgery. Cardiology was consulted to assist with anticoagulation management. Will continue Plavix 75 mg daily. Hold aspirin and DOAC. Will reevaluate at follow-up with cardiology. Pantoprazole initiated at 40 mg IV twice daily. Initially on misoprostol but was having side effects. Misoprostol was discontinued after 24 hours. Plan to continue pantoprazole twice daily at discharge. Recommend repeat labs in 1 week to monitor kidney function and hemoglobin. Additionally BUN greater than 80 prior to admission suggestive of GI bleeding. Improved to 40 by day of discharge. #HFpEF, stable #History of CABG # CAD status post stenting 10 days ago #Hypertension #Hyperlipidemia ?Recent cath performed on 11/19. Received 3 stents to LAD. On triple therapy at presentation with aspirin, Plavix, Eliquis. Consulted cardiology, will hold aspirin at this time and Eliquis. Continue Plavix 75 mg daily. No chest pain. No concern for ACS. ECHO 11/16/2024 reveals LVEF 50% with biatrial dilation. A1c 5.6, LDL 86. Continue Lipitor 80 mg nightly Lasix 40 mg daily, metoprolol succinate 25 mg daily, and spironolactone 25 mg daily #Anxiety depression: Continue home duloxetine 60 mg. Exam Data for Last 24 hours Vital signs and Labs for Last 24 Hours: Temp Pulse Resp BP Pulse Ox O2 Del Method O2 Flow Rate 97.6 F 75 14 115/58 L 99 Room Air 2 12/01/24 04:00 12/01/24 04:00 12/01/24 04:00 12/01/24 04:00 12/01/24 04:00 12/01/24 05:00 11/30/24 09:00 FiO2 2 11/30/24 09:09 I & O for Last 24 hours: Intake & Output 11/28/24 11/29/24 11/30/24 12/01/24 23:59 23:59 23:59 23:59 Intake Total 1000 / 1000 890 / 1130 240 / 240 Output Total 1000 / 1000 1850 / 1850 175 / 175 Balance 0 / 0 -960 / -720 65 / 65 Weight 104.78 kg 104 kg 45.359 kg Constitutional Constitutional: no acute distress, obese, chronically ill appearing and cooperative *Routine HEENT Exam Head: Present normocephalic and atraumatic Eye: Present EOMI ENT: Present mucous membranes moist *Routine Neck Exam Neck: Present supple, full ROM and normal carotid upstroke; Absent JVD, carotid bruit or lymphadenopathy *Routine Respiratory Exam Respiratory: Present CTA bilaterally, normal respiratory effort, able to speak in complete sentences and symmetric chest movement; Absent rhonchi or wheezes *Routine Cardiovascular Exam Cardiovascular: Present RRR, Normal S1 and Normal S2; Absent murmur or gallop *Routine Abdominal Exam Abdominal: Present soft, normoactive bowel sounds and distended; Absent tenderness or organomegaly *Routine Rectal Exam Patient deferred: visual exam *Routine Exam Patient deferred: penile exam *Routine Extremities Exam Extremities: Present edema (Trace, improved), full ROM, pulses intact and normal capillary refill; Absent cyanosis or clubbing *Routine Skin Exam Skin: Present intact and warm; Absent erythema Comments: Stasis dermatitis bilateral lower leg *Routine Neurological Exam Neurological: Present alert, oriented X3, CN II-XII intact and moving all extremities; Absent sensory deficit, motor deficit or altered mental status Routine Psychiatric Exam Psychiatric: Present normal affect DS: Diagnosis Discharge Diagnosis (1) Acute upper GI bleed: Status: Acute Code(s): K92.2 - Gastrointestinal hemorrhage, unspecified (2) Chronic heart failure with preserved ejection fraction (HFpEF, >= 50%): Status: Acute Code(s): I50.32 - Chronic diastolic (congestive) heart failure (3) CAD (coronary artery disease): Status: Acute Code(s): I25.10 - Atherosclerotic heart disease of [place] coronary artery without angina pectoris Qualifiers: Associated angina: without angina Coronary Disease-Associated Artery/Lesion type: [place] artery [place] vs. transplanted heart: [place] heart Qualified Code(s): I25.10 - Atherosclerotic heart disease of [place] coronary artery without angina pectoris (4) HLD (hyperlipidemia): Status: Acute Code(s): E78.5 - Hyperlipidemia, unspecified Qualifiers: Hyperlipidemia type: mixed hyperlipidemia Qualified Code(s): E78.2 - Mixed hyperlipidemia (5) HTN (hypertension): Status: Acute Code(s): I10 - Essential (primary) hypertension Qualifiers: Hypertension type: primary hypertension Qualified Code(s): I10 - Essential (primary) hypertension (6) Acute blood loss anemia: Status: Acute Code(s): D62 - Acute posthemorrhagic anemia (7) Obesity (BMI 30.0-34.9): Status: Acute Code(s): E66.811 - Obesity, class 1 Meds Home Medications and Allergies Home Medications ?Medication ?Instructions ?Recorded ?Confirmed ?Type duloxetine 60 mg capsule,delayed 60 mg PO DAILY 02/09/22 11/29/24 History release furosemide 40 mg tablet 40 mg PO DAILY 02/09/22 11/29/24 History pregabalin 200 mg capsule 200 mg PO BID 02/09/22 11/29/24 History albuterol sulfate 90 mcg/actuation 2 puff inhalation Q4HP PRN 11/16/24 11/29/24 History aerosol inhaler Shortness Of Breath fluticasone 250 mcg-salmeterol 50 1 inh inhalation BID 11/16/24 11/29/24 History mcg/dose blistr powdr for inhalation (Wixela Inhub) apixaban 5 mg tablet 5 mg PO BID #60 tabs 11/19/24 11/29/24 Rx Held on 12/02/24. Instructions: Pending follow-up with cardiology aspirin 81 mg tablet,delayed 81 mg PO DAILY 30 days #30 tabs 11/19/24 11/29/24 Rx release Held on 12/02/24. Instructions: Pending follow-up with cardiology clopidogrel 75 mg tablet 75 mg PO DAILY 30 days #30 tabs 11/19/24 11/29/24 Rx metoprolol succinate 25 mg 25 mg PO DAILY 30 days #30 tabs 11/19/24 11/29/24 Rx tablet,extended release 24 hr spironolactone 25 mg tablet 25 mg PO DAILY 30 days #30 tabs 11/19/24 11/29/24 Rx atorvastatin 80 mg tablet 80 mg PO HS 11/29/24 11/29/24 History pantoprazole 40 mg tablet,delayed 40 mg PO DAILY #30 tabs 12/02/24 Rx release New Prescriptions to Start Prescriptions: pantoprazole Frank Kam Allergies Allergy/AdvReac Type Severity Reaction Status Date / Time No Known Allergies Allergy Verified 01/14/23 10:45 Discharge Plan Disposition Patient Disposition: Home, Self-Care Condition: Fair Discharge Order Discharge Orders: Discharge Order (Routine); Ordered 12/02/24 Ordered By: Frank Kam Follow up Plan Follow up with: Spenser Marquez MD [Staff Physician, General Surgery] - Enter time for follow up Henrry Sol PA [Physician [employer], Cardiology] - Enter time for follow up Prescriptions/Medication Reconciliation: New pantoprazole 40 mg tablet,delayed release (DR/EC) 40 mg PO DAILY Qty: 30 2RF Continued pregabalin 200 mg capsule 200 mg PO BID Patient Comments: TAKE 1 CAPSULE BY MOUTH THREE TIMES A DAY duloxetine 60 mg capsule,delayed release(DR/EC) 60 mg PO DAILY furosemide 40 mg tablet 40 mg PO DAILY Patient Comments: TAKE 1 TABLET BY MOUTH EVERY DAY fluticasone propion-salmeterol [[place] Inhub] 250-50 mcg/dose blister with device 1 inh INHALATION BID Patient Comments: INHALE 1 PUFF TWICE A DAY albuterol sulfate 90 mcg/actuation HFA aerosol inhaler 2 puff INHALATION Q4HP PRN (Reason: Shortness Of Breath) Patient Comments: TAKE 2 PUFFS BY MOUTH EVERY 4 TO 6 HOURS NEEDED FOR WHEEZE clopidogrel 75 mg Tablet 75 mg PO DAILY 30 Days Qty: 30 0RF spironolactone 25 mg Tablet 25 mg PO DAILY 30 Days Qty: 30 0RF metoprolol succinate 25 mg Tablet Extended Release 24 Hr 25 mg PO DAILY 30 Days Qty: 30 0RF atorvastatin 80 mg tablet 80 mg PO HS Held aspirin 81 mg Tablet,Delayed Release (Dr/Ec) 81 mg PO DAILY 30 Days Qty: 30 0RF Hold Instructions: Pending follow-up with cardiology apixaban 5 mg tablet 5 mg PO BID Qty: 60 0RF Hold Instructions: Pending follow-up with cardiology Problem Reconciliation Problems Reviewed?: Yes Patient Discharge Instructions ACTIVITY: Continue current activity DIET: continue same diet and advance to your usual diet Patient Instructions: DI for Gastrointestinal Bleeding, Stop Light Heart Failure Print Language: [place] Providers Primary Care Provider: Provider,Referral Admit Provider: Frank Kam Attending Provider: Frank Kam
[2024-12-02 07:56] VITALS: BP 123/89; PULSE 62; RESP 18; TEMP 36.5; O2SAT 95
[2024-12-02] MEDS: PREGABALIN 100MG CAPSULE 200 MG PO (08:13)
[2024-12-02] MEDS: DULOXETINE 30MG CAPSULE.DR 60 MG PO (08:13)
[2024-12-02] MEDS: CLOPIDOGREL 75MG TAB 75 MG PO (08:14)
[2024-12-02] MEDS: SPIRONOLACTONE 25MG TABLET 25 MG PO (08:14)
[2024-12-02] MEDS: METOPROLOL SUCCINATE XL 25MG TABLET 25 MG PO (08:14)
[2024-12-02] MEDS: PANTOPRAZOLE 40MG VIAL 40 MG IV (08:16)
--- NOTE | 2024-12-02 08:21 | PC.NURSE ---
Pt. is alert and orientated x4. Pt. is on room air. Pt.was getting a blood transfusion at change of shift last night. Pt. tolerated the transfusion without difficulty. Pt. slept well this shift. Pt. got up to chair by himself this am. Pt. using a urinal to void. Personal items and call neil in reach,, safety measure in place.
--- NOTE | 2024-12-03 10:53 | SW/DCPLANNER ---
Addendum entered by Salima Foley 12/03/24 14:04: [facility] was able to accept patient. Jackie LOPEZ Cage Supervisor Original Note: Spoke with patient's on the phone. Patient's stated that he is doing very well. Patient's stated that she has not had time to call and schedule his upcoming appointments but plans on doing them today. Patient's stated that she is going to go and get his new medicine picked up. Patient's stated that she has no concerns or questions at this time. Jackie LOPEZ Cage Supervisor
== END 2024-12-02 10:56 | disposition home or self-care (01) ==
LOC: ER 08:41 → 2ND 14:48 → ICU 11-30 06:08 → 2ND 11-30 14:59
PROVIDERS: Emergency Medicine; Surgery; Admitting Provider Internal Medicine Adolescent Medicine; Emergency Provider Emergency Medicine; Visit Provider Internal Medicine Adolescent Medicine
PROC: 0DJ08ZZ Inspection of Upper Intestinal Tract, Via Natural or Artificial Opening Endoscopic (ICD-10-PCS; principal; 2024-11-30 10:25)
DX: K26.4 Chronic or unspecified duodenal ulcer with hemorrhage (principal); I21.4 Non-ST elevation (NSTEMI) myocardial infarction; D62 Acute posthemorrhagic anemia; I50.32 Chronic diastolic (congestive) heart failure; I25.10 Atherosclerotic heart disease of native coronary artery without angina pectoris; E78.2 Mixed hyperlipidemia; I48.0 Paroxysmal atrial fibrillation; E66.811 Obesity, class 1; G89.29 Other chronic pain; M85.80 Other specified disorders of bone density and structure, unspecified site; I11.0 Hypertensive heart disease with heart failure; F41.9 Anxiety disorder, unspecified; F32.A Depression, unspecified; K29.60 Other gastritis without bleeding; K44.9 Diaphragmatic hernia without obstruction or gangrene; K29.80 Duodenitis without bleeding; G62.9 Polyneuropathy, unspecified; N40.0 Benign prostatic hyperplasia without lower urinary tract symptoms; M40.209 Unspecified kyphosis, site unspecified; I49.3 Ventricular premature depolarization; F17.210 Nicotine dependence, cigarettes, uncomplicated; Z95.5 Presence of coronary angioplasty implant and graft; Z95.1 Presence of aortocoronary bypass graft; Z86.73 Personal history of transient ischemic attack (TIA), and cerebral infarction without residual deficits; Z91.148 Patient's other noncompliance with medication regimen for other reason; Z79.02 Long term (current) use of antithrombotics/antiplatelets; Z79.899 Other long term (current) drug therapy; Z95.0 Presence of cardiac pacemaker; Z79.51 Long term (current) use of inhaled steroids; Z79.82 Long term (current) use of aspirin; Z68.35 Body mass index [BMI] 35.0-35.9, adult; Z79.01 Long term (current) use of anticoagulants; T47.1X5A Adverse effect of other antacids and anti-gastric-secretion drugs, initial encounter
CPT/HCPCS: 36415; 36430; 74174; 80053; 83605; 83690; 83735; 85007; 85014; 85018; 85025; 86850; 93005; 94640; 97162; J0171; J1938; J2003; J2405; J2470; J2704; J7050; J7120; P9016; Q9967

== ENCOUNTER 2025-01-01 12:54 | Outpatient (RCR) | payer MEDICARE, OTHER, SELFPAY | END 2025-01-29 08:00 | disposition home or self-care (01) | LOC: CR 12:54 | PROVIDERS: Visit Provider Internal Medicine Adolescent Medicine | DX: Z48.812 Encounter for surgical aftercare following surgery on the circulatory system (principal); Z95.5 Presence of coronary angioplasty implant and graft | CPT/HCPCS: 93798 ==

== ENCOUNTER 2025-01-20 22:23 | Observation (INO) | payer MEDICARE, OTHER, SELFPAY ==
[2025-01-20] VITALS (8 sets, daily range): BP systolic 117–133; BP diastolic 62–78; PULSE 58–65; RESP 15–21; TEMP 36.6; O2SAT 95–98; BMI 33.0
--- OUTSIDE RECORDS SUMMARY | 2025-01-20 22:32 | XMS_ITS | Clinical Summary ---
Author Organization [facility] Address [address] [place] [id number] Care Team Providers Care Liquor Establishment Manager Name Role Phone Peyton Alan DO Primary Care Provider [phone] Allergies No known active allergies Active Problems [...] season) 2024 05/04/2021, 08/28/2020, 07/31/2020 Influenza Vaccine (#1) 2025 2, 02/02/2021, 03/16/2020, Additional history exists Pneumococcal Vaccine: 50+ Years Completed 02/02/2021, 08/19/2018 HIB Vaccines Aged [...] age to complete this topic Insurance MEDICARE [facility] OTHER GENERIC COMMERCIAL Care Teams Liquor Establishment Manager Relationship Specialty Start Date End Date Peyton Alan DO [address] [place], [place] [phone] PCP - General 05/13/20
--- OUTSIDE RECORDS SUMMARY | 2025-01-20 22:33 | XMS_ITS | Clinical Summary ---
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 2 Active multivitamin (THERAGRAN) tablet tablet Take 1 tablet by mouth Daily. Active Ozempic, 0.25 or 0.5 MG/DOSE, 2 MG/1.5ML solution pen-injector NOT CURRENTLY TAKING 2 Active traMADol (ULTRAM) 50 MG tabletIndication s:Cervical spondylosis with myelopathy Take 1 tablet by mouth Every 8 (Eight) Hours As Needed for Moderate Pain. 2 Active Additional Information Patient taking differently:50 mg OralEvery 6 Hours PRN, Moderate Pain, Reported on 05/20/2022 furosemide (LASIX) 40 MG tabletIndication s:Chronic systolic congestive heart failure,Chronic HFrEF (heart failure with reduced ejection fraction) Take 1 tablet by mouth Daily. 90 tablet 1 2 Active potassium chloride (K-DUR,KLOR-CON) 10 MEQ CR tabletIndication s:Chronic systolic congestive heart failure,Chronic HFrEF (heart failure with reduced ejection fraction) Take 1 tablet by mouth Daily. 90 tablet 1 2 Active aspirin 81 MG EC tabletIndication s:Coronary artery disease involving northwestern shoshone coronary artery of northwestern shoshone heart without angina pectoris Take 1 tablet by mouth Daily. 90 tablet 1 2 Active atorvastatin (LIPITOR) 40 MG tabletIndication s:Coronary artery disease involving [place]western shoshone coronary artery of northwestern shoshone heart without angina pectoris Take 1 tablet by mouth Every Night. 90 tablet 1 2 Active pregabalin (LYRICA) 200 MG capsule Take 200 mg by mouth 3 (Three) Times a Day. 2 Active pantoprazole (PROTONIX) 20 MG EC tablet 2 Active potassium chloride 10 MEQ CR tablet 2 Active Active Problems Problem Noted Date Diagnosed Date Anterior knee pain 05/24/2022 Edema of lower extremity 05/24/2022 Gastrocnemius tendon rupture 05/24/2022 Hematoma 05/24/2022 Hypertensive disorder 05/24/2022 Laceration of lower limb 05/24/2022 Lumbar radiculopathy 05/24/2022 Neuropathy 05/24/2022 Osteoarthritis of knee 05/24/2022 Arthritis 05/24/2022 Tendinitis 05/24/2022 Traumatic rupture of Achilles tendon 05/24/2022 Ulcer of heel 05/24/2022 Cervical spondylosis with myelopathy 05/05/2022 Myelopathy 03/26/2022 Assessment & Plan (03/26/2022 10:03 AM EDT): Progressive weakness in all extremities. MRI Cervical Labs Congestive heart failure 09/21/2018 Coronary arteriosclerosis 09/21/2018 Generalized ischemic myocardial dysfunction 09/04 Hyperlipidemia 09/21/2018 Essential hypertension 09/21/2018 Overweight 09/21/2018 Family History Medical History Relation Name Comments Cancer Brother Chris stomach Cancer Father José Basurto lung Alzheimer's disease Mother Relation Name Status Comments Brother Chris Father José Basurto Mother Social History Tobacco Use Types Packs/Day Years Used Date Smoking Tobacco: Former Cigarettes 2 62.6 0 08/13/1959 - 03/20/2022 Smokeless Tobacco: Never Tobacco Cessation:Counseling Given: Not Answered Alcohol Use Standard Drinks/Week Comments Not Currently 0 (1 standard drink = 0.6 oz pure alcohol) Stopped 12 years ago 12 years ago is it accurate up first al Abuse Screen Answer Date Recorded Unsafe at Home or Work/School Not on file Feels Threatened by Someone? Not on file Does Anyone Keep You from Co ntacting Others or Doint Things Outside the Home? Not on file 05/20/2023 Physical Sign of Abuse Present Not on file 1 07/21/2022 Housing Stability Answer Date Recorded Current Living Arrangements Not on file 05/06 Potentially Unsafe Housing Conditions Not on keanu e 05/20/2023 Family and Community Support Answer Klever e Recorded Help with Day-to-Day Activities Not on file 03/18/2023 Lonely or Isolated Not on file 03/18/2023 Employment Answer Date Recorded Do you want help finding or keeping work or a jeni b? Not on file 03/18/2023 Disabilities Answer Date Recorded Concentrating, Remembering, or Making Decisions Difficulty Not on file 05/20/2023 Doing Errands Independently Difficulty Not on fi le 05/20/2023 Education Answer Date Recorded Help with school or training? Not on file Preferred Language Not on file 05/20/2023 Sex and Gender Information Value Date Recorded Sex Assigned at Not on file Legal Sex Male 8:52 AM EDT Gender Identity Not on file Sexual Orientation Not on file Last Filed Vital Signs Vital Sign Reading Time Taken Comments Blood Pressure 130/70 05/24/2022 9:30 AM EST Pulse 80 05/24/2022 9:30 AM EST Temperature 36.3 C (97.3 F) 05/24/2022 9:30 AM EST Respiratory Rate 14 05/26/2022 1:31 PM EST Oxygen Saturation 98% 05/24/2022 9:30 AM EST Inhaled Oxygen Concentration - - Weight 105 kg (232 lb) 05/26/2022 1:31 PM EST Height 177.8 cm (5' 10 ) 05/26/2022 1:31 PM EST Body Mass Index 33.29 05/26/2022 1:31 PM EST Plan of Treatment Health Maintenance Due Date Last Done Comments Pneumococcal Vaccine 50+ (1 of 2 - PCV) 1963 ZOSTER VACCINE (1 of 2) 1994 RSV Vaccine - Adults (1 - 1- dose 75+ series) 2019 COVID-19 Vaccine ( - 2023-2 5 season) 2024 ANNUAL WELLNESS VISIT 12/13/2024 12/14/2023 , 11/30/2022, 10/15/2021 LIPID PANEL 12/13/2024 12/14/2023, 11/05, 10/15/2021, Additional history exists INFLUENZA VACCINE 03/06/2025 02/24/2022, , 02/24/2022, Additional history exists TDAP/TD VACCINES (3 - Td or Tdap) 05/13/2030 020, 04/17/2020 Medical Devices Implanted Type Area Humanities Coordinator Device Identifier Shelf Expiration Date Model / Serial / Lot Hemost Abs Surgifoam [id number] 8x12 10mm - [id number] Implanted:Qty : 1 on 05/07/2022 by Conner Fry MD at [facility] Implant N/A: Spine Cervical [employer] 11/17/2025 [id number] / / [id number] Kt Seal Hemos Abs Floseal Matrx Fast/Prep 10ml - [id number] Implanted:Qty : 1 on 05/07/2022 by Conner Fry MD at [facility] Implant N/A: Spine Cervical [facility] 02/28/2024 [id number] / / [id number] Bone Lordotic Asr [id number] Fzd - [id number] Implanted:Qty : 1 on 05/07/2022 by Conner Fry MD at [facility] Implant N/A: Spine Cervical [employer] 10/05/2024 [id number] / / [id number] Plt Acp Zevo 1lvl 17mm Ns - [id number] Implanted:Qty : 1 on 05/07/2022 by Conner Fry MD at [facility] Implant N/A: Spine Cervical [employer] [id number] / / NA Scrw St Zevo 2thrd S/Tap 3.5x13mm - [id number] Implanted:Qty : 4 on 05/07/2022 by Conner Fry MD at [facility] Implant N/A: Spine Cervical [employer] [id number] / / NA Knee Additional Health Concerns Infection Onset Date Last Indicated 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
--- NOTE | 2025-01-20 22:45 | ECG_ITS ---
APPROVED REPORT Exam: Resting ECG HR:64 bpm ECG Measurements Heart Rate 64 AXES QRSd 145 QRS -44 QT 431 T 94 QTc 441 Conclusion ATRIAL FIBRILLATION WITH ABERRANT CONDUCTION OR VENTRICULAR PREMATURE COMPLEXES LEFT AXIS DEVIATION [QRS AXIS < -30] LEFT BUNDLE BRANCH BLOCK [120+ ms QRS DURATION, 80+ ms Q/S IN V1/V2, 85+ ms R IN I/aVL/V5/V6] No STEMI Electronically signed by : WOLF SIDHU, 01/21/2025 02:55:26
[2025-01-20 23:00] LABS: Albumin Level 3.6 g/dl (3.5-5.0); Chloride 110 mmol/L (98-107); Sodium 139 mmol/L (136-145)
[2025-01-20 23:01] LABS: Potassium 3.6 mmoL/L (3.5-5.1)
[2025-01-20 23:03] LABS: Alanine Aminotransferase 37 U/L (12-78); Albumin/Globulin Ratio 1.1 (1.1-1.8); Alkaline Phosphatase 141 U/L (38-126); Anion Gap 13.6 mEq/L (5-15); Aspartate Amino Transferase 40 U/L (17-59); Bilirubin,Total 0.6 mg/dl (0.2-1.3); Blood Urea Nitrogen 39 mg/dl (9-20); Carbon Dioxide 19 mmol/L (22.0-30.0); Creatinine Clearance Estimated 58 mL/min (50-200); Creatinine,Serum 1.50 mg/dl (0.66-1.25); Estimated Glomerular Filt Rate 45 ml/min (>60); GFR (African American) 54 ML/MIN (>60); Globulin 3.2 g/dL (1.3-3.2); Glucose 112 mg/dl (74-100); Total Protein,Serum 6.8 g/dl (6.3-8.2)
[2025-01-20 23:04] LABS: Calcium 8.4 mg/dl (8.4-10.2)
--- NOTE | 2025-01-20 23:06 | XR_ITS ---
PROCEDURE INFORMATION: Exam: XR Chest Exam date and time: 01/20/2025 11:14 PM Age: 79 years old Clinical indication: Other: Dyspnea on exertion, volume overload TECHNIQUE: Imaging protocol: Radiologic exam of the chest. Views: 1 view. COMPARISON: CR XR CHEST PORTABLE 11/15/2024 10:56 PM FINDINGS: Lungs: Vascular congestion Pleural spaces: Suspect trace left pleural effusion. Heart/Mediastinum: Severe cardiomegaly Bones/joints: Unremarkable. IMPRESSION: Severe cardiomegaly and vascular congestion. Little change in aeration.
[2025-01-20 23:15] LABS: Troponin I 0.07 ng/ml (0.00-0.034)
[2025-01-20] MEDS: FUROSEMIDE 40MG/4ML VIAL 40 MG IV (23:17)
[2025-01-20 23:46] LABS: NT Pro Brain Natriuretic Pep. 17100 pg/mL (0-450)
[2025-01-21] VITALS (37 sets, daily range): BP systolic 93–149; BP diastolic 42–100; PULSE 40–79; RESP 13–21; TEMP 36.3–36.8; O2SAT 91–98; BMI 34.3
[2025-01-21 00:13] LABS: Hepatitis C Ab Qual. W/ RFX NEGATIVE (Negative)
[2025-01-21 00:36] LABS: Hematocrit 30.0 % (42.0-52.0); Hemoglobin 8.9 g/dL (14.1-18.0); Immature Granulocytes % 2.5 %; Mean Corpuscular HGB Conc 29.7 g/dL (31.8-35.4); Mean Corpuscular Hemoglobin 22.6 pg (27.0-31.2); Mean Corpuscular Volume 76.1 fl (80-94); Nucleated Red Blood Cells % 4.9 %; Platelet Count 166 K/mm3 (142-424); Red Blood Count 3.94 M/mm3 (4.60-6.20); Red Cell Distribution Width-SD 58.1 fL; White Blood Count 13.5 K/mm3 (4.8-10.8)
--- NOTE | 2025-01-21 01:10 | HMH.EDGENADL ---
Discharge Plan Disposition Patient Disposition: Admitted Condition: Fair Clinical Impressions Clinical Impression: CHF exacerbation, Volume overload, Generalized weakness Discharge ED Provider: Lenka Damico General Adult HPI General Chief complaint: Weakness Stated complaint: Leg Swelling Time Seen by Provider: 01/20/25 22:59 Mode of Arrival: Family Vehicle Source of Information: Patient Description of Symptoms (Recalled from ER Triage Doc. by RN): Weakness Pt presnets to the ED with c/o weakness and bilateral lower leg pain, swelling, and weeping X 1 week. Pt reports that he is suppose to take lasix but has quit taking it because it makes me pee myself . History of Present Illness HPI narrative: 79-year-old male presents to the ER complaining of generalized weakness progressive over the last week, worsening leg swelling and weeping for the last week. Medical history includes CAD, hypertension, hyperlipidemia, CHF. Patient reports he has been taking his pee pills (Lasix) but he stopped taking the last 2 days because he was urinating all the time and was unable to make it to the restroom in time. He states he is having increased shortness of breath with exertion, he required assistance getting from his truck into the wheelchair and wheelchair into the stretcher in the ER because of generalized weakness and shortness of breath. He does not wear oxygen at home, no oxygen requirement at this time saturating 97% on room air. Patient does smoke. He has no numbness, tingling, or focal weakness. No headache or dizziness, no abdominal pain, nausea, vomiting, diarrhea, or other complaints or concerns. Related Data Home Medications ?Medication ?Instructions ?Recorded ?Confirmed duloxetine 60 mg capsule,delayed 60 mg PO DAILY 02/09/22 12/13/24 release furosemide 40 mg tablet 40 mg PO DAILY 02/09/22 12/13/24 pregabalin 200 mg capsule 200 mg PO BID 02/09/22 12/13/24 albuterol sulfate 90 mcg/actuation 2 puff inhalation Q4HP PRN 11/16/24 12/13/24 aerosol inhaler Shortness Of Breath fluticasone 250 mcg-salmeterol 50 1 inh inhalation BID 11/16/24 12/13/24 mcg/dose blistr powdr for inhalation (Wixela Inhub) atorvastatin 80 mg tablet 80 mg PO HS 11/29/24 12/13/24 Previous Rx's ?Medication ?Instructions ?Recorded apixaban 5 mg tablet 5 mg PO BID #60 tabs 11/19/24 Held on 12/02/24. Instructions: Pending follow-up with cardiology aspirin 81 mg tablet,delayed 81 mg PO DAILY 30 days #30 tabs 11/19/24 release Held on 12/02/24. Instructions: Pending follow-up with cardiology clopidogrel 75 mg tablet 75 mg PO DAILY 30 days #30 tabs 11/19/24 metoprolol succinate 25 mg 25 mg PO DAILY 30 days #30 tabs 11/19/24 tablet,extended release 24 hr spironolactone 25 mg tablet 25 mg PO DAILY 30 days #30 tabs 11/19/24 Allergies Allergy/AdvReac Type Severity Reaction Status Date / Time No Known Allergies Allergy Verified 12/13/24 13:42 [facility] Disclaimer: The information contained in this section may have been updated after the patient was seen, as this information can be updated by other users. Medical History Noncompliance with medication regimen Acute on chronic heart failure with preserved ejection fraction (HFpEF) PVCs (premature ventricular contractions) Paroxysmal atrial fibrillation NSTEMI (non-ST elevated myocardial infarction) Kyphosis Osteoarthritis BPH (benign prostatic hyperplasia) Osteopenia DDD (degenerative disc disease) Peripheral neuropathy Chronic pain syndrome Anxiety Obesity HTN (hypertension) HLD (hyperlipidemia) Aneurysm History of alcohol abuse History of substance abuse Hypertension Neuropathy Surgical History History of coronary artery bypass graft Hx of cervical spinal arthrodesis S/p total knee replacement, bilateral History of heart bypass surgery Family History Other Cancer Social History Smoking Status: Current every day smoker tobacco type: cigarettes packs per day: 1 alcohol intake: never substance use type: denies use current occupational status: other Travel in the last 8 weeks?: None household members: spouse housing: house current occupational exposures/hazards: No caffeine: Yes Have you lived/traveled outside [place] in past 30 days?: No Contact w/someone who lives/traveled outside US past 30 days?: No Exposure to someone with infectious disease in past 14 days?: No Do you have a fever (greater than 100.4 F or 38 C)?: No Have you tested positive for COVID-19?: No Exposed to someone with COVID-19 in past 14 days?: No Do you have a sore throat?: No Do you have a cough?: No Do you have any weakness?: No Do you have any diarrhea?: No Are you experiencing any unusual bleeding?: No Do you have any muscle aches/pain?: No Do you have any abdominal pain?: No Are you experiencing loss of taste or smell?: No Other Medical History Have you received the Flu Vaccine for this season: No Have you received the Pneumonia Vaccine: Yes ROS Obtained: Yes Systems reviewed as appropriate & no additional complaints except as documented per HPI Physical Exam General General appearance: alert, in no apparent distress and obese Head Head exam: atraumatic and normocephalic Eye Eye exam: Present PERRL and EOMI ENT ENT exam: Present mucous membranes moist Neck Neck exam: Present normal inspection and full ROM Chest Chest inspection: Present symmetric chest wall rise Respiratory Respiratory exam: Present other (97% on room air); Absent normal lung sounds bilaterally (Rales bilaterally), respiratory distress, wheezes or stridor Cardiovascular Cardiovascular exam: Present regular rate and normal rhythm Abdominal Exam Abdominal exam: Present soft; Absent distention or tenderness Extremities Exam Extremities exam: Present full ROM, normal capillary refill, edema (Severe pitting edema in the bilateral lower extremities, patient has diffuse body wall edema up to the mid abdomen) and other (Skin weeping on the bilateral lower extremities wounds do not appear infected); Absent joint swelling or calf tenderness Neurological Exam Neurological exam: Present alert and oriented X3; Absent motor sensory deficit Psychiatric Psychiatric exam: Present normal affect and normal mood Skin Skin exam: Present warm and dry Medical Decision Making Medical Records Medical records reviewed: Yes I reviewed the patient's medical records. Screening: Per USPSTF and CDC recommendations, given the prevalence of disease in our region, it is our hospital?s policy to screen for HIV and viral Hepatitis for all patients aged 18 and over and those with ongoing risk factors. Dionisio Inquiry Pt receiving controlled substance: No Vital Signs: 01/20/25 22:28 01/20/25 22:31 01/20/25 22:31 Temperature 97.8 F Temperature Source Oral Pulse Rate 64 Pulse Rate [Left] 65 Respiratory Rate 16 17 Blood Pressure 133/78 Blood Pressure [Right Arm] 133/78 Blood Pressure Mean 96 Blood Pressure Mean [Right Arm] 96 Blood Pressure Source [Right Arm] Automatic Cuff Blood Pressure Position [Right Arm] Sitting 02 Sat by Pulse Oximetry 96 95 Oxygen Delivery Method Room Air 01/20/25 23:00 01/20/25 23:01 01/20/25 23:15 Temperature Temperature Source Pulse Rate 58 L Pulse Rate [Left] Respiratory Rate 17 21 Blood Pressure 120/62 Blood Pressure [Right Arm] Blood Pressure Mean 81 Blood Pressure Mean [Right Arm] Blood Pressure Source [Right Arm] Blood Pressure Position [Right Arm] 02 Sat by Pulse Oximetry 98 Oxygen Delivery Method 01/20/25 23:30 01/20/25 23:31 01/20/25 23:31 Temperature Temperature Source Pulse Rate Pulse Rate [Left] Respiratory Rate 15 16 Blood Pressure 117/68 Blood Pressure [Right Arm] Blood Pressure Mean 77 Blood Pressure Mean [Right Arm] Blood Pressure Source [Right Arm] Blood Pressure Position [Right Arm] 02 Sat by Pulse Oximetry Oxygen Delivery Method 01/20/25 23:45 01/21/25 00:00 01/21/25 00:01 Temperature Temperature Source Pulse Rate Pulse Rate [Left] Respiratory Rate 19 21 20 Blood Pressure Blood Pressure [Right Arm] Blood Pressure Mean Blood Pressure Mean [Right Arm] Blood Pressure Source [Right Arm] Blood Pressure Position [Right Arm] 02 Sat by Pulse Oximetry Oxygen Delivery Method 01/21/25 00:01 01/21/25 00:15 01/21/25 00:30 Temperature Temperature Source Pulse Rate Pulse Rate [Left] Respiratory Rate 19 18 Blood Pressure 123/80 Blood Pressure [Right Arm] Blood Pressure Mean 94 Blood Pressure Mean [Right Arm] Blood Pressure Source [Right Arm] Blood Pressure Position [Right Arm] 02 Sat by Pulse Oximetry Oxygen Delivery Method 01/21/25 00:31 01/21/25 00:31 01/21/25 00:45 Temperature Temperature Source Pulse Rate Pulse Rate [Left] Respiratory Rate 16 17 Blood Pressure 110/64 Blood Pressure [Right Arm] Blood Pressure Mean 79 Blood Pressure Mean [Right Arm] Blood Pressure Source [Right Arm] Blood Pressure Position [Right Arm] 02 Sat by Pulse Oximetry Oxygen Delivery Method Lab Data Lab Results 01/20/25 22:26: WBC 13.5 H, RBC 3.94 L, Hgb 8.9 L, Hct 30.0 L, MCV 76.1 L, MCH 22.6 L, MCHC 29.7 L, RDW 21.7 H, Plt Count 166, MPV 11.6 H, Neut % (Auto) 73.5, Lymph % (Auto) 11.4, [place] % (Auto) 8.5, Eos % (Auto) 3.1, Baso % (Auto) 1.0, Neut # (Auto) 9.9 H, Lymph # (Auto) 1.5, [place] # (Auto) 1.2 H, Eos # (Auto) 0.4, Baso # (Auto) 0.1, Sodium 139, Potassium 3.6, Chloride 110 H, Carbon Dioxide 19 L, Anion Gap 13.6, BUN 39 H, Creatinine 1.50 H, Estimated Creat Clear 58, Estimated GFR 45 L, Est GFR ( Amer) 54 L, Glucose 112 H, Calcium 8.4, Total Bilirubin 0.6, AST 40, ALT 37, Alkaline Phosphatase 141 H, Troponin I 0.07 H, NT-Pro-B Natriuret Pep 82860 H, Total Protein 6.8, Albumin 3.6, Globulin 3.2, Albumin/Globulin Ratio 1.1, HCV Ab GREGORY w/Rflx PCR Qn Negative, HIV Ag/Ab Combo Qual Negative 01/20/25 22:26 01/20/25 22:26 Orders (Tests/Meds): ED MEDICATIONS Discontinued Medications Generic Name Dose Route Start Last Admin Trade Name Freq PRN Reason Stop Dose Admin Furosemide 40 mg 01/20/25 23:07 01/20/25 23:17 Furosemide 40mg/4ml Vial IV 01/20/25 23:08 40 mg ONCE ONE Administration ORDERS Category Date Time Status CXR --portable [XR chest portable] Stat Exams 01/20/25 23:06 Completed POCUS Point of Care (ER Only) Stat Exams 01/20/25 23:06 Completed BNP [NT Pro Brain Natriuretic Pep.] Stat Lab 01/20/25 22:26 Completed Complete Blood Count Auto Diff Stat Lab 01/20/25 22:26 Completed Comprehensive Metabolic Panel Stat Lab 01/20/25 22:26 Completed HIV Combo Stat Lab 01/20/25 22:26 Completed Hepatitis C Ab Qual. W/ RFX Stat Lab 01/20/25 22:26 Completed Troponin I Q3H Lab 01/21/25 02:00 Ordered Troponin I Q3H Lab 01/21/25 05:00 Ordered Troponin I Stat Lab 01/20/25 22:26 Completed 12-lead EKG Request [ECG Request] Stat Y 01/20/25 22:45 Ordered Medical Decision Narrative: In summary, this 79-year-old male with comorbidities described in the HPI not at goal therapy presents to the emergency department today with generalized weakness, swelling in the legs, weeping legs, increased dyspnea on exertion. On initial evaluation patient is hemodynamically stable, afebrile, GCS 15 with no focal neurologic deficits, patient has diffuse body wall edema from the legs all the way up through the mid abdomen, Rales in the bilateral lungs, remainder of exam benign. Differential diagnosis includes but is not limited to ACS, CHF exacerbation, pulmonary edema, volume overload, electrolyte abnormality, kidney dysfunction, reduced EF, pleural effusion, among other. Based on these concerns, I ordered serum labs, cardiac workup, BNP, [id number] ultrasound, chest x-ray. ECG personally interpreted demonstrates atrial fibrillation with aberrant conduction, rate 64, left axis deviation, normal QTc, LBBB, no STEMI. Patient received Lasix for treatment. Labs personally reviewed demonstrate mild leukocytosis and anemia nonactionable at this time, platelets normal, CMP with slight elevation in creatinine now 1.5 up from 1.2, still has some prerenal azotemia but I am not going to treat with fluids at this time given his severe volume overload clinically, troponin 0.07 actually improved from previous, BNP nearly doubled from prior now 17,100 consistent with his clinical presentation. Remainder of labs unremarkable. XR personally interpreted demonstrates pulmonary edema, vascular congestion, see radiology read for final interpretation. [id number] ultrasound personally performed and interpreted at bedside demonstrates B-lines in the lung lagos as well as reduced EF but no pericardial effusion, no pleural effusion. See procedure note for details. Patient requires admission to the hospital at this time for his generalized weakness, dyspnea on exertion. He is diffusely weak enough that he is not able to ambulate around the ER at this time. He requires continued diuretic treatment and will likely need echo while inpatient for further evaluation of his cardiac function. Patient is agreeable to this plan. He has had significant urine output since receiving Lasix in the ER. I discussed this case with the hospitalist, Skinny, who graciously accepted this patient for admission. Patient admitted in stable condition. Procedures Miscellaneous Procedure Procedure Performed: Limited Cardiac Ultrasound Indication: Shortness of breath, generalized weakness, swelling Identified cardiac views: [-Cardiac parasternal long axis] [-Cardiac parasternal short axis] [-Cardiac apical four-chamber] [-Cardiac subxiphoid] Findings: Cardiac activity present with no gross wall motion abnormality, no pericardial effusion, no right heart strain, patient has grossly reduced EF and I suspect mitral regurg based on color-flow Impression: - Cardiac activity present with grossly reduced EF, no right heart strain, no pericardial effusion, no gross wall motion abnormality Images were saved to permanent archive The study was technically adequate CPT: 44431 This study was performed by me, and I personally interpreted all images/videos. Based on my clinical judgement, these images were adequate and did not necessitate further imaging. Critical Care Critical Care Time Critical Care Time: No
--- NOTE | 2025-01-21 01:29 | P.HP_ITS ---
<Statement entered by Deion Shipley MD - 01/22/25 11:43> Personally evaluated patient and agree with the plan of care as outlined by the LOIN PULLER. History of Present Illness *Admission Date: 01/21/25 *Reason for visit:: Volume overload respiratory distress *History of present illness: This 79-year-old male who continues to smoke. He is on Lasix and spironolactone and several other cardiac meds. 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 Talk to patient about his CODE STATUS he wants to be a full code. At this time I do agree with the ER provider needs to be placed. Combination of being able to give him diuretics without interfering with his kidney function too much.. Patient is in atrial fibs which is chronic quite irregular pulse with that though. Will have to continue to monitor electrolytes as we use diuretics to try to dry him up some. Patient also noted in the ER having a decreased ejection fraction. Will order a cardiac echo. Patient is noted for having elevated troponin to the troponin today is not higher than it normally is. [facility] Disclaimer: The information contained in this section may have been updated after the patient was seen, as this information can be updated by other users. Medical History (Updated 01/21/25 @ 01:56 by Skinny Keller APRN) Obesity (BMI 30.0-34.9) Melena Acute upper GI bleed CAD (coronary artery disease) Left bundle branch block Spinal stenosis, cervical region Lumbar radiculopathy Low back pain Cervical radiculopathy Degenerative disc disease, cervical Numbness and tingling in right hand Numbness and tingling in left hand Noncompliance with medication regimen Acute on chronic heart failure with preserved ejection fraction (HFpEF) PVCs (premature ventricular contractions) Paroxysmal atrial fibrillation NSTEMI (non-ST elevated myocardial infarction) Kyphosis Osteoarthritis BPH (benign prostatic hyperplasia) Osteopenia DDD (degenerative disc disease) Peripheral neuropathy Chronic pain syndrome Anxiety Obesity HTN (hypertension) HLD (hyperlipidemia) Aneurysm History of alcohol abuse History of substance abuse Hypertension Neuropathy Surgical History History of coronary artery bypass graft Hx of cervical spinal arthrodesis S/p total knee replacement, bilateral History of heart bypass surgery Family History Other Cancer Social History Smoking Status: Current every day smoker tobacco type: cigarettes packs per day: 1 alcohol intake: never substance use type: denies use current occupational status: other Travel in the last 8 weeks?: None household members: spouse housing: house current occupational exposures/hazards: No caffeine: Yes Have you lived/traveled outside US in past 30 days?: No Contact w/someone who lives/traveled outside US past 30 days?: No Exposure to someone with infectious disease in past 14 days?: No Do you have a fever (greater than 100.4 F or 38 C)?: No Have you tested positive for COVID-19?: No Exposed to someone with COVID-19 in past 14 days?: No Do you have a sore throat?: No Do you have a cough?: No Do you have any weakness?: No Do you have any diarrhea?: No Are you experiencing any unusual bleeding?: No Do you have any muscle aches/pain?: No Do you have any abdominal pain?: No Are you experiencing loss of taste or smell?: No Other Medical History Have you received the Flu Vaccine for this season: No Have you received the Pneumonia Vaccine: Yes Review of Systems Review of Systems Review of systems:: pertinent systems reviewed and negative unless documented below Constitutional Constitutional: Reports as per HPI, Reports daytime sleepiness, Reports fatigue, Reports lethargy and Reports weakness Eyes Eyes: Reports as per HPI ENT Ears, Nose, Mouth, and Throat: Reports as per HPI *Cardiovascular Cardiovascular: Reports as per HPI, Reports dyspnea, Reports dyspnea on exertion, Reports edema, Reports leg ulcers, Reports pedal edema and Reports rapid heart rate *Respiratory Respiratory: Reports as per HPI, Reports dyspnea and Reports dyspnea on exertion *Gastrointestinal Gastrointestinal: Reports as per HPI *Genitourinary Genitourinary: Reports as per HPI *Musculoskeletal Musculoskeletal: Reports as per HPI Integumentary/Breasts Skin/Breast: Reports as per HPI *Neurologic Neurologic: Reports as per HPI and Reports weakness Psychiatric Psychiatric: Reports as per HPI Endocrine Endocrine: Reports fatigue Hematologic/Lymphatic Hematologic/Lymphatic: Reports as per HPI Allergic/Immunologic Allergic/Immunologic: Reports as per HPI Meds Home Medications and Allergies Home Medications ?Medication ?Instructions ?Recorded ?Confirmed ?Type duloxetine 60 mg capsule,delayed 60 mg PO DAILY 12/13/24 History release furosemide 40 mg tablet 40 mg PO DAILY 02/09/2212/04 History pregabalin 200 mg capsule 200 mg PO BID 02/09/2212/13 History albuterol sulfate 90 mcg/actuation 2 puff inhalation Q 4HP PRN 11/16/24 12/13/24 History aerosol inhaler Shortness Of Breath fluticasone 250 mcg-salmeterol 50 1 inh inhalation BID 11/16/24 12/13/24 History mcg/dose blistr powdr for inhalation (Jerrod Inhub) apixaban 5 mg tablet 5 mg PO BID #60 tabs 5 12/13/24 Rx Held on 12/02/24. Instructions: Pending follow-up with cardiology aspirin 81 mg tablet,delayed 81 mg PO DAILY 30 days #3 0 tabs 11/19/24 12/13/24 Rx release Held on 12/02/24. Instructions: Pending follow-up with cardiology clopidogrel 75 mg tablet 75 mg PO DAILY 30 days #30 t abs 11/19/24 12/13/24 Rx metoprolol succinate 25 mg 25 mg PO DAILY 30 days #30 tabs 11/19/24 12/13/24 Rx tablet,extended release 24 hr spironolactone 25 mg tablet 25 mg PO DAILY 30 days #30 tabs 11/19/24 12/13/24 Rx atorvastatin 80 mg tablet 80 mg PO HS 11/29/24 5 History New Prescriptions to Start Prescriptions: Allergies Allergy/AdvReac Type Severity Reaction Status Date / Time No Known Allergies Allergy Verified 12/13/24 13:42 Exam Data for Last 24 hours Vital signs and Labs for Last 24 Hours: Temp Pulse Resp BP Pulse Ox O2 Del Method 97.8 F 58 L 17 110/64 98 Room Air 01/20/25 22:28 01/20/25 23:00 01/21/25 00:45 01/21/25 00:31 01/20/25 23:00 01/20/25 22:28 Laboratory Results - last 24 hr 01/20/25 22:26: WBC 13.5 H, RBC 3.94 L, Hgb 8.9 L, Hct 30.0 L, MCV 76.1 L, MCH 22.6 L, MCHC 29.7 L, RDW 21.7 H, Plt Count 166, MPV 11.6 H, Neut % (Auto) 73.5, Lymph % (Auto) 11.4, [place] % (Auto) 8.5, Eos % (Auto) 3.1, Baso % (Auto) 1.0, Neut # (Auto) 9.9 H, Lymph # (Auto) 1.5, [place] # (Auto) 1.2 H, Eos # (Auto) 0.4, Baso # (Auto) 0.1, Sodium 139, Potassium 3.6, Chloride 110 H, Carbon Dioxide 19 L, Anion Gap 13.6, BUN 39 H, Creatinine 1.50 H, Estimated Creat Clear 58, Estimated GFR 45 L, Est GFR ( Amer) 54 L, Glucose 112 H, Calcium 8.4, Total Bilirubin 0.6, AST 40, ALT 37, Alkaline Phosphatase 141 H, Troponin I 0.07 H, NT-Pro-B Natriuret Pep 62965 H, Total Protein 6.8, Albumin 3.6, Globulin 3.2, Albumin/Globulin Ratio 1.1, HCV Ab GREGORY w/Rflx PCR Qn Negative, HIV Ag/Ab Combo Qual Negative I & O for Last 24 hours: Intake & Output 01/18/25 01/19/25 01/20/25 01/21/25 05:59 05:59 05:59 05:59 Weight 230 lb Radiology Reports for the Last 24 Hours: Cardiomegaly vascular congestion Constitutional Constitutional: moderate distress, morbidly obese, chronically ill appearing and cooperative *Routine HEENT Exam Head: Present normocephalic, atraumatic and cushingoid faces Eye: Present EOMI and PERRL ENT: Present mucous membranes moist and nares patent *Routine Neck Exam Neck: Present supple and full ROM *Routine Respiratory Exam Respiratory: Present accessory muscle use, decreased breath sounds, prolonged expiratory phase, respiratory distress, rhonchi, distant breath sounds, able to speak in complete sentences and symmetric chest movement *Routine Cardiovascular Exam Cardiovascular: Present RRR, murmur, tachycardia and irregular rhythm *Routine Abdominal Exam Abdominal: Present soft, normoactive bowel sounds, distended and obese *Routine Rectal Exam Rectal:: deferred *Routine Genitalia Exam Genitalia:: deferred *Routine Extremities Exam Extremities: Present full ROM, pulses intact, normal capillary refill and vascular access *Routine Skin Exam Skin: Present warm and lesions Comments: Both lower extremities have significant edema weeping at several places clear liquid *Routine Neurological Exam Neurological: Present alert, oriented X3, CN II-XII intact, normal reflexes, nystagmus and vision grossly intact Comments: No signs of any significant neurologic deficit. Has good street openings inspector strength both hands good feeling has feeling in both lower extremities H&P: Result Impressions 1. Poor self-care stopping Lasix. With history of CHF now with significant edema with weeping and respiratory distress 2. Tobacco use and morbid obesity Imaging and Cardiology Chest x-ray: Status: image reviewed by me Additional comments: Severe cardiomegaly and vascular congestion. Little change in aeration. Assessment and Plan *Assessment and plan (1) Acute on chronic heart failure with preserved ejection fraction (HFpEF): Status: Acute Category: Medical Code(s): I50.33 - Acute on chronic diastolic (congestive) heart failure (2) Volume overload: Status: Acute Qualifiers: Hypervolemia type: other Qualified Code(s): E87.79 - Other fluid overload Category: Medical Code(s): E87.70 - Fluid overload, unspecified (3) CHF exacerbation: Status: Acute Qualifiers: Heart failure type: combined systolic and diastolic Qualified Code(s): I50.43 - Acute on chronic combined systolic (congestive) and diastolic (congestive) heart failure Category: Medical Code(s): I50.9 - Heart failure, unspecified (4) Elevated troponin: Status: Acute Category: Medical Code(s): R79.89 - Other specified abnormal findings of blood chemistry (5) Paroxysmal atrial fibrillation: Status: Acute Category: Medical Code(s): I48.0 - Paroxysmal atrial fibrillation (6) Obesity (BMI 35.0-39.9 without comorbidity): Status: Acute Category: Medical Code(s): E66.9 - Obesity, unspecified Plan 1. Plan to diurese the patient slowly monitoring kidney function. Contact cardiology for consult. Look at medications and change as needed 2. Tobacco abuse patient has no plans on stopping 3. Congestive heart failure to evaluate ejection fraction echocardiogram has been ordered 4. Weeping of both legs related to fluid overload wound dressings have been ordered.
--- NOTE | 2025-01-21 01:34 | CA_ITS ---
APPROVED REPORT EXAM: Limited 2D Echocardiogram with contrast Green Pipefitter: Layla Phelan CRT Ht: 5 ft 10 in Wt: 230lbs BSA: 2.21 BP: 110/64 mmHg Indications: Fluid overload, pt stopped lasix, AFIb, CABG, smoker, HTN, HLD Echo Enhancing Agent Indication: Endocardial border delineation Agent(s) / Amount(s) Used: Definity 2 cc Comments: Definity given M-Mode Dimensions RVDd 2.28 cm (0.9-2.6) LA Diam 5.41 cm (1.9-4.0) LVDd 6.14 cm (3.5-5.7) LVDs 5.04 cm (3.5-5.7) IVSd 2.09 cm (0.6-1.1) PWd 1.33 cm (0.6-1.1) EF (Teich) 36.50% FS 17.90% EDV (Teich) 189.70 mL ESV (Teich) 120.50 mL Other Information Study Quality: Fair Conclusion This is a limited TTE to evaluate for LV systolic function. Limited windows are obtained. Ultrasound enhancing agent is administered. The left ventricle is severely dilated. There is severe reduction in LV systolic function. The septum is asynchronous. LVEF is 20%. Ultrasound enhancing agent demonstrates no evidence of LV apical thrombus. Electronically signed by : Gail Dumont MD 01/21/2025 19:36:31
[2025-01-21 02:14] LABS: Troponin I 0.07 ng/ml (0.00-0.034)
--- NOTE | 2025-01-21 02:27 | PC.NURSE ---
Patient arrived to floor via stretcher from ED at 02:06.
[2025-01-21 02:59] LABS: Microscopic, Urine URINE MICROSCOPIC (MICROSCOPIC)
[2025-01-21] MEDS: IPRATROPIUM/ALBUTEROL 3 ML NEB IH ×6 (03:01→21:47)
[2025-01-21 03:02] LABS: Bilirubin,Urine Negative (Negative); Color,Urine YELLOW (Yellow); Glucose,Urine (UA) Negative (Negative); Ketones,Urine Negative (Negative); Leukocyte Esterase,Urine Negative (Negative); PH,Urine 6.0 (5.0-8.5); Protein,Urine 1+ (Negative); Specific Gravity, Urine 1.020 (1.005-1.030); Urobilinogen,Urine 0.2 EU/dl (0.2)
[2025-01-21 03:18] LABS: Squamous Epithelial Cell,Urine Occasional #/hpf (0-5); WBC,Urine Occasional #/hpf (0-3)
--- NOTE | 2025-01-21 05:21 | PC.NURSE ---
Alert and oriented. No complaints since arriving to the floor. Diminished lung sounds, room air. Barnes in place, draining urine. Bilateral lower extremities weeping, padding placed. Skin tear noted to left leg, dressed. No other skin issues. Call light in reach.
[2025-01-21 05:46] LABS: Hematocrit 28.1 % (42.0-52.0); Hemoglobin 8.1 g/dL (14.1-18.0); Immature Granulocytes % 1.7 %; Mean Corpuscular HGB Conc 28.8 g/dL (31.8-35.4); Mean Corpuscular Hemoglobin 22.0 pg (27.0-31.2); Mean Corpuscular Volume 76.2 fl (80-94); Nucleated Red Blood Cells % 3.2 %; Platelet Count 150 K/mm3 (142-424); Red Blood Count 3.69 M/mm3 (4.60-6.20); Red Cell Distribution Width-SD 58.4 fL; White Blood Count 12.8 K/mm3 (4.8-10.8)
[2025-01-21 05:49] LABS: Albumin Level 3.4 g/dl (3.5-5.0); Chloride 111 mmol/L (98-107); Potassium 3.3 mmoL/L (3.5-5.1); Sodium 139 mmol/L (136-145)
[2025-01-21 05:52] LABS: Alanine Aminotransferase 31 U/L (12-78); Albumin/Globulin Ratio 1.2 (1.1-1.8); Alkaline Phosphatase 125 U/L (38-126); Anion Gap 11.3 mEq/L (5-15); Aspartate Amino Transferase 28 U/L (17-59); Bilirubin,Total 0.8 mg/dl (0.2-1.3); Blood Urea Nitrogen 38 mg/dl (9-20); Calcium 8.3 mg/dl (8.4-10.2); Carbon Dioxide 20 mmol/L (22.0-30.0); Creatinine Clearance Estimated 65 mL/min (50-200); Creatinine,Serum 1.40 mg/dl (0.66-1.25); Estimated Glomerular Filt Rate 49 ml/min (>60); GFR (African American) 59 ML/MIN (>60); Globulin 2.9 g/dL (1.3-3.2); Glucose 94 mg/dl (74-100); Magnesium 1.7 mg/dl (1.6-2.3); Total Protein,Serum 6.3 g/dl (6.3-8.2)
[2025-01-21 06:03] LABS: Troponin I 0.06 ng/ml (0.00-0.034)
[2025-01-21] MEDS: POTASSIUM CHLORIDE 20MEQ TAB 40 MEQ PO ×2 (07:37→12:31)
--- NOTE | 2025-01-21 08:23 | HMH.PHAINT1 ---
Pharmacy Intervention Comments: home medication reconciliation completed using list from outpatient pharmacy and list from physician office
--- NOTE | 2025-01-21 09:06 | HMH.OTEV ---
OT Inpatient Evaluation Rehab OT IP Evaluation Start: 01/21/25 08:17 Freq: ONCE Status: Active Protocol: Document 01/21/25 09:00 SOLA (Rec: 01/21/25 09:06 SOLA [id number]) Rehab OT IP Assessment Subjective History PER HPI: HPI narrative: 79-year-old male presents to the ER complaining of generalized weakness progressive over the last week, worsening leg swelling and weeping for the last week. Medical history includes CAD, hypertension, hyperlipidemia, CHF. Patient reports he has been taking his pee pills (Lasix) but he stopped taking the last 2 days because he was urinating all the time and was unable to make it to the restroom in time. He states he is having increased shortness of breath with exertion, he required assistance getting from his truck into the wheelchair and wheelchair into the stretcher in the ER because of generalized weakness and shortness of breath. He does not wear oxygen at home, no oxygen requirement at this time saturating 97% on room air. Patient does smoke. He has no numbness, tingling, or focal weakness. No headache or dizziness, no abdominal pain, nausea, vomiting, diarrhea, or other complaints or concerns. Subjective My leg is leaking. Pt supine in bed when therapy entered room. Pt agreeable to OT eval this AM. Pt orient x3. pt reported they live with in SS home with 2 steps. pt uses RW for FM tasks. pt reports he still drives. pt is usually ind in ADLs and completes IADLs. Pt reports he has shower chair and grab bars. pt does not have bedside commode. pt agreed to FM task. pt went from supine in EOB with SBA. pt then completed STS with CGA with walker. pt then completed FM task of approx 10 ft with walker with CGA. pt demo fair endurance. pt then sat on EOB with CGA. Pt went from EOB to supine with Mod A x1 for LB. Pt left supine in bed with call light and all other needs within reach. Objective Patient Orientation Person,Place,Birthday Right Upper WFL Extremity Gross ROM Left Upper Extremity WFL Gross ROM Bed Mobility bed mobility-scooting,bed mobility - supine/sit Assist Level Supervision/Stand by Transfer Training Sit/Stand Transfer Assist Level Contact Guard/Hand Hold Chair Transfer Contact Guard/Hand Hold Ability Chair Transfer Sit to/from Ambulatory Technique Chair Transfer Standard Walker Assistive Devices Decrease in Yes Endurance Rehab OT IP prob,goals,plan Problems Date of Evaluation: 01/21/25 OT IP Problems Bed Mobility,Transfers,Balance,Self care,Safety Rehab Potential Rehab Potential Good Equipment Needs Assistive Devices Standard Walker Plan OT intervention Plan Bed Mobility,Transfers,Balance,Self care,Safety, Therapeutic Exercise OT Plan Frequency Daily Duration LOS Discharge Goals Bed Mobility Ability Independent Sit to Stand Chair Independent Transfer Ability Chair Transfer Independent Ability Chair Transfer Sit to/from Ambulatory Technique Chair Transfer Standard Walker Assistive Devices Feeding Ability Assist with Tray Set Up Commode/Toilet Raised Toilet Seat,Grab Bars Transfer Assistive Devices Decrease in No Endurance Discharge Plan OT Discharge Plan At this time, pt present below baseline in occupational performance and would benefit from skilled acute OT services and interventions while admitted at [facility] to address functional limitations in occupational performance. Once DC from [facility], pt could go home with and continue outpatient cardiac rehab at [facility]. Eval Complexity Eval Charge Codes 97382 - Moderate Complexity PHYSICIAN CERTIFICATION: I certify the specified therapy services for José Basurto JR are required, authorized, and reviewed every 30 days.
[2025-01-21] MEDS: CLOPIDOGREL 75MG TAB 75 MG PO (09:19)
[2025-01-21] MEDS: FUROSEMIDE 40MG/4ML VIAL 40 MG IV (09:19)
[2025-01-21] MEDS: SPIRONOLACTONE 25MG TABLET 25 MG PO (09:19)
--- NOTE | 2025-01-21 10:04 | HMH.PTEV ---
Physical Therapy Evaluation Rehab PT IP Evaluation Start: 01/21/25 08:17 Freq: ONCE Status: Active Protocol: Document 01/21/25 09:59 LUPILLO (Rec: 01/21/25 10:03 LUPILLO [id number]) Subjective/History History History Per H&P: This 79-year-old male who continues to smoke. He is on Lasix and spironolactone and several other cardiac meds. Medicaid Collection Specialist is in [facility]. 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 Talk to patient about his CODE STATUS he wants to be a full code. At this time I do agree with the ER provider needs to be placed. Combination of being able to give him diuretics without interfering with his kidney function too much.. Patient is in atrial fibs which is chronic quite irregular pulse with that though. Will have to continue to monitor electrolytes as we use diuretics to try to dry him up some. Patient also noted in the ER having a decreased ejection fraction. Will order a cardiac echo. Patient is noted for having elevated troponin to the troponin today is not higher than it normally is. Subjective Subjective Pt reports he is normally IND with household level mobility using a RW. Pt reports he lives with his in a single-story home with 2 KELSI. Pt reports his is able to provide 24/7 if needed. [facility] How much help from another person do you currently need... Turning from your None back to your side while in a flat bed without using bedrails? Moving from lying on A little back to sitting on the side of a flat bed without using bedrails? Moving to and from a None bed to a chair ( including a wheelchair)? Standing up from a None chair using your arms? (e.g., wheelchair, bedside chair) Walking in hospital A little room? Climbing 3-5 steps A little with a railing? Mobility Score 21 Mobility Level [facility] Mobility 6 Walk 10 steps or more Mobility Calculator Rehab PT IP Eval Objective Appearance Patient Behavior Appropriate,Cooperative Patient Orientation Person,Place,Situation Difficulty following none instructions Speech Pattern Clear Ambulation Patient Able to Yes Ambulate Ambulation Observation IP General Gait Antalgic Gait Pattern Observation Ambulation Distance 25 (feet) Ambulation Assistive Rolling Walker Device Ambulation Ability Contact Guard/Hand Hold Balance Ability to Arise Able, uses arms to help Sitting Balance Steady, safe Standing Balance Steady, wide stance Dynamic Sitting Good Balance Ability Dynamic Standing Fair Balance Ability Rehab PT IP prob,goals,plan Problems Date of Evaluation: 01/21/25 PT IP Problems Bed Mobility,Transfers,Gait,Balance,Self care,Safety Rehab Potential Rehab Potential Good Plan PT Intervention Plan Bed Mobility,Transfers,Gait,Balance,Self care,Safety, Therapeutic Exercise Other Intervention 1-2 times Plan PT Plan Frequency Daily Duration LOS Discharge Goals Bed Transfer Ability Independent Sit to Stand Chair Independent Transfer Ability Ambulation Assistive Rolling Walker Device Ambulation Distance 50 (feet) Discharge Plan PT Discharge Plan Pt presents below baseline in mobility. Pt would benefit from skilled acute care PT while at [facility] to prevent further functional decline and address deficits . Pt most appropriate to continue OP rehab services and 27/12 assistance at home from . Eval Complexity Eval Charge Codes 82165 - Moderate Complexity PHYSICIAN CERTIFICATION: I certify the specified therapy services for José Basurto JR are required, authorized, and reviewed every 30 days.
[2025-01-21] MEDS: DEFINITY US ECHO CONTRAST 2ML INJ 2 MG IV (10:57)
--- NOTE | 2025-01-21 11:27 | IR_ITS ---
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: Inpatient PROCEDURES Left heart catheterization Left ventriculogram Selective coronary angiogram Selective engagement of the saphenous vein graft to the circumflex artery Selective engage in the saphenous vein graft to the right coronary INDICATION Acute non-ST elevation myocardial infarction, Coronary artery disease, History of coronary bypass surgery Informed consent was obtained prior to the procedure. COMPLICATIONS NONE Estimated Blood Loss: LESS THAN 10 ML TECHNIQUE One percent lidocaine used to anesthetize the right anterior aspect of the wrist. The right radial artery was accessed via the Seldinger technique. A 6 Welsh sheath was placed in the right radial artery. 2.5 mg of Verapamil, 800 mcg of nitroglycerin, 1mg Lidocaine and 5000 U Heparin were given through the arterial sheath. The JL3 catheter was also used to perform left heart catheterization, left ventriculogram and selective coronary angiogram. The GAMBLE graft was noted to be occluded therefore the same catheter was used to perform selective venography of the saphenous vein graft to the circumflex artery and selective engagement of the saphenous vein graft to the right coronary artery at the end of the procedure the sheath was removed good hemostasis was achieved using Traclet band, patient was transferred to the postop holding area in stable condition. ANGIOGRAPHIC RESULTS The left main artery Has a stent in its proximal segment which extends into the LAD and is widely patent The left anterior descending artery Has a stent originating from the left main artery which extends through the proximal and midportion. The stent is widely patent with minimal in-stent restenosis with excellent distal transitioning. The LAD gives rise to 2 large diagonal arteries both which are widely patent The circumflex artery Is proximally patent but does not give rise to any substantive obtuse marginal arteries. 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 GDMT for systolic heart failure 2. Patient is having ventricular ectopy and will require high dose beta-blockers and likely [employer] BEAMER-D. It is anticipated patient will develop bradycardia with beta-blockers and will become pacemaker requiring 3. Official echocardiogram 4. Medical management for coronary artery disease 5. LDL less than 55 to be achieved with high intensity statin 6. IV diuresis for elevated LVEDP Electronically signed by : Demond Butler MD 01/21/2025 16:37:36
--- NOTE | 2025-01-21 12:05 | P.EN_ITS ---
Mr. Basurto is a 79-year-old male who presented to the emergency department yesterday evening with complaints of bilateral leg pain, generalized weakness, and edema. He has had multiple visits with us recently due to his CHF and coronary artery disease. He has a primary medical history of hypertension, hyperlipidemia, congestive heart failure, CAD, COPD, diabetic neuropathy, and history of a CABG. Workup was done in the emergency department that revealed elevated proBNP of 17,100?this is double what his baseline BNP normally is. Troponin was elevated at 0.07 but this was an improvement from his last admission with us. Kidney function slightly elevated with a creatinine of 1.2, this appears to be his baseline as well. Physical exam is remarkable for 1+ edema in bilateral lower extremities, vascular disease evident on exam. Legs appear to be oozing/weeping. Due to patient's generalized weakness, volume overload, dyspnea hospital medicine agreed to admit the patient for further management. Cardiology was consulted for further workup and evaluation of the patient. Patient recently had a heart cath, 11/19/2024 which showed potential decreased EF, although the echo at the time showed EF of greater than 55%. Heart cath also revealed loss of GAMBLE graft to LAD, heavily calcified ostial proximal and mid LAD?patient received successful stenting with intravascular lithotripsy. He also had noted elevated LVEDP at that time. After some discussion with the patient it appears that he may not have been compliant with his diuretics and possibly his other medications. It was decided to repeat a LHC this afternoon to ensure patent stenting. Due to elevated proBNP, Lasix 40 mg twice daily ordered IV. Barnes catheter was originally placed for accurate intake and out put, discontinued today, will continue to measure output. Patient was subsequently also admitted at the end of November for a GI bleed. At this time he was told to hold his Eliquis and aspirin, but to continue Plavix 75 mg daily due to recent stents. After discussion with the patient he is unsure if he is taking the Plavix or what medications he may be taking. Patient is anemic on admission, hemoglobin 8.1. Continuing to trend, CBC ordered for the a.m. Will transfuse for hemoglobin less than 7. Plan of care ongoing.
--- NOTE | 2025-01-21 12:28 | EXP.CARD.CON ---
History of Present Illness History of Present Illness Consult date: 01/21/25 Requesting physician: Deion Shipley Chief complaint: SOB and volume overload History of present illness: This is an 79-year-old white gentleman who presented to the emergency department with complaints of volume overload. The patient states that he became irritated with urinating so much that he stopped taking his Lasix and then 2 days later he was fluid overloaded with lower extremity edema in his legs leaking fluid. He denies any chest pain or pressure. He also denies any shortness of breath but he is very short of breath when he is talking and has to stop to catch his breath in the middle of the sentence. He denies any fever, chills, nausea, vomiting, diarrhea. [id number] echocardiogram in the emergency department showed a reduced ejection fraction but does not give an actual number. EF in November of this year was normal. Will repeat a limited echocardiogram today. His troponins are elevated consistent with a non-STEMI. He had recent coronary stenting and has stopped taking some of his medications, concerned that he may not have been taking his Plavix. [facility] Disclaimer: The information contained in this section may have been updated after the patient was seen, as this information can be updated by other users. Medical History (Updated 01/21/25 @ 12:34 by Elsa Boyce APRN) NSTEMI (non-ST elevated myocardial infarction) Acute on chronic heart failure with preserved ejection fraction (HFpEF) Obesity (BMI 30.0-34.9) Melena Acute upper GI bleed CAD (coronary artery disease) Left bundle branch block Spinal stenosis, cervical region Lumbar radiculopathy Low back pain Cervical radiculopathy Degenerative disc disease, cervical Numbness and tingling in right hand Numbness and tingling in left hand Noncompliance with medication regimen Acute on chronic heart failure with preserved ejection fraction (HFpEF) PVCs (premature ventricular contractions) Paroxysmal atrial fibrillation Kyphosis Osteoarthritis BPH (benign prostatic hyperplasia) Osteopenia DDD (degenerative disc disease) Peripheral neuropathy Chronic pain syndrome Anxiety Obesity HTN (hypertension) HLD (hyperlipidemia) Aneurysm History of alcohol abuse History of substance abuse Hypertension Neuropathy Surgical History History of coronary artery bypass graft Hx of cervical spinal arthrodesis S/p total knee replacement, bilateral History of heart bypass surgery Family History Other Cancer Social History (Updated 01/21/25 @ 02:29 by Tila Lazcano RN) Smoking Status: Current every day smoker tobacco type: cigarettes packs per day: 1 alcohol intake: never substance use type: denies use current occupational status: retired Travel in the last 8 weeks?: None household members: spouse housing: house current occupational exposures/hazards: No caffeine: Yes Have you lived/traveled outside [place] in past 30 days?: No Contact w/someone who lives/traveled outside US past 30 days?: No Exposure to someone with infectious disease in past 14 days?: No Do you have a fever (greater than 100.4 F or 38 C)?: No Have you tested positive for COVID-19?: No Exposed to someone with COVID-19 in past 14 days?: No Do you have a sore throat?: No Do you have a cough?: No Do you have any weakness?: No Are you experiencing any nausea/vomitting?: No Do you have any diarrhea?: No Are you experiencing any unusual bleeding?: No Do you have any muscle aches/pain?: No Do you have any abdominal pain?: No Are you experiencing loss of taste or smell?: No Review of Systems Review of Systems Review of systems:: pertinent systems reviewed and negative unless documented below Constitutional Constitutional: Reports system reviewed and no additional complaints, except as documented, Reports fatigue and Reports weakness Eyes Eyes: Reports system reviewed and no additional complaints, except as documented ENT Ears, Nose, Mouth, and Throat: Reports system reviewed and no additional complaints, except as documented *Cardiovascular Cardiovascular: Reports system reviewed and no additional complaints, except as documented, Denies chest pain, Denies dyspnea, Reports edema and Reports leg edema *Respiratory Respiratory: Reports system reviewed and no additional complaints, except as documented and Denies dyspnea *Gastrointestinal Gastrointestinal: Reports system reviewed and no additional complaints, except as documented *Genitourinary Genitourinary: Reports system reviewed and no additional complaints, except as documented *Musculoskeletal Musculoskeletal: Reports system reviewed and no additional complaints, except as documented Integumentary/Breasts Skin/Breast: Reports system reviewed and no additional complaints, except as documented *Neurologic Neurologic: Reports system reviewed and no additional complaints, except as documented, Reports as per HPI and Reports weakness Psychiatric Psychiatric: Reports system reviewed and no additional complaints, except as documented Endocrine Endocrine: Reports system reviewed and no additional complaints, except as documented and Reports fatigue Hematologic/Lymphatic Hematologic/Lymphatic: Reports system reviewed and no additional complaints, except as documented Allergic/Immunologic Allergic/Immunologic: Reports system reviewed and no additional complaints, except as documented Exam Data for Last 24 hours Vital signs and Labs for Last 24 Hours: Temp Pulse Resp BP Pulse Ox O2 Del Method 98.2 F 78 18 112/66 95 Room Air 01/21/25 08:00 01/21/25 09:39 01/21/25 08:00 01/21/25 08:00 01/21/25 08:00 01/21/25 11:58 Laboratory Results - last 24 hr 01/20/25 22:26: WBC 13.5 H, RBC 3.94 L, Hgb 8.9 L, Hct 30.0 L, MCV 76.1 L, MCH 22.6 L, MCHC 29.7 L, RDW 21.7 H, Plt Count 166, MPV 11.6 H, Neut % (Auto) 73.5, Lymph % (Auto) 11.4, [place] % (Auto) 8.5, Eos % (Auto) 3.1, Baso % (Auto) 1.0, Neut # (Auto) 9.9 H, Lymph # (Auto) 1.5, [place] # (Auto) 1.2 H, Eos # (Auto) 0.4, Baso # (Auto) 0.1, Sodium 139, Potassium 3.6, Chloride 110 H, Carbon Dioxide 19 L, Anion Gap 13.6, BUN 39 H, Creatinine 1.50 H, Estimated Creat Clear 58, Estimated GFR 45 L, Est GFR ( Amer) 54 L, Glucose 112 H, Calcium 8.4, Total Bilirubin 0.6, AST 40, ALT 37, Alkaline Phosphatase 141 H, Troponin I 0.07 H, NT-Pro-B Natriuret Pep 35588 H, Total Protein 6.8, Albumin 3.6, Globulin 3.2, Albumin/Globulin Ratio 1.1, HCV Ab GREGORY w/Rflx PCR Qn Negative, HIV Ag/Ab Combo Qual Negative 01/21/25 00:00: Urine Color Yellow, Urine Appearance Clear, Urine pH 6.0, Ur Specific [place] 1.020, Urine Protein 1+ A, Urine Glucose (UA) Negative, Urine Ketones Negative, Urine Blood Negative, Urine Nitrate Negative, Urine Bilirubin Negative, Urine Urobilinogen 0.2, Ur Leukocyte Esterase Negative, Urine RBC None, Urine WBC Occasional, Ur Squamous Epith Cells Occasional, Urine Bacteria None 01/21/25 01:40: Troponin I 0.07 H 01/21/25 05:23: WBC 12.8 H, RBC 3.69 L, Hgb 8.1 L, Hct 28.1 L, MCV 76.2 L, MCH 22.0 L, MCHC 28.8 L, RDW 21.6 H, Plt Count 150, MPV 11.3 H, Neut % (Auto) 74.0, Lymph % (Auto) 12.4, [place] % (Auto) 7.6, Eos % (Auto) 3.5, Baso % (Auto) 0.8, Neut # (Auto) 9.5 H, Lymph # (Auto) 1.6, [place] # (Auto) 1.0, Eos # (Auto) 0.5 H, Baso # (Auto) 0.1, Sodium 139, Potassium 3.3 L, Chloride 111 H, Carbon Dioxide 20 L, Anion Gap 11.3, BUN 38 H, Creatinine 1.40 H, Estimated Creat Clear 65, Estimated GFR 49 L, Est GFR ( Amer) 59, Glucose 94, Lactate 1.1, Calcium 8.3 L, Magnesium 1.7, Total Bilirubin 0.8, AST 28 D, ALT 31, Alkaline Phosphatase 125, Troponin I 0.06 H, Total Protein 6.3, Albumin 3.4 L, Globulin 2.9, Albumin/Globulin Ratio 1.2 I & O for Last 24 hours: Intake & Output 01/18/25 01/19/25 01/20/25 01/21/25 23:59 23:59 23:59 23:59 Intake Total 560 / 560 Output Total 2975 / 2975 Balance -2415 / -2415 Weight 230 lb 240 lb Constitutional Constitutional: no acute distress and average body habitus *Routine HEENT Exam Head: Present normocephalic and atraumatic ENT: Present mucous membranes moist *Routine Neck Exam Neck: Present supple, full ROM and normal carotid upstroke; Absent JVD, carotid bruit or lymphadenopathy *Routine Respiratory Exam Respiratory: Present rales, crackles and symmetric chest movement; Absent able to speak in complete sentences *Routine Cardiovascular Exam Cardiovascular: Present RRR, Normal S1 and Normal S2; Absent murmur or gallop *Routine Abdominal Exam Abdominal: Present soft and normoactive bowel sounds; Absent tenderness, distended or organomegaly *Routine Extremities Exam Extremities: Present full ROM, pulses intact and normal capillary refill; Absent cyanosis, clubbing or edema *Routine Skin Exam Skin: Present intact and warm; Absent erythema *Routine Neurological Exam Neurological: Present alert, oriented X3 and CN II-XII intact; Absent sensory deficit or motor deficit Routine Psychiatric Exam Psychiatric: Present normal affect Meds Home Medications and Allergies Home Medications ?Medication ?Instructions ?Recorded ?Confirmed ?Type duloxetine 60 mg capsule,delayed 60 mg PO DAILY 02/09/22 01/21/25 History release furosemide 40 mg tablet 40 mg PO DAILY PRN Edema 02/09/22 01/21/25 History pregabalin 200 mg capsule 200 mg PO BID 02/09/22 01/21/25 History albuterol sulfate 90 mcg/actuation 2 puff inhalation Q4HP PRN 11/16/24 01/21/25 History aerosol inhaler Shortness Of Breath aspirin 81 mg tablet,delayed 81 mg PO DAILY 30 days #30 tabs 11/19/24 01/21/25 Rx release Held on 12/02/24. Instructions: Pending follow-up with cardiology spironolactone 25 mg tablet 25 mg PO DAILY 30 days #30 tabs 11/19/24 01/21/25 Rx atorvastatin 80 mg tablet 80 mg PO HS 11/29/24 01/21/25 History clopidogrel 75 mg tablet 75 mg PO DAILY 01/21/25 01/21/25 History fluticasone 250 mcg-salmeterol 50 1 inh inhalation BID 01/21/25 01/21/25 History mcg/dose blistr powdr for inhalation (Wixela Inhub) New Prescriptions to Start Prescriptions: Allergies Allergy/AdvReac Type Severity Reaction Status Date / Time No Known Allergies Allergy Verified 12/13/24 13:42 Assessment and Plan *Assessment and plan (1) NSTEMI (non-ST elevated myocardial infarction): Status: Acute Category: Medical Code(s): I21.4 - Non-ST elevation (NSTEMI) myocardial infarction (2) CAD (coronary artery disease): Status: Acute Qualifiers: Coronary Disease-Associated Artery/Lesion type: [place] artery [place] vs. transplanted heart: [place] heart Associated angina: without angina Qualified Code(s): I25.10 - Atherosclerotic heart disease of [place] coronary artery without angina pectoris Category: Medical Code(s): I25.10 - Atherosclerotic heart disease of [place] coronary artery without angina pectoris (3) HLD (hyperlipidemia): Status: Acute Qualifiers: Hyperlipidemia type: mixed hyperlipidemia Qualified Code(s): E78.2 - Mixed hyperlipidemia Category: Medical Code(s): E78.5 - Hyperlipidemia, unspecified (4) HTN (hypertension): Status: Acute Qualifiers: Hypertension type: primary hypertension Qualified Code(s): I10 - Essential (primary) hypertension Category: Medical Code(s): I10 - Essential (primary) hypertension (5) Acute on chronic heart failure with preserved ejection fraction (HFpEF): Status: Acute Category: Medical Code(s): I50.33 - Acute on chronic diastolic (congestive) heart failure (6) Volume overload: Status: Acute Qualifiers: Hypervolemia type: other Qualified Code(s): E87.79 - Other fluid overload Category: Medical Code(s): E87.70 - Fluid overload, unspecified (7) Generalized weakness: Status: Acute Category: Medical Code(s): R53.1 - Weakness (8) History of coronary artery bypass graft: Status: Acute Category: Surgical Code(s): Z95.1 - Presence of aortocoronary bypass graft (9) Paroxysmal atrial fibrillation: Status: Acute Category: Medical Code(s): I48.0 - Paroxysmal atrial fibrillation (10) Acute blood loss anemia: Status: Acute Category: Medical Code(s): D62 - Acute posthemorrhagic anemia Plan Plan: 1. This patient was admitted to the hospital due to volume overload. His BNP was elevated at 17,100. He is being diuresed with IV Lasix 40 mg IV twice daily. Will continue with IV diuretics. 2. The patient reports that he stopped taking his medications because he was getting irritated that he was urinating so much. He specifically stopped his diuretics but also did not take some of his other medications which he cannot recall which ones they were. Concerned that he has not been taking his Plavix and he has fresh coronary stents. He now has an elevated troponin consistent with a non-STEMI. Will plan to proceed with left cardiac catheterization at this time to evaluate his coronary artery disease. 3. The patient has been educated the risk and benefits of proceeding with left cardiac catheterization. The patient verbalizes understanding and is agreeable in proceeding with the procedure. 4. The patient will be n.p.o. in preparation for left cardiac catheterization. 5. Nxitc-[id number] echocardiogram was done at the bedside in the emergency department. It is reported that his ejection fraction is grossly reduced. Will repeat a limited echocardiogram with Definity to evaluate his EF at this time. The patient may have had an interval reduction in his ejection fraction also concerning for worsening of his coronary artery disease. 6. His blood pressure is well-controlled. 7. His LDL goal is less than 55. His LDL is 86. Continue Lipitor. 8. continue spironolactone for HFpEF. 9. Once he is euvolemic consider Jardiance. 10. The patient is anemic. He had a recent GI bleed and his hemoglobin is stable. His aspirin is currently being held 11. Further recommendations will depend on the patient's response to treatment and results of his echocardiogram and left cardiac catheterization today. Thank you for the opportunity to have participate in the care of this patient. Our recommendations and orders are per Dr. Dumont.
[2025-01-21] MEDS: MAGNESIUM SULFATE IN WATER 2 GM/50 ML PIGGYBACK IV ×2 (12:32→13:58)
[2025-01-21] MEDS: HEPARIN 1,000 UNITS/500ML NS (CATH LAB) 3000 UNIT IV (16:04)
[2025-01-21] MEDS: HEPARIN 1,000 UNITS/ML 10ML VIAL (CATH LAB) 5000 UNIT IV (16:04)
[2025-01-21] MEDS: VERAPAMIL 2.5MG/ML 2ML VIAL 2.5 MG IV (16:04)
[2025-01-21] MEDS: NITROGLYCERIN 800MCG/8ML SYR (CATH LAB) 800 MCG IA (16:05)
[2025-01-21] MEDS: LIDOCAINE 1% 10ML MDV 10 ML IJ (16:05)
[2025-01-21] MEDS: 0.9 % SODIUM CHLORIDE 500 ML 25 ML IV (16:05)
[2025-01-21] MEDS: MIDAZOLAM HCL 1MG/ML 5ML VIAL 1 MG IV (16:05)
[2025-01-21] MEDS: FENTANYL 100MCG/2ML VIAL 50 MCG IV (16:06)
[2025-01-21] MEDS: IOPAMIDOL-370 (76%);100ML BOTTLE 50 ML IV (16:53)
--- NOTE | 2025-01-21 16:55 | PC.NURSE ---
Patient is alert and oriented. Patient denies any pain. Lung sounds remain diminished throughout bilaterally. Patient is on room air. Bowel sounds are active in all 4 quadrants. Patient has bilateral lower/upper extremity pitting edema +2. Patient call light within reach. Barnes catheter hanging at bedside by gravity with clear, yellow urine at bedside.
[2025-01-21] MEDS: SACUBITRIL/VALSARTAN 24-26MG TABLET 1 EACH PO (20:06)
[2025-01-21] MEDS: ATORVASTATIN 40MG TABLET 80 MG PO (20:07)
[2025-01-21] MEDS: PANTOPRAZOLE 40MG TABLET 40 MG PO (20:07)
[2025-01-22] VITALS (14 sets, daily range): BP systolic 96–147; BP diastolic 56–81; PULSE 45–80; RESP 16–18; TEMP 36.3–36.5; O2SAT 93–98
[2025-01-22] MEDS: IPRATROPIUM/ALBUTEROL 3 ML NEB IH ×6 (02:37→21:41)
[2025-01-22 06:31] LABS: Albumin Level 3.2 g/dl (3.5-5.0); Chloride 114 mmol/L (98-107); Potassium 4.2 mmoL/L (3.5-5.1); Sodium 142 mmol/L (136-145)
[2025-01-22 06:33] LABS: Blood Urea Nitrogen 38 mg/dl (9-20); Creatinine Clearance Estimated 70 mL/min (50-200); Creatinine,Serum 1.30 mg/dl (0.66-1.25); Estimated Glomerular Filt Rate 53 ml/min (>60); GFR (African American) 64 ML/MIN (>60)
[2025-01-22 06:34] LABS: Alanine Aminotransferase 25 U/L (12-78); Albumin/Globulin Ratio 1.1 (1.1-1.8); Alkaline Phosphatase 138 U/L (38-126); Anion Gap 11.2 mEq/L (5-15); Aspartate Amino Transferase 25 U/L (17-59); Bilirubin,Total 1.0 mg/dl (0.2-1.3); Calcium 8.1 mg/dl (8.4-10.2); Carbon Dioxide 21 mmol/L (22.0-30.0); Cholesterol 95 mg/dl (140-200); Globulin 2.9 g/dL (1.3-3.2); Glucose 91 mg/dl (74-100); HDL Cholesterol 18 mg/dl (40-60); Magnesium 2.5 mg/dl (1.6-2.3); Total Protein,Serum 6.1 g/dl (6.3-8.2); Triglycerides 81 mg/dl (30-150)
[2025-01-22 07:00] LABS: NT Pro Brain Natriuretic Pep. 7280 pg/mL (0-450)
[2025-01-22 07:25] LABS: Hematocrit 27.9 % (42.0-52.0); Hemoglobin 8.4 g/dL (14.1-18.0); Immature Granulocytes % 0.9 %; Mean Corpuscular HGB Conc 30.1 g/dL (31.8-35.4); Mean Corpuscular Hemoglobin 22.4 pg (27.0-31.2); Mean Corpuscular Volume 74.4 fl (80-94); Nucleated Red Blood Cells % 2.6 %; Platelet Count 169 K/mm3 (142-424); Red Blood Count 3.75 M/mm3 (4.60-6.20); Red Cell Distribution Width-SD 57.6 fL; White Blood Count 11.2 K/mm3 (4.8-10.8)
[2025-01-22] MEDS: FUROSEMIDE 40MG/4ML VIAL 40 MG IV ×2 (09:30→16:55)
[2025-01-22] MEDS: SPIRONOLACTONE 25MG TABLET 25 MG PO (09:30)
[2025-01-22] MEDS: SACUBITRIL/VALSARTAN 24-26MG TABLET 1 EACH PO ×2 (09:30→20:18)
[2025-01-22] MEDS: IRON SUCROSE COMPLEX 200 MG in 0.9 % SODIUM CHLORIDE 100 ML 220 MG IV (09:36)
[2025-01-22] MEDS: CLOPIDOGREL 75MG TAB 75 MG PO (09:44)
--- NOTE | 2025-01-22 10:12 | SW/DCPLANNER ---
Addendum entered by Salima Foley 01/23/25 15:09: Faxed patient's information to [facility] health and they are able to accept patient. Jackie John Addendum entered by Emma Jamison 01/23/25 11:49: Patient and are agreeable to home health services at time of discharge. CM will set up home health. Patient will discharge this afternoon. has requested that home health contact her phone to schedule appointment. Original Note: I spoke w/ patient regarding plans once medically stable for discharge. PT evaluated patient and recommended home w/ family and outpatient PT services. Patient stated that she is currently established w/ outpatient PT at [facility] and would like to continue this service. Patient has no further needs at this time. I will make sure patient has an outpatient PT appointment at discharge.
--- NOTE | 2025-01-22 12:36 | EXP.CARD.PN ---
Subjective Subjective Date: 01/22/25 Time: 10:30 Principal diagnosis: Acute HFrEF Interval history: This is an 79-year-old gentleman who is presented to the emergency department with complaints of fluid overload. The patient states that he had stopped taking his medications because he got irritated with going to the bathroom so much. He definitely stopped taking his Lasix and thinks he stopped taking some other medications as well but is not sure which medications he was not taking. He states that he did stop taking his metoprolol but he does not know why. When asked if the medications are making him feel bad he says no. I had a long discussion with the patient this morning about being compliant with his medications. He has new onset HFrEF and dilated cardiomyopathy. He needs to be on his heart failure medications to help improve his symptoms. The patient verbalizes understanding and states that he will restart what ever medications we put him on to help get his heart function better. He denies any chest pain or pressure this morning. He denies any shortness of breath. He states his edema has improved since being in the hospital. He denies any fever, chills, nausea, vomiting or diarrhea. Left cardiac catheterization yesterday showed patent coronary artery disease Exam Data for Last 24 hours Vital signs and Labs for Last 24 Hours: Temp Pulse Resp BP Pulse Ox O2 Del Method 97.7 F 80 18 125/60 98 Room Air 01/22/25 08:00 01/22/25 10:14 01/22/25 08:00 01/22/25 08:00 01/22/25 08:00 01/22/25 11:00 Laboratory Results - last 24 hr 01/22/25 05:41: WBC 11.2 H, RBC 3.75 L, Hgb 8.4 L, Hct 27.9 L, MCV 74.4 L, MCH 22.4 L, MCHC 30.1 L, RDW 22.0 H, Plt Count 169, MPV 11.2 H, Neut % (Auto) 79.4, Lymph % (Auto) 7.1 L, [place] % (Auto) 7.6, Eos % (Auto) 4.2, Baso % (Auto) 0.8, Neut # (Auto) 8.9 H, Lymph # (Auto) 0.8, [place] # (Auto) 0.9, Eos # (Auto) 0.5 H, Baso # (Auto) 0.1, Sodium 142, Potassium 4.2 D, Chloride 114 H, Carbon Dioxide 21 L, Anion Gap 11.2, BUN 38 H, Creatinine 1.30 H, Estimated Creat Clear 70, Estimated GFR 53 L, Est GFR ( Amer) 64, Glucose 91, Calcium 8.1 L, Magnesium 2.5 H D, Total Bilirubin 1.0, AST 25, ALT 25, Alkaline Phosphatase 138 H, NT-Pro-B Natriuret Pep 7280 H, Total Protein 6.1 L, Albumin 3.2 L, Globulin 2.9, Albumin/Globulin Ratio 1.1, Triglycerides 81, Cholesterol 95 L, LDL Cholesterol Direct 59.78 L, VLDL Cholesterol 16, HDL Cholesterol 18 L, Cholesterol/HDL Ratio 5.3 H I & O for Last 24 hours: Intake & Output 01/19/25 01/20/25 01/21/25 01/22/25 23:59 23:59 23:59 23:59 Intake Total 930 / 930 110 / 110 Output Total 2975 / 2975 Balance -2044 / -2044 110 / 110 Weight 230 lb 240 lb Constitutional Constitutional: no acute distress and average body habitus *Routine HEENT Exam Head: Present normocephalic and atraumatic ENT: Present mucous membranes moist *Routine Neck Exam Neck: Present supple, full ROM and normal carotid upstroke; Absent JVD, carotid bruit or lymphadenopathy *Routine Respiratory Exam Respiratory: Present rales, crackles and symmetric chest movement; Absent able to speak in complete sentences *Routine Cardiovascular Exam Cardiovascular: Present Normal S1, Normal S2 and irregularly irregular; Absent murmur or gallop *Routine Abdominal Exam Abdominal: Present soft and normoactive bowel sounds; Absent tenderness, distended or organomegaly *Routine Extremities Exam Extremities: Present full ROM, pulses intact and normal capillary refill; Absent cyanosis, clubbing or edema *Routine Skin Exam Skin: Present intact and warm; Absent erythema *Routine Neurological Exam Neurological: Present alert, oriented X3 and CN II-XII intact; Absent sensory deficit or motor deficit Routine Psychiatric Exam Psychiatric: Present normal affect Progress Note: A&P Assessment and plan (1) Acute HFrEF (heart failure with reduced ejection fraction): Status: Acute (2) Dilated cardiomyopathy: Status: Acute (3) Severe left ventricular systolic dysfunction (LVSD): Status: Acute (4) NSTEMI (non-ST elevated myocardial infarction): Status: Acute (5) CAD (coronary artery disease): Status: Acute (6) HLD (hyperlipidemia): Status: Acute (7) HTN (hypertension): Status: Acute (8) Volume overload: Status: Acute (9) Generalized weakness: Status: Acute (10) History of coronary artery bypass graft: Status: Acute (11) Paroxysmal atrial fibrillation: Status: Acute (12) Acute blood loss anemia: Status: Acute Assessment and Plan Assessment and Plan for All Diagnoses:: Plan: 1. This patient was admitted to the hospital due to volume overload. His BNP was elevated at 17,100. He is being diuresed with IV Lasix 40 mg IV twice daily. Will continue with IV diuretics. 2. Patient underwent left cardiac catheterization yesterday and was found to have patent coronary artery disease. Coronary artery disease is stable. Continue Plavix. 3. Echocardiogram shows an ejection fraction of 20%. He does have interval reduction in his ejection fraction. In November 2024 his EF was 50%. He is now down to 20%. The patient will need aggressive control of his acute HFrEF and dilated cardiomyopathy. 4. Continue Lasix and spironolactone for HFrEF and diuresis. 5. The patient has been started on Entresto 24/26 mg p.o. twice daily for HFrEF. 6. When the patient is more euvolemic, consider Jardiance. 7. The patient has stopped taking his metoprolol. He states that he does not really know why he stopped taking this medication but in a previous office note it says due to hypotension. Will restart him on Toprol XL 12.5 mg p.o. daily. 8. His blood pressure is well-controlled. 9. His LDL goal is less than 55. His LDL is 86. Continue Lipitor. 10. The patient is anemic. He had a recent GI bleed and his hemoglobin is stable. 11. The patient does have atrial fibrillation. He is currently rate controlled. His Eliquis has been stopped due to recent GI bleeding. Consider a watchman's device on an outpatient basis. 12. The patient does have severe LV dysfunction and dilated cardiomyopathy. His ejection fraction is 20%. Due to his severe LV dysfunction he is increased risk for sudden cardiac . The patient will need a LifeVest in place prior to discharge home. 13. Further recommendations will depend on the patient's response to treatment and results of his echocardiogram and left cardiac catheterization today. Thank you for the opportunity to have participate in the care of this patient. Our recommendations and orders are per Dr. Dumont.
--- NOTE | 2025-01-22 12:49 | P.PN_ITS ---
<Statement entered by Frank Kam MD - 01/22/25 16:16> Rounded on patient after nurse practitioner. Personally examined and interviewed patient. Agree with exam findings and care plan as documented. Subjective *Date: 01/22/25 *Time: 12:49 Interval history: Patient doing well this morning, sitting up in bed. Possible OUTREACH LIBRARIAN?D placement this afternoon due to critically low EF, 20%. Will wait on cardiology to further evaluate. Patient is amendable to the procedure if cards deems it is necessary. Patient currently n.p.o. awaiting possible procedure. Medical Exam Vital signs and Labs for Last 24 Hours: Vital Signs Temp Pulse Pulse Pulse Resp BP BP 01/22/25 11:00 01/22/25 10:14 80 01/22/25 10:14 78 01/22/25 09:00 01/22/25 08:00 60 01/22/25 08:00 01/22/25 08:00 97.7 F 50 L 18 125/60 01/22/25 06:39 01/22/25 05:59 74 01/22/25 05:59 78 01/22/25 05:59 01/22/25 05:00 01/22/25 04:00 97.5 F L 61 16 96/56 L 01/22/25 04:00 45 L 01/22/25 03:00 01/22/25 02:37 75 01/22/25 02:37 72 01/22/25 01:00 01/22/25 00:00 50 L 01/22/25 00:00 97.7 F 59 L 18 119/60 01/21/25 23:00 01/21/25 21:48 58 L 01/21/25 21:48 60 01/21/25 21:00 01/21/25 20:40 75 17 145/70 H 01/21/25 20:00 45 L 01/21/25 20:00 01/21/25 19:40 70 18 138/52 L 01/21/25 19:10 50 L 16 140/60 01/21/25 19:00 01/21/25 18:40 97.9 F 52 L 15 119/58 L 01/21/25 18:27 54 L 01/21/25 18:27 53 L 01/21/25 18:27 01/21/25 18:10 97.7 F 69 13 125/42 L 01/21/25 17:40 97.7 F 67 14 93/49 L 01/21/25 17:25 97.7 F 61 14 121/58 L 01/21/25 17:10 97.8 F 69 16 134/78 01/21/25 17:08 01/21/25 16:55 97.4 F L 64 14 135/55 L 01/21/25 16:40 72 16 149/94 H 01/21/25 16:35 74 18 137/72 01/21/25 16:31 65 20 135/94 H 01/21/25 16:30 65 20 135/94 H 01/21/25 16:25 60 76 16 143/100 H 01/21/25 14:58 01/21/25 13:30 Pulse Ox O2 Del Method 01/22/25 11:00 Room Air 01/22/25 10:14 01/22/25 10:14 01/22/25 09:00 Room Air 01/22/25 08:00 01/22/25 08:00 Room Air 01/22/25 08:00 98 Room Air 01/22/25 06:39 Room Air 01/22/25 05:59 01/22/25 05:59 01/22/25 05:59 93 L Room Air 01/22/25 05:00 Room Air 01/22/25 04:00 97 Room Air 01/22/25 04:00 01/22/25 03:00 Room Air 01/22/25 02:37 01/22/25 02:37 01/22/25 01:00 Room Air 01/22/25 00:00 01/22/25 00:00 94 L Room Air 01/21/25 23:00 Room Air 01/21/25 21:48 01/21/25 21:48 01/21/25 21:00 Room Air 01/21/25 20:40 98 Room Air 01/21/25 20:00 01/21/25 20:00 Room Air 01/21/25 19:40 98 Room Air 01/21/25 19:10 97 Room Air 01/21/25 19:00 Room Air 01/21/25 18:40 96 Room Air 01/21/25 18:27 01/21/25 18:27 01/21/25 18:27 97 Room Air 01/21/25 18:10 96 Room Air 01/21/25 17:40 95 Room Air 01/21/25 17:25 93 L Room Air 01/21/25 17:10 96 Room Air 01/21/25 17:08 Room Air 01/21/25 16:55 98 Room Air 01/21/25 16:40 93 L Room Air 01/21/25 16:35 91 L Room Air 01/21/25 16:31 92 L Room Air 01/21/25 16:30 92 L Room Air 01/21/25 16:25 92 L Room Air 01/21/25 14:58 Room Air 01/21/25 13:30 Room Air Intake and Output 01/21/25 01/22/25 01/22/25 23:59 07:59 15:59 Intake Total 270 / 930 110 / 110 Balance 270 / -2044 110 / 110 Intake: Intake, Oral Amount 270 / 830 Intake, Total IV Amount 110 / 110 Iron Sucrose Complex 200 mg In 110 / 110 0.9 % Sodium Chloride 100 ml @ 220 mls/hr IV ONCE ONE Rx#: [id number] Laboratory Results - last 24 hr 01/22/25 05:41: WBC 11.2 H, RBC 3.75 L, Hgb 8.4 L, Hct 27.9 L, MCV 74.4 L, MCH 22.4 L, MCHC 30.1 L, RDW 22.0 H, Plt Count 169, MPV 11.2 H, Neut % (Auto) 79.4, Lymph % (Auto) 7.1 L, [place] % (Auto) 7.6, Eos % (Auto) 4.2, Baso % (Auto) 0.8, Neut # (Auto) 8.9 H, Lymph # (Auto) 0.8, [place] # (Auto) 0.9, Eos # (Auto) 0.5 H, Baso # (Auto) 0.1, Sodium 142, Potassium 4.2 D, Chloride 114 H, Carbon Dioxide 21 L, Anion Gap 11.2, BUN 38 H, Creatinine 1.30 H, Estimated Creat Clear 70, Estimated GFR 53 L, Est GFR ( Amer) 64, Glucose 91, Calcium 8.1 L, Magnesium 2.5 H D, Total Bilirubin 1.0, AST 25, ALT 25, Alkaline Phosphatase 138 H, NT-Pro-B Natriuret Pep 7280 H, Total Protein 6.1 L, Albumin 3.2 L, Globulin 2.9, Albumin/Globulin Ratio 1.1, Triglycerides 81, Cholesterol 95 L, LDL Cholesterol Direct 59.78 L, VLDL Cholesterol 16, HDL Cholesterol 18 L, Cholesterol/HDL Ratio 5.3 H I & O for Labs for Last 24 Hours: Intake & Output 01/19/25 01/20/25 01/21/25 01/22/25 23:59 23:59 23:59 23:59 Intake Total 930 / 930 110 / 110 Output Total 2975 / 2975 Balance -2044 / -2044 110 / 110 Weight 104.326 kg 108.862 kg Constitutional: Present no acute distress, obese, chronically ill appearing and cooperative Head: Present atraumatic and normocephalic ENT: Present normal exam Respiratory: Present normal respiratory effort; Absent rhonchi, wheezes or crackles Comment:: well-healed sternotomy scar GI: Present soft and normal bowel sounds; Absent distention or tenderness Extremities: Present normal inspection, full ROM and edema (1+ bilateral lower extremity) Skin: Present intact; Absent erythema Neuro: Present Grossly Intact, alert, awake, oriented x 3 and moves all extremities Assessment and Plan *Assessment and plan (1) Acute on chronic heart failure with preserved ejection fraction (HFpEF): Status: Acute Category: Medical Code(s): I50.33 - Acute on chronic diastolic (congestive) heart failure (2) Severe left ventricular systolic dysfunction (LVSD): Status: Acute Category: Medical Code(s): I51.89 - Other ill-defined heart diseases (3) Dilated cardiomyopathy: Status: Acute Category: Medical Code(s): I42.0 - Dilated cardiomyopathy (4) Acute blood loss anemia: Status: Acute Category: Medical Code(s): D62 - Acute posthemorrhagic anemia (5) HLD (hyperlipidemia): Status: Acute Qualifiers: Hyperlipidemia type: mixed hyperlipidemia Qualified Code(s): E78.2 - Mixed hyperlipidemia Category: Medical Code(s): E78.5 - Hyperlipidemia, unspecified (6) HTN (hypertension): Status: Acute Qualifiers: Hypertension type: primary hypertension Qualified Code(s): I10 - Essential (primary) hypertension Category: Medical Code(s): I10 - Essential (primary) hypertension (7) Depression: Status: Acute Category: Medical Code(s): F32.A - Depression, unspecified Plan Mr. Basurto is a 79-year-old male who presented to the emergency department yesterday evening with complaints of bilateral leg pain, generalized weakness, and edema. He has had multiple visits with us recently due to his CHF and coronary artery disease. He has a primary medical history of hypertension, hyperlipidemia, congestive heart failure, CAD, COPD, diabetic neuropathy, and history of a CABG. Workup was done in the emergency department that revealed elevated proBNP of 17,100?this is double what his baseline BNP normally is. Troponin was elevated at 0.07 but this was an improvement from his last admission with us. Kidney function slightly elevated with a creatinine of 1.2, this appears to be his baseline as well. Physical exam is remarkable for 1+ edema in bilateral lower extremities, vascular disease evident on exam. Legs appear to be oozing/weeping. Due to patient's generalized weakness, volume overload, dyspnea hospital medicine agreed to admit the patient for further management. #Acute HFrEF #Cardiomyopathy #Severe left ventricular systolic dysfunction ?Cardiology was consulted for further workup and evaluation of the patient. Patient recently had a heart cath, 11/19/2024 which showed potential decreased EF, although the echo at the time showed EF of greater than 55%. Heart cath also revealed loss of GAMBLE graft to LAD, heavily calcified ostial proximal and mid LAD?patient received successful stenting with intravascular lithotripsy. He also had noted elevated LVEDP at that time. After some discussion with the patient it appears that he may not have been compliant with his diuretics and possibly his other medications. ?Patient did have LHC yesterday, CAD stable patent arteries. Patient repeat EF 20% significant decrease from November 2024 at 50%. ?BNP trending downward to 7280 today, continue Lasix 40 mg twice daily L and spironolactone 25 mg daily. ?Due to patient's severe LV dysfunction, cardiomyopathy, LVEF 20% he will need a LifeVest at discharge. ?Patient was started on Entresto twice daily. #Anemia ?Patient was subsequently also admitted at the end of November for a GI bleed. At this time he was told to hold his Eliquis and aspirin, but to continue Plavix 75 mg daily due to recent stents. After discussion with the patient he is unsure if he is taking the Plavix or what medications he may be taking. Hemoglobin tod ay 8.4. Continuing to trend, CBC ordered for the a.m. Will transfuse for hemoglobin less than 7. ?Venofer infusion today. #Hypertension #Hyperlipidemia ? Continue atorvastatin 80 mg at bedtime, start metoprolol succinate 12.5 mg daily. #Depression: Continue duloxetine 60 mg daily. Full code Cardiac diet Ambulate as tolerated VTE?holding due to anemia
--- NOTE | 2025-01-22 13:30 | [facility].PTWOUND ---
Rehab Inpt Wound Evaluation Rehab IP Wound Evaluation Start: 01/21/25 02:51 Freq: ONCE Status: Active Protocol: Document 01/22/25 13:26 PHOMILDRED (Rec: 01/22/25 13:30 PHORDARRYL [id number]) Rehab PT Wound Assessment Subjective Subjective 79-year-old male who continues to smoke. He is on Lasix and spironolactone and several other cardiac meds . 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 The patient became irritated with the fact he was always urinating so he had quit taking his Lasix and now is in fluid overload, lower extremities hard swollen and leaking., Patient also has Rales rhonchi throughout all lung lagos., Patient lives with his and does have a engineering assistant in [place]. Talk to patient about his CODE STATUS he wants to be a full code. At this time I do agree with the ER provider needs to be placed. Combination of being able to give him diuretics without interfering with his kidney function too much.. Patient is in atrial fibs which is chronic quite irregular pulse with that though. Will have to continue to monitor electrolytes as we use diuretics to try to dry him up some. Patient also noted in the ER having a decreased ejection fraction. Will order a cardiac echo. Patient is noted for having elevated troponin to the troponin today is not higher than it normally is. Pt presents with L lower leg wound with increased drainage upon admission. Wound Left Lateral Liu Wound Type Stasis Ulcer Is This a Chronic Yes Wound Wound Length (cm) 1.0 Wound Width (cm) 0.4 Wound Depth (cm) 0.1 Wound Bed Appearance [place] Wound Margins Well Defined Description Surrounding Tissue [place] Appearance Wound Drainage Serosanguineous Description Drainage Amount Small Drainage Odor No Odor Primary Dressing Composite Comment bordered foam dressing Wound Debridement Gauze,Mechanical Method Wound Debridement None Amount of Tissue Removed Dressing Change Tolerated Well Patient Tolerance Plan/Recommendation Comment Pt with decreased B LE edema this date and no need for debridement of any necrotic tissue at this time. Nsg staff caring for pt appropriately and no further need for PT wound care intervention. Thank you for allowing the wound care team to assist in the care of this patient. Eval Complexity Eval Charge Codes 97509 - High Complexity PHYSICIAN CERTIFICATION: I certify the specified therapy services for José Rondonkley JR are required, authorized, and reviewed every 30 days.
--- NOTE | 2025-01-22 19:03 | PC.NURSE ---
patient had a period of acute confusion this AM, notified FREDI and . patient was a/ox4 but could not remember why he was NPO, explained to patient reasons for being NPO. diet order placed later in shift, patient ate and has not had any periods of confusion noted. patient sat up in the chair for meals. lemos d/c and patient has voided after removal via toilet with stand by assist. right radial cath site C/D/I, bandaid applied. wound care evaluated patient and applied foam patch to left lower leg. patient currently sitting up in bed, has had no complaints this shift. tele in place. call light within reach, no further requests at this time.
[2025-01-22] MEDS: PANTOPRAZOLE 40MG TABLET 40 MG PO (20:18)
[2025-01-22] MEDS: ATORVASTATIN 40MG TABLET 80 MG PO (20:19)
[2025-01-22] MEDS: NICOTINE 21MG/24HR PATCH 21 MG TD (21:16)
[2025-01-23] VITALS: BP 106/60; PULSE 50; PULSE 67; RESP 16; TEMP 36.4; O2SAT 96
[2025-01-23 04:00] VITALS: BP 105/54; PULSE 50; PULSE 68; RESP 16; TEMP 36.3; O2SAT 98; BMI 34.0
--- NOTE | 2025-01-23 05:17 | PC.NURSE ---
Patient is alert and oriented. Skin tear to left lower leg, dressing in place, CDI. Lung sounds clear. Room air. Ambulates with walker standby assist. Patient has rested well throughout the night. Patient called out at 0430 stating he needed help getting his in the emergency room , spoke with patient, patient states he was told he was going home today, helped patient understand that the doctor will have to come in and put a discharge in. Patient understood and ask for some soup. Afib on tele with jazzmine Norton. Call light in reach.
[2025-01-23 06:37] LABS: Albumin Level 3.4 g/dl (3.5-5.0); Chloride 110 mmol/L (98-107)
[2025-01-23 06:38] LABS: Potassium 3.6 mmoL/L (3.5-5.1); Sodium 142 mmol/L (136-145)
[2025-01-23 06:40] LABS: Alanine Aminotransferase 22 U/L (12-78); Albumin/Globulin Ratio 1.2 (1.1-1.8); Anion Gap 11.6 mEq/L (5-15); Aspartate Amino Transferase 26 U/L (17-59); Blood Urea Nitrogen 32 mg/dl (9-20); Carbon Dioxide 24 mmol/L (22.0-30.0); Creatinine Clearance Estimated 69 mL/min (50-200); Creatinine,Serum 1.30 mg/dl (0.66-1.25); Estimated Glomerular Filt Rate 53 ml/min (>60); GFR (African American) 64 ML/MIN (>60); Globulin 2.9 g/dL (1.3-3.2); Hematocrit 30.6 % (42.0-52.0); Hemoglobin 9.2 g/dL (14.1-18.0); Immature Granulocytes % 1.0 %; Mean Corpuscular HGB Conc 30.1 g/dL (31.8-35.4); Mean Corpuscular Hemoglobin 22.4 pg (27.0-31.2); Mean Corpuscular Volume 74.5 fl (80-94); Nucleated Red Blood Cells % 2.3 %; Platelet Count 163 K/mm3 (142-424); Red Blood Count 4.11 M/mm3 (4.60-6.20); Red Cell Distribution Width-SD 58.6 fL; Total Protein,Serum 6.3 g/dl (6.3-8.2); White Blood Count 10.4 K/mm3 (4.8-10.8)
[2025-01-23 06:41] LABS: Alkaline Phosphatase 140 U/L (38-126); Bilirubin,Total 1.6 mg/dl (0.2-1.3); Calcium 8.4 mg/dl (8.4-10.2); Glucose 130 mg/dl (74-100)
[2025-01-23 08:00] VITALS: BP 101/56; PULSE 63; PULSE 70; RESP 16; TEMP 36.6; O2SAT 96
--- NOTE | 2025-01-23 08:34 | P.DS_ITS ---
<Statement entered by Frank Kam MD - 01/23/25 15:57> Rounded on patient after nurse practitioner. Personally examined and interviewed patient. Agree with exam findings and care plan as documented. General Admission date:: 01/21/25 Discharge date: 01/23/25 HPI HPI HPI: This 79-year-old male who continues to smoke. He is on Lasix and spironolactone and several other cardiac meds. [facility] Specialist is in [facility]. 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 Talk to patient about his CODE STATUS he wants to be a full code. At this time I do agree with the ER provider needs to be placed. Combination of being able to give him diuretics without interfering with his kidney function too much.. Patient is in atrial fibs which is chronic quite irregular pulse with that though. Will have to continue to monitor electrolytes as we use diuretics to try to dry him up some. Patient also noted in the ER having a decreased ejection fraction. Will order a cardiac echo. Patient is noted for having elevated troponin to the troponin today is not higher than it normally is. Hospital Course Hospital Course Hospital Course: Mr. Basurto is a 79-year-old male who presented to the emergency department with complaints of bilateral leg pain, generalized weakness, and edema. He has had multiple visits with us recently due to his CHF and coronary artery disease. He has a primary medical history of hypertension, hyperlipidemia, congestive heart failure, CAD, COPD, diabetic neuropathy, and history of a CABG. Workup was done in the emergency department that revealed elevated proBNP of 17,100?this is d ouble what his baseline BNP normally is. Troponin was elevated at 0.07 but this was an improvement from his last admission with us. Kidney function slightly elevated with a creatinine of 1.2, this appears to be his baseline as well. Physical exam is remarkable for 1+ edema in bilateral lower extremities, vascular disease evident on exam. Legs appear to be oozing/weeping. Due to patient's generalized weakness, volume overload, dyspnea hospital medicine agreed to admit the patient for further management. #Acute HFrEF #Cardiomyopathy #Severe left ventricular systolic dysfunction ?Patient was given Lasix 40 mg twice daily L during admission, -3.5 L. Will continue this at discharge. ?Cardiology was consulted for further workup and evaluation of the patient. Patient recently had a heart cath, 11/19/2024 which showed potential decreased EF, although the echo at the time showed EF of greater than 55%. Heart cath also revealed loss of GAMBLE graft to LAD, heavily calcified ostial proximal and mid LAD?patient received successful stenting with intravascular lithotripsy. He also had noted elevated LVEDP at that time. After some discussion with the patient it appears that he may not have been compliant with his diuretics and possibly his other medications. ?Patient had LHC yesterday which showed stable CAD with patent arteries. Patient did have significantly reduced EF of 20%. Due to new decreased EF below 30% and LifeVest was recommended, patient was agreeable. Patient was fitted for LifeVest at discharge. Patient was explained risk versus benefits of LifeVest. Patient and both educated and report understanding. ?Patient was started on Entresto twice daily, Lasix 40 mg BIDL, and spironolactone 25 mg daily. Discussed with patient and family the importance of medication adherence. Patient will follow-up with cardiology within 1 week. #Anemia ?Patient was subsequently also admitted at the end of November for a GI bleed. At this time he was told to hold his Eliquis and aspirin, but to continue Plavix 75 mg daily due to recent stents. After discussion with the patient he is unsure if he is taking the Plavix or what medications he may be taking. ?Patient received Venofer infusion yesterday, hemoglobin stable today at 9.1. Patient should continue to follow-up with GI in [place] who he sees on a regular basis. ?Patient should continue pantoprazole 40 mg daily at discharge. #Hypertension #Hyperlipidemia ? Continue atorvastatin 80 mg at bedtime. #Depression: Continue duloxetine 60 mg daily. Continue Lyrica 2200 mg twice daily. Total time spent on discharge 35 minutes in counseling, documentation, chart review, and direct care with patient. Exam Data for Last 24 hours Vital signs and Labs for Last 24 Hours: Temp Pulse Resp BP Pulse Ox O2 Del Method 97.4 F L 68 16 105/54 L 98 Room Air 01/23/25 04:00 01/23/25 04:00 01/23/25 04:00 01/23/25 04:00 01/23/25 04:00 01/23/25 06:55 Laboratory Results - last 24 hr 01/23/25 05:55: WBC 10.4, RBC 4.11 L, Hgb 9.2 L, Hct 30.6 L, MCV 74.5 L, MCH 22.4 L, MCHC 30.1 L, RDW 22.2 H, Plt Count 163, MPV 11.1 H, Neut % (Auto) 81.3 H , Lymph % (Auto) 6.1 L, [place]igg % (Auto) 6.7, Eos % (Auto) 4.3, Baso % (Auto) 0.6, Neut # (Auto) 8.5 H, Lymph # (Auto) 0.6 L, [place]igg # (Auto) 0.7, Eos # (Auto) 0.5 H , Baso # (Auto) 0.1, Sodium 142, Potassium 3.6, Chloride 110 H, Carbon Dioxide 24, Anion Gap 11.6, BUN 32 H, Creatinine 1.30 H, Estimated Creat Clear 69, Estimated GFR 53 L, Est GFR ( Amer) 64, Glucose 130 H, Calcium 8.4, Total Bilirubin 1.6 H, AST 26, ALT 22, Alkaline Phosphatase 140 H, Total Protein 6.3, Albumin 3.4 L, Globulin 2.9, Albumin/Globulin Ratio 1.2 I & O for Last 24 hours: Intake & Output 01/20/25 01/21/25 01/22/25 01/23/25 23:59 23:59 23:59 23:59 Intake Total 930 / 930 650 / 830 180 / 180 Output Total 2975 / 2975 1999 0 / 0 Balance -2045 / -2045 -1350 / -1170 180 / 180 Weight 104.326 kg 108.862 kg 107.756 kg Constitutional Constitutional: no acute distress and average body habitus *Routine HEENT Exam Head: Present normocephalic and atraumatic ENT: Present mucous membranes moist *Routine Neck Exam Neck: Present supple, full ROM and normal carotid upstroke; Absent JVD, carotid bruit or lymphadenopathy *Routine Respiratory Exam Respiratory: Present rales, crackles and symmetric chest movement; Absent able to speak in complete sentences *Routine Cardiovascular Exam Cardiovascular: Present Normal S1, Normal S2 and irregularly irregular; Absent murmur or gallop *Routine Abdominal Exam Abdominal: Present soft and normoactive bowel sounds; Absent tenderness, distended or organomegaly *Routine Extremities Exam Extremities: Present edema, full ROM, pulses intact and normal capillary refill; Absent cyanosis or clubbing *Routine Skin Exam Skin: Present intact, erythema (Bilateral lower extremity below the knee) and warm *Routine Neurological Exam Neurological: Present alert, oriented X3 and CN II-XII intact; Absent sensory deficit or motor deficit Routine Psychiatric Exam Psychiatric: Present normal affect Results Data Completed and Pending Labs on day of discharge: Labs from last 24 hours 01/23/25 05:55 WBC 10.4 RBC 4.11 L Hgb 9.2 L Hct 30.6 L MCV 74.5 L MCH 22.4 L MCHC 30.1 L RDW 22.2 H Plt Count 163 MPV 11.1 H Neut % (Auto) 81.3 H Lymph % (Auto) 6.1 L Trigg % (Auto) 6.7 Eos % (Auto) 4.3 Baso % (Auto) 0.6 Neut # (Auto) 8.5 H Lymph # (Auto) 0.6 L Trigg # (Auto) 0.7 Eos # (Auto) 0.5 H Baso # (Auto) 0.1 Sodium 142 Potassium 3.6 Chloride 110 H Carbon Dioxide 24 Anion Gap 11.6 BUN 32 H Creatinine 1.30 H Estimated Creat Clear 69 Estimated GFR 53 L Est GFR ( Amer) 64 Glucose 130 H Calcium 8.4 Total Bilirubin 1.6 H AST 26 ALT 22 Alkaline Phosphatase 140 H Total Protein 6.3 Albumin 3.4 L Globulin 2.9 Albumin/Globulin Ratio 1.2 DS: Diagnosis Discharge Diagnosis (1) Acute on chronic heart failure with preserved ejection fraction (HFpEF): Status: Acute Code(s): I50.33 - Acute on chronic diastolic (congestive) heart failure (2) Severe left ventricular systolic dysfunction (LVSD): Status: Acute Code(s): I51.89 - Other ill-defined heart diseases (3) Dilated cardiomyopathy: Status: Acute Code(s): I42.0 - Dilated cardiomyopathy (4) Acute blood loss anemia: Status: Acute Code(s): D62 - Acute posthemorrhagic anemia (5) HLD (hyperlipidemia): Status: Acute Code(s): E78.5 - Hyperlipidemia, unspecified Qualifiers: Hyperlipidemia type: mixed hyperlipidemia Qualified Code(s): E78.2 - Mixed hyperlipidemia (6) HTN (hypertension): Status: Acute Code(s): I10 - Essential (primary) hypertension Qualifiers: Hypertension type: primary hypertension Qualified Code(s): I10 - Essential (primary) hypertension (7) Depression: Status: Acute Code(s): F32.A - Depression, unspecified Meds Home Medications and Allergies Home Medications ?Medication ?Instructions ?Recorded ?Confirmed ?Type duloxetine 60 mg capsule,delayed 60 mg PO DAILY 01/21/25 History release pregabalin 200 mg capsule 200 mg PO BID 02/09/2201/21 History albuterol sulfate 90 mcg/actuation 2 puff inhalation Q 4HP PRN 11/16/24 01/21/25 History aerosol inhaler Shortness Of Breath aspirin 81 mg tablet,delayed 81 mg PO DAILY 30 days #3 0 tabs 11/19/24 01/21/25 Rx release atorvastatin 80 mg tablet 80 mg PO HS 11/29/24 5 History clopidogrel 75 mg tablet 75 mg PO DAILY 01/21/2501/04 History fluticasone 250 mcg-salmeterol 50 1 inh inhalation BID 01/21/25 01/21/25 History mcg/dose blistr powdr for inhalation (Wixela Inhub) furosemide 40 mg tablet 40 mg PO BIDL 30 days #60 ta bs 01/23/25 Rx pantoprazole 40 mg tablet,delayed 40 mg PO DAILY #30 t abs 01/23/25 Rx release (Protonix) sacubitril 24 mg-valsartan 26 mg 1 tab PO BID #60 tabs 01/23/25 Rx tablet (Entresto) spironolactone 25 mg tablet 25 mg PO DAILY 30 days #30 tabs 01/23/25 Rx New Prescriptions to Start Prescriptions: Frank Romeo pantoprazole [Protonix] Lizet Sol sacubitril-valsartan [Entresto] Frank Kam spironolactone Frank Kam Allergies Allergy/AdvReac Type Severity Reaction Status Date / Time No Known Allergies Allergy Verified 12/13/24 13:42 Discharge Plan Disposition Patient Disposition: Home Health Service Condition: Fair Discharge Order Discharge Orders: Discharge Order (Routine); Ordered 01/23/25 Ordered By: Frank Kam Follow up Plan Follow up with: Raphael Mendoza MD [Primary Care Provider, Medical] - 01/25/25 1:15 pm Demond Butler MD [Staff Physician, Cardiology] - 01/31/25 2:45 pm Prescriptions/Medication Reconciliation: New sacubitril-valsartan [Entresto] 24-26 mg Tablet 1 tab PO BID Qty: 60 0RF pantoprazole [Protonix] 40 mg tablet,delayed release (DR/EC) 40 mg PO DAILY Qty: 30 0RF Continued pregabalin 200 mg capsule 200 mg PO BID Patient Comments: TAKE 1 CAPSULE BY MOUTH THREE TIMES A DAY duloxetine 60 mg capsule,delayed release(DR/EC) 60 mg PO DAILY albuterol sulfate 90 mcg/actuation HFA aerosol inhaler 2 puff INHALATION Q4HP PRN (Reason: Shortness Of Breath) Patient Comments: TAKE 2 PUFFS BY MOUTH EVERY 4 TO 6 HOURS NEEDED FOR WHEEZE aspirin 81 mg Tablet,Delayed Release (Dr/Ec) 81 mg PO DAILY 30 Days Qty: 30 0RF atorvastatin 80 mg tablet 80 mg PO HS fluticasone propion-salmeterol [Wixela Inhub] 250-50 mcg/dose blister with device 1 inh INHALATION BID Patient Comments: INHALE 1 PUFF TWICE A DAY clopidogrel 75 mg tablet 75 mg PO DAILY Patient Comments: TAKE ONE TABLET BY MOUTH EVERY DAY spironolactone 25 mg Tablet 25 mg PO DAILY 30 Days Qty: 30 0RF Changed furosemide 40 mg tablet 40 mg PO BIDL 30 Days Qty: 60 0RF Patient Comments: TAKE 1 TABLET BY MOUTH EVERY DAY Problem Reconciliation Problems Reviewed?: Yes Patient Discharge Instructions ACTIVITY: Continue current activity DIET: continue same diet Additional Instructions: Patient received 1 dose IV Venofer on 01/21/2025 Patient Instructions: Heart Failure, Cardiac Catheterization, DI for Heart Failure, DI for Fatigue, Moderate Sedation, Stop Light Heart Failure, Stop Light Infection Print Language: Albanian Providers Primary Care Provider: Raphael Mendoza Admit Provider: Deion Shipley Attending Provider: Deion Shipley
--- NOTE | 2025-01-23 08:54 | PC.NURSE ---
Provider Lizet notified of AM blood pressure and morning meds ordered for patient. STRINGS TEACHER stated to hold spironolactone and give metoprolol and lasix.
[2025-01-23] MEDS: CLOPIDOGREL 75MG TAB 75 MG PO (08:59)
[2025-01-23] MEDS: SACUBITRIL/VALSARTAN 24-26MG TABLET 1 EACH PO (08:59)
[2025-01-23] MEDS: FUROSEMIDE 40 MG TABLET PO (09:45)
--- NOTE | 2025-01-23 11:34 | CARE MANAGER ---
Current Medications Acetaminophen (Acetaminophen 325mg Tab) 650 mg PO Q4HP PRN PRN Reason: Fever or Mild Pain (1-3) Stop: 02/20/25 01:18 Albuterol/Ipratropium (Ipratropium/Albuterol 3 Ml Neb) 3 ml IH Q4HP PRN PRN Reason: Shortness Of Breath Or Wheezing Stop: 02/21/25 21:45 Atorvastatin Calcium (Atorvastatin 40mg Tablet) 80 mg PO HS SHANTA Stop: 02/20/25 20:59 Last Admin: 01/22/25 20:19 Dose: 80 mg Clopidogrel Bisulfate (Clopidogrel 75mg Tab) 75 mg PO DAILY SHANTA Stop: 02/20/25 08:59 Last Admin: 01/23/25 08:59 Dose: 75 mg Duloxetine HCl (Duloxetine 30mg Capsule.Dr) 60 mg PO DAILY SHANTA Stop: 02/20/25 08:59 Last Admin: 01/23/25 08:59 Dose: 60 mg Furosemide (Furosemide 40 Mg Tablet) 40 mg PO BIDL SHANTA Stop: 02/22/25 08:59 Last Admin: 01/23/25 09:45 Dose: 40 mg Nicotine (Nicotine 21mg/24hr Patch) 21 mg TD DAILYP PRN PRN Reason: Nicotine Cravings Stop: 02/21/25 20:38 Last Admin: 01/22/25 21:16 Dose: 21 mg Ondansetron HCl (Ondansetron 4mg/2ml Vial) 4 mg IV Q8HP PRN PRN Reason: Nausea Stop: 02/20/25 01:18 Pantoprazole Sodium (Pantoprazole 40mg Tablet) 40 mg PO HS SHANTA Stop: 02/20/25 20:59 Last Admin: 01/22/25 20:18 Dose: 40 mg Sacubitril/Valsartan (Sacubitril/Valsartan 24-26mg Tablet) 1 each PO BID SHANTA Stop: 02/20/25 20:59 Last Admin: 01/23/25 08:59 Dose: 1 each Fluticasone/Salmeterol (Fluticasone/Salmeterol 250/50mcg Diskus) 1 puff IH BIDRT SHANTA Stop: 02/20/25 08:59 Last Admin: 01/23/25 06:11 Dose: 1 puff Sodium Chloride (Sodium Chloride 0.9% 10ml Flush Syringe) 10 ml IV NEEDED PRN PRN Reason: Maintain IV Site Stop: 02/20/25 10:54 Spironolactone (Spironolactone 25mg Tablet) 25 mg PO DAILY [facility] Stop: 02/20/25 08:59 Last Admin: 01/23/25 09:44 Dose: Not Given
--- NOTE | 2025-01-23 12:28 | P.PN_ITS ---
Subjective Subjective Date: 01/23/25 Time: 11:30 Principal diagnosis: Acute HFrEF Interval history: This is an 79-year-old gentleman who is presented to the emergency department with complaints of fluid overload. The patient states that he had stopped taking his medications because he got irritated with going to the bathroom so much. He definitely stopped taking his Lasix and thinks he stopped taking some other medications as well but is not sure which medications he was not taking. He states that he did stop taking his metoprolol but he does not know why. When asked if the medications are making him feel bad, he says no. He has new onset HFrEF and dilated cardiomyopathy. He needs to be on his heart failure medications to help improve his symptoms. I have had a long discussion with the patient and his this morning about being compliant with his medications. His does report that he has not taken his medicines for a long time. The patient verbalizes understanding and states that he will restart what ever medi cations we put him on to help get his heart function better. He denies any chest pain or pressure this morning. He denies any shortness of breath. He states his edema has improved since being in the hospital. He denies any fever, chills, nausea, vomiting or diarrhea. Exam Data for Last 24 hours Vital signs and Labs for Last 24 Hours: Temp Pulse Resp BP Pulse Ox O2 Del Method 97.9 F 63 16 101/56 L 96 Room Air 01/23/25 08:00 01/23/25 08:00 01/23/25 08:00 01/23/25 08:00 01/23/25 08:00 01/23/25 11:00 Laboratory Results - last 24 hr 01/23/25 05:55: WBC 10.4, RBC 4.11 L, Hgb 9.2 L, Hct 30.6 L, MCV 74.5 L, MCH 22.4 L, MCHC 30.1 L, RDW 22.2 H, Plt Count 163, MPV 11.1 H, Neut % (Auto) 81.3 H , Lymph % (Auto) 6.1 L, [place] % (Auto) 6.7, Eos % (Auto) 4.3, Baso % (Auto) 0.6, Neut # (Auto) 8.5 H, Lymph # (Auto) 0.6 L, [place] # (Auto) 0.7, Eos # (Auto) 0.5 H , Baso # (Auto) 0.1, Sodium 142, Potassium 3.6, Chloride 110 H, Carbon Dioxide 24, Anion Gap 11.6, BUN 32 H, Creatinine 1.30 H, Estimated Creat Clear 69, Estimated GFR 53 L, Est GFR ( Amer) 64, Glucose 130 H, Calcium 8.4, Total Bilirubin 1.6 H, AST 26, ALT 22, Alkaline Phosphatase 140 H, Total Protein 6.3, Albumin 3.4 L, Globulin 2.9, Albumin/Globulin Ratio 1.2 I & O for Last 24 hours: Intake & Output 01/20/25 01/21/25 01/22/25 01/23/25 23:59 23:59 23:59 23:59 Intake Total 955 / 955 650 / 830 180 / 180 Output Total 2975 / 2975 1999 0 / 0 Balance -2020 / -2020 -1350 / -1170 180 / 180 Weight 230 lb 240 lb 237 lb 8.981 oz Constitutional Constitutional: no acute distress and average body habitus *Routine HEENT Exam Head: Present normocephalic and atraumatic ENT: Present mucous membranes moist *Routine Neck Exam Neck: Present supple, full ROM and normal carotid upstroke; Absent JVD, carotid bruit or lymphadenopathy *Routine Respiratory Exam Respiratory: Present rales, crackles and symmetric chest movement; Absent able to speak in complete sentences *Routine Cardiovascular Exam Cardiovascular: Present Normal S1, Normal S2 and irregularly irregular; Absent murmur or gallop *Routine Abdominal Exam Abdominal: Present soft and normoactive bowel sounds; Absent tenderness, distended or organomegaly *Routine Extremities Exam Extremities: Present edema, full ROM, pulses intact and normal capillary refill; Absent cyanosis or clubbing *Routine Skin Exam Skin: Present intact and warm; Absent erythema *Routine Neurological Exam Neurological: Present alert, oriented X3 and CN II-XII intact; Absent sensory deficit or motor deficit Routine Psychiatric Exam Psychiatric: Present normal affect Progress Note: A&P Assessment and plan (1) Acute HFrEF (heart failure with reduced ejection fraction): Status: Acute (2) Severe left ventricular systolic dysfunction (LVSD): Status: Acute (3) Dilated cardiomyopathy: Status: Acute (4) CAD (coronary artery disease): Status: Acute (5) Acute blood loss anemia: Status: Acute (6) HLD (hyperlipidemia): Status: Acute (7) HTN (hypertension): Status: Acute (8) Paroxysmal atrial fibrillation: Status: Acute (9) Volume overload: Status: Acute Assessment and Plan Assessment and Plan for All Diagnoses:: Plan: 1. The patient was admitted to the hospital due to volume overload. His BNP was elevated at 17,100. He has been diuresed with IV Lasix. Will stop IV Lasix and start Lasix 40 mg p.o. twice daily today. 2. Patient underwent left cardiac catheterization during this hospitalization and was found to have patent coronary artery disease. Coronary artery disease is stable. Continue Plavix. 3. Echocardiogram shows an ejection fraction of 20%. He does have interval reduction in his ejection fraction. In November 2024 his EF was 50%. He is now down to 20%. The patient will need aggressive diuresis for acute HFrEF and dilated cardiomyopathy. 4. Continue spironolactone for HFrEF and diuresis. 5. Continue Entresto for HFrEF. 6. When the patient is more euvolemic, consider Jardiance. This can be done on an outpatient basis. 7. Stop metoprolol due to his heart rate and blood pressure both being on the lower side. 8. His blood pressure is well-controlled. 9. His LDL goal is less than 55. His LDL is 86. Continue Lipitor. 10. The patient is anemic. He had a recent GI bleed and his hemoglobin is stable. 11. The patient does have atrial fibrillation. He is currently rate controlled. His Eliquis has been stopped due to recent GI bleeding. Consider a watchman's device on an outpatient basis. 12. The patient does have severe LV dysfunction and dilated cardiomyopathy. His ejection fraction is 20%. Due to his severe LV dysfunction he is increased risk for sudden cardiac . The patient will need a LifeVest in place prior to discharge home. He has been fitted for this today 13. No further recommendations at this time from a cardiac standpoint. He will need to follow-up in cardiology clinic in 1 to 2 weeks on an outpatient basis. The patient can be discharged on the following cardiac medications: Lipitor 80 mg p.o. nightly Plavix 75 mg daily Lasix 40 mg p.o. twice daily Protonix 40 mg p.o. daily Entresto 1 tablet p.o. twice daily Spironolactone 25 mg daily Stop metoprolol due to blood pressure and heart rate being on the lower side Consider Jardiance on an outpatient basis once he is more euvolemic Thank you for the opportunity to have participate in the care of this patient. Our recommendations and orders are per Dr. Dumont.
--- NOTE | 2025-01-24 10:19 | SW/DCPLANNER ---
Spoke with patient's on the phone. Patient's stated that he is weak. Patient's stated that she is aware of his upcoming appointments. Patient's stated that she was able to get his new medicine picked up from clinic pharmacy. Patient's stated that she has no concerns or questions at this time. I asked the to call me if she has not heard from Home health by tomorrow. Jackie John
== END 2025-01-23 12:28 | disposition home health service (06) ==
LOC: ER 22:42 → 2ND 01-21 01:08
PROVIDERS: Emergency Medicine; Internal Medicine; Nurse Practitioner Family; Admitting Provider Student in an Organized Health Care Education/Training Program; Emergency Provider Student in an Organized Health Care Education/Training Program; PCP Family Medicine; Visit Provider Student in an Organized Health Care Education/Training Program
PROC: 4A023N7 Measurement of Cardiac Sampling and Pressure, Left Heart, Percutaneous Approach (ICD-10-PCS; CPT 93452; principal; 2025-01-21 19:00)
DX: I21.4 Non-ST elevation (NSTEMI) myocardial infarction (principal); I25.10 Atherosclerotic heart disease of native coronary artery without angina pectoris; I11.0 Hypertensive heart disease with heart failure; I50.33 Acute on chronic diastolic (congestive) heart failure; E78.2 Mixed hyperlipidemia; E87.79 Other fluid overload; R53.1 Weakness; Z95.1 Presence of aortocoronary bypass graft; I48.0 Paroxysmal atrial fibrillation; D62 Acute posthemorrhagic anemia; R79.89 Other specified abnormal findings of blood chemistry; E66.9 Obesity, unspecified; I42.0 Dilated cardiomyopathy; F32.A Depression, unspecified; F17.210 Nicotine dependence, cigarettes, uncomplicated; T50.1X6A Underdosing of loop [high-ceiling] diuretics, initial encounter; Z91.148 Patient's other noncompliance with medication regimen for other reason; Z79.899 Other long term (current) drug therapy; Z68.34 Body mass index [BMI] 34.0-34.9, adult
CPT/HCPCS: 93459; 36415; 51702; 71045; 80053; 80061; 81001; 83605; 83735; 83880; 84484; 85025; 86803; 87389; 93005; 93308; 94640; 96360; 96361; 96365; 97162; 97166; 97530; 97535; 99152; 99285; C1725; C1760; C1769; G0378; J1200; J1644; J1650; J1756; J1938; J2003; J2250; J3010; J3475; J7040; Q9957; Q9967

== ENCOUNTER 2025-02-13 09:02 | Outpatient (CLI) | payer MEDICARE, OTHER, SELFPAY ==
--- OUTSIDE RECORDS SUMMARY | 2025-01-30 10:43 | XMS_ITS | Encounter Summary ---
Author Organization [facility] Address [address] [place] [id number] Care Team Providers Care [employer] Manager Name Role Phone Raphael Mendoza MD Primary Care Provider [phone] Reason for Visit * Reason Comments Medication Reaction * Auth/Cert (Routine) Specialty Diagnoses / Procedures Referred By Contac t Referred To Contact Diagnoses Drug reaction Anaphylaxis Referral ID Status Reason Start Date Expiration Date Visits Re quested Visits Authorized [id number] 1 1 Encounter Details Date Type Department Care Team (Late st Contact Info) Description 01/30/2025 10:43 AM EDT - 01/31/2025 10:55 AM EDT Hospital Encounter [address] [place] [id number] Pedrito Hu MD [address]40 [facility] [place] [address] Chandrakant Jamison MD [address] [address] Maritza Contreras DO 1780 [facility] [address] [place] [address] Episode of unresponsiveness (Primary Dx); Acute kidney injury superimposed on chronic kidney disease; History of CAD (coronary artery disease); Abnormal electrocardiogram (ECG) (EKG); Transient hypotension; Former smoker; Chronic anemia Discharge Disposition: Home or Self Care Social History Tobacco Use Types Packs/Day Years Used Date Smoking Tobacco: Former Cigarettes 2 62.6 0 08/13/1959 - 03/20/2022 Smokeless Tobacco: Never Alcohol Use Standard Drinks/Week Comments Not Currently 0 (1 standard drink = 0.6 oz pure alcohol) Stopped 12 years ago 12 years ago is it accurate up first al AUDIT-C Answer Date Recorded Q1: How often do you have a drink containing alcohol? Never 01/30/2025 Q2: How many drinks containi ng alcohol do you have on a typical day when you are drinking? Patient does not drink Q3: How often do you have si x or more drinks on one occasion? Never 01/30/2025 Abuse Screen Answer Date Recorded Feels Unsafe at Home or Work/School no 01/30/2025 Feels Threatened by Someone no 01/05 Does Anyone Try to Keep You From Having Contact with Others or Doing Things Outside Your Home? no 01/30/2025 Physical Signs of Abuse Present no 01/30/2025 Housing Stability Answer Date Recorded Current Living Arrangements home 01/05 Potentially Unsafe Housing Conditions Not on keanu e 01/30/2025 Disabilities Answer Date Recorded Difficulty Concentrating, Remembering or Making Decisions no 01/30/2025 Difficulty Managing Errands Independently no 01/30/2025 Education Answer Date Recorded Help with school or training? Not on file Preferred Language Burkinan 05/06/2022 Sex and Gender Information Value Date Recorded Sex Assigned at Not on file Legal Sex Male 8:52 AM EDT Gender Identity Not on file Sexual Orientation Not on file documented as of this encounter Last Filed Vital Signs Vital Sign Reading Time Taken Comments Blood Pressure 136/58 01/31/2025 7:50 AM EDT Pulse 62 01/31/2025 4:37 AM EDT Temperature 36.5 C (97.7 F) 01/31/2025 7:50 AM EDT Respiratory Rate 17 01/31/2025 7:50 AM EDT Oxygen Saturation 93% 01/31/2025 4:37 AM EDT Inhaled Oxygen Concentration - - Weight 104 kg (230 lb) 01/30/2025 10:51 AM EDT Height 177.8 cm (5' 10 ) 01/30/2025 10:51 AM EDT Body Mass Index 33 01/30/2025 10:51 AM EDT documented in this encounter Functional Status * Calculated C-SSRS Risk Score (Lifetime/Recent) Answer Date of Assessment Author No Risk Indicated 01/30/2025 10:52 AM EDT Musa Correa RN * [place] Suicide Severity Rating Scale (Screener/Recent Self-Report) Question Answer Date of Assessment Author 1. Wish to be (Past 1 Month) No 025 10:52 AM TOMMIET Musa Correa RN 2. Non-Specific Active Suici ana Thoughts (Past 1 Month) No 01/30/2025 10:52 AM EDT Sherine Correa RN 6. Suicidal Behavior (Lifetime) No 10:52 AM EDT Musa Correa RN documented as of this encounter Discharge Summaries * Maritza Contreras, DO - 01/31/2025 9:33 AM EDT Images from the original note were not included. [facility] Medicine Services DISCHARGE SUMMARY Patient Name: José Basurto Jr. : 1945 Date of Admission: 01/30/2025 10:43 AM Date of Discharge: 01/31/2025 Primary Care Physician: Raphael Mendoza MD Consults No orders found for last 30 day(s). Hospital Course Presenting Problem: Medication reaction Active Hospital Problems Diagnosis POA Anaphylactoid reaction [T78.2XXA] Unknown CAD (coronary artery disease) [I25.10] Unknown Systolic CHF, chronic [I50.22] Unknown A-fib [I48.91] Unknown GI bleed (due to gastric ulcer) [K92.2] Unknown CKD (chronic kidney disease) [N18.9] Unknown Iron deficiency anemia [D50.9] Unknown Resolved Hospital Problems No resolved problems to display. Hospital Course: José Basurto Jr. is a 79 y.o. male with history of heart failure, recent A-fib, CAD who was sent from outpatient [facility] to [facility] for concern for apparent anaphylactic reaction during IV iron infusion. The patient was treated with IM epi, Solu-Medrol and Benadryl prior toarrival. Patient had recently been treated in [facility] and had received dose of IV iron while admitted to the hospital. PCP had set up patient for outpatient iron infusion in [place] on 01/30. Duringthat infusion he developed chest tightness and then became somnolent, EMS was called. Patient was hypotensive, bradycardic but improved with above treatment. He is back at baseline, blood pressure doing well Probable Anaphylactoid Reaction to IV iron infusion -had 1st iv iron dose ~1 week ago during recent hospitalization at [facility] -was getting outpatient IV iron infusion at [facility] 01/30, developed acute dyspnea &abdominal crampy pain followed by hypotension, bradycardia (hr dropped to 20's) and somnolence... received IM epi, solumedrol 125mg, benadryl and EMS brought to [facility] hospital - Completed prednisone for short course, Pepcid twice daily -IV iron placed on patient allergy list CAD, recent cardiac stent ~6 weeks ago HFrEF (data deficit) Persistent Afib -6 weeks ago s/p cardiac stent ([facility]) & had afib at that time. Was discharged on asa& plavix & eliquis. Holding eliquis (recent gi bleed) -Continue asa & plavix (recent cardiac stent) -no b-juani due to previous hypotension on this medicine and bradycardia -1 week ago admitted [facility] w/ chf exacerbation. -follows w/ homemaker companion in [facility]. Called and talked to his on the phone, will need to follow-up cardiology before restarting blood pressure meds as his blood pressure has been relatively stable without meds Recent GI bleed, due to gastric ulcer (data deficit) Iron deficiency -admitted ~5 weeks ago for GI bleed, sounds like it was due to gastric ulcer s/p clip , data deficit. (This was ~1 week after an admission during which received cardiac stents and noted w/ afib, wasdischarged on asa, plavix & eliquis) -during the more recent hospitalization ~1 week ago (for chf) family states patient received his 1st dose of iv iron; was then set up for IV iron as outpatient -no further IV iron (placed on allergy list) CKD 3 -previous creatinine was 1.4 in December 2024 - Renal function overall at baseline Neuropathic pain -lyrica, duloxetine Discharge Follow Up Recommendations for outpatient labs/diagnostics: PCP in 1 week Day of Discharge HPI: No complaints, asked me to call and update his which he did Review of Systems Gen- No fevers, chills CV- No chest pain, palpitations Resp- No cough, dyspnea GI- No N/V/D, abd pain Vital Signs: Temp: [97.7 ??F (36.5 ??C)-98.3 ??F (36.8 ??C)] 97.7 ??F (36.5 ??C) Heart Rate: [59-70] 62 Resp: [17-20] 17 BP: (100-136)/(58-83) 136/58 Flow (L/min) (Oxygen Therapy): [2] 2 Physical Exam: Constitutional: No acute distress, awake, alert HENT: NCAT, mucous membranes moist Respiratory: Respiratory effort normal Gastrointestinal: Soft, nontender, nondistended Musculoskeletal: Bilateral LE edema Psychiatric: Appropriate affect, cooperative Neurologic: Oriented x 2-3, speech clear Skin: No rashes Pertinent and/or Most Recent Results LAB RESULTS: Lab 01/31/25 0450 01/30/25 1458 01/30/25 1100 WBC 10.92* -- 10.08 HEMOGLOBIN 9.8* -- 11.8* HEMATOCRIT 33.7* -- 40.7 PLATELETS 200 -- 220 NEUTROS ABS -- -- 7.34* IMMATURE GRANS (ABS) -- -- 0.43* LYMPHS ABS -- -- 1.73 MONOS ABS -- -- 0.29 EOS ABS -- -- 0.23 MCV 75.9* -- 78.1* LACTATE -- 1.6 3.6* Lab 01/31/25 0451 01/30/25 1220 01/30/25 1100 SODIUM 142 -- 140 POTASSIUM 4.7 -- 4.2 CHLORIDE 110* -- 108* CO2 22.0 -- 16.2* ANION GAP 10.0 -- 15.8* BUN 40.8* -- 38.9* CREATININE 1.47* -- 1.65* EGFR 47.9* -- 41.7* GLUCOSE 144* -- 143* CALCIUM 8.1* -- 8.2* MAGNESIUM -- 1.7 -- Lab 01/30/25 1100 TOTAL PROTEIN 6.3 ALBUMIN 3.2* GLOBULIN 3.1 ALT (SGPT) 8 AST (SGOT) 27 BILIRUBIN 0.2 ALK PHOS 133* LIPASE 104* Lab 01/30/25 1220 01/30/25 1100 PROBNP -- 5,435.0* HSTROP T 93* 83* Brief Urine Lab Results (Last result in the past 365 days) Color Clarity Blood Leuk Est Nitrite Protein CREAT Urine HCG 01/31/25 0033 Yellow Clear Negative Negative Negative 30 mg/dL (1+) Microbiology Results (last 10 days) No results found for the last 240 hours. XR Chest 1 View Result Date: 01/30/2025 XR CHEST 1 VW Date of Exam: 01/30/2025 11:03 AM EDT Indication: Chest Pain Triage Protocol. Comparison: None available. Findings: Cardiomediastinal silhouette is enlarged. Previous sternotomy. There is nonspecific generalized interstitial prominence likely chronic. No airspace disease, pneumothorax,nor pleural effusion. No acute osseous abnormality identified. Impression: 1.Enlarged cardiac silhouette. 2.Nonspecific generalized interstitial prominence likelychronic. Electronically Signed: Macho Garcia MD 01/30/2025 11:27 AM EDT Workstation ID: [id number] Results for orders placed during the hospital encounter of 05/06/22 Adult Transthoracic Echo Complete W/ Cont if Necessary Per Protocol 05/06/2022 4:22 PM Interpretation Summary Left ventricular systolic function is mildly decreased. Left ventricular ejection fraction appears to be 46 - 50%. The following left ventricular wall segments are hypokinetic: basal anterolateral, mid anterolateral, basal inferolateral, mid inferolateral and mid inferior. The following left ventricular wall segments are akinetic: basal inferior. Left ventricular wall thickness is consistent with mild concentric hypertrophy. Left ventricular diastolic function was indeterminate. Estimated right ventricular systolic pressure from tricuspid regurgitation is normal (<35 mmHg). Plan for Follow-up of Pending Labs/Results: Discharge Details Discharge Medications New Medications Instructions Start Date clopidogrel 75 MG tablet Commonly known as: PLAVIX 75 mg, Oral, Daily Start Date: February 01, 2025 Continue These Medications Instructions Start Date aspirin 81 MG EC tablet 81 mg, Oral, Daily atorvastatin 40 MG tablet Commonly known as: LIPITOR 40 mg, Oral, Nightly DULoxetine 60 MG capsule Commonly known as: CYMBALTA 60 mg, Daily furosemide 40 MG tablet Commonly known as: LASIX 40 mg, Oral, Daily pantoprazole 20 MG EC tablet Commonly known as: PROTONIX No dose, route, or frequency recorded. pregabalin 200 MG capsule Commonly known as: LYRICA 200 mg, 3 Times Daily traMADol 50 MG tablet Commonly known as: ULTRAM 50 mg, Oral, Every 8 Hours PRN Stop These Medications multivitamin tablet tablet Ozempic (0.25 or 0.5 MG/DOSE) 2 MG/1.5ML solution pen-injector Generic drug: Semaglutide(0.25 or 0.5MG/DOS) potassium chloride 10 MEQ CR tablet Commonly known as: KLOR-CON M10 potassium chloride 10 MEQ CR tablet Allergies Allergen Reactions Iron Anaphylaxis Discharge Disposition: Home or Self Care Diet: Hospital: Diet Order Procedures Diet: Regular/House; Fluid Consistency: Thin (IDDSI 0) Standing Status: Standing Number of Occurrences: 1 Diets:: Regular/House Fluid Consistency:: Thin (IDDSI 0) Diet Instructions Regular Diet Activity: Activity Instructions As tolerated.. Be careful with sharp objects and avoid trauma now that you are on plavix. Increasedrisk of bleeding while on this medicine. Restrictions or Other Recommendations: CODE STATUS: Code Status and Medical Interventions: CPR (Attempt to Resuscitate); Full Support Ordered at: 01/30/25 1404 Code Status (Patient has no pulse and is not breathing): CPR (Attempt to Resuscitate) Medical Interventions (Patient has pulse or is breathing): Full Support Future Appointments Date Time Provider Department Center 02/08/2025 2:15 PM Carie Rodriguez APRN [facility] Additional Instructions for the Follow-ups that You Need to Schedule Discharge Follow-up with PCP As directed Currently Documented PCP: Raphael Mendoza MD PCP Follow Up Details: 1 week Maritza Contreras DO 01/31/25 Time Spent on Discharge: I spent 35 minutes on this discharge activity which included: tnxi-[id number] with the patient, reviewing the data in the system, coordination of the care with the nursing staff as well as consultants, documentation, and entering orders. documented in this encounter Discharge Instructions * Discharge Instructions* Misti Valencia RN - 01/31/2025 10:07 AM EDT * Discharge Instr - Activity* Misti Valencia RN - 01/31/2025 10:04 AM EDT As tolerated.. Be careful with sharp objects and avoid trauma now that you are on plavix. Increasedrisk of bleeding while on this medicine. * Discharge Instr - Diet* Misti Valencia RN - 01/31/2025 10:05 AM EDT Regular Diet * Attachments The following attachments cannot be sent through Care Everywhere. * Clopidogrel Tablets (Burkinan) * Anaphylactic Reaction Adult Gior-py-Bhto (Burkinan) * Iron Deficiency Anemia Adult Lwti-qq-Htuj (Burkinan) documented in this encounter Medications at Time of Discharge aspirin 81 MG EC tabletIndications :Coronary artery disease involving tangirnaq coronary artery of tangirnaq heart without angina pectoris Take 1 tablet by mouth Daily. 90 tablet 1 05/20/2022 atorvastatin (LIPITOR) 40 MG tabletIndications :Coronary artery disease involving tangirnaq coronary artery of tangirnaq heart without angina pectoris Take 1 tablet by mouth Every Night. 90 tablet 1 05/20/2022 clopidogrel (PLAVIX) 75 MG tablet Take 1 tablet by mouth Daily. 30 tablet 02/01/2025 DULoxetine (CYMBALTA) 60 MG capsule Take 1 capsule by mouth Daily. 01/19/2022 furosemide (LASIX) 40 MG tabletIndications :Chronic systolic congestive heart failure,Chronic HFrEF (heart failure with reduced ejection fraction) Take 1 tablet by mouth Daily. 90 tablet 1 05/20/2022 pantoprazole (PROTONIX) 20 MG EC tablet 05/24/2022 pregabalin (LYRICA) 200 MG capsule Take 1 capsule by mouth 3 (Three) Times a Day. 04/01/2022 traMADol (ULTRAM) 50 MG tabletIndications :Cervical spondylosis with myelopathy Take 1 tablet by mouth Every 8 (Eight) Hours As Needed for Moderate Pain. 05/11/2022 documented as of this encounter H&P Notes * Chandrakant Jamison MD - 01/30/2025 2:07 PM EDT Images from the original note were not included. [facility] Medicine Services HISTORY AND PHYSICAL Patient Name: José Basurto Jr. : 1945 Primary Care Physician: Raphael Mendoza MD Date of admission: 01/30/2025 Subjective Subjective Chief Complaint: anaphylaxis HPI: José Basurto Jr. is a 79 y.o. male w/ hx cad, CHF, recent afib, gastric ulcer/gi bleed, ckd 3, copd. Sent from outpatient infusion center in [facility] to [facility] ED due to apparent anaphylactic reaction during iv iron infusion. Received IM epi, solumedrol 125, benadryl prior to arrival. Patient typically gets care in [facility]. Has remote hx of CABG. [facility], reportedly received 2 stents per family report, also noted w/ afib at that time. Was discharged on asa, plavix & eliquis. Approximately 1week later was admitted same hospital w/ gi bleed, w/ a stomach ulcer which was clipped , at which time eliquis was stopped. Does not tolerate b-juani (due to low BP & bradycardia) per family. Then ~1 week ago was admitted again [place] w/ a chf exacerbation for diuresis, and during that hospitalization family states received iv iron (his first dose per family) and subsequently was discharged. Pcp apparently set up patient for IV iron infusion in [place] which was today. Patient states that during the infusion he felt chest tightness, gi crampy pain, then remembers nothing else. Family member who was there states he became somnolent and ems reports hypotension, bradycardia into 20's, reportely received IM epi, solumedrol 125, benadryl 25mg. After arrival received LR 500cc bolus, midodrine tab. Currently BP normal, heart rate normal, mentating normally. EKG w/ afib and occasional pvc, no overt ischemic changes. No chest pain. Troponin 83,then 93. No chest pain. Creatinine 1.65. wbc 10, hgb 11.8, lactate 3.6. admitted to hospitalist service. Cxr wnl. Patient currently states I feel great . Personal History Past Medical History: Diagnosis Date A-fib 01/30/2025 Arthritis 1999 Finger started hurting Coronary artery disease CTS (carpal tunnel syndrome) 2021 Difficulty walking 2012 Cut Achilles tendon in half Gout 1989 Right big toe started hurting Heart disease Hyperlipidemia 09/21/2018 Hypertension Peripheral neuropathy 2006 Couch felt rough Polio Wears dentures UPPER Past Surgical History: Procedure Laterality Date ABDOMINAL AORTIC ANEURYSM REPAIR 2020 ACHILLES TENDON SURGERY 2014 ANTERIOR CERVICAL DISCECTOMY W/ FUSION N/A 05/07/2022 Procedure: CERVICAL DISCECTOMY ANTERIOR WITH FUSION C3-4; Surgeon: Conner Fry MD; Location: [facility]; Service: Neurosurgery; Laterality: N/A; CORONARY ARTERY BYPASS GRAFT 1999 Triple bypass EPIDURAL BLOCK 10 yrs Got Epidural???s for 10 years REPLACEMENT TOTAL KNEE Bilateral 2016 TEETH EXTRACTION Family History: family history includes Alzheimer's disease in his mother; Cancer in his brother and father. Social History: reports that he quit smoking about 2 years ago. His smoking use included cigarettes. He started smoking about 65 years ago. He has a 125.2 pack- year smoking history. He has never usedsmokeless tobacco. He reports that he does not currently use alcohol. He reports that he does not use drugs. Social History Social History Narrative Not on file Medications: Available home medication information reviewed. DULoxetine, Semaglutide(0.25 or 0.5MG/DOS), aspirin, atorvastatin, furosemide, multivitamin, pantoprazole, potassium chloride, pregabalin, and traMADol Allergies Allergen Reactions Iron Anaphylaxis Objective Objective Vital Signs: Temp: [97.4 ??F (36.3 ??C)] 97.4 ??F (36.3 ??C) Heart Rate: [58-75] 61 Resp: [20] 20 BP: (77-118)/(39-68) 117/64 Flow (L/min) (Oxygen Therapy): [3] 3 Physical Exam Constitutional:Alert, oriented x 3, nontoxic appearing, 2Lnc in place, normal respiratory effort Psych:Normal/appropriate affect HEENT:NCAT, oropharynx clear Neck: neck supple, full range of motion Neuro: Face symmetric, speech clear, 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, moves all extremities Cardiac: irr irr, regular rate; 1+BLE edema Resp: CTAB, normal effort GI: abd soft, nontender Skin: No extremity rash Musculoskeletal/extremities: no cyanosis of extremities; no significant ankle edema Result Review: I have personally reviewed the results from the time of this admission to 01/30/2025 14:07 EDT and agree with these findings: [x] Laboratory list / accordion [] Microbiology [x] Radiology [x] EKG/Telemetry [] Cardiology/Vascular [] Pathology [x] Old records [] Other: Most notable findings include: see hpi and below LAB RESULTS: Lab 01/30/25 1100 WBC 10.08 HEMOGLOBIN 11.8* HEMATOCRIT 40.7 PLATELETS 220 NEUTROS ABS 7.34* IMMATURE GRANS (ABS) 0.43* LYMPHS ABS 1.73 MONOS ABS 0.29 EOS ABS 0.23 MCV 78.1* LACTATE 3.6* Lab 01/30/25 1100 SODIUM 140 POTASSIUM 4.2 CHLORIDE 108* CO2 16.2* ANION GAP 15.8* BUN 38.9* CREATININE 1.65* EGFR 41.7* GLUCOSE 143* CALCIUM 8.2* Lab 01/30/25 1100 TOTAL PROTEIN 6.3 ALBUMIN 3.2* GLOBULIN 3.1 ALT (SGPT) 8 AST (SGOT) 27 BILIRUBIN 0.2 ALK PHOS 133* LIPASE 104* Lab 01/30/25 1220 01/30/25 1100 PROBNP -- 5,435.0* HSTROP T 93* 83* Microbiology Results (last 10 days) No results found for the last 240 hours. XR Chest 1 View Result Date: 01/30/2025 XR CHEST 1 VW Date of Exam: 01/30/2025 11:03 AM EDT Indication: Chest Pain Triage Protocol. Comparison: None available. Findings: Cardiomediastinal silhouette is enlarged. Previous sternotomy. There is nonspecific generalized interstitial prominence likely chronic. No airspace disease, pneumothorax,nor pleural effusion. No acute osseous abnormality identified. Impression: Impression: 1.Enlarged cardiac silhouette. 2.Nonspecific generalized interstitial prominence likely chronic. Electronically Signed: Macho Garcia MD 01/30/2025 11:27 AM EDT Workstation ID:[id number] Results for orders placed during the hospital encounter of 05/06/22 Adult Transthoracic Echo Complete W/ Cont if Necessary Per Protocol 05/06/2022 4:22 PM Interpretation Summary Left ventricular systolic function is mildly decreased. Left ventricular ejection fraction appears to be 46 - 50%. The following left ventricular wall segments are hypokinetic: basal anterolateral, mid anterolateral, basal inferolateral, mid inferolateral and mid inferior. The following left ventricular wall segments are akinetic: basal inferior. Left ventricular wall thickness is consistent with mild concentric hypertrophy. Left ventricular diastolic function was indeterminate. Estimated right ventricular systolic pressure from tricuspid regurgitation is normal (<35 mmHg). Assessment & Plan Assessment & Plan Anaphylaxis CAD (coronary artery disease) Systolic CHF, chronic A-fib GI bleed (due to gastric ulcer) CKD (chronic kidney disease) Iron deficiency anemia Probable Anaphylactoid Reaction to IV iron infusion -had 1st iv iron dose ~1 week ago during recent hospitalization at [facility] -was getting outpatient IV iron infusion at [facility] today, developed acute dyspnea & abdominal crampy pain followed by hypotension, bradycardia (hr dropped to 20's) and somnolence... received IM epi, solumedrol 125mg, benadryl and EMS brought to [facility] hospital -will schedule prednisone 40mg x 2 days starting tomorrow; pepcid bid x 2 days -monitor overnight, nurse to monitor for signs of biphasic reaction (in which case would give IM epi) -iv iron placed on allergy list CAD, recent cardiac stent ~6 weeks ago HFrEF (data deficit) Persistent Afib -6 weeks ago s/p cardiac stent ([facility]) & had afib at that time. Was discharged on asa& plavix & eliquis. Holding eliquis (recent gi bleed) -will continue asa & plavix (recent cardiac stent) -no b-juani due to previous hypotension on this medicine and bradycardia -1 week ago admitted [facility] w/ chf exacerbation, initiated on entresto, aldactone; continued lasix. Will hold these for now, restart as bp & renal fxn allow -follows w/ homemaker companion in [facility] Recent GI bleed, due to gastric ulcer (data deficit) Iron deficiency -admitted ~5 weeks ago for GI bleed, sounds like it was due to gastric ulcer s/p clip , data deficit. (This was ~1 week after an admission during which received cardiac stents and noted w/ afib, wasdischarged on asa, plavix & eliquis) -during the more recent hospitalization ~1 week ago (for chf) family states patient received his 1st dose of iv iron; was then set up for IV iron today as outpatient -hgb 11.8 currently, denies recent bleeding -no further IV iron (placed on allergy list) -continue protonix, pepcid CKD 3 -previous creatinine was 1.4 in December 2024 -creatinine 1.6 on presentation -given IV bolus, now 50cc/hr. Trend renal function and monitor volume status (holding lasix & aldactone currently) Neuropathic pain -lyrica, duloxetine Am labs ordered Dispo: monitor overnight, trend renal function & bp. Holding entresto/diuretics for now. Plan for ~2 days of prednisone & pepcid. Possible d/c soon (? Tomorrow) if does well VTE Prophylaxis: Mechanical VTE prophylaxis orders are signed & held. CODE STATUS: Code Status and Medical Interventions: CPR (Attempt to Resuscitate); Full Support Ordered at: 01/30/25 1404 Code Status (Patient has no pulse and is not breathing): CPR (Attempt to Resuscitate) Medical Interventions (Patient has pulse or is breathing): Full Support Expected Discharge Expected discharge date/ time has not been documented. Chandrakant Jamison MD 01/30/25 documented in this encounter Nursing Notes * Frances Chiu RN - 01/31/2025 9:39 AM EDT [facility] NURSE NAVIGATOR NOTE José Basurto Jr. : 1945 DOS: 01/31/25 Active Hospital Problems Diagnosis Anaphylactoid reaction CAD (coronary artery disease) Systolic CHF, chronic A-fib GI bleed (due to gastric ulcer) CKD (chronic kidney disease) Iron deficiency anemia Medical records have been reviewed. Patient is a good candidate for the [facility]. Education provided. Education time 15 mins. Patient to be scheduled follow up 3 days post discharge. Current Facility-Administered Medications: aspirin EC tablet 81 mg, 81 mg, Oral, Daily, Chandrakant Jamison MD, 81 mg at 01/31/25 0855 atorvastatin (LIPITOR) tablet 40 mg, 40 mg, Oral, Nightly, Chandrakant Jamison MD, 40 mg at 01/30/25 2139 sennosides-docusate (PERICOLACE) 8.6-50 MG per tablet 2 tablet, 2 tablet, Oral, BID PRN AND polyethylene glycol (MIRALAX) packet 17 g, 17 g, Oral, Daily PRN AND bisacodyl (DULCOLAX) EC tablet5 mg, 5 mg, Oral, Daily PRN AND bisacodyl (DULCOLAX) suppository 10 mg, 10 mg, Rectal, Daily PRN, Chandrakant Jamison MD clopidogrel (PLAVIX) tablet 75 mg, 75 mg, Oral, Daily, Chandrakant Jamison MD, 75 mg at 01/31/25 0855 DULoxetine (CYMBALTA) DR capsule 60 mg, 60 mg, Oral, Daily, Chandrakant Jamison MD, 60 mg at 01/31/25 0855 famotidine (PEPCID) tablet 20 mg, 20 mg, Oral, BID AC, Chandrakant Jamison MD, 20 mg at 01/31/25 0856 [Held by provider] furosemide (LASIX) tablet 40 mg, 40 mg, Oral, Daily, Chandrakant Jamison MD ipratropium-albuterol (DUO-NEB) nebulizer solution 3 mL, 3 mL, Nebulization, Q4H PRN, Chandrakant Jamison MD Magnesium Low Dose Replacement - Follow Nurse / BPA Driven Protocol, , Not Applicable, PRN, Chandrakant Jamison MD pantoprazole (PROTONIX) EC tablet 40 mg, 40 mg, Oral, Q AM, Chandrakant Jamison MD, 40 mg at 01/31/25 0534 predniSONE (DELTASONE) tablet 40 mg, 40 mg, Oral, Daily With Breakfast, Chandrakant Jamison MD, 40mg at 01/31/25 0856 pregabalin (LYRICA) capsule 200 mg, 200 mg, Oral, BID, Chandrakant Jamison MD, 200 mg at 01/31/25 0855 [Held by provider] sacubitril-valsartan (ENTRESTO) 24-26 MG tablet 1 tablet, 1 tablet, Oral, Q12H, Chandrakant Jamison MD sodium chloride 0.9 % flush 10 mL, 10 mL, Intravenous, Q12H, Chandrakant Jamison MD, 10 mL at 01/31/25 0856 sodium chloride 0.9 % flush 10 mL, 10 mL, Intravenous, PRN, Chandrakant Jamison MD sodium chloride 0.9 % infusion 40 mL, 40 mL, Intravenous, PRN, Chandrakant Jamison MD [Held by provider] spironolactone (ALDACTONE) tablet 25 mg, 25 mg, Oral, Daily, Chandrakant Jamison MD Lab Results Component Value Date PROBNP 5,435.0 (H) 01/30/2025 Echo Results: Results for orders placed during the hospital encounter of 05/06/22 Adult Transthoracic Echo Complete W/ Cont if Necessary Per Protocol 05/06/2022 4:22 PM Interpretation Summary Left ventricular systolic function is mildly decreased. Left ventricular ejection fraction appears to be 46 - 50%. The following left ventricular wall segments are hypokinetic: basal anterolateral, mid anterolateral, basal inferolateral, mid inferolateral and mid inferior. The following left ventricular wall segments are akinetic: basal inferior. Left ventricular wall thickness is consistent with mild concentric hypertrophy. Left ventricular diastolic function was indeterminate. Estimated right ventricular systolic pressure from tricuspid regurgitation is normal (<35 mmHg). Heart Failure Education [] Risk factors [] Medications management and adherence [] Low sodium diet [] Fluid restriction: [] Exercise/activity/cardiac rehab [] Smoking cessation [x] Signs/symptoms [] Daily weight management [] Weight management [x] Importance of keeping follow up office visits [x] Role of [facility] [] Other [] Hyperkalemia [] Other: [] EF teaching Unable to provide heart failure education today: [] Patient/family refused [] Not available [] Not able to participate [] Other: * Syed Coates RN - 01/31/2025 5:37 AM EDT Problem: Adult Inpatient Plan of Care Goal: Plan of Care Review Outcome: Progressing Goal: Patient-Specific Goal (Individualized) Outcome: Progressing Goal: Absence of Hospital-Acquired Illness or Injury Outcome: Progressing Intervention: Identify and Manage Fall Risk Recent Flowsheet Documentation Taken 01/31/2025 0400 by Syed Coates RN Safety Promotion/Fall Prevention: toileting scheduled safety round/check completed room organization consistent nonskid shoes/slippers when out of bed fall prevention program maintained clutter free environment maintained assistive device/personal items within reach Taken 01/31/2025 0200 by Syed Coates RN Safety Promotion/Fall Prevention: safety round/check completed room organization consistent nonskid shoes/slippers when out of bed fall prevention program maintained clutter free environment maintained assistive device/personal items within reach Taken 01/31/2025 0000 by Syed Coates RN Safety Promotion/Fall Prevention: toileting scheduled safety round/check completed room organization consistent nonskid shoes/slippers when out of bed fall prevention program maintained clutter free environment maintained assistive device/personal items within reach Taken 01/30/20252199 by Syed Coates RN Safety Promotion/Fall Prevention: safety round/check completed room organization consistent nonskid shoes/slippers when out of bed fall prevention program maintained clutter free environment maintained assistive device/personal items within reach Taken 01/30/20251999 by Syed Coates RN Safety Promotion/Fall Prevention: activity supervised clutter free environment maintained fall prevention program maintained lighting adjusted nonskid shoes/slippers when out of bed room organization consistent safety round/check completed Intervention: Prevent Skin Injury Recent Flowsheet Documentation Taken 01/31/2025 0400 by Syed Coates RN Body Position: position changed independently Taken 01/31/2025 0200 by Syed Coates RN Body Position: position changed independently Taken 01/31/2025 0000 by Syed Coates RN Body Position: position changed independently Taken 01/30/20252199 by Syed Coates RN Body Position: position changed independently Taken 01/30/20251999 by Syed Coates RN Body Position: position changed independently Skin Protection: incontinence pads utilized Intervention: Prevent Infection Recent Flowsheet Documentation Taken 01/31/2025 0400 by Syed Coates RN Infection Prevention: cohorting utilized environmental surveillance performed equipment surfaces disinfected hand hygiene promoted rest/sleep promoted single patient room provided Taken 01/31/2025 020 by Syed Coates RN Infection Prevention: single patient room provided rest/sleep promoted hand hygiene promoted equipment surfaces disinfected cohorting utilized environmental surveillance performed Taken 01/31/2025 0000 by Syed Coates RN Infection Prevention: cohorting utilized environmental surveillance performed equipment surfaces disinfected hand hygiene promoted rest/sleep promoted single patient room provided Taken 01/30/20252199 by Syed Coates RN Infection Prevention: single patient room provided rest/sleep promoted hand hygiene promoted equipment surfaces disinfected cohorting utilized environmental surveillance performed Taken 01/30/20251999 by Syed Coates RN Infection Prevention: cohorting utilized environmental surveillance performed equipment surfaces disinfected hand hygiene promoted rest/sleep promoted single patient room provided Goal: Optimal Comfort and Wellbeing Outcome: Progressing Intervention: Provide Person-Centered Care Recent Flowsheet Documentation Taken 01/30/20251999 by Syed Coates RN Trust Relationship/Rapport: care explained choices provided emotional support provided empathic listening provided questions answered questions encouraged reassurance provided thoughts/feelings acknowledged Goal: Readiness for Transition of Care Outcome: Progressing Problem: Fall Injury Risk Goal: Absence of Fall and Fall-Related Injury Outcome: Progressing Intervention: Identify and Manage Contributors Recent Flowsheet Documentation Taken 01/31/2025 0400 by Syed Coates RN Medication Review/Management: medications reviewed Taken 01/31/2025 020 by Syed Coates RN Medication Review/Management: medications reviewed Taken 01/31/2025 by Syed Coates RN Medication Review/Management: medications reviewed Taken 01/30/20252199 by Syed Coates RN Medication Review/Management: medications reviewed Taken 01/30/20251999 by Syed Coates RN Medication Review/Management: medications reviewed Intervention: Promote Injury-Free Environment Recent Flowsheet Documentation Taken 01/31/2025399 by Syed Coates RN Safety Promotion/Fall Prevention: toileting scheduled safety round/check completed room organization consistent nonskid shoes/slippers when out of bed fall prevention program maintained clutter free environment maintained assistive device/personal items within reach Taken 01/31/2025 0200 by Syed Coates RN Safety Promotion/Fall Prevention: safety round/check completed room organization consistent nonskid shoes/slippers when out of bed fall prevention program maintained clutter free environment maintained assistive device/personal items within reach Taken 01/31/2025 0000 by Syed Coates RN Safety Promotion/Fall Prevention: toileting scheduled safety round/check completed room organization consistent nonskid shoes/slippers when out of bed fall prevention program maintained clutter free environment maintained assistive device/personal items within reach Taken 01/30/2025 2200 by Syed Coates RN Safety Promotion/Fall Prevention: safety round/check completed room organization consistent nonskid shoes/slippers when out of bed fall prevention program maintained clutter free environment maintained assistive device/personal items within reach Taken 01/30/2025 2000 by Syed Coates RN Safety Promotion/Fall Prevention: activity supervised clutter free environment maintained fall prevention program maintained lighting adjusted nonskid shoes/slippers when out of bed room organization consistent safety round/check completed Problem: Skin Injury Risk Increased Goal: Skin Health and Integrity Outcome: Progressing Intervention: Optimize Skin Protection Recent Flowsheet Documentation Taken 01/31/2025 0400 by Syed Coates RN Activity Management: activity minimized Pressure Reduction Techniques: frequent weight shift encouraged Head of Bed (HOB) Positioning: HOB elevated Pressure Reduction Devices: pressure-redistributing mattress utilized Taken 01/31/2025 0200 by Syed Coates RN Activity Management: activity minimized Pressure Reduction Techniques: frequent weight shift encouraged Head of Bed (HOB) Positioning: HOB elevated Pressure Reduction Devices: pressure-redistributing mattress utilized Taken 01/31/2025 0000 by Syed Coates RN Activity Management: activity minimized Pressure Reduction Techniques: frequent weight shift encouraged Head of Bed (HOB) Positioning: HOB elevated Pressure Reduction Devices: pressure-redistributing mattress utilized Taken 01/30/2025 2200 by Syed Coates RN Activity Management: activity minimized Pressure Reduction Techniques: frequent weight shift encouraged Head of Bed (HOB) Positioning: HOB elevated Pressure Reduction Devices: pressure-redistributing mattress utilized Taken 01/30/20251999 by Syed Coates RN Activity Management: activity minimized Pressure Reduction Techniques: frequent weight shift encouraged pressure points protected Head of Bed (HOB) Positioning: HOB elevated Pressure Reduction Devices: pressure-redistributing mattress utilized foam padding utilized Skin Protection: incontinence pads utilized Problem: Comorbidity Management Goal: Maintenance of Heart Failure Symptom Control Outcome: Progressing Intervention: Maintain Heart Failure Management Recent Flowsheet Documentation Taken 01/31/2025 0400 by Syed Coates RN Medication Review/Management: medications reviewed Taken 01/31/2025 0200 by Syed Coates RN Medication Review/Management: medications reviewed Taken 01/31/2025 0000 by Syed Coates RN Medication Review/Management: medications reviewed Taken 01/30/2025 2200 by Syed Coates RN Medication Review/Management: medications reviewed Taken 01/30/20251999 by Syed Coates RN Medication Review/Management: medications reviewed Goal Outcome Evaluation: documented in this encounter ED Notes * Pedrito Hu MD - 01/30/2025 10:43 AM EDTAssociated Order(s): Critical Care Subjective History of Present Illness Patient is an 79-year-old male presenting to the emergency department via EMS from the infusion center in [facility] secondary to a episode of unresponsiveness. The patient had just receivedan infusion of iron when he lost consciousness. The facility reported agonal respirations. They didperform [id number] ventilation. They also gave him a combination of epinephrine, Benadryl, and Solu-Medrol. Patient regained consciousness. EMS did report an irregular heart rate with known history of atrial fibrillation. There is a note accompanying the patient which I reviewed and the patientwas being evaluated for chronic anemia. Their note demonstrates a hemoglobin of 9.1 and hematocrit of 30.9. They also note findings consistent with chronic kidney disease. Patient reports he is feeling overall well other than some generalized abdominal discomfort and gassy . This is likely relatedto the [id number] ventilation that was performed. The patient denies any chest pain or shortness of breath at this time. Chart review does demonstrate the patient has a history of congestive heart failure., Coronary disease, ischemic cardiomyopathy, hyperlipidemia, hypertension, and chronic kidney disease. History provided by: Patient, EMS personnel and medical records Review of Systems Past Medical History: Diagnosis Date A-fib 01/30/2025 Arthritis 1999 Finger started hurting Coronary artery disease CTS (carpal tunnel syndrome) 2021 Difficulty walking 2012 Cut Achilles tendon in half Gout 1989 Right big toe started hurting Heart disease Hyperlipidemia 09/21/2018 Hypertension Peripheral neuropathy 2006 Couch felt rough Polio Wears dentures UPPER Allergies Allergen Reactions Iron Anaphylaxis Past Surgical History: Procedure Laterality Date ABDOMINAL AORTIC ANEURYSM REPAIR 2020 ACHILLES TENDON SURGERY 2014 ANTERIOR CERVICAL DISCECTOMY W/ FUSION N/A 05/07/2022 Procedure: CERVICAL DISCECTOMY ANTERIOR WITH FUSION C3-4; Surgeon: Conner Fry MD; Location: [facility]; Service: Neurosurgery; Laterality: N/A; CORONARY ARTERY BYPASS GRAFT 1999 Triple bypass EPIDURAL BLOCK 10 yrs Got Epidural???s for 10 years REPLACEMENT TOTAL KNEE Bilateral 2016 TEETH EXTRACTION Family History Problem Relation Age of Onset Alzheimer's disease Mother Cancer Father lung Cancer Brother stomach Social History Socioeconomic History Marital status: Tobacco Use Smoking status: Former Current packs/day: 0.00 Average packs/day: 2.0 packs/day for 62.6 years (125.2 ttl pk-yrs) Types: Cigarettes Start date: 08/13/1959 Quit date: 03/20/2022 Years since quittin.8 Smokeless tobacco: Never Vaping Use Vaping status: Never Used Substance and Sexual Activity Alcohol use: Not Currently Comment: Stopped 12 years ago 12 years ago is it accurate up first al Drug use: Never Sexual activity: Defer Partners: Female control/protection: None, Partner of same sex Objective Physical Exam Vitals and nursing note reviewed. Constitutional: General: He is not in acute distress. Appearance: Normal appearance. He is obese. He is ill-appearing. He is not toxic-appearing. Cardiovascular: Rate and Rhythm: Normal rate. Rhythm irregular. Pulmonary: Effort: Pulmonary effort is normal. No respiratory distress. Breath sounds: Normal breath sounds. Abdominal: General: Abdomen is protuberant. Musculoskeletal: Right lower leg: No edema. Left lower leg: No edema. Neurological: Mental Status: He is alert and oriented to person, place, and time. Psychiatric: Mood and Affect: Mood normal. Behavior: Behavior normal. 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 and renal failure Critical care was time spent personally by me on the following activities: Discussions with consultants, evaluation of patient's response to treatment, examination of patient, obtaining history from patient or surrogate, ordering and performing treatments and interventions, ordering and review of laboratory studies, ordering and review of radiographic studies, pulse oximetry, re- evaluation of patient's condition and review of old charts Care discussed with: admitting provider ED Course ED Course as of 01/30/25 183TueJan 30, 2025 1106 BP(!): 77/47 Significant hypotension noted on initial vital signs. Fluids ordered [RS] 1110 Patient with continued hypotension which could be related to the iron transfusion. With the side effect profile of the IV infusions, we will give a dose of midodrine to improve blood pressure. We want to be very judicious with the patient's fluid secondary to his prior cardiac history. [RS] 1152 Creatinine(!): 1.65 Acute kidney injury superimposed on chronic kidney disease when compared to most recent value [RS] 1152 HS Troponin T(!!): 83 Elevated troponin noted. BNP is elevated as well. No prior comparisons available [RS] 1301 HS Troponin T(!!): 93 Troponin is trending up [RS] 1301 Patient with an episode of unresponsiveness associated with an iron infusion. Blood pressure is significantly improved with time, fluids, and medications. However, with the patient's abnormal EKG and lab findings, we will plan admission for further evaluation and management. Hospitalist messaged for admission. [RS] ED Course User Index [RS] Pedrito Hu MD Medical Decision Making Problems Addressed: Abnormal electrocardiogram (ECG) (EKG): complicated acute illness or injury Acute kidney injury superimposed on chronic kidney disease: complicated acute illness or injury Chronic anemia: complicated acute illness or injury Episode of unresponsiveness: complicated acute illness or injury Former smoker: complicated acute illness or injury History of CAD (coronary artery disease): complicated acute illness or injury Transient hypotension: complicated acute illness or injury Amount and/or Complexity of Data Reviewed Independent Historian: EMS External Data Reviewed: labs and notes. Labs: ordered. Decision-making details documented in ED Course. Radiology: ordered. ECG/medicine tests: ordered. Discussion of management or test interpretation with external provider(s): Hospitalist Risk OTC drugs. Prescription drug management. Decision regarding hospitalization. Critical Care Total time providing critical care: 45 minutes Final diagnoses: Episode of unresponsiveness Acute kidney injury superimposed on chronic kidney disease History of CAD (coronary artery disease) Abnormal electrocardiogram (ECG) (EKG) Transient hypotension Former smoker Chronic anemia ED Disposition ED Disposition ED Disposition Decision to Admit Condition -- Comment Level of Care: Telemetry [5] Diagnosis: Anaphylaxis [411745] Is patient appropriate for Inpatient Observation Unit?: Yes [1] No follow-up provider specified. Medication List No changes were made to your prescriptions during this visit. Pedrito Hu MD 01/30/25 1833 documented in this encounter Miscellaneous Notes * Case Management/Social Work - Jami Frias RN - 01/31/2025 10:05 AM EDT Continued Stay Note [facility] Patient Name: José Basurto Jr. Today's Date: 01/31/2025 Admit Date: 01/30/2025 Plan: Home at DC Discharge Plan Row Name 01/31/25 1004 Plan Plan Home at DC Patient/Family in Agreement with Plan yes Plan Comments The pt has been DCed. I spoke with the pt and his spouse. The pt uses a walker. They deny any DC needs at this time. Has transport home. Final Discharge Disposition Code 01 - home or self-care Row Name 01/31/25 0838 Plan Final Discharge Disposition Code 01 - home or self-care Discharge Codes No documentation. Expected Discharge Date and Time Expected Discharge Date Expected Discharge Time Jan 31, 2025 Jami Frias RN documented in this encounter Plan of Treatment Not on file documented as of this encounter Procedures Procedure Name Priority Date/Time Associated Diagnosis Comments BASIC METABOLIC PANEL Urgent 01/31/2025 4:51 AM EDT CBC (NO DIFF) Urgent 01/31/2025 4:50 AM EDT URINALYSIS, MICROSCOPIC ONLY Routine 01/31/2025 12:33 AM EDT URINALYSIS W/ CULTURE IF INDICATED STAT 01/31/2025 12:33 AM EDT SCANNED - TELEMETRY 01/30/2025 6 :57 PM EDT LACTIC ACID, REFLEX STAT 01/30/2025 2 :58 PM EDT ECG 12-LEAD STAT 01/30/2025 12:20 PM EDT HIGH SENSITIVITIY TROPONIN T 1HR STAT 01/30/2025 12:20 PM EDT MAGNESIUM STAT 01/30/2025 12:20 PM EDT XR CHEST 1 VW STAT 01/30/2025 11:[address] TOP STAT 01/30/2025 11:00 AM EDT GOLD TOP - SST STAT 01/30/2025 11:00 AM EDT DK GREEN TOP STAT 01/30/2025 11:00 AM EDT SCAN SLIDE STAT 01/30/2025 11:00 AM EDT CBC WITH AUTO DIFFERENTIAL STAT 01/30/2025 11:00 AM EDT LAVENDER TOP STAT 01/30/2025 11:00 AM EDT LIGHT BLUE TOP STAT 01/30/2025 11:00 AM EDT RAINBOW DRAW STAT 01/30/2025 11:00 AM EDT TROPONIN STAT 01/30/2025 11:00 AM EDT CBC AND DIFFERENTIAL STAT 01/30/2025 11:00 AM EDT B-TYPE NATRIURETIC PEPTIDE STAT 01/30/2025 11:00 AM EDT LIPASE STAT 01/30/2025 11:00 AM EDT LACTIC ACID, PLASMA STAT 01/30/2025 1 1:00 AM EDT COMPREHENSIVE METABOLIC PANEL STAT 01/30/2025 11:00 AM EDT ECG 12-LEAD STAT 01/30/2025 10:57 AM EDT SCANNED - TELEMETRY 01/30/2025 1 0:55 AM EDT [place] [facility] ILL/INJURED PATIENT INIT 30-74 MIN Routine 01/30/2025 10:43 AM EDT documented in this encounter Results * (ABNORMAL) Basic Metabolic Panel (01/31/2025 4:51 AM EDT) Glucose 144(H) 65 - 99 mg/dL 01/31/2025 5:46 AM EDT [facility] BUN 40.8(H) 8.0 - 23.0 mg/dL 01/31/2025 5:46 AM EDT [facility] Creatinine 1.47(H) 0.76 - 1.27 mg/dL 01/31/2025 5:46 AM EDT [facility] Sodium 142 136 - 145 mmol/L 01/31/2025 5:46 AM EDT [facility] Potassium 4.7 3.5 - 5.2 mmol/L 01/31/2025 5:46 AM EDT [facility] Chloride 110(H) 98 - 107 mmol/L 01/31/2025 5:46 AM EDT [facility] CO2 22.0 22.0 - 29.0 mmol/L 01/31/2025 5:46 AM EDT [facility] Calcium 8.1(L) 8.6 - 10.5 mg/dL 01/31/2025 5:46 AM EDT [facility] BUN/Creatinine Ratio 27.8(H) 7.0 - 25.0 01/31/2025 5:46 AM EDT [facility] Anion Gap 10.0 5.0 - 15.0 mmol/L 01/31/2025 5:46 AM EDT [facility] eGFR 47.9(L) >60.0 mL/min/1.7 3 01/31/2025 5:46 AM EDT [facility] Blood Venipuncture / Unknown 01/31/2025 4:51 AM EDT 01/31/2025 5:11 AM EDT [facility] - 01/31/2025 5:46 AM EDT GFR Categories in Chronic Kidney Disease (CKD) GFR Category GFR (mL/min/1.73) Interpretation G1 90 or greater Normal or high (1) G2 60-89 Mild decrease (1) G3a 45-59 Mild to moderate decrease G3b 30-44 Moderate to severe decrease G4 15-29 Severe decrease G5 14 or less Kidney failure (1)In the absence of evidence of kidney disease, neither GFR category G1 or G2 fulfill the criteria for CKD. eGFR calculation 2020 CKD-EPI creatinine equation, which does not include race as a factor Chandrakant Jamison MD LAB BLOOD ORDERABLES Final Result [facility]
[address] [place] [address], * (ABNORMAL) CBC (No Diff) (01/31/2025 4:50 AM EDT) WBC 10.92(H) 3.40 - 10.80 10*3/mm3 01/31/2025 5:47 AM EDT [facility] RBC 4.44 4.14 - 5.80 10*6/mm3 01/31/2025 5:47 AM EDT [facility] Hemoglobin 9.8(L) 13.0 - 17.7 g/dL 01/31/2025 5:47 AM EDT [facility] Hematocrit 33.7(L) 37.5 - 51.0 % 01/31/2025 5:47 AM EDT [facility] MCV 75.9(L) 79.0 - 97.0 fL 01/31/2025 5:47 AM EDT [facility] MCH 22.1(L) 26.6 - 33.0 pg 01/31/2025 5:47 AM EDT [facility] MCHC 29.1(L) 31.5 - 35.7 g/dL 01/31/2025 5:47 AM EDT [facility] RDW 24.1(H) 12.3 - 15.4 % 01/31/2025 5:47 AM EDT [facility] RDW-SD 64.9(H) 37.0 - 54.0 fl 01/31/2025 5:47 AM EDT [facility] MPV 11.1 6.0 - 12.0 fL 01/31/2025 5:47 AM EDT [facility] Platelets 200 140 - 450 10*3/mm3 01/31/2025 5:47 AM T [facility] Blood Venipuncture / Unknown 01/31/2025 4:50 AM EDT 01/31/2025 5:16 AM EDT Chandrakant Jamison MD LAB BLOOD ORDERABLES Final Result [facility]
[address] [place] [address], * Urinalysis, Microscopic Only - Urine, Clean Catch (01/31/2025 12:33 AM EDT) RBC, UA 0-2 None Seen, 0-2 /HPF 01/31/2025 1:19 AM EDT [facility] WBC, UA 0-2 None Seen, 0-2 /HPF 01/31/2025 1:19 AM EDT [facility] Comment:Urine culture not in dicated. Bacteria, UA None Seen None Seen /HPF 01/31/2025 1:19 AM EDT [facility] Squamous Epithelial Cells, UA 0-2 None Seen, 0-2 /HPF 01/31/2025 1:19 AM EDT [facility] Hyaline Casts, UA 0-2 None Seen /LPF 01/31/2025 1:19 AM EDT [facility] Methodology Automated Microscopy 01/31/2025 1:19 AM EDT [facility] Urine Urine specimen obtained by clean catch procedure / Unknown Collection / Unknown 01/31/2025 12:33 AM EDT 01/31/2025 12:47 AM EDT us Chandrakant Jamison MD URINE ORDERABLES Final Res ult [facility]
[address] [place] [address], * (ABNORMAL) Urinalysis With Culture If Indicated - Urine, Clean Catch (01/31/2025 12:33 AM EDT) Color, UA Yellow Yellow, Straw 01/31/2025 1:15 AM EDT [facility] Appearance, UA Clear Clear 01/31/2025 1:15 AM EDT [facility] pH, UA 5.5 5.0 - 8.0 01/31/2025 1:15 AM EDT [facility] Specific [place], UA 1.016 1.005 - 1.030 01/31/2025 1:15 AM EDT [facility] Glucose, UA Negative Negative 01/31/2025 1:15 AM EDT [facility] Ketones, UA Negative Negative 01/31/2025 1:15 AM EDT [facility] Bilirubin, UA Negative Negative 01/31/2025 1:15 AM EDT [facility] Blood, UA Negative Negative 01/31/2025 1:15 AM EDT [facility] Protein, UA 30 mg/dL (1+)(A) Negative 01/31/2025 1:15 AM EDT [facility] Leuk Esterase, UA Negative Negative 01/31/2025 1:15 AM EDT [facility] Nitrite, UA Negative Negative 01/31/2025 1:15 AM EDT [facility] Urobilinogen, UA 0.2 E.U./dL 0.2 - 1.0 E.U./dL 01/31/2025 1:15 AM EDT [facility] Urine Urine specimen obtained by clean catch procedure / Unknown Collection / Unknown 01/31/2025 12:33 AM EDT 01/31/2025 12:47 AM EDT Narrative [facility] - 01/31/2025 1:15 AM EDT In absence of clinical symptoms, the presence of pyuria, bacteria, and/or nitrites on the urinalysis result does not correlate with infection. Chandrakant Jamison MD URINE ORDERABLES Final Res ult [facility]
[address] [place] [address], * Telemetry Scan (01/30/2025 6:57 PM EDT) [facility] ECG ORDERABLES Final Result * STAT Lactic Acid, Reflex (01/30/2025 2:58 PM EDT) Lactate 1.6 0.5 - 2.0 mmol/L 01/30/2025 3:37 PM EDT [facility] Comment:Falsely depressed re sults may occur on samples drawn from patients receiving N-Acetylcysteine (NAC) or Metamizole. Blood Venipuncture / Unknown 01/30/2025 2:58 PM EDT 01/30/2025 3:03 PM EDT us Chandrakant Jamison MD LAB BLOOD ORDERABLES Final Result [facility]
[address] [place] [address], * ECG 12 Lead QT Measurement (01/30/2025 12:20 PM EDT) QT Interval 456 ms ECG QTC Interval 462 ms ECG 01/30/2025 12:2 0 PM EDT 01/31/2025 11:51 AM EDT Narrative ECG - 01/31/2025 11:51 AM EDT Test Reason : QT Measurement Blood Pressure : */* mmHG Vent. Rate : 62 BPM Atrial Rate : 73 BPM P-R Int : * ms QRS Dur : 134 ms QT Int : 456 ms P-R-T Axes : * -50 101 degrees QTcB Int : 462 ms Atrial fibrillation with premature ventricular or aberrantly conducted complexes Left axis deviation Nonspecific intraventricular block Abnormal ECG When compared with ECG of 30-Jan-2025 10:57, (Unconfirmed) Previous ECG has undetermined rhythm, needs review Confirmed by PEDRITO HU MD ([id number]) on 01/31/2025 11:51:11 AM Referred By: EDMD Confirmed By: PEDRITO HU MD Procedure Note Pedrito Hu MD - 01/31/2025 Test Reason : QT Measurement Blood Pressure : */* mmHG Vent. Rate : 62 BPM Atrial Rate : 73 BPM P-R Int : * ms QRS Dur : 134 ms QT Int : 456 ms P-R-T Axes : * -50 101 degrees QTcB Int : 462 ms Atrial fibrillation with premature ventricular or aberrantly conducted complexes Left axis deviation Nonspecific intraventricular block Abnormal ECG When compared with ECG of 30-Jan-2025 10:57, (Unconfirmed) Previous ECG has undetermined rhythm, needs review Confirmed by PEDRITO HU MD ([id number]) on 01/31/2025 11:51:11 AM Referred By: EDMD Confirmed By: PEDRITO HU MD Pedrito Hu MD ECG ORDERABLES Final Res ult ECG * Magnesium (01/30/2025 12:20 PM EDT) Pathologist [facility] Magnesium 1.7 1.6 - 2.4 mg/dL 01/30/2025 2:17 PM EDT [facility] Blood Venipuncture / Unknown 01/30/2025 12:20 PM EDT 01/30/2025 12:25 PM EDT Chandrakant Jamison MD LAB BLOOD ORDERABLES Final Result [facility]
[address] [place] [address], * (ABNORMAL) High Sensitivity Troponin T 1Hr (01/30/2025 12:20 PM EDT) Pathologist [facility] HS Troponin T 93(HH) <22 ng/L 01/30/2025 12:52 PM EDT [facility] Troponin T Numeric Delta 10 ng/L 01/30/2025 12:52 PM EDT [facility] Troponin T % Delta 12 Abnormal if >/= 20% 01/30/2025 12:52 PM EDT [facility] Blood Venipuncture / Unknown 01/30/2025 12:20 PM EDT 01/30/2025 12:25 PM EDT Narrative [facility] - 01/30/2025 12:52 PM EDT High Sensitive Troponin T Reference Range: <14.0 ng/L- Negative Female for AMI <22.0 ng/L- Negative Male for AMI >=14 - Abnormal Female indicating possible myocardial injury. >=22 - Abnormal Male indicating possible myocardial injury. Clinicians would have to utilize clinical acumen, EKG, Troponin, and serial changes to determine if it is an Acute Myocardial Infarction or myocardial injury due to an underlying chronic condition. Pedrito Hu MD LAB BLOOD ORDERABLES Nicole l Result [facility]
[address] [id number], * XR Chest 1 View (01/30/2025 11:22 AM EDT) Anatomical Region Laterality Modality Body N/A Radiographic Lynette ging 01/30/2025 11:2 6 AM EDT Impressions 01/30/2025 11:27 AM EDT Impression: 1.Enlarged cardiac silhouette. 2.Nonspecific generalized interstitial prominence likely chronic. Electronically Signed: Macho Garcia MD 01/30/2025 11:27 AM EDT Workstation ID: [id number] Narrative 01/30/2025 11:27 AM EDT XR CHEST 1 VW Date of Exam: 01/30/2025 11:03 AM EDT Indication: Chest Pain Triage Protocol. Comparison: None available. Findings: Cardiomediastinal silhouette is enlarged. Previous sternotomy. There is nonspecific generalized interstitial prominence likely chronic. No airspace disease, pneumothorax, nor pleural effusion. No acute osseous abnormality identified. Procedure Note Macho Garcia MD - 01/30/2025 XR CHEST 1 VW Date of Exam: 01/30/2025 11:03 AM EDT Indication: Chest Pain Triage Protocol. Comparison: None available. Findings: Cardiomediastinal silhouette is enlarged. Previous sternotomy. There isnonspecific generalized interstitial prominence likely chronic. Noairspace disease, pneumothorax, nor pleural effusion. No acute osseousabnormality identified. IMPRESSION: Impression: 1.Enlarged cardiac silhouette. 2.Nonspecific generalized interstitial prominence likely chronic. Electronically Signed: Macho Garcia MD 01/30/2025 11:27 AM EDT Workstation ID: [id number] Pedrito Hu MD IMG DIAGNOSTIC IMAGING OR DERABLES Final Result * (ABNORMAL) Lactic Acid, Plasma (01/30/2025 11:00 AM EDT) Lactate 3.6(HH) 0.5 - 2.0 mmol/L 01/30/2025 1:43 PM EDT [facility] Comment:Falsely depressed re sults may occur on samples drawn from patients receiving N-Acetylcysteine (NAC) or Metamizole. Blood Venipuncture / Unknown 01/30/2025 11:00 AM EDT 01/30/2025 11:05 AM EDT Chandrakant Jamison MD LAB BLOOD ORDERABLES Final Result Performing Organization Address City/[facility]/ZIP Co de Phone Number [facility]
[address] [place] [address], * Scan Slide (01/30/2025 11:00 AM EDT) Anisocytosis Mod/2+ None Seen 01/30/2025 11:35 AM EDT [facility] Ovalocytes Slight/1+ None Seen 01/30/2025 11:35 AM EDT [facility] WBC Morphology Normal Normal 01/30/2025 11:35 AM EDT [facility] Platelet Morphology Normal Normal 01/30/2025 11:35 AM EDT [facility] Blood Venipuncture / Unknown 01/30/2025 11:00 AM EDT 01/30/2025 11:05 AM EDT Pedrito Hu MD LAB BLOOD ORDERABLES Nicole l Result [facility]
[address] [place] [address], * (ABNORMAL) CBC Auto Differential (01/30/2025 11:00 AM EDT) WBC 10.08 3.40 - 10.80 10*3/mm3 01/30/2025 11:35 AM [facility] RBC 5.21 4.14 - 5.80 10*6/mm3 01/30/2025 11:35 AM [facility] Hemoglobin 11.8(L) 13.0 - 17.7 g/dL 01/30/2025 11:35 AM [facility] Hematocrit 40.7 37.5 - 51.0 % 01/30/2025 11:35 AM [facility] MCV 78.1(L) 79.0 - 97.0 fL 01/30/2025 11:35 AM [facility] MCH 22.6(L) 26.6 - 33.0 pg 01/30/2025 11:35 AM [facility] MCHC 29.0(L) 31.5 - 35.7 g/dL 01/30/2025 11:35 AM [facility] RDW 24.6(H) 12.3 - 15.4 % 01/30/2025 11:35 AM [facility] RDW-SD 68.2(H) 37.0 - 54.0 fl 01/30/2025 11:35 AM [facility] MPV 10.7 6.0 - 12.0 fL 01/30/2025 11:35 AM [facility] Platelets 220 140 - 450 10*3/mm3 01/30/2025 11:35 AM [facility] Neutrophil % 72.7 42.7 - 76.0 % 01/30/2025 11:35 AM [facility] Lymphocyte % 17.2(L) 19.6 - 45.3 % 01/30/2025 11:35 AM [facility] Monocyte % 2.9(L) 5.0 - 12.0 % 01/30/2025 11:35 AM [facility] Eosinophil % 2.3 0.3 - 6.2 % 01/30/2025 11:35 AM [facility] Basophil % 0.6 0.0 - 1.5 % 01/30/2025 11:35 AM EDT [facility] Immature Grans % 4.3(H) 0.0 - 0.5 % 01/30/2025 11:35 AM EDT [facility] Neutrophils, Absolute 7.34(H) 1.70 - 7.00 10*3/mm3 01/30/2025 11:35 AM EDT [facility] Lymphocytes, Absolute 1.73 0.70 - 3.10 10*3/mm3 01/30/2025 11:35 AM EDT [facility] Monocytes, Absolute 0.29 0.10 - 0.90 10*3/mm3 01/30/2025 11:35 AM EDT [facility] Eosinophils, Absolute 0.23 0.00 - 0.40 10*3/mm3 01/30/2025 11:35 AM EDT [facility] Basophils, Absolute 0.06 0.00 - 0.20 10*3/mm3 01/30/2025 11:35 AM EDT [facility] Immature Grans, Absolute 0.43(H) 0.00 - 0.05 10*3/mm3 01/30/2025 11:35 AM EDT [facility] nRBC 0.7(H) 0.0 - 0.2 /100 WBC 01/30/2025 11:35 AM EDT [facility] Blood Venipuncture / Unknown 01/30/2025 11:00 AM EDT 01/30/2025 11:05 AM EDT Narrative [facility] - 01/30/2025 11:35 AM EDT Appended report. These results have been appended to a previously verified report. us Pedrito Hu MD LAB BLOOD ORDERABLES Nicole crowe Result [facility]
[address] [place] [address], * Light Blue Top (01/30/2025 11:00 AM EDT) Extra Tube Hold for add-ons. 01/30/2025 11:15 AM EDT [facility] Comment:Auto resulted Blood Venipuncture / Unknown 01/30/2025 11:00 AM EDT 01/30/2025 11:05 AM EDT Pedrito Hu MD LAB BLOOD ORDER ONLY Nicole l Result Performing Organization Address City/[facility]/ZIP Co de Phone Number [facility]
[address] [place] [address], * Lane Top (01/30/2025 11:00 AM EDT) Extra Tube Hold for add-ons. 01/30/2025 11:15 AM EDT [facility] Comment:Auto resulted. Blood Venipuncture / Unknown 01/30/2025 11:00 AM EDT 01/30/2025 11:05 AM EDT Pedrito Hu MD LAB BLOOD ORDER ONLY Nicole l Result Performing Organization Address City/[facility]/ZIP Co de Phone Number [facility]
[address] [place] [address], * Gold Top - SST (01/30/2025 11:00 AM EDT) Extra Tube Hold for add-ons. 01/30/2025 11:15 AM EDT [facility] Comment:Auto resulted. Blood Venipuncture / Unknown 01/30/2025 11:00 AM EDT 01/30/2025 11:05 AM EDT Pedrito Hu MD LAB BLOOD ORDER ONLY Nicole l Result Performing Organization Address City/[facility]/ZIP Co de Phone Number [facility]
[address] [place] [address], * Lavender Top (01/30/2025 11:00 AM EDT) Extra Tube hold for add-on 01/30/2025 11:15 AM EDT [facility] Comment:Auto resulted Blood Venipuncture / Unknown 01/30/2025 11:00 AM EDT 01/30/2025 11:05 AM EDT Pedrito Hu MD LAB BLOOD ORDER ONLY Nicole l Result Performing Organization Address City/[facility]/ZIP Co de Phone Number [facility]
[address] [place] [address], * Green Top (Gel) (01/30/2025 11:00 AM EDT) Extra Tube Hold for add-ons. 01/30/2025 11:15 AM EDT [facility] Comment:Auto resulted. Blood Venipuncture / Unknown 01/30/2025 11:00 AM EDT 01/30/2025 11:05 AM EDT Pedrito Hu MD LAB BLOOD ORDER ONLY Nicole l Result Performing Organization Address [facility] Co de Phone Number [facility]
[address] [place] [address], * (ABNORMAL) BNP (01/30/2025 11:00 AM EDT) proBNP 5,435.0(H) 0.0 - 1,800.0 pg/mL 01/30/2025 11:38 AM EDT [facility] Blood Venipuncture / Unknown 01/30/2025 11:00 AM EDT 01/30/2025 11:05 AM EDT Narrative [facility] - 01/30/2025 11:38 AM EDT This assay is used as an aid in the diagnosis of individuals suspected of having heart failure. It can be used as an aid in the diagnosis of acute decompensated heart failure (ADHF) in patients presenting with signs and symptoms of ADHF to the emergency department (ED). In addition, NT-proBNP of <300 pg/mL indicates ADHF is not likely. Age Range Result Interpretation NT-proBNP Concentration (pg/mL: <[address] 300-450 Negative <300 50-75 Positive >[address] 300-900 Negative <300 >75 Positive >[address] 300-1800 Negative <300 Pedrito Hu MD LAB BLOOD ORDERABLES Nicole l Result Performing Organization Address City/[facility]/ZIP Co de Phone Number [facility]
[address] [place] [address], * (ABNORMAL) Lipase (01/30/2025 11:00 AM EDT) Lipase 104(H) 13 - 60 U/L 01/30/2025 11:38 AM EDT [facility] Blood Venipuncture / Unknown 01/30/2025 11:00 AM EDT 01/30/2025 11:05 AM EDT Pedrito Hu MD LAB BLOOD ORDERABLES Nicole l Result Performing Organization Address [facility] de Phone Number [facility]
[address] [place] [address], * (ABNORMAL) Comprehensive Metabolic Panel (01/30/2025 11:00 AM EDT) Glucose 143(H) 65 - 99 mg/dL 01/30/2025 11:39 AM EDT [facility] BUN 38.9(H) 8.0 - 23.0 mg/dL 01/30/2025 11:39 AM EDT [facility] Creatinine 1.65(H) 0.76 - 1.27 mg/dL 01/30/2025 11:39 AM EDT [facility] Sodium 140 136 - 145 mmol/L 01/30/2025 11:39 AM EDT [facility] Potassium 4.2 3.5 - 5.2 mmol/L 01/30/2025 11:39 AM [facility] Comment:Specimen hemolyzed. Result may be falsely elevated. Chloride 108(H) 98 - 107 mmol/L 01/30/2025 11:39 AM [facility] CO2 16.2(L) 22.0 - 29.0 mmol/L 01/30/2025 11:39 AM [facility] Calcium 8.2(L) 8.6 - 10.5 mg/dL 01/30/2025 11:39 AM [facility] Total Protein 6.3 6.0 - 8.5 g/dL 01/30/2025 11:39 AM [facility] Albumin 3.2(L) 3.5 - 5.2 g/dL 01/30/2025 11:39 AM [facility] ALT (SGPT) 8 1 - 41 U/L 01/30/2025 11:39 AM [facility] AST (SGOT) 27 1 - 40 U/L 01/30/2025 11:39 AM [facility] Comment:Specimen hemolyzed. Result may be falsely elevated. Alkaline Phosphatase 133(H) 39 - 117 U/L 01/30/2025 11:39 AM [facility] Total Bilirubin 0.2 0.0 - 1.2 mg/dL 01/30/2025 11:39 AM [facility] Globulin 3.1 gm/dL 01/30/2025 11:39 AM [facility] Comment:Calculated Result A/G Ratio 1.0 g/dL 01/30/2025 11:39 AM [facility] BUN/Creatinine Ratio 23.6 7.0 - 25.0 01/30/2025 11:39 AM [facility] Anion Gap 15.8(H) 5.0 - 15.0 mmol/L 01/30/2025 11:39 AM [facility] eGFR 41.7(L) >60.0 mL/min/1.7 3 01/30/2025 11:39 AM EDT [facility] Blood Venipuncture / Unknown 01/30/2025 11:00 AM EDT 01/30/2025 11:05 AM EDT [facility] - 01/30/2025 11:39 AM EDT GFR Categories in Chronic Kidney Disease (CKD) GFR Category GFR (mL/min/1.73) Interpretation G1 90 or greater Normal or high (1) G2 60-89 Mild decrease (1) G3a 45-59 Mild to moderate decrease G3b 30-44 Moderate to severe decrease G4 15-29 Severe decrease G5 14 or less Kidney failure (1)In the absence of evidence of kidney disease, neither GFR category G1 or G2 fulfill the criteria for CKD. eGFR calculation 2020 CKD-EPI creatinine equation, which does not include race as a factor Pedrito Hu MD LAB BLOOD ORDERABLES Nicole l Result [facility]
[address] [place] [address], * (ABNORMAL) High Sensitivity Troponin T (01/30/2025 11:00 AM EDT) HS Troponin T 83(HH) <22 ng/L 01/30/2025 11:39 AM EDT [facility] Blood Venipuncture / Unknown 01/30/2025 11:00 AM EDT 01/30/2025 11:05 AM EDT Narrative [facility] - 01/30/2025 11:39 AM EDT High Sensitive Troponin T Reference Range: <14.0 ng/L- Negative Female for AMI <22.0 ng/L- Negative Male for AMI >=14 - Abnormal Female indicating possible myocardial injury. >=22 - Abnormal Male indicating possible myocardial injury. Clinicians would have to utilize clinical acumen, EKG, Troponin, and serial changes to determine if it is an Acute Myocardial Infarction or myocardial injury due to an underlying chronic condition. us Pedrito Hu MD LAB BLOOD ORDERABLES Nicole l Result [facility]
[address] [place] [address], * ECG 12 Lead QT Measurement (01/30/2025 10:57 AM EDT) QT Interval 440 ms ECG QTC Interval 464 ms ECG 01/30/2025 10:5 7 AM EDT 01/31/2025 11:50 AM EDT Narrative ECG - 01/31/2025 11:50 AM EDT Test Reason : QT Measurement Blood Pressure : */* mmHG Vent. Rate : 67 BPM Atrial Rate : 56 BPM P-R Int : * ms QRS Dur : 140 ms QT Int : 440 ms P-R-T Axes : * -47 103 degrees QTcB Int : 464 ms Undetermined rhythm Left axis deviation Nonspecific intraventricular block Abnormal ECG When compared with ECG of 05-May-2022 14:49, Current undetermined rhythm precludes rhythm comparison, needs review QRS duration has increased Criteria for Anterior infarct are no longer present Confirmed by PEDRITO HU MD ([id number]) on 01/31/2025 11:50:34 AM Referred By: Confirmed By: PEDRITO HU MD Procedure Note Pedrito Hu MD - 01/31/2025 Test Reason : QT Measurement Blood Pressure : */* mmHG Vent. Rate : 67 BPM Atrial Rate : 56 BPM P-R Int : * ms QRS Dur : 140 ms QT Int : 440 ms P-R-T Axes : * -47 103 degrees QTcB Int : 464 ms Undetermined rhythm Left axis deviation Nonspecific intraventricular block Abnormal ECG When compared with ECG of 05-May-2022 14:49, Current undetermined rhythm precludes rhythm comparison, needs review QRS duration has increased Criteria for Anterior infarct are no longer present Confirmed by PEDRITO HU MD ([id number]) on 01/31/2025 11:50:34 AM Referred By: Confirmed By: PEDRITO HU MD Pedrito Hu MD ECG ORDERABLES Final Res ult [facility] ECG * Telemetry Scan (01/30/2025 10:55 AM EDT) [facility] Onbase ECG ORDERABLES Final Result * [place] [facility] ILL/INJURED PATIENT INIT 30-74 MIN (01/30/2025 10:43 AM EDT) Narrative Pedrito Hu MD - 01/30/2025 10:43 AM EDT Pedrito Hu MD 01/30/2025 6:33 PM 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 and renal failure Critical care was time spent personally by me on the following activities: Discussions with consultants, evaluation of patient's response to treatment, examination of patient, obtaining history from patient or surrogate, ordering and performing treatments and interventions, ordering and review of laboratory studies, ordering and review of radiographic studies, pulse oximetry, re-evaluation of patient's condition and review of old charts Care discussed with: admitting provider Result [facility] Pedrito Hu MD PROCEDURE/MINOR SURGICAL ORDERABLES Final Result documented in this encounter Visit Diagnoses Diagnosis Anaphylactoid reaction- Primary Other anaphylactic shock Episode of unresponsiveness Acute kidney injury superimposed on chronic kidney disease History of CAD (coronary artery disease) Abnormal electrocardiogram (ECG) (EKG) Transient hypotension Former smoker Personal history of tobacco use, presenting hazards to health Chronic anemia Unspecified anemia CAD (coronary artery disease) Coronary atherosclerosis of unspecified type of vessel, tangirnaq or graft Systolic CHF, chronic A-fib Atrial fibrillation GI bleed (due to gastric ulcer) Unspecified, hemorrhage of gastrointestinal tract CKD (chronic kidney disease) Chronic kidney disease, unspecified Iron deficiency anemia Unspecified iron deficiency anemia documented in this encounter Admitting Diagnoses Diagnosis Anaphylaxis Other anaphylactic shock documented in this encounter Administered Medications Inactive Administered Medications - up to 3 most recent administrations Medication Order MAR Action Action Date Dose Rate Site aspirin chewable tablet 324 mg 324 mg, Oral, Once, On Tue01/30/25 at 1107, For 1 dose, Herbal/drug interaction: Avoid use with ginkgo biloba. Based on patient request - if ordered for moderate or severe pain, provider allows for administration of a medication prescribed for a lower pain scale. Do not exceed 4 grams of aspirin in a 24 hr period. If given for pain, use the following pain scale: Mild Pain = Pain Score of 1-3, CPOT 1-2 Moderate Pain = Pain Score of 4-6, CPOT 3-4 Severe Pain = Pain Score of 7-10, CPOT 5-8, Indications: Chest pain protocolIndications:Chest pain protocol Given 01/30/2025 11:38 AM EDT 243 mg aspirin EC tablet 81 mg 81 mg, Oral, Daily, First dose on Tue01/31/25 at 0900, Do not crush or chew the capsules or tablets. The drug may not work as designed if the capsule or tablet is crushed or chewed. Swallow whole. Do not exceed 4 grams of aspirin in a 24 hr period. If given for pain, use the following pain scale: Mild Pain = Pain Score of 1-3, CPOT 1-2 Moderate Pain = Pain Score of 4-6, CPOT 3-4 Severe Pain = Pain Score of 7-10, CPOT 5-8 Given 01/31/2025 8:55 AM EDT 81 mg atorvastatin (LIPITOR) tablet 40 mg 40 mg, Oral, Nightly, First dose on Tue01/30/25 at 2100, Avoid grapefruit juice. Given 01/30/2025 9:39 PM EDT 40 mg bisacodyl (DULCOLAX) EC tablet 5 mg 5 mg, Oral, Daily PRN, Constipation, Use if polyethylene glycol is ineffective, Starting on Tue01/30/25 at 1701, Use if no bowel movement after 12 hours. Swallow whole. Do not crush, split, or chew tablet. bisacodyl (DULCOLAX) suppository 10 mg 10 mg, Rectal, Daily PRN, Constipation, Use if bisacodyl oral is ineffective, Starting on Tue01/30/25 at 1701, Use if no bowel movement after 12 hours. Hold for diarrhea clopidogrel (PLAVIX) tablet 75 mg 75 mg, Oral, Daily, First dose on Tue01/30/25 at 1500 Given 01/31/2025 8:55 AM EDT 75 mg Given 01/30/2025 4:48 PM EDT 75 mg DULoxetine (CYMBALTA) DR capsule 60 mg 60 mg, Oral, Daily, First dose on Tue01/30/25 at 1800, Do not crush or chew the capsules or tablets. The drug may not work as designed if the capsule or tablet is crushed or chewed. Swallow whole. Caution: Look alike/sound alike drug alert. Capsule may be opened and sprinkled on applesauce or apple juice. Do not crush or chew capsule. Given 01/31/2025 8:55 AM EDT 60 mg Given 01/30/2025 5:34 PM EDT 60 mg famotidine (PEPCID) tablet 20 mg 20 mg, Oral, 2 Times Daily Before Meals, First dose on Tue01/30/25 at 1730 Given 01/31/2025 8:56 AM EDT 20 mg Given 01/30/2025 4:48 PM EDT 20 mg ipratropium-albuterol (DUO-NEB) nebulizer solution 3 mL 3 mL, Nebulization, Every 4 Hours PRN, Wheezing, Shortness of Air, Starting on Tue01/30/25 at 1419 lactated ringers bolus 1,000 mL 1,000 mL, Intravenous, at 1,000 mL/hr, Administer over 1 Hours, Once, On Tue01/30/25 at 1336, For 1 dose New Bag 01/30/2025 1:57 PM EDT 1,000 mL 1000 mL/hr lactated ringers bolus 500 mL 500 mL, Intravenous, at 1,000 mL/hr, Administer over 0.5 Hours, Once, On Tue01/30/25 at 1120, For 1 dose New Bag 01/30/2025 11:06 AM EDT 500 mL 1000 mL/hr midodrine (PROAMATINE) tablet 5 mg 5 mg, Oral, Once, On Tue01/30/25 at 1126, For 1 dose Given 01/30/2025 11:37 AM EDT 5 mg pantoprazole (PROTONIX) EC tablet 40 mg 40 mg, Oral, Every Climatology Professor, First dose on Tue01/30/25 at 1430, Swallow whole; do not crush, split, or chew. Given 01/31/2025 5:34 AM EDT 40 mg Given 01/30/2025 4:48 PM EDT 40 mg polyethylene glycol (MIRALAX) packet 17 g 17 g, Oral, Daily PRN, Constipation, Use if senna-docusate is ineffective, Starting on Tue01/30/25 at 1701, Use if no bowel movement after 12 hours. Mix in 6-8 ounces of water. Use 4-8 ounces of water, tea, or juice for each 17 gram dose. predniSONE (DELTASONE) tablet 40 mg 40 mg, Oral, Daily With Breakfast, First dose on Tue01/31/25 at 0800, Take with food. Given 01/31/2025 8:56 AM EDT 40 m g pregabalin (LYRICA) capsule 200 mg 200 mg, Oral, 2 Times Daily, First dose on Tue01/30/25 at 2100, (SANTANA) Given 01/31/2025 8:55 AM EDT 200 mg Given 01/30/2025 9:39 PM EDT 200 mg sacubitril-valsartan (ENTRESTO) 24-26 MG tablet 1 tablet 1 tablet, Oral, Every 12 Hours Scheduled, First dose on Tue01/30/25 at 1422, Is this new therapy for the patient? No, On hold since Tue01/30/2025 at 1406 until manually unheld sennosides-docusate (PERICOLACE) 8.6-50 MG per tablet 2 tablet 2 tablet, Oral, 2 Times Daily PRN, Constipation, Starting on Tue01/30/25 at 1701, Start bowel management regimen if patient has not had a bowel movement after 12 hours. sodium chloride 0.9 % flush 10 mL 10 mL, Intravenous, Every 12 Hours Scheduled, First dose on Tue01/30/25 at 2100 Given 01/31/2025 8:56 AM EDT 10 mL Given 01/30/2025 9:39 PM EDT 10 mL sodium chloride 0.9 % infusion 50 mL/hr, Intravenous, Continuous, Starting on Tue01/30/25 at 1430, For 10 hours New Bag 01/30/2025 4:49 PM EDT 50 mL/hr 50 mL/hr spironolactone (ALDACTONE) tablet 25 mg 25 mg, Oral, Daily, First dose on Tue01/30/25 at 1422, Hold for SBP less than 100, DBP less than 60. Group 1 (Yellow) Hazardous Drug - See Handling Guide, On hold since Tue01/30/2025 at 1406 until manually unheld documented in this encounter Active and Recently Administered Medications Times are shown in EDT. Scheduled Medication Order 01/29/2025 01/30/2025 01/31/2025 aspirin chewable tablet 324 mg (COMPLETED) 324 mg, Oral, Once, On Tue01/30/25 at 1107, For 1 dose, Herbal/drug interaction: Avoid use with ginkgo biloba. Based on patient request - if ordered for moderate or severe pain, provider allows for administration of a medication prescribed for a lower pain scale. Do not exceed 4 grams of aspirin in a 24 hr period. If given for pain, use the following pain scale: Mild Pain = Pain Score of 1-3, CPOT 1-2 Moderate Pain = Pain Score of 4-6, CPOT 3-4 Severe Pain = Pain Score of 7-10, CPOT 5-8, Indications: Chest pain protocol 1138 (Given - Provider: Musa Correa RN) aspirin EC tablet 81 mg 81 mg, Oral, Daily, First dose on Tue01/31/25 at 0900, Do not crush or chew the capsules or tablets. The drug may not work as designed if the capsule or tablet is crushed or chewed. Swallow whole. Do not exceed 4 grams of aspirin in a 24 hr period. If given for pain, use the following pain scale: Mild Pain = Pain Score of 1-3, CPOT 1-2 Moderate Pain = Pain Score of 4-6, CPOT 3-4 Severe Pain = Pain Score of 7-10, CPOT 5-8 0855 (Given - Provid er: Annette Henning RN) atorvastatin (LIPITOR) tablet 40 mg 40 mg, Oral, Nightly, First dose on Tue01/30/25 at 2100, Avoid grapefruit juice. 213 (Given - Provider: Syed Coates RN) clopidogrel (PLAVIX) tablet 75 mg 75 mg, Oral, Daily, First dose on Tue01/30/25 at 1500 1648 (Given - Provider: Zahra Farah RN - Comment: new admit) 0855 (Given - Provider: Annette Henning RN) DULoxetine (CYMBALTA) DR capsule 60 mg 60 mg, Oral, Daily, First dose on Tue01/30/25 at 1800, Do not crush or chew the capsules or tablets. The drug may not work as designed if the capsule or tablet is crushed or chewed. Swallow whole. Caution: Look alike/sound alike drug alert. Capsule may be opened and sprinkled on applesauce or apple juice. Do not crush or chew capsule. 1734 (Given - Provider: Zahra Farah RN) 0855 (Given - Provider: Annette Henning RN) famotidine (PEPCID) tablet 20 mg 20 mg, Oral, 2 Times Daily Before Meals, First dose on Tue01/30/25 at 1730 1648 (Given - Provider: Zahra Farah RN) 0856 (Given - Provider: Annette Henning RN) furosemide (LASIX) tablet 40 mg 40 mg, Oral, Daily, First dose on Tue01/30/25 at 1800, On hold since Tue01/30/2025 at 1701 until manually unheld 170 (Held by provider - Provider: Chandrakant Jamison MD - Reason: Other (Comment Required))1800 (Dose Auto Held) 0900 (Dose Auto Held)1308 (Unheld by provider - Provider: Automatic Discharge Provider) lactated ringers bolus 1,000 mL (COMPLETED) 1,000 mL, Intravenous, at 1,000 mL/hr, Administer over 1 Hours, Once, On Tue01/30/25 at 1336, For 1 dose 1357 (New Bag - Provider: Musa Correa RN)1459 (Stopped - Provider: Musa Correa RN) lactated ringers bolus 500 mL (COMPLETED) 500 mL, Intravenous, at 1,000 mL/hr, Administer over 0.5 Hours, Once, On Tue01/30/25 at 1120, For 1 dose 1106 (New Bag - Provider: Musa Correa RN)1137 (Stopped - Provider: Musa Correa RN) midodrine (PROAMATINE) tablet 5 mg (COMPLETED) 5 mg, Oral, Once, On Tue01/30/25 at 1126, For 1 dose 1137 (Given - Provider: Musa Correa RN) pantoprazole (PROTONIX) EC tablet 40 mg 40 mg, Oral, Every Climatology Professor, First dose on Tue01/30/25 at 1430, Swallow whole; do not crush, split, or chew. 1648 (Given - Provider: Zahra Farah RN - Comment: new admit) 0534 (Given - Provider: Syed Coates, RN) predniSONE (DELTASONE) tablet 40 mg 40 mg, Oral, Daily With Breakfast, First dose on Tue01/31/25 at 0800, Take with food. 0856 (Given - Provid er: Annette Henning RN) pregabalin (LYRICA) capsule 200 mg 200 mg, Oral, 2 Times Daily, First dose on Tue01/30/25 at 2100, (SANTANA) 2138 (Given - Provider: Syed Coates RN) 0855 (Given - Provider: Annette Henning RN) sacubitril-valsartan (ENTRESTO) 24-26 MG tablet 1 tablet 1 tablet, Oral, Every 12 Hours Scheduled, First dose on Tue01/30/25 at 1422, Is this new therapy for the patient? No, On hold since Tue01/30/2025 at 1406 until manually unheld 1406 (Held by provider - Provider: Chandrakant Jamison MD - Reason: Other (Comment Required))1422 (Dose Auto Held - Provider: Chandrakant Jamison MD)2100 (Dose Auto Held - Provider: Chandrakant Jamison MD) 0900 (Dose Auto Held - Provider: Chandrakant Jamison MD)1308 (Unheld by provider - Provider: Automatic Discharge Provider) sodium chloride 0.9 % flush 10 mL 10 mL, Intravenous, Every 12 Hours Scheduled, First dose on Tue01/30/25 at 2100 2138 (Given - Provider: Syed Coates RN) 0856 (Given - Provider: Annette Henning RN) spironolactone (ALDACTONE) tablet 25 mg 25 mg, Oral, Daily, First dose on Tue01/30/25 at 1422, Hold for SBP less than 100, DBP less than 60. Group 1 (Yellow) Hazardous Drug - See Handling Guide, On hold since Tue01/30/2025 at 1406 until manually unheld 1406 (Held by provider - Provider: Chandrakant Jamison MD - Reason: Other (Comment Required))1422 (Dose Auto Held - Provider: Chandrakant Jamison MD) 0900 (Dose Auto Held - Provider: Chandrakant Jamison MD)1308 (Unheld by provider - Provider: Automatic Discharge Provider) Continuous Medication Order 01/29/2025 01/30/2025 01/31/2025 sodium chloride 0.9 % infusion (CANCELED) 50 mL/hr, Intravenous, Continuous, Starting on Tue01/30/25 at 1430, For 10 hours 1649 (New Bag - Provider: Minh Farah RN)2139 (Stopped - Provider: Syed Coates RN - Comment: [Order ends at this time. Document the following action when infusion is complete: Stopped]) PRN Medication Order 01/29/2025 01/30/2025 01/31/2025 bisacodyl (DULCOLAX) EC tablet 5 mg(Linked Group 1) 5 mg, Oral, Daily PRN, Constipation, Use if polyethylene glycol is ineffective, Starting on Tue01/30/25 at 1701, Use if no bowel movement after 12 hours. Swallow whole. Do not crush, split, or chew tablet. bisacodyl (DULCOLAX) suppository 10 mg(Linked Group 1) 10 mg, Rectal, Daily PRN, Constipation, Use if bisacodyl oral is ineffective, Starting on Tue01/30/25 at 1701, Use if no bowel movement after 12 hours. Hold for diarrhea ipratropium-albuterol (DUO-NEB) nebulizer solution 3 mL 3 mL, Nebulization, Every 4 Hours PRN, Wheezing, Shortness of Air, Starting on Tue01/30/25 at 1419 Magnesium Low Dose Replacement - Follow Nurse / BPA Driven Protocol Open Order & Select [facility] Electrolyte Replacement Protocol Algorithm to View Details polyethylene glycol (MIRALAX) packet 17 g(Linked Group 1) 17 g, Oral, Daily PRN, Constipation, Use if senna-docusate is ineffective, Starting on Tue01/30/25 at 1701, Use if no bowel movement after 12 hours. Mix in 6-8 ounces of water. Use 4-8 ounces of water, tea, or juice for each 17 gram dose. sennosides-docusate (PERICOLACE) 8.6-50 MG per tablet 2 tablet(Linked Group 1) 2 tablet, Oral, 2 Times Daily PRN, Constipation, Starting on Tue01/30/25 at 1701, Start bowel management regimen if patient has not had a bowel movement after 12 hours. sodium chloride 0.9 % flush 10 mL 10 mL, Intravenous, As Needed, Line Care, Starting on Tue01/30/25 at 1701 sodium chloride 0.9 % infusion 40 mL 40 mL, Intravenous, at 100 mL/hr, As Needed, Line Care, Starting on Tue01/30/25 at 1701, Following administration of an IV intermittent medication, flush line with 40mL NS at 100mL/hr. Linked Groups Order Group 1: sennosides-docusate (PERICOLACE) 8.6-50 MG per tablet 2 tabletJump to med 2 tablet, Oral, 2 Times Daily PRN, Constipation, Starting on Tue01/30/25 at 1701, Start bowel management regimen if patient has not had a bowel movement after 12 hours. And polyethylene glycol (MIRALAX) packet 17 gJump to med 17 g, Oral, Daily PRN, Constipation, Use if senna-docusate is ineffective, Starting on Tue01/30/25 at 1701, Use if no bowel movement after 12 hours. Mix in 6-8 ounces of water. Use 4-8 ounces of water, tea, or juice for each 17 gram dose. And bisacodyl (DULCOLAX) EC tablet 5 mgJump to med 5 mg, Oral, Daily PRN, Constipation, Use if polyethylene glycol is ineffective, Starting on Tue01/30/25 at 1701, Use if no bowel movement after 12 hours. Swallow whole. Do not crush, split, or chew tablet. And bisacodyl (DULCOLAX) suppository 10 mgJump to med 10 mg, Rectal, Daily PRN, Constipation, Use if bisacodyl oral is ineffective, Starting on Tue01/30/25 at 1701, Use if no bowel movement after 12 hours. 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
--- OUTSIDE RECORDS SUMMARY | 2025-02-13 09:25 | XMS_ITS | Clinical Summary ---
Author Organization [facility] Address [address] [place] [address] Care Team Providers Care Camera Technician Name Role Phone Peyton Alan DO Primary Care Provider [phone] Allergies No known active allergies Active Problems [...] (AWV) 11/14/2022 10/15/2021 COVID-19 Vaccine ( season) 2025 05/04/2021, 08/28/2020, 07/31/2020 Influenza Vaccine (#1) 2025 [...] age to complete this topic Insurance MEDICARE [facility] OTHER GENERIC COMMERCIAL Care Teams Camera Technician Relationship Specialty Start Date End Date Peyton Alan DO [address] [place], [place] [id number] PCP - General 05/13/20
--- OUTSIDE RECORDS SUMMARY | 2025-02-13 09:25 | XMS_ITS | Encounter Summary ---
Author Organization [facility] Address [address] [place] [address] Care Team Providers Care Pet Walker Name Role Phone Raphael Mendoza MD Primary Care Provider Encounter Details Date Type Department Care Team (Latest Contact Info) Description 01/30/2025 Travel Social History Tobacco Use Types Packs/Day Years [...] or training? Not on file Preferred Language Albanian 05/06/2022 Sex and Gender Information Value Date Recorded Sex Assigned at Not on file Legal Sex Male 8:52 AM EDT Gender Identity Not on file Sexual Orientation Not on file documented as of this encounter Functional Status * Calculated C-SSRS Risk Score (Lifetime/Recent) Answer Date of Assessment Author No Risk Indicated 01/30/2025 10:52 AM EDT Musa Correa RN * [place] Suicide Severity Rating Scale (Screener/Recent Self-Report) Question Answer Date of Assessment Author 1. Wish to be (Past 1 Month) No 025 10:52 AM EDT Musa Correa RN 2. Non-Specific Active Suici ana Thoughts (Past 1 Month) No 01/30/2025 10:52 AM EDT Sherine Correa RN 6. Suicidal Behavior (Lifetime) No 5 10:52 AM EDT Musa Correa RN documented as of this encounter Plan of Treatment Not on file documented as of this encounter Visit Diagnoses Not on filedocumented in this encounter Additional Health Concerns Infection Onset Date Last Indicated Resolved Time MRSA 05/06/2022 05/06/2022 documented as of this encounter Care Teams Pet Walker Relationship Specialty Start Date End Date Raphael Mendoza MD [address] [place] [address] PCP - General Family Medicine 05/05/22 documented as of this encounter
--- OUTSIDE RECORDS SUMMARY | 2025-02-13 09:25 | XMS_ITS | Encounter Summary ---
[facility] Address [address] [place] [address] Care Team Providers Care Architectural Modeler Name Role Phone Raphael Mendoza MD Primary Care Provider [phone] Encounter Details Date Type Department Care Team (Late st Contact Info) Description 01/31/2025 Readmission Management [facility] [address] [place] [phone] Camille Valente RN Social History Tobacco Use Types Packs/Day Years [...] or training? Not on file Preferred Language Stateless 05/06/2022 Sex and Gender Information Value Date Recorded Sex Assigned at Not on file Legal Sex Male 8:52 AM EDT Gender Identity Not on file Sexual Orientation Not on file documented as of this encounter Miscellaneous Notes * Outreach Note - Camille Valente RN - 01/31/2025 7:34 PM EDT Prep Survey Flowsheet Row Responses [facility] patient discharged from? [place] Is LACE score less than 10 ? 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 Other Prep survey completed? Yes Camille Starr - Registered Nurse documented in this encounter Plan of Treatment Not on file documented as of this encounter Visit Diagnoses Not on filedocumented in this encounter Additional Health Concerns Infection Onset Date Last Indicated Resolved Time MRSA 05/06/2022 05/06/2022 documented as of this encounter Care Teams Architectural Modeler Relationship Specialty Start Date End Date Raphael Mendoza MD [address] [address] PCP - General Family Medicine 05/05/22 documented as of this encounter
--- OUTSIDE RECORDS SUMMARY | 2025-02-13 09:26 | XMS_ITS | Clinical Summary ---
Author Organization [facility] Address [address] [place] [address] Care Team Providers Care Square Cutter Name Role Phone Raphael Mendoza MD Primary Care Provider [phone] Allergies Active Allergy Reactions Criticality Noted Date Comments Iron Anaphylaxis High 01/30/2025 Medications DULoxetine (CYMBALTA) 60 MG capsule Take 1 capsule by mouth Daily. 2 Active traMADol (ULTRAM) 50 MG tabletIndicatio ns:Cervical spondylosis with myelopathy Take 1 tablet by mouth Every 8 (Eight) Hours As Needed for Moderate Pain. 2 Active Additional Information Patient taking differently:50 mg OralEvery 6 Hours PRN, Moderate Pain, Reported on 05/20/2022 furosemide (LASIX) 40 MG tabletIndicatio ns:Chronic systolic congestive heart failure,Chronic HFrEF (heart failure with reduced ejection fraction) Take 1 tablet by mouth Daily. 90 tablet 1 2 Active Additional Information Patient taking differently:40 mg Oral2 Times Daily, Reported on 01/30/2025 aspirin 81 MG EC tabletIndicatio ns:Coronary artery disease involving chenega coronary artery of chenega heart without angina pectoris Take 1 tablet by mouth Daily. 90 tablet 1 2 Active atorvastatin (LIPITOR) 40 MG tabletIndicatio ns:Coronary artery disease involving chenega coronary artery of chenega heart without angina pectoris Take 1 tablet by mouth Every Night. 90 tablet 1 2 Active pregabalin (LYRICA) 200 MG capsule Take 1 capsule by mouth 3 (Three) Times a Day. 2 Active pantoprazole (PROTONIX) 20 MG EC tablet 2 Active clopidogrel (PLAVIX) 75 MG tablet Take 1 tablet by mouth Daily. 30 tablet 5 Active multivitamin (THERAGRAN) tablet tablet Take 1 tablet by mouth Daily. 025 Discontin ued(Stop Taking at Discharge ) Ozempic, 0.25 or 0.5 MG/DOSE, 2 MG/1.5ML solution pen-injector NOT CURRENTLY TAKING 2 025 Discontin ued(Stop Taking at Discharge ) potassium chloride (K-DUR,KLOR-CON ) 10 MEQ CR tabletIndicatio ns:Chronic systolic congestive heart failure,Chronic HFrEF (heart failure with reduced ejection fraction) Take 1 tablet by mouth Daily. 90 tablet 1 2 025 Discontin ued(Stop Taking at Discharge ) potassium chloride 10 MEQ CR tablet 2 025 Discontin ued(Stop Taking at Discharge ) Active Problems Problem Noted Date Diagnosed Date CAD (coronary artery disease) 01/30/2025 Systolic CHF, chronic 01/30/2025 A-fib 01/30/2025 GI bleed (due to gastric ulcer) 01/30/2025 CKD (chronic kidney disease) 01/30/2025 Iron deficiency anemia 01/30/2025 Anaphylactoid reaction 01/30/2025 Anterior knee pain 05/24/2022 Edema of lower [...] Hyperlipidemia 09/21/2018 Essential hypertension 09/21/2018 Overweight 09/21/2018 Encounters Date Type Department Care Team Description 01/31/2025 Readmission Management [facility] [address] [place] [id number] Camille Valente RN 01/30/2025 10:43 AM EDT - 01/31/2025 10:55 AM EDT Hospital Encounter [address] [place] [id number] Pedrito Roberts MD West, Christopher R, MD Gilbert, Meghan Carroll, DO Episode of unresponsiveness (Primary Dx); Acute kidney injury superimposed on chronic kidney disease; History of CAD (coronary artery disease); Abnormal electrocardiogram (ECG) (EKG); Transient hypotension; Former smoker; Chronic anemia Discharge Disposition: Home or Self Care 01/30/2025 Travel from Last 3 Months Family History Medical History Relation Name Comments [...] or training? Not on file Preferred Language Syriac 05/06/2022 Sex and Gender Information Value Date [...] Mass Index 33 01/30/2025 10:51 AM EDT Plan of Treatment Health Maintenance Due Date Last Done Comments RSV Vaccine - Adults (1 - 1- dose 75+ series) 2019 ZOSTER VACCINE (2 of 2) 04/03/2021 02/06/2021 ANNUAL WELLNESS VISIT 12/13/2024 12/14/2023 , 11/30/2022, 10/15/2021 LIPID PANEL 12/13/2024 12/14/2023, 11/05, 10/15/2021, Additional history exists COVID-19 Vaccine (5 - 2024-2 6 season) 2025 02/24/2022, 10/15/2021, 05/04/2021, Additional history exists INFLUENZA VACCINE 03/06/2025 02/24/2022, , 02/24/2022, Additional history exists TDAP/TD VACCINES (3 - Td or Tdap) 05/13/2030 020, 04/17/2020 Pneumococcal Vaccine 50+ Completed 02/02/2021, 08/04 Medical Devices Implanted Type Area Sound System Installer Device Identifier Shelf Expiration Date Model / Serial / Lot Hemost Abs Surgifoam [id number] 8x12 10mm - [id number] Implanted:Qty : 1 on 05/07/2022 by Conner Fry MD at [facility] Implant N/A: Spine Cervical [employer] DIV [employer] J AND J 11/17/2025 [id number] / / [id number] Kt Seal Hemos Abs Floseal Matrx Fast/Prep 10ml - [id number] Implanted:Qty : 1 on 05/07/2022 by Conner Fry MD at [facility] Implant N/A: Spine Cervical Silicon Kinetics 02/28/2024 [id number] / / [id number] Bone Lordotic Asr [id number] Fzd - [id number] Implanted:Qty : 1 on 05/07/2022 by Conner Fry MD at [facility] Implant N/A: Spine Cervical [employer] A [employer] 10/05/2024 [id number] / / [id number] Plt Acp Zevo 1lvl 17mm Ns - [id number] Implanted:Qty : 1 on 05/07/2022 by Conner Fry MD at [facility] Implant N/A: Spine Cervical [employer] [id number] / / NA Scrw St Zevo 2thrd S/Tap 3.5x13mm - [id number] Implanted:Qty : 4 on 05/07/2022 by Conner Fry MD at [facility] Implant N/A: Spine Cervical [employer] [id number] / / NA Knee Procedures Procedure Name Priority Date/Time Associated Diagnosis [...] ECG 12-LEAD STAT 01/30/2025 12:20 PM EDT MAGNESIUM STAT 01/30/2025 12:20 PM EDT HIGH SENSITIVITIY TROPONIN T 1HR STAT 01/30/2025 12:20 PM EDT XR CHEST 1 VW STAT 01/30/2025 11:22 AM EDT LIGHT BLUE TOP STAT 01/30/2025 11:[address] TOP STAT 01/30/2025 11:00 AM EDT GOLD TOP - SST STAT 01/30/2025 11:00 AM EDT LAVENDER TOP STAT 01/30/2025 11:00 AM EDT DK GREEN TOP STAT 01/30/2025 11:00 AM EDT CBC AND DIFFERENTIAL STAT 01/30/2025 11:00 AM EDT LACTIC ACID, PLASMA STAT 01/30/2025 1 1:00 AM EDT SCAN SLIDE STAT 01/30/2025 11:00 AM EDT CBC WITH AUTO DIFFERENTIAL STAT 01/30/2025 11:00 AM EDT B-TYPE NATRIURETIC PEPTIDE STAT 01/30/2025 11:00 AM EDT LIPASE STAT 01/30/2025 11:00 AM EDT COMPREHENSIVE METABOLIC PANEL STAT 01/30/2025 11:00 AM EDT TROPONIN STAT 01/30/2025 11:00 AM EDT RAINBOW DRAW STAT 01/30/2025 11:00 AM EDT ECG 12-LEAD STAT 01/30/2025 10:57 AM EDT SCANNED - TELEMETRY 01/30/2025 1 0:55 AM EDT [facility]IT[facility] ILL/INJURED PATIENT INIT 30-74 MIN Routine 01/30/2025 10:43 AM EDT from Last 3 Months Results * (ABNORMAL) Basic Metabolic Panel (01/31/2025 4:51 AM EDT) Glucose 144(H) 65 - 99 mg/dL 01/31/2025 5:46 AM EDT [facility] BUN 40.8(H) 8.0 - 23.0 mg/dL 01/31/2025 5:46 AM EDT [facility] Creatinine 1.47(H) 0.76 - 1.27 mg/dL 01/31/2025 5:46 AM EDT [facility] Sodium 142 136 - 145 mmol/L 01/31/2025 5:46 AM EDT [facility] Potassium 4.7 3.5 - 5.2 mmol/L 01/31/2025 5:46 AM EDT [facility] Chloride 110(H) 98 - 107 mmol/L 01/31/2025 5:46 AM EDT [facility] CO2 22.0 22.0 - 29.0 mmol/L 01/31/2025 5:46 AM EDT [facility] Calcium 8.1(L) 8.6 - 10.5 mg/dL 01/31/2025 5:46 AM EDT [facility] BUN/Creatinine Ratio 27.8(H) 7.0 - 25.0 01/31/2025 5:46 AM EDT [facility] Anion Gap 10.0 5.0 - 15.0 mmol/L 01/31/2025 5:46 AM EDT [facility] eGFR 47.9(L) >60.0 mL/min/1.7 3 01/31/2025 5:46 AM EDT [facility] Blood Venipuncture / Unknown 01/31/2025 4:51 AM EDT 01/31/2025 5:11 AM EDT [facility] - 01/31/2025 5:46 AM EDT GFR [...] does not include race as a factor us Chandrakant Jamison MD LAB BLOOD ORDERABLES Final Result [facility]
[address] [place] [address], * (ABNORMAL) CBC (No Diff) (01/31/2025 4:50 AM EDT) WBC 10.92(H) 3.40 - 10.80 10*3/mm3 01/31/2025 5:47 AM EDT [facility] RBC 4.44 4.14 - 5.80 10*6/mm3 01/31/2025 5:47 AM EDT [facility] Hemoglobin 9.8(L) 13.0 - 17.7 g/dL 01/31/2025 5:47 AM EDT [facility] Hematocrit 33.7(L) 37.5 - 51.0 % 01/31/2025 5:47 AM EDT [facility] MCV 75.9(L) 79.0 - 97.0 fL 01/31/2025 5:47 AM EDT [facility] MCH 22.1(L) 26.6 - 33.0 pg 01/31/2025 5:47 AM EDT [facility] MCHC 29.1(L) 31.5 - 35.7 g/dL 01/31/2025 5:47 AM EDT [facility] RDW 24.1(H) 12.3 - 15.4 % 01/31/2025 5:47 AM EDT [facility] RDW-SD 64.9(H) 37.0 - 54.0 fl 01/31/2025 5:47 AM EDT [facility] MPV 11.1 6.0 - 12.0 fL 01/31/2025 5:47 AM EDT [facility] Platelets 200 140 - 450 10*3/mm3 01/31/2025 5:47 AM EDT [facility] Blood Venipuncture / Unknown 01/31/2025 4:50 AM EDT 01/31/2025 5:16 AM EDT us Chandrakant Jamison MD LAB BLOOD ORDERABLES Final Result [facility]
[address] [place] [address], * Urinalysis, Microscopic Only - Urine, Clean Catch (01/31/2025 12:33 AM EDT) RBC, UA 0-2 None Seen, 0-2 /HPF 01/31/2025 1:19 AM EDT [facility] WBC, UA 0-2 None Seen, 0-2 /HPF 01/31/2025 1:19 AM EDT [facility] Comment:Urine culture not in dicated. Bacteria, UA None Seen None Seen /HPF 01/31/2025 1:19 AM EDT [facility] Squamous Epithelial Cells, UA 0-2 None Seen, 0-2 /HPF [facility] Hyaline Casts, UA 0-2 None Seen /LPF 01/31/2025 1:19 AM EDT [facility] Methodology Automated Microscopy 01/31/2025 1:19 AM EDT [facility] Urine Urine specimen obtained by clean catch procedure / Unknown Collection / Unknown 01/31/2025 12:33 AM EDT 01/31/2025 12:47 AM EDT us Chandrakant Jamison MD URINE ORDERABLES Final Res ult [facility]
[address] [place] [address], * (ABNORMAL) Urinalysis With Culture If Indicated - Urine, Clean Catch (01/31/2025 12:33 AM EDT) Color, UA Yellow Yellow, Straw 01/31/2025 1:15 AM EDT [facility] Appearance, UA Clear Clear 01/31/2025 1:15 AM EDT [facility] pH, UA 5.5 5.0 - 8.0 01/31/2025 1:15 AM EDT [facility] Specific [place], UA 1.016 1.005 - 1.030 01/31/2025 1:15 AM EDT [facility] Glucose, UA Negative Negative 01/31/2025 1:15 AM EDT [facility] Ketones, UA Negative Negative 01/31/2025 1:15 AM EDT [facility] Bilirubin, UA Negative Negative 01/31/2025 1:15 AM EDT [facility] Blood, UA Negative Negative 01/31/2025 1:15 AM EDT [facility] Protein, UA 30 mg/dL (1+)(A) Negative 01/31/2025 1:15 AM EDT [facility] Leuk Esterase, UA Negative Negative 01/31/2025 1:15 AM EDT [facility] Nitrite, UA Negative Negative 01/31/2025 1:15 AM EDT [facility] Urobilinogen, UA 0.2 E.U./dL 0.2 - 1.0 E.U./dL 01/31/2025 1:15 AM EDT [facility] Urine Urine specimen obtained by clean catch procedure / Unknown Collection / Unknown 01/31/2025 12:33 AM EDT 01/31/2025 12:47 AM EDT Narrative [facility] - 01/31/2025 1:15 AM EDT In absence of clinical symptoms, the presence of pyuria, bacteria, and/or nitrites on the urinalysis result does not correlate with infection. Chandrakant Jamison MD URINE ORDERABLES Final Res ult Performing Organization Address City/[facility]/ZIP Co de Phone Number [facility]
[address] [place] [address], * Telemetry Scan (01/30/2025 6:57 PM EDT) Only the most recent of2 resultswithin the time period is included. [facility] ECG ORDERABLES Final Result * STAT Lactic Acid, Reflex (01/30/2025 2:58 PM EDT) Lactate 1.6 0.5 - 2.0 mmol/L 01/30/2025 3:37 PM EDT [facility] Comment:Falsely depressed re sults may occur on samples drawn from patients receiving N-Acetylcysteine (NAC) or Metamizole. Blood Venipuncture / Unknown 01/30/2025 2:58 PM EDT 01/30/2025 3:03 PM EDT Chandrakant Jamison MD LAB BLOOD ORDERABLES Final Result Performing Organization Address City/[facility]/ZIP Co de Phone Number [facility]
[address] [place] [address], * ECG 12 Lead QT Measurement (01/30/2025 12:20 PM EDT) Only the most recent of2 resultswithin the time period is included. QT Interval 456 ms ECG QTC Interval [...] undetermined rhythm, needs review Confirmed by PEDRITO ROBERTS MD ([id number]) on 01/31/2025 11:51:11 AM Referred By: EDMD Confirmed By: PEDRITO ROBERTS MD Procedure Note Pedrito Roberts MD - 01/31/2025 Test Reason : QT [...] undetermined rhythm, needs review Confirmed by PEDRITO ROBERTS MD ([id number]) on 01/31/2025 11:51:11 AM Referred By: ED Confirmed By: PEDRITO ROBERTS MD Pedrito Roberts MD ECG ORDERABLES Final Res ult ECG * (ABNORMAL) High Sensitivity Troponin T 1Hr (01/30/2025 12:20 PM EDT) Pathologist [facility] HS Troponin T 93(HH) <22 ng/L 01/30/2025 12:52 PM EDT [facility] Troponin T Numeric Delta 10 ng/L 01/30/2025 12:52 PM EDT [facility] Troponin T % Delta 12 Abnormal if >/= 20% 01/30/2025 12:52 PM EDT [facility] Blood Venipuncture / Unknown 01/30/2025 12:20 PM EDT 01/30/2025 12:25 PM EDT Narrative [facility] - 01/30/2025 12:52 PM EDT [...] due to an underlying chronic condition. Pedrito Roberts MD LAB BLOOD ORDERABLES Nicole l Result [facility]
[address] [place] [address], * Magnesium (01/30/2025 12:20 PM EDT) [facility] Magnesium 1.7 1.6 - 2.4 mg/dL 01/30/2025 2:17 PM EDT [facility] Blood Venipuncture / Unknown 01/30/2025 12:20 PM EDT 01/30/2025 12:25 PM EDT Chandrakant Jamison MD LAB BLOOD ORDERABLES Final Result Performing Organization Address City/[facility]/ZIP Co de Phone Number [facility]
[address] [place] [address], [place] [phone] * XR Chest 1 View (01/30/2025 11:22 AM EDT) Anatomical Region Laterality Modality Body N/A Radiographic Lynette ging 01/30/2025 11:2 6 AM EDT Impressions 01/30/2025 11:27 AM EDT Impression: 1.Enlarged cardiac silhouette. 2.Nonspecific generalized interstitial prominence likely chronic. Electronically Signed: Macho Garcia MD 01/30/2025 11:27 AM EDT Workstation ID: [id number] Narrative 01/30/2025 11:27 AM EDT XR CHEST [...] MD 01/30/2025 11:27 AM EDT Workstation ID: [id number] Pedrito Roberts MD IMG DIAGNOSTIC IMAGING OR DERABLES Final Result * Lane Top (01/30/2025 11:00 AM EDT) Extra Tube Hold for add-ons. 01/30/2025 11:15 AM EDT [facility] Comment:Auto resulted. Blood Venipuncture / Unknown 01/30/2025 11:00 AM EDT 01/30/2025 11:05 AM EDT Pedrito Roberts MD LAB BLOOD ORDER ONLY Nicole l Result Performing Organization Address [facility] Co de Phone Number [facility]
[address] [place] [address], [place] [phone] * Gold Top - SST (01/30/2025 11:00 AM EDT) Extra Tube Hold for add-ons. 01/30/2025 11:15 AM EDT [facility] Comment:Auto resulted. Blood Venipuncture / Unknown 01/30/2025 11:00 AM EDT 01/30/2025 11:05 AM EDT Pedrito Roberts MD LAB BLOOD ORDER ONLY Nicole l Result Performing Organization Address [facility] de Phone Number [facility]
[address] [place] [address], [place] [phone] * Green Top (Gel) (01/30/2025 11:00 AM EDT) Extra Tube Hold for add-ons. 01/30/2025 11:15 AM EDT [facility] Comment:Auto resulted. Blood Venipuncture / Unknown 01/30/2025 11:00 AM EDT 01/30/2025 11:05 AM EDT Pedrito Roberts MD LAB BLOOD ORDER ONLY Nicole l Result Performing Organization Address [facility] Co de Phone Number [facility]
[address] [place] [address], [place] [phone] * Scan Slide (01/30/2025 11:00 AM EDT) Anisocytosis Mod/2+ None Seen 01/30/2025 11:35 AM EDT [facility] Ovalocytes Slight/1+ None Seen 01/30/2025 11:35 AM EDT [facility] WBC Morphology Normal Normal 01/30/2025 11:35 AM EDT [facility] Platelet Morphology Normal Normal 01/30/2025 11:35 AM T [facility] Blood Venipuncture / Unknown 01/30/2025 11:00 AM EDT 01/30/2025 11:05 AM EDT Pedrito Roberts MD LAB BLOOD ORDERABLES Nicole l Result [facility]
[address] [place] [address], * (ABNORMAL) CBC Auto Differential (01/30/2025 11:00 AM EDT) WBC 10.08 3.40 - 10.80 10*3/mm3 01/30/2025 11:35 AM EDT [facility] RBC 5.21 4.14 - 5.80 10*6/mm3 01/30/2025 11:35 AM EDT [facility] Hemoglobin 11.8(L) 13.0 - 17.7 g/dL 01/30/2025 11:35 AM EDT [facility] Hematocrit 40.7 37.5 - 51.0 % 01/30/2025 11:35 AM EDT [facility] MCV 78.1(L) 79.0 - 97.0 fL 01/30/2025 11:35 AM EDT [facility] MCH 22.6(L) 26.6 - 33.0 pg 01/30/2025 11:35 AM EDT [facility] MCHC 29.0(L) 31.5 - 35.7 g/dL 01/30/2025 11:35 AM EDT [facility] RDW 24.6(H) 12.3 - 15.4 % 01/30/2025 11:35 AM EDT [facility] RDW-SD 68.2(H) 37.0 - 54.0 fl 01/30/2025 11:35 AM [facility] MPV 10.7 6.0 - 12.0 fL 01/30/2025 11:35 AM [facility] Platelets 220 140 - 450 10*3/mm3 01/30/2025 11:35 AM [facility] Neutrophil % 72.7 42.7 - 76.0 % 01/30/2025 11:35 AM [facility] Lymphocyte % 17.2(L) 19.6 - 45.3 % 01/30/2025 11:35 AM [facility] Monocyte % 2.9(L) 5.0 - 12.0 % 01/30/2025 11:35 AM [facility] Eosinophil % 2.3 0.3 - 6.2 % 01/30/2025 11:35 AM [facility] Basophil % 0.6 0.0 - 1.5 % 01/30/2025 11:35 AM [facility] Immature Grans % 4.3(H) 0.0 - 0.5 % 01/30/2025 11:35 AM [facility] Neutrophils, Absolute 7.34(H) 1.70 - 7.00 10*3/mm3 01/30/2025 11:35 AM [facility] Lymphocytes, Absolute 1.73 0.70 - 3.10 10*3/mm3 01/30/2025 11:35 AM [facility] Monocytes, Absolute 0.29 0.10 - 0.90 10*3/mm3 01/30/2025 11:35 AM [facility] Eosinophils, Absolute 0.23 0.00 - 0.40 10*3/mm3 01/30/2025 11:35 AM [facility] Basophils, Absolute 0.06 0.00 - 0.20 10*3/mm3 01/30/2025 11:35 AM [facility] Immature Grans, Absolute 0.43(H) 0.00 - 0.05 10*3/mm3 01/30/2025 11:35 AM EDT [facility] nRBC 0.7(H) 0.0 - 0.2 /100 WBC 01/30/2025 11:35 AM EDT [facility] Blood Venipuncture / Unknown 01/30/2025 11:00 AM EDT 01/30/2025 11:05 AM EDT Narrative [facility] - 01/30/2025 11:35 AM EDT Appended report. These results have been appended to a previously verified report. Pedrito Roberts MD LAB BLOOD ORDERABLES Nicole l Result [facility]
[address] [place] [address], * Lavender Top (01/30/2025 11:00 AM EDT) Extra Tube hold for add-on 01/30/2025 11:15 AM EDT [facility] Comment:Auto resulted Blood Venipuncture / Unknown 01/30/2025 11:00 AM EDT 01/30/2025 11:05 AM EDT Pedrito Roberts MD LAB BLOOD ORDER ONLY Nicole l Result [facility]
[address] [place] [address], [place] [phone] * Light Blue Top (01/30/2025 11:00 AM EDT) Extra Tube Hold for add-ons. 01/30/2025 11:15 AM EDT [facility] Comment:Auto resulted Blood Venipuncture / Unknown 01/30/2025 11:00 AM EDT 01/30/2025 11:05 AM EDT Pedrito Roberts MD LAB BLOOD ORDER ONLY Nicole l Result Performing Organization Address [facility] Co de Phone Number [facility]
[address] [place] [address], * (ABNORMAL) High Sensitivity Troponin T (01/30/2025 11:00 AM EDT) HS Troponin T 83(HH) <22 ng/L 01/30/2025 11:39 AM EDT [facility] Blood Venipuncture / Unknown 01/30/2025 11:00 AM EDT 01/30/2025 11:05 AM EDT [facility] - 01/30/2025 11:39 AM EDT High [...] due to an underlying chronic condition. Pedrito Roberts MD LAB BLOOD ORDERABLES Nicole l Result Performing Organization Address [facility] Co de Phone Number [facility]
[address] [place] [address], * (ABNORMAL) BNP (01/30/2025 11:00 AM EDT) proBNP 5,435.0(H) 0.0 - 1,800.0 pg/mL 01/30/2025 11:38 AM EDT [facility] Blood Venipuncture / Unknown 01/30/2025 11:00 AM EDT 01/30/2025 11:05 AM EDT [facility] - 01/30/2025 11:38 AM EDT This [...] Positive >[address] Negative <300 Pedrito Roberts MD LAB BLOOD ORDERABLES Nicole l Result Performing Organization Address [facility] Co de Phone Number [facility]
[address] [place] [address], * (ABNORMAL) Lipase (01/30/2025 11:00 AM EDT) Lipase 104(H) 13 - 60 U/L 01/30/2025 11:38 AM EDT [facility] Blood Venipuncture / Unknown 01/30/2025 11:00 AM EDT 01/30/2025 11:05 AM EDT Pedrito Roberts MD LAB BLOOD ORDERABLES Nicole l Result Performing Organization Address [facility] de Phone Number [facility]
[address] [place] [address], * (ABNORMAL) Lactic Acid, Plasma (01/30/2025 11:00 AM EDT) Lactate 3.6(HH) 0.5 - 2.0 mmol/L 01/30/2025 1:43 PM EDT [facility] Comment:Falsely depressed re sults may occur on samples drawn from patients receiving N-Acetylcysteine (NAC) or Metamizole. Blood Venipuncture / Unknown 01/30/2025 11:00 AM EDT 01/30/2025 11:05 AM EDT Chandrakant Jamison MD LAB BLOOD ORDERABLES Final Result [facility]
[address] [place] [address], * (ABNORMAL) Comprehensive Metabolic Panel (01/30/2025 11:00 AM EDT) Glucose 143(H) 65 - 99 mg/dL 01/30/2025 11:39 AM EDT [facility] BUN 38.9(H) 8.0 - 23.0 mg/dL 01/30/2025 11:39 AM EDT [facility] Creatinine 1.65(H) 0.76 - 1.27 mg/dL 01/30/2025 11:39 AM EDT [facility] Sodium 140 136 - 145 mmol/L 01/30/2025 11:39 AM EDT [facility] Potassium 4.2 3.5 - 5.2 mmol/L 01/30/2025 11:39 AM EDT [facility] Comment:Specimen hemolyzed. Result may be falsely elevated. Chloride 108(H) 98 - 107 mmol/L 01/30/2025 11:39 AM EDT [facility] CO2 16.2(L) 22.0 - 29.0 mmol/L 01/30/2025 11:39 AM EDT [facility] Calcium 8.2(L) 8.6 - 10.5 mg/dL 01/30/2025 11:39 AM EDT [facility] Total Protein 6.3 6.0 - 8.5 g/dL 01/30/2025 11:39 AM EDT [facility] Albumin 3.2(L) 3.5 - 5.2 g/dL 01/30/2025 11:39 AM EDT [facility] ALT (SGPT) 8 1 - 41 U/L 01/30/2025 11:39 AM EDT [facility] AST (SGOT) 27 1 - 40 U/L 01/30/2025 11:39 AM EDT [facility] Comment:Specimen hemolyzed. Result may be falsely elevated. Alkaline Phosphatase 133(H) 39 - 117 U/L 01/30/2025 11:39 AM EDT [facility] Total Bilirubin 0.2 0.0 - 1.2 mg/dL 01/30/2025 11:39 AM EDT [facility] Globulin 3.1 gm/dL 01/30/2025 11:39 AM EDT [facility] Comment:Calculated Result A/G Ratio 1.0 g/dL 01/30/2025 11:39 AM EDT [facility] BUN/Creatinine Ratio 23.6 7.0 - 25.0 01/30/2025 11:39 AM EDT [facility] Anion Gap 15.8(H) 5.0 - 15.0 mmol/L 01/30/2025 11:39 AM EDT [facility] eGFR 41.7(L) >60.0 mL/min/1.7 3 01/30/2025 11:39 AM EDT [facility] Blood Venipuncture / Unknown 01/30/2025 11:00 AM EDT 01/30/2025 11:05 AM EDT Narrative [facility] - 01/30/2025 11:39 AM EDT GFR [...] does not include race as a factor us Pedrito Roberts MD LAB BLOOD ORDERABLES Nicole crowe Result [facility]
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 Member ID:[id number] Relation to Subscriber:Self Name:José Basurto Jr. Subscriber ID:[id number] Payer ID:[id number] Group ID:Not on file Type:Not on file Address: 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 - SCAN 03/26/2022 9:56 AM POA, [facility], 9 * CPR (Attempt to Resuscitate) (Latest Code Status on File) Date Activated Date Inactivated Comments 01/30/2025 2:04 PM 01/31/2025 1:13 PM Question Answer Comments Code Status (Patient has no pulse and is not breathing): CPR (Attempt to Resuscitate) Medical Interventions (Patie nt has pulse or is breathing): Full Support * CPR (Attempt to Resuscitate) Date Activated Date Inactivated Comments 05/07/2022 7:32 PM 05/11/2022 1:32 PM Question Answer Comments Code Status (Patient has no pulse and is not breathing): CPR (Attempt to Resuscitate) Medical Interventions (Patie nt has pulse or is breathing): Full Care Teams Square Cutter Relationship Specialty Start Date End Date Raphael Mendoza MD [address] [place] [address] PCP - General Family Medicine 05/05/22
[2025-02-13 09:29] LABS: Hematocrit 36.0 % (42.0-52.0); Hemoglobin 10.7 g/dL (14.1-18.0); Immature Granulocytes % 1.1 %; Mean Corpuscular HGB Conc 29.7 g/dL (31.8-35.4); Mean Corpuscular Hemoglobin 22.4 pg (27.0-31.2); Mean Corpuscular Volume 75.5 fl (80-94); Nucleated Red Blood Cells % 0 %; Platelet Count 255 K/mm3 (142-424); Red Blood Count 4.77 M/mm3 (4.60-6.20); Red Cell Distribution Width-SD 66.5 fL; White Blood Count 8.0 K/mm3 (4.8-10.8)
[2025-02-13 10:03] LABS: Alanine Aminotransferase 9 U/L (12-78); Albumin Level 3.5 g/dl (3.5-5.0); Alkaline Phosphatase 141 U/L (38-126); Anion Gap 13.3 mEq/L (5-15); Aspartate Amino Transferase 19 U/L (17-59); Bilirubin,Direct 0.2 mg/dl (0.0-0.4); Bilirubin,Indirect 0.3 mg/dL (0.0-0.9); Bilirubin,Total 0.5 mg/dl (0.2-1.3); Bilirubin,Unconjugated 0.3 mg/dL (0.0-1.1); Blood Urea Nitrogen 42 mg/dl (9-20); Calcium 9.0 mg/dl (8.4-10.2); Carbon Dioxide 23 mmol/L (22.0-30.0); Chloride 107 mmol/L (98-107); Cholesterol 144 mg/dl (140-200); Creatinine,Serum 1.60 mg/dl (0.66-1.25); Estimated Glomerular Filt Rate 42 ml/min (>60); GFR (African American) 51 ML/MIN (>60); Glucose 98 mg/dl (74-100); HDL Cholesterol 27 mg/dl (40-60); Magnesium 2.0 mg/dl (1.6-2.3); Potassium 4.3 mmoL/L (3.5-5.1); Sodium 139 mmol/L (136-145); Total Protein,Serum 6.7 g/dl (6.3-8.2); Triglycerides 85 mg/dl (30-150)
[2025-02-13 10:18] LABS: Free T4 (Free Thyroxine) 1.17 ng/dl (0.78-2.19)
[2025-02-13 10:33] LABS: Thyroid Stimulating Hormone 2.37 uIU/mL (0.465-4.68)
== END 2025-02-13 23:59 | disposition home or self-care (01) ==
LOC: LAB 09:04
PROVIDERS: PCP Family Medicine; Visit Provider Nurse Practitioner
DX: I25.10 Atherosclerotic heart disease of native coronary artery without angina pectoris (principal); I10 Essential (primary) hypertension; E78.5 Hyperlipidemia, unspecified
CPT/HCPCS: 36415; 80048; 80061; 80076; 83735; 84439; 84443; 85025

== ENCOUNTER 2025-02-20 10:28 | Outpatient (CLI) | payer MEDICARE, OTHER, SELFPAY ==
--- OUTSIDE RECORDS SUMMARY | 2025-01-30 10:43 | XMS_ITS | Encounter Summary ---
Author Organization [facility] Address [address] [place] [id number] Care Team Providers Care Allergy Specialist Name Role Phone Raphael Mendoza MD Primary Care Provider [phone] Reason for Visit * Reason Comments Medication Reaction * Auth/Cert (Routine) Specialty Diagnoses / Procedures Referred By Contac t Referred To Contact Diagnoses Drug reaction Anaphylaxis Referral ID Status Reason Start Date Expiration Date Visits Re quested Visits Authorized [id number] 1 1 Encounter Details Date Type Department Care Team (Late st Contact Info) Description 01/30/2025 10:43 AM EDT - 01/31/2025 10:55 AM EDT Hospital Encounter [address] [place] [id number] Pedrito Hu MD [address] [facility] [place] [address] Chandrakant Jamison MD [address] [address] Maritza Contreras DO 1780 [facility] [address] [place] [address] Episode of unresponsiveness (Primary Dx); Acute kidney [...] or training? Not on file Preferred Language New Zealander 05/06/2022 Sex and Gender Information Value Date [...] 10:52 AM EDT Musa Correa RN * [place] Suicide Severity Rating Scale (Screener/Recent Self-Report) Question [...] from the original note were not included. [facility] DISCHARGE SUMMARY Patient Name: José [...] A-fib, CAD who was sent from outpatient [facility] to [facility] for concern for apparent anaphylactic reaction during IV iron infusion. The patient was treated with IM epi, Solu-Medrol and Benadryl prior toarrival. Patient had recently been treated in [facility] and had received dose of IV iron while admitted to the hospital. PCP had set up patient for outpatient iron infusion in [place] on 01/30. Duringthat infusion he developed chest tightness and then became somnolent, EMS was called. Patient was hypotensive, bradycardic but improved with above treatment. He is back at baseline, blood pressure doing well Probable Anaphylactoid Reaction to IV iron infusion -had 1st iv iron dose ~1 week ago during recent hospitalization at [facility] -was getting outpatient IV iron infusion at [facility] 01/30, developed acute dyspnea &abdominal crampy pain followed by hypotension, bradycardia (hr dropped to 20's) and somnolence... received IM epi, solumedrol 125mg, benadryl and EMS brought to [facility] hospital - Completed prednisone for short course, Pepcid twice daily -IV iron placed on patient allergy list CAD, recent cardiac stent ~6 weeks ago HFrEF (data deficit) Persistent Afib -6 weeks ago s/p cardiac stent ([facility]) & had afib at that time. Was discharged on asa& plavix & eliquis. Holding eliquis (recent gi bleed) -Continue asa & plavix (recent cardiac stent) -no b-juani due to previous hypotension on this medicine and bradycardia -1 week ago admitted [facility] w/ chf exacerbation. -follows w/ nailer hand in [facility]. Called and talked to his [...] MD 01/30/2025 11:27 AM EDT Workstation ID: [id number] Results for orders placed during the hospital [...] minutes on this discharge activity which included: [id number] with the patient, reviewing the data in [...] medicine. * Discharge Instr - Diet* Misti aVlencia RN - 01/31/2025 10:05 AM EDT Regular Diet * Attachments The following attachments cannot be sent through Care Everywhere. * Clopidogrel Tablets ([place] Zealander) * Anaphylactic Reaction Adult Flnm-il-Sdca ([place]) * Iron Deficiency Anemia Adult Bdum-ju-Xoxg ([place]) documented in this encounter Medications at Time of Discharge aspirin 81 MG EC tabletIndications :Coronary artery disease involving hoh coronary artery of hoh heart without angina pectoris Take 1 tablet by mouth Daily. 90 tablet 1 05/20/2022 atorvastatin (LIPITOR) 40 MG tabletIndications :Coronary artery disease involving hoh coronary artery of hoh heart without angina pectoris Take 1 tablet [...] from the original note were not included. [facility] HISTORY AND PHYSICAL Patient Name: José Basurto Jr. : 1945 Primary Care Physician: Raphael Mendoza MD Date of admission: 01/30/2025 Subjective Subjective Chief Complaint: anaphylaxis HPI: José Basurto Jr. is a 79 y.o. male w/ hx cad, CHF, recent afib, gastric ulcer/gi bleed, ckd 3, copd. Sent from outpatient infusion center in [facility] to [facility] ED due to apparent anaphylactic reaction during iv iron infusion. Received IM epi, solumedrol 125, benadryl prior to arrival. Patient typically gets care in [facility]. Has remote hx of CABG. [facility], [...] up patient for IV iron infusion in [place] which was today. Patient states that during [...] FUSION C3-4; Surgeon: Conner Fry MD; Location: [facility]; Service: Neurosurgery; Laterality: N/A; CORONARY ARTERY BYPASS [...] motion Neuro: Face symmetric, speech clear, equal incident response coordinator, moves all extremities Cardiac: irr irr, regular [...] Garcia MD 01/30/2025 11:27 AM EDT Workstation ID:[id number] Results for orders placed during the hospital [...] ~1 week ago during recent hospitalization at [facility] -was getting outpatient IV iron infusion at [facility] today, developed acute dyspnea & abdominal crampy pain followed by hypotension, bradycardia (hr dropped to 20's) and somnolence... received IM epi, solumedrol 125mg, benadryl and EMS brought to [facility] hospital -will schedule prednisone 40mg x 2 days starting tomorrow; pepcid bid x 2 days -monitor overnight, nurse to monitor for signs of biphasic reaction (in which case would give IM epi) -iv iron placed on allergy list CAD, recent cardiac stent ~6 weeks ago HFrEF (data deficit) Persistent Afib -6 weeks ago s/p cardiac stent ([facility]) & had afib at that time. Was discharged on asa& plavix & eliquis. Holding eliquis (recent gi bleed) -will continue asa & plavix (recent cardiac stent) -no b-juani due to previous hypotension on this medicine and bradycardia -1 week ago admitted [facility] w/ chf exacerbation, initiated on entresto, aldactone; continued lasix. Will hold these for now, restart as bp & renal fxn allow -follows w/ nailer hand in [facility] Recent GI bleed, due to [...] Chiu RN - 01/31/2025 9:39 AM EDT [facility] NURSE NAVIGATOR [...] via EMS from the infusion center in [facility] secondary to a episode of unresponsiveness. The patient had just receivedan infusion of iron when he lost consciousness. The facility reported agonal respirations. They didperform fud-anahp-rhjc ventilation. They also gave him a combination [...] gassy . This is likely relatedto the kpb-jugph-ggsq ventilation that was performed. The patient denies [...] FUSION C3-4; Surgeon: Conner Fry MD; Location: [facility]; Service: Neurosurgery; Laterality: N/A; CORONARY ARTERY BYPASS [...] deterioration of the following conditions: Circulatory failure, PRINCIPAL TRAINER failure or compromise and renal failure Critical [...] Level of Care: Telemetry [5] Diagnosis: Anaphylaxis [827044] Is patient appropriate for Inpatient Observation Unit?: Yes [1] No follow-up provider specified. Medication List No changes were made to your prescriptions during this visit. Pedrito Hu MD 01/30/25 1833 documented in this encounter Miscellaneous Notes * Case Management/Social Work - Jami Frias RN - 01/31/2025 10:05 AM EDT Continued Stay Note [facility] Patient Name: José Basurto Jr. Today's Date: [...] - TELEMETRY 01/30/2025 1 0:55 AM EDT [place] [facility] ILL/INJURED PATIENT INIT 30-74 MIN Routine 01/30/2025 10:43 AM EDT documented in this encounter Results * (ABNORMAL) Basic Metabolic Panel (01/31/2025 4:51 AM EDT) Glucose 144(H) 65 - 99 mg/dL 01/31/2025 5:46 AM EDT [facility] BUN 40.8(H) 8.0 - 23.0 mg/dL 01/31/2025 5:46 AM EDT [facility] Creatinine 1.47(H) 0.76 - 1.27 mg/dL 01/31/2025 5:46 AM EDT [facility] Sodium 142 136 - 145 mmol/L 01/31/2025 5:46 AM EDT [facility] Potassium 4.7 3.5 - 5.2 mmol/L 01/31/2025 5:46 AM EDT [facility] Chloride 110(H) 98 - 107 mmol/L 01/31/2025 5:46 AM EDT [facility] CO2 22.0 22.0 - 29.0 mmol/L 01/31/2025 5:46 AM EDT [facility] Calcium 8.1(L) 8.6 - 10.5 mg/dL 01/31/2025 5:46 AM EDT [facility] BUN/Creatinine Ratio 27.8(H) 7.0 - 25.0 01/31/2025 5:46 AM EDT [facility] Anion Gap 10.0 5.0 - 15.0 mmol/L 01/31/2025 5:46 AM EDT [facility] eGFR 47.9(L) >60.0 mL/min/1.7 3 01/31/2025 5:46 AM EDT [facility] Blood Venipuncture / Unknown 01/31/2025 4:51 AM EDT 01/31/2025 5:11 AM EDT [facility] - 01/31/2025 5:46 AM EDT [...] Jamison MD LAB BLOOD ORDERABLES Final Result [facility]
[address] [place] [address], * (ABNORMAL) CBC (No Diff) (01/31/2025 4:50 AM EDT) WBC 10.92(H) 3.40 - 10.80 10*3/mm3 01/31/2025 5:47 AM EDT [facility] RBC 4.44 4.14 - 5.80 10*6/mm3 01/31/2025 5:47 AM EDT [facility] Hemoglobin 9.8(L) 13.0 - 17.7 g/dL 01/31/2025 5:47 AM EDT [facility] Hematocrit 33.7(L) 37.5 - 51.0 % 01/31/2025 5:47 AM EDT [facility] MCV 75.9(L) 79.0 - 97.0 fL 01/31/2025 5:47 AM EDT [facility] MCH 22.1(L) 26.6 - 33.0 pg 01/31/2025 5:47 AM EDT [facility] MCHC 29.1(L) 31.5 - 35.7 g/dL 01/31/2025 5:47 AM EDT [facility] RDW 24.1(H) 12.3 - 15.4 % 01/31/2025 5:47 AM EDT [facility] RDW-SD 64.9(H) 37.0 - 54.0 fl 01/31/2025 5:47 AM EDT [facility] MPV 11.1 6.0 - 12.0 fL 01/31/2025 5:47 AM EDT [facility] Platelets 200 140 - 450 10*3/mm3 01/31/2025 5:47 AM T [facility] Blood Venipuncture / Unknown 01/31/2025 4:50 AM EDT 01/31/2025 5:16 AM EDT Chandrakant Jamison MD LAB BLOOD ORDERABLES Final Result [facility]
[address] [place] [address], * Urinalysis, Microscopic Only - Urine, Clean Catch (01/31/2025 12:33 AM EDT) RBC, UA 0-2 None Seen, 0-2 /HPF 01/31/2025 1:19 AM EDT [facility] WBC, UA 0-2 None Seen, 0-2 /HPF 01/31/2025 1:19 AM EDT [facility] Comment:Urine culture not in dicated. Bacteria, UA None Seen None Seen /HPF 01/31/2025 1:19 AM EDT [facility] Squamous Epithelial Cells, UA 0-2 None Seen, 0-2 /HPF 01/31/2025 1:19 AM EDT [facility] Hyaline Casts, UA 0-2 None Seen /LPF 01/31/2025 1:19 AM EDT [facility] Methodology Automated Microscopy 01/31/2025 1:19 AM EDT [facility] Urine Urine specimen obtained by clean catch procedure / Unknown Collection / Unknown 01/31/2025 12:33 AM EDT 01/31/2025 12:47 AM EDT us Chandrakant Jamison MD URINE ORDERABLES Final Res ult [facility]
[address] [place] [address], * (ABNORMAL) Urinalysis With Culture If Indicated - Urine, Clean Catch (01/31/2025 12:33 AM EDT) Color, UA Yellow Yellow, Straw 01/31/2025 1:15 AM EDT [facility] Appearance, UA Clear Clear 01/31/2025 1:15 AM EDT [facility] pH, UA 5.5 5.0 - 8.0 01/31/2025 1:15 AM EDT [facility] Specific [place], UA 1.016 1.005 - 1.030 01/31/2025 1:15 AM EDT [facility] Glucose, UA Negative Negative 01/31/2025 1:15 AM EDT [facility] Ketones, UA Negative Negative 01/31/2025 1:15 AM EDT [facility] Bilirubin, UA Negative Negative 01/31/2025 1:15 AM EDT [facility] Blood, UA Negative Negative 01/31/2025 1:15 AM EDT [facility] Protein, UA 30 mg/dL (1+)(A) Negative 01/31/2025 1:15 AM EDT [facility] Leuk Esterase, UA Negative Negative 01/31/2025 1:15 AM EDT [facility] Nitrite, UA Negative Negative 01/31/2025 1:15 AM EDT [facility] Urobilinogen, UA 0.2 E.U./dL 0.2 - 1.0 E.U./dL 01/31/2025 1:15 AM EDT [facility] Urine Urine specimen obtained by clean catch procedure / Unknown Collection / Unknown 01/31/2025 12:33 AM EDT 01/31/2025 12:47 AM EDT Narrative [facility] - 01/31/2025 1:15 AM EDT In absence of clinical symptoms, the presence of pyuria, bacteria, and/or nitrites on the urinalysis result does not correlate with infection. Chandrakant Jamison MD URINE ORDERABLES Final Res ult [facility]
[address] [place] [address], * Telemetry Scan (01/30/2025 6:57 PM EDT) [facility] ECG ORDERABLES Final Result * STAT Lactic Acid, Reflex (01/30/2025 2:58 PM EDT) Lactate 1.6 0.5 - 2.0 mmol/L 01/30/2025 3:37 PM EDT [facility] Comment:Falsely depressed re sults may occur on samples drawn from patients receiving N-Acetylcysteine (NAC) or Metamizole. Blood Venipuncture / Unknown 01/30/2025 2:58 PM EDT 01/30/2025 3:03 PM EDT us Chandrakant Jamison MD LAB BLOOD ORDERABLES Final Result [facility]
[address] [place] [address], * ECG 12 Lead QT Measurement (01/30/2025 [...] * Magnesium (01/30/2025 12:20 PM EDT) Pathologist [facility] Magnesium 1.7 1.6 - 2.4 mg/dL 01/30/2025 2:17 PM EDT [facility] Blood Venipuncture / Unknown 01/30/2025 12:20 PM EDT 01/30/2025 12:25 PM EDT Chandrakant Jamison MD LAB BLOOD ORDERABLES Final Result [facility]
[address] [place] [address], * (ABNORMAL) High Sensitivity Troponin T 1Hr (01/30/2025 12:20 PM EDT) Pathologist [facility] HS Troponin T 93(HH) <22 ng/L 01/30/2025 12:52 PM EDT [facility] Troponin T Numeric Delta 10 ng/L 01/30/2025 12:52 PM EDT [facility] Troponin T % Delta 12 Abnormal if >/= 20% 01/30/2025 12:52 PM EDT [facility] Blood Venipuncture / Unknown 01/30/2025 12:20 PM EDT 01/30/2025 12:25 PM EDT Narrative [facility] - 01/30/2025 12:52 PM [...] MD LAB BLOOD ORDERABLES Nicole l Result [facility]
[address] [place] [id number], * XR Chest 1 View (01/30/2025 11:22 AM EDT) Anatomical Region Laterality Modality Body N/A Radiographic Lynette ging 01/30/2025 11:2 6 AM EDT Impressions 01/30/2025 11:27 AM EDT Impression: 1.Enlarged cardiac silhouette. 2.Nonspecific generalized interstitial prominence likely chronic. Electronically Signed: Macho Garcia MD 01/30/2025 11:27 AM EDT Workstation ID: [id number] Narrative 01/30/2025 11:27 AM EDT XR CHEST [...] MD 01/30/2025 11:27 AM EDT Workstation ID: [id number] Pedrito Hu MD IMG DIAGNOSTIC IMAGING OR DERABLES Final Result * (ABNORMAL) Lactic Acid, Plasma (01/30/2025 11:00 AM EDT) Lactate 3.6(HH) 0.5 - 2.0 mmol/L 01/30/2025 1:43 PM EDT [facility] Comment:Falsely depressed re sults may occur on samples drawn from patients receiving N-Acetylcysteine (NAC) or Metamizole. Blood Venipuncture / Unknown 01/30/2025 11:00 AM EDT 01/30/2025 11:05 AM EDT Chandrakant Jamison MD LAB BLOOD ORDERABLES Final Result Performing Organization Address City/[facility]/ZIP Co de Phone Number [facility]
[address] [place] [address], * Scan Slide (01/30/2025 11:00 AM EDT) Anisocytosis Mod/2+ None Seen 01/30/2025 11:35 AM EDT [facility] Ovalocytes Slight/1+ None Seen 01/30/2025 11:35 AM EDT [facility] WBC Morphology Normal Normal 01/30/2025 11:35 AM EDT [facility] Platelet Morphology Normal Normal 01/30/2025 11:35 AM EDT [facility] Blood Venipuncture / Unknown 01/30/2025 11:00 AM EDT 01/30/2025 11:05 AM EDT Pedrito Hu MD LAB BLOOD ORDERABLES Nicole l Result [facility]
[address] [place] [address], * (ABNORMAL) CBC Auto Differential (01/30/2025 11:00 AM EDT) WBC 10.08 3.40 - 10.80 10*3/mm3 01/[facility]2025 [facility] RBC 5.21 4.14 - 5.80 10*6/mm3 01/30/2025 11:35 AM [facility] Hemoglobin 11.8(L) 13.0 - 17.7 g/dL 01/30/2025 11:35 AM [facility] Hematocrit 40.7 37.5 - 51.0 % 01/30/2025 11:35 AM [facility] MCV 78.1(L) 79.0 - 97.0 fL 01/30/2025 11:35 AM [facility] MCH 22.6(L) 26.6 - 33.0 pg 01/30/2025 11:35 AM [facility] MCHC 29.0(L) 31.5 - 35.7 g/dL 01/30/2025 11:35 AM [facility] RDW 24.6(H) 12.3 - 15.4 % 01/30/2025 11:35 AM [facility] RDW-SD 68.2(H) 37.0 - 54.0 fl 01/30/2025 11:35 AM [facility] MPV 10.7 6.0 - 12.0 fL 01/30/2025 11:35 AM [facility] Platelets 220 140 - 450 10*3/mm3 01/30/2025 11:35 AM [facility] Neutrophil % 72.7 42.7 - 76.0 % 01/30/2025 11:35 AM [facility] Lymphocyte % 17.2(L) 19.6 - 45.3 % 01/30/2025 11:35 AM [facility] Monocyte % 2.9(L) 5.0 - 12.0 % 01/30/2025 11:35 AM [facility] Eosinophil % 2.3 0.3 - 6.2 % 01/30/2025 11:35 AM [facility] Basophil % 0.6 0.0 - 1.5 % 01/30/2025 11:35 AM EDT [facility] Immature Grans % 4.3(H) 0.0 - 0.5 % 01/30/2025 11:35 AM EDT [facility] Neutrophils, Absolute 7.34(H) 1.70 - 7.00 10*3/mm3 01/30/2025 11:35 AM EDT [facility] Lymphocytes, Absolute 1.73 0.70 - 3.10 10*3/mm3 01/30/2025 11:35 AM EDT [facility] Monocytes, Absolute 0.29 0.10 - 0.90 10*3/mm3 01/30/2025 11:35 AM EDT [facility] Eosinophils, Absolute 0.23 0.00 - 0.40 10*3/mm3 01/30/2025 11:35 AM EDT [facility] Basophils, Absolute 0.06 0.00 - 0.20 10*3/mm3 01/30/2025 11:35 AM EDT [facility] Immature Grans, Absolute 0.43(H) 0.00 - 0.05 10*3/mm3 01/30/2025 11:35 AM EDT [facility] nRBC 0.7(H) 0.0 - 0.2 /100 WBC 01/30/2025 11:35 AM EDT [facility] Blood Venipuncture / Unknown 01/30/2025 11:00 AM EDT 01/30/2025 11:05 AM EDT Narrative [facility] - 01/30/2025 11:35 AM EDT Appended report. These results have been appended to a previously verified report. us Pedrito Hu MD LAB BLOOD ORDERABLES Nicole crowe Result [facility]
[address] [place] [address], * Light Blue Top (01/30/2025 11:00 AM EDT) Extra Tube Hold for add-ons. 01/30/2025 11:15 AM EDT [facility] Comment:Auto resulted Blood Venipuncture / Unknown 01/30/2025 11:00 AM EDT 01/30/2025 11:05 AM EDT Pedrito Hu MD LAB BLOOD ORDER ONLY Nicole l Result Performing Organization Address City/[facility]/ZIP Co de Phone Number [facility]
[address] [place] [address], * Lane Top (01/30/2025 11:00 AM EDT) Extra Tube Hold for add-ons. 01/30/2025 11:15 AM EDT [facility] Comment:Auto resulted. Blood Venipuncture / Unknown 01/30/2025 11:00 AM EDT 01/30/2025 11:05 AM EDT Pedrito Hu MD LAB BLOOD ORDER ONLY Nicole l Result Performing Organization Address City/[facility]/ZIP Co de Phone Number [facility]
[address] [place] [address], * Gold Top - SST (01/30/2025 11:00 AM EDT) Extra Tube Hold for add-ons. 01/30/2025 11:15 AM EDT [facility] Comment:Auto resulted. Blood Venipuncture / Unknown 01/30/2025 11:00 AM EDT 01/30/2025 11:05 AM EDT Pedrito Hu MD LAB BLOOD ORDER ONLY Nicole l Result Performing Organization Address City/[facility]/ZIP Co de Phone Number [facility]
[address] [place] [address], * Lavender Top (01/30/2025 11:00 AM EDT) Extra Tube hold for add-on 01/30/2025 11:15 AM EDT [facility] Comment:Auto resulted Blood Venipuncture / Unknown 01/30/2025 11:00 AM EDT 01/30/2025 11:05 AM EDT Pedrito Hu MD LAB BLOOD ORDER ONLY Nicole l Result Performing Organization Address City/[facility]/ZIP Co de Phone Number [facility]
[address] [place] [address], * Green Top (Gel) (01/30/2025 11:00 AM EDT) Extra Tube Hold for add-ons. 01/30/2025 11:15 AM EDT [facility] Comment:Auto resulted. Blood Venipuncture / Unknown 01/30/2025 11:00 AM EDT 01/30/2025 11:05 AM EDT Pedrito Hu MD LAB BLOOD ORDER ONLY Nicole l Result Performing Organization Address [facility] Co de Phone Number [facility]
[address] [place] [address], * (ABNORMAL) BNP (01/30/2025 11:00 AM EDT) proBNP 5,435.0(H) 0.0 - 1,800.0 pg/mL 01/30/2025 11:38 AM EDT [facility] Blood Venipuncture / Unknown 01/30/2025 11:00 AM EDT 01/30/2025 11:05 AM EDT Narrative [facility] - 01/30/2025 11:38 AM [...] ORDERABLES Nicole l Result Performing Organization Address City/[facility]/ZIP Co de Phone Number [facility]
[address] [place] [address], * (ABNORMAL) Lipase (01/30/2025 11:00 AM EDT) Lipase 104(H) 13 - 60 U/L 01/30/2025 11:38 AM EDT [facility] Blood Venipuncture / Unknown 01/30/2025 11:00 AM EDT 01/30/2025 11:05 AM EDT Pedrito Hu MD LAB BLOOD ORDERABLES Nicole l Result Performing Organization Address [facility] de Phone Number [facility]
[address] [place] [address], * (ABNORMAL) Comprehensive Metabolic Panel (01/30/2025 11:00 AM EDT) Glucose 143(H) 65 - 99 mg/dL 01/30/2025 11:39 AM EDT [facility] BUN 38.9(H) 8.0 - 23.0 mg/dL 01/30/2025 11:39 AM EDT [facility] Creatinine 1.65(H) 0.76 - 1.27 mg/dL 01/30/2025 11:39 AM EDT [facility] Sodium 140 136 - 145 mmol/L 01/30/2025 11:39 AM EDT [facility] Potassium 4.2 3.5 - 5.2 mmol/L 01/30/2025 11:39 AM [facility] Comment:Specimen hemolyzed. Result may be falsely elevated. Chloride 108(H) 98 - 107 mmol/L 01/30/2025 11:39 AM [facility] CO2 16.2(L) 22.0 - 29.0 mmol/L 01/30/2025 11:39 AM [facility] Calcium 8.2(L) 8.6 - 10.5 mg/dL 01/30/2025 11:39 AM [facility] Total Protein 6.3 6.0 - 8.5 g/dL 01/30/2025 11:39 AM [facility] [facility] Albumin 3.2(L) 3.5 - 5.2 g/dL 01/30/2025 11:39 AM [facility] ALT (SGPT) 8 1 - 41 U/L 01/30/2025 11:39 AM [facility] AST (SGOT) 27 1 - 40 U/L 01/30/2025 11:39 AM [facility] Comment:Specimen hemolyzed. Result may be falsely elevated. Alkaline Phosphatase 133(H) 39 - 117 U/L 01/30/2025 11:39 AM [facility] Total Bilirubin 0.2 0.0 - 1.2 mg/dL 01/30/2025 11:39 AM [facility] Globulin 3.1 gm/dL 01/30/2025 11:39 AM [facility] Comment:Calculated Result A/G Ratio 1.0 g/dL 01/30/2025 11:39 AM [facility] BUN/Creatinine Ratio 23.6 7.0 - 25.0 01/30/2025 11:39 AM [facility] Anion Gap 15.8(H) 5.0 - 15.0 mmol/L 01/30/2025 11:39 AM [facility] eGFR 41.7(L) >60.0 mL/min/1.7 3 01/30/2025 11:39 AM EDT [facility] Blood Venipuncture / Unknown 01/30/2025 11:00 AM EDT 01/30/2025 11:05 AM EDT [facility] - 01/30/2025 11:39 AM EDT [...] MD LAB BLOOD ORDERABLES Nicole l Result [facility]
[address] [place] [address], * (ABNORMAL) High Sensitivity Troponin T (01/30/2025 11:00 AM EDT) HS Troponin T 83(HH) <22 ng/L 01/30/2025 11:39 AM EDT [facility] Blood Venipuncture / Unknown 01/30/2025 11:00 AM EDT 01/30/2025 11:05 AM EDT Narrative [facility] - 01/30/2025 11:39 AM [...] MD LAB BLOOD ORDERABLES Nicole l Result [facility]
[address] [place] [address], * ECG 12 Lead QT Measurement (01/30/2025 [...] * Telemetry Scan (01/30/2025 10:55 AM EDT) [facility] Onbase ECG ORDERABLES Final Result * [place] [facility] ILL/INJURED PATIENT INIT 30-74 MIN [...] deterioration of the following conditions: Circulatory failure, PRINCIPAL TRAINER failure or compromise and renal failure Critical [...] charts Care discussed with: admitting provider Result [facility] Pedrito Hu MD PROCEDURE/MINOR SURGICAL ORDERABLES Final [...] Coronary atherosclerosis of unspecified type of vessel, hoh or graft Systolic CHF, chronic A-fib Atrial [...] tablet 40 mg 40 mg, Oral, Every Implementation Manager, First dose on Tue01/30/25 at 1430, Swallow [...] tablet 40 mg 40 mg, Oral, Every Implementation Manager, First dose on Tue01/30/25 at 1430, Swallow [...] BPA Driven Protocol Open Order & [facility] Electrolyte Replacement Protocol Algorithm to [...] documented as of this encounter Care Teams Allergy Specialist Relationship Specialty Start Date End Date Raphael Mendoza MD [address] [facility] [address] [place] [address] PCP - General Family Medicine 05/05/22 documented as of this encounter
--- OUTSIDE RECORDS SUMMARY | 2025-02-20 10:31 | XMS_ITS | Clinical Summary ---
Author Organization [facility] Address [address] [place] [address] Care Team Providers Care Clinical Trial Educator Name Role Phone Peyton Alan DO Primary Care Provider [phone] Allergies No known active allergies Active Problems [...] age to complete this topic Insurance MEDICARE [facility] OTHER GENERIC COMMERCIAL Care Teams Clinical Trial Educator Relationship Specialty Start Date End Date Peyton Alan DO [address] [place], [place] [id number] PCP - General 05/13/20
--- OUTSIDE RECORDS SUMMARY | 2025-02-20 10:31 | XMS_ITS | Encounter Summary ---
Author Organization [facility] Address [address] [place] [address] Care Team Providers Care Soaker Soda Worker Name Role Phone Raphael Mendoza MD Primary Care Provider [phone] Encounter Details Date Type Department Care Team [...] or training? Not on file Preferred Language Danish 05/06/2022 Sex and Gender Information Value Date Recorded Sex Assigned at Not on file Legal Sex Male 8:52 AM EDT Gender Identity Not on file Sexual Orientation Not on file documented as of this encounter Functional Status * Calculated C-SSRS Risk Score (Lifetime/Recent) Answer Date of Assessment Author No Risk Indicated 01/30/2025 10:52 AM EDT Musa Correa RN * [place] Suicide Severity Rating Scale (Screener/Recent Self-Report) Question [...] documented as of this encounter Care Teams Soaker Soda Worker Relationship Specialty Start Date End Date Raphael Mendoza MD [address] [place] [address] PCP - General Family Medicine 05/05/22 documented as of this encounter
--- OUTSIDE RECORDS SUMMARY | 2025-02-20 10:31 | XMS_ITS | Clinical Summary ---
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 90 tablet 1 2 Active atorvastatin (LIPITOR) 40 MG tabletIndicatio ns:Coronary artery disease involving ekwok coronary artery of ekwok heart without angina pectoris Take 1 tablet [...] Department Care Team Description 01/31/2025 Readmission Management [facility] [address] [place] [id number] Camille Valente RN 01/30/2025 10:43 AM EDT - 01/31/2025 10:55 AM EDT Hospital Encounter [address] [place] [id number] Pedrito Roberts MD West, Christopher R, MD [...] or training? Not on file Preferred Language Pashto 05/06/2022 Sex and Gender Information Value Date [...] 02/02/2021, 08/04 Medical Devices Implanted Type Area Adjustment Examiner Device Identifier Shelf Expiration Date Model / Serial / Lot Hemost Abs Surgifoam [id number] 8x12 10mm - [id number] Implanted:Qty : 1 on 05/07/2022 by Conner Fry MD at [facility] Implant N/A: Spine Cervical [employer] J 11/17/2025 [id number] / / [id number] Kt Seal Hemos Abs Floseal Matrx Fast/Prep 10ml - [id number] Implanted:Qty : 1 on 05/07/2022 by Conner Fry MD at [facility] Implant N/A: Spine Cervical Apiphany 02/28/2024 [id number] / / [id number] Bone Lordotic Asr 1r02x82 Fzd - [id number] Implanted:Qty : 1 on 05/07/2022 by Conner Fry MD at [facility] Implant N/A: Spine Cervical [employer] 10/05/2024 [id number] / / [id number] Plt Acp Zevo 1lvl 17mm Ns - [id number] Implanted:Qty : 1 on 05/07/2022 by Conner Fry MD at [facility] Implant N/A: Spine Cervical [employer] [id number] / / NA Scrw St Zevo 2thrd S/Tap 3.5x13mm - [id number] Implanted:Qty : 4 on 05/07/2022 by Conner Fry MD at [facility] Implant N/A: Spine Cervical [employer] [id number] / / NA Knee Procedures Procedure Name [...] - TELEMETRY 01/30/2025 1 0:55 AM EDT OR CRITICAL CARE ILL/INJURED PATIENT INIT 30-74 MIN Routine 01/30/2025 10:43 AM EDT from Last 3 Months Results * (ABNORMAL) Basic Metabolic Panel (01/31/2025 4:51 AM EDT) Glucose 144(H) 65 - 99 mg/dL 01/31/2025 5:46 AM EDT [facility] BUN 40.8(H) 8.0 - 23.0 mg/dL 01/31/2025 5:46 AM EDT [facility] Creatinine 1.47(H) 0.76 - 1.27 mg/dL 01/31/2025 5:46 AM EDT [facility] Sodium 142 136 - 145 mmol/L 01/31/2025 5:46 AM EDT [facility] Potassium 4.7 3.5 - 5.2 mmol/L 01/31/2025 5:46 AM EDT [facility] Chloride 110(H) 98 - 107 mmol/L 01/31/2025 5:46 AM EDT [facility] CO2 22.0 22.0 - 29.0 mmol/L 01/31/2025 5:46 AM EDT [facility] Calcium 8.1(L) 8.6 - 10.5 mg/dL 01/31/2025 5:46 AM EDT [facility] BUN/Creatinine Ratio 27.8(H) 7.0 - 25.0 01/31/2025 5:46 AM EDT [facility] Anion Gap 10.0 5.0 - 15.0 mmol/L 01/31/2025 5:46 AM EDT [facility] eGFR 47.9(L) >60.0 mL/min/1.7 3 01/31/2025 5:46 AM EDT [facility] Blood Venipuncture / Unknown 01/31/2025 4:51 AM EDT 01/31/2025 5:11 AM EDT [facility] LABORATORY - 01/31/2025 5:46 AM EDT [...] BLOOD ORDERABLES Final Result [facility]ORY
[address] [place] [address], * (ABNORMAL) CBC (No Diff) (01/31/2025 4:50 AM EDT) WBC 10.92(H) 3.40 - 10.80 10*3/mm3 01/31/2025 5:47 AM EDT [facility] RBC 4.44 4.14 - 5.80 10*6/mm3 01/31/2025 5:47 AM EDT [facility] Hemoglobin 9.8(L) 13.0 - 17.7 g/dL 01/31/2025 5:47 AM EDT [facility] Hematocrit 33.7(L) 37.5 - 51.0 % 01/31/2025 5:47 AM EDT [facility] MCV 75.9(L) 79.0 - 97.0 fL 01/31/2025 5:47 AM EDT [facility] MCH 22.1(L) 26.6 - 33.0 pg 01/31/2025 5:47 AM EDT [facility] MCHC 29.1(L) 31.5 - 35.7 g/dL 01/31/2025 5:47 AM EDT [facility] RDW 24.1(H) 12.3 - 15.4 % 01/31/2025 5:47 AM EDT [facility] RDW-SD 64.9(H) 37.0 - 54.0 fl 01/31/2025 5:47 AM EDT [facility] MPV 11.1 6.0 - 12.0 fL 01/31/2025 5:47 AM EDT [facility] Platelets 200 140 - 450 10*3/mm3 01/31/2025 5:47 AM EDT [facility] Blood Venipuncture / Unknown 01/31/2025 4:50 AM EDT 01/31/2025 5:16 AM EDT us Chandrakant Jamison MD LAB BLOOD ORDERABLES Final Result [facility]ORY
[address] [place] [address], * Urinalysis, Microscopic Only - Urine, Clean Catch (01/31/2025 12:33 AM EDT) RBC, UA 0-2 None Seen, 0-2 /HPF 01/31/2025 1:19 AM EDT [facility] WBC, UA 0-2 None Seen, 0-2 /HPF 01/31/2025 1:19 AM EDT [facility] Comment:Urine culture not in dicated. Bacteria, UA None Seen None Seen /HPF 01/31/2025 1:19 AM EDT [facility] Squamous Epithelial Cells, UA 0-2 None Seen, 0-2 /HPF 01/31/2025 1:19 AM [facility] Hyaline Casts, UA 0-2 None Seen /LPF 01/31/2025 1:19 AM EDT [facility] Methodology Automated Microscopy 01/31/2025 1:19 AM EDT [facility] Urine Urine specimen obtained by clean catch procedure / Unknown Collection / Unknown 01/31/2025 12:33 AM EDT 01/31/2025 12:47 AM EDT us Chandrakant Jamison MD URINE ORDERABLES Final Res ult [facility]ORY
[address] [place] [address], * (ABNORMAL) Urinalysis With Culture If Indicated - Urine, Clean Catch (01/31/2025 12:33 AM EDT) Color, UA Yellow Yellow, Straw 01/31/2025 1:15 AM EDT [facility] Appearance, UA Clear Clear 01/31/2025 1:15 AM EDT [facility] pH, UA 5.5 5.0 - 8.0 01/31/2025 1:15 AM EDT [facility] Specific [place], UA 1.016 1.005 - 1.030 01/31/2025 1:15 AM EDT [facility] Glucose, UA Negative Negative 01/31/2025 1:15 AM EDT [facility] Ketones, UA Negative Negative 01/31/2025 1:15 AM EDT [facility] Bilirubin, UA Negative Negative 01/31/2025 1:15 AM EDT [facility] Blood, UA Negative Negative 01/31/2025 1:15 AM EDT [facility] Protein, UA 30 mg/dL (1+)(A) Negative 01/31/2025 1:15 AM EDT [facility] Leuk Esterase, UA Negative Negative 01/31/2025 1:15 AM EDT [facility] Nitrite, UA Negative Negative 01/31/2025 1:15 AM EDT [facility] Urobilinogen, UA 0.2 E.U./dL 0.2 - 1.0 E.U./dL 01/31/2025 1:15 AM EDT [facility] Urine Urine specimen obtained by clean catch procedure / Unknown Collection / Unknown 01/31/2025 12:33 AM EDT 01/31/2025 12:47 AM EDT Narrative [facility] - 01/31/2025 1:15 AM EDT In absence of clinical symptoms, the presence of pyuria, bacteria, and/or nitrites on the urinalysis result does not correlate with infection. Chandrakant Jamison MD URINE ORDERABLES Final Res ult Performing Organization Address City/[facility]/ZIP Co de Phone Number [facility] LAB[facility]ORY
[address] [place] [address], * Telemetry Scan (01/30/2025 6:57 PM EDT) Only the most recent of2 resultswithin the time period is included. [facility] ECG ORDERABLES Final Result * STAT Lactic Acid, Reflex (01/30/2025 2:58 PM EDT) Lactate 1.6 0.5 - 2.0 mmol/L 01/30/2025 3:37 PM EDT [facility] Comment:Falsely depressed re sults may occur on samples drawn from patients receiving N-Acetylcysteine (NAC) or Metamizole. Blood Venipuncture / Unknown 01/30/2025 2:58 PM EDT 01/30/2025 3:03 PM EDT Chandrakant Jamison MD LAB BLOOD ORDERABLES Final Result Performing Organization Address City/[facility]/ZIP Co de Phone Number [facility]ORY
[address] [place] [address], * ECG 12 Lead QT Measurement (01/30/2025 [...] T 1Hr (01/30/2025 12:20 PM EDT) Pathologist [facility] HS Troponin T 93(HH) <22 ng/L 01/30/2025 12:52 PM EDT [facility] Troponin T Numeric Delta 10 ng/L 01/30/2025 12:52 PM EDT [facility] Troponin T % Delta 12 Abnormal if >/= 20% 01/30/2025 12:52 PM EDT [facility] Blood Venipuncture / Unknown 01/30/2025 12:20 PM EDT 01/30/2025 12:25 PM EDT Narrative [facility] - 01/30/2025 12:52 PM EDT High [...] MD LAB BLOOD ORDERABLES Nicole l Result [facility]
[address] [place] [address], * Magnesium (01/30/2025 12:20 PM EDT) [facility] Magnesium 1.7 1.6 - 2.4 mg/dL 01/30/2025 2:17 PM EDT [facility] Blood Venipuncture / Unknown 01/30/2025 12:20 PM EDT 01/30/2025 12:25 PM EDT Chandrakant Jamison MD LAB BLOOD ORDERABLES Final Result Performing Organization Address City/[facility]/ZIP Co de Phone Number [facility]ORY
[address] [place] [address], [place] [phone] * XR Chest 1 View (01/30/2025 11:22 AM EDT) Anatomical Region Laterality Modality Body N/A Radiographic Lynette ging 01/30/2025 11:2 6 AM EDT Impressions 01/30/2025 11:27 AM EDT Impression: 1.Enlarged cardiac silhouette. 2.Nonspecific generalized interstitial prominence likely chronic. Electronically Signed: Macho Garcia MD 01/30/2025 11:27 AM EDT Workstation ID: [id number] Narrative 01/30/2025 11:27 AM EDT XR CHEST [...] MD 01/30/2025 11:27 AM EDT Workstation ID: [id number] Pedrito Roberts MD IMG DIAGNOSTIC IMAGING OR DERABLES Final Result * Lane Top (01/30/2025 11:00 AM EDT) Extra Tube Hold for add-ons. 01/30/2025 11:15 AM EDT [facility] Comment:Auto resulted. Blood Venipuncture / Unknown 01/30/2025 11:00 AM EDT 01/30/2025 11:05 AM EDT Pedrito Roberts MD LAB BLOOD ORDER ONLY Nicole l Result Performing Organization Address [facility] Co de Phone Number [facility]ATORY
[address] [place] [address], [place] [phone] * Gold Top - SST (01/30/2025 11:00 AM EDT) Extra Tube Hold for add-ons. 01/30/2025 11:15 AM EDT [facility] Comment:Auto resulted. Blood Venipuncture / Unknown 01/30/2025 11:00 AM EDT 01/30/2025 11:05 AM EDT Pedrito Roberts MD LAB BLOOD ORDER ONLY Nicole l Result Performing Organization Address [facility] de Phone Number [facility] LAB[facility]ORY
[address] [place] [address], [place] [phone] * Green Top (Gel) (01/30/2025 11:00 AM EDT) Extra Tube Hold for add-ons. 01/30/2025 11:15 AM EDT [facility] Comment:Auto resulted. Blood Venipuncture / Unknown 01/30/2025 11:00 AM EDT 01/30/2025 11:05 AM EDT Pedrito Roberts MD LAB BLOOD ORDER ONLY Nicole l Result Performing Organization Address [facility] Co de Phone Number [facility]ORY
[address] [place] [address], [place] [phone] * Scan Slide (01/30/2025 11:00 AM EDT) Anisocytosis Mod/2+ None Seen 01/30/2025 11:35 AM EDT [facility] Ovalocytes Slight/1+ None Seen 01/30/2025 11:35 AM EDT [facility] WBC Morphology Normal Normal 01/30/2025 11:35 AM EDT [facility] Platelet Morphology Normal Normal 01/30/2025 11:35 AM T [facility] Blood Venipuncture / Unknown 01/30/2025 11:00 AM EDT 01/30/2025 11:05 AM EDT Pedrito Roberts MD LAB BLOOD ORDERABLES Nicole l Result [facility]
[address] [place] [address], * (ABNORMAL) CBC Auto Differential (01/30/2025 11:00 AM EDT) WBC 10.08 3.40 - 10.80 10*3/mm3 01/30/2025 11:35 AM EDT [facility] RBC 5.21 4.14 - 5.80 10*6/mm3 01/30/2025 11:35 AM EDT [facility] Hemoglobin 11.8(L) 13.0 - 17.7 g/dL 01/30/2025 11:35 AM EDT [facility] Hematocrit 40.7 37.5 - 51.0 % 01/30/2025 11:35 AM EDT [facility] MCV 78.1(L) 79.0 - 97.0 fL 01/30/2025 11:35 AM EDT [facility] MCH 22.6(L) 26.6 - 33.0 pg 01/30/2025 11:35 AM EDT [facility] MCHC 29.0(L) 31.5 - 35.7 g/dL 01/30/2025 11:35 AM EDT [facility] RDW 24.6(H) 12.3 - 15.4 % 01/30/2025 11:35 AM EDT [facility] RDW-SD 68.2(H) 37.0 - 54.0 fl 01/30/2025 11:35 AM [facility] MPV 10.7 6.0 - 12.0 fL 01/30/2025 11:35 AM [facility] Platelets 220 140 - 450 10*3/mm3 01/30/2025 11:35 AM [facility] Neutrophil % 72.7 42.7 - 76.0 % 01/30/2025 11:35 AM [facility] Lymphocyte % 17.2(L) 19.6 - 45.3 % 01/30/2025 11:35 AM [facility] Monocyte % 2.9(L) 5.0 - 12.0 % 01/30/2025 11:35 AM [facility] Eosinophil % 2.3 0.3 - 6.2 % 01/30/2025 11:35 AM [facility] Basophil % 0.6 0.0 - 1.5 % 01/30/2025 11:35 AM [facility] Immature Grans % 4.3(H) 0.0 - 0.5 % 01/30/2025 11:35 AM [facility] Neutrophils, Absolute 7.34(H) 1.70 - 7.00 10*3/mm3 01/30/2025 11:35 AM [facility] Lymphocytes, Absolute 1.73 0.70 - 3.10 10*3/mm3 01/30/2025 11:35 AM [facility] Monocytes, Absolute 0.29 0.10 - 0.90 10*3/mm3 01/30/2025 11:35 AM [facility] Eosinophils, Absolute 0.23 0.00 - 0.40 10*3/mm3 01/30/2025 11:35 AM [facility] Basophils, Absolute 0.06 0.00 - 0.20 10*3/mm3 01/30/2025 11:35 AM [facility] Immature Grans, Absolute 0.43(H) 0.00 - 0.05 10*3/mm3 01/30/2025 11:35 AM EDT [facility] nRBC 0.7(H) 0.0 - 0.2 /100 WBC 01/30/2025 11:35 AM EDT [facility] Blood Venipuncture / Unknown 01/30/2025 11:00 AM EDT 01/30/2025 11:05 AM EDT Narrative [facility] - 01/30/2025 11:35 AM EDT Appended report. These results have been appended to a previously verified report. Pedrito Roberts MD LAB BLOOD ORDERABLES Nicole l Result [facility]
[address] [place] [address], * Lavender Top (01/30/2025 11:00 AM EDT) Extra Tube hold for add-on 01/30/2025 11:15 AM EDT [facility] Comment:Auto resulted Blood Venipuncture / Unknown 01/30/2025 11:00 AM EDT 01/30/2025 11:05 AM EDT Pedrito Roberts MD LAB BLOOD ORDER ONLY Nicole l Result [facility]
[address] [place] [address], [place] [phone] * Light Blue Top (01/30/2025 11:00 AM EDT) Extra Tube Hold for add-ons. 01/30/2025 11:15 AM EDT [facility] Comment:Auto resulted Blood Venipuncture / Unknown 01/30/2025 11:00 AM EDT 01/30/2025 11:05 AM EDT Pedrito Roberts MD LAB BLOOD ORDER ONLY Nicole l Result Performing Organization Address [facility] Co de Phone Number [facility]
[address] [place] [address], * (ABNORMAL) High Sensitivity Troponin T (01/30/2025 11:00 AM EDT) HS Troponin T 83(HH) <22 ng/L 01/30/2025 11:39 AM EDT [facility] Blood Venipuncture / Unknown 01/30/2025 11:00 AM EDT 01/30/2025 11:05 AM EDT [facility] LABORATORY - 01/30/2025 11:39 AM EDT High [...] ORDERABLES Nicole l Result Performing Organization Address [facility] Co de Phone Number [facility]
[address] [place] [address], * (ABNORMAL) BNP (01/30/2025 11:00 AM EDT) proBNP 5,435.0(H) 0.0 - 1,800.0 pg/mL 01/30/2025 11:38 AM EDT [facility] Blood Venipuncture / Unknown 01/30/2025 11:00 AM EDT 01/30/2025 11:05 AM EDT [facility] LABORATORY - 01/30/2025 11:38 AM EDT This [...] ORDERABLES Nicole l Result Performing Organization Address [facility] Co de Phone Number [facility]
[address] [place] [address], * (ABNORMAL) Lipase (01/30/2025 11:00 AM EDT) Lipase 104(H) 13 - 60 U/L 01/30/2025 11:38 AM EDT [facility] Blood Venipuncture / Unknown 01/30/2025 11:00 AM EDT 01/30/2025 11:05 AM EDT Pedrito Roberts MD LAB BLOOD ORDERABLES Nicole l Result Performing Organization Address [facility] de Phone Number [facility]
[address] [place] [address], * (ABNORMAL) Lactic Acid, Plasma (01/30/2025 11:00 AM EDT) Lactate 3.6(HH) 0.5 - 2.0 mmol/L 01/30/2025 1:43 PM EDT [facility] Comment:Falsely depressed re sults may occur on samples drawn from patients receiving N-Acetylcysteine (NAC) or Metamizole. Blood Venipuncture / Unknown 01/30/2025 11:00 AM EDT 01/30/2025 11:05 AM EDT Chandrakant Jamison MD LAB BLOOD ORDERABLES Final Result [facility]
[address] [place] [address], * (ABNORMAL) Comprehensive Metabolic Panel (01/30/2025 11:00 AM EDT) Glucose 143(H) 65 - 99 mg/dL 01/30/2025 11:39 AM EDT [facility] BUN 38.9(H) 8.0 - 23.0 mg/dL 01/30/2025 11:39 AM EDT [facility] Creatinine 1.65(H) 0.76 - 1.27 mg/dL 01/30/2025 11:39 AM EDT [facility] Sodium 140 136 - 145 mmol/L 01/30/2025 11:39 AM EDT [facility] Potassium 4.2 3.5 - 5.2 mmol/L 01/30/2025 11:39 AM EDT [facility] Comment:Specimen hemolyzed. Result may be falsely elevated. Chloride 108(H) 98 - 107 mmol/L 01/30/2025 11:39 AM EDT [facility] CO2 16.2(L) 22.0 - 29.0 mmol/L 01/30/2025 11:39 AM EDT [facility] Calcium 8.2(L) 8.6 - 10.5 mg/dL 01/30/2025 11:39 AM EDT [facility] Total Protein 6.3 6.0 - 8.5 g/dL 01/30/2025 11:39 AM EDT [facility] Albumin 3.2(L) 3.5 - 5.2 g/dL 01/30/2025 11:39 AM EDT [facility] ALT (SGPT) 8 1 - 41 U/L 01/30/2025 11:39 AM EDT [facility] AST (SGOT) 27 1 - 40 U/L 01/30/2025 11:39 AM EDT [facility] Comment:Specimen hemolyzed. Result may be falsely elevated. Alkaline Phosphatase 133(H) 39 - 117 U/L 01/30/2025 11:39 AM EDT [facility] Total Bilirubin 0.2 0.0 - 1.2 mg/dL 01/30/2025 11:39 AM EDT [facility] Globulin 3.1 gm/dL 01/30/2025 11:39 AM EDT [facility] Comment:Calculated Result A/G Ratio 1.0 g/dL 01/30/2025 11:39 AM EDT [facility] BUN/Creatinine Ratio 23.6 7.0 - 25.0 01/30/2025 11:39 AM EDT [facility] Anion Gap 15.8(H) 5.0 - 15.0 mmol/L 01/30/2025 11:39 AM EDT [facility] eGFR 41.7(L) >60.0 mL/min/1.7 3 01/30/2025 11:39 AM EDT [facility] Blood Venipuncture / Unknown 01/30/2025 11:00 AM EDT 01/30/2025 11:05 AM EDT Narrative [facility] - 01/30/2025 11:39 AM EDT GFR [...] us Pedrito Roberts MD LAB BLOOD ORDERABLES Niocle crowe Result [facility]
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 Member ID:[id number] Relation to Subscriber:Self Name:José Basurto Jr. 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
--- OUTSIDE RECORDS SUMMARY | 2025-02-20 10:31 | XMS_ITS | Encounter Summary ---
[facility] Organization [facility] Address [address] [place] [address] Care Team Providers Care Numerical Analysis Group Manager Name Role Phone Raphael Mendoza MD Primary Care Provider [phone] Encounter Details Date Type Department Care Team (Late st Contact Info) Description 01/31/2025 Readmission Management [facility] [address] [place] [id number] Camille Valente RN Social History Tobacco [...] or training? Not on file Preferred Language Afghan 05/06/2022 Sex and Gender Information Value Date Recorded Sex Assigned at Not on file Legal Sex Male 8:52 AM EDT Gender Identity Not on file Sexual Orientation Not on file documented as of this encounter Miscellaneous Notes * Outreach Note - Camille Valente RN - 01/31/2025 7:34 PM EDT Prep Survey Flowsheet Row Responses [facility] patient discharged from? [place] Is LACE score less than 10 ? [...] documented as of this encounter Care Teams Numerical Analysis Group Manager Relationship Specialty Start Date End Date Raphael Mendoza MD [address] [address] PCP - General Family Medicine 05/05/22 documented as of this encounter
[2025-02-20 12:13] LABS: Albumin Level 3.6 g/dl (3.5-5.0); Chloride 107 mmol/L (98-107); Sodium 136 mmol/L (136-145)
[2025-02-20 12:14] LABS: Potassium 4.5 mmoL/L (3.5-5.1)
[2025-02-20 12:16] LABS: Alanine Aminotransferase 8 U/L (12-78); Alkaline Phosphatase 137 U/L (38-126); Anion Gap 14.5 mEq/L (5-15); Aspartate Amino Transferase 18 U/L (17-59); Bilirubin,Direct 0.1 mg/dl (0.0-0.4); Bilirubin,Indirect 0.3 mg/dL (0.0-0.9); Bilirubin,Total 0.4 mg/dl (0.2-1.3); Bilirubin,Unconjugated 0.2 mg/dL (0.0-1.1); Blood Urea Nitrogen 56 mg/dl (9-20); Calcium 8.7 mg/dl (8.4-10.2); Carbon Dioxide 19 mmol/L (22.0-30.0); Cholesterol 130 mg/dl (140-200); Creatinine,Serum 1.50 mg/dl (0.66-1.25); Estimated Glomerular Filt Rate 45 ml/min (>60); GFR (African American) 54 ML/MIN (>60); Glucose 88 mg/dl (74-100); Total Protein,Serum 6.7 g/dl (6.3-8.2); Triglycerides 63 mg/dl (30-150)
[2025-02-20 12:17] LABS: HDL Cholesterol 43 mg/dl (40-60); Magnesium 1.9 mg/dl (1.6-2.3)
[2025-02-20 12:34] LABS: Free T4 (Free Thyroxine) 0.74 ng/dl (0.78-2.19)
[2025-02-20 12:48] LABS: Thyroid Stimulating Hormone 0.69 uIU/mL (0.465-4.68)
[2025-02-20 14:41] LABS: Hematocrit 35.9 % (42.0-52.0); Hemoglobin 10.6 g/dL (14.1-18.0); Immature Granulocytes % 3.9 %; Mean Corpuscular HGB Conc 29.5 g/dL (31.8-35.4); Mean Corpuscular Hemoglobin 22.2 pg (27.0-31.2); Mean Corpuscular Volume 75.1 fl (80-94); Nucleated Red Blood Cells % 0.3 %; Platelet Count 219 K/mm3 (142-424); Red Blood Count 4.78 M/mm3 (4.60-6.20); Red Cell Distribution Width-SD 66.0 fL; White Blood Count 11.8 K/mm3 (4.8-10.8)
== END 2025-02-20 23:59 | disposition home or self-care (01) ==
LOC: LAB 10:30
PROVIDERS: PCP Family Medicine; Visit Provider Nurse Practitioner
DX: I25.10 Atherosclerotic heart disease of native coronary artery without angina pectoris (principal); I10 Essential (primary) hypertension; E78.5 Hyperlipidemia, unspecified
CPT/HCPCS: 36415; 80048; 80061; 80076; 83735; 84439; 84443; 85025

== ENCOUNTER 2025-03-01 08:44 | Emergency (ER) | payer MEDICARE, OTHER, SELFPAY ==
--- OUTSIDE RECORDS SUMMARY | 2025-01-30 10:43 | XMS_ITS | Encounter Summary ---
Author Organization [facility] Address [address] [place] [id number] Care Team Providers Care Outside Sales Engineer Name Role Phone Raphael Mendoza MD Primary Care Provider [phone] Reason for Visit * Reason Comments Medication Reaction * Auth/Cert (Routine) Specialty Diagnoses / Procedures Referred By Contac t Referred To Contact Diagnoses Drug reaction Anaphylaxis Referral ID Status Reason Start Date Expiration Date Visits Re quested Visits Authorized [id number] 1 1 Encounter Details Date Type Department Care Team (Late st Contact Info) Description 01/30/2025 10:43 AM EDT - 01/31/2025 10:55 AM EDT Hospital Encounter [address] [place] [id number] Pedrito Hu MD [address]40 [facility] [place] [address] Chandrakant Jamison MD [address] [address] Maritza Contreras DO 1780 [facility] [address] [place] [address] Episode of unresponsiveness (Primary Dx); Acute kidney [...] or training? Not on file Preferred Language Honduran 05/06/2022 Sex and Gender Information Value Date [...] 10:52 AM EDT Musa Correa RN * [place] Suicide Severity Rating Scale (Screener/Recent Self-Report) Question [...] from the original note were not included. [facility] Medicine Services DISCHARGE SUMMARY Patient Name: José aBsurto Jr. : 1945 Date of Admission: 01/30/2025 [...] A-fib, CAD who was sent from outpatient [facility] to [facility] for concern for apparent anaphylactic reaction during IV iron infusion. The patient was treated with IM epi, Solu-Medrol and Benadryl prior toarrival. Patient had recently been treated in [facility] and had received dose of IV iron while admitted to the hospital. PCP had set up patient for outpatient iron infusion in [place] on 01/30. Duringthat infusion he developed chest tightness and then became somnolent, EMS was called. Patient was hypotensive, bradycardic but improved with above treatment. He is back at baseline, blood pressure doing well Probable Anaphylactoid Reaction to IV iron infusion -had 1st iv iron dose ~1 week ago during recent hospitalization at [facility] -was getting outpatient IV iron infusion at [facility] 01/30, developed acute dyspnea &abdominal crampy pain followed by hypotension, bradycardia (hr dropped to 20's) and somnolence... received IM epi, solumedrol 125mg, benadryl and EMS brought to [facility] hospital - Completed prednisone for short course, Pepcid twice daily -IV iron placed on patient allergy list CAD, recent cardiac stent ~6 weeks ago HFrEF (data deficit) Persistent Afib -6 weeks ago s/p cardiac stent ([facility]) & had afib at that time. Was discharged on asa& plavix & eliquis. Holding eliquis (recent gi bleed) -Continue asa & plavix (recent cardiac stent) -no b-juani due to previous hypotension on this medicine and bradycardia -[address] [facility] w/ chf exacerbation. -follows w/ daycare provider in [facility]. Called and talked to his on [...] MD 01/30/2025 11:27 AM EDT Workstation ID: [id number] Results for orders placed during the hospital [...] minutes on this discharge activity which included: kiuk-el-hlzocmbbsliob with the patient, reviewing the data in [...] sent through Care Everywhere. * Clopidogrel Tablets (Honduran) * Anaphylactic Reaction Adult Nfxj-as-Ycbl (Honduran) * Iron Deficiency Anemia Adult Grwi-ev-Wowh (Honduran) documented in this encounter Medications at Time of Discharge aspirin 81 MG EC tabletIndications :Coronary artery disease involving squaxin coronary artery of squaxin heart without angina pectoris Take 1 tablet by mouth Daily. 90 tablet 1 05/20/2022 atorvastatin (LIPITOR) 40 MG tabletIndications :Coronary artery disease involving squaxin coronary artery of squaxin heart without angina pectoris Take 1 tablet [...] from the original note were not included. [facility] Medicine Services HISTORY AND PHYSICAL Patient Name: José Basurto Jr. : 1945 Primary Care Physician: Raphael Mendoza MD Date of admission: 01/30/2025 Subjective Subjective Chief Complaint: anaphylaxis HPI: José Basurto Jr. is a 79 y.o. male w/ hx cad, CHF, recent afib, gastric ulcer/gi bleed, ckd 3, copd. Sent from outpatient infusion center in [facility] to [facility] ED due to apparent anaphylactic reaction during iv iron infusion. Received IM epi, solumedrol 125, benadryl prior to arrival. Patient typically gets care in [facility]. Has remote hx of CABG. [facility], [...] up patient for IV iron infusion in [place] which was today. 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 today, developed acute dyspnea & abdominal crampy pain followed by hypotension, bradycardia (hr dropped to 20's) and somnolence... received IM epi, solumedrol 125mg, benadryl and EMS brought to [facility] hospital -will schedule prednisone 40mg x 2 days starting tomorrow; pepcid bid x 2 days -monitor overnight, nurse to monitor for signs of biphasic reaction (in which case would give IM epi) -iv iron placed on allergy list CAD, recent cardiac stent ~6 weeks ago HFrEF (data deficit) Persistent Afib -6 weeks ago s/p cardiac stent ([facility]) & had afib at that time. Was discharged on asa& plavix & eliquis. Holding eliquis (recent gi bleed) -will continue asa & plavix (recent cardiac stent) -no b-juani due to previous hypotension on this medicine and bradycardia -[address] [facility] w/ chf exacerbation, initiated on entresto, aldactone; continued lasix. Will hold these for now, restart as bp & renal fxn allow -follows w/ daycare provider in [facility] Recent GI bleed, due to gastric [...] Chiu RN - 01/31/2025 9:39 AM EDT [facility] NURSE NAVIGATOR NOTE José [...] via EMS from the infusion center in [facility] secondary to a episode of unresponsiveness. The patient had just receivedan infusion of iron when he lost consciousness. The facility reported agonal respirations. They didperform qzz-nzhqn-ydle ventilation. They also gave him a combination [...] gassy . This is likely relatedto the dnp-mxihc-nkbl ventilation that was performed. 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 Medication List No changes were made to your prescriptions during this visit. Pedrito Hu MD 01/30/25 1833 documented in this encounter Miscellaneous Notes * Case Management/Social Work - Jami Frias RN - 01/31/2025 10:05 AM EDT Continued Stay Note [facility] Patient Name: José Basurto Jr. Today's Date: [...] - TELEMETRY 01/30/2025 1 0:55 AM EDT ID CRITICAL CARE ILL/INJURED PATIENT INIT 30-74 MIN Routine 01/30/2025 10:43 AM EDT documented in this encounter Results * (ABNORMAL) Basic Metabolic Panel (01/31/2025 4:51 AM EDT) Glucose 144(H) 65 - 99 mg/dL 01/31/2025 5:46 AM EDT [facility] BUN 40.8(H) 8.0 - 23.0 mg/dL 01/31/2025 5:46 AM EDT [facility] Creatinine 1.47(H) 0.76 - 1.27 mg/dL 01/31/2025 5:46 AM EDT [facility] Sodium 142 136 - 145 mmol/L 01/31/2025 5:46 AM EDT [facility] Potassium 4.7 3.5 - 5.2 mmol/L 01/31/2025 5:46 AM EDT [facility] Chloride 110(H) 98 - 107 mmol/L 01/31/2025 5:46 AM EDT [facility] CO2 22.0 22.0 - 29.0 mmol/L 01/31/2025 5:46 AM EDT [facility] Calcium 8.1(L) 8.6 - 10.5 mg/dL 01/31/2025 5:46 AM EDT [facility] BUN/Creatinine Ratio 27.8(H) 7.0 - 25.0 01/31/2025 5:46 AM EDT [facility] Anion Gap 10.0 5.0 - 15.0 mmol/L 01/31/2025 5:46 AM EDT [facility] eGFR 47.9(L) >60.0 mL/min/1.7 3 01/31/2025 5:46 AM EDT [facility] Blood Venipuncture / Unknown 01/31/2025 4:51 AM EDT 01/31/2025 5:11 AM EDT [facility] - 01/31/2025 5:46 AM EDT GFR [...] Jamison MD LAB BLOOD ORDERABLES Final Result [facility]
[address] [place] [address], * (ABNORMAL) CBC (No Diff) (01/31/2025 4:50 AM EDT) WBC 10.92(H) 3.40 - 10.80 10*3/mm3 01/31/2025 5:47 AM EDT [facility] RBC 4.44 4.14 - 5.80 10*6/mm3 01/31/2025 5:47 AM EDT [facility] Hemoglobin 9.8(L) 13.0 - 17.7 g/dL 01/31/2025 5:47 AM EDT [facility] Hematocrit 33.7(L) 37.5 - 51.0 % 01/31/2025 5:47 AM EDT [facility] MCV 75.9(L) 79.0 - 97.0 fL 01/31/2025 5:47 AM EDT [facility] MCH 22.1(L) 26.6 - 33.0 pg 01/31/2025 5:47 AM EDT [facility] MCHC 29.1(L) 31.5 - 35.7 g/dL 01/31/2025 5:47 AM EDT [facility] RDW 24.1(H) 12.3 - 15.4 % 01/31/2025 5:47 AM EDT [facility] RDW-SD 64.9(H) 37.0 - 54.0 fl 01/31/2025 5:47 AM EDT [facility] MPV 11.1 6.0 - 12.0 fL 01/31/2025 5:47 AM EDT [facility] Platelets 200 140 - 450 10*3/mm3 01/31/2025 5:47 AM T [facility] Blood Venipuncture / Unknown 01/31/2025 4:50 AM EDT 01/31/2025 5:16 AM EDT Chandrakant Jamison MD LAB BLOOD ORDERABLES Final Result [facility]
[address] [place] [address], * Urinalysis, Microscopic Only - Urine, Clean Catch (01/31/2025 12:33 AM EDT) RBC, UA 0-2 None Seen, 0-2 /HPF 01/31/2025 1:19 AM EDT [facility] WBC, UA 0-2 None Seen, 0-2 /HPF 01/31/2025 1:19 AM EDT [facility] Comment:Urine culture not in dicated. Bacteria, UA None Seen None Seen /HPF 01/31/2025 1:19 AM EDT [facility] Squamous Epithelial Cells, UA 0-2 None Seen, 0-2 /HPF 01/31/2025 1:19 AM EDT [facility] Hyaline Casts, UA 0-2 None Seen /LPF 01/31/2025 1:19 AM EDT [facility] Methodology Automated Microscopy 01/31/2025 1:19 AM EDT [facility] Urine Urine specimen obtained by clean catch procedure / Unknown Collection / Unknown 01/31/2025 12:33 AM EDT 01/31/2025 12:47 AM EDT us Chandrakant Jamison MD URINE ORDERABLES Final Res ult [facility]
[address] [place] [address], * (ABNORMAL) Urinalysis With Culture If Indicated - Urine, Clean Catch (01/31/2025 12:33 AM EDT) Color, UA Yellow Yellow, Straw 01/31/2025 1:15 AM EDT [facility] Appearance, UA Clear Clear 01/31/2025 1:15 AM EDT [facility] pH, UA 5.5 5.0 - 8.0 01/31/2025 1:15 AM EDT [facility] Specific [place], UA 1.016 1.005 - 1.030 01/31/2025 1:15 AM EDT [facility] Glucose, UA Negative Negative 01/31/2025 1:15 AM EDT [facility] Ketones, UA Negative Negative 01/31/2025 1:15 AM EDT [facility] Bilirubin, UA Negative Negative 01/31/2025 1:15 AM EDT [facility] Blood, UA Negative Negative 01/31/2025 1:15 AM EDT [facility] Protein, UA 30 mg/dL (1+)(A) Negative 01/31/2025 1:15 AM EDT [facility] Leuk Esterase, UA Negative Negative 01/31/2025 1:15 AM EDT [facility] Nitrite, UA Negative Negative 01/31/2025 1:15 AM EDT [facility] Urobilinogen, UA 0.2 E.U./dL 0.2 - 1.0 E.U./dL 01/31/2025 1:15 AM EDT [facility] Urine Urine specimen obtained by clean catch procedure / Unknown Collection / Unknown 01/31/2025 12:33 AM EDT 01/31/2025 12:47 AM EDT Narrative [facility] - 01/31/2025 1:15 AM EDT In absence of clinical symptoms, the presence of pyuria, bacteria, and/or nitrites on the urinalysis result does not correlate with infection. Chandrakant Jamison MD URINE ORDERABLES Final Res ult [facility]
[address] [place] [address], * Telemetry Scan (01/30/2025 6:57 PM EDT) [facility] ECG ORDERABLES Final Result * STAT Lactic Acid, Reflex (01/30/2025 2:58 PM EDT) Lactate 1.6 0.5 - 2.0 mmol/L 01/30/2025 3:37 PM EDT [facility] Comment:Falsely depressed re sults may occur on samples drawn from patients receiving N-Acetylcysteine (NAC) or Metamizole. Blood Venipuncture / Unknown 01/30/2025 2:58 PM EDT 01/30/2025 3:03 PM EDT us Chandrakant Jamison MD LAB BLOOD ORDERABLES Final Result [facility]
[address] [place] [address], * ECG 12 Lead QT Measurement (01/30/2025 [...] AM Referred By: EDMD Confirmed By: PEDRITO UH MD Pedrito Hu MD ECG ORDERABLES Final Res ult ECG * Magnesium (01/30/2025 12:20 PM EDT) Pathologist [facility] Magnesium 1.7 1.6 - 2.4 mg/dL 01/30/2025 2:17 PM EDT [facility] Blood Venipuncture / Unknown 01/30/2025 12:20 PM EDT 01/30/2025 12:25 PM EDT Chandrakant Jamison MD LAB BLOOD ORDERABLES Final Result [facility]
[address] [place] [address], * (ABNORMAL) High Sensitivity Troponin T 1Hr (01/30/2025 12:20 PM EDT) Pathologist [facility] HS Troponin T 93(HH) <22 ng/L 01/30/2025 12:52 PM EDT [facility] Troponin T Numeric Delta 10 ng/L 01/30/2025 12:52 PM EDT [facility] Troponin T % Delta 12 Abnormal if >/= 20% 01/30/2025 12:52 PM EDT [facility] Blood Venipuncture / Unknown 01/30/2025 12:20 PM EDT 01/30/2025 12:25 PM EDT Narrative [facility] - 01/30/2025 12:52 PM EDT High [...] MD LAB BLOOD ORDERABLES Nicole l Result [facility]
[address] [place] [id number], * XR Chest 1 View (01/30/2025 11:22 AM EDT) Anatomical Region Laterality Modality Body N/A Radiographic Lynette ging 01/30/2025 11:2 6 AM EDT Impressions 01/30/2025 11:27 AM EDT Impression: 1.Enlarged cardiac silhouette. 2.Nonspecific generalized interstitial prominence likely chronic. Electronically Signed: Macho Garcia MD 01/30/2025 11:27 AM EDT Workstation ID: [id number] Narrative 01/30/2025 11:27 AM EDT XR CHEST [...] MD 01/30/2025 11:27 AM EDT Workstation ID: [id number] Pedrito Hu MD IMG DIAGNOSTIC IMAGING OR DERABLES Final Result * (ABNORMAL) Lactic Acid, Plasma (01/30/2025 11:00 AM EDT) Lactate 3.6(HH) 0.5 - 2.0 mmol/L 01/30/2025 1:43 PM EDT [facility] Comment:Falsely depressed re sults may occur on samples drawn from patients receiving N-Acetylcysteine (NAC) or Metamizole. Blood Venipuncture / Unknown 01/30/2025 11:00 AM EDT 01/30/2025 11:05 AM EDT Chandrakant Jamison MD LAB BLOOD ORDERABLES Final Result Performing Organization Address City/[facility]/ZIP Co de Phone Number [facility]
[address] [place] [address], * Scan Slide (01/30/2025 11:00 AM EDT) Anisocytosis Mod/2+ None Seen 01/30/2025 11:35 AM EDT [facility] Ovalocytes Slight/1+ None Seen 01/30/2025 11:35 AM EDT [facility] WBC Morphology Normal Normal 01/30/2025 11:35 AM EDT [facility] Platelet Morphology Normal Normal 01/30/2025 11:35 AM EDT [facility] Blood Venipuncture / Unknown 01/30/2025 11:00 AM EDT 01/30/2025 11:05 AM EDT Pedrito Hu MD LAB BLOOD ORDERABLES Nicole l Result [facility]
[address] [place] [address], * (ABNORMAL) CBC Auto Differential (01/30/2025 11:00 AM EDT) WBC 10.08 3.40 - 10.80 10*3/mm3 01/30/2025 11:[facility] RBC 5.21 4.14 - 5.80 10*6/mm3 01/30/2025 11:35 AM [facility] Hemoglobin 11.8(L) 13.0 - 17.7 g/dL 01/30/2025 11:35 AM [facility] Hematocrit 40.7 37.5 - 51.0 % 01/30/2025 11:35 AM [facility] MCV 78.1(L) 79.0 - 97.0 fL 01/30/2025 11:35 AM [facility] MCH 22.6(L) 26.6 - 33.0 pg 01/30/2025 11:35 AM [facility] MCHC 29.0(L) 31.5 - 35.7 g/dL 01/30/2025 11:35 AM [facility] RDW 24.6(H) 12.3 - 15.4 % 01/30/2025 11:35 AM [facility] RDW-SD 68.2(H) 37.0 - 54.0 fl 01/30/2025 11:35 AM [facility] MPV 10.7 6.0 - 12.0 fL 01/30/2025 11:35 AM [facility] Platelets 220 140 - 450 10*3/mm3 01/30/2025 11:35 AM [facility] Neutrophil % 72.7 42.7 - 76.0 % 01/30/2025 11:35 AM [facility] Lymphocyte % 17.2(L) 19.6 - 45.3 % 01/30/2025 11:35 AM [facility] Monocyte % 2.9(L) 5.0 - 12.0 % 01/30/2025 11:35 AM [facility] Eosinophil % 2.3 0.3 - 6.2 % 01/30/2025 11:35 AM [facility] Basophil % 0.6 0.0 - 1.5 % 01/30/2025 11:35 AM EDT [facility] Immature Grans % 4.3(H) 0.0 - 0.5 % 01/30/2025 11:35 AM EDT [facility] Neutrophils, Absolute 7.34(H) 1.70 - 7.00 10*3/mm3 01/30/2025 11:35 AM EDT [facility] Lymphocytes, Absolute 1.73 0.70 - 3.10 10*3/mm3 01/30/2025 11:35 AM EDT [facility] Monocytes, Absolute 0.29 0.10 - 0.90 10*3/mm3 01/30/2025 11:35 AM EDT [facility] Eosinophils, Absolute 0.23 0.00 - 0.40 10*3/mm3 01/30/2025 11:35 AM EDT [facility] Basophils, Absolute 0.06 0.00 - 0.20 10*3/mm3 01/30/2025 11:35 AM EDT [facility] Immature Grans, Absolute 0.43(H) 0.00 - 0.05 10*3/mm3 01/30/2025 11:35 AM EDT [facility] nRBC 0.7(H) 0.0 - 0.2 /100 WBC 01/30/2025 11:35 AM EDT [facility] Blood Venipuncture / Unknown 01/30/2025 11:00 AM EDT 01/30/2025 11:05 AM EDT Narrative [facility] - 01/30/2025 11:35 AM EDT Appended report. These results have been appended to a previously verified report. us Pedrito Hu MD LAB BLOOD ORDERABLES Nicole crowe Result [facility]
[address] [place] [address], * Light Blue Top (01/30/2025 11:00 AM EDT) Extra Tube Hold for add-ons. 01/30/2025 11:15 AM EDT [facility] Comment:Auto resulted Blood Venipuncture / Unknown 01/30/2025 11:00 AM EDT 01/30/2025 11:05 AM EDT Pedrito Hu MD LAB BLOOD ORDER ONLY Nicole l Result Performing Organization Address City/[facility]/ZIP Co de Phone Number [facility]
[address] [place] [address], * Lane Top (01/30/2025 11:00 AM EDT) Extra Tube Hold for add-ons. 01/30/2025 11:15 AM EDT [facility] Comment:Auto resulted. Blood Venipuncture / Unknown 01/30/2025 11:00 AM EDT 01/30/2025 11:05 AM EDT Pedrito Hu MD LAB BLOOD ORDER ONLY Nicole l Result Performing Organization Address City/[facility]/ZIP Co de Phone Number [facility]
[address] [place] [address], * Gold Top - SST (01/30/2025 11:00 AM EDT) Extra Tube Hold for add-ons. 01/30/2025 11:15 AM EDT [facility] Comment:Auto resulted. Blood Venipuncture / Unknown 01/30/2025 11:00 AM EDT 01/30/2025 11:05 AM EDT Pedrito Hu MD LAB BLOOD ORDER ONLY Nicole l Result Performing Organization Address City/[facility]/ZIP Co de Phone Number [facility]
[address] [place] [address], * Lavender Top (01/30/2025 11:00 AM EDT) Extra Tube hold for add-on 01/30/2025 11:15 AM EDT [facility] Comment:Auto resulted Blood Venipuncture / Unknown 01/30/2025 11:00 AM EDT 01/30/2025 11:05 AM EDT Pedrito Hu MD LAB BLOOD ORDER ONLY Nicole l Result Performing Organization Address City/[facility]/ZIP Co de Phone Number [facility]
[address] [place] [address], * Green Top (Gel) (01/30/2025 11:00 AM EDT) Extra Tube Hold for add-ons. 01/30/2025 11:15 AM EDT [facility] Comment:Auto resulted. Blood Venipuncture / Unknown 01/30/2025 11:00 AM EDT 01/30/2025 11:05 AM EDT Pedrito Hu MD LAB BLOOD ORDER ONLY Nicole l Result Performing Organization Address [facility] Co de Phone Number [facility]
[address] [place] [address], * (ABNORMAL) BNP (01/30/2025 11:00 AM EDT) proBNP 5,435.0(H) 0.0 - 1,800.0 pg/mL 01/30/2025 11:38 AM EDT [facility] Blood Venipuncture / Unknown 01/30/2025 11:00 AM EDT 01/30/2025 11:05 AM EDT Narrative [facility] - 01/30/2025 11:38 AM EDT This [...] ORDERABLES Nicole l Result Performing Organization Address City/[facility]/ZIP Co de Phone Number [facility]
[address] [place] [address], * (ABNORMAL) Lipase (01/30/2025 11:00 AM EDT) Lipase 104(H) 13 - 60 U/L 01/30/2025 11:38 AM EDT [facility] Blood Venipuncture / Unknown 01/30/2025 11:00 AM EDT 01/30/2025 11:05 AM EDT Pedrito Hu MD LAB BLOOD ORDERABLES Nicole l Result Performing Organization Address [facility] de Phone Number [facility]
[address] [place] [address], * (ABNORMAL) Comprehensive Metabolic Panel (01/30/2025 11:00 AM EDT) Glucose 143(H) 65 - 99 mg/dL 01/30/2025 11:39 AM EDT [facility] BUN 38.9(H) 8.0 - 23.0 mg/dL 01/30/2025 11:39 AM EDT [facility] Creatinine 1.65(H) 0.76 - 1.27 mg/dL 01/30/2025 11:39 AM EDT [facility] Sodium 140 136 - 145 mmol/L 01/30/2025 11:39 AM EDT [facility] Potassium 4.2 3.5 - 5.2 mmol/L 01/30/2025 11:39 AM [facility] Comment:Specimen hemolyzed. Result may be falsely elevated. Chloride 108(H) 98 - 107 mmol/L 01/30/2025 11:39 AM [facility] CO2 16.2(L) 22.0 - 29.0 mmol/L 01/30/2025 11:39 AM [facility] Calcium 8.2(L) 8.6 - 10.5 mg/dL 01/30/2025 11:39 AM [facility] Total Protein 6.3 6.0 - 8.5 g/dL 01/30/2025 11:39 AM [facility] Albumin 3.2(L) 3.5 - 5.2 g/dL 01/30/2025 11:39 AM [facility] ALT (SGPT) 8 1 - 41 U/L 01/30/2025 11:39 AM [facility] AST (SGOT) 27 1 - 40 U/L 01/30/2025 11:39 AM [facility] Comment:Specimen hemolyzed. Result may be falsely elevated. Alkaline Phosphatase 133(H) 39 - 117 U/L 01/30/2025 11:39 AM [facility] Total Bilirubin 0.2 0.0 - 1.2 mg/dL 01/30/2025 11:39 AM [facility] Globulin 3.1 gm/dL 01/30/2025 11:39 AM [facility] Comment:Calculated Result A/G Ratio 1.0 g/dL 01/30/2025 11:39 AM [facility] BUN/Creatinine Ratio 23.6 7.0 - 25.0 01/30/2025 11:39 AM [facility] Anion Gap 15.8(H) 5.0 - 15.0 mmol/L 01/30/2025 11:39 AM [facility] eGFR 41.7(L) >60.0 mL/min/1.7 3 01/30/2025 11:39 AM EDT [facility] Blood Venipuncture / Unknown 01/30/2025 11:00 AM EDT 01/30/2025 11:05 AM EDT [facility] - 01/30/2025 11:39 AM EDT GFR [...] MD LAB BLOOD ORDERABLES Nicole l Result [facility]
[address] [place] [address], * (ABNORMAL) High Sensitivity Troponin T (01/30/2025 11:00 AM EDT) HS Troponin T 83(HH) <22 ng/L 01/30/2025 11:39 AM EDT [facility] Blood Venipuncture / Unknown 01/30/2025 11:00 AM EDT 01/30/2025 11:05 AM EDT Narrative [facility] - 01/30/2025 11:39 AM EDT High [...] MD LAB BLOOD ORDERABLES Nicole l Result [facility]
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 1734 (Given - Provider: Zahar Farah RN) 0855 (Given - Provider: Annette [...] tablet 40 mg 40 mg, Oral, Every [employer], First dose on Tue01/30/25 at 1430, Swallow [...] BPA Driven Protocol Open Order & Select [facility] Electrolyte Replacement Protocol Algorithm to View Details [...] documented as of this encounter Care Teams Outside Sales Engineer Relationship Specialty Start Date End Date Raphael Mendoza MD [address] [facility] [address] [place] [address] PCP - General Family Medicine 05/05/22 documented as of this encounter
[2025-03-01 08:46] VITALS: BP 117/82; PULSE 71; O2SAT 96
[2025-03-01 08:49] VITALS: BP 117/82; PULSE 60; RESP 15; TEMP 36.7; O2SAT 98; BMI 33.7
--- NOTE | 2025-03-01 08:54 | ECG_ITS ---
APPROVED REPORT Exam: Resting ECG HR:56 bpm ECG Measurements Heart Rate 56 AXES QRSd 143 QRS -63 QT 426 T 87 QTc 418 Conclusion A-fib with marked bradycardia Left axis Marked PVCs and supraventricular complexes EKG is difficult to interpret secondary to significant ectopy and bradycardia Electronically signed by : Go Salazar, 03/01/2025 16:28:03
--- NOTE | 2025-03-01 08:54 | PC.NURSE ---
md does not want to call a trauma alert @ this time
[2025-03-01 09:01] VITALS: BP 137/53; PULSE 60; RESP 12; O2SAT 98
--- OUTSIDE RECORDS SUMMARY | 2025-03-01 09:13 | XMS_ITS | Clinical Summary ---
Author Organization [facility] Address [address] [place] [id number] Care Team Providers Care Dope Firer Name Role Phone Peyton Alan DO Primary Care Provider [phone] Allergies No known active allergies Active Problems [...] age to complete this topic Insurance MEDICARE [facility] OTHER GENERIC COMMERCIAL Care Teams Dope Firer Relationship Specialty Start Date End Date Peyton Alan DO [address] [place], [place] [id number] PCP - General 05/13/20
--- OUTSIDE RECORDS SUMMARY | 2025-03-01 09:13 | XMS_ITS | Clinical Summary ---
Author Organization [facility] Address [address] [place] [address] Care Team Providers Care Instrument Tester Name Role Phone Raphael Mendoza MD Primary Care Provider Allergies Active Allergy Reactions Criticality Noted Date [...] MG EC tabletIndicatio ns:Coronary artery disease involving [place] coronary artery of [place] heart without angina pectoris Take 1 tablet by mouth Daily. 90 tablet 1 2 Active atorvastatin (LIPITOR) 40 MG tabletIndicatio ns:Coronary artery disease involving [place] coronary artery of [place] heart without angina pectoris Take 1 tablet [...] Department Care Team Description 01/31/2025 Readmission Management [facility] [address] [place] [id number] Camille Valente RN 01/30/2025 10:43 AM EDT - 01/31/2025 10:55 AM EDT Hospital Encounter [address] [place] [id number] Pedrito Roberts MD West, Christopher R, MD [...] or training? Not on file Preferred Language Slovak 05/06/2022 Sex and Gender Information Value Date [...] 11/05, 10/15/2021, Additional history exists INFLUENZA VACCINE 01/04/2025 02/24/2022, , 02/24/2022, Additional history exists COVID-19 Vaccine (2024-2 6 season) 2025 02/24/2022, 10/15/2021, 05/04/2021, Additional history exists TDAP/TD VACCINES (3 - Td or Tdap) 05/13/2030 020, 04/17/2020 Pneumococcal Vaccine 50+ Completed 02/02/2021, 08/04 Medical Devices Implanted Type Area Landscape Architecture Professor Device Identifier Shelf Expiration Date Model / Serial / Lot Hemost Abs Surgifoam [id number] 8x12 10mm - [id number] Implanted:Qty : 1 on 05/07/2022 by Conner Fry MD at [facility] Implant N/A: Spine Cervical [employer] J [employer] J 11/17/2025 [id number] / / [id number] Kt Seal Hemos Abs Floseal Matrx Fast/Prep 10ml - [id number] Implanted:Qty : 1 on 05/07/2022 by Conner Fry MD at [facility] Implant N/A: Spine Cervical Codoon 02/28/2024 [id number] / / [id number] Bone Lordotic Asr [id number] Fzd - [id number] Implanted:Qty : 1 on 05/07/2022 by Conner Fry MD at [facility] Implant N/A: Spine Cervical [employer] A [employer] 10/05/2024 [id number] / / [id number] Plt Acp Zevo 1lvl 17mm Ns - [id number] Implanted:Qty : 1 on 05/07/2022 by Conner Fry MD at [facility] Implant N/A: Spine Cervical [employer] [id number] / / NA Scrw St Zevo 2thrd S/Tap 3.5x13mm - [id number] Implanted:Qty : 4 on 05/07/2022 by Conner Fry MD at [facility] Implant N/A: Spine Cervical [employer] [id number] / / NA Knee Procedures Procedure Name [...] - 99 mg/dL 01/31/2025 5:46 AM EDT [facility] BUN 40.8(H) 8.0 - 23.0 mg/dL 01/31/2025 5:46 AM EDT [facility] Creatinine 1.47(H) 0.76 - 1.27 mg/dL 01/31/2025 5:46 AM EDT [facility] Sodium 142 136 - 145 mmol/L 01/31/2025 5:46 AM EDT [facility] Potassium 4.7 3.5 - 5.2 mmol/L 01/31/2025 5:46 AM EDT [facility] Chloride 110(H) 98 - 107 mmol/L 01/31/2025 5:46 AM EDT [facility] CO2 22.0 22.0 - 29.0 mmol/L 01/31/2025 5:46 AM EDT [facility] Calcium 8.1(L) 8.6 - 10.5 mg/dL 01/31/2025 5:46 AM EDT [facility] BUN/Creatinine Ratio 27.8(H) 7.0 - 25.0 01/31/2025 5:46 AM EDT [facility] Anion Gap 10.0 5.0 - 15.0 mmol/L 01/31/2025 5:46 AM EDT [facility] eGFR 47.9(L) >60.0 mL/min/1.7 3 01/31/2025 5:46 AM EDT [facility] Blood Venipuncture / Unknown 01/31/2025 4:51 AM EDT 01/31/2025 5:11 AM EDT [facility] - 01/31/2025 5:46 AM EDT GFR [...] ORDERABLES Final Result [facility]
[address] [place] [address], * (ABNORMAL) CBC (No Diff) (01/31/2025 4:50 AM EDT) WBC 10.92(H) 3.40 - 10.80 10*3/mm3 01/31/2025 5:47 AM EDT [facility] RBC 4.44 4.14 - 5.80 10*6/mm3 01/31/2025 5:47 AM EDT [facility] Hemoglobin 9.8(L) 13.0 - 17.7 g/dL 01/31/2025 5:47 AM EDT [facility] Hematocrit 33.7(L) 37.5 - 51.0 % 01/31/2025 5:47 AM EDT [facility] MCV 75.9(L) 79.0 - 97.0 fL 01/31/2025 5:47 AM EDT [facility] MCH 22.1(L) 26.6 - 33.0 pg 01/31/2025 5:47 AM EDT [facility] MCHC 29.1(L) 31.5 - 35.7 g/dL 01/31/2025 5:47 AM EDT [facility] RDW 24.1(H) 12.3 - 15.4 % 01/31/2025 5:47 AM EDT [facility] RDW-SD 64.9(H) 37.0 - 54.0 fl 01/31/2025 5:47 AM EDT [facility] MPV 11.1 6.0 - 12.0 fL 01/31/2025 5:47 AM EDT [facility] Platelets 200 140 - 450 10*3/mm3 01/31/2025 5:47 AM EDT [facility] Blood Venipuncture / Unknown 01/31/2025 4:50 AM EDT 01/31/2025 5:16 AM EDT us Chandrakant Jamison MD LAB BLOOD ORDERABLES Final Result [facility]
[address] [place] [address], * Urinalysis, Microscopic Only - Urine, Clean Catch (01/31/2025 12:33 AM EDT) RBC, UA 0-2 None Seen, 0-2 /HPF 01/31/2025 1:19 AM EDT [facility] WBC, UA 0-2 None Seen, 0-2 /HPF 01/31/2025 1:19 AM EDT [facility] Comment:Urine culture not in dicated. Bacteria, UA None Seen None Seen /HPF 01/31/2025 1:19 AM EDT [facility] Squamous Epithelial Cells, UA 0-2 None Seen, 0-2 /HPF [facility]2025 [facility] Hyaline Casts, UA 0-2 None Seen /LPF 01/31/2025 1:19 AM EDT [facility] Methodology Automated Microscopy 01/31/2025 1:19 AM EDT [facility] Urine Urine specimen obtained by clean catch procedure / Unknown Collection / Unknown 01/31/2025 12:33 AM EDT 01/31/2025 12:47 AM EDT us Chandrakant Jamison MD URINE ORDERABLES Final Res ult [facility]
[address] [place] [address], * (ABNORMAL) Urinalysis With Culture If Indicated - Urine, Clean Catch (01/31/2025 12:33 AM EDT) Color, UA Yellow Yellow, Straw 01/31/2025 1:15 AM EDT [facility] Appearance, UA Clear Clear 01/31/2025 1:15 AM EDT [facility] pH, UA 5.5 5.0 - 8.0 01/31/2025 1:15 AM EDT [facility] Specific [place], UA 1.016 1.005 - 1.030 01/31/2025 1:15 AM EDT [facility] Glucose, UA Negative Negative 01/31/2025 1:15 AM EDT [facility] Ketones, UA Negative Negative 01/31/2025 1:15 AM EDT [facility] Bilirubin, UA Negative Negative 01/31/2025 1:15 AM EDT [facility] Blood, UA Negative Negative 01/31/2025 1:15 AM EDT [facility] Protein, UA 30 mg/dL (1+)(A) Negative 01/31/2025 1:15 AM EDT [facility] Leuk Esterase, UA Negative Negative 01/31/2025 1:15 AM EDT [facility] Nitrite, UA Negative Negative 01/31/2025 1:15 AM EDT [facility] Urobilinogen, UA 0.2 E.U./dL 0.2 - 1.0 E.U./dL 01/31/2025 1:15 AM EDT [facility] Urine Urine specimen obtained by clean catch procedure / Unknown Collection / Unknown 01/31/2025 12:33 AM EDT 01/31/2025 12:47 AM EDT Narrative [facility] - 01/31/2025 1:15 AM EDT In absence of clinical symptoms, the presence of pyuria, bacteria, and/or nitrites on the urinalysis result does not correlate with infection. Chandrakant Jamison MD URINE ORDERABLES Final Res ult Performing Organization Address City/[facility]/ZIP Co de Phone Number [facility]
[address] [place] [address], * Telemetry Scan (01/30/2025 6:57 PM EDT) Only the most recent of2 resultswithin the time period is included. [facility] ECG ORDERABLES Final Result * STAT Lactic Acid, Reflex (01/30/2025 2:58 PM EDT) Lactate 1.6 0.5 - 2.0 mmol/L 01/30/2025 3:37 PM EDT [facility] Comment:Falsely depressed re sults may occur on samples drawn from patients receiving N-Acetylcysteine (NAC) or Metamizole. Blood Venipuncture / Unknown 01/30/2025 2:58 PM EDT 01/30/2025 3:03 PM EDT Chandrakant Jamison MD LAB BLOOD ORDERABLES Final Result Performing Organization Address City/[facility]/ZIP Co de Phone Number [facility]
[address] [place] [address], * ECG 12 Lead QT Measurement (01/30/2025 [...] T 1Hr (01/30/2025 12:20 PM EDT) Pathologist [facility] HS Troponin T 93(HH) <22 ng/L 01/30/2025 12:52 PM EDT [facility] Troponin T Numeric Delta 10 ng/L 01/30/2025 12:52 PM EDT [facility] Troponin T % Delta 12 Abnormal if >/= 20% 01/30/2025 12:52 PM EDT [facility] Blood Venipuncture / Unknown 01/30/2025 12:20 PM EDT 01/30/2025 12:25 PM EDT Narrative [facility] - 01/30/2025 12:52 PM EDT High [...] MD LAB BLOOD ORDERABLES Nicole l Result [facility]
[address] [place] [address], * Magnesium (01/30/2025 12:20 PM EDT) [facility] Magnesium 1.7 1.6 - 2.4 mg/dL 01/30/2025 2:17 PM EDT [facility] Blood Venipuncture / Unknown 01/30/2025 12:20 PM EDT 01/30/2025 12:25 PM EDT Chandrakant Jamison MD LAB BLOOD ORDERABLES Final Result Performing Organization Address City/[facility]/ZIP Co de Phone Number [facility]
[address] [place] [address], [place] [phone] * XR Chest 1 View (01/30/2025 11:22 AM EDT) Anatomical Region Laterality Modality Body N/A Radiographic Lynette ging 01/30/2025 11:2 6 AM EDT Impressions 01/30/2025 11:27 AM EDT Impression: 1.Enlarged cardiac silhouette. 2.Nonspecific generalized interstitial prominence likely chronic. Electronically Signed: Macho Garcia MD 01/30/2025 11:27 AM EDT Workstation ID: [id number] Narrative 01/30/2025 11:27 AM EDT XR CHEST [...] MD 01/30/2025 11:27 AM EDT Workstation ID: [id number] Pedrito Roberts MD IMG DIAGNOSTIC IMAGING OR DERABLES Final Result * Lane Top (01/30/2025 11:00 AM EDT) Extra Tube Hold for add-ons. 01/30/2025 11:15 AM EDT [facility] Comment:Auto resulted. Blood Venipuncture / Unknown 01/30/2025 11:00 AM EDT 01/30/2025 11:05 AM EDT Pedrito Roberts MD LAB BLOOD ORDER ONLY Nicole l Result Performing Organization Address [facility] Co de Phone Number [facility]
[address] [place] [address], [place] [phone] * Gold Top - SST (01/30/2025 11:00 AM EDT) Extra Tube Hold for add-ons. 01/30/2025 11:15 AM EDT [facility] Comment:Auto resulted. Blood Venipuncture / Unknown 01/30/2025 11:00 AM EDT 01/30/2025 11:05 AM EDT Pedrito Roberts MD LAB BLOOD ORDER ONLY Nicole l Result Performing Organization Address [facility] de Phone Number [facility]
[address] [place] [address], [place] [phone] * Green Top (Gel) (01/30/2025 11:00 AM EDT) Extra Tube Hold for add-ons. 01/30/2025 11:15 AM EDT [facility] Comment:Auto resulted. Blood Venipuncture / Unknown 01/30/2025 11:00 AM EDT 01/30/2025 11:05 AM EDT Pedrito Roberts MD LAB BLOOD ORDER ONLY Nicole l Result Performing Organization Address [facility] Co de Phone Number [facility]
[address] [place] [address], [place] [phone] * Scan Slide (01/30/2025 11:00 AM EDT) Anisocytosis Mod/2+ None Seen 01/30/2025 11:35 AM EDT [facility] Ovalocytes Slight/1+ None Seen 01/30/2025 11:35 AM EDT [facility] WBC Morphology Normal Normal 01/30/2025 11:35 AM EDT [facility] Platelet Morphology Normal Normal 01/30/2025 11:35 AM T [facility] Blood Venipuncture / Unknown 01/30/2025 11:00 AM EDT 01/30/2025 11:05 AM EDT Pedrito Roberts MD LAB BLOOD ORDERABLES Nicole l Result [facility]
[address] [place] [address], * (ABNORMAL) CBC Auto Differential (01/30/2025 11:00 AM EDT) WBC 10.08 3.40 - 10.80 10*3/mm3 01/30/2025 11:35 AM EDT [facility] RBC 5.21 4.14 - 5.80 10*6/mm3 01/30/2025 11:35 AM EDT [facility] Hemoglobin 11.8(L) 13.0 - 17.7 g/dL 01/30/2025 11:35 AM EDT [facility] Hematocrit 40.7 37.5 - 51.0 % 01/30/2025 11:35 AM EDT [facility] MCV 78.1(L) 79.0 - 97.0 fL 01/30/2025 11:35 AM EDT [facility] MCH 22.6(L) 26.6 - 33.0 pg 01/30/2025 11:35 AM EDT [facility] MCHC 29.0(L) 31.5 - 35.7 g/dL 01/30/2025 11:35 AM EDT [facility] RDW 24.6(H) 12.3 - 15.4 % 01/30/2025 11:35 AM EDT [facility] RDW-SD 68.2(H) 37.0 - 54.0 fl 01/30/2025 11:35 AM [facility] MPV 10.7 6.0 - 12.0 fL 01/30/2025 11:35 AM [facility] Platelets 220 140 - 450 10*3/mm3 01/30/2025 11:35 AM [facility] Neutrophil % 72.7 42.7 - 76.0 % 01/30/2025 11:35 AM [facility] Lymphocyte % 17.2(L) 19.6 - 45.3 % 01/30/2025 11:35 AM [facility] Monocyte % 2.9(L) 5.0 - 12.0 % 01/30/2025 11:35 AM [facility] Eosinophil % 2.3 0.3 - 6.2 % 01/30/2025 11:35 AM [facility] Basophil % 0.6 0.0 - 1.5 % 01/30/2025 11:35 AM [facility] Immature Grans % 4.3(H) 0.0 - 0.5 % 01/30/2025 11:35 AM [facility] Neutrophils, Absolute 7.34(H) 1.70 - 7.00 10*3/mm3 01/30/2025 11:35 AM [facility] Lymphocytes, Absolute 1.73 0.70 - 3.10 10*3/mm3 01/30/2025 11:35 AM [facility] Monocytes, Absolute 0.29 0.10 - 0.90 10*3/mm3 01/30/2025 11:35 AM [facility] Eosinophils, Absolute 0.23 0.00 - 0.40 10*3/mm3 01/30/2025 11:35 AM [facility] Basophils, Absolute 0.06 0.00 - 0.20 10*3/mm3 01/30/2025 11:35 AM [facility] Immature Grans, Absolute 0.43(H) 0.00 - 0.05 10*3/mm3 01/30/2025 11:35 AM EDT [facility] nRBC 0.7(H) 0.0 - 0.2 /100 WBC 01/30/2025 11:35 AM EDT [facility] Blood Venipuncture / Unknown 01/30/2025 11:00 AM EDT 01/30/2025 11:05 AM EDT Narrative [facility] - 01/30/2025 11:35 AM EDT Appended report. These results have been appended to a previously verified report. Pedrito Roberts MD LAB BLOOD ORDERABLES Nicole l Result [facility]
[address] [place] [address], * Lavender Top (01/30/2025 11:00 AM EDT) Extra Tube hold for add-on 01/30/2025 11:15 AM EDT [facility] Comment:Auto resulted Blood Venipuncture / Unknown 01/30/2025 11:00 AM EDT 01/30/2025 11:05 AM EDT Pedrito Roberts MD LAB BLOOD ORDER ONLY Nicole l Result [facility]
[address] [place] [address], [place] [phone] * Light Blue Top (01/30/2025 11:00 AM EDT) Extra Tube Hold for add-ons. 01/30/2025 11:15 AM EDT [facility] Comment:Auto resulted Blood Venipuncture / Unknown 01/30/2025 11:00 AM EDT 01/30/2025 11:05 AM EDT Pedrito Roberts MD LAB BLOOD ORDER ONLY Nicole l Result Performing Organization Address [facility] Co de Phone Number [facility]
[address] [place] [address], * (ABNORMAL) High Sensitivity Troponin T (01/30/2025 11:00 AM EDT) HS Troponin T 83(HH) <22 ng/L 01/30/2025 11:39 AM EDT [facility] Blood Venipuncture / Unknown 01/30/2025 11:00 AM EDT 01/30/2025 11:05 AM EDT [facility] - 01/30/2025 11:39 AM EDT High [...] ORDERABLES Nicole l Result Performing Organization Address [facility] Co de Phone Number [facility]
[address] [place] [address], * (ABNORMAL) BNP (01/30/2025 11:00 AM EDT) proBNP 5,435.0(H) 0.0 - 1,800.0 pg/mL 01/30/2025 11:38 AM EDT [facility] Blood Venipuncture / Unknown 01/30/2025 11:00 AM EDT 01/30/2025 11:05 AM EDT [facility] - 01/30/2025 11:38 AM EDT This [...] ORDERABLES Nicole l Result Performing Organization Address [facility] Co de Phone Number [facility]
[address] [place] [address], * (ABNORMAL) Lipase (01/30/2025 11:00 AM EDT) Lipase 104(H) 13 - 60 U/L 01/30/2025 11:38 AM EDT [facility] Blood Venipuncture / Unknown 01/30/2025 11:00 AM EDT 01/30/2025 11:05 AM EDT Pedrito Roberts MD LAB BLOOD ORDERABLES Nicole l Result Performing Organization Address [facility] de Phone Number [facility]
[address] [place] [address], * (ABNORMAL) Lactic Acid, Plasma (01/30/2025 11:00 AM EDT) Lactate 3.6(HH) 0.5 - 2.0 mmol/L 01/30/2025 1:43 PM EDT [facility] Comment:Falsely depressed re sults may occur on samples drawn from patients receiving N-Acetylcysteine (NAC) or Metamizole. Blood Venipuncture / Unknown 01/30/2025 11:00 AM EDT 01/30/2025 11:05 AM EDT Chandrakant Jamison MD LAB BLOOD ORDERABLES Final Result [facility]
[address] [place] [address], * (ABNORMAL) Comprehensive Metabolic Panel (01/30/2025 11:00 AM EDT) Glucose 143(H) 65 - 99 mg/dL 01/30/2025 11:39 AM EDT [facility] BUN 38.9(H) 8.0 - 23.0 mg/dL 01/30/2025 11:39 AM EDT [facility] Creatinine 1.65(H) 0.76 - 1.27 mg/dL 01/30/2025 11:39 AM EDT [facility] Sodium 140 136 - 145 mmol/L 01/30/2025 11:39 AM EDT [facility] Potassium 4.2 3.5 - 5.2 mmol/L 01/30/2025 11:39 AM EDT [facility] Comment:Specimen hemolyzed. Result may be falsely elevated. Chloride 108(H) 98 - 107 mmol/L 01/30/2025 11:39 AM EDT [facility] CO2 16.2(L) 22.0 - 29.0 mmol/L 01/30/2025 11:39 AM EDT [facility] Calcium 8.2(L) 8.6 - 10.5 mg/dL 01/30/2025 11:39 AM EDT [facility] Total Protein 6.3 6.0 - 8.5 g/dL 01/30/2025 11:39 AM EDT [facility] Albumin 3.2(L) 3.5 - 5.2 g/dL 01/30/2025 11:39 AM EDT [facility] ALT (SGPT) 8 1 - 41 U/L 01/30/2025 11:39 AM EDT [facility] AST (SGOT) 27 1 - 40 U/L 01/30/2025 11:39 AM EDT [facility] Comment:Specimen hemolyzed. Result may be falsely elevated. Alkaline Phosphatase 133(H) 39 - 117 U/L 01/30/2025 11:39 AM EDT [facility] Total Bilirubin 0.2 0.0 - 1.2 mg/dL 01/30/2025 11:39 AM EDT [facility] Globulin 3.1 gm/dL 01/30/2025 11:39 AM EDT [facility] Comment:Calculated Result A/G Ratio 1.0 g/dL 01/30/2025 11:39 AM EDT [facility] BUN/Creatinine Ratio 23.6 7.0 - 25.0 01/30/2025 11:39 AM EDT [facility] Anion Gap 15.8(H) 5.0 - 15.0 mmol/L 01/30/2025 11:39 AM EDT [facility] eGFR 41.7(L) >60.0 mL/min/1.7 3 01/30/2025 11:39 AM EDT [facility] Blood Venipuncture / Unknown 01/30/2025 11:00 AM EDT 01/30/2025 11:05 AM EDT Narrative [facility] - 01/30/2025 11:39 AM EDT GFR [...] Nicole crowe Result [facility]
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 Member ID:[id number] Relation to Subscriber:Self Name:José Basurto Jr. Subscriber ID:[id number] Payer ID:[id number] Group ID:Not on file Type:Not on file Address: [facility] [id number] COMMERCIAL Advance Directives Documents on File Type Date Recorded Patient Traffic And Transport Planner Expl anation POWER OF COMMUNITY HEALTH EDUCATION COORDINATOR - SCAN 03/26/2022 9:56 AM POA, [facility], [...] pulse or is breathing): Full Care Teams Instrument Tester Relationship Specialty Start Date End Date Raphael Mendoza MD [address] [place] [address] PCP - General Family Medicine 05/05/22
--- OUTSIDE RECORDS SUMMARY | 2025-03-01 09:13 | XMS_ITS | Encounter Summary ---
[facility] Organization [facility] Address [address] [place] [address] Care Team Providers Care Senior Finance Manager Name Role Phone Raphael Mendoza MD Primary Care Provider [phone] Encounter Details Date Type Department Care Team (Late st Contact Info) Description 01/31/2025 Readmission Management [facility] [address] [place] [phone] Camille Valente RN Social History Tobacco [...] or training? Not on file Preferred Language German 05/06/2022 Sex and Gender Information Value Date Recorded Sex Assigned at Not on file Legal Sex Male 8:52 AM EDT Gender Identity Not on file Sexual Orientation Not on file documented as of this encounter Miscellaneous Notes * Outreach Note - Camille Valente RN - 01/31/2025 7:34 PM EDT Prep Survey Flowsheet Row Responses [facility] patient discharged from? [place] Is LACE score less than 10 ? [...] documented as of this encounter Care Teams Senior Finance Manager Relationship Specialty Start Date End Date Raphael Mendoza MD [address] [address] PCP - General Family Medicine 05/05/22 documented as of this encounter
--- OUTSIDE RECORDS SUMMARY | 2025-03-01 09:13 | XMS_ITS | Encounter Summary ---
Author Organization [facility] Address [address] [place] [address] Care Team Providers Care Publishing Agent Name Role Phone Raphael Mendoza MD Primary Care Provider [phone] Encounter Details Date Type Department Care Team [...] or training? Not on file Preferred Language Lebanese 05/06/2022 Sex and Gender Information Value Date Recorded Sex Assigned at Not on file Legal Sex Male 8:52 AM EDT Gender Identity Not on file Sexual Orientation Not on file documented as of this encounter Functional Status * Calculated C-SSRS Risk Score (Lifetime/Recent) Answer Date of Assessment Author No Risk Indicated 01/30/2025 10:52 AM EDT Musa Correa RN * [place] Suicide Severity Rating Scale (Screener/Recent Self-Report) Question [...] documented as of this encounter Care Teams Publishing Agent Relationship Specialty Start Date End Date Raphael Mendoza MD [address] [place] [address] PCP - General Family Medicine 05/05/22 documented as of this encounter
[2025-03-01 09:31] VITALS: BP 155/115; PULSE 46; RESP 17; O2SAT 95
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
[2025-03-01 09:41] VITALS: BP 155/115; PULSE 60; RESP 16; TEMP 36.7; O2SAT 95
== END 2025-03-01 09:43 | disposition left against medical advice (07) ==
PROVIDERS: Emergency Provider Student in an Organized Health Care Education/Training Program
DX: M25.551 Pain in right hip (principal); R00.1 Bradycardia, unspecified; I48.0 Paroxysmal atrial fibrillation; R10.813 Right lower quadrant abdominal tenderness; V49.40XA Driver injured in collision with unspecified motor vehicles in traffic accident, initial encounter
CPT/HCPCS: 93005; 99284